=== PATIENT | female | born 1945 | race Caucasian/White ===

== ENCOUNTER → 2023-05-30 08:54 | Outpatient (REF) | payer OTHER, SELFPAY ==
[2023-05-30 10:24] LABS: % Basophils 0.6 % (0-2); % Eosinophils 1.1 % (0-6); % Immature Granulocytes 0.6 % (0-0.5); % Lymphocytes 15.9 % (20.5-51.1); % Monocytes 7.6 % (1.7-9.3); % Neutrophils 74.2 % (42.2-75.2); Absolute Basophils 0.1 10^3/uL (0-0.2); Absolute Eosinophils 0.1 10^3/uL (0-0.7); Absolute Immature Granulocytes 0.1 10^3/uL (0-0.05); Absolute Lymphocytes 1.5 10^3/uL (1.2-3.4); Absolute Monocytes 0.7 10^3/uL (0.1-0.6); Absolute Neutrophils 7.1 10^3/uL (1.4-6.5); Hematocrit 31.7 % (37.0-47.0); Hemoglobin 9.8 g/dL (12.0-16.0); Mean Corp Hgb Conc. 30.9 g/dL (33.0-37.0); Mean Corpuscular Hgb 31.1 pg (27.0-31.0); Mean Corpuscular Volume 100.6 fL (81.0-99.0); Mean Platelet Volume 8.1 fL (7.4-10.4); Nucleated Red Blood Cells % 0 %; Platelet Count 338 10^3/uL (130-400); Red Blood Cell Count 3.15 10^6/uL (4.20-5.40); Red Cell Dist. Width 13.3 % (11.5-14.5); White Blood Cell Count 9.5 10^3/uL (4.8-10.8)
[2023-05-30 10:53] LABS: ALT (SGPT) 22 U/L (0-35); AST (SGOT) 44 U/L (14-36); Albumin 3.9 g/dl (3.5-5.0); Alkaline Phosphatase 92 U/L (38-126); Blood Urea Nitrogen 31 mg/dl (7-17); Calcium 9.6 mg/dl (8.4-10.2); Carbon Dioxide 24 mmol/L (22-30); Chloride 105 mmol/L (98-107); Glucose 83 mg/dl (70-99); HDL Cholesterol 91 mg/dl; LDL Cholesterol, Calculated 76 mg/dl; Potassium 4.9 mmol/L (3.5-5.1); Sodium 137 mmol/L (135-145); Total Bilirubin 0.5 mg/dl (0.2-1.3); Total Cholesterol 183 mg/dl (50-199); Total Protein 7.5 g/dl (6.3-8.2); Triglyceride 81 mg/dl (10-149); Very Low Density Lipoprotein 16 mg/dl (0-30); eGFR 51.75
[2023-05-30 11:30] LABS: TSH Reflex To Free T4 5.32 uIU/ml (0.47-4.68)
[2023-05-30 11:59] LABS: Free T4 0.98 ng/dl (0.78-2.19)
== END ==
LOC: RAD 08:54
PROVIDERS: ATTENDING PHYSICIAN Internal Medicine Rheumatology; FAMILY PHYSICIAN Physician Assistant
DX: M81.0 Age-related osteoporosis without current pathological fracture (principal); Z13.820 Encounter for screening for osteoporosis; D63.8 Anemia in other chronic diseases classified elsewhere; E55.9 Vitamin D deficiency, unspecified; J44.9 Chronic obstructive pulmonary disease, unspecified
CPT/HCPCS: 36415; 77080; 80053; 80061; 84439; 84443; 85025; 86140

== ENCOUNTER → 2023-11-25 08:59 | Outpatient (REF) | payer OTHER, SELFPAY ==
[2023-11-25 10:02] LABS: % Basophils 0.9 % (0-2); % Immature Granulocytes 0.5 % (0-0.5); % Lymphocytes 10.9 % (20.5-51.1); % Monocytes 7.5 % (1.7-9.3); % Neutrophils 79.2 % (42.2-75.2); Absolute Basophils 0.1 10^3/uL (0-0.2); Absolute Eosinophils 0.1 10^3/uL (0-0.7); Absolute Immature Granulocytes 0.1 10^3/uL (0-0.05); Absolute Monocytes 0.7 10^3/uL (0.1-0.6); Absolute Neutrophils 7.4 10^3/uL (1.4-6.5); Hematocrit 31.6 % (37.0-47.0); Mean Corp Hgb Conc. 31.6 g/dL (33.0-37.0); Mean Corpuscular Volume 104.3 fL (81.0-99.0); Nucleated Red Blood Cells % 0 %; Platelet Count 429 10^3/uL (130-400); Red Blood Cell Count 3.03 10^6/uL (4.20-5.40); Red Cell Dist. Width 13.3 % (11.5-14.5); White Blood Cell Count 9.4 10^3/uL (4.8-10.8)
[2023-11-25 10:25] LABS: ALT (SGPT) 21 U/L (0-35); AST (SGOT) 49 U/L (14-36); Albumin 4.2 g/dl (3.5-5.0); Alkaline Phosphatase 92 U/L (38-126); Blood Urea Nitrogen 41 mg/dl (7-17); Calcium 10.3 mg/dl (8.4-10.2); Carbon Dioxide 25 mmol/L (22-30); Chloride 102 mmol/L (98-107); Glucose 83 mg/dl (70-99); Iron 119 ug/dl (37-170); Potassium 5.2 mmol/L (3.5-5.1); Sodium 136 mmol/L (135-145); Total Bilirubin 0.5 mg/dl (0.2-1.3); Total Protein 7.6 g/dl (6.3-8.2); eGFR 51.75
[2023-11-25 10:37] LABS: Percent Saturation 46 % (20-50); Total Iron Binding Capacity 257 ug/dl (265-497)
[2023-11-25 11:08] LABS: Hepatitis B Surface Antigen Negative (Negative)
[2023-11-25 11:26] LABS: Hepatitis B Core Ab, Total Negative (Negative); Hepatitis C Antibody Negative (Negative)
[2023-11-25 11:56] LABS: Vitamin D, 25-OH*** 46.7 ng/mL (30-80)
[2023-11-25 12:14] LABS: Ferritin 42.8 ng/ml (11.1-264.0)
[2023-11-25 13:24] LABS: Folate > 20.0 ng/ml (2.76-20); Vitamin B12 836 pg/ml (239-931)
[2023-11-27 11:47] LABS: Quantiferon Mitogen minus NIL 9.94 IU/mL; Quantiferon NIL 0.01 IU/mL; Quantiferon Plus TB1 minus NIL 0.01 IU/mL (<=0.34); Quantiferon Plus TB2 minus NIL 0.01 IU/mL (<=0.34); Quantiferon TB Gold Plus Negative (Negative)
== END ==
LOC: REG 08:59
PROVIDERS: ATTENDING PHYSICIAN Internal Medicine Rheumatology; FAMILY PHYSICIAN Physician Assistant
DX: D63.8 Anemia in other chronic diseases classified elsewhere (principal); E55.9 Vitamin D deficiency, unspecified; J44.9 Chronic obstructive pulmonary disease, unspecified; M05.9 Rheumatoid arthritis with rheumatoid factor, unspecified; M15.9 Polyosteoarthritis, unspecified; M85.80 Other specified disorders of bone density and structure, unspecified site; R79.82 Elevated C-reactive protein (CRP); R94.5 Abnormal results of liver function studies; Z11.1 Encounter for screening for respiratory tuberculosis; Z11.59 Encounter for screening for other viral diseases; Z79.899 Other long term (current) drug therapy
CPT/HCPCS: 36415; 80053; 82306; 82607; 82728; 82746; 83540; 83550; 85025; 86140; 86480; 86704; 86803; 87340

== ENCOUNTER → 2024-01-08 16:02 | Outpatient (REF) | payer OTHER, SELFPAY | LOC: WDC 16:02 | PROVIDERS: ATTENDING PHYSICIAN Physician Assistant | DX: Z12.31 Encounter for screening mammogram for malignant neoplasm of breast (principal) | CPT/HCPCS: 77063; 77067 ==

== ENCOUNTER 2024-02-22 15:08 | Inpatient (IN) | payer OTHER, MEDICARE, SELFPAY ==
[2024-02-22 11:03] VITALS: BP 129/78
[2024-02-22 12:00] VITALS: BP 134/61
--- NOTE | 2024-02-22 12:34 | ED.GENMED ---
History of Present Illness
General
Chief Complaint: Fall
Source: patient
Time Seen by Provider: 02/22/24 12:09
History of Present Illness
History of Present Illness:
78yoF with a history of COPD and rheumatoid arthritis presenting for evaluation after a fall. Patient was at home yesterday afternoon when she lost her footing and fell directly on her right hip. She denies any head strike or loss of
consciousness. She was able to get up immediately after the fall. Patient reports ongoing right hip pain since then although her pain is improved today. She has no other complaints and denies any paresthesias, headache, neck pain, back pain.
Oxygen saturation 87 to 89% here. She has baseline COPD and denies any shortness of breath or chest pain currently.
Past History
Past History
ED Past Medical History: Cancer (breast), COPD, HTN, Hypercholesterolemia and Psychiatric
ED Past Surgical History: Other (The patient has had a lumpectomy in the left breast, perforated bowel)
Social History
Tobacco: Former smoker
Alcohol: Former
Personal:
Living: with family
Phy Exam
General Physical Exam
General Presentation: well appearing and no apparent distress
General age: appears stated age
General Skin: warm and dry
General Habitus: normal and elderly
General Mental: alert
Cardiovascular Exam
Cardiovascular Exam: tachycardia
Pulmonary Exam
Pulmonary Exam: lungs clear, no respiratory distress, no crackles and no wheezing
Sameer Coma Scale
Eye Opening: Spontaneous
Verbal Response: Oriented
Motor Response: Obeys Commands
GCS Total Score: 15
Musculoskeletal Exam
Musculoskeletal Exam: other (R hip: No deformity or ecchymosis. No pain to palpation. No pain with passive internal/external rotation. ROM intact. 2+ DP pulse and sensation intact.)
Skin Exam
Skin Exam: normal color and warm/dry
Psychiatric Exam
Psychiatric Exam: normal mood/affect
Course
Orders/Labs/Results
Orders:
Orders
02/22/24 Lunch
Regular
At Your Request: Full Participation
02/22/24 11:12
Hip, Right 2-3 Views [CR Hip - RT w/wo Pel 2-3 Vw*] Urgent
Comment:
Reason For Exam: fall
Include a pelvis x-ray?: Yes
02/22/24 12:33
CT Pelvis W/o Iv Contrast Urgent
Comment:
Reason For Exam: R hip pain, abnormal x-ray
CR Femur - Right Min 2 Vw Urgent
Comment:
Reason For Exam: fall, hip fracture
02/22/24 14:11
Type+Screen Urgent
Complete Blood Count/With Diff Urgent
Comprehensive Metabolic Panel Urgent
02/22/24 14:31
CXR2 [CR Chest - 2 Views ] Routine
Comment:
Reason For Exam: hypoxemia
02/22/24 14:45
Admit/Transfer Patient As Directed
Co-Sign Provider:
Level of Care: Inpatient admission
Assign to:: Medical/Surgical
Physician / Group: Hospitalist
Diagnosis: Right Hip fracture
Reason for Hospitalization: as above
Expected length of stay greater than two midnights?: Yes
ELOS- Estimated Length of Stay in days: 3
I certify the patient meets the requirements for IP care: Yes
02/22/24 14:46
PRN Pain Medication Management As Directed
May give lesser potent ordered pain med per pt: Yes
preference::
Protocol:: Medication orders for pain may be administered in a
manner that supports deferring to patient preference
when the pt is:
- Requesting an ordered lesser potent pain medication.
Least to most potent pain medications are defined
as: acetaminophen < NSAID < tramadol < opioids
(morphine, oxycodone, hydromorphone).
- Requesting a lesser dose of the same medication IF
ORDERED.
- Requesting a less intrusive route of administration
if both routes are prescribed by the provider (PO <
IV).
02/22/24 14:51
Code Status As Directed
Resuscitation Status: Full Code
02/22/24 16:30
Acetaminophen [Tylenol] 650 mg PO Q4HWA
Magnesium Hydroxide [Milk of Magnesia] 30 ml PO DAILYPRN PRN
Oxycodone [Roxicodone] 5 mg PO Q4HPRN PRN
Prednisone [Deltasone] 5 mg PO DAILYPRN PRN
Tamsulosin [Flomax] 0.4 mg PO DAILYPRN PRN
02/22/24 16:30
ORTHOPEDIC CONSULT Routine
Consulting Provider: Hipolito Warren
Was physician already notified: Yes
Reason for consult: Right hip fracture
Activity As Directed
Activity Level: As Tolerated
Intake/ Output As Directed
Frequency: Per unit guidelines
Vital Signs As Directed
Frequency: Per unit guidelines
Oxygen Therapy [O2 Therapy] [RESP] Routine
Titrate/Wean O2 to maintain O2 sat greater than (%): 91
DX Deep Vein Thrombosis Video Routine
02/22/24 18:00
Enoxaparin Sodium [Lovenox] 40 mg SC QPM
Hydroxychloroquine [Plaquenil] 300 mg PO QPM
02/22/24 20:00
Docusate Sodium [Colace] 100 mg PO BID
Sennosides [Senokot] 17.2 mg PO BID
sulfasalazine 1 grams PO BID
02/22/24 22:00
Atorvastatin [Lipitor] 10 mg PO HS
Diphenhydramine [Benadryl] 50 mg PO HS
02/23/24 Breakfast
NPO
Allow oral meds: Yes
Allow clear liquids: No
02/23/24 08:00
Budesonide/Formoterol 80/4.5 [Symbicort 80/4.5 Mcg Inhaler] 2 puff INH R BID
Calcium Polycarbophil [Fibercon] 625 mg PO DAILY
Escitalopram Oxalate [Lexapro] 20 mg PO DAILY
Lactobac/Bifidobac [Visbiome] 1 cap PO DAILY
Lisinopril [Zestril] 10 mg PO DAILY
glucosamine sulfate [Glucosamine] 500 mg PO DAILY
vilazodone 40 mg PO DAILY
Abnormal Lab Results
02/22/24
14:11
WBC 14.3 H 10^3/uL
(4.8-10.8)
RBC 2.71 L 10^6/uL
(4.20-5.40)
Hgb 9.0 L g/dL
(12.0-16.0)
Hct 27.8 L %
(37.0-47.0)
MCV 102.6 H fL
(81.0-99.0)
MCH 33.2 H pg
(27.0-31.0)
MCHC 32.4 L g/dL
(33.0-37.0)
Abs Immat Gran (auto) 0.1 H 10^3/uL
(0-0.05)
Absolute Neuts (auto) 12.0 H 10^3/uL
(1.4-6.5)
Absolute Lymphs (auto) 0.9 L 10^3/uL
(1.2-3.4)
Absolute Monos (auto) 1.2 H 10^3/uL
(0.1-0.6)
Immature Gran % 0.6 H %
(0-0.5)
Neutrophils % 83.8 H %
(42.2-75.2)
Lymphocytes % 6.4 L %
(20.5-51.1)
Sodium 134 L mmol/L
(135-145)
BUN 40 H mg/dl
(7-17)
Creatinine 1.2 H mg/dL
(0.6-1.0)
AST 58 H U/L
(14-36)
02/22/24 14:11
02/22/24 14:11
Vital Signs
Initial and Last Documented VS:
Initial Vital Signs
Temp Pulse Resp BP Pulse Ox
98.4 F 108 16 129/78 87
02/22/24 11:03 02/22/24 11:03 02/22/24 11:03 02/22/24 11:03 02/22/24 11:03
Last Documented Vital Signs
Temp Pulse Resp BP Pulse Ox
98.5 F 115 16 162/62 95
02/22/24 16:30 02/22/24 16:30 02/22/24 16:30 02/22/24 16:30 02/22/24 16:30
MDM/Problems Addressed
Differential Diagnosis Includes:
78yoF here with R hip pain after a fall last night. She is able to bear weight. Patient hypoxic to 87% in triage. Hx of COPD. She denies any respiratory complaints and respirations are non-labored. No deformity on exam and ROM of R hip normal. RLE
is neurovascularly intact. Differential diagnosis includes but is not limited to: fracture, strain, contusion
X-rays of R hip obtained in triage which show a likely fracture. Will proceed with CT pelvis and R femur x-rays.
*Critical Care Note
Total Time (30-74mins, 75-104mins- exclusive of procedures): Not Applicable
Update Note
Update Note:
CT confirms femoral neck fracture. Orthopedics team notified of patient and she was admitted for further management.
ED Attending Note
-
Portions of this chart may have been created with voice recognition software.� Occasional wrong word or��sound alike� substitutions may have occurred due to the inherent limitations of voice recognition software.
Discharge Plan
Departure
Patient Disposition: Admit
Date of Disposition: 02/22/24
Time of Disposition: 14:11
Presentation/result/management discussed w/ accepting MD/DO: Hospitalist
Discharge Problem:
Closed fracture of neck of right femur
Interventions
Interventions:
*Risk Screen - Suicide Last Done: 02/22/24 11:03
*General Assessment Last Done: 02/22/24 11:03
*Neglect/Abuse Screening Last Done: 02/22/24 11:03
ED- Fall Risk Assessment Last Done: 02/22/24 16:13
*ED COVID-19 Vaccine History Last Done: 02/22/24 11:46
*Nursing Disposition Last Done: 02/22/24 16:13
ED-Musculoskeletal Assessment Last Done: 02/22/24 11:47
ED- Neurological Assessment Last Done: 02/22/24 11:47
ED-Skin Assessment Last Done: 02/22/24 11:47
Discharge Date and Time
Discharge Date/Time: 02/22/24 16:20
[2024-02-22 13:00] VITALS: BP 151/64
[2024-02-22 14:00] VITALS: BP 155/71
[2024-02-22 14:16] LABS: % Basophils 0.6 % (0-2); % Eosinophils 0.3 % (0-6); % Immature Granulocytes 0.6 % (0-0.5); % Lymphocytes 6.4 % (20.5-51.1); % Monocytes 8.3 % (1.7-9.3); % Neutrophils 83.8 % (42.2-75.2); Absolute Basophils 0.1 10^3/uL (0-0.2); Absolute Immature Granulocytes 0.1 10^3/uL (0-0.05); Absolute Lymphocytes 0.9 10^3/uL (1.2-3.4); Absolute Monocytes 1.2 10^3/uL (0.1-0.6); Hematocrit 27.8 % (37.0-47.0); Mean Corp Hgb Conc. 32.4 g/dL (33.0-37.0); Mean Corpuscular Hgb 33.2 pg (27.0-31.0); Mean Corpuscular Volume 102.6 fL (81.0-99.0); Mean Platelet Volume 7.9 fL (7.4-10.4); Nucleated Red Blood Cells % 0 %; Platelet Count 309 10^3/uL (130-400); Red Blood Cell Count 2.71 10^6/uL (4.20-5.40); White Blood Cell Count 14.3 10^3/uL (4.8-10.8)
[2024-02-22 14:35] LABS: ALT (SGPT) 26 U/L (0-35); AST (SGOT) 58 U/L (14-36); Albumin 3.9 g/dl (3.5-5.0); Alkaline Phosphatase 85 U/L (38-126); Blood Urea Nitrogen 40 mg/dl (7-17); Calcium 9.5 mg/dl (8.4-10.2); Carbon Dioxide 25 mmol/L (22-30); Chloride 100 mmol/L (98-107); Glucose 83 mg/dl (70-99); Potassium 4.7 mmol/L (3.5-5.1); Sodium 134 mmol/L (135-145); Total Bilirubin 0.4 mg/dl (0.2-1.3); Total Protein 7.5 g/dl (6.3-8.2); eGFR 46.62
--- NOTE | 2024-02-22 14:48 | CON.ORTHO ---
Consultation
-
Date/Time Consultation Requested: 02/22/2024 1430
Date/Time Consultation Performed: 02/22/2024; 1448
Requesting Provider: Dunia Clark PA-C
Performing Provider: Dr. Hipolito Warren / Melodie Lozano PA-C
Reason for Consultation: Right femoral neck fracture
Consultation - Orthopedics
History
Patient was seen and evaluated by both Dr. Warren and myself.
Ms. Gonzalez is a 78 year old female with PMH of COPD, rheumatoid arthritis and osteoporosis seen today for evaluation of her right hip. She reports she tripped while walking yesterday and landed directly on her right hip. She experienced onset of pain,
but was able to get up and continue ambulating. She reports she experienced discomfort in the hip following the incident, and presented to ED at the urging of her daughter and son-in-law. She is resting comfortably in bed at present. She denies
pain elsewhere. She lives at home with her , Brandon, who is at the bedside today. She typically ambulates without assistance. She denies PMH of DM, DVT, CVA or DC. She is not on any daily blood thinners. She reports breathing difficulty after
general anesthesia years ago when she underwent abdominal surgery. She denies history of other orthopedic surgeries.
Allergies / Home Medications
Allergy/AdvReac Type Severity Reaction Status Date / Time
cefaclor [From Ceclor] Allergy hives, Verified 02/22/24 11:03
flushed
�Medication �Instructions �Recorded
escitalopram oxalate 20 mg tablet 20 mg PO DAILY ##0 02/05/14
hydroxychloroquine 200 mg tablet 300 mg PO QPM 04/27/17
Lactobac no.2-Bifidobac no.1-S. 1 cap PO DAILY 02/22/24
thermo 112.5 billion cell capsule
(Visbiome)
calcium polycarbophil 625 mg 625 mg PO DAILY 02/22/24
tablet (Fiber (calcium
polycarbophil))
diphenhydramine 25 2 tab PO HS 02/22/24
mg-acetaminophen 500 mg tablet
(Tylenol PM Extra Strength)
fluticasone fur. 100 mcg-umeclid 1 inh inhalation R DAILY 02/22/24
62.5 mcg-vilant 25 mcg
inhalat.powder (Trelegy Ellipta)
glucosamine sulfate 500 mg tablet 500 mg PO DAILY 02/22/24
(Glucosamine)
lisinopril 10 1 tab PO DAILY 02/22/24
mg-hydrochlorothiazide 12.5 mg
tablet
prednisone 5 mg tablet 5 mg PO DAILYPRN PRN joint pain 02/22/24
simvastatin 20 mg tablet 20 mg PO HS 02/22/24
sulfasalazine 500 mg 1 g PO BID 02/22/24
tablet,delayed release
therapeutic multivitamin 1 tab PO DAILY 02/22/24
vilazodone 40 mg tablet 40 mg PO DAILY 02/22/24
Vital Signs / Lab Results
Temp Pulse Resp BP Pulse Ox
98.4 F 98 16 155/71 87
02/22/24 11:03 02/22/24 14:05 02/22/24 14:05 02/22/24 14:00 02/22/24 14:01
02/22/24 14:11
02/22/24 14:11
XR Right Hip IMPRESSION:
Likely mildly impacted subcapital fracture, neck, proximal right femur.
CT Pelvis IMPRESSION:
1. Minimally displaced, slightly impacted fracture of the right femoral neck.
2. No additional fractures are appreciated.
Directed exam of the right lower extremity reveals no obvious erythema, ecchymosis or lesions. No tenderness to palpation about the hip. Thigh soft and compressible. Hip ROM deferred secondary to known hip fracture. Minimal discomfort with log roll.
Calf soft and nontender. Patient able to wiggle toes, plantar and dorsiflex ankle. Neurovascularly intact distally.
Assessment / Plan
Right femoral neck fracture
--Unfortunately, Gerri sustained a right femoral neck fracture in her fall. Both surgical and non-surgical treatment options were discussed in detail. We recommend proceeding with a right hip bipolar endoprosthesis. The risks, benefits, alternatives,
recovery process and potential complications were discussed in detail. She would like to proceed with surgical intervention of her fracture. Surgical and blood consent is signed and has been scanned into the patient's chart. We will plan to proceed
with surgery tomorrow under the direction of Dr. Warren. Ideally, this would be done under spinal anesthesia given patient's baseline COPD and history of breathing difficulty after general anesthesia.
--NPO after midnight for OR tomorrow (02/22).
--Bedrest until surgery. NWB to RLE.
--Pain control as needed. Ice prn for pain and edema control.
--Antibiotics and irrigation ordered to OR.
--Patient is anemic (hgb 9.0) on presentation to ED today. Repeat H&H in AM.
--Type+screen ordered and pending.
--Orthopedics will continue to follow along.
--- NOTE | 2024-02-22 14:55 | HPS.HSE ---
Addendum entered and electronically signed by Faraz Vallejo MD 02/22/24 16:03:
I personally performed a history and physical exam of the patient and discussed management with the resident. I reviewed the resident's note and agree with the documented findings and plan of care [facility]/CC.
Original Note:
Family Physician
-
Family Physician: Abena Abad
Chief Complaint
-
fall
History of Present Illness
This is a 78-year-old female with history of COPD, rheumatoid arthritis, hypertension, hypercholesterolemia who presented to ED for evaluation after a fall. Patient reports she was walking out of a driveway, she lost her footing as she fell
directly on her right hip. She denies hitting her head on the floor. She was able to get up immediately after the fall. She did not lose consciousness before the fall, and considers it a mechanical fall. Per daughter in the room, patient has
been having unsteadiness over the past few months. She has had only 1 fall in the past year, 2 falls in total over the past 10 years. She was brought to the ED mainly because of the ongoing unsteadiness. Patient reports ongoing right hip pain
since the fall. The pain has improved with Tylenol use. She denies headaches, back pain, chest pain. In addition, patient with a history of COPD. She has had an increase of oxygen demand over the past few months. She does not use oxygen at
home. Per daughter, O2 sats ranges from 88 to 90% on room air at home. On presentation to ER, patient is afebrile, with blood pressure 129/78, respiratory rate 16, O2 sats 89% on room air. Evaluation with a pelvis CT shows a minimally
displaced, slightly impacted fracture of the right femoral neck.
Medical History
Past Medical History
Past Medical History: Reports Other (Breast cancer, COPD, hypertension, hypercholesterolemia, anxiety/depression)
Past Surgical History: Reports Other (Lumpectomy for left breast cancer, perforated bowel)
Social History
Tobacco: Former Smoker (1 pack/day for 30 years, she quit 2009.)
Alcohol: None
Drug: None
Personal:
Living: With Family
Family History
Family History: Not pertinent
Allergies / Home Medications
Allergies reflects when Allergies were last updated in [employer].
Home Medications with original date entered in [employer]
Allergy/Medication List:
Allergies
Allergy/AdvReac Type Severity Reaction Status Date / Time
cefaclor [From [facility]] Allergy hives, Verified 02/22/24 11:03
flushed
Home Medications
escitalopram oxalate 20 mg tablet 20 mg PO DAILY ##0 02/05/14
hydroxychloroquine 200 mg tablet 300 mg PO QPM 04/27/17
Lactobac no.2-Bifidobac no.1-S. thermo 112.5 billion cell capsule (Visbiome) 1 cap PO DAILY 02/22/24
calcium polycarbophil 625 mg tablet (Fiber (calcium polycarbophil)) 625 mg PO DAILY 02/22/24
diphenhydramine 25 mg-acetaminophen 500 mg tablet (Tylenol PM Extra Strength) 2 tab PO HS 02/22/24
fluticasone fur. 100 mcg-umeclid 62.5 mcg-vilant 25 mcg inhalat.powder (Trelegy Ellipta) 1 inh inhalation R DAILY 02/22/24
glucosamine sulfate 500 mg tablet (Glucosamine) 500 mg PO DAILY 02/22/24
lisinopril 10 mg-hydrochlorothiazide 12.5 mg tablet 1 tab PO DAILY 02/22/24
prednisone 5 mg tablet 5 mg PO DAILYPRN PRN joint pain 02/22/24
simvastatin 20 mg tablet 20 mg PO HS 02/22/24
sulfasalazine 500 mg tablet,delayed release 1 g PO BID 02/22/24
therapeutic multivitamin 1 tab PO DAILY 02/22/24
vilazodone 40 mg tablet 40 mg PO DAILY 02/22/24
Review of Systems
-
A 12 point ROS was completed and negative except as noted: Yes
Constitutional: Reports See HPI
Respiratory: Reports No Symptoms
Cardiac: Reports No Symptoms
Physical Exam
Vital Signs
Vital Signs
Temp Pulse Resp BP Pulse Ox
98.4 F 98 16 155/71 87
02/22/24 11:03 02/22/24 14:05 02/22/24 14:05 02/22/24 14:00 02/22/24 14:01
Physical Exam
General: No Apparent Distress
HEENT: NormoCephalic
Respiratory: Wheezes (Expiratory wheezes); No Crackles
Cardiac: S1/S2 and Regular Rhythm
GI: Soft, Non Tender, Non Distended and Normal Bowel Sounds
Musculoskeletal: No Edema
Neuro: Awake, Alert, Oriented and AO x 3
Psych: Calm
Laboratory Results
-
02/22/24 14:11
02/22/24 14:11
Laboratory Results
Total Bilirubin 0.4 mg/dl (0.2-1.3) 02/22/24 14:11
AST 58 U/L (14-36) H 02/22/24 14:11
ALT 26 U/L (0-35) 02/22/24 14:11
Alkaline Phosphatase 85 U/L (38-126) 02/22/24 14:11
Impression/Plan
-
IMPRESSION/PLAN
# Acute right femoral neck fracture s/p fall
-Xray Right Hip- Likely mildly impacted subcapital fracture, neck, proximal right femur.
-Ortho consulted
-Nonweightbearing to right lower extremity
-Pain control as needed
-Perioperative cardiovascular risk assessment for noncardiac surgery- the patient's MET score > 4.
-patient is low�moderate risk for orthopedic surgery
-patient appears medically optimized for orthopedic surgery at this time.
#Acute hypoxemic respiratory insufficiency likely secondary to COPD progression
-Check chest x-ray
-Qhlyl-jzs-jdris oxygen, titrate to 91%
-Continue Trelegy Ellipta
-Will possibly need home O2 assessment prior to discharge
# Essential hypertension
-Continue home meds lisinopril/hydrochlorothiazide
# CKD 3B
-Creatinine at baseline
#Anemia
-Hgb on presentation 9.0, (baseline runs at this level 9�10)
-Possibly anemia of chronic disease
# Rheumatoid arthritis
-Continue hydroxychloroquine
#Hyperlipidemia
-Continue statins
# Depression/anxiety
-Continue escitalopram, vilazodone
CODE STATUS-full code
DVT prophylaxis-Lovenox
--- NOTE | 2024-02-22 14:55 | W.PN.UPDATE ---
Update Note
Progress Note Update
I personally performed a history and physical exam of the patient and discussed management with the resident. I reviewed the resident's note and agree with the documented findings and plan of care HPI/CC.
78-year-old female presents after mechanical fall resulting in a right femoral neck fracture. No other acute complaints. As per patient's family over the last number of weeks they have noticed that she is in the mid-80s pulse ox on room air.
Gen: NAD, Awake and alert, appears chronically ill
Eyes: EOMI, PERRLA, no scleral icterus.
Neck: supple.
CV: RRR, +S1/S2, no m/r/g.
Resp: Very faint expiratory wheezes, no rales or rhonchi.
Abd: +BS, soft, NT, ND
Skin: No rashes.
Neuro: CN 2-12 intact, non-focal.
Psych: Normal mood and affect.
Lab Results
02/22/24
14:11
WBC 14.3 H
RBC 2.71 L
Hgb 9.0 L
Hct 27.8 L
MCV 102.6 H
MCH 33.2 H
MCHC 32.4 L
RDW 14.0
Plt Count 309
MPV 7.9
Abs Immat Gran (auto) 0.1 H
Absolute Neuts (auto) 12.0 H
Absolute Lymphs (auto) 0.9 L
Absolute Monos (auto) 1.2 H
Absolute Eos (auto) 0.0
Absolute Basos (auto) 0.1
Immature Gran % 0.6 H
Neutrophils % 83.8 H
Lymphocytes % 6.4 L
Monocytes % 8.3
Eosinophils % 0.3
Basophils % 0.6
Nucleated RBC % 0
Sodium 134 L
Potassium 4.7
Chloride 100
Carbon Dioxide 25
BUN 40 H
Creatinine 1.2 H
eGFR 46.62
Glucose 83
Calcium 9.5
Total Bilirubin 0.4
AST 58 H
ALT 26
Alkaline Phosphatase 85
Total Protein 7.[address] Pelvis:
1. Minimally displaced, slightly impacted fracture of the right femoral neck.
2. No additional fractures are appreciated.
Acute right femoral neck fracture:
-Regarding perioperative cardiovascular risk assessment for noncardiac surgery the patient is MET score is greater than 4. Patient's family reports that they live in a two-story home and she 'climbs stairs all day.' Denies any symptoms that are
consistent with stable or unstable angina or decompensated congestive heart failure. Patient is not diabetic. Patient does have CKD3b which is a risk factor. Orthopedic surgery is moderate risk. Overall the patient is low�moderate risk for
orthopedic surgery. I recommend proceeding with planned orthopedic surgery as the benefit outweighs the risk. The patient appears medically optimized for orthopedic surgery at this time.
-discussed with ortho
Acute hypoxemic respiratory insufficiency:
-I suspect this is related to progression of the patient's COPD. Likely the patient requires oxygen [id number].
-check CXR
-I suspect the patient's leukocytosis with left shift is reactive. She currently is not reporting any symptoms that would suggest acute infection at this time.
-Will need home O2 eval prior to discharge
-cont Trelegy
Essential HTN:
-cont Lisionpril/HCTZ
RA:
-cont Plaquenil
FULL/Lovenox
[2024-02-22 16:30] VITALS: BP 162/62
[2024-02-22] MEDS: TYLENOL 650 MG PO ×2 (17:20→20:56)
[2024-02-22] MEDS: ROXICODONE 5 MG PO (17:20)
[2024-02-22] MEDS: PLAQUENIL 300 MG PO (17:21)
[2024-02-22] MEDS: LOVENOX 40 MG SC (17:22)
[2024-02-22 19:15] VITALS: BMI 18.5
[2024-02-22] MEDS: COLACE PO (20:56)
[2024-02-22] MEDS: SENOKOT PO (20:56)
[2024-02-22] MEDS: BENADRYL 50 MG PO (20:57)
[2024-02-22] MEDS: LIPITOR 10 MG PO (20:57)
[2024-02-22] MEDS: NON-FORMULARY ITEM 1000 GRAMS PO (20:59)
[2024-02-22 23:30] VITALS: BP 116/44
[2024-02-22] MEDS: TYLENOL PO (23:39)
[2024-02-23] VITALS (17 sets, daily range): BP systolic 95–147; BP diastolic 51–70
[2024-02-23] MEDS: ROXICODONE 5 MG PO ×2 (00:27→20:07)
[2024-02-23] MEDS: TYLENOL PO ×2 (04:12→17:08)
[2024-02-23 06:56] LABS: % Basophils 0.8 % (0-2); % Eosinophils 2.1 % (0-6); % Immature Granulocytes 0.4 % (0-0.5); % Lymphocytes 8.4 % (20.5-51.1); % Monocytes 10.9 % (1.7-9.3); % Neutrophils 77.4 % (42.2-75.2); Absolute Basophils 0.1 10^3/uL (0-0.2); Absolute Eosinophils 0.2 10^3/uL (0-0.7); Absolute Lymphocytes 0.8 10^3/uL (1.2-3.4); Absolute Neutrophils 7.3 10^3/uL (1.4-6.5); Hematocrit 26.9 % (37.0-47.0); Hemoglobin 8.5 g/dL (12.0-16.0); Mean Corp Hgb Conc. 31.6 g/dL (33.0-37.0); Mean Corpuscular Hgb 32.9 pg (27.0-31.0); Mean Corpuscular Volume 104.3 fL (81.0-99.0); Mean Platelet Volume 8.2 fL (7.4-10.4); Nucleated Red Blood Cells % 0 %; Platelet Count 307 10^3/uL (130-400); Red Blood Cell Count 2.58 10^6/uL (4.20-5.40); Red Cell Dist. Width 14.1 % (11.5-14.5); White Blood Cell Count 9.4 10^3/uL (4.8-10.8)
[2024-02-23 07:41] LABS: Blood Urea Nitrogen 33 mg/dl (7-17); Carbon Dioxide 21 mmol/L (22-30); Chloride 103 mmol/L (98-107); Estimated Creatinine Clearance 30 ml/min; Glucose 80 mg/dl (70-99); Potassium 4.8 mmol/L (3.5-5.1); Sodium 139 mmol/L (135-145); eGFR 51.75
[2024-02-23] MEDS: SYMBICORT 80/4.5 MCG INHALER 2 PUFF INH (07:44)
[2024-02-23] MEDS: SPIRIVA RESPIMAT 2.5 MCG 2 PUFF INH (07:44)
--- NOTE | 2024-02-23 08:06 | W.PN.HOSP.TC ---
Addendum entered and electronically signed by Faraz Vallejo MD 02/23/24 10:56:
I saw and evaluated the patient. I reviewed the resident�s note and agree with findings and plan as documented in the resident�s note.
Gen: remains NAD, Awake and alert, appears chronically ill
Eyes: EOMI, PERRLA, no scleral icterus.
Neck: supple.
CV: remains RRR, +S1/S2, no m/r/g.
Resp: CTAB anteriorly
Abd: +BS, soft, NT, ND
Skin: No rashes.
Neuro: CN 2-12 intact, non-focal.
Psych: Normal mood and affect.
CT Pelvis:
1. Minimally displaced, slightly impacted fracture of the right femoral neck.
2. No additional fractures are appreciated.
CXR:
1. Hyperinflation and interstitial coarsening, increased compared to prior chest x-ray.
2. Differential diagnosis includes worsening COPD or superimposed acute interstitial pneumonitis.
3. No evidence of lobar pneumonia, pleural effusion, or pneumothorax.
Acute right femoral neck fracture:
-Regarding perioperative cardiovascular risk assessment for noncardiac surgery the patient is MET score is greater than 4. Patient's family reports that they live in a two-story home and she 'climbs stairs all day.' Denies any symptoms that are
consistent with stable or unstable angina or decompensated congestive heart failure. Patient is not diabetic. Patient does have CKD3b which is a risk factor. Orthopedic surgery is moderate risk. Overall the patient is low�moderate risk for
orthopedic surgery. I recommend proceeding with planned orthopedic surgery as the benefit outweighs the risk. The patient appears medically optimized for orthopedic surgery at this time.
-discussed with ortho
-ortho giving 2U pRBCs preop
Acute hypoxemic respiratory insufficiency:
-I suspect this is related to progression of the patient's COPD. Likely the patient requires oxygen [id number].
-CXR findings above likely due to COPD that is progressing
-I suspect the patient's leukocytosis with left shift was likely reactive and has resolved
-Will need home O2 eval prior to discharge
-cont Trelegy
Essential HTN:
-cont Lisionpril/HCTZ
RA:
-cont Plaquenil
FULL/Lovenox
Original Note:
Today's Communication/Plan
-
.
Assessment / Plan
Assessment / Plan
# Acute right femoral neck fracture s/p fall
-Xray Right Hip- Likely mildly impacted subcapital fracture, neck, proximal right femur.
-Ortho consulted, PLAN FOR OR today.
-Nonweightbearing to right lower extremity
-Pain control as needed
-Perioperative cardiovascular risk assessment for noncardiac surgery- the patient's MET score > 4.
-patient is low�moderate risk for orthopedic surgery
-patient appears medically optimized for orthopedic surgery at this time.
#Acute hypoxemic respiratory insufficiency likely secondary to COPD progression
-chest x-ray 02/21- Hyperinflation and interstitial coarsening increased indicative of worsening COPD or superimposed acute interstitial pneumonitis.
-Jdacz-[id number] oxygen, titrate to 91%.
-Continue Trelegy Ellipta
-Will possibly need home O2 assessment prior to discharge
# Essential hypertension
-Continue home meds lisinopril/hydrochlorothiazide
# CKD 3B
-Creatinine at baseline
#Anemia
-Hgb on presentation 9.0, today 8.5 (baseline runs at level 9�10)
-Transfuse 2 units now prior to OR.
-Possibly anemia of chronic disease
# Rheumatoid arthritis
-Continue hydroxychloroquine
#Hyperlipidemia
-Continue statins
# Depression/anxiety
-Continue escitalopram, vilazodone
CODE STATUS-full code
DVT prophylaxis-Lovenox
Anticipated Discharge: > 48 hours
Subjective/Interval History
-
Date of Service: February 23, 2024
Objective Data
-
Labs:
Laboratory Results
02/23/24
05:15
WBC 9.4
Hgb 8.5 L
Hct 26.9 L
Plt Count 307
Sodium 139
Potassium 4.8
Chloride 103
Carbon Dioxide 21 L
BUN 33 H
Creatinine 1.1 H
Glucose 80
Calcium 9.0
Vital Signs:
Vital Signs
Temp Pulse Resp BP Pulse Ox
97.9 F 87 16 116/44 94
02/22/24 23:30 02/23/24 07:50 02/23/24 07:50 02/22/24 23:30 02/23/24 07:50
I&O
02/22/24 02/23/24 02/24/24
06:59 06:59 06:59
Intake Total 60 / 60
Output Total 500 / 500
Balance -440 / -440
Review of Systems
-
All other systems: Reviewed and negative (except as documented)
Physical Exam
-
General: No Apparent Distress
HEENT: Other (EOMI)
Respiratory: Wheezes; Negative Rhonchi or Crackles
Cardiac: Regular Rhythm and S1/S2
GI: Soft, Nontender, Nondistended and Normal Bowel Sounds
Musculoskeletal: No Edema
Neuro: AO x 3
Psych: Calm
[2024-02-23] MEDS: NON-FORMULARY ITEM 40 MG PO (08:20)
[2024-02-23] MEDS: NON-FORMULARY ITEM 1000 GRAMS PO ×2 (08:24→21:55)
[2024-02-23] MEDS: LEXAPRO 20 MG PO (08:25)
[2024-02-23] MEDS: VISBIOME 1 CAP PO (08:25)
[2024-02-23] MEDS: ZESTRIL 10 MG PO (08:25)
[2024-02-23] MEDS: TYLENOL 650 MG PO ×3 (08:25→19:56)
[2024-02-23] MEDS: FIBERCON 625 MG PO (08:26)
[2024-02-23] MEDS: ORETIC 12.5 MG PO (08:26)
[2024-02-23] MEDS: SENOKOT PO (08:28)
[2024-02-23] MEDS: COLACE PO (08:28)
--- NOTE | 2024-02-23 10:33 | CM ---
Patient seen at bedside with daughter Mirella
IA completed
Dx: R hip fx s/p fall
Patient lives in a 2 story home with , 2 steps to enter, flight of steps to 2nd floor
PLOF: Independent, driving
DME: states not in the home, but has access to DME
Denies housing/food/utilities/transportation insecurities
Patient receiving 2 units PRBC today - Hgb 8.5
OR today
Await PT/OT post-op
PCP: Abena Abad
Pharmacy: [facility]
PLAN: OR today, Await PT/OT evals post-op
[2024-02-23] MEDS: ATIVAN 0.5 MG PO ×2 (11:25→15:54)
--- NOTE | 2024-02-23 12:25 | W.PN.UPDATE ---
Update Note
Progress Note Update
Late entry from AM rounds due to [employer] issues.
Patient tentatively for right hip hemiarthroplasty a bit later today under the direction of Dr. Warren. Surgical and blood consents have been obtained. Operative site has been marked. ABX and irrigation products on-call. Subjectively patient
feeling well this morning, however Hgb 8.5. 2 units PRBCs ordered for transfusion this AM with a re-check of H&H around 1230. would anticipate an acceptable Hgb to proceed with right hip prosthesis. CBB notified of plan. Will be on the look out for
her results. Otherwise, she is to remain at bedrest for now. Remain NPO.
[2024-02-23 16:17] LABS: % Basophils 0.7 % (0-2); % Eosinophils 0.8 % (0-6); % Immature Granulocytes 0.7 % (0-0.5); % Lymphocytes 10.8 % (20.5-51.1); % Monocytes 8.9 % (1.7-9.3); % Neutrophils 78.1 % (42.2-75.2); Absolute Basophils 0.1 10^3/uL (0-0.2); Absolute Eosinophils 0.1 10^3/uL (0-0.7); Absolute Immature Granulocytes 0.1 10^3/uL (0-0.05); Absolute Monocytes 0.8 10^3/uL (0.1-0.6); Absolute Neutrophils 6.9 10^3/uL (1.4-6.5); Hemoglobin 11.2 g/dL (12.0-16.0); Mean Corpuscular Hgb 30.9 pg (27.0-31.0); Mean Corpuscular Volume 96.7 fL (81.0-99.0); Nucleated Red Blood Cells % 0 %; Platelet Count 275 10^3/uL (130-400); Red Blood Cell Count 3.62 10^6/uL (4.20-5.40); Red Cell Dist. Width 20.4 % (11.5-14.5); White Blood Cell Count 8.9 10^3/uL (4.8-10.8)
[2024-02-23] MEDS: SYMBICORT 80/4.5 MCG INHALER INH (20:07)
[2024-02-23] MEDS: ASPIRIN 325 MG PO (20:07)
[2024-02-23] MEDS: PLAQUENIL 300 MG PO (21:54)
[2024-02-23] MEDS: BACTROBAN 2% OINTMENT 1 APPLIC NASAL (21:55)
[2024-02-23] MEDS: NSS 1000 IV (21:55)
[2024-02-23] MEDS: SENOKOT 17.2 MG PO (21:55)
[2024-02-23] MEDS: COLACE 100 MG PO (21:55)
[2024-02-23] MEDS: LIPITOR 10 MG PO (21:56)
[2024-02-23] MEDS: LOVENOX SC (22:05)
--- NOTE | 2024-02-23 22:22 | PTCARENOTE ---
20:50 pt rec'vd from PACU, sleepy but easily arousable to verbal. Pt [address], primeaseal intact with pinpoint drainage, VS WNL, denies pain, hip precautions maintained. Daughter Mirella was notified. Pt oriented to unit.
--- NOTE | 2024-02-23 23:00 | PTCARENOTE ---
PT sleeping , Maritza held FUR MIXER OPERATOR made aware.
[2024-02-23] MEDS: BENADRYL PO (23:06)
[2024-02-24] MEDS: ANCEF 5 IV ×2 (00:24→08:25)
[2024-02-24] MEDS: TYLENOL 650 MG PO ×7 (00:24→23:59)
[2024-02-24 03:28] VITALS: BP 113/59
[2024-02-24 07:09] LABS: % Basophils 0.4 % (0-2); % Immature Granulocytes 0.8 % (0-0.5); % Lymphocytes 4.8 % (20.5-51.1); % Monocytes 5.4 % (1.7-9.3); % Neutrophils 88.6 % (42.2-75.2); Absolute Basophils 0.1 10^3/uL (0-0.2); Absolute Immature Granulocytes 0.1 10^3/uL (0-0.05); Absolute Lymphocytes 0.6 10^3/uL (1.2-3.4); Absolute Monocytes 0.6 10^3/uL (0.1-0.6); Absolute Neutrophils 10.5 10^3/uL (1.4-6.5); Hematocrit 33.6 % (37.0-47.0); Hemoglobin 10.8 g/dL (12.0-16.0); Mean Corp Hgb Conc. 32.1 g/dL (33.0-37.0); Mean Corpuscular Hgb 31.4 pg (27.0-31.0); Mean Corpuscular Volume 97.7 fL (81.0-99.0); Mean Platelet Volume 8.7 fL (7.4-10.4); Nucleated Red Blood Cells % 0 %; Platelet Count 269 10^3/uL (130-400); Red Blood Cell Count 3.44 10^6/uL (4.20-5.40); Red Cell Dist. Width 20.7 % (11.5-14.5); White Blood Cell Count 11.9 10^3/uL (4.8-10.8)
--- NOTE | 2024-02-24 07:24 | W.PN.ORTHO ---
Today's Communication / Plan
-
78-year-old female postop day 1 right hip hemiarthroplasty under the direction of Dr. Warren
--Weightbearing as tolerated to right lower extremity with assistive device. Total hip precautions for 6 to 8 weeks. We appreciate the assistance of PT/OT
-- Recommend ASA 325 mg daily x 4 weeks for DVT prophylaxis.
-- Hemoglobin 10.8 this morning. Continue to monitor. Patient did require 2 units PRBC preop.
-- Maintain surgical dressing until 7 to 10 days postop. Staple removal at 2 weeks postop.
-- Pain control as needed. Ice and elevation as needed for pain and edema control.
-- Case management consult for discharge planning.
-- Orthopedics will continue to follow along.`
Assessment
.
Distal Motor Intact: Yes
Dressing:
Clean, dry and intact.
Plan
.
Surgery / Date: Right hip hemiarthroplasty
DVT Prophylaxis: Aspirin
Activity:
Out of bed.
PT/OT
Subjective
.
.:
Ms. Gonzalez is postop day 1 following her right hip hemiarthroplasty performed by Dr. Warren. She is resting comfortably bed this morning and denies any pain in the hip at present. She has no questions or concerns at this time.
Vital Signs and Labs
.
Vital Signs and Labs:
Lab Results
02/24/24 04:55
Temp Pulse Resp BP Pulse Ox
97.3 F 98 18 113/59 95
02/24/24 03:28 02/24/24 03:28 02/24/24 03:28 02/24/24 03:28 02/24/24 03:28
Non-invasive Hgb result: 10.0
Physical Exam
-
Directed exam of the right lower extremity reveals surgical dressing clean, dry and intact. No significant tenderness to palpation about the hip. Thigh soft and compressible. Calf soft and nontender. Patient able to wiggle toes, plantar and
dorsiflex ankle. Neurovascular intact distally.
[2024-02-24 07:35] LABS: Blood Urea Nitrogen 40 mg/dl (7-17); Calcium 8.3 mg/dl (8.4-10.2); Carbon Dioxide 21 mmol/L (22-30); Chloride 104 mmol/L (98-107); Estimated Creatinine Clearance 28 ml/min; Glucose 68 mg/dl (70-99); Potassium 5.7 mmol/L (3.5-5.1); Sodium 138 mmol/L (135-145); eGFR 46.62
--- NOTE | 2024-02-24 07:40 | W.PN.HOSP.TC ---
Addendum entered and electronically signed by Faraz Vallejo MD 02/24/24 14:24:
Pulmonary cachexia
Addendum entered and electronically signed by Faraz Vallejo MD 02/24/24 10:25:
I personally performed a history and physical exam of the patient and discussed management with the resident. I reviewed the resident's note and agree with the documented findings and plan of care HPI/CC.
78-year-old female presents after mechanical fall resulting in a right femoral neck fracture. No other acute complaints. As per patient's family over the last number of weeks they have noticed that she is in the mid-80s pulse ox on room air.
Gen: continues to remain NAD, Awake and alert, appears chronically ill
Eyes: EOMI, PERRLA, no scleral icterus.
Neck: supple.
CV: continues to remain RRR, +S1/S2, no m/r/g.
Resp: CTAB
Abd: +BS, soft, NT, ND
Skin: No rashes.
Neuro: CN 2-12 intact, non-focal.
Psych: Normal mood and affect.
CXR:
1. Hyperinflation and interstitial coarsening, increased compared to prior chest x-ray.
2. Differential diagnosis includes worsening COPD or superimposed acute interstitial pneumonitis.
3. No evidence of lobar pneumonia, pleural effusion, or pneumothorax.
CT Pelvis:
1. Minimally displaced, slightly impacted fracture of the right femoral neck.
2. No additional fractures are appreciated.
Acute right femoral neck fracture:
-s/p R hip hemiarthroplasty
-discussed with ortho
-WBAT
-ASA 325 x 1 month
Acute hypoxemic respiratory failure:
-92% on 5L NC O2 this AM while working with PT
-I suspect this is related to progression of the patient's COPD. Likely the patient requires oxygen [id number].
-I suspect the patient's leukocytosis is reactive
-Will need home O2 eval prior to discharge
-cont Trelegy
-c/s pulm considering degree of hypoxia
Hyperkalemia:
-start Lokelma and IVFs
-recheck K at 1800
Hypoglycemia:
-start IVFs with dextrose
Essential HTN:
-cont Lisinopril/HCTZ with holding parameters
RA:
-cont Plaquenil
FULL/Lovenox
Total time spent on today's encounter was 50 minutes which included time spent in counseling the patient/family regarding diagnosis and treatment plan as listed above, goals of care, and symptom management. Case was discussed with nursing staff,
specialists, and care coordinators/case management. All labs and imaging personally reviewed by me. Remainder the time spent in detailed review of previous records, lab data, imaging, and other medical provider documentation.
Original Note:
Today's Communication/Plan
-
.
Assessment / Plan
Assessment / Plan
# Acute right femoral neck fracture s/p right hip hemiarthroplasty 02/23 under the direction of Dr. Warren
-Weightbearing as tolerated to right lower extremity
-Pain control as needed
-Ortho following
-ASA 325 mg daily x 4 weeks for DVT prophylaxis.
#Acute hypoxemic respiratory insufficiency likely secondary to COPD progression
-chest x-ray 02/21- Hyperinflation and interstitial coarsening increased indicative of worsening COPD or superimposed acute interstitial pneumonitis.
-Currently on 4L oxygen. Wean as tolerated. Although, not on Home O2.
-Continue Trelegy Ellipta
-Will possibly need home O2 assessment prior to discharge
# Essential hypertension
-Continue home Meds lisinopril/hydrochlorothiazide with holding parameters.
# Rheumatoid arthritis
-Continue hydroxychloroquine
#Hyperlipidemia
-Continue statins
# Depression/anxiety
-Continue escitalopram, vilazodone
CODE STATUS-full code
DVT prophylaxis-Aspirin 325MG
Anticipated Discharge: 24 - 48 hours
Subjective/Interval History
-
Patient seen and examined at bedside. On O2. Not in distress. Denies acute complaints. Denies chest pain.
Objective Data
-
Labs:
Laboratory Results
02/24/24
04:55
WBC 11.9 H
Hgb 10.8 L
Hct 33.6 L
Plt Count 269
Sodium 138
Potassium 5.7 H
Chloride 104
Carbon Dioxide 21 L
BUN 40 H
Creatinine 1.2 H
Glucose 68 L
Calcium 8.3 L
Vital Signs:
Vital Signs
Temp Pulse Resp BP Pulse Ox
97.3 F 98 18 113/59 95
02/24/24 03:28 02/24/24 03:28 02/24/24 03:28 02/24/24 03:28 02/24/24 03:28
I&O
02/23/24 02/24/24 02/25/24
06:59 06:59 06:59
Intake Total 60 / 60 2420 / 2420
Output Total 500 / 500 450 / 450
Balance -440 / -440 1969 / 1969
Review of Systems
-
All other systems: Reviewed and negative (except as documented)
Physical Exam
-
General: No Apparent Distress
Respiratory: Clear to Auscultation; Negative Rales or Crackles
Cardiac: S1/S2
GI: Soft, Nontender and Nondistended
Musculoskeletal: Other (rle with surgical dressing clean, dry and intact. No tenderness to palpation of hip. )
Neuro: AO x 3
Psych: Calm
[2024-02-24 07:50] VITALS: BP 101/45
[2024-02-24 08:01] LABS: Glucose - Point of Care 81 mg/dl (70-99)
[2024-02-24] MEDS: SYMBICORT 80/4.5 MCG INHALER 2 PUFF INH ×2 (08:23→19:48)
[2024-02-24] MEDS: SPIRIVA RESPIMAT 2.5 MCG 2 PUFF INH (08:23)
[2024-02-24] MEDS: FIBERCON 625 MG PO (08:25)
[2024-02-24] MEDS: ORETIC PO (08:25)
[2024-02-24] MEDS: ZESTRIL PO (08:25)
[2024-02-24] MEDS: ASPIRIN 325 MG PO (08:26)
[2024-02-24] MEDS: VISBIOME 1 CAP PO (08:26)
[2024-02-24] MEDS: BACTROBAN 2% OINTMENT 1 APPLIC NASAL ×2 (08:26→20:09)
[2024-02-24] MEDS: LEXAPRO 20 MG PO (08:26)
[2024-02-24] MEDS: NON-FORMULARY ITEM 1000 GRAMS PO ×2 (08:27→20:07)
[2024-02-24] MEDS: NON-FORMULARY ITEM 40 MG PO (08:28)
[2024-02-24] MEDS: SENOKOT 17.2 MG PO ×2 (08:30→20:08)
[2024-02-24] MEDS: COLACE 100 MG PO ×2 (08:30→20:09)
[2024-02-24] MEDS: D5/0.9% SODIUM CHLORIDE 1000 IV ×2 (09:56→21:51)
[2024-02-24] MEDS: LOKELMA 5 GRAM PO (09:57)
[2024-02-24] MEDS: ATIVAN 0.5 MG PO ×2 (10:02→21:16)
[2024-02-24 10:05] VITALS: BP 100/54; PULSE 100; O2SAT 92
--- NOTE | 2024-02-24 10:09 | CON.PUL ---
Consultation
Consultation Request
Date/Time Consultation Requested: 02/24/24
Date/Time Consultation Performed: 02/24/24
Performing Provider: Kameron
Reason for Consultation: COPD
Medical History
-
History of Present Illness:
Patient is a 78-year-old female with history of COPD, rheumatoid arthritis on chronic, hypertension, pulm nodules presenting to ER status post mechanical fall. She had fallen directly on her right hip without other trauma. She was notably
having unsteadiness over the past few months with history of numerous falls. A CT was obtained indicating a minimally displaced fracture of the right femoral neck. She has a history of COPD, last seen in our office in 2020 but has since been
following with [facility]. She has history of pulmonary nodules on prior CT, underwent bronchoscopy 3 years ago without evidence of NTM. She has never required oxygen as an outpatient. Of note, she has had increasing desaturation events at home over
the past few months, reportedly 88 to 90% on room air. On presentation she was 89% on room air. She also notes her SOB has been progressing as well over the past few months with no known triggers.
Underwent right hip cemented bipolar endoprosthesis 02/23/2024 under spinal anesthesia. She has had difficulty with general anesthesia in the past requiring intubation and prolonged mechanical ventilation.
.
Past Medical History
Past Medical History: Other (see list below)
Social History
Tobacco: Former Smoker
Alcohol: None
Drug: None
Family History
Family History: Reviewed & Not Pertinent
Allergies / Home Medications
Allergies
Allergy/AdvReac Type Severity Reaction Status Date / Time
cefaclor [From [facility]] Allergy hives, Verified 02/22/24 11:03
flushed
Home Medications
�Medication �Instructions �Recorded �Confirmed �Last Taken �Type
escitalopram oxalate 20 mg tablet 20 mg PO DAILY ##0 02/05/14 02/22/24 02/22/24 Rx
hydroxychloroquine 200 mg tablet 300 mg PO QPM Autoimmune Disorder 04/27/17 02/22/2402/20/24 History
Lactobac no.2-Bifidobac no.1-S. 1 cap PO DAILY Gastrointestinal 02/22/24 02/22/24 02/22/24 History
thermo 112.5 billion cell capsule Issue
(Visbiome)
calcium polycarbophil 625 mg 625 mg PO DAILY Supplement 02/22/24 02/22/24 02/22/24 History
tablet (Fiber (calcium
polycarbophil))
diphenhydramine 25 2 tab PO HS Pain 02/22/24 02/22/24 02/21/24 History
mg-acetaminophen 500 mg tablet
(Tylenol PM Extra Strength)
fluticasone fur. 100 mcg-umeclid 1 inh inhalation R DAILY 02/22/24 02/22/24 02/22/24 History
62.5 mcg-vilant 25 mcg Lung/Breathing Issues
inhalat.powder (Trelegy Ellipta)
glucosamine sulfate 500 mg tablet 500 mg PO DAILY Supplement 02/22/24 02/22/24 02/22/24 History
(Glucosamine)
lisinopril 10 1 tab PO DAILY Blood Pressure 02/22/24 02/22/24 02/22/24 History
mg-hydrochlorothiazide 12.5 mg
tablet
prednisone 5 mg tablet 5 mg PO DAILYPRN PRN joint pain 02/22/24 02/22/24 Unknown History
simvastatin 20 mg tablet 20 mg PO HS Anti-Inflammatory 02/22/24 02/22/24 02/21/24 History
sulfasalazine 500 mg 1 g PO BID Autoimmune Disorder 02/22/24 02/22/24 02/22/24 History
tablet,delayed release
therapeutic multivitamin 1 tab PO DAILY Supplement 02/22/24 02/22/24 02/22/24 History
vilazodone 40 mg tablet 40 mg PO DAILY Mental 02/22/24 02/22/24 02/22/24 History
Health/Anxiety
Review of Systems
-
History Source: Patient
All other systems: Negative unless noted
Vitals / Labs / Diagnostic Testing
Vital Signs
Temp Pulse Resp BP Pulse Ox
98.5 F 104 18 101/45 92
02/24/24 07:50 02/24/24 08:34 02/24/24 08:34 02/24/24 07:50 02/24/24 08:34
Lab Data
02/24/24 04:55
Diagnostic Testing:
Physical Exam
-
HEENT: Normocephalic, Anicteric and Moist Mucous Membranes
Cardiovascular: S1/S2 and Regular Rhythm
Respiratory: Rales and Non-Labored Respirations
GI: Soft, Non Distended and Non Tender
Neurology: Awake, Alert, Oriented, No Motor Deficits and Other (swan deformities and swelling of her b/l hands)
Skin: Warm, Dry and Good Color
General: Comfortable and Other (NAD)
Assessment
-
Patient is a 78-year-old female with history of COPD, rheumatoid arthritis on chronic, hypertension, pulm nodules presenting to ER status post mechanical fall. She had fallen directly on her right hip without other trauma. She was notably
having unsteadiness over the past few months with history of numerous falls. A CT was obtained indicating a minimally displaced fracture of the right femoral neck. She has a history of COPD, last seen in our office in 2020 but has since been
following with [facility]. Underwent right hip cemented bipolar endoprosthesis 02/23/2024 under spinal anesthesia. We are consulted for eval of SOB/hypoxemia.
Acute hypoxic respiratory insufficiency
Acute R hip fractures s/p cemented bipolar endoprosthesis 02/23/24
s/p mechanical fall
Hyperkalemia
Hypoglycemia
Acute on chronic SOB
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
Multiple lung nodules, measuring 3-5mm
Bronchoscopy results 06/12/20: No endobronchial lesions. BAL was performed in both lower lobes and right upper lobe/AFB neg
COPD
Followed by Dr Morrissey, last seen 2020
PFT - FEV1 was 1.26 L or 59% of predicted and previously was 1.50 L or 74% predicted
Cylindrical bronchiectasis RML and lingula
History of tobacco abuse/[id number] smoking history. Quit around 2009
History of pleural effusion
Interstitial lung disease
Rheumatoid arthritis w/ Immunosuppressed status
History of breast cancer s/p Left lumpectomy and axillary node dissection for stage I left breast carcinoma (1993, radiation/no chemo)
Plan
Hypoxemia noted on arrival, O2 regina 89% on RA
She has never required oxygen as an outpatient.
Of note, she has had increasing desaturation events at home over the past few months, reportedly 88 to 90% on room air.
Home O2 evaluation eventually will be needed
She also notes her SOB has been progressing as well over the past few months with no known triggers.
Prior history of lung disease is noted including COPD, bronchiectasis, pulmonary nodules
Reviewed records from our office in 2020, followed previously by Dr Morrissey
Had been following more recently at [place]--will obtain records
She has history of pulmonary nodules on prior CT, underwent bronchoscopy 3 years ago without evidence of NTM.
Prior imaging reviewed, she thinks last CT in April at [facility]
We will obtain another CT given recent progression of symptoms months prior to admission
Other imaging reviewed--nodules/bronchiectasis noted, prior bronch in 2020 negative for NTM
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
Unclear if this was treated
I will repeat sputum culture now/she is productive of mucus
Never had ECHO eval, will place new order
Check proBNP
Ortho following, s/p R hip intervention
Following care team postop management
Likely NWB, rehab needed at discharge
Will need outpatient pulmonary evaluation in our office for PFTs and 6MWT
Reviewed with patient, she wants to transfer back from [facility]
Reviewed all diagnostic w/u and answered all questions
We will follow
Diagnostic Data
Chest X-Ray: 02/22/24-1. Hyperinflation and interstitial coarsening, increased compared to prior chest x-ray.
2. Differential diagnosis includes worsening COPD or superimposed acute interstitial pneumonitis.
3. No evidence of lobar pneumonia, pleural effusion, or pneumothorax.
CT Scan: CHEST 08/11/20- LUNGS: There is moderate biapical scarring as seen on the prior examination. [place] spiculated 1.1 cm opacity in the anterior left upper lobe consistent with scarring and unchanged from the prior exam (image #10 series 2).
There is a posterior right upper lobe 0.7 cm nodule which is larger as compared with 0.5 cm prior (image #15 series 2). Just below this, there is a posterolateral right upper lobe 0.9 cm nodule (image #17 series 2). There was only small focus of
irregular opacity at this level on the prior exam (image #16 prior). Anterior right upper lobe 0.5 cm nodule is minimally larger as compared with prior (image #18 series 2). At the same level, posterior upper lobe 3 mm nodule is more conspicuous as
compared with the prior study (also image #18). Central right upper lobe approximately 0.5 cm nodule is without significant change (image #16 series 2). At the same level, another approximately 0.5 cm nodule just posterior to this is larger as
compared with approximately 0.4 cm prior (image #16 series 2). Largest nodule previously measured at 0.7 cm on the prior study has not increased in size (image #22 series 2). Just superior to that nodule in the lower lobe, another approximately 0.6
cm nodule is also unchanged in size (image #21). In the left upper lobe, 0.3 cm nodule and 0.2 to 0.3 cm nodule were both present prior (image #14 series 2). Slightly inferior to this, 0.4 cm nodule shows no significant interval increase in size
(image #18 series 2). There is superior segment left lower lobe small benign calcified granuloma.
There is no new consolidation. There is no pneumothorax. Mild interstitial and some micronodular opacities at the lung bases similar to prior, at least some probably related to chronic bronchiolitis. These are without significant progression, with
interval slight decrease of the atelectatic changes in the right middle lobe.
Echo:
PFT's: Spirometry-01/31/20: Spirometry demonstrated moderate obstructive lung disease. The forced vital capacity was 2.10 L or 74% of predicted. The FEV1 was 1.26 L or 59% of predicted. The FEV1/FVC ratio was 63%. There was no improvement in the
FEV1 postbronchodilator.
6MWT- On her 6 minute walk test 07/2018, her lowest saturation was 93%. She ambulated 150 feet less.
On her 6 minute walk test 05/24/20: Her saturation dropped from 95% to 90%. Resting heart rate was 98 and increased to 139. Her perceived dyspnea was 0 at baseline and increased to 2 on a 10 point scale. Her distance ambulated was 200 feet less than
it was in July 2018. In July 2018 her saturation regina was a bit higher at 93% and now 90%. Her maximum heart rate was 20 bpm higher.
Follow pulse oximetry with walking program at home.
Reports and relevant images were personally reviewed.
Total time spent on this consultation __80__ includes review of history, physical exam, medications, laboratory data, personal review of imaging, extensive review of outpatient records, discussion with care team and respiratory therapy.
--- NOTE | 2024-02-24 10:39 | VNURNOTE ---
Home Health Liaison met with patient, pt's sister Radha and spouse at bedside to discuss [facility] nurse/therapy, visits, schedule and homebound status. Patient is agreeable and understands that visits at home will be 2-3 x per week to assess and teach
medical management. [facility] brochure provided with contact information. Patient is aware that [facility] will contact them for start of care in 1-2 days after discharge from .
[facility] referral completed in [facility] Port.
--- NOTE | 2024-02-24 10:50 | CM ---
Addendum entered by Becka Ambriz 02/24/24 12:18:
PT rec. SNF - discussed options with patient and . [facility] (1st choice), [facility] referrals placed in careport.
CM will also need to obtain ins auth
Original Note:
Met with patient, sister Radha &
Case management consult for discharge planning/VN completed.
Await PT/OT to eval post-op
Discussed options
Patient would like to go home with VN-family supportive
Options discussed with patient/family - [facility] preferred
referral entered in careport.
PLAN: Await PT/OT evals, patient would like to return home with VN
[2024-02-24 11:22] VITALS: BP 93/50
[2024-02-24 11:38] LABS: NT-proBNP 361 pg/ml
--- NOTE | 2024-02-24 13:50 | PN.CDI ---
CDI
- -
CDI:
Physician Documentation Request
Admit Date: 02/22/24 15:08
Dear Doctor Genevieve/Resident ,
Please review the following and provide your response in the progress notes.
Clinical Indicators:
Height: 5 ft 1 in
Weight:98 lb
BMI:18.5
Other Clinical Notes:Pt with progressive COPD
If possible, please provide an associated diagnosis related to the abnormal BMI, such as:
BMI < or = to 19
Pulmonary Cachexia
Underweight
- Other
Use of terms such as suspected, likely, concern for, or probable (associated with a specific diagnosis that is being evaluated, monitored, or treated as if it exists) are acceptable and can be coded in the inpatient setting, when documented at the
time of discharge.
Thank you,
Randa Solis RN
CDI Specialist
[place] [facility]
Please use your independent medical judgment in providing your response.
[2024-02-24] MEDS: PLAQUENIL 300 MG PO (17:06)
[2024-02-24 19:32] LABS: Blood Urea Nitrogen 44 mg/dl (7-17); Calcium 8.3 mg/dl (8.4-10.2); Carbon Dioxide 21 mmol/L (22-30); Chloride 103 mmol/L (98-107); Estimated Creatinine Clearance 22 ml/min; Glucose 139 mg/dl (70-99); Potassium 4.3 mmol/L (3.5-5.1); Sodium 137 mmol/L (135-145); eGFR 35.67
[2024-02-24] MEDS: LIPITOR 10 MG PO (21:16)
[2024-02-24] MEDS: BENADRYL 50 MG PO (21:17)
[2024-02-24 23:35] VITALS: BP 119/49
[2024-02-25] MEDS: TYLENOL 650 MG PO ×4 (04:48→19:44)
[2024-02-25 06:26] LABS: Hematocrit 31.2 % (37.0-47.0); Hemoglobin 9.9 g/dL (12.0-16.0); Mean Corp Hgb Conc. 31.7 g/dL (33.0-37.0); Mean Corpuscular Volume 97.8 fL (81.0-99.0); Mean Platelet Volume 8.8 fL (7.4-10.4); Platelet Count 246 10^3/uL (130-400); Red Blood Cell Count 3.19 10^6/uL (4.20-5.40); Red Cell Dist. Width 19.7 % (11.5-14.5); White Blood Cell Count 10.2 10^3/uL (4.8-10.8)
[2024-02-25 06:50] LABS: Blood Urea Nitrogen 40 mg/dl (7-17); Calcium 8.1 mg/dl (8.4-10.2); Carbon Dioxide 21 mmol/L (22-30); Chloride 108 mmol/L (98-107); Estimated Creatinine Clearance 28 ml/min; Glucose 105 mg/dl (70-99); Potassium 4.4 mmol/L (3.5-5.1); Sodium 138 mmol/L (135-145); eGFR 46.62
[2024-02-25 07:00] VITALS: BP 106/62
--- NOTE | 2024-02-25 07:26 | W.PN.HOSP.TC ---
Today's Communication/Plan
-
.
Assessment / Plan
Assessment / Plan
# Acute right femoral neck fracture s/p right hip hemiarthroplasty 02/23 under the direction of Dr. Warren
-Weightbearing as tolerated to right lower extremity
-Pain control as needed
-ASA 325 mg daily x 4 weeks for DVT prophylaxis.
#Acute hypoxemic respiratory insufficiency likely secondary to COPD progression vs interstitial fibrosis vs bronchiectasis seen on CT chest
#Pulmonary Cachexia
-Pulm input appreciated.
-Chest CT 02/23- COPD with worsening predominantly interstitial fibrosis and bronchiectasis at the lung bases. Stable benign multiple bilateral pulmonary nodules.
-chest x-ray 02/21- Hyperinflation and interstitial coarsening increased indicative of worsening COPD or superimposed acute interstitial pneumonitis.
-Currently on 6L oxygen. Although, not on Home O2.
-Continue Trelegy Ellipta
-Will need kqyih-rto-eqcih oxygen.
-No evidence of Volume overload on physical examination. proBNP 361. Echo 02/23- LVEF is 60-65%. Mild concentric LVH.
# Hyperkalemia
-Resolved with Lokelma and IV fluids
#Hypoglycemia
-Resolved with IVF's with dextrose
# Essential hypertension
-Continue home Meds lisinopril/hydrochlorothiazide with holding parameters.
# Rheumatoid arthritis
-Continue hydroxychloroquine
#Hyperlipidemia
-Continue statins
# Depression/anxiety
-Continue escitalopram, vilazodone
CODE STATUS-full code
DVT prophylaxis-Aspirin 325MG
Anticipated Discharge: Within 24 hours
Subjective/Interval History
-
Date of Service: February 25, 2024
Objective Data
-
Labs:
Laboratory Results
02/24/24 02/25/24
19:02 04:59
WBC 10.2
Hgb 9.9 L
Hct 31.2 L
Plt Count 246
Sodium 137 138
Potassium 4.3 4.4
Chloride 103 108 H
Carbon Dioxide 21 L 21 L
BUN 44 H 40 H
Creatinine 1.5 H 1.2 H
Glucose 139 H 105 H
Calcium 8.3 L 8.1 L
Vital Signs:
Vital Signs
Temp Pulse Resp BP Pulse Ox
98.6 F 96 20 119/49 95
02/24/24 23:35 02/24/24 23:35 02/24/24 23:35 02/24/24 23:35 02/24/24 23:35
I&O
02/24/24 02/25/24 02/26/24
06:59 06:59 06:59
Intake Total 2420 / 2420 2820 / 2820
Output Total 450 / 450
Balance 1969 / 1969 2820 / 2820
Review of Systems
-
All other systems: Reviewed and negative (except as documented)
Physical Exam
-
General: No Apparent Distress
Respiratory: Rales; Negative Wheezes
Cardiac: Regular Rhythm and S1/S2
GI: Soft, Nontender and Nondistended
Musculoskeletal: No Edema and Other (rle with surgical dressing clean, dry and intact. No tenderness to palpation of hip)
Neuro: Awake, Alert, Oriented and AO x 3
Psych: Calm
--- NOTE | 2024-02-25 07:44 | W.PN.UPDATE ---
Update Note
Progress Note Update
Gerri is POD2 following her right hip hemiarthroplasty performed by Dr. Warren. She is resting comfortably in bed this morning, and denies any pain at present. She has no questions or concerns at this time.
Directed exam of the right lower extremity reveals surgical dressing clean, dry and intact. Mild tenderness to palpation about the lateral hip. Thigh soft and compressible Calf soft and nontender. Patient able to wiggle toes, plantar and dorsiflex
ankle. Neurovascularly intact distally.
Hgb 9.9 this AM
78-year-old female postop day 2 right hip hemiarthroplasty under the direction of Dr. Warren
--Weightbearing as tolerated to right lower extremity with assistive device. Total hip precautions for 6 to 8 weeks. We appreciate the assistance of PT/OT
-- Recommend ASA 325 mg daily x 4 weeks for DVT prophylaxis.
-- Hemoglobin 9.9 this morning. Continue to monitor. Patient did require 2 units PRBC preop.
-- Maintain surgical dressing until 7 to 10 days postop. Staple removal at 2 weeks postop. If removed at SNF, follow up 4 weeks post-op, otherwise follow up outpatient at 2 weeks post-op.
-- Pain control as needed. Ice and elevation as needed for pain and edema control.
-- Case management consult for discharge planning.
-- Patient is stably post-operatively from an orthopedic standpoint. Orthopedics will sign off for the time being. Please reach out with any additional orthopedic questions or concerns. `
[2024-02-25] MEDS: SPIRIVA RESPIMAT 2.5 MCG 2 PUFF INH (08:36)
[2024-02-25] MEDS: SYMBICORT 80/4.5 MCG INHALER 2 PUFF INH ×2 (08:36→19:39)
--- NOTE | 2024-02-25 08:58 | W.PN.UPDATE ---
Update Note
Progress Note Update
I saw and evaluated the patient. I reviewed the resident�s note and agree with findings and plan as documented in the resident�s note.
Gen: NAD, Awake and alert, appears chronically ill
Eyes: EOMI, PERRLA, no scleral icterus.
Neck: supple.
CV: remains RRR, +S1/S2, no m/r/g.
Resp: faint rales in the bases
Abd: +BS, soft, NT, ND
Skin: No rashes.
Neuro: CN 2-12 intact, non-focal.
Psych: Normal mood and affect.
CXR:
1. Hyperinflation and interstitial coarsening, increased compared to prior chest x-ray.
2. Differential diagnosis includes worsening COPD or superimposed acute interstitial pneumonitis.
3. No evidence of lobar pneumonia, pleural effusion, or pneumothorax.
CT Pelvis:
1. Minimally displaced, slightly impacted fracture of the right femoral neck.
2. No additional fractures are appreciated.
Echo: EF 60-65%, no RWMA, nl RV sz/fxn, mild TR PASP 44mmHg.
Acute right femoral neck fracture:
-s/p R hip hemiarthroplasty
-WBAT
-ASA 325 x 1 month
Acute hypoxemic respiratory failure:
-currently on 5-6L NC O2
-I suspect this is related to progression of the patient's COPD as well as interstitial fibrosis and bronchiectasis seen on CT chest. The patient will require oxygen ytubxe-ure-eienn.
-I suspect the patient's leukocytosis was reactive
-cont Trelegy
-pulm saw in c/s
-cont Symbicort/Spiriva
Hyperkalemia:
-resolved with Lokelma and IVFs
Hypoglycemia:
-resolved with IVFs with dextrose
Essential HTN:
-cont Lisinopril/HCTZ with holding parameters
RA:
-cont Plaquenil
FULL/Lovenox
[2024-02-25] MEDS: COLACE 100 MG PO ×2 (09:16→21:47)
[2024-02-25] MEDS: FIBERCON 625 MG PO (09:16)
[2024-02-25] MEDS: ASPIRIN 325 MG PO (09:17)
[2024-02-25] MEDS: LEXAPRO 20 MG PO (09:17)
[2024-02-25] MEDS: ZESTRIL 10 MG PO (09:17)
[2024-02-25] MEDS: ORETIC 12.5 MG PO (09:17)
[2024-02-25] MEDS: VISBIOME 1 CAP PO (09:17)
[2024-02-25] MEDS: SENOKOT 17.2 MG PO ×2 (09:17→21:47)
[2024-02-25] MEDS: NON-FORMULARY ITEM 1 GRAMS PO ×2 (09:18→21:47)
[2024-02-25] MEDS: NON-FORMULARY ITEM 40 MG PO (09:18)
[2024-02-25 09:54] VITALS: BP 129/62; BP 130/62; PULSE 100; O2SAT 91
[2024-02-25] MEDS: D5/0.9% SODIUM CHLORIDE IV (10:41)
--- NOTE | 2024-02-25 11:51 | W.PN.PUL3 ---
Today's Communication / Plan
-
Home O2 eval, check ABG as well, hypoxemia ongoing
CT results reviewed with patient, will need to follow as OP, compare to prior records at [facility]
Add on nebs, IS
ECHO stable, mild PH noted
Discharge planning to rehab eventually when O2 requirements are lower
Assessment
-
Patient is a 78-year-old female with history of COPD, rheumatoid arthritis on chronic, hypertension, pulm nodules presenting to ER status post mechanical fall. She had fallen directly on her right hip without other trauma. She was notably
having unsteadiness over the past few months with history of numerous falls. A CT was obtained indicating a minimally displaced fracture of the right femoral neck. She has a history of COPD, last seen in our office in 2020 but has since been
following with [facility]. Underwent right hip cemented bipolar endoprosthesis 02/23/2024 under spinal anesthesia. We are consulted for eval of SOB/hypoxemia.
Acute hypoxic respiratory insufficiency
Acute R hip fractures s/p cemented bipolar endoprosthesis 02/23/24
s/p mechanical fall
Hyperkalemia
Hypoglycemia
Acute on chronic SOB
Fibrosis noted on CT, new/progressed
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
Multiple lung nodules, measuring 3-5mm
Bronchoscopy results 06/12/20: No endobronchial lesions. BAL was performed in both lower lobes and right upper lobe/AFB neg
COPD
Followed by Dr Morrissey, last seen 2020
PFT - FEV1 was 1.26 L or 59% of predicted and previously was 1.50 L or 74% predicted
Cylindrical bronchiectasis RML and lingula
History of tobacco abuse/[id number] smoking history. Quit around 2009
History of pleural effusion
Interstitial lung disease
Rheumatoid arthritis w/ Immunosuppressed status
History of breast cancer s/p Left lumpectomy and axillary node dissection for stage I left breast carcinoma (1993, radiation/no chemo)
Plan
Hypoxemia noted on arrival, O2 regina 89% on RA
She has never required oxygen as an outpatient.
Of note, she has had increasing desaturation events at home over the past few months, reportedly 88 to 90% on room air.
Home O2 evaluation eventually will be needed
She also notes her SOB has been progressing as well over the past few months with no known triggers.
Obtain ABG as she still requires >5L
Prior history of lung disease is noted including COPD, bronchiectasis, pulmonary nodules
Reviewed records from our office in 2020, followed previously by Dr Morrissey
Had been following more recently at [facility]--will obtain records
She has history of pulmonary nodules on prior CT, underwent bronchoscopy 3 years ago without evidence of NTM.
Prior imaging reviewed, she thinks last CT in April at [facility]
CT reviewed, nodules are stable but she has new pulmonary fibrosis, progressed from prior
Reviewed this with patient
Other imaging reviewed--nodules/bronchiectasis noted, prior bronch in 2020 negative for NTM
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
Unclear if this was treated
I will repeat sputum culture now/she is productive of mucus--pending now
Never had ECHO eval, will place new order
Check proBNP-- neg
ECHO reviewed, stable function, mild PH noted
Ortho following, s/p R hip intervention
Following care team postop management
Likely NWB, rehab needed at discharge
Will need outpatient pulmonary evaluation in our office for PFTs and 6MWT
Reviewed with patient, she wants to transfer back from [facility]
Reviewed all diagnostic w/u and answered all questions
We will follow
Diagnostic Data
Chest X-Ray: 02/22/24-1. Hyperinflation and interstitial coarsening, increased compared to prior chest x-ray.
2. Differential diagnosis includes worsening COPD or superimposed acute interstitial pneumonitis.
3. No evidence of lobar pneumonia, pleural effusion, or pneumothorax.
CT Scan: CHEST 08/11/20- LUNGS: There is moderate biapical scarring as seen on the prior examination. [place] spiculated 1.1 cm opacity in the anterior left upper lobe consistent with scarring and unchanged from the prior exam (image #10 series 2).
There is a posterior right upper lobe 0.7 cm nodule which is larger as compared with 0.5 cm prior (image #15 series 2). Just below this, there is a posterolateral right upper lobe 0.9 cm nodule (image #17 series 2). There was only small focus of
irregular opacity at this level on the prior exam (image #16 prior). Anterior right upper lobe 0.5 cm nodule is minimally larger as compared with prior (image #18 series 2). At the same level, posterior upper lobe 3 mm nodule is more conspicuous as
compared with the prior study (also image #18). Central right upper lobe approximately 0.5 cm nodule is without significant change (image #16 series 2). At the same level, another approximately 0.5 cm nodule just posterior to this is larger as
compared with approximately 0.4 cm prior (image #16 series 2). Largest nodule previously measured at 0.7 cm on the prior study has not increased in size (image #22 series 2). Just superior to that nodule in the lower lobe, another approximately 0.6
cm nodule is also unchanged in size (image #21). In the left upper lobe, 0.3 cm nodule and 0.2 to 0.3 cm nodule were both present prior (image #14 series 2). Slightly inferior to this, 0.4 cm nodule shows no significant interval increase in size
(image #18 series 2). There is superior segment left lower lobe small benign calcified granuloma.
There is no new consolidation. There is no pneumothorax. Mild interstitial and some micronodular opacities at the lung bases similar to prior, at least some probably related to chronic bronchiolitis. These are without significant progression, with
interval slight decrease of the atelectatic changes in the right middle lobe.
Echo: 02/24/24- Normal LV size and function with no regional wall motion abnormalities. LVEF is 60-65% by Arias's method of this. Mild concentric LVH. Normal right ventricular size and function.
Mild tricuspid regurgitation. Estimated pulmonary artery pressure of 44 mmHg. Assuming a right atrial pressure of 3 mmHg. No prior study available for comparison.
PFT's: Spirometry-01/31/20: Spirometry demonstrated moderate obstructive lung disease. The forced vital capacity was 2.10 L or 74% of predicted. The FEV1 was 1.26 L or 59% of predicted. The FEV1/FVC ratio was 63%. There was no improvement in the
FEV1 postbronchodilator.
6MWT- On her 6 minute walk test 07/2018, her lowest saturation was 93%. She ambulated 150 feet less.
On her 6 minute walk test 05/24/20: Her saturation dropped from 95% to 90%. Resting heart rate was 98 and increased to 139. Her perceived dyspnea was 0 at baseline and increased to 2 on a 10 point scale. Her distance ambulated was 200 feet less than
it was in July 2018. In July 2018 her saturation regina was a bit higher at 93% and now 90%. Her maximum heart rate was 20 bpm higher.
Follow pulse oximetry with walking program at home.
Reports and relevant images were personally reviewed.
Total time spent on this encounter __51__ includes review of history, physical exam, medications, laboratory data, personal review of imaging, extensive review of outpatient records, discussion with care team and respiratory therapy.
Subjective Data
-
Date of Service:
Date of Service: February 25, 2024
Chief Complaint: Pulmonary Follow Up
Subjective:
no new events ON, remains on >5L O2
no new complaints
Objective Data
Data Reviewed
Vital Signs / I&O / Oxygen:
Vital Signs
Temp Pulse Resp BP Pulse Ox
98.2 F 104 18 106/62 90
02/25/24 07:00 02/25/24 08:54 02/25/24 08:54 02/25/24 07:00 02/25/24 08:54
Intake and Output
02/24/24 02/25/24 02/26/24
06:59 06:59 06:59
Intake Total 2420 / 2420 2820 / 2820
Output Total 450 / 450
Balance 1969
SaO2 90
Nasal Cannula flow liters per 4
minute
Physical Exam
General: Comfortable and Other (NAD)
HEENT: Normocephalic, Anicteric and Moist Mucous Membranes
Cardiovascular: S1-S2 and Regular Rhythm
Respiratory: Crackles and Non-Labored Respirations
GI: Soft, Non Distended and Non Tender
Neurology: Awake, Alert, Oriented, No Motor Deficits and Other (swan deformities of hands)
Skin: Warm, Dry and Good Color
Labs/Micro/Reports
Lab Data
02/25/24 04:59
02/25/24 04:59
Microbiology
02/24/24 15:12 Sputum Gram Stain - Preliminary
[2024-02-25] MEDS: ATIVAN 0.5 MG PO ×2 (13:52→21:50)
--- NOTE | 2024-02-25 14:43 | RESPNOTE ---
Pt found on 2L. Pts sat was 60%. Poor perfusion noted. OT bedside on arrival. Saturation reading taken from pts right ear and right toe, pulse ox readings consistent with 60%. Pt liter flow increased to 6L and IS reviewed and encouraged with pt. Pts
sat increased to 67%. Pt placed on 10L MF NC, pts sats increased to 92%. Dr. Correa contacted and notified of patients increased oxygen requirements. Pt liter flow weaned to 8L once stable, pts sat 95%. RN notified of changes.
[2024-02-25 14:55] LABS: B.E. -4.2 mmol/L; HCO3 22.1 mmol/L (21-28); O2 Saturation % 97.6 % (94-98); PCO2 45 mmHg (32-35); PO2 75 mmHg (83-108)
--- NOTE | 2024-02-25 15:00 | CM ---
Reviewed the chart notes and spoke with the patient at the bedside. Patient on O2 @ 8L/min. Referrals sent to [facility], [facility], and [facility]. [facility] answered 'yes based on bed availability', [facility] 'interested'.
[2024-02-25 16:09] VITALS: PULSE 91; O2SAT 95
[2024-02-25 16:20] VITALS: BP 113/64
[2024-02-25] MEDS: XOPENEX 0.63 MG INHALANT SOLUTION INH (19:39)
[2024-02-25] MEDS: PLAQUENIL 300 MG PO (19:43)
[2024-02-25] MEDS: TYLENOL PO (21:00)
[2024-02-25] MEDS: BENADRYL 50 MG PO (21:48)
[2024-02-25] MEDS: LIPITOR 10 MG PO (21:48)
[2024-02-25 23:41] VITALS: BP 120/57
[2024-02-26] VITALS (8 sets, daily range): BP systolic 120–173; BP diastolic 56–87; BMI 18.6
[2024-02-26] MEDS: TYLENOL PO ×3 (01:33→22:37)
[2024-02-26 06:10] LABS: Hematocrit 32.1 % (37.0-47.0); Hemoglobin 10.1 g/dL (12.0-16.0); Mean Corp Hgb Conc. 31.5 g/dL (33.0-37.0); Mean Corpuscular Hgb 32.1 pg (27.0-31.0); Mean Corpuscular Volume 101.9 fL (81.0-99.0); Mean Platelet Volume 8.6 fL (7.4-10.4); Platelet Count 225 10^3/uL (130-400); Red Blood Cell Count 3.15 10^6/uL (4.20-5.40); Red Cell Dist. Width 18.9 % (11.5-14.5)
[2024-02-26 06:34] LABS: Blood Urea Nitrogen 27 mg/dl (7-17); Calcium 8.6 mg/dl (8.4-10.2); Carbon Dioxide 24 mmol/L (22-30); Chloride 105 mmol/L (98-107); Estimated Creatinine Clearance 33 ml/min; Glucose 81 mg/dl (70-99); Potassium 4.7 mmol/L (3.5-5.1); Sodium 138 mmol/L (135-145); eGFR 58.02
--- NOTE | 2024-02-26 07:28 | W.PN.HOSP.TC ---
Today's Communication/Plan
-
cxr
repeat ABG
Assessment / Plan
Assessment / Plan
# Acute right femoral neck fracture s/p right hip hemiarthroplasty 02/23 under the direction of Dr. Warren
-Weightbearing as tolerated to right lower extremity
-Pain control as needed
-ASA 325 mg daily x 4 weeks for DVT prophylaxis.
#Acute hypoxemic respiratory insufficiency likely secondary to COPD progression vs interstitial fibrosis vs bronchiectasis seen on CT chest
#Pulmonary Cachexia
# Respiratory acidosis
-Pulm input appreciated.
-Chest CT 02/23- COPD with worsening predominantly interstitial fibrosis and bronchiectasis at the lung bases. Stable benign multiple bilateral pulmonary nodules.
-ABGs pH: 7.35, pCO2 44, HCO3 24.3
-Initiated on Levalbuterol.
-Continue Trelegy Ellipta
-Will need sophw-ecc-qbedu oxygen.
-No evidence of Volume overload on physical examination. proBNP 361. Echo 02/23- LVEF is 60-65%. Mild concentric LVH.
# Hyperkalemia
-Resolved with Lokelma and IV fluids
#Hypoglycemia
-Resolved with IVF's with dextrose
# Essential hypertension
-Continue home Meds lisinopril/hydrochlorothiazide with holding parameters.
# Rheumatoid arthritis
-Continue hydroxychloroquine
#Hyperlipidemia
-Continue statins
# Depression/anxiety
-Continue escitalopram, vilazodone
CODE STATUS-full code
DVT prophylaxis-Aspirin 325MG
Anticipated Discharge: > 48 hours
Subjective/Interval History
-
Patient seen and examined at bedside. Denies chest pain. Denies shortness of breath. requiring 11L midflow.
Objective Data
-
Labs:
Laboratory Results
02/26/24
04:54
WBC 11.0 H
Hgb 10.1 L
Hct 32.1 L
Plt Count 225
Sodium 138
Potassium 4.7
Chloride 105
Carbon Dioxide 24
BUN 27 H
Creatinine 1.0
Glucose 81
Calcium 8.6
Vital Signs:
Vital Signs
Temp Pulse Resp BP Pulse Ox
98.2 F 99 16 120/57 95
02/25/24 23:41 02/25/24 23:41 02/25/24 23:41 02/25/24 23:41 02/25/24 23:41
I&O
02/25/24 02/26/24 02/27/24
06:59 06:59 06:59
Intake Total 2820 / 2820 560 / 560
Balance 2820 / 2820 560 / 560
Review of Systems
-
All other systems: Reviewed and negative (Except as documented)
Physical Exam
-
General: No Apparent Distress
Respiratory: Rales (Mild bilaterally)
Cardiac: Regular Rhythm and S1/S2
GI: Soft, Nontender and Nondistended
Neuro: AO x 3
Psych: Calm
--- NOTE | 2024-02-26 08:15 | RESPNOTE ---
Pt pulse ox was alarming. When arrived pt was being transitioned to the bed to the commode by PCT. Pt's sat was 87% on 8L, pursed lip breathing and using accessory muscles noted. Pt declined SOB. Pt MF NC increased to 11L, pt's sats improved to 90%.
HR 104 RR 20
--- NOTE | 2024-02-26 08:27 | W.PN.UPDATE ---
Update Note
Progress Note Update
I saw and evaluated the patient. I reviewed the resident�s note and agree with findings and plan as documented in the resident�s note.
This AM pt was requiring 11L midflow. Currently denies SOB.
Gen: NAD, AAOx3, appears chronically ill
Eyes: EOMI, PERRLA, no scleral icterus.
Neck: supple.
CV: continues to remain RRR, +S1/S2, no m/r/g.
Resp: remains faint rales in the bases
Abd: +BS, soft, NT, ND
Skin: No rashes.
Neuro: CN 2-12 intact, non-focal.
Psych: Normal mood and affect.
CXR 02/22/24:
1. Hyperinflation and interstitial coarsening, increased compared to prior chest x-ray.
2. Differential diagnosis includes worsening COPD or superimposed acute interstitial pneumonitis.
3. No evidence of lobar pneumonia, pleural effusion, or pneumothorax.
CT Pelvis:
1. Minimally displaced, slightly impacted fracture of the right femoral neck.
2. No additional fractures are appreciated.
Echo: EF 60-65%, no RWMA, nl RV sz/fxn, mild TR PASP 44mmHg.
Acute right femoral neck fracture:
-s/p R hip hemiarthroplasty
-WBAT
-ASA 325 x 1 month
Acute hypoxemic respiratory failure:
-currently on 11L midflow O2, worsening
-CXR 02/26/24: There has been worsening of bilateral diffuse interstitial airspace disease in the interval since the prior studies suggesting interstitial pneumonia/bronchiolitis superimposed upon underlying interstitial fibrosis
-ABG 7.35/44/85
-I suspect this is related to progression of the patient's COPD as well as interstitial fibrosis and bronchiectasis seen on CT chest. The patient will require oxygen [id number].
-I suspect the patient's leukocytosis is reactive
-cont Trelegy
-pulm following, will d/w pulm
-cont Symbicort/Spiriva
Hyperkalemia and WILFRIDO:
-resolved with Lokelma and IVFs
Hypoglycemia:
-resolved with IVFs with dextrose
Essential HTN:
-cont Lisinopril/HCTZ with holding parameters
RA:
-cont Plaquenil
FULL/Lovenox
Transfer to IMU due to O2 requirements.
[2024-02-26] MEDS: XOPENEX 0.63 MG INHALANT SOLUTION INH ×3 (08:30→19:49)
[2024-02-26] MEDS: SPIRIVA RESPIMAT 2.5 MCG 2 PUFF INH (08:30)
[2024-02-26] MEDS: SYMBICORT 80/4.5 MCG INHALER 2 PUFF INH (08:30)
--- NOTE | 2024-02-26 08:30 | PTCARENOTE ---
I was asked to come to assess the patient by my tech due to mild confusion and decreased O2 saturation. Pt is AAOx2, confused with time, on 11L midflow satting 95%. Discussed with respiratory who states she was put on 11L NC after saturation were in
the 80s. Dr. Gonzalez notified and asked to come assess the patient. Chest x-ray, ABG, and transfer to IMU ordered. Care ongoing.
[2024-02-26] MEDS: NON-FORMULARY ITEM 40 MG PO (08:48)
[2024-02-26] MEDS: NON-FORMULARY ITEM 1000 GRAMS PO ×2 (08:48→22:32)
[2024-02-26] MEDS: FIBERCON 625 MG PO (08:49)
[2024-02-26] MEDS: SENOKOT 17.2 MG PO (08:49)
[2024-02-26] MEDS: ORETIC 12.5 MG PO (08:49)
[2024-02-26] MEDS: ASPIRIN 325 MG PO (08:49)
[2024-02-26] MEDS: ZESTRIL 10 MG PO (08:49)
[2024-02-26] MEDS: COLACE 100 MG PO (08:50)
[2024-02-26] MEDS: TYLENOL 650 MG PO ×3 (08:50→18:24)
[2024-02-26] MEDS: LEXAPRO 20 MG PO (08:50)
[2024-02-26] MEDS: VISBIOME 1 CAP PO (08:50)
[2024-02-26 09:16] LABS: B.E. -1.4 mmol/L; HCO3 24.3 mmol/L (21-28); O2 Saturation % 99.1 % (94-98); PCO2 44 mmHg (32-35); PO2 85 mmHg (83-108); pH 7.35 (7.35-7.45)
--- NOTE | 2024-02-26 09:53 | W.PN.PUL3 ---
Today's Communication / Plan
-
Hypoxemia ongoing, she is transferred to IMU for ongoing high requirements
Encouraged IS, doing <500mL, limited due to fracture with PT/OT
IV steroids
Check d-dimer, sputum culture pending
Continue inhalers
Speech eval
Assessment
-
Patient is a 78-year-old female with history of COPD, rheumatoid arthritis on chronic, hypertension, pulm nodules presenting to ER status post mechanical fall. She had fallen directly on her right hip without other trauma. She was notably
having unsteadiness over the past few months with history of numerous falls. A CT was obtained indicating a minimally displaced fracture of the right femoral neck. She has a history of COPD, last seen in our office in 2020 but has since been
following with [facility]. Underwent right hip cemented bipolar endoprosthesis 02/23/2024 under spinal anesthesia. We are consulted for eval of SOB/hypoxemia.
Acute hypoxic respiratory insufficiency
Acute R hip fractures s/p cemented bipolar endoprosthesis 02/23/24
s/p mechanical fall
Hyperkalemia
Hypoglycemia
Acute on chronic SOB
Fibrosis noted on CT, new/progressed
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
Multiple lung nodules, measuring 3-5mm
Bronchoscopy results 06/12/20: No endobronchial lesions. BAL was performed in both lower lobes and right upper lobe/AFB neg
COPD
Followed by Dr Morrissey, last seen 2020
PFT - FEV1 was 1.26 L or 59% of predicted and previously was 1.50 L or 74% predicted
Cylindrical bronchiectasis RML and lingula
History of tobacco abuse/[id number] smoking history. Quit around 2009
History of pleural effusion
Interstitial lung disease
Rheumatoid arthritis w/ Immunosuppressed status
History of breast cancer s/p Left lumpectomy and axillary node dissection for stage I left breast carcinoma (1993, radiation/no chemo)
Plan
Hypoxemia noted on arrival, O2 regina 89% on RA
She has never required oxygen as an outpatient.
Of note, she has had increasing desaturation events at home over the past few months, reportedly 88 to 90% on room air.
Home O2 evaluation eventually will be needed
She also notes her SOB has been progressing as well over the past few months with no known triggers.
Obtain ABG as she still requires >5L
paO2 adequate >70
There is likely significant VQ mismatch with bibasilar atelectasis, IS is <500 on attempts
Encouraged her to try to raise her IS to >1L
Prior history of lung disease is noted including COPD, bronchiectasis, pulmonary nodules
Reviewed records from our office in 2020, followed previously by Dr Mrorissey
Had been following more recently at [facility]--will obtain records
She has history of pulmonary nodules on prior CT, underwent bronchoscopy 3 years ago without evidence of NTM.
Prior imaging reviewed, she thinks last CT in April at [place]
CT reviewed, nodules are stable but she has new pulmonary fibrosis, progressed from prior
Reviewed this with patient
IV steroids
Check d-dimer
Other imaging reviewed--nodules/bronchiectasis noted, prior bronch in 2020 negative for NTM
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
Unclear if this was treated
I will repeat sputum culture now/she is productive of mucus--pending now
Never had ECHO eval, will place new order
Check proBNP-- neg
ECHO reviewed, stable function, mild PH noted
Ortho following, s/p R hip intervention
Following care team postop management
Likely NWB, rehab needed at discharge
Will need outpatient pulmonary evaluation in our office for PFTs and 6MWT
Reviewed with patient, she wants to transfer back from [place]
Reviewed all diagnostic w/u and answered all questions
We will follow
Diagnostic Data
Chest X-Ray: 02/22/24-1. Hyperinflation and interstitial coarsening, increased compared to prior chest x-ray.
2. Differential diagnosis includes worsening COPD or superimposed acute interstitial pneumonitis.
3. No evidence of lobar pneumonia, pleural effusion, or pneumothorax.
CT Scan: CHEST 08/11/20- LUNGS: There is moderate biapical scarring as seen on the prior examination. [place] spiculated 1.1 cm opacity in the anterior left upper lobe consistent with scarring and unchanged from the prior exam (image #10 series 2).
There is a posterior right upper lobe 0.7 cm nodule which is larger as compared with 0.5 cm prior (image #15 series 2). Just below this, there is a posterolateral right upper lobe 0.9 cm nodule (image #17 series 2). There was only small focus of
irregular opacity at this level on the prior exam (image #16 prior). Anterior right upper lobe 0.5 cm nodule is minimally larger as compared with prior (image #18 series 2). At the same level, posterior upper lobe 3 mm nodule is more conspicuous as
compared with the prior study (also image #18). Central right upper lobe approximately 0.5 cm nodule is without significant change (image #16 series 2). At the same level, another approximately 0.5 cm nodule just posterior to this is larger as
compared with approximately 0.4 cm prior (image #16 series 2). Largest nodule previously measured at 0.7 cm on the prior study has not increased in size (image #22 series 2). Just superior to that nodule in the lower lobe, another approximately 0.6
cm nodule is also unchanged in size (image #21). In the left upper lobe, 0.3 cm nodule and 0.2 to 0.3 cm nodule were both present prior (image #14 series 2). Slightly inferior to this, 0.4 cm nodule shows no significant interval increase in size
(image #18 series 2). There is superior segment left lower lobe small benign calcified granuloma.
There is no new consolidation. There is no pneumothorax. Mild interstitial and some micronodular opacities at the lung bases similar to prior, at least some probably related to chronic bronchiolitis. These are without significant progression, with
interval slight decrease of the atelectatic changes in the right middle lobe.
Echo: 02/24/24- Normal LV size and function with no regional wall motion abnormalities. LVEF is 60-65% by Arias's method of this. Mild concentric LVH. Normal right ventricular size and function.
Mild tricuspid regurgitation. Estimated pulmonary artery pressure of 44 mmHg. Assuming a right atrial pressure of 3 mmHg. No prior study available for comparison.
PFT's: Spirometry-01/31/20: Spirometry demonstrated moderate obstructive lung disease. The forced vital capacity was 2.10 L or 74% of predicted. The FEV1 was 1.26 L or 59% of predicted. The FEV1/FVC ratio was 63%. There was no improvement in the
FEV1 postbronchodilator.
6MWT- On her 6 minute walk test 07/2018, her lowest saturation was 93%. She ambulated 150 feet less.
On her 6 minute walk test 05/24/20: Her saturation dropped from 95% to 90%. Resting heart rate was 98 and increased to 139. Her perceived dyspnea was 0 at baseline and increased to 2 on a 10 point scale. Her distance ambulated was 200 feet less than
it was in July 2018. In July 2018 her saturation regina was a bit higher at 93% and now 90%. Her maximum heart rate was 20 bpm higher.
Follow pulse oximetry with walking program at home.
Reports and relevant images were personally reviewed.
Total time spent on this encounter __61__ includes review of history, physical exam, medications, laboratory data, personal review of imaging, extensive review of outpatient records, discussion with care team and respiratory therapy.
Subjective Data
-
Date of Service:
Date of Service: February 26, 2024
Chief Complaint: Pulmonary Follow Up
Subjective:
Confusion noted this AM, hypoxemia ongoing
Had been on 2L with sats in 60s for period of time
This has now been increased to 8+ since
Objective Data
Data Reviewed
Vital Signs / I&O / Oxygen:
Vital Signs
Temp Pulse Resp BP Pulse Ox
98.0 F 104 20 173/87 95
02/26/24 07:55 02/26/24 09:00 02/26/24 09:00 02/26/24 08:49 02/26/24 09:00
Intake and Output
02/25/24 02/26/24 02/27/24
06:59 06:59 06:59
Intake Total 2820 / 2820 560 / 560
Balance 2820 / 2820 560 / 560
SaO2 95
Nasal Cannula flow liters per 11
minute
Physical Exam
General: Comfortable and Other (NAD)
HEENT: Normocephalic, Anicteric and Moist Mucous Membranes
Cardiovascular: S1-S2 and Regular Rhythm
Respiratory: Crackles and Non-Labored Respirations
GI: Soft, Non Distended and Non Tender
Neurology: Awake, Alert, Oriented, No Motor Deficits and Other (swan deformities of hands)
Skin: Warm, Dry and Good Color
Labs/Micro/Reports
Lab Data
02/26/24 04:54
02/26/24 04:54
Laboratory Results
02/25/24 02/26/24
14:39 09:00
pH 7.30 L 7.35
pCO2 45 H 44 H
pO2 75 L 85
HCO3 22.1 24.3
O2 Delivery Level
Microbiology
02/24/24 15:12 Sputum Respiratory Culture - Preliminary
02/24/24 15:12 Sputum Gram Stain - Preliminary
[2024-02-26 10:55] LABS: D-Dimer 3.87 ug/mlFEU (0.00-0.50)
--- NOTE | 2024-02-26 11:12 | PTCARENOTE ---
Patient being transferred to the IMU. Report given to CEDRIC Good.
--- NOTE | 2024-02-26 11:38 | W.PN.UPDATE ---
Update Note
Progress Note Update
Case discussed with Dr. Castillo and she recommended Decadron, order placed.
--- NOTE | 2024-02-26 12:00 | PTOTSP ---
Speech Language Pathology
Pt seen for clinical bedside swallow evaluation. She denied any hx of dysphagia or any current difficulty swallowing. P.O. trials of puree, regular solids, and thin liquids provided. Adequate mastication, bolus formation, and A-P transit noted
with no oral residue. No overt signs of aspiration. If respiratory does not improve, can consider VSE to rule out silent aspiration.
Recommend:
(1) Regular solids/thin liquids
(2) General aspiration precautions
(3) Meds as tolerated
(4) TURNAROUND ENGINEER to follow briefly
[2024-02-26] MEDS: ATIVAN 0.5 MG PO (12:16)
--- NOTE | 2024-02-26 12:50 | CM ---
Reviewed the chart notes. Patient requiring 11L midflow. Patient transferred to IMU. CM continues to be available to patient/family and is monitoring medical plan for needs at discharge.
Plan: Discharge to SNF/rehab when medically stable. Precert will be required.
--- NOTE | 2024-02-26 13:30 | PTCARENOTE ---
Patient transferred to IMU from [address] [place] [address] in bed. Patient AAO x3 slightly forgetful. [place] with hearing aides in place. Sp02 89%-93% on 8L midflow oxygen. Patient denies SOB but with exertion she gets SOB. Right hip dressing intact. Thigh high
teds and foot pumps on. Family in room at bedside. Oriented patient to room.
[2024-02-26] MEDS: DECADRON 4 MG IV ×2 (15:02→20:13)
[2024-02-26] MEDS: FLUSH (NSS) 1 FLUSH IV (15:03)
[2024-02-26] MEDS: PLAQUENIL 300 MG PO (18:25)
[2024-02-26] MEDS: SYMBICORT 80/4.5 MCG INHALER INH (19:49)
--- NOTE | 2024-02-26 20:35 | PTCARENOTE ---
Addendum entered by Mono Rodriugez RN 02/26/24 22:41:
Pt found sitting at EOB attempting to get up. Educated pt on the importance of calling for assistance and fall precautions. Assisted pt to BSC and back to bed. RN attempted to give HS meds, pt only took one and stated 'no more'. Call whiteside & tray
table left within reach and bed alarm set. RN sitting outside closest nursing station.
Original Note:
Patient drowsy, wakes up to verbal stimuli but falling back asleep. Pt confused to time but able to state where she is. Pt refusing HS meds; when asked why she does not want her meds, pt states 'because I am sleeping'. Education provided will
attempt at a later time. refused oral care. Pt breathing via mouth, Sp02 87%. Increased midflow to 10L. sinus tach HR 105. denies any pain. Turned self on left side. call whiteside within reach. bed alarm set for safety.
[2024-02-26] MEDS: LIPITOR PO (22:37)
[2024-02-26] MEDS: SENOKOT PO (22:38)
[2024-02-26] MEDS: COLACE PO (22:38)
[2024-02-27] VITALS (17 sets, daily range): BP systolic 124–163; BP diastolic 54–84; PULSE 94–112; O2SAT 93–94; BMI 19.8
[2024-02-27] MEDS: TYLENOL PO ×4 (01:44→23:50)
[2024-02-27 05:12] LABS: Hematocrit 30.6 % (37.0-47.0); Hemoglobin 9.8 g/dL (12.0-16.0); Mean Corpuscular Hgb 31.2 pg (27.0-31.0); Mean Corpuscular Volume 97.5 fL (81.0-99.0); Mean Platelet Volume 8.4 fL (7.4-10.4); Platelet Count 230 10^3/uL (130-400); Red Blood Cell Count 3.14 10^6/uL (4.20-5.40); Red Cell Dist. Width 18.3 % (11.5-14.5); White Blood Cell Count 9.1 10^3/uL (4.8-10.8)
[2024-02-27 05:34] LABS: Blood Urea Nitrogen 27 mg/dl (7-17); Calcium 8.9 mg/dl (8.4-10.2); Carbon Dioxide 25 mmol/L (22-30); Chloride 103 mmol/L (98-107); Estimated Creatinine Clearance 39 ml/min; Glucose 96 mg/dl (70-99); Potassium 5.3 mmol/L (3.5-5.1); Sodium 138 mmol/L (135-145); eGFR > 60.00
[2024-02-27] MEDS: SYMBICORT 80/4.5 MCG INHALER 2 PUFF INH ×2 (07:39→19:14)
[2024-02-27] MEDS: SPIRIVA RESPIMAT 2.5 MCG 2 PUFF INH (07:39)
[2024-02-27] MEDS: XOPENEX 0.63 MG INHALANT SOLUTION INH ×3 (07:40→19:14)
--- NOTE | 2024-02-27 08:00 | PTOTSP ---
Pt transferred to IMU overnight from [address] [place] [address] and therapy orders were not continued upon transfer. Will need new orders for PT and OT when stable to resume activity.
[2024-02-27] MEDS: DECADRON 4 MG IV ×2 (08:36→20:14)
[2024-02-27] MEDS: ZESTRIL 10 MG PO (08:36)
[2024-02-27] MEDS: VISBIOME 1 CAP PO (08:36)
[2024-02-27] MEDS: LEXAPRO 20 MG PO (08:36)
[2024-02-27] MEDS: TYLENOL 650 MG PO ×3 (08:36→20:09)
[2024-02-27] MEDS: ASPIRIN 325 MG PO (08:36)
[2024-02-27] MEDS: COLACE 100 MG PO ×2 (08:36→20:09)
[2024-02-27] MEDS: FIBERCON 625 MG PO (08:36)
[2024-02-27] MEDS: ORETIC 12.5 MG PO (08:36)
[2024-02-27] MEDS: SENOKOT 17.2 MG PO ×2 (08:37→20:09)
[2024-02-27] MEDS: NON-FORMULARY ITEM 1000 GRAMS PO ×2 (08:37→20:07)
--- NOTE | 2024-02-27 08:51 | W.PN.HOSP.TC ---
Addendum entered and electronically signed by Talita Yoon MD 02/27/24 13:45:
I saw and evaluated the patient independently. I reviewed the resident�s note and agree with findings and plan as documented by Dr. Gonzalez.
GENERAL: elderly female in no apparent distress
HEENT: 6L O2 NC in place--NC/AT
HEART: regular rate and rhythm, +S1, +S2
LUNGS : clear to auscultation bilaterally--decreased breath sounds
ABDOM: soft, nontender, nondistended, + bowel sounds
EXT: no cyanosis, clubbing, or edema
NEUROLOGIC: grossly intact
Acute right femoral neck fracture--cause of admission--apprec ortho--s/p right [place]--WBAT--will need SNF--ASA 325mg daily for DVT proph by ortho
Acute hypoxemic respiratory failure--keeping her in hospital--was up to 11 L which necessitated transfer to IMU--apprec pulm--likely multifactorial due to interstitial pneumonia/bronchiolitis superimposed upon underlying interstitial fibrosis with
COPD exacerbation--doubt PE as hypoxia 'predates' her admission here for hip fracture--at home pulse ox 80-85%--follow up with pulm as outpt--cont Trelegy/Symbicort/Spiriva--now on steroids--cont incentive spirometry
Hyperkalemia and WILFRIDO--resolved with Lokelma and IVFs
Hypoglycemia--resolved with IVFs with dextrose
Essential HTN---cont Lisinopril/HCTZ with holding parameters
RA---cont Plaquenil
code status --FULL
DVT proph -- Lovenox
anticipate d/c to SNF when O2 requirements down to 4L
Original Note:
Today's Communication/Plan
-
.
Assessment / Plan
Assessment / Plan
# Acute right femoral neck fracture s/p right hip hemiarthroplasty 02/23 under the direction of Dr. Warren
-Weightbearing as tolerated to right lower extremity
-Pain control as needed
-ASA 325 mg daily x 4 weeks for DVT prophylaxis.
#Acute hypoxemic respiratory insufficiency likely secondary to COPD progression vs interstitial fibrosis vs bronchiectasis seen on CT chest
#Pulmonary Cachexia
# Respiratory acidosis
-Pulm input appreciated.
-Chest CT 02/23- COPD with worsening predominantly interstitial fibrosis and bronchiectasis at the lung bases. Stable benign multiple bilateral pulmonary nodules.
-ABGs pH 02/25: 7.35, pCO2 44, HCO3 24.3
-Continue on Levalbuterol.
-Continue Trelegy Ellipta
-Initiated on Decadron.
-Will need [id number] oxygen.
-Currently on 6L. Wean o2 as tolerated. Goal of 4L.
-No evidence of Volume overload on physical examination. proBNP 361. Echo 02/23- LVEF is 60-65%. Mild concentric LVH.
# Hyperkalemia
-Lokelma
#Hypoglycemia
-Resolved with IVF's with dextrose
# Essential hypertension
-Continue home Meds lisinopril/hydrochlorothiazide with holding parameters.
# Rheumatoid arthritis
-Continue hydroxychloroquine
#Hyperlipidemia
-Continue statins
# Depression/anxiety
-Continue escitalopram, vilazodone
CODE STATUS-full code
DVT prophylaxis-Aspirin 325MG
Anticipated Discharge: > 48 hours
Subjective/Interval History
-
Patient seen and examined at bedside. Patient withOUT acute complaint. Denies SOB. AAOX3
Objective Data
-
Labs:
Laboratory Results
02/27/24
04:57
WBC 9.1
Hgb 9.8 L
Hct 30.6 L
Plt Count 230
Sodium 138
Potassium 5.3 H
Chloride 103
Carbon Dioxide 25
BUN 27 H
Creatinine 0.9
Glucose 96
Calcium 8.9
Vital Signs:
Vital Signs
Temp Pulse Resp BP Pulse Ox
97.9 F 94 24 161/69 100
02/27/24 07:18 02/27/24 08:36 02/27/24 07:42 02/27/24 08:36 02/27/24 07:46
I&O
02/26/24 02/27/24 02/28/24
06:59 06:59 06:59
Intake Total 560 / 560 540 / 540
Output Total 50 / 50
Balance 560 / 560 540 / 540 -50 / -50
Review of Systems
-
All other systems: Reviewed and negative (except as documented)
Physical Exam
-
General: No Apparent Distress
Respiratory: Clear to Auscultation
Cardiac: Regular Rhythm and S1/S2
GI: Soft, Nontender and Nondistended
Musculoskeletal: No Edema
Neuro: AO x 3
Psych: Calm
--- NOTE | 2024-02-27 08:51 | W.PN.PUL3 ---
Today's Communication / Plan
-
Remains on 6L NC, wean as tolerated
Continue IS efforts
Steroids IV, can likely taper
PT/OT ongoing
proBNP neg
Assessment
-
Patient is a 78-year-old female with history of COPD, rheumatoid arthritis on chronic, hypertension, pulm nodules presenting to ER status post mechanical fall. She had fallen directly on her right hip without other trauma. She was notably
having unsteadiness over the past few months with history of numerous falls. A CT was obtained indicating a minimally displaced fracture of the right femoral neck. She has a history of COPD, last seen in our office in 2020 but has since been
following with [facility]. Underwent right hip cemented bipolar endoprosthesis 02/23/2024 under spinal anesthesia. We are consulted for eval of SOB/hypoxemia.
Acute hypoxic respiratory insufficiency
Acute R hip fractures s/p cemented bipolar endoprosthesis 02/23/24
s/p mechanical fall
Hyperkalemia
Hypoglycemia
Acute on chronic SOB
Fibrosis noted on CT, new/progressed
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
Multiple lung nodules, measuring 3-5mm
Bronchoscopy results 06/12/20: No endobronchial lesions. BAL was performed in both lower lobes and right upper lobe/AFB neg
COPD
Followed by Dr Morrissey, last seen 2020
PFT - FEV1 was 1.26 L or 59% of predicted and previously was 1.50 L or 74% predicted
Cylindrical bronchiectasis RML and lingula
History of tobacco abuse/[id number] smoking history. Quit around 2009
History of pleural effusion
Interstitial lung disease
Rheumatoid arthritis w/ Immunosuppressed status
History of breast cancer s/p Left lumpectomy and axillary node dissection for stage I left breast carcinoma (1993, radiation/no chemo)
Plan
Hypoxemia noted on arrival, O2 regina 89% on RA
She has never required oxygen as an outpatient.
Of note, she has had increasing desaturation events at home over the past few months, reportedly 88 to 90% on room air.
Home O2 evaluation eventually will be needed
She also notes her SOB has been progressing as well over the past few months with no known triggers.
ABG reviewed-paO2 adequate >70
There is likely significant VQ mismatch with bibasilar atelectasis, IS is <500 on attempts
Encouraged her to try to raise her IS to >1L
Currently 94% on 6L, continue to wean as tolerated
Prior history of lung disease is noted including COPD, bronchiectasis, pulmonary nodules
Reviewed records from our office in 2020, followed previously by Dr Morrissey
Had been following more recently at [facility]--will obtain records
She has history of pulmonary nodules on prior CT, underwent bronchoscopy 3 years ago without evidence of NTM.
Prior imaging reviewed, she thinks last CT in April at [facility]
CT reviewed, nodules are stable but she has new pulmonary fibrosis, progressed from prior
Reviewed this with patient
IV steroids
Check d-dimer--age appropriate elevation
Other imaging reviewed--nodules/bronchiectasis noted, prior bronch in 2020 negative for NTM
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
Unclear if this was treated
Repeat sputum 02/24/24 negative
Check proBNP-- neg
ECHO reviewed, stable function, mild PH noted
Ortho following, s/p R hip intervention
Following care team postop management
Likely NWB, rehab needed at discharge
Will need outpatient pulmonary evaluation in our office for PFTs and 6MWT
Reviewed with patient, she wants to transfer back from [facility]
Reviewed all diagnostic w/u and answered all questions
Diagnostic Data
Chest X-Ray: 02/22/24-1. Hyperinflation and interstitial coarsening, increased compared to prior chest x-ray.
2. Differential diagnosis includes worsening COPD or superimposed acute interstitial pneumonitis.
3. No evidence of lobar pneumonia, pleural effusion, or pneumothorax.
CT Scan: CHEST 08/11/20- LUNGS: There is moderate biapical scarring as seen on the prior examination. [place] spiculated 1.1 cm opacity in the anterior left upper lobe consistent with scarring and unchanged from the prior exam (image #10 series 2).
There is a posterior right upper lobe 0.7 cm nodule which is larger as compared with 0.5 cm prior (image #15 series 2). Just below this, there is a posterolateral right upper lobe 0.9 cm nodule (image #17 series 2). There was only small focus of
irregular opacity at this level on the prior exam (image #16 prior). Anterior right upper lobe 0.5 cm nodule is minimally larger as compared with prior (image #18 series 2). At the same level, posterior upper lobe 3 mm nodule is more conspicuous as
compared with the prior study (also image #18). Central right upper lobe approximately 0.5 cm nodule is without significant change (image #16 series 2). At the same level, another approximately 0.5 cm nodule just posterior to this is larger as
compared with approximately 0.4 cm prior (image #16 series 2). Largest nodule previously measured at 0.7 cm on the prior study has not increased in size (image #22 series 2). Just superior to that nodule in the lower lobe, another approximately 0.6
cm nodule is also unchanged in size (image #21). In the left upper lobe, 0.3 cm nodule and 0.2 to 0.3 cm nodule were both present prior (image #14 series 2). Slightly inferior to this, 0.4 cm nodule shows no significant interval increase in size
(image #18 series 2). There is superior segment left lower lobe small benign calcified granuloma.
There is no new consolidation. There is no pneumothorax. Mild interstitial and some micronodular opacities at the lung bases similar to prior, at least some probably related to chronic bronchiolitis. These are without significant progression, with
interval slight decrease of the atelectatic changes in the right middle lobe.
Echo: 02/24/24- Normal LV size and function with no regional wall motion abnormalities. LVEF is 60-65% by Arias's method of this. Mild concentric LVH. Normal right ventricular size and function.
Mild tricuspid regurgitation. Estimated pulmonary artery pressure of 44 mmHg. Assuming a right atrial pressure of 3 mmHg. No prior study available for comparison.
PFT's: Spirometry-01/31/20: Spirometry demonstrated moderate obstructive lung disease. The forced vital capacity was 2.10 L or 74% of predicted. The FEV1 was 1.26 L or 59% of predicted. The FEV1/FVC ratio was 63%. There was no improvement in the
FEV1 postbronchodilator.
6MWT- On her 6 minute walk test 07/2018, her lowest saturation was 93%. She ambulated 150 feet less.
On her 6 minute walk test 05/24/20: Her saturation dropped from 95% to 90%. Resting heart rate was 98 and increased to 139. Her perceived dyspnea was 0 at baseline and increased to 2 on a 10 point scale. Her distance ambulated was 200 feet less than
it was in July 2018. In July 2018 her saturation regina was a bit higher at 93% and now 90%. Her maximum heart rate was 20 bpm higher.
Follow pulse oximetry with walking program at home.
Reports and relevant images were personally reviewed.
Total time spent on this encounter __51__ includes review of history, physical exam, medications, laboratory data, personal review of imaging, extensive review of outpatient records, discussion with care team and respiratory therapy.
Subjective Data
-
Date of Service:
Date of Service: February 27, 2024
Chief Complaint: Pulmonary Follow Up
Subjective:
No new events ON, remains on 6L NC
No new complaints
Poor IS effort
Objective Data
Data Reviewed
Vital Signs / I&O / Oxygen:
Vital Signs
Temp Pulse Resp BP Pulse Ox
97.9 F 94 24 161/69 100
02/27/24 07:18 02/27/24 08:36 02/27/24 07:42 02/27/24 08:36 02/27/24 07:46
Intake and Output
02/26/24 02/27/24 02/28/24
06:59 06:59 06:59
Intake Total 560 / 560 540 / 540
Output Total 50 / 50
Balance 560 / 560 540 / 540 -50 / -50
SaO2 100
Nasal Cannula flow liters per 10
minute
Physical Exam
General: Comfortable and Other (NAD)
HEENT: Normocephalic, Anicteric and Moist Mucous Membranes
Cardiovascular: S1-S2 and Regular Rhythm
Respiratory: Crackles and Non-Labored Respirations
GI: Soft, Non Distended and Non Tender
Neurology: Awake, Alert, Oriented, No Motor Deficits and Other (swan deformities of hands)
Skin: Warm, Dry and Good Color
Labs/Micro/Reports
Lab Data
02/27/24 04:57
02/27/24 04:57
Laboratory Results
02/26/24
09:00
pH 7.35
pCO2 44 H
pO2 85
HCO3 24.3
O2 Delivery Level
Microbiology
02/24/24 15:12 Sputum Respiratory Culture - Final
Usual Respiratory Juliann
02/24/24 15:12 Sputum Gram Stain - Final
[2024-02-27] MEDS: NON-FORMULARY ITEM 40 MG PO (09:00)
[2024-02-27] MEDS: LOKELMA 5 GRAM PO (09:59)
[2024-02-27] MEDS: NICODERM TRANSDERMAL 7 MG TRANSDERM (10:00)
[2024-02-27] MEDS: ATIVAN 0.5 MG PO ×2 (13:35→20:09)
--- NOTE | 2024-02-27 16:49 | CM ---
Patient with Dx Acute right femoral neck fracture s/p right [place], Acute hypoxemic respiratory failure. O2 5L midflow. Receiving IV Steroids. WBAT/hip precautions. PT recommends skilled rehab. OT recommends Acute vs SNF.
SNF referrals reviewed. Patient accepted by [facility].
Plan follow patient's mobility and PT/OT recommendations.
Plan speak with patient about SNF preference when closer to d/c.
[2024-02-27] MEDS: PLAQUENIL 300 MG PO (16:55)
--- NOTE | 2024-02-27 17:08 | PTCARENOTE ---
Patient out of bed to chair, hip precautions enforced. Patient weaned to 5 liters mid flow this shift. At times patient desaturates while eating, resident notified.
[2024-02-27] MEDS: BENADRYL 25 MG PO (20:09)
[2024-02-27] MEDS: LIPITOR 10 MG PO (20:09)
[2024-02-28] VITALS (17 sets, daily range): BP systolic 94–159; BP diastolic 45–120; PULSE 98; O2SAT 83–94; BMI 19.8
[2024-02-28] MEDS: TYLENOL PO ×2 (04:38→23:33)
[2024-02-28 04:46] LABS: Hematocrit 27.9 % (37.0-47.0); Mean Corp Hgb Conc. 32.3 g/dL (33.0-37.0); Mean Corpuscular Hgb 32.3 pg (27.0-31.0); Mean Platelet Volume 8.4 fL (7.4-10.4); Platelet Count 224 10^3/uL (130-400); Red Blood Cell Count 2.79 10^6/uL (4.20-5.40); Red Cell Dist. Width 17.2 % (11.5-14.5); White Blood Cell Count 9.6 10^3/uL (4.8-10.8)
[2024-02-28 05:16] LABS: Blood Urea Nitrogen 35 mg/dl (7-17); Calcium 9.2 mg/dl (8.4-10.2); Carbon Dioxide 26 mmol/L (22-30); Chloride 102 mmol/L (98-107); Estimated Creatinine Clearance 39 ml/min; Glucose 102 mg/dl (70-99); Magnesium 1.8 mg/dl (1.6-2.3); Sodium 136 mmol/L (135-145); eGFR > 60.00
--- NOTE | 2024-02-28 06:26 | PTCARENOTE ---
no acute changes. pt cooperative, able to sleep. requested prn ativan/benadryl for sleep. calling appropriately to use BSC. denies any pain. Right hip dressing intact. turns self while in bed. reminded of hip precautions while oob. swallowed pills
whole w/o issues.
call whiteside and tray table left within reach. bed alarm set
[2024-02-28] MEDS: SYMBICORT 80/4.5 MCG INHALER 2 PUFF INH ×2 (07:30→20:16)
[2024-02-28] MEDS: XOPENEX 0.63 MG INHALANT SOLUTION INH ×3 (07:30→20:16)
[2024-02-28] MEDS: SPIRIVA RESPIMAT 2.5 MCG 2 PUFF INH (07:31)
[2024-02-28] MEDS: COLACE 100 MG PO ×2 (08:46→20:03)
[2024-02-28] MEDS: ASPIRIN 325 MG PO (08:46)
[2024-02-28] MEDS: NICODERM TRANSDERMAL 7 MG TRANSDERM (08:47)
[2024-02-28] MEDS: TYLENOL 650 MG PO ×4 (08:47→20:02)
[2024-02-28] MEDS: VISBIOME 1 CAP PO (08:47)
[2024-02-28] MEDS: FIBERCON 625 MG PO (08:47)
[2024-02-28] MEDS: ZESTRIL 10 MG PO (08:49)
[2024-02-28] MEDS: ORETIC 12.5 MG PO (08:50)
[2024-02-28] MEDS: LEXAPRO 20 MG PO (08:50)
[2024-02-28] MEDS: NON-FORMULARY ITEM 1000 GRAMS PO ×2 (08:58→20:03)
[2024-02-28] MEDS: NON-FORMULARY ITEM 40 MG PO (08:59)
[2024-02-28] MEDS: DECADRON 4 MG IV (08:59)
--- NOTE | 2024-02-28 09:06 | W.PN.HOSP.TC ---
Today's Communication/Plan
-
wean O2
wean steroids
cont IS
PT/OT
Assessment / Plan
Assessment / Plan
pt is a 78 year old female
Acute right femoral neck fracture--cause of admission--apprec ortho--s/p right GE[place]GIANA--WBAT--will need SNF--ASA 325mg daily for DVT proph by ortho
Acute hypoxemic respiratory failure--keeping her in hospital--was up to 11 L which necessitated transfer to IMU--apprec pulm--likely multifactorial due to interstitial pneumonia/bronchiolitis superimposed upon underlying interstitial fibrosis with
COPD exacerbation--doubt PE as hypoxia 'predates' her admission here for hip fracture (at home pulse ox 80-85%)--CT scan done without contrast shows stability of pulm nodules--follow up with pulm as outpt--cont Trelegy/Symbicort/Spiriva--now on
steroids, wean as able--cont incentive spirometry--if no improvement with O2 requirements then would do CT chest PE study (given hip fracture....)
Hyperkalemia and WILFRIDO--resolving
Hypoglycemia--resolved with IVFs with dextrose
Essential HTN---cont Lisinopril/HCTZ with holding parameters
RA---cont Plaquenil
code status --FULL
DVT proph -- aspirin
anticipate d/c to SNF when O2 requirements down to 4L, possibly Friday but more likely Friday....
Anticipated Discharge: > 48 hours
Subjective/Interval History
-
Date of Service: February 28, 2024
pt without c/o--I dropped O2 to 4L as pulse ox 96% on 5L
Objective Data
-
Labs:
Laboratory Results
02/28/24
04:28
WBC 9.6
Hgb 9.0 L
Hct 27.9 L
Plt Count 224
Sodium 136
Potassium 5.0
Chloride 102
Carbon Dioxide 26
BUN 35 H
Creatinine 0.9
Glucose 102 H
Calcium 9.2
Vital Signs:
max temp for 24 hours
02/27/24
23:14
Temp 98.4 F
Vital Signs
Temp Pulse Resp BP Pulse Ox
97.1 F 107 18 154/72 93
02/28/24 07:20 02/28/24 08:49 02/28/24 07:35 02/28/24 08:49 02/28/24 07:35
I&O
02/27/24 02/28/24 02/29/24
06:59 06:59 05:59
Intake Total 540 / 540 360 / 360 120 / 120
Output Total 850 / 850 250 / 250
Balance 540 / 540 -490 / -490 -130 / -130
Review of Systems
-
All other systems: Reviewed and negative
Physical Exam
-
General: Appears Chronically Ill (frail elderly female in NAD)
HEENT: Normocephalic, Atraumatic and Oxygen
Respiratory: Clear to Auscultation and Decreased Breath Sounds
Cardiac: Regular Rhythm and S1/S2; Negative Murmur
GI: Soft, Nontender, Nondistended and Normal Bowel Sounds
Musculoskeletal: No Clubbing, No Cyanosis and No Edema
Neuro: Awake and Alert
Psych: Calm
[2024-02-28] MEDS: SENOKOT PO (09:33)
[2024-02-28] MEDS: ATIVAN 0.5 MG PO ×2 (11:12→20:03)
--- NOTE | 2024-02-28 13:10 | W.PN.PUL3 ---
Today's Communication / Plan
-
Patient without significant symptoms despite hypoxia
Suspect chronic component
Continue with current treatment regimen
Wean oxygen as able
Continue prednisone at 40 mg
Will repeat chest x-ray 02/28
May need to obtain VSE
Assessment
-
Patient is a 78-year-old female with history of COPD, rheumatoid arthritis on chronic, hypertension, pulm nodules presenting to ER status post mechanical fall. She had fallen directly on her right hip without other trauma. She was notably
having unsteadiness over the past few months with history of numerous falls. A CT was obtained indicating a minimally displaced fracture of the right femoral neck. She has a history of COPD, last seen in our office in 2020 but has since been
following with [facility]. Underwent right hip cemented bipolar endoprosthesis 02/23/2024 under spinal anesthesia. We are consulted for eval of SOB/hypoxemia.
Acute hypoxic respiratory insufficiency
Acute R hip fractures s/p cemented bipolar endoprosthesis 02/23/24
s/p mechanical fall
Hyperkalemia
Hypoglycemia
Acute on chronic SOB
Fibrosis noted on CT, new/progressed
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
Multiple lung nodules, measuring 3-5mm
Bronchoscopy results 06/12/20: No endobronchial lesions. BAL was performed in both lower lobes and right upper lobe/AFB neg
COPD
Followed by Dr Morrissey, last seen 2020
PFT - FEV1 was 1.26 L or 59% of predicted and previously was 1.50 L or 74% predicted
Cylindrical bronchiectasis RML and lingula
History of tobacco abuse/[id number] smoking history. Quit around 2009
History of pleural effusion
Interstitial lung disease
Rheumatoid arthritis w/ Immunosuppressed status
History of breast cancer s/p Left lumpectomy and axillary node dissection for stage I left breast carcinoma (1993, radiation/no chemo)
Plan/recommendations
At this time, patient is without complaints
Presently 92% on 5 L, with ambulation, 83% on 5 L after short walk
She will likely require oxygen therapy at time of discharge
And reviewing her chest films, she does have interstitial process
Chest x-ray 02/25 shows progression of disease
In reviewing CT chest from 02/23, this has progressed compared to 08/11/2020
Incentive spirometry, out of bed to chair, PT/OT
Prior history of lung disease is noted including COPD, bronchiectasis, pulmonary nodules
Reviewed records from our office in 2020, followed previously by Dr Morrissey
Had been following more recently at [place]--will obtain records
She has history of pulmonary nodules on prior CT, underwent bronchoscopy 3 years ago without evidence of NTM.
Prior imaging reviewed, she thinks last CT in April at [place]
CT reviewed, nodules are stable but she has new pulmonary fibrosis, progressed from prior
Reviewed this with patient
IV steroids
Check d-dimer--age appropriate elevation
Other imaging reviewed--nodules/bronchiectasis noted, prior bronch in 2020 negative for NTM
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
Unclear if this was treated
Repeat sputum 02/24/24 negative
Check proBNP-- neg
ECHO reviewed, stable function, mild PH noted
Ortho following, s/p R hip intervention
Following care team postop management
Likely NWB, rehab needed at discharge
Will need outpatient pulmonary evaluation in our office for PFTs and 6MWT
Reviewed with patient, she wants to transfer back from [place]
Reviewed all diagnostic w/u and answered all questions
Diagnostic Data
Chest X-Ray: 02/22/24-1. Hyperinflation and interstitial coarsening, increased compared to prior chest x-ray.
2. Differential diagnosis includes worsening COPD or superimposed acute interstitial pneumonitis.
3. No evidence of lobar pneumonia, pleural effusion, or pneumothorax.
CT Scan: CHEST 08/11/20- LUNGS: There is moderate biapical scarring as seen on the prior examination. [place] spiculated 1.1 cm opacity in the anterior left upper lobe consistent with scarring and unchanged from the prior exam (image #10 series 2).
There is a posterior right upper lobe 0.7 cm nodule which is larger as compared with 0.5 cm prior (image #15 series 2). Just below this, there is a posterolateral right upper lobe 0.9 cm nodule (image #17 series 2). There was only small focus of
irregular opacity at this level on the prior exam (image #16 prior). Anterior right upper lobe 0.5 cm nodule is minimally larger as compared with prior (image #18 series 2). At the same level, posterior upper lobe 3 mm nodule is more conspicuous as
compared with the prior study (also image #18). Central right upper lobe approximately 0.5 cm nodule is without significant change (image #16 series 2). At the same level, another approximately 0.5 cm nodule just posterior to this is larger as
compared with approximately 0.4 cm prior (image #16 series 2). Largest nodule previously measured at 0.7 cm on the prior study has not increased in size (image #22 series 2). Just superior to that nodule in the lower lobe, another approximately 0.6
cm nodule is also unchanged in size (image #21). In the left upper lobe, 0.3 cm nodule and 0.2 to 0.3 cm nodule were both present prior (image #14 series 2). Slightly inferior to this, 0.4 cm nodule shows no significant interval increase in size
(image #18 series 2). There is superior segment left lower lobe small benign calcified granuloma.
There is no new consolidation. There is no pneumothorax. Mild interstitial and some micronodular opacities at the lung bases similar to prior, at least some probably related to chronic bronchiolitis. These are without significant progression, with
interval slight decrease of the atelectatic changes in the right middle lobe.
Echo: 02/24/24- Normal LV size and function with no regional wall motion abnormalities. LVEF is 60-65% by Arias's method of this. Mild concentric LVH. Normal right ventricular size and function.
Mild tricuspid regurgitation. Estimated pulmonary artery pressure of 44 mmHg. Assuming a right atrial pressure of 3 mmHg. No prior study available for comparison.
PFT's: Spirometry-01/31/20: Spirometry demonstrated moderate obstructive lung disease. The forced vital capacity was 2.10 L or 74% of predicted. The FEV1 was 1.26 L or 59% of predicted. The FEV1/FVC ratio was 63%. There was no improvement in the
FEV1 postbronchodilator.
6MWT- On her 6 minute walk test 07/2018, her lowest saturation was 93%. She ambulated 150 feet less.
On her 6 minute walk test 05/24/20: Her saturation dropped from 95% to 90%. Resting heart rate was 98 and increased to 139. Her perceived dyspnea was 0 at baseline and increased to 2 on a 10 point scale. Her distance ambulated was 200 feet less than
it was in July 2018. In July 2018 her saturation regina was a bit higher at 93% and now 90%. Her maximum heart rate was 20 bpm higher.
Follow pulse oximetry with walking program at home.
Reports and relevant images were personally reviewed.
Total time spent on this encounter __51__ includes review of history, physical exam, medications, laboratory data, personal review of imaging, extensive review of outpatient records, discussion with care team and respiratory therapy.
Subjective Data
-
Date of Service:
Date of Service: February 28, 2024
Chief Complaint: Pulmonary Follow Up
Subjective:
Patient feels great. Denies any shortness of breath, chest pain, nausea, cough
Objective Data
Data Reviewed
Vital Signs / I&O / Oxygen:
Vital Signs
Temp Pulse Resp BP Pulse Ox
97.4 F 108 25 159/120 92
02/28/24 11:20 02/28/24 10:15 02/28/24 10:15 02/28/24 10:00 02/28/24 10:49
Intake and Output
02/27/24 02/28/24 02/29/24
06:59 06:59 05:59
Intake Total 540 / 540 360 / 360 240 / 240
Output Total 850 / 850 250 / 250
Balance 540 / 540 -490 / -490 -10 / -10
SaO2 92
Nasal Cannula flow liters per 5
minute
Physical Exam
General: Comfortable and Other (NAD)
HEENT: Normocephalic, Anicteric and Moist Mucous Membranes
Cardiovascular: S1-S2 and Regular Rhythm
Respiratory: Crackles (Minimal at base), Rhonchi (n) and Non-Labored Respirations
GI: Soft, Non Distended and Non Tender
Neurology: Awake, Alert, No Motor Deficits and Other (swan deformities of hands, RA changes)
Skin: Warm, Dry and Good Color
Labs/Micro/Reports
Lab Data
02/28/24 04:28
02/28/24 04:28
Microbiology
02/24/24 15:12 Sputum Respiratory Culture - Final
Usual Respiratory Juliann
02/24/24 15:12 Sputum Gram Stain - Final
--- NOTE | 2024-02-28 13:39 | PTCARENOTE ---
Patients heart rate is elevated this shift , Sinus tachycardia @115. Patient is asymptomatic. Dr. Yoon aware.
[2024-02-28] MEDS: PLAQUENIL 300 MG PO (16:51)
[2024-02-28] MEDS: BENADRYL 25 MG PO (20:02)
[2024-02-28] MEDS: SENOKOT 17.2 MG PO (20:03)
[2024-02-28] MEDS: LIPITOR 10 MG PO (20:03)
[2024-02-29] VITALS (14 sets, daily range): BP systolic 117–163; BP diastolic 53–82; PULSE 108; O2SAT 93; BMI 21.0
[2024-02-29] MEDS: TYLENOL PO (03:34)
--- NOTE | 2024-02-29 04:30 | PTCARENOTE ---
Patient was able to sleep. prn ativan/Benadryl given per pt request. Pt calling appropriately for assistance to BSC. hip precautions maintained. right hip dressing intact, no drainage noted. denies any pain. Sp02 decreases to mid 80s on 3L with
activity. recovers to low 90s with deep breathing encouragement. titrated between 3-6L midflow overnight; on 4L at this time, lungs coarse at the bases. NSR/ST on tele, no ectopy. call whiteside and tray table within reach.
[2024-02-29 04:40] LABS: Hematocrit 25.6 % (37.0-47.0); Hemoglobin 8.1 g/dL (12.0-16.0); Mean Corp Hgb Conc. 31.6 g/dL (33.0-37.0); Mean Corpuscular Hgb 31.2 pg (27.0-31.0); Mean Corpuscular Volume 98.5 fL (81.0-99.0); Mean Platelet Volume 8.5 fL (7.4-10.4); Platelet Count 246 10^3/uL (130-400); Red Cell Dist. Width 17.2 % (11.5-14.5)
[2024-02-29 05:11] LABS: Blood Urea Nitrogen 42 mg/dl (7-17); Calcium 9.5 mg/dl (8.4-10.2); Carbon Dioxide 26 mmol/L (22-30); Chloride 102 mmol/L (98-107); Estimated Creatinine Clearance 40 ml/min; Glucose 82 mg/dl (70-99); Magnesium 1.7 mg/dl (1.6-2.3); Potassium 4.9 mmol/L (3.5-5.1); Sodium 137 mmol/L (135-145); eGFR > 60.00
[2024-02-29] MEDS: SPIRIVA RESPIMAT 2.5 MCG 2 PUFF INH (07:29)
[2024-02-29] MEDS: SYMBICORT 80/4.5 MCG INHALER 2 PUFF INH ×2 (07:29→19:37)
[2024-02-29] MEDS: XOPENEX 0.63 MG INHALANT SOLUTION INH ×3 (07:29→19:37)
[2024-02-29] MEDS: LEXAPRO 20 MG PO (08:23)
[2024-02-29] MEDS: ASPIRIN 325 MG PO (08:23)
[2024-02-29] MEDS: ORETIC 12.5 MG PO (08:23)
[2024-02-29] MEDS: SENOKOT 17.2 MG PO ×2 (08:23→19:49)
[2024-02-29] MEDS: VISBIOME 1 CAP PO (08:24)
[2024-02-29] MEDS: NICODERM TRANSDERMAL 7 MG TRANSDERM (08:24)
[2024-02-29] MEDS: COLACE 100 MG PO ×2 (08:24→19:49)
[2024-02-29] MEDS: TYLENOL 650 MG PO ×4 (08:24→19:48)
[2024-02-29] MEDS: FIBERCON 625 MG PO (08:24)
[2024-02-29] MEDS: ZESTRIL 10 MG PO (08:24)
[2024-02-29] MEDS: DELTASONE 40 MG PO (08:24)
[2024-02-29] MEDS: NON-FORMULARY ITEM 1 GRAMS PO (08:25)
[2024-02-29] MEDS: NON-FORMULARY ITEM 40 MG PO (08:26)
--- NOTE | 2024-02-29 09:04 | W.PN.HOSP.TC ---
Today's Communication/Plan
-
wean O2 as able
SLOW prednisone taper
d/c planning for Friday
Assessment / Plan
Assessment / Plan
pt is a 78 year old female
Acute right femoral neck fracture--cause of admission--apprec ortho--s/p right [place]--WBAT--will need SNF--ASA 325mg daily for DVT proph by ortho
Acute hypoxemic respiratory failure--keeping her in hospital--was up to 11 L which necessitated transfer to IMU--apprec pulm--likely multifactorial due to interstitial pneumonia/bronchiolitis superimposed upon underlying interstitial fibrosis with
COPD exacerbation--doubt PE as hypoxia 'predates' her admission here for hip fracture (at home pulse ox 80-85%)--CT scan done without contrast shows stability of pulm nodules--follow up with pulm as outpt--cont Trelegy/Symbicort/Spiriva--now on
steroids, wean as able--cont incentive spirometry
Hyperkalemia and WILFRIDO--resolving
Hypoglycemia--resolved with IVFs with dextrose
Essential HTN---cont Lisinopril/HCTZ with holding parameters
RA---cont Plaquenil
code status --FULL
DVT proph -- aspirin
anticipate d/c to SNF Friday....
Anticipated Discharge: 24 - 48 hours
Subjective/Interval History
-
Date of Service: February 29, 2024
pt sitting in the chair--using O2 between 3-5 liters
Objective Data
-
Labs:
Laboratory Results
02/29/24
04:16
WBC 8.0
Hgb 8.1 L
Hct 25.6 L
Plt Count 246
Sodium 137
Potassium 4.9
Chloride 102
Carbon Dioxide 26
BUN 42 H
Creatinine 0.9
Glucose 82
Calcium 9.5
Vital Signs:
max temp for 24 hours
02/28/24
15:10
Temp 97.9 F
Vital Signs
Temp Pulse Resp BP Pulse Ox
97.1 F 111 28 149/68 89
02/29/24 03:31 02/29/24 08:24 02/29/24 06:30 02/29/24 08:24 02/29/24 06:30
I&O
02/28/24 02/29/24 03/01/24
07:59 06:59 06:59
Intake Total
Output Total
Balance
Review of Systems
-
All other systems: Reviewed and negative
Physical Exam
-
General: Well Developed, Well Nourished and No Apparent Distress
HEENT: Normocephalic, Atraumatic and Oxygen
Respiratory: Rhonchi (occasional with decreased breath sounds)
Cardiac: Regular Rhythm and S1/S2; Negative Murmur
GI: Soft, Nontender, Nondistended and Normal Bowel Sounds
Musculoskeletal: No Clubbing, No Cyanosis and No Edema
Neuro: Awake and Alert
Psych: Calm
--- NOTE | 2024-02-29 10:50 | PTCARENOTE ---
patient sent to Xray.
[2024-02-29] MEDS: ATIVAN 0.5 MG PO ×2 (11:09→19:49)
--- NOTE | 2024-02-29 11:16 | PTCARENOTE ---
Patient returned from XRAY. Pt's family at bedside and updated per RN ability.
--- NOTE | 2024-02-29 12:29 | W.PN.PUL3 ---
Today's Communication / Plan
-
Slow steroid wean
Continue to wean oxygen therapy as able
Will likely require home oxygen
Continue inhaler/nebulizer regimen
Disposition efforts with pulmonary follow-up
Assessment
-
Patient is a 78-year-old female with history of COPD, rheumatoid arthritis on chronic, hypertension, pulm nodules presenting to ER status post mechanical fall. She had fallen directly on her right hip without other trauma. She was notably
having unsteadiness over the past few months with history of numerous falls. A CT was obtained indicating a minimally displaced fracture of the right femoral neck. She has a history of COPD, last seen in our office in 2020 but has since been
following with [facility]. Underwent right hip cemented bipolar endoprosthesis 02/23/2024 under spinal anesthesia. We are consulted for eval of SOB/hypoxemia.
Acute hypoxic respiratory insufficiency
Acute R hip fractures s/p cemented bipolar endoprosthesis 02/23/24
s/p mechanical fall
Hyperkalemia
Hypoglycemia
Acute on chronic SOB
Fibrosis noted on CT, new/progressed
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
Multiple lung nodules, measuring 3-5mm
Bronchoscopy results 06/12/20: No endobronchial lesions. BAL was performed in both lower lobes and right upper lobe/AFB neg
COPD
Followed by Dr Morrissey, last seen 2020
PFT - FEV1 was 1.26 L or 59% of predicted and previously was 1.50 L or 74% predicted
Cylindrical bronchiectasis RML and lingula
History of tobacco abuse/[id number] smoking history. Quit around 2009
History of pleural effusion
Interstitial lung disease
Rheumatoid arthritis w/ Immunosuppressed status
History of breast cancer s/p Left lumpectomy and axillary node dissection for stage I left breast carcinoma (1993, radiation/no chemo)
Plan/recommendations
At this time, patient is without complaints
Presently 96% on 4 L, improved from 11 L
She will likely require oxygen therapy at time of discharge
And reviewing her chest films, she does have interstitial process
Chest x-ray 02/25 shows progression of disease
In reviewing CT chest from 02/23, this has progressed compared to 08/11/2020
Incentive spirometry, out of bed to chair, PT/OT
Prior history of lung disease is noted including COPD, bronchiectasis, pulmonary nodules
Reviewed records from our office in 2020, followed previously by Dr Morrissey
Had been following more recently at [place]--will obtain records
She has history of pulmonary nodules on prior CT, underwent bronchoscopy 3 years ago without evidence of NTM.
Prior imaging reviewed, she thinks last CT in April at [place]
CT reviewed, nodules are stable but she has new pulmonary fibrosis, progressed from prior
Reviewed this with patient
Remains on oral prednisone 40 mg. Will require slow wean
Other imaging reviewed--nodules/bronchiectasis noted, prior bronch in 2020 negative for NTM
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
Unclear if this was treated
Repeat sputum 02/24/24 negative
Check proBNP-- neg
ECHO reviewed, stable function, mild PH noted
Ortho following, s/p R hip intervention
Following care team postop management
Likely NWB, rehab needed at discharge
Will need outpatient pulmonary evaluation in our office for PFTs and 6MWT
Reviewed with patient, she wants to transfer back from [place]
Reviewed all diagnostic w/u and answered all questions
Diagnostic Data
Chest X-Ray: 02/22/24-1. Hyperinflation and interstitial coarsening, increased compared to prior chest x-ray.
2. Differential diagnosis includes worsening COPD or superimposed acute interstitial pneumonitis.
3. No evidence of lobar pneumonia, pleural effusion, or pneumothorax.
CT Scan: CHEST 08/11/20- LUNGS: There is moderate biapical scarring as seen on the prior examination. [place] spiculated 1.1 cm opacity in the anterior left upper lobe consistent with scarring and unchanged from the prior exam (image #10 series 2).
There is a posterior right upper lobe 0.7 cm nodule which is larger as compared with 0.5 cm prior (image #15 series 2). Just below this, there is a posterolateral right upper lobe 0.9 cm nodule (image #17 series 2). There was only small focus of
irregular opacity at this level on the prior exam (image #16 prior). Anterior right upper lobe 0.5 cm nodule is minimally larger as compared with prior (image #18 series 2). At the same level, posterior upper lobe 3 mm nodule is more conspicuous as
compared with the prior study (also image #18). Central right upper lobe approximately 0.5 cm nodule is without significant change (image #16 series 2). At the same level, another approximately 0.5 cm nodule just posterior to this is larger as
compared with approximately 0.4 cm prior (image #16 series 2). Largest nodule previously measured at 0.7 cm on the prior study has not increased in size (image #22 series 2). Just superior to that nodule in the lower lobe, another approximately 0.6
cm nodule is also unchanged in size (image #21). In the left upper lobe, 0.3 cm nodule and 0.2 to 0.3 cm nodule were both present prior (image #14 series 2). Slightly inferior to this, 0.4 cm nodule shows no significant interval increase in size
(image #18 series 2). There is superior segment left lower lobe small benign calcified granuloma.
There is no new consolidation. There is no pneumothorax. Mild interstitial and some micronodular opacities at the lung bases similar to prior, at least some probably related to chronic bronchiolitis. These are without significant progression, with
interval slight decrease of the atelectatic changes in the right middle lobe.
Echo: 02/24/24- Normal LV size and function with no regional wall motion abnormalities. LVEF is 60-65% by Arias's method of this. Mild concentric LVH. Normal right ventricular size and function.
Mild tricuspid regurgitation. Estimated pulmonary artery pressure of 44 mmHg. Assuming a right atrial pressure of 3 mmHg. No prior study available for comparison.
PFT's: Spirometry-01/31/20: Spirometry demonstrated moderate obstructive lung disease. The forced vital capacity was 2.10 L or 74% of predicted. The FEV1 was 1.26 L or 59% of predicted. The FEV1/FVC ratio was 63%. There was no improvement in the
FEV1 postbronchodilator.
6MWT- On her 6 minute walk test 07/2018, her lowest saturation was 93%. She ambulated 150 feet less.
On her 6 minute walk test 05/24/20: Her saturation dropped from 95% to 90%. Resting heart rate was 98 and increased to 139. Her perceived dyspnea was 0 at baseline and increased to 2 on a 10 point scale. Her distance ambulated was 200 feet less than
it was in July 2018. In July 2018 her saturation regina was a bit higher at 93% and now 90%. Her maximum heart rate was 20 bpm higher.
Follow pulse oximetry with walking program at home.
Reports and relevant images were personally reviewed.
Total time spent on this encounter __51__ includes review of history, physical exam, medications, laboratory data, personal review of imaging, extensive review of outpatient records, discussion with care team and respiratory therapy.
Subjective Data
-
Date of Service:
Date of Service: February 29, 2024
Chief Complaint: Pulmonary Follow Up
Subjective:
Patient continues to improve. She feels her breathing has improved, denies cough, chest pain, lightheadedness, dizziness. Ambulatory. Presently on 4 to 5 L
Objective Data
Data Reviewed
Vital Signs / I&O / Oxygen:
Vital Signs
Temp Pulse Resp BP Pulse Ox
97.4 F 99 18 142/72 92
02/29/24 07:10 02/29/24 10:00 02/29/24 10:00 02/29/24 10:00 02/29/24 10:04
Intake and Output
02/28/24 02/29/24 03/01/24
07:59 06:59 06:59
Intake Total
Output Total
Balance
SaO2 92
Nasal Cannula flow liters per 5
minute
Physical Exam
General: Comfortable and Other (NAD)
HEENT: Normocephalic, Anicteric and Moist Mucous Membranes
Cardiovascular: S1-S2 and Regular Rhythm
Respiratory: Crackles (Minimal at base), Rhonchi (Few left base) and Non-Labored Respirations
GI: Soft, Non Distended and Non Tender
Neurology: Awake, Alert, No Motor Deficits and Other (swan deformities of hands, RA changes)
Skin: Warm, Dry and Good Color
Labs/Micro/Reports
Lab Data
02/29/24 04:16
02/29/24 04:16
Microbiology
02/24/24 15:12 Sputum Respiratory Culture - Final
Usual Respiratory Juliann
02/24/24 15:12 Sputum Gram Stain - Final
[2024-02-29] MEDS: PLAQUENIL 300 MG PO (17:16)
--- NOTE | 2024-02-29 19:41 | PTCARENOTE ---
Pt received from luz RN. Pt AAOx3. NSR on monitor. HR 99. Pt 0n 5L midflow, sat 96%. Denies SOB currently. Resting in bed reading. Pt preformed HS mouth care. Call light in reach. denies other needs at this time.
[2024-02-29] MEDS: BENADRYL 25 MG PO (21:34)
[2024-02-29] MEDS: NON-FORMULARY ITEM 1000 GRAMS PO (21:34)
[2024-02-29] MEDS: LIPITOR 10 MG PO (21:34)
[2024-03-01] VITALS (13 sets, daily range): BP systolic 122–155; BP diastolic 54–74; PULSE 97; O2SAT 96
[2024-03-01] MEDS: TYLENOL PO ×2 (00:16→04:46)
--- NOTE | 2024-03-01 07:16 | W.PN.HOSP.TC ---
Addendum entered and electronically signed by Talita Yoon MD 03/01/24 12:55:
I saw and evaluated the patient independently. I reviewed the resident�s note and agree with findings and plan as documented by Dr. Gonzalez.
GENERAL: well developed, well nourished, female in no apparent distress
HEENT: NC/AT O2 NC in place
HEART: regular rate and rhythm, +S1, +S2
LUNGS : clear to auscultation bilaterally
ABDOM: soft, nontender, nondistended, + bowel sounds
EXT: no cyanosis, clubbing, or edema
NEUROLOGIC: grossly intact
Acute right femoral neck fracture--actual cause of admission--apprec ortho--s/p right [place]--WBAT--will need SNF--ASA 325mg daily for DVT proph by ortho
Acute hypoxemic respiratory failure--actually keeping her in hospital--was up to 11 L which necessitated transfer to IMU--apprec pulm--likely multifactorial due to interstitial pneumonia/bronchiolitis superimposed upon underlying interstitial
fibrosis with COPD exacerbation--doubt PE as hypoxia 'predates' her admission here for hip fracture (at home pulse ox 80-85%)--CT scan done without contrast shows stability of pulm nodules--follow up with pulm as outpt--cont
Trelegy/Symbicort/Spiriva--now on steroids, SLOW wean as able--cont incentive spirometry
Hyperkalemia and WILFRIDO--resolving
Hypoglycemia--resolved
Essential HTN---cont Lisinopril/HCTZ with holding parameters
RA---cont Plaquenil
code status --FULL
DVT proph -- aspirin
anticipate d/c today
Original Note:
Today's Communication/Plan
-
Possible D/C within the next 24 hrs to SNF.
Wean O2 as able.
Steroid taper.
F/u with pulmonary outpatient.
Assessment / Plan
Assessment / Plan
Assessment / Plan
# Acute right femoral neck fracture s/p right hip hemiarthroplasty 02/23 under the direction of Dr. Warren
-Weightbearing as tolerated to right lower extremity
-Pain control as needed
-ASA 325 mg daily x 4 weeks for DVT prophylaxis.
#Acute hypoxemic respiratory insufficiency likely secondary to COPD progression vs interstitial fibrosis vs bronchiectasis seen on CT chest
#Pulmonary Cachexia
# Respiratory acidosis
-Pulm input appreciated.
-Chest CT 02/23- COPD with worsening predominantly interstitial fibrosis and bronchiectasis at the lung bases. Stable benign multiple bilateral pulmonary nodules.
-Continue on Levalbuterol.
-Continue Trelegy Ellipta, Oral prednisone.
-Will need sebmj-dxe-oecdn oxygen.
-Currently on 5L. Wean o2 as tolerated. Goal of 4L.
-No evidence of Volume overload on physical examination. proBNP 361. Echo 02/23- LVEF is 60-65%. Mild concentric LVH.
# Essential hypertension
-Continue home Meds lisinopril/hydrochlorothiazide with holding parameters.
# Rheumatoid arthritis
-Continue hydroxychloroquine
#Hyperlipidemia
-Continue statins
# Depression/anxiety
-Continue escitalopram, vilazodone
CODE STATUS-full code
DVT prophylaxis-Aspirin 325MG
Anticipated Discharge: Within 24 hours
Subjective/Interval History
-
Patient seen and examined at bedside. Patient denies acute complaints. Denies chest pain, denies palpitation. Reports improvement in Shortness of breath. Currently on 5L NC.
Objective Data
-
Vital Signs:
Vital Signs
Temp Pulse Resp BP Pulse Ox
97.3 F 88 21 136/54 95
03/01/24 03:00 03/01/24 06:00 03/01/24 06:00 03/01/24 06:00 03/01/24 06:00
I&O
02/29/24 03/01/24 03/02/24
06:59 06:59 06:59
Intake Total 480 / 480
Output Total
Balance 480 / 480
Review of Systems
-
All other systems: Reviewed and negative (except as documented)
Physical Exam
-
General: No Apparent Distress
Respiratory: Rhonchi and Decreased Breath Sounds
Cardiac: S1/S2
GI: Soft, Nontender and Nondistended
Musculoskeletal: No Edema
Neuro: Awake and Alert
Psych: Calm
[2024-03-01] MEDS: SYMBICORT 80/4.5 MCG INHALER 2 PUFF INH ×2 (07:43→20:16)
[2024-03-01] MEDS: SPIRIVA RESPIMAT 2.5 MCG 2 PUFF INH (07:43)
[2024-03-01] MEDS: XOPENEX 0.63 MG INHALANT SOLUTION INH ×3 (07:43→20:16)
--- NOTE | 2024-03-01 07:55 | W.PN.PUL3 ---
Today's Communication / Plan
-
Slow steroid wean
Check ambulatory pulse oximetry prior to discharge
Resume Trelegy with prn albuterol upon discharge
Encourage IS use to prevent atelectasis
PT/OT
Pain control
Follow up with orthopedics
Disposition efforts with pulmonary follow-up
Assessment
-
Patient is a 78-year-old female with history of COPD, rheumatoid arthritis on chronic, hypertension, pulm nodules presenting to ER status post mechanical fall. She had fallen directly on her right hip without other trauma. She was notably
having unsteadiness over the past few months with history of numerous falls. A CT was obtained indicating a minimally displaced fracture of the right femoral neck. She has a history of COPD, last seen in our office in 2020 but has since been
following with [facility]. Underwent right hip cemented bipolar endoprosthesis 02/23/2024 under spinal anesthesia. We are consulted for eval of SOB/hypoxemia.
Impression:
Acute hypoxic respiratory insufficiency - improved
Acute R hip fractures s/p cemented bipolar endoprosthesis 02/23/24
s/p mechanical fall
Hyperkalemia - resolved
Hypoglycemia - resolved
Acute on chronic SOB
Fibrosis noted on CT, new/progressed
Conditions present STRIKE PLANNING APPLICATIONS
Multiple lung nodules, measuring 3-5mm
Bronchoscopy results 06/12/20: No endobronchial lesions. BAL was performed in both lower lobes and right upper lobe/AFB neg
COPD
Followed by Dr Morrissey, last seen 2020
PFT - FEV1 was 1.26 L or 59% of predicted and previously was 1.50 L or 74% predicted
Cylindrical bronchiectasis RML and lingula
History of tobacco abuse/[id number] smoking history. Quit around 2009
History of pleural effusion
Interstitial lung disease
Rheumatoid arthritis w/ Immunosuppressed status
History of breast cancer s/p Left lumpectomy and axillary node dissection for stage I left breast carcinoma (1993, radiation/no chemo)
Plan/recommendations
At this time, patient is without complaints
Previosuly 96% on 4 L, improved from 11 L --> now on room air
Check ambulatory pulse oximetry prior to discharge
Chest x-ray 02/25 shows progression of disease
In reviewing CT chest from 02/23, this has progressed compared to 08/11/2020
Incentive spirometry, out of bed to chair, PT/OT
Prior history of lung disease is noted including COPD, bronchiectasis, pulmonary nodules
Reviewed records from our office in 2020, followed previously by Dr Morrissey
Had been following more recently at [facility]--will obtain records
She has history of pulmonary nodules on prior CT, underwent bronchoscopy 3 years ago without evidence of NTM.
Prior imaging reviewed, she thinks last CT in April at [facility]
CT reviewed, mucous plugging in the bases; also nodules are stable but she has new pulmonary fibrosis, progressed from prior with honeycombing seen in the posterior RLL
This was reviewed this with patient
Remains on oral prednisone 40 mg. Will require slow wean
Other imaging reviewed--nodules/bronchiectasis noted, prior bronch in 2020 negative for NTM
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
Unclear if this was treated
Repeat sputum 02/24/24 - NGTD
Check proBNP-- 361 on 02/24/2024
ECHO reviewed, stable function, mild PH noted with PASP 44 mmHg and normal RV size/function
Ortho has signed off; s/p R hip intervention
Pain control
Aspirin recommended X 4 weeks for DVT prophylaxis
Total hip precautions for 6-8 weeks with weightbearing as tolerated to the RLE with assistive device
Will need outpatient pulmonary evaluation in our office for PFTs and 6MWT
Reviewed with patient, she wants to transfer back from [facility]
Reviewed all diagnostic w/u and answered all questions
Pulmonary service will continue to follow along while she remains hospitalized
Diagnostic Data
Chest X-Ray: 02/22/24-1. Hyperinflation and interstitial coarsening, increased compared to prior chest x-ray.
2. Differential diagnosis includes worsening COPD or superimposed acute interstitial pneumonitis.
3. No evidence of lobar pneumonia, pleural effusion, or pneumothorax.
CT Scan: CHEST 08/11/20- LUNGS: There is moderate biapical scarring as seen on the prior examination. [place] spiculated 1.1 cm opacity in the anterior left upper lobe consistent with scarring and unchanged from the prior exam (image #10 series 2).
There is a posterior right upper lobe 0.7 cm nodule which is larger as compared with 0.5 cm prior (image #15 series 2). Just below this, there is a posterolateral right upper lobe 0.9 cm nodule (image #17 series 2). There was only small focus of
irregular opacity at this level on the prior exam (image #16 prior). Anterior right upper lobe 0.5 cm nodule is minimally larger as compared with prior (image #18 series 2). At the same level, posterior upper lobe 3 mm nodule is more conspicuous as
compared with the prior study (also image #18). Central right upper lobe approximately 0.5 cm nodule is without significant change (image #16 series 2). At the same level, another approximately 0.5 cm nodule just posterior to this is larger as
compared with approximately 0.4 cm prior (image #16 series 2). Largest nodule previously measured at 0.7 cm on the prior study has not increased in size (image #22 series 2). Just superior to that nodule in the lower lobe, another approximately 0.6
cm nodule is also unchanged in size (image #21). In the left upper lobe, 0.3 cm nodule and 0.2 to 0.3 cm nodule were both present prior (image #14 series 2). Slightly inferior to this, 0.4 cm nodule shows no significant interval increase in size
(image #18 series 2). There is superior segment left lower lobe small benign calcified granuloma.
There is no new consolidation. There is no pneumothorax. Mild interstitial and some micronodular opacities at the lung bases similar to prior, at least some probably related to chronic bronchiolitis. These are without significant progression, with
interval slight decrease of the atelectatic changes in the right middle lobe.
Echo: 02/24/24- Normal LV size and function with no regional wall motion abnormalities. LVEF is 60-65% by Arias's method of this. Mild concentric LVH. Normal right ventricular size and function.
Mild tricuspid regurgitation. Estimated pulmonary artery pressure of 44 mmHg. Assuming a right atrial pressure of 3 mmHg. No prior study available for comparison.
PFT's: Spirometry-01/31/20: Spirometry demonstrated moderate obstructive lung disease. The forced vital capacity was 2.10 L or 74% of predicted. The FEV1 was 1.26 L or 59% of predicted. The FEV1/FVC ratio was 63%. There was no improvement in the
FEV1 postbronchodilator.
6MWT- On her 6 minute walk test 07/2018, her lowest saturation was 93%. She ambulated 150 feet less.
On her 6 minute walk test 05/24/20: Her saturation dropped from 95% to 90%. Resting heart rate was 98 and increased to 139. Her perceived dyspnea was 0 at baseline and increased to 2 on a 10 point scale. Her distance ambulated was 200 feet less than
it was in July 2018. In July 2018 her saturation regina was a bit higher at 93% and now 90%. Her maximum heart rate was 20 bpm higher.
Follow pulse oximetry with walking program at home.
Reports and relevant images were personally reviewed.
Total time spent today was 37 minutes for this encounter. Time includes reviewing laboratory test/imaging results, reviewing pertinent medical records, obtaining and reviewing medical history, performing an appropriate exam, ordering medications,
tests and procedures. Time also includes documentation of this encounter, coordinating patient care and communicating with other healthcare professionals. Total time does not include separately billed tests performed on this date of service.
Subjective Data
-
Date of Service:
Date of Service: March 01, 2024
Chief Complaint: Pulmonary Follow Up
Subjective:
Patient was seen and evaluated today at bedside. She states that her shortness of breath is much, much better. She is currently on room air breathing company. No acute events reported overnight. Currently denies chest pain, WIN, abdominal pain,
nausea, fevers or chills.
Review of Systems
General: Other (Negative unless mentioned above)
Objective Data
Data Reviewed
Vital Signs / I&O / Oxygen:
Vital Signs
Temp Pulse Resp BP Pulse Ox
97.3 F 22 21 136/54 95
03/01/24 03:00 03/01/24 07:45 03/01/24 07:00 03/01/24 06:00 03/01/24 07:45
Intake and Output
02/29/24 03/01/24 03/02/24
06:59 06:59 06:59
Intake Total 480 / 480
Output Total
Balance 480 / 480
SaO2 95
Nasal Cannula flow liters per 5
minute
Physical Exam
General: Respiratory Distress (negative), Comfortable and Other (NAD)
HEENT: Normocephalic, Anicteric and Moist Mucous Membranes
Cardiovascular: S1-S2 and Peripheral Edema (negative)
Respiratory: Wheeze (negative), Crackles (Minimal at base), Rhonchi (negative), Non-Labored Respirations and Other (Diminished breath sounds bilaterally)
GI: Soft, Non Distended and Non Tender
Neurology: AO x 3, Tremors (negative) and Other (swan deformities of hands, RA changes)
Skin: Warm, Dry, Cyanosis (negative) and Jaundice (negative)
Labs/Micro/Reports
Lab Data
02/29/24 04:16
02/29/24 04:16
[2024-03-01] MEDS: TYLENOL 650 MG PO ×4 (08:45→19:36)
[2024-03-01] MEDS: FIBERCON 625 MG PO (08:45)
[2024-03-01] MEDS: ORETIC 12.5 MG PO (08:45)
[2024-03-01] MEDS: LEXAPRO 20 MG PO (08:45)
[2024-03-01] MEDS: DELTASONE 40 MG PO (08:45)
[2024-03-01] MEDS: ZESTRIL 10 MG PO (08:45)
[2024-03-01] MEDS: ASPIRIN 325 MG PO (08:45)
[2024-03-01] MEDS: VISBIOME 1 CAP PO (08:45)
[2024-03-01] MEDS: NICODERM TRANSDERMAL 7 MG TRANSDERM (08:45)
[2024-03-01] MEDS: SENOKOT PO ×2 (08:46→19:25)
[2024-03-01] MEDS: NON-FORMULARY ITEM 1 GRAMS PO (08:46)
[2024-03-01] MEDS: COLACE PO ×2 (08:46→19:25)
[2024-03-01] MEDS: NON-FORMULARY ITEM 40 MG PO (08:47)
--- NOTE | 2024-03-01 11:43 | PTCARENOTE ---
Assumed care of patient this morning. Patient up to use commode and then into chair right after for breakfast. Pt also just walked with PT out to nurses station and then back to chair. Pt's O2 tapered to 3L this morning. Pt denies any pain to hip,
dressing CDI. Assessment, care and VS as charted.
[2024-03-01] MEDS: ATIVAN 0.5 MG PO ×2 (12:15→19:36)
--- NOTE | 2024-03-01 12:38 | CM ---
Addendum entered by Hortensia Holden 03/01/24 13:10:
Auth for patient to go to SNF 5 days level 1 skilled starting today approved for 03/01-03/05 Auth; [id number] by Shakira, next review 03/05, please call concurrent review [id number]. CM called and left VM for Erlinda at [facility], also tt sent with auth
information.
Ambulance auth [id number] with Acute Care. Please call report to [phone].
Original Note:
Bed available at [facility]. CM calling to start auth.
--- NOTE | 2024-03-01 12:54 | W.DCSUMMARY ---
Addendum entered and electronically signed by Talita Yoon MD 03/01/24 18:28:
Read, reviewed, and agree. See same day progress note for additional details. Time spent coordinating care, DC planning, review of DC plan of care with resident, transition of care, review of records in EMR, med rec, consults, notes, d/w
consultants, nursing, family, and CM= 39 minutes
Patient was requiring between 3-5 L O2 and will likely need O2 after d/c from the SNF.
Original Note:
Discharge Summary
Discharge Data
Date of Admission: 02/22/24
Date of Discharge: 03/01/24
Total time spent discharging patient (in min): 39
-
Pending Results: No
Hospital Course
Brief Hospital Course : Patient is a 78-year-old female with history of COPD, rheumatoid arthritis, hypertension, pulm nodules presenting to ER status post mechanical fall. She had fallen directly on her right hip without other trauma. She
was notably having unsteadiness over the past few months with history of numerous falls in the past. A CT was obtained indicating a minimally displaced fracture of the right femoral neck. She has had increasing desaturation events at home over the
past few months, reportedly satting at 80%-85% on room air. She has never required oxygen as an outpatient. On presentation to ER, patient was afebrile, with blood pressure 129/78, respiratory rate 16, O2 sats 89% on room air. Orthopedics was
consulted for a right hip fracture. Both surgical and non-surgical treatment options were discussed in detail with patient. Patient decided to proceed with surgical intervention of her fracture. She had a right hip hemiarthroplasty under the
direction of Dr. Warren 02/23/2024. Post-op, Examination of the right lower extremity revealed surgical dressings were clean, dry and intact. She will be continued on aspirin 325 mg for 4 weeks for DVT prophylaxis. Throughout the course of
hospital stay, she had an increased demand for oxygen. She required 6-8L of oxygen with O2 sats between 90 to 92%. Project Product Manager was consulted to evaluate patient. A chest CT was ordered which showed COPD with worsening predominantly interstitial
fibrosis and bronchiectasis at the lung bases, multiple bilateral pulmonary nodules dating back to 08/11/2020 were stable suggesting that they are benign. It was determined that her Hypoxic respiratory insufficiency was likely multifactorial due to
interstitial pneumonia/bronchiolitis superimposed upon underlying interstitial fibrosis with COPD exacerbation. At a certain point, she required 11L of oxygen. She was started on Decadron and eventually transitioned to oral Prednisone as her oxygen
level was weaned down. On the day of discharge she required between 5L. She will be discharged to half-way rehab with Oral prednisone taper and continuous round the clock oxygen. She is required to follow [facility] as an outpatient for
further testing and evaluation.
Discharge Plan
-
Patient Disposition: Skilled Nursing/SNF
Discharge Diagnosis/Procedures: Acute right femoral neck fracture
Acute hypoxemic respiratory failure
Pulmonary cachexia
Essential HTN
Condition: Fair
Diet: As tolerated
Activity: As tolerated
Referrals:
bAena Abad PA-C [Family Provider] - in one to two weeks
Nela Melo DO [Active] - in three to four weeks
(PFTs, needs records from [place]
Last seen 2020)
Additional Discharge Medication Instructions: Aspirin 325 mg daily for additional 23 days to complete 4 weeks total use from post-op for DVT prophylaxis.
Prednisone Taper.
Prescriptions:
New
aspirin 325 mg Tablet
325 mg PO DAILY Qty: 25 0RF
prednisone 10 mg Tablet
See Rx Instructions .ROUTE .COMPLEX Qty: 40 0RF
Rx Instructions:
Take By Mouth:
40 mg daily x4 days,
30 mg daily x4 days,
20 mg daily x4 days,
10 mg daily x4 days
Continued
escitalopram oxalate 20 MG tablet
20 mg PO DAILY Qty: 0 0RF
hydroxychloroquine 200 MG tablet
300 mg PO QPM
prednisone 5 mg Tablet
5 mg PO DAILYPRN PRN (Reason: joint pain)
sulfasalazine 500 mg Tablet,Delayed Release (Dr/Ec)
1 g PO BID
glucosamine sulfate [Glucosamine] 500 mg Tablet
500 mg PO DAILY
therapeutic multivitamin Tablet
1 tab PO DAILY
calcium polycarbophil [Fiber (calcium polycarbophil)] 625 mg Tablet
625 mg PO DAILY
lisinopril-hydrochlorothiazide 10-12.5 mg Tablet
1 tab PO DAILY
diphenhydramine-acetaminophen [Tylenol PM Extra Strength] 25-500 mg Tablet
2 tab PO HS
Visbiome 112.5 billion cell Capsule
1 cap PO DAILY
vilazodone 40 mg Tablet
40 mg PO DAILY
Trelegy Ellipta 100-62.5-25 mcg Blister With Device
1 inh INHALATION R DAILY
simvastatin 20 MG tablet
20 mg PO HS
Discharge Orders:
Discharge Patient (As Directed); Ordered 03/01/24
Ordered By: Gordon Gonzalez
Discharge Date and Time
Print Language: [place]
[2024-03-01] MEDS: PLAQUENIL 300 MG PO (17:00)
--- NOTE | 2024-03-01 18:58 | PTCARENOTE ---
Patient sent to [facility] with home medications, Sulfasalazine and Vilazodone.
--- NOTE | 2024-03-01 19:25 | PTCARENOTE ---
Pt received from previous RN. Pt AAOx3. NSR on monitor, HR 100. Pt awaiting d/c. Discharge packet printed by daysutmisael. Report called to receiving facility by carlutmisael. Pt packed and waiting for transport. Call light in reach.
[2024-03-01] MEDS: NON-FORMULARY ITEM 1000 GRAMS PO (19:37)
== END 2024-03-01 20:36 | DRG 521 ==
LOC: IMU 15:08
PROVIDERS: Physician Assistant; Physician Assistant Surgical; Student in an Organized Health Care Education/Training Program; ADMITTING PHYSICIAN Internal Medicine; ATTENDING PHYSICIAN Internal Medicine; CONSULT PHYSICIAN Internal Medicine; CONSULT PHYSICIAN Specialist; EMERGENCY PHYSICIAN Emergency Medicine; FAMILY PHYSICIAN Physician Assistant
PROC: 30233N1 Transfusion of Nonautologous Red Blood Cells into Peripheral Vein, Percutaneous Approach (ICD-10-PCS; 2024-02-23)
PROC: 0SR9019 Replacement of Right Hip Joint with Metal Synthetic Substitute, Cemented, Open Approach (ICD-10-PCS; 2024-02-24)
DX: S72.041A Displaced fracture of base of neck of right femur, initial encounter for closed fracture (principal); J96.01 Acute respiratory failure with hypoxia; R64 Cachexia; D84.9 Immunodeficiency, unspecified; J21.9 Acute bronchiolitis, unspecified; J47.0 Bronchiectasis with acute lower respiratory infection; J84.9 Interstitial pulmonary disease, unspecified; J44.0 Chronic obstructive pulmonary disease with (acute) lower respiratory infection; J44.1 Chronic obstructive pulmonary disease with (acute) exacerbation; Z68.1 Body mass index [BMI] 19.9 or less, adult; E87.29 Other acidosis; N17.9 Acute kidney failure, unspecified; D64.9 Anemia, unspecified; F32.A Depression, unspecified; I12.9 Hypertensive chronic kidney disease with stage 1 through stage 4 chronic kidney disease, or unspecified chronic kidney disease; N18.32 Chronic kidney disease, stage 3b; M06.9 Rheumatoid arthritis, unspecified; W01.0XXA Fall on same level from slipping, tripping and stumbling without subsequent striking against object, initial encounter; E78.00 Pure hypercholesterolemia, unspecified; E87.5 Hyperkalemia; F41.9 Anxiety disorder, unspecified; M81.0 Age-related osteoporosis without current pathological fracture; E16.2 Hypoglycemia, unspecified; Z79.52 Long term (current) use of systemic steroids; Z79.899 Other long term (current) drug therapy; Z87.19 Personal history of other diseases of the digestive system; Z87.891 Personal history of nicotine dependence; Z85.3 Personal history of malignant neoplasm of breast; Z88.1 Allergy status to other antibiotic agents
CPT/HCPCS: 36600; 71045; 71046; 71250; 72192; 73502; 73552; 80048; 80053; 82805; 82962; 83735; 83880; 85025; 85027; 85379; 86850; 86900; 86901; 86920; 87070; 87205; 92526; 92610; 93306; 94640; 97110; 97116; 97162; 97167; 97530; 97535; 99285; C1713; C1776; C1781; P9016

== ENCOUNTER → 2024-05-04 12:32 | Outpatient (REF) | payer OTHER, SELFPAY | LOC: PAVMRI 12:32 | PROVIDERS: ATTENDING PHYSICIAN Physician Assistant; FAMILY PHYSICIAN Physician Assistant | DX: M25.511 Pain in right shoulder (principal) | CPT/HCPCS: 73221 ==

== ENCOUNTER → 2024-05-18 14:27 | Outpatient (REF) | payer OTHER, SELFPAY | LOC: RAD 14:27 | PROVIDERS: ATTENDING PHYSICIAN Nurse Practitioner Family | DX: R09.02 Hypoxemia (principal) | CPT/HCPCS: 71046 ==

== ENCOUNTER → 2024-06-11 09:45 | Outpatient (REF) | payer OTHER, SELFPAY ==
[2024-06-11 11:29] LABS: % Basophils 0.6 % (0-2); % Eosinophils 0.8 % (0-6); % Immature Granulocytes 0.7 % (0-0.5); % Lymphocytes 10.6 % (20.5-51.1); % Monocytes 7.1 % (1.7-9.3); % Neutrophils 80.2 % (42.2-75.2); Absolute Basophils 0.1 10^3/uL (0-0.2); Absolute Eosinophils 0.1 10^3/uL (0-0.7); Absolute Immature Granulocytes 0.1 10^3/uL (0-0.05); Absolute Lymphocytes 0.9 10^3/uL (1.2-3.4); Absolute Monocytes 0.6 10^3/uL (0.1-0.6); Absolute Neutrophils 7.2 10^3/uL (1.4-6.5); Hematocrit 27.2 % (37.0-47.0); Hemoglobin 7.9 g/dL (12.0-16.0); Mean Corpuscular Hgb 32.6 pg (27.0-31.0); Mean Corpuscular Volume 112.4 fL (81.0-99.0); Mean Platelet Volume 8.4 fL (7.4-10.4); Nucleated Red Blood Cells % 0 %; Platelet Count 348 10^3/uL (130-400); Red Blood Cell Count 2.42 10^6/uL (4.20-5.40); Red Cell Dist. Width 19.5 % (11.5-14.5); White Blood Cell Count 8.9 10^3/uL (4.8-10.8)
[2024-06-11 11:56] LABS: ALT (SGPT) 30 U/L (0-35); AST (SGOT) 58 U/L (14-36); Albumin 4.2 g/dl (3.5-5.0); Alkaline Phosphatase 100 U/L (38-126); Blood Urea Nitrogen 38 mg/dl (7-17); Calcium 9.6 mg/dl (8.4-10.2); Carbon Dioxide 20 mmol/L (22-30); Chloride 102 mmol/L (98-107); Glucose 83 mg/dl (70-99); Iron 61 ug/dl (37-170); Potassium 4.9 mmol/L (3.5-5.1); Sodium 134 mmol/L (135-145); Total Bilirubin 0.6 mg/dl (0.2-1.3); Total Cholesterol 198 mg/dl (50-199); Total Protein 8.2 g/dl (6.3-8.2); Triglyceride 88 mg/dl (10-149); Very Low Density Lipoprotein 17 mg/dl (0-30); eGFR 38.51
[2024-06-11 12:06] LABS: HDL Cholesterol 115 mg/dl; LDL Cholesterol, Calculated 66 mg/dl; Percent Saturation 22 % (20-50); Total Iron Binding Capacity 276 ug/dl (265-497)
[2024-06-11 12:32] LABS: Ferritin 50.8 ng/ml (11.1-264.0)
== END ==
LOC: RAD 09:45
PROVIDERS: ATTENDING PHYSICIAN Internal Medicine Rheumatology; FAMILY PHYSICIAN Physician Assistant; OTHER PHYSICIAN Physician Assistant
DX: R91.8 Other nonspecific abnormal finding of lung field (principal); J98.09 Other diseases of bronchus, not elsewhere classified; M05.9 Rheumatoid arthritis with rheumatoid factor, unspecified; Z79.899 Other long term (current) drug therapy; D64.9 Anemia, unspecified; Z85.3 Personal history of malignant neoplasm of breast; J44.9 Chronic obstructive pulmonary disease, unspecified; E78.5 Hyperlipidemia, unspecified; Z13.29 Encounter for screening for other suspected endocrine disorder
CPT/HCPCS: 36415; 71046; 80053; 80061; 82728; 83540; 83550; 84439; 84443; 85025; 86140

== ENCOUNTER 2024-07-23 07:42 | Outpatient (RCR) | payer OTHER, SELFPAY ==
[2024-07-23 08:39] VITALS: BP 149/68
[2024-07-23 08:57] VITALS: BP 138/52
[2024-07-23 10:49] VITALS: BP 149/72
[2024-07-26 11:18] LABS: % Eosinophils 0.1 % (0-6); % Immature Granulocytes 0.7 % (0-0.5); % Lymphocytes 2.2 % (20.5-51.1); % Monocytes 4.5 % (1.7-9.3); % Neutrophils 92.5 % (42.2-75.2); Absolute Immature Granulocytes 0.2 10^3/uL (0-0.05); Absolute Lymphocytes 0.6 10^3/uL (1.2-3.4); Absolute Monocytes 1.2 10^3/uL (0.1-0.6); Hematocrit 31.2 % (37.0-47.0); Mean Corp Hgb Conc. 30.8 g/dL (33.0-37.0); Mean Corpuscular Hgb 28.7 pg (27.0-31.0); Mean Corpuscular Volume 93.1 fL (81.0-99.0); Mean Platelet Volume 7.7 fL (7.4-10.4); Platelet Count 537 10^3/uL (130-400); Red Blood Cell Count 3.35 10^6/uL (4.20-5.40)
[2024-07-26 11:25] LABS: Hemoglobin 9.6 g/dL (12.0-16.0)
== END 2024-07-26 23:59 | disposition home or self-care (01) ==
LOC: OID 07:42
PROVIDERS: ATTENDING PHYSICIAN Internal Medicine Hematology & Oncology
DX: J80 Acute respiratory distress syndrome (principal); M06.9 Rheumatoid arthritis, unspecified (principal); J44.9 Chronic obstructive pulmonary disease, unspecified; D63.8 Anemia in other chronic diseases classified elsewhere; Z99.81 Dependence on supplemental oxygen; Z91.81 History of falling
CPT/HCPCS: 36430; 85025; 86850; 86900; 86901; 86920; P9016

== ENCOUNTER 2024-08-01 17:50 | Inpatient (IN) | payer OTHER, SELFPAY ==
[2024-08-01] VITALS (10 sets, daily range): BP systolic 95–179; BP diastolic 64–98; BMI 17.8
[2024-08-01 12:53] LABS: Hematocrit 28.2 % (37.0-47.0); Hemoglobin 8.6 g/dL (12.0-16.0); Mean Corp Hgb Conc. 30.5 g/dL (33.0-37.0); Mean Corpuscular Hgb 28.5 pg (27.0-31.0); Mean Corpuscular Volume 93.4 fL (81.0-99.0); Mean Platelet Volume 8.3 fL (7.4-10.4); Platelet Count 368 10^3/uL (130-400); Red Blood Cell Count 3.02 10^6/uL (4.20-5.40); Red Cell Dist. Width 22.8 % (11.5-14.5); White Blood Cell Count 21.5 10^3/uL (4.8-10.8)
--- NOTE | 2024-08-01 12:58 | ED.GENMED ---
History of Present Illness
General
Chief Complaint: Breathing Problem
Source: patient and family
Exam Limitations: none
Time Seen by Provider: 08/01/24 12:34
History of Present Illness
History of Present Illness:
79yoF with a history of COPD, rheumatoid arthritis, hypertension, and hyperlipidemia presenting with her family members for evaluation of confusion. Patient has been having a worsening cough over the past week. Family states the cough has been
sounding more wet recently. Family visited her this afternoon and she seemed confused and very weak. Patient was unable to stand. They checked her pulse ox which was 82% on room air. Patient is not typically oxygen dependent. They brought her
immediately to the ED for evaluation. Patient has no complaints on arrival and states she feels normal. She denies feeling short of breath. She denies any chest pain, fevers, chills, vomiting, diarrhea, UTI symptoms. Family states she seems much
better currently.
Past History
Past History
ED Past Medical History: Cancer (breast), COPD, HTN, Hypercholesterolemia and Psychiatric
ED Past Surgical History: Other (The patient has had a lumpectomy in the left breast, perforated bowel)
Social History
Tobacco: Former smoker
Alcohol: Former
Personal:
Living: with family
Phy Exam
General Physical Exam
General Presentation: well appearing and no apparent distress
General Skin: warm and dry
General Habitus: elderly
General Mental: alert
ENT Exam
ENT Exam: normocephalic
Cardiovascular Exam
Cardiovascular Exam: tachycardia
Pulmonary Exam
Pulmonary Exam: other (Rales noted on lung exam. Intermittent hacking cough. Mild increased WOB. Oxygen saturation 93% on 3.5L NC)
Neurological Exam
Neurological Exam: alert and other (Oriented to person, place, and time)
Sameer Coma Scale
Eye Opening: Spontaneous
Verbal Response: Oriented
Motor Response: Obeys Commands
GCS Total Score: 15
Skin Exam
Skin Exam: normal color and warm/dry
Psychiatric Exam
Psychiatric Exam: normal mood/affect
Scores
Heart Failure Risk
Heart Failure Risk Score: Not Applicable
Course
Orders/Labs/Results
Orders:
Orders
08/01/24 12:19
Electrocardiogram (*1) Urgent
Reason for Study: Shortness of Breath
EKG- Treatment ONCE
08/01/24 12:20
CR Chest - 2 Views Urgent
Comment:
Reason For Exam: sob
08/01/24 12:25
BNP [NT-proBNP] Urgent
Complete Blood Count/With Diff Urgent
Comprehensive Metabolic Panel Urgent
Troponin I Urgent
08/01/24 13:50
CT Chest PE Study Urgent
Comment:
Reason For Exam: SOB, tachycardia, hypoxia, elevated troponin
08/01/24 14:18
COVID-19 Antigen Urgent
Source: Nasal Swab
Lactate Level [Lactic Acid] Urgent
Blood Culture Q30M
FEROZ Source: Blood/Venous
Specimen Description:
Influenza A+B Rapid Molecular Urgent
FEROZ Source: Nasal Swab
Specimen Description:
08/01/24 14:23
Blood Culture Q30M
FEROZ Source: Blood/Venous
Specimen Description:
08/01/24 14:36
0.9% Sodium Chloride 500 ml [Nss] 500 ml IV BOLUS
Vancomycin 1 Gram/200 ml [Vancocin] 1 gram in 200 ml IV NOW
08/01/24 14:58
Aztreonam [Azactam] 500 mg Syringe [Syringe-Pump] 0 ml IV NOW
08/01/24 17:07
Admit/Transfer Patient As Directed
Co-Sign Provider:
Level of Care: Inpatient admission
Assign to:: Medical/Surgical
Physician / Group: Genevieve
Diagnosis: sepsis due to PNA
Reason for Hospitalization: sepsis due to PNA
Expected length of stay greater than two midnights?: Yes
ELOS- Estimated Length of Stay in days: 4
I certify the patient meets the requirements for IP care: Yes
PRN Pain Medication Management As Directed
May give lesser potent ordered pain med per pt: Yes
preference::
Protocol:: Medication orders for pain may be administered in a
manner that supports deferring to patient preference
when the pt is:
- Requesting an ordered lesser potent pain medication.
Least to most potent pain medications are defined
as: acetaminophen < NSAID < tramadol < opioids
(morphine, oxycodone, hydromorphone).
- Requesting a lesser dose of the same medication IF
ORDERED.
- Requesting a less intrusive route of administration
if both routes are prescribed by the provider (PO <
IV).
08/01/24 17:10
Code Status As Directed
Resuscitation Status: Full Code
Abnormal Lab Results
08/01/24
12:25
WBC 21.5 H 10^3/uL
(4.8-10.8)
RBC 3.02 L 10^6/uL
(4.20-5.40)
Hgb 8.6 L g/dL
(12.0-16.0)
Hct 28.2 L %
(37.0-47.0)
MCHC 30.5 L g/dL
(33.0-37.0)
RDW 22.8 H %
(11.5-14.5)
Abs Immat Gran (auto) 0.2 H 10^3/uL
(0-0.05)
Absolute Neuts (auto) 19.3 H 10^3/uL
(1.4-6.5)
Absolute Lymphs (auto) 0.8 L 10^3/uL
(1.2-3.4)
Absolute Monos (auto) 1.0 H 10^3/uL
(0.1-0.6)
Immature Gran % 1.1 H %
(0-0.5)
Neutrophils % 89.8 H %
(42.2-75.2)
Lymphocytes % 3.5 L %
(20.5-51.1)
BUN 45 H mg/dl
(7-17)
Creatinine 1.1 H mg/dL
(0.6-1.0)
Alkaline Phosphatase 136 H U/L
(38-126)
Troponin I 0.045 H* ng/ml
Albumin 2.8 L g/dl
(3.5-5.0)
08/01/24 12:25
08/01/24 12:25
Vital Signs
Initial and Last Documented VS:
Initial Vital Signs
Temp Pulse Resp BP Pulse Ox
98.9 F 78 18 165/86 78
08/01/24 12:07 08/01/24 12:07 08/01/24 12:07 08/01/24 12:07 08/01/24 12:07
Last Documented Vital Signs
Temp Pulse Resp BP Pulse Ox
98.9 F 116 17 162/88 97
08/01/24 12:07 08/01/24 17:15 08/01/24 17:15 08/01/24 17:00 08/01/24 14:16
MDM/Problems Addressed
Differential Diagnosis Includes:
79yoF here with weakness and confusion that began today. Having an ongoing cough x 1 week that is worsening. Oxygen saturation in the 80s at home and 78% in triage. Hx of COPD, not oxygen dependent at baseline. She is on 3.5L NC on initial exam and
there is mildly increased WOB. She states she feels normal and family confirms that she seems much better than before. She is A&Ox3. Rales noted on lung exam. Tachycardia present with HR in the 110-120 range. Differential diagnosis includes but is
not limited to: pneumonia, COPD exacerbation, sepsis, PE
Initial ED plan: Check cardiac labs, troponin, BNP, EKG, and CXR.
*EKG
Interpreted by ED Provider?: Yes
EKG Intrepretation Date: 08/01/24
Heart Rate: 118
Rate: tachycardiac
Rhythm: sinus and PAC's
[place]: normal axis
QRS Pattern: right bundle branch block (incomplete)
Ischemia: no ischemia
*Critical Care Note
Total Time (30-74mins, 75-104mins- exclusive of procedures): Not Applicable
Update Note
Update Note:
Labs reveal a leukocytosis with a WBC of 21. Troponin mildly elevated at 0.045. No ischemic changes on EKG. CXR shows severe L sided pneumonia. Patient persistently tachycardic during ED stay. Given elevated troponin and tachycardia, CTA chest
ordered to evaluate for possible underlying PE/pulmonary infarct which came back negative. Lactate, blood cultures, and IV aztreonam/vancomycin ordered (cephalosporin allergy). She was admitted for further management.
ED Attending Note
-
Portions of this chart may have been created with voice recognition software.� Occasional wrong word or��sound alike� substitutions may have occurred due to the inherent limitations of voice recognition software.
Discharge Plan
Departure
Patient Disposition: Admit
Date of Disposition: 08/01/24
Time of Disposition: 15:50
Presentation/result/management discussed w/ accepting MD/DO: Hospitalist
Discharge Problem:
Pneumonia involving left lung, Sepsis, Acute hypoxemic respiratory failure, Elevated troponin
Interventions
Interventions:
*Risk Screen - Suicide Last Done: 08/01/24 12:07
*General Assessment Last Done: 08/01/24 12:07
*Neglect/Abuse Screening Last Done: 08/01/24 12:07
*ED- Fall Risk Assessment Last Done: 08/01/24 12:17
*ED COVID-19 Vaccine History Last Done: 08/01/24 12:17
ED- Cardiac Assessment Last Done: 08/01/24 12:17
ED- Neurological Assessment Last Done: 08/01/24 12:17
ED- Pulmonary Assessment Last Done: 08/01/24 12:17
[2024-08-01 13:05] LABS: ALT (SGPT) 25 U/L (0-35); AST (SGOT) 33 U/L (14-36); Albumin 2.8 g/dl (3.5-5.0); Alkaline Phosphatase 136 U/L (38-126); Blood Urea Nitrogen 45 mg/dl (7-17); Calcium 9.3 mg/dl (8.4-10.2); Carbon Dioxide 30 mmol/L (22-30); Chloride 101 mmol/L (98-107); Glucose 94 mg/dl (70-99); Potassium 4.3 mmol/L (3.5-5.1); Sodium 139 mmol/L (135-145); Total Bilirubin 0.4 mg/dl (0.2-1.3); Total Protein 6.4 g/dl (6.3-8.2); eGFR 51.43
[2024-08-01 13:40] LABS: NT-proBNP 6660 pg/ml; Troponin I 0.045 ng/ml
[2024-08-01 14:48] LABS: Lactic Acid 0.8 mmol/L (0.7-2.0)
[2024-08-01 14:49] LABS: COVID-19 Antigen Negative (Negative)
[2024-08-01 15:26] LABS: % Basophils 0.8 % (0-2); % Immature Granulocytes 1.1 % (0-0.5); % Lymphocytes 3.5 % (20.5-51.1); % Monocytes 4.8 % (1.7-9.3); % Neutrophils 89.8 % (42.2-75.2); Absolute Basophils 0.2 10^3/uL (0-0.2); Absolute Immature Granulocytes 0.2 10^3/uL (0-0.05); Absolute Lymphocytes 0.8 10^3/uL (1.2-3.4); Absolute Neutrophils 19.3 10^3/uL (1.4-6.5); Nucleated Red Blood Cells % 0.1 %
[2024-08-01] MEDS: NSS 500 IV (15:26)
[2024-08-01] MEDS: AZACTAM 5 MG IV (15:27)
[2024-08-01] MEDS: VANCOCIN 200 IV (15:31)
--- NOTE | 2024-08-01 16:29 | HPS.HSE ---
Family Physician
-
Family Physician: INTERVIEWE UNKNOWN - PT NOT
Chief Complaint
-
Confusion and cough
History of Present Illness
79 y/o F with PMHx:
COPD
Rheumatoid arthritis
Essential hypertension
Hyperlipidemia
Chronic anemia
Who presents with chief complaints of confusion and cough. When asked the patient states she feels fine. She denies any acute complaints at this time. History is also obtained from patient's . He reports that the patient has baseline
shortness of breath due to her COPD. She also has baseline cough which has never been productive. Patient's cough is been worse over the past few days. This morning the patient woke up around 4 in the morning and was confused. She was asking for
her pocketbook. He gave it to her and then she placed on the floor. Patient was also found of a pulse ox of 82% on room air. She was brought to the hospital due to confusion and acute hypoxemia. No reports of fever at home. Denies any other
acute complaints.
Medical History
Past Medical History
Past Medical History: Reports Other (COPD Rheumatoid arthritis Essential hypertension Hyperlipidemia)
Past Surgical History: Reports Other (N/A)
Social History
Tobacco: Former Smoker
Alcohol: Former
Drug: None
Family History
Family History: Not pertinent
Allergies / Home Medications
Allergies reflects when Allergies were last updated in [facility].
Home Medications with original date entered in [facility]
Allergy/Medication List:
Allergies
Allergy/AdvReac Type Severity Reaction Status Date / Time
cefaclor [From [facility]] Allergy hives, Verified 08/01/24 12:07
flushed
Home Medications
escitalopram oxalate 20 mg tablet 20 mg PO DAILY ##0 02/05/14
hydroxychloroquine 200 mg tablet 300 mg PO QPM Autoimmune Disorder 04/27/17
Lactobac no.2-Bifidobac no.1-S. thermo 112.5 billion cell capsule (Visbiome) 1 cap PO DAILY Gastrointestinal Issue 02/22/24
calcium polycarbophil 625 mg tablet (Fiber (calcium polycarbophil)) 625 mg PO DAILY Supplement 02/22/24
diphenhydramine 25 mg-acetaminophen 500 mg tablet (Tylenol PM Extra Strength) 2 tab PO HS Pain 02/22/24
lisinopril 10 mg-hydrochlorothiazide 12.5 mg tablet 1 tab PO DAILY Blood Pressure 02/22/24
prednisone 5 mg tablet 5 mg PO DAILYPRN PRN joint pain 02/22/24
simvastatin 20 mg tablet 20 mg PO HS Anti-Inflammatory 02/22/24
therapeutic multivitamin 1 tab PO DAILY Supplement 02/22/24
vilazodone 40 mg tablet 40 mg PO DAILY Mental Health/Anxiety 02/22/24
lorazepam 0.5 mg tablet 0.5 mg PO Q4HPRN PRN anxiety #10 tabs 03/01/24
budesonide 160 mcg-glycopyr 9 mcg-formot 4.8 mcg/actuation HFA inhaler (Breztri Aerosphere) 2 inh inhalation R BID 07/23/24
albuterol sulfate 2.5 mg/3 mL (0.083 %) solution for nebulization 2.5 mg inhalation R QID 08/01/24
albuterol sulfate 90 mcg/actuation aerosol inhaler 2 puff inhalation R Q4HPRN PRN sob 08/01/24
fluticasone fur. 100 mcg-umeclid 62.5 mcg-vilant 25 mcg inhalat.powder (Trelegy Ellipta) 1 inh inhalation R DAILY 08/01/24
inhalational spacing device (OptiChamber Nicky C spacer) 08/01/24
Review of Systems
-
History Source: Patient
A 12 point ROS was completed and negative except as noted: Yes
Physical Exam
Vital Signs
Vital Signs
Temp Pulse Resp BP Pulse Ox
98.9 F 118 18 179/98 97
08/01/24 12:07 08/01/24 12:18 08/01/24 12:07 08/01/24 12:18 08/01/24 12:18
Physical Exam
General: Other (.)
Laboratory Results
-
08/01/24 12:25
08/01/24 12:25
Laboratory Results
Lactic Acid 0.8 mmol/L (0.7-2.0) 08/01/24 14:18
Total Bilirubin 0.4 mg/dl (0.2-1.3) 08/01/24 12:25
AST 33 U/L (14-36) 08/01/24 12:25
ALT 25 U/L (0-35) 08/01/24 12:25
Alkaline Phosphatase 136 U/L (38-126) H 08/01/24 12:25
Troponin I 0.045 ng/ml H* 08/01/24 12:25
Impression/Plan
-
Gen: NAD, AAOx3, appears chronically ill malnourished.
Eyes: EOMI, PERRLA, no scleral icterus.
Neck: supple.
CV: Tachycardic, regular rhythm, +S1/S2, no m/r/g.
Resp: Decreased breath sounds in the left base
Abd: +BS, soft, NT, ND
Skin: No rashes.
Neuro: CN 2-12 intact, non-focal.
Psych: Normal mood and affect.
CTA chest:
1. No evidence of pulmonary embolism.
2. Severe left lower lobe pneumonia.
Sepsis and acute hypoxemic respiratory insufficiency due to acute LLL PNA:
-COVID/Flu NEG
-Leukocytosis with L-shift
-currently on 3L NC O2
-started on Vanco/Aztreonam due to cephalosporin allergy
-continue with Zosyn/Vanco
-cont IVFs
-follow BCxs
Other problems:
COPD, not in acute exac, not on home O2, cont Breztri
Rheumatoid arthritis: Continue Plaquenil
Essential hypertension: Continue Lisinopril (hold HCTZ while on IVF support)
Hyperlipidemia: Continue statin
Chronic anemia: Hb stable
Underweight, likely severe protein calorie malnutrition
FULL/Lovenox
[2024-08-01] MEDS: D5/0.45%NACL 1000 IV (20:57)
[2024-08-01] MEDS: PLAQUENIL 300 MG PO (20:58)
[2024-08-01] MEDS: SYMBICORT 80/4.5 MCG INHALER INH (21:44)
[2024-08-01] MEDS: LIPITOR 10 MG PO (21:55)
[2024-08-01] MEDS: ATIVAN 0.5 MG PO (21:55)
--- NOTE | 2024-08-01 23:06 | PHA.VAN.IN ---
Assessment
- Assessment
Renal Function: Appears similar to baseline
Concomitant Antimicrobials: piperacillin/tazobactam
AUC Dosing Plan
- Dosing Variables
Dosing Weight (kg): 47.8
Dosing CrCl (ml/min): 28
Vd coefficient (L/kg): 0.7
- Empiric Dosing
Initial / Loading Dose: Vancomycin 1000mg administered 08/01 at 1530
Maintenance Regimen: Vancomycin 500mg IV Q24h to start 08/02 at 0600
Estimated AUC (mcg*h/mL): 548
Estimated Peak (mcg*h/mL): 30.8
Estimated Trough (mcg/ml): 16.3
Estimated Half Life (H): 25.1
BMI 17.8, used IBW for calculations. Pt may have better clearance than population kinetics suggest.
Will follow closely since Est t1/2 is 25hr and pt also at risk for accumulation.
- Monitoring
No levels ordered at this time: Will follow with renal function and order levels as needed.
Pharmacokinetics Vancomycin I
- -
Patient Age: 79
Patient Sex: Female
Vancomycin Day #: 1
Indication: Pulmonary/Respiratory
Requesting Provider: Dr. Vallejo
Pertinent Antimicrobial Allergies:
cefaclor [From Ceclor] Allergy (Verified 08/01/24 12:07)
hives, flushed
Height / Weight:
Height 5 ft 1 in
Actual Weight 42.723 kg
Pertinent Past Medical History: BMI 17.8
- Vital Signs / Lab Results
Temp Pulse Resp BP Pulse Ox
98 F 120 18 168/93 95
08/01/24 19:41 08/01/24 19:41 08/01/24 19:41 08/01/24 19:41 08/01/24 19:41
Lab Results - Hematology
08/01/24
12:25
WBC 21.5 H
Lab Results - Chemistry
08/01/24
12:25
BUN 45 H
Creatinine 1.1 H
Albumin 2.8 L
08/01/24
14:18
Lactic Acid 0.8
Microbiology Results
08/01/24 14:18 Influenza Types A & B (BRI) - Final
Nasal Swab Negative for Influenza A & B, NAAT
Negative results must be combined with clinical observations
and patient history.
Nucleic Acid Amplification test (NAAT)performed on the
[employer] platform.
[2024-08-01] MEDS: LASIX 20 MG IV (23:18)
[2024-08-02] VITALS (18 sets, daily range): BP systolic 96–144; BP diastolic 54–105; PULSE 2–108; O2SAT 91; BMI 17.4
[2024-08-02] MEDS: ZOSYN 50 IV ×5 (00:24→23:07)
--- NOTE | 2024-08-02 00:30 | PTCARENOTE ---
0015: Recheck BP 120/67. IVF DCed. Order for telemetry, sinus tach 110-120s. Checked rectal temp 100.6- rectal tylenol given. Corn [employer]FER BLACK [employer] WHITE aware.
2154: Pt given PO ativan per request. Rechecked BP 165/89 HR 120 pulse ox 94 4 L NC RR 28. Pt currently sleeping. Corn [employer]OOFER BLACK [employer] WHITE notified order for IV lasix given.
1940: Pt came up to floor BP 168/93 HR 110-120s, pt anxious, constantly trying to get oob, remains confused. Pt moved closer to nurses station. Corn [employer]FER [employer]ACK [employer] WH[employer] aware.
[2024-08-02] MEDS: TYLENOL/FEVERALL 650 MG RECTAL (00:32)
--- NOTE | 2024-08-02 02:12 | PTCARENOTE ---
0015: Pts breathing appears more labored, moist nonproductive cough, wet voice quality. Pt drowsy with recent administration of ativan. RR 28 pulse ox 94% 4 L FL. Warrior [employer]PERATOR aware.
2200: Swallow screen completed with pt with no issue. Medications administered. When administering medications at 2200 pt coughing with PO, swallow screen completed. Pt made NPO. [employer]INE PLANT OPERATOR made aware.
--- NOTE | 2024-08-02 03:00 | PTCARENOTE ---
Pts pulse ox dropped 86 % 4 L NC, increased to 6 L slowly coming up to 90-92% on finger. Pt with very shallow breathing, crackles throughout, RR 28-32. Pt warm to touch temp 99.9 rectal. With no urine output- bladder scanned for 772 cathed for 550
mls clear yellow urine. Respiratory notified, bipap applied. Portable CXR completed. ELECTRONIC SEMICONDUCTOR PROCESSOR orders for IMU.
[2024-08-02] MEDS: DUONEB 3 ML INH ×5 (03:02→19:49)
--- NOTE | 2024-08-02 03:34 | W.PN.UPDATE ---
Update Note
Progress Note Update
Patient noted earlier this shift being confused and climbing oob. Hypertensive at 165 systolic. No hx of CHF but BMP 6660. Telemetry added, HR 120s, Lasix 20 mg IV x1. IVF stopped. Pulse oximetry dropped to 84% 4L. shallow breathes with crackles
throughout. Bipap applied. Duoneb given. bladder scanned for 772 cathed for 550. Will transfer to IMU. IV abts continue for LLL PNA. PCXR done overnight.
--- NOTE | 2024-08-02 04:44 | PTCARENOTE ---
Assumed care of Pt from 4W RN. Pt transferred on BiPaP 04/01 10L SPO2 98% she appears to be tolerating well. B/L Lungs scattered crackles diminished and Left coarse in base 2/[address] up. Pt Drowsy but arousable to voice, oriented to self and place. Pt
has no complaints of pain at this time. bed alarm on, call whiteside within reach. Assessment vitals as charted.
[2024-08-02 04:50] LABS: Hemoglobin 8.2 g/dL (12.0-16.0); Mean Corp Hgb Conc. 30.4 g/dL (33.0-37.0); Mean Corpuscular Hgb 28.9 pg (27.0-31.0); Mean Corpuscular Volume 95.1 fL (81.0-99.0); Mean Platelet Volume 8.6 fL (7.4-10.4); Platelet Count 353 10^3/uL (130-400); Red Blood Cell Count 2.84 10^6/uL (4.20-5.40); Red Cell Dist. Width 22.6 % (11.5-14.5); White Blood Cell Count 17.5 10^3/uL (4.8-10.8)
[2024-08-02 05:04] LABS: Blood Urea Nitrogen 35 mg/dl (7-17); Calcium 8.9 mg/dl (8.4-10.2); Carbon Dioxide 30 mmol/L (22-30); Chloride 100 mmol/L (98-107); Estimated Creatinine Clearance 31 ml/min; Glucose 72 mg/dl (70-99); Potassium 3.8 mmol/L (3.5-5.1); Sodium 139 mmol/L (135-145); eGFR 57.66
[2024-08-02] MEDS: VANCOCIN HCL 500 MG 100 IV (05:47)
[2024-08-02] MEDS: SYMBICORT 80/4.5 MCG INHALER 2 PUFF INH (07:29)
--- NOTE | 2024-08-02 08:34 | W.PN.HOSP.TC ---
Today's Communication/Plan
-
see plan
Assessment / Plan
Assessment / Plan
Gen: remains NAD, AAOx3, appears chronically ill malnourished.
Eyes: EOMI, PERRLA, no scleral icterus.
Neck: supple.
CV: remains Tachycardic, regular rhythm, +S1/S2, no m/r/g.
Resp: remains with decreased breath sounds in the left base
Abd: +BS, soft, NT, ND
Skin: No rashes.
Neuro: CN 2-12 intact, non-focal.
Psych: Normal mood and affect.
CTA chest 08/01/24:
1. No evidence of pulmonary embolism.
2. Severe left lower lobe pneumonia.
CXR: Left basilar opacification likely representing pneumonia without significant change in comparison to recent prior study. No pneumothorax.
Sepsis and acute hypoxemic respiratory failure due to acute LLL PNA:
-COVID/Flu NEG
-Leukocytosis with L-shift
-did require 6L NC O2 O/N, now on BIPAP 12/5 with 10L O2
-continue with Zosyn/Vanco
-was on IVFs which were stopped and Lasix 20mg IV given O/N (unclear why this was done, no evidence of CHF at this time)
-follow BCxs
-will c/s pulm considering severity of pneumonia and underlying COPD
-repeat CXR in AM
Other problems:
COPD, not in acute exac, not on home O2, cont Breztri
Rheumatoid arthritis: Continue Plaquenil
Essential hypertension: Continue Lisinopril, holding home HCTZ
Hyperlipidemia: Continue statin
Chronic anemia: Hb stable
Underweight, likely severe protein calorie malnutrition
FULL/Lovenox
Anticipated Discharge: > 48 hours
Subjective/Interval History
-
Date of Service: August 02, 2024
Denies SOB.
Objective Data
-
Labs:
Laboratory Results
08/02/24
04:28
WBC 17.5 H
Hgb 8.2 L
Hct 27.0 L
Plt Count 353
Sodium 139
Potassium 3.8
Chloride 100
Carbon Dioxide 30
BUN 35 H
Creatinine 1.0
Glucose 72
Calcium 8.9
Vital Signs:
Vital Signs
Temp Pulse Resp BP Pulse Ox
98.7 F 101 12 131/62 97
08/02/24 07:29 08/02/24 07:31 08/02/24 07:31 08/02/24 06:00 08/02/24 07:31
I&O
08/01/24 08/02/24 08/03/24
06:59 06:59 06:59
Intake Total 150 / 150
Output Total 550 / 550
Balance -400 / -400
--- NOTE | 2024-08-02 11:21 | PTOTSP ---
Dysphagia Eval
Patient presents w/ signs concerning for mild oral/pharyngeal dysphagia and possible aspiration w/ thin liquids as a liquid wash following solids. Risk factors for dysphagia noted (i.e., acute PNA; COPD, RA).
Recommend:
1. IDDSI Level 6 Soft/Bite Sized, Thin
2. Medications: in puree
3. Strategies: upright to 90 degrees, full supervision, assist as needed, small single sips/bites, slow rate, clear mouth before next sip/bite
4. Oral care 3x daily
5. Video swallow study to objectively assess swallowing function
--- NOTE | 2024-08-02 11:54 | PHA.VAN.FU ---
Vancomycin Assessment / Plan
- Assessment
Renal Function: Stable (1.0)
WBC's are: Trending Down (21.5->17.5)
In the past 24 hrs, patient has been: Febrile (100.6)
Concomitant Antimicrobials: Hydroxychloroquine, Piperacillin/Tazobactam
- Dosing Plan
Continue: Vanco 500mg Q24H
- Monitoring Plan
No level(s) ordered at this time: Consider in the next few days
- Follow Up
Pharmacy will continue to follow.
Vancomycin Follow UP
- -
Patient Age: 79
Patient Sex: Female
Vancomycin Day #: 1
Indication: Pulmonary/Respiratory
Requesting Provider: Dr. Vallejo
Pertinent Antimicrobial Allergies:
cefaclor [From Ceclor] Allergy (Verified 08/01/24 12:07)
hives, flushed
Height / Weight:
Height 5 ft 1 in
Actual Weight 41.7 kg
IBW in k.8
Pertinent Past Medical History: BMI 17.8
- Vital Signs / Lab Results
Temp Pulse Resp BP Pulse Ox
98.7 F 105 14 131/62 97
08/02/24 07:29 08/02/24 11:47 08/02/24 11:47 08/02/24 06:00 08/02/24 11:47
Lab Results - Hematology
08/01/24 08/02/24
12:25 04:28
WBC 21.5 H 17.5 H
Lab Results - Chemistry
08/01/24 08/02/24
12:25 04:28
BUN 45 H 35 H
Creatinine 1.1 H 1.0
Estimated Creat Clear 31
Albumin 2.8 L
08/01/24
14:18
Lactic Acid 0.8
Microbiology Results
08/02/24 04:28 Nasal Screen MRSA (PCR) - Final
Nose
08/01/24 14:18 Influenza Types A & B (BRI) - Final
Nasal Swab Negative for Influenza A & B, NAAT
Negative results must be combined with clinical observations
and patient history.
Nucleic Acid Amplification test (NAAT)performed on the
[employer] platform.
[2024-08-02] MEDS: ZESTRIL PO (12:52)
[2024-08-02] MEDS: LEXAPRO 20 MG PO (13:18)
--- NOTE | 2024-08-02 14:36 | PTOTSP ---
Videofluoroscopic swallow study
Patient presents with mild oral, WFL-mild pharyngeal dysphagia. No aspiration occurred. See patient care note for details.
Recommend:
1. IDDSI Level 6 Soft/Bite Sized, Thin
2. Medications: in puree
3. Strategies: upright to 90 degrees, full supervision, assist as needed, small single sips/bites, slow rate, clear mouth before next sip/bite, avoid mixed consistencies (i.e., cereal w/ milk, soup w/ pieces, fruit cup, medicine w/ water)
4. Oral care 3x daily
5. Dysphagia tx at the acute care level for instruction in compensations and to determine if/when diet advancement appropriate
--- NOTE | 2024-08-02 15:08 | CON.PUL ---
Consultation
Consultation Request
Date/Time Consultation Requested: 08/02/2024
Date/Time Consultation Performed: 08/02/2024
Requesting Provider: Faraz Vallejo
Performing Provider: Grzegorz Spencer
Reason for Consultation: Pneumonia
Medical History
-
Chief Complaint: Shortness of breath
History of Present Illness:
Patient is a very pleasant 79-year-old female with known history of severe COPD, bilateral lower lobe mild fibrotic changes with traction bronchiectasis and pulmonary nodules who presented to the hospital with increasing cough and some confusion
over the last 2 weeks. Patient reportedly had an episode of pneumonia last year in January and required home oxygen which she eventually improved and was taken off supplemental oxygen. Her last 6-minute walk test in the clinic was unremarkable
without any desaturation. Over the last 2 weeks he started having increasing cough with occasional wheezing and small amount of phlegm production. Patient also noted to be increasingly confused and was noted to be hypoxic with pulse ox down to
82%. She was brought to the emergency room for further workup. Imaging in emergency room was suggestive of dense left lower lobe pneumonia. Pulmonary consultation was requested for further input.
Past Medical History: Reports Other (COPD Rheumatoid arthritis Essential hypertension Hyperlipidemia)
Past Surgical History: Reports Other (N/A)
Social History
Tobacco: Former Smoker
Alcohol: Former
Drug: None
Family History
Family History: Not pertinent
Allergies / Home Medications
Allergies
Allergy/AdvReac Type Severity Reaction Status Date / Time
cefaclor [From [facility]] Allergy hives, Verified 08/01/24 12:07
flushed
Home Medications
�Medication �Instructions �Recorded �Confirmed �Last Taken �Type
escitalopram oxalate 20 mg tablet 20 mg PO DAILY ##0 02/05/14 08/01/24 08/01/24 Rx
hydroxychloroquine 200 mg tablet 300 mg PO QPM Autoimmune Disorder 04/27/17 08/01/24 08/01/24 History
Lactobac no.2-Bifidobac no.1-S. 1 cap PO DAILY Gastrointestinal 02/22/24 08/01/24 08/01/24 History
thermo 112.5 billion cell capsule Issue
(Visbiome)
calcium polycarbophil 625 mg 625 mg PO DAILY Supplement 02/22/24 08/01/24 08/01/24 History
tablet (Fiber (calcium
polycarbophil))
diphenhydramine 25 2 tab PO HS Pain 02/22/24 08/01/24 07/31/24 History
mg-acetaminophen 500 mg tablet
(Tylenol PM Extra Strength)
lisinopril 10 1 tab PO DAILY Blood Pressure 02/22/24 08/01/24 08/01/24 History
mg-hydrochlorothiazide 12.5 mg
tablet
prednisone 5 mg tablet 5 mg PO DAILYPRN PRN joint pain 02/22/24 08/01/24 08/01/24 History
simvastatin 20 mg tablet 20 mg PO HS Anti-Inflammatory 02/22/24 08/01/24 07/31/24 History
therapeutic multivitamin 1 tab PO DAILY Supplement 02/22/24 08/01/24 08/01/24 History
vilazodone 40 mg tablet 40 mg PO DAILY Mental 02/22/24 08/01/24 08/01/24 History
Health/Anxiety
lorazepam 0.5 mg tablet 0.5 mg PO Q4HPRN PRN anxiety #10 03/01/24 08/01/24 07/30/24 Rx
tabs
budesonide 160 mcg-glycopyr 9 2 inh inhalation R BID 07/23/24 08/01/24 08/01/24 History
mcg-formot 4.8 mcg/actuation HFA Lung/Breathing Issues
inhaler (Breztri Aerosphere)
albuterol sulfate 2.5 mg/3 mL 2.5 mg inhalation R QID 08/01/24 08/01/24 08/01/24 History
(0.083 %) solution for nebulization Lung/Breathing Issues
albuterol sulfate 90 mcg/actuation 2 puff inhalation R Q4HPRN PRN sob 08/01/24 08/01/24 Unknown History
aerosol inhaler
fluticasone fur. 100 mcg-umeclid 1 inh inhalation R DAILY 08/01/24 08/01/24 Unknown History
62.5 mcg-vilant 25 mcg Lung/Breathing Issues
inhalat.powder (Trelegy Ellipta)
inhalational spacing device 08/01/24 08/01/24 Unknown History
(Kiran Saunders [facility] spacer)
Review of Systems
Vitals / Labs / Diagnostic Testing
Vital Signs
Temp Pulse Resp BP Pulse Ox
98.1 F 115 16 123/105 97
08/02/24 11:35 08/02/24 14:47 08/02/24 14:47 08/02/24 14:16 08/02/24 14:47
Lab Data
08/02/24 04:28
08/02/24 04:28
Microbiology
08/01/24 14:23 Blood/Venous Blood Culture - Preliminary
No Growth in 24 hours- Final report to follow
08/01/24 14:18 Blood/Venous Blood Culture - Preliminary
No Growth in 24 hours- Final report to follow
08/02/24 04:28 Nose Nasal Screen MRSA (PCR) - Final
08/01/24 14:18 Nasal Swab Influenza Types A & B (BRI) - Final
Negative for Influenza A & B, NAAT
Negative results must be combined with clinical observations
and patient history.
Nucleic Acid Amplification test (NAAT)performed on the
[employer] NOW platform.
Diagnostic Testing:
Physical Exam
-
HEENT: Other (Patient is cachectic with bitemporal muscle wasting)
Cardiovascular: S1/S2
Respiratory: Other (Decreased air entry in the left lower lobe. Rhonchi in the left midlung. No wheezing on exam)
GI: Soft and Non Distended
Neurology: Awake and Alert
Skin: Warm
General: Comfortable
Assessment
-
#1. Acute hypoxic respiratory failure. Most likely acute trigger is left lower lobe pneumonia in the setting of underlying COPD with bibasilar fibrotic changes and bronchiectasis.
-Continue O2 support as needed to keep saturations above 90%
#2. Left lower lobe pneumonia. On review of prior imaging, significant bronchiectatic changes noted with mucous plugging in bilateral lower lobes.
-Continue IV vancomycin and Zosyn as currently ordered
-Add azithromycin 500 mg daily for 3 days to cover for atypical organisms
-Follow-up sputum culture, Legionella and strep pneumo antigen, MRSA screen. Follow-up blood cultures. Influenza and COVID-19 has been negative.
-In view of severity of pneumonia with dense consolidation and hypoxia, add prednisone 40 mg daily for 5 more days
#3. COPD, severe. FEV1 was 1.6 L, 68% of predicted as per pulmonary function testing in April 2024 with severely reduced DLCO. Eosinophil count 0-200
-Continue DuoNeb scheduled 4 times daily
-Hold Trelegy while patient is on scheduled DuoNeb
-Patient is not actively wheezing during my evaluation
-Likely will need home oxygen at discharge
-At discharge, resume Trelegy and as needed albuterol
#4. Bilateral lower lobe bronchiectasis with interstitial fibrotic changes. Patient's lower lobe bronchiectasis appears to be related to traction due to lower lobe mild fibrotic changes. I reviewed the previous x-rays and CT scans and fibrosis
has not progressed much. This is probably related to underlying diagnosis of rheumatoid arthritis. She does not have a typical UIP radiological pattern
-Continue antibiotics as ordered
-Start Mucinex twice a day
-Start 3% normal saline nebulized every 12 hours for airway clearance
-Start flutter valve
-Depending on her clinical response, might need vest therapy
#5. Multiple pulmonary nodules. Previous PET scan has been negative and over the years nodules have stayed stable suggestive of benign etiology.
-Continue follow-up as an outpatient with pulmonary clinic
Other medical diagnoses:
-Rheumatoid arthritis with joint deformities
-Hypertension, hyperlipidemia
-Chronic anemia
-Chronic steroid use due to rheumatoid arthritis
Patient follows up with Dr. Correa at [facility] and will resume follow-up after discharge
I met with patient's daughter at bedside as well as and updated them about the plan of care
Total time spent on this consultation/encounter __74__ minutes which includes review of history, physical exam, medications, laboratory data, personal review of imaging, extensive review of outpatient records, discussion with care team and
respiratory therapy.
Data:
CT CHEST 07/2024: 1. No evidence of pulmonary embolism.
2. Severe left lower lobe pneumonia.
CT CHEST 01/2024: 1.). The stability of the multiple bilateral pulmonary nodules dating back to 08/11/2020 suggests that they are benign
2). COPD with worsening predominantly interstitial fibrosis and bronchiectasis at the lung bases
3). Minimal left pleural effusion
--- NOTE | 2024-08-02 15:09 | CM ---
Patient with Hx sepsis, PNA. O2 4L. BiPAP. Receiving IV Abx. PT recommends skilled rehab.
Attempted to meet with patient who was off the unit.
Met with patient's daughter Mirella Sweet, who lives in [place] (cell [phone]);
the patient resides with her in a 2 story house with 7 outside steps and 2nd floor bedroom.
The patient has been assisted with ADLs by her .
She was ambulatory using her RW or SPC.
The patient has had no energy recently, per the daughter, who clarifies she has been tired and weak for the past 3 weeks
Daughter says patient is recently confused and was more confused yesterday.
Daughter relays that the is her sole caregiver, and he is sometimes impatient with her mother when caring for her.
DME -RW, SPC
VN - none
Currently getting outpatient PT.
SNF - prior [facility] after hip surgery.
PCP - Abena Abad
Pharmacy - [facility]
Discussed PT recommendations and daughter agrees to short term rehab - she says patient had a good experience at [email or web address] and she would like her to go there again if possible. SNF referral placed.
Message to Dr Vallejo; ELFEGO Regalado would be helpful for obtaining SNF auth with managed care plan.
Plan follow up SNF referral.
[2024-08-02] MEDS: LOVENOX 30 MG SC (17:39)
[2024-08-02] MEDS: PLAQUENIL 300 MG PO (17:39)
[2024-08-02] MEDS: ZITHROMAX 500 MG PO (17:44)
[2024-08-02] MEDS: DELTASONE 40 MG PO (17:44)
[2024-08-02] MEDS: SODIUM CHLORIDE 3% FOR INHALATION 1 VIAL INH (19:49)
[2024-08-02] MEDS: LIPITOR 10 MG PO (20:26)
[2024-08-02] MEDS: MUCINEX 600 MG PO (20:26)
[2024-08-02] MEDS: ATIVAN 0.5 MG PO (23:52)
--- NOTE | 2024-08-02 23:55 | PTCARENOTE ---
assumed care of patient. pt is AAOx2-3, forgetful and anxious. pt climbing OOB at start of shift, not using call whiteside, bed alarm off. patient used BSCx1 assist without issues. bed alarm now on. ST with PAC's on the monitor. on 4L 95%, pt did take
off oxygen and oxygen went down to 79% on RA. 4L placed back on patient. educated on importance of wearing oxygen. PRN ativan given per MAR. able to take pills with applesauce and water, some coughing noted. care ongoing.
[2024-08-03] VITALS (15 sets, daily range): BP systolic 96–121; BP diastolic 53–71; PULSE 96; O2SAT 99; BMI 17.4
[2024-08-03] MEDS: ZOSYN 50 IV ×4 (05:12→23:05)
[2024-08-03] MEDS: VANCOCIN HCL 500 MG 100 IV (05:44)
[2024-08-03 06:13] LABS: Hemoglobin 7.4 g/dL (12.0-16.0); Mean Corp Hgb Conc. 29.6 g/dL (33.0-37.0); Mean Corpuscular Hgb 28.5 pg (27.0-31.0); Mean Corpuscular Volume 96.2 fL (81.0-99.0); Mean Platelet Volume 8.6 fL (7.4-10.4); Platelet Count 324 10^3/uL (130-400); Red Cell Dist. Width 22.8 % (11.5-14.5); White Blood Cell Count 14.5 10^3/uL (4.8-10.8)
[2024-08-03 06:31] LABS: Blood Urea Nitrogen 35 mg/dl (7-17); Calcium 8.5 mg/dl (8.4-10.2); Carbon Dioxide 34 mmol/L (22-30); Chloride 99 mmol/L (98-107); Estimated Creatinine Clearance 31 ml/min; Glucose 114 mg/dl (70-99); Sodium 138 mmol/L (135-145); eGFR 57.66
[2024-08-03] MEDS: SODIUM CHLORIDE 3% FOR INHALATION 1 VIAL INH ×2 (07:35→19:17)
[2024-08-03] MEDS: DUONEB 3 ML INH ×4 (07:35→19:17)
--- NOTE | 2024-08-03 07:39 | W.PN.HOSP.TC ---
Addendum entered and electronically signed by Faraz Vallejo MD 08/03/24 13:24:
Non-ischemic myocardial injury
Acute metabolic encephalopathy
Original Note:
Today's Communication/Plan
-
see plan
Assessment / Plan
Assessment / Plan
Gen: remains NAD, AAOx3, appears chronically ill malnourished.
Eyes: EOMI, PERRLA, no scleral icterus.
Neck: supple.
CV: RRR, +S1/S2, no m/r/g.
Resp: bronchial breath sounds in the left base
Abd: +BS, soft, NT, ND
Skin: No rashes.
Neuro: CN 2-12 intact, non-focal.
Psych: Normal mood and affect.
08/01/24 14:23 Blood/Venous Blood Culture - Preliminary
No Growth in 24 hours- Final report to follow
08/01/24 14:18 Blood/Venous Blood Culture - Preliminary
No Growth in 24 hours- Final report to follow
08/02/24 04:28 Nose Nasal Screen MRSA (PCR) - Final
08/01/24 14:18 Nasal Swab Influenza Types A & B (BRI) - Final
Negative for Influenza A & B, NAAT
Negative results must be combined with clinical observations
and patient history.
Nucleic Acid Amplification test (NAAT)performed on the
[employer] NOW platform.
CTA chest 08/01/24:
1. No evidence of pulmonary embolism.
2. Severe left lower lobe pneumonia.
CXR: Left basilar opacification likely representing pneumonia without significant change in comparison to recent prior study. No pneumothorax.
Sepsis and acute hypoxemic respiratory failure due to acute LLL PNA:
-In the setting of severe COPD and B/L lower bronchiectasis with interstitial fibrotic changes
-COVID/Flu NEG
-Leukocytosis with L-shift
-did require 6L NC O2 O/N, then on BIPAP 12/5 with 10L O2, now on 5L NC O2
-continue with Zosyn/Vanco
-s/p IVFs
-BCxs NGTD
-pulm following, started on Prednisone and Azithro
-repeat CXR
Other problems:
COPD, not in acute exac, not on home O2: COPD severe with FEV1 1.6L, 68% predicted, severely reduced DLCO, cont Breztri
Rheumatoid arthritis: Continue Plaquenil
Essential hypertension: Continue Lisinopril, holding home HCTZ
Hyperlipidemia: Continue statin
Chronic anemia: Hb stable
Underweight, likely severe protein calorie malnutrition
Pt's daughter updated at bedside.
FULL/Lovenox
Anticipated Discharge: > 48 hours
Subjective/Interval History
-
Date of Service: August 03, 2024
Objective Data
-
Labs:
Laboratory Results
08/03/24
05:47
WBC 14.5 H
Hgb 7.4 L
Hct 25.0 L
Plt Count 324
Sodium 138
Potassium 4.0
Chloride 99
Carbon Dioxide 34 H
BUN 35 H
Creatinine 1.0
Glucose 114 H
Calcium 8.5
Vital Signs:
Vital Signs
Temp Pulse Resp BP Pulse Ox
98.0 F 97 14 105/55 99
08/03/24 07:29 08/03/24 07:38 08/03/24 07:38 08/03/24 06:00 08/03/24 07:38
I&O
08/02/24 08/03/24 08/04/24
06:59 06:59 06:59
Intake Total 150 / 150 200 / 200
Output Total 550 / 550
Balance -400 / -400 200 / 200
[2024-08-03] MEDS: ZITHROMAX 500 MG PO (08:19)
[2024-08-03] MEDS: ZESTRIL 10 MG PO (08:19)
[2024-08-03] MEDS: DELTASONE 40 MG PO (08:20)
[2024-08-03] MEDS: MUCINEX 600 MG PO ×2 (08:20→19:43)
--- NOTE | 2024-08-03 11:02 | W.PN.PUL3 ---
Today's Communication / Plan
-
-DC IV vancomycin, continue Zosyn and azithromycin
-Follow-up chest x-ray in a.m.
-Start Acapella
Assessment
-
Patient is a very pleasant 79-year-old female with known history of severe COPD, bilateral lower lobe mild fibrotic changes with traction bronchiectasis and pulmonary nodules who presented to the hospital with increasing cough and some confusion
over the last 2 weeks. Patient reportedly had an episode of pneumonia last year in January and required home oxygen which she eventually improved and was taken off supplemental oxygen. Her last 6-minute walk test in the clinic was unremarkable
without any desaturation. Over the last 2 weeks he started having increasing cough with occasional wheezing and small amount of phlegm production. Patient also noted to be increasingly confused and was noted to be hypoxic with pulse ox down to
82%. She was brought to the emergency room for further workup. Imaging in emergency room was suggestive of dense left lower lobe pneumonia. Pulmonary consultation was requested for further input.
#1. Acute hypoxic respiratory failure. Most likely acute trigger is left lower lobe pneumonia in the setting of underlying COPD with bibasilar fibrotic changes and bronchiectasis.
-Continue O2 support as needed to keep saturations above 90%
#2. Left lower lobe pneumonia. On review of prior imaging, significant bronchiectatic changes noted with mucous plugging in bilateral lower lobes.
-Continue IV Zosyn and Azithromycin. MRSA screen negative, Vancomycin stopped
-Continue azithromycin 500 mg daily for 3 days to cover for atypical organisms. QTc 469 today
-Follow-up sputum culture, Legionella and strep pneumo antigen, MRSA screen. Follow-up blood cultures. Influenza and COVID-19 have been negative.
-In view of severity of pneumonia with dense consolidation and hypoxia, continue prednisone 40 mg daily for 5 days
- F/u CXR in AM
#3. COPD, severe. FEV1 was 1.6 L, 68% of predicted as per pulmonary function testing in April 2024 with severely reduced DLCO. Eosinophil count 0-200
-Continue DuoNeb scheduled 4 times daily
-Hold Trelegy while patient is on scheduled DuoNeb
-Patient is not actively wheezing during my evaluation
-Likely will need home oxygen at discharge
-At discharge, resume Trelegy and as needed albuterol
#4. Bilateral lower lobe bronchiectasis with interstitial fibrotic changes. Patient's lower lobe bronchiectasis appears to be related to traction due to lower lobe mild fibrotic changes. I reviewed the previous x-rays and CT scans and fibrosis
has not progressed much. This is probably related to underlying diagnosis of rheumatoid arthritis. She does not have a typical UIP radiological pattern
-Continue antibiotics as ordered
-Continue Mucinex twice a day
-Continue 3% normal saline nebulized every 12 hours for airway clearance
-Start flutter valve
-Depending on her clinical response, might need vest therapy. f/u CXR in AM.
#5. Multiple pulmonary nodules. Previous PET scan has been negative and over the years nodules have stayed stable suggestive of benign etiology.
-Continue follow-up as an outpatient with pulmonary clinic
Other medical diagnoses:
-Rheumatoid arthritis with joint deformities
-Hypertension, hyperlipidemia
-Chronic anemia
-Chronic steroid use due to rheumatoid arthritis
Patient follows up with Dr. Correa at [facility] and will resume follow-up after discharge
I met with patient's daughter at bedside and updated regarding plan of care
Total time spent on this consultation/encounter __32__ minutes which includes review of history, physical exam, medications, laboratory data, personal review of imaging, extensive review of outpatient records, discussion with care team and
respiratory therapy.
Data:
CT CHEST 07/2024: 1. No evidence of pulmonary embolism.
2. Severe left lower lobe pneumonia.
CT CHEST 01/2024: 1.). The stability of the multiple bilateral pulmonary nodules dating back to 08/11/2020 suggests that they are benign
2). COPD with worsening predominantly interstitial fibrosis and bronchiectasis at the lung bases
3). Minimal left pleural effusion
Subjective Data
-
Date of Service:
Date of Service: August 03, 2024
Subjective:
Patient appears to be gradually improving.
Review of Systems
Genitourinary: Other (No new symptoms reported.)
Objective Data
Data Reviewed
Vital Signs / I&O / Oxygen:
Vital Signs
Temp Pulse Resp BP Pulse Ox
98.0 F 94 14 121/62 99
08/03/24 07:29 08/03/24 08:19 08/03/24 07:38 08/03/24 08:19 08/03/24 07:38
Intake and Output
08/02/24 08/03/24 08/04/24
06:59 06:59 06:59
Intake Total 150 / 150 200 / 200
Output Total 550 / 550
Balance -400 / -400 200 / 200
SaO2 99
Nasal Cannula flow liters per 5
minute
Physical Exam
HEENT: Normocephalic
Respiratory: Clear, Rhonchi (Less rhonchi today on exam.) and Non-Labored Respirations
GI: Soft and Non Distended
Neurology: Awake and Alert
Skin: Warm
Labs/Micro/Reports
Lab Data
08/03/24 05:47
08/03/24 05:47
Microbiology
08/02/24 09:30 Nose MRSA Screen - Final
No Methicillin Resistant Staphylococcus aureus isolated.
08/01/24 14:23 Blood/Venous Blood Culture - Preliminary
No Growth in 24 hours- Final report to follow
08/01/24 14:18 Blood/Venous Blood Culture - Preliminary
No Growth in 24 hours- Final report to follow
08/02/24 04:28 Nose Nasal Screen MRSA (PCR) - Final
08/01/24 14:18 Nasal Swab Influenza Types A & B (BRI) - Final
Negative for Influenza A & B, NAAT
Negative results must be combined with clinical observations
and patient history.
Nucleic Acid Amplification test (NAAT)performed on the
[employer] NOW platform.
--- NOTE | 2024-08-03 11:14 | PN.CDI ---
CDI
- -
CDI:
Physician Documentation Request
Admit Date: 08/01/24 17:50
Dear Doctor Genevieve,
Please review the following and provide your response in the progress notes.
Clinical Indicators:
Pt admitted with Sepsis and acute hypoxemic respiratory failure due to acute LLL PNA.
Laboratory Tests
08/01/24
12:25
Troponin I 0.045 H*
Based on the above, could you clarify in the progress notes, the appropriate diagnosis, if significant, that supports the above Lab abnormalities and additional evaluation, monitoring and/or treatment rendered:
Non-ischemic myocardial injury
Insignificant abnormal lab values
Other
Use of terms such as suspected, likely, concern for, or probable (associated with a specific diagnosis that is being evaluated, monitored, or treated as if it exists) are acceptable and can be coded in the inpatient setting, when documented at the
time of discharge.
Thank you,
Nancy Lipscomb RN, BSN
CDI Specialist
[facility]
Please use your independent medical judgment in providing your response.
--- NOTE | 2024-08-03 11:21 | PN.CDI ---
CDI
- -
CDI:
Physician Documentation Request
Admit Date: 08/01/24 17:50
Dear Doctor Genevieve,
Please review the following and provide your response in the progress notes.
Clinical Indicators:
Pt admitted for Sepsis and acute hypoxemic respiratory failure due to acute LLL PNA
ER Note: ' ...presenting with her family members for evaluation of confusion....Family visited her this afternoon and she seemed confused and very weak. Patient was unable to stand.'
08/02 RN Note: '1939 pt anxious, constantly trying to get oob, remains confused. Pt moved closer to nurses station. House PULP BLEACHER aware...2154: Pt given PO ativan per request
Based on the above, could you clarify in the Progress Notes and Discharge Summary which, if any of the following, is the most likely etiology of the confusion/altered mental status.
Encephalopathy - indicate type, such as metabolic, toxic, septic, etc. due to a specific condition such as UTI, PNA etc.
Dementia with acute delirium - indicate type fo dementia, such as Alzheimer's, senile, vascular, Lewy body etc.
Acute Delirium - indicate known or suspected etiology such as postoperative, due to opioids or other drugs etc. Can also indicate unknown or mixed etiologies.
Confusion Only due to ____ (specify known or suspected etiology)
Other
Use of terms such as suspected, likely, concern for, or probable (associated with a specific diagnosis that is being evaluated, monitored, or treated as if it exists) are acceptable and can be coded in the inpatient setting, when documented at the
time of discharge.
Thank you,
Nancy Lipscomb RN, BSN
CDI Specialist
[place] [facility]
Please use your independent medical judgment in providing your response.
[2024-08-03] MEDS: TYLENOL 650 MG PO (12:34)
[2024-08-03] MEDS: ATIVAN 0.5 MG PO (16:09)
--- NOTE | 2024-08-03 16:55 | CM ---
Patient with Dx sepsis, PNA. O2 5L. BIPAP was s/b prn last HS. Receiving Receiving IV & PO Abx. PT recommends skilled rehab. Seen by - steve rutherford.
SNF referrals reviewed - [facility] accepted.
Spoke with patient's daughter Mirella (cell [phone]); provided update that [facility] accepted. Daughter was here today and feels her mother is improving.
Plan [facility] when medically ready.
[2024-08-03] MEDS: LOVENOX 30 MG SC (17:31)
[2024-08-03] MEDS: PLAQUENIL 300 MG PO (17:32)
[2024-08-03] MEDS: LIPITOR 10 MG PO (19:43)
--- NOTE | 2024-08-03 22:18 | PTCARENOTE ---
assumed care of patient. pt is AAOx2-3, forgetful and anxious at times. able to make needs known. VSS. on 5L NC 99%. no complaints of pain. able to turn self in bed. able to take pills with applesauce without issues. pt is NIKOLSKI with bilateral hearing
aids. care ongoing.
[2024-08-04] VITALS (18 sets, daily range): BP systolic 95–125; BP diastolic 48–75; PULSE 87; BMI 17.7
[2024-08-04] MEDS: ZOSYN 50 IV ×4 (05:02→23:47)
[2024-08-04 05:40] LABS: Hematocrit 24.2 % (37.0-47.0); Hemoglobin 7.2 g/dL (12.0-16.0); Mean Corp Hgb Conc. 29.8 g/dL (33.0-37.0); Mean Corpuscular Hgb 28.2 pg (27.0-31.0); Mean Corpuscular Volume 94.9 fL (81.0-99.0); Mean Platelet Volume 8.5 fL (7.4-10.4); Platelet Count 316 10^3/uL (130-400); Red Blood Cell Count 2.55 10^6/uL (4.20-5.40); Red Cell Dist. Width 22.3 % (11.5-14.5); White Blood Cell Count 14.8 10^3/uL (4.8-10.8)
[2024-08-04 05:57] LABS: Blood Urea Nitrogen 40 mg/dl (7-17); Carbon Dioxide 32 mmol/L (22-30); Chloride 98 mmol/L (98-107); Estimated Creatinine Clearance 28 ml/min; Glucose 83 mg/dl (70-99); Potassium 3.8 mmol/L (3.5-5.1); Sodium 136 mmol/L (135-145); eGFR 51.43
[2024-08-04] MEDS: DUONEB 3 ML INH ×3 (07:08→19:41)
[2024-08-04] MEDS: SODIUM CHLORIDE 3% FOR INHALATION 1 VIAL INH ×2 (07:08→19:41)
[2024-08-04] MEDS: ZITHROMAX 500 MG PO (07:54)
[2024-08-04] MEDS: DELTASONE 40 MG PO (07:54)
[2024-08-04] MEDS: MUCINEX 600 MG PO ×2 (07:54→20:11)
[2024-08-04] MEDS: ZESTRIL PO (07:54)
--- NOTE | 2024-08-04 08:01 | W.PN.HOSP.TC ---
Today's Communication/Plan
-
see bold
Assessment / Plan
Assessment / Plan
Gen: NAD, Awake and alert, appears chronically ill malnourished.
Eyes: EOMI, PERRLA, no scleral icterus.
Neck: supple.
CV: RRR, +S1/S2, no m/r/g.
Resp: decreased breath sounds and rales in the left base, rales in the R base
Abd: +BS, soft, NT, ND
Skin: No rashes.
Neuro: CN 2-12 intact, non-focal.
Psych: Normal mood and affect.
08/01/24 14:23 Blood/Venous Blood Culture - Preliminary
No Growth in 48 hours- Final report to follow
08/01/24 14:18 Blood/Venous Blood Culture - Preliminary
No Growth in 48 hours- Final report to follow
08/03/24 11:15 Sputum Gram Stain - Preliminary
08/02/24 09:30 Nose MRSA Screen - Final
No Methicillin Resistant Staphylococcus aureus isolated.
08/02/24 04:28 Nose Nasal Screen MRSA (PCR) - Final
08/01/24 14:18 Nasal Swab Influenza Types A & B (BRI) - Final
Negative for Influenza A & B, NAAT
Negative results must be combined with clinical observations
and patient history.
Nucleic Acid Amplification test (NAAT)performed on the
[employer] platform.
CTA chest 08/01/24:
1. No evidence of pulmonary embolism.
2. Severe left lower lobe pneumonia.
CXR: Left basilar opacification likely representing pneumonia without significant change in comparison to recent prior study. No pneumothorax.
CXR 08/04/24: Similar appearance of the left lower lung opacity consistent with pneumonia.
Sepsis and acute hypoxemic respiratory failure due to acute LLL PNA:
-In the setting of severe COPD and B/L lower bronchiectasis with interstitial fibrotic changes
-COVID/Flu NEG
-Leukocytosis with L-shift on admission
-did require 6L NC O2 O/N, then on BIPAP 12/5 with 10L O2, now on 4L NC O2
-continue with Zosyn (Vanco stopped with MRSA NEG)
-s/p IVFs
-BCxs NGTD
-pulm following, started on Prednisone and Azithro
Chronic anemia:
-Hb dropping
-Fe/TIBC/ferritin unremarkable, retic ct normal (should be high). Transfuse 1U pRBCs.
Other problems:
COPD, not in acute exac, not on home O2: COPD severe with FEV1 1.6L, 68% predicted, severely reduced DLCO, cont Breztri
Rheumatoid arthritis: Continue Plaquenil
Essential hypertension: holding home HCTZ, stop Lisinopril based on current BPs
Hyperlipidemia: Continue statin
Underweight, likely severe protein calorie malnutrition
Pt's sister updated at bedside. Pt's also updated over the phone. RN updated.
FULL/Lovenox
Total time spent on today's encounter was 50 minutes which included time spent in counseling the patient/family regarding diagnosis and treatment plan as listed above, goals of care, and symptom management. Case was discussed with nursing staff,
specialists, and care coordinators/case management. All labs and imaging personally reviewed by me. Remainder the time spent in detailed review of previous records, lab data, imaging, and other medical provider documentation.
Anticipated Discharge: 24 - 48 hours
Subjective/Interval History
-
Date of Service: August 04, 2024
'I feel good!' Currently denies SOB. Denies melena/hematochezia or any other evidence of bleeding.
Objective Data
-
Labs:
Laboratory Results
08/04/24
05:11
WBC 14.8 H
Hgb 7.2 L
Hct 24.2 L
Plt Count 316
Sodium 136
Potassium 3.8
Chloride 98
Carbon Dioxide 32 H
BUN 40 H
Creatinine 1.1 H
Glucose 83
Calcium 9.0
Vital Signs:
Vital Signs
Temp Pulse Resp BP Pulse Ox
97.8 F 95 22 101/55 96
08/04/24 07:44 08/04/24 07:12 08/04/24 07:12 08/04/24 07:54 08/04/24 07:12
I&O
08/03/24 08/04/24 08/05/24
06:59 06:59 06:59
Intake Total 200 / 200 100 / 100
Balance 200 / 200 100 / 100
[2024-08-04 08:49] LABS: Reticulocyte Count 2.6 % (0.4-2.8)
[2024-08-04 08:51] LABS: Iron 63 ug/dl (37-170)
[2024-08-04 09:01] LABS: Percent Saturation 42 % (20-50); Total Iron Binding Capacity 150 ug/dl (265-497)
--- NOTE | 2024-08-04 10:34 | W.PN.PUL3 ---
Today's Communication / Plan
-
-Lower prednisone to 30 mg daily
-Lower DuoNeb to 3 times daily scheduled
-If final sputum culture stays negative, can switch Zosyn to oral Omnicef or Augmentin
Assessment
-
Patient is a very pleasant 79-year-old female with known history of severe COPD, bilateral lower lobe mild fibrotic changes with traction bronchiectasis and pulmonary nodules who presented to the hospital with increasing cough and some confusion
over the last 2 weeks. Patient reportedly had an episode of pneumonia last year in January and required home oxygen which she eventually improved and was taken off supplemental oxygen. Her last 6-minute walk test in the clinic was unremarkable
without any desaturation. Over the last 2 weeks he started having increasing cough with occasional wheezing and small amount of phlegm production. Patient also noted to be increasingly confused and was noted to be hypoxic with pulse ox down to
82%. She was brought to the emergency room for further workup. Imaging in emergency room was suggestive of dense left lower lobe pneumonia. Pulmonary consultation was requested for further input.
#1. Acute hypoxic respiratory failure. Most likely acute trigger is left lower lobe pneumonia in the setting of underlying COPD with bibasilar fibrotic changes and bronchiectasis.
-Continue O2 support as needed to keep saturations above 90%
#2. Left lower lobe pneumonia. On review of prior imaging, significant bronchiectatic changes noted with mucous plugging in bilateral lower lobes.
-Continue IV Zosyn and Azithromycin. MRSA screen negative, Vancomycin stopped. If sputum c/s stays negative, can switch to Oral Omnicef or Augmentin
-Continue azithromycin 500 mg daily for 3 days to cover for atypical organisms. QTc 469
-Follow-up sputum culture, Legionella and strep pneumo antigen, MRSA screen. Follow-up blood cultures. Influenza and COVID-19 have been negative.
-In view of severity of pneumonia with dense consolidation and hypoxia, continue prednisone, dose lowered to 30 mg daily
-Rama in sputum is not significant
#3. COPD, severe. FEV1 was 1.6 L, 68% of predicted as per pulmonary function testing in April 2024 with severely reduced DLCO. Eosinophil count 0-200
-Continue DuoNeb scheduled, lower to tid
-Hold Trelegy while patient is on scheduled DuoNeb
-Patient is not actively wheezing during my evaluation
-Likely will need home oxygen at discharge
-At discharge, resume Trelegy and as needed albuterol
#4. Bilateral lower lobe bronchiectasis with interstitial fibrotic changes. Patient's lower lobe bronchiectasis appears to be related to traction due to lower lobe mild fibrotic changes. I reviewed the previous x-rays and CT scans and fibrosis
has not progressed much. This is probably related to underlying diagnosis of rheumatoid arthritis. She does not have a typical UIP radiological pattern
-Continue antibiotics as ordered
-Continue Mucinex twice a day
-Continue 3% normal saline nebulized every 12 hours for airway clearance
-Start flutter valve
-Depending on her clinical response, might need vest therapy
#5. Multiple pulmonary nodules. Previous PET scan has been negative and over the years nodules have stayed stable suggestive of benign etiology.
-Continue follow-up as an outpatient with pulmonary clinic
Other medical diagnoses:
-Rheumatoid arthritis with joint deformities
-Hypertension, hyperlipidemia
-Chronic anemia
-Chronic steroid use due to rheumatoid arthritis
Patient follows up with Dr. Correa at [facility] and will resume follow-up after discharge
I met with patient's daughter at bedside and updated regarding plan of care
Total time spent on this consultation/encounter __31__ minutes which includes review of history, physical exam, medications, laboratory data, personal review of imaging, extensive review of outpatient records, discussion with care team and
respiratory therapy.
Data:
CT CHEST 07/2024: 1. No evidence of pulmonary embolism.
2. Severe left lower lobe pneumonia.
CT CHEST 01/2024: 1.). The stability of the multiple bilateral pulmonary nodules dating back to 08/11/2020 suggests that they are benign
2). COPD with worsening predominantly interstitial fibrosis and bronchiectasis at the lung bases
3). Minimal left pleural effusion
Subjective Data
-
Date of Service:
Date of Service: August 04, 2024
Subjective:
Patient symptomatically quite improved.
Review of Systems
Genitourinary: Other (All 14 systems reviewed and negative except as stated above in the history of present illness.)
Objective Data
Data Reviewed
Vital Signs / I&O / Oxygen:
Vital Signs
Temp Pulse Resp BP Pulse Ox
97.8 F 95 22 101/55 96
08/04/24 07:44 08/04/24 07:12 08/04/24 07:12 08/04/24 07:54 08/04/24 07:12
Intake and Output
08/03/24 08/04/24 08/05/24
06:59 06:59 06:59
Intake Total 200 / 200 100 / 100
Balance 200 / 200 100 / 100
SaO2 96
Nasal Cannula flow liters per 4
minute
Physical Exam
HEENT: Normocephalic
Respiratory: Clear, Rhonchi (minimal rhonchi on exam) and Non-Labored Respirations
GI: Soft and Non Distended
Neurology: Awake and Alert
Skin: Warm
Labs/Micro/Reports
Lab Data
08/04/24 05:11
08/04/24 05:11
Microbiology
08/03/24 11:15 Sputum Respiratory Culture - Preliminary
Raam albicans
08/03/24 11:15 Sputum Gram Stain - Preliminary
08/03/24 18:52 Urine Legionella Urinary Antigen - Final
Negative for Legionella pneumophila Serogroup 1 antigen.
A negative result does not rule out the possiblity of
Legionella infection due to other serogroups or species of
Legionella. Clinical correlation is recommended.
08/03/24 18:52 Urine Streptococcus pneumoniae Antigen (M - Final
Negative for Streptococcus pneumoniae antigen.
A negative result does not exclude infection with
Streptococcus pneumoniae. Clinical correlation is
recommended.
08/01/24 14:23 Blood/Venous Blood Culture - Preliminary
No Growth in 48 hours- Final report to follow
08/01/24 14:18 Blood/Venous Blood Culture - Preliminary
No Growth in 48 hours- Final report to follow
08/02/24 09:30 Nose MRSA Screen - Final
No Methicillin Resistant Staphylococcus aureus isolated.
08/02/24 04:28 Nose Nasal Screen MRSA (PCR) - Final
08/01/24 14:18 Nasal Swab Influenza Types A & B (BRI) - Final
Negative for Influenza A & B, NAAT
Negative results must be combined with clinical observations
and patient history.
Nucleic Acid Amplification test (NAAT)performed on the
[employer] platform.
--- NOTE | 2024-08-04 15:49 | PTCARENOTE ---
pt downgraded to med surg. transferring to room 317. report given to [place]. one unit prbcs infusing without s/s reaction.
[2024-08-04] MEDS: LOVENOX 30 MG SC (17:33)
[2024-08-04] MEDS: PLAQUENIL 300 MG PO (17:33)
[2024-08-04] MEDS: LIPITOR 10 MG PO (21:13)
[2024-08-04] MEDS: ATIVAN 0.5 MG PO (21:15)
[2024-08-05 00:57] VITALS: BP 120/61
[2024-08-05] MEDS: ZOSYN 50 IV (05:31)
--- NOTE | 2024-08-05 05:53 | PTCARENOTE ---
Pt slept well overnight. No issues to report. Vital signs stable. Pt remains on 3 LO2 NC. Bed alarm in place. Pt using call whiteside appropriately to use bathroom. No changes in assessment noted at this time. Will continue to monitor.
[2024-08-05 06:41] LABS: Hematocrit 30.6 % (37.0-47.0); Hemoglobin 9.2 g/dL (12.0-16.0); Mean Corp Hgb Conc. 30.1 g/dL (33.0-37.0); Mean Corpuscular Hgb 28.6 pg (27.0-31.0); Mean Platelet Volume 8.7 fL (7.4-10.4); Platelet Count 304 10^3/uL (130-400); Red Blood Cell Count 3.22 10^6/uL (4.20-5.40); Red Cell Dist. Width 21.3 % (11.5-14.5); White Blood Cell Count 11.9 10^3/uL (4.8-10.8)
[2024-08-05 06:56] LABS: Blood Urea Nitrogen 35 mg/dl (7-17); Calcium 9.2 mg/dl (8.4-10.2); Carbon Dioxide 34 mmol/L (22-30); Chloride 97 mmol/L (98-107); Estimated Creatinine Clearance 31 ml/min; Glucose 75 mg/dl (70-99); Potassium 4.1 mmol/L (3.5-5.1); Sodium 136 mmol/L (135-145); eGFR 57.66
[2024-08-05] MEDS: DUONEB 3 ML INH ×3 (07:34→19:12)
[2024-08-05] MEDS: SODIUM CHLORIDE 3% FOR INHALATION 1 VIAL INH ×2 (07:34→19:12)
[2024-08-05 08:00] VITALS: BP 149/70
[2024-08-05] MEDS: MUCINEX 600 MG PO ×2 (08:20→23:01)
[2024-08-05] MEDS: DELTASONE 30 MG PO (08:20)
--- NOTE | 2024-08-05 10:02 | W.PN.HOSP.TC ---
Today's Communication/Plan
-
see bold
Assessment / Plan
Assessment / Plan
Gen: NAD, Awake and alert, appears chronically ill malnourished.
Eyes: EOMI, PERRLA, no scleral icterus.
Neck: supple.
CV: remains RRR, +S1/S2, no m/r/g.
Resp: decreased breath sounds in the left base
Abd: +BS, soft, NT, ND
Skin: No rashes.
Neuro: remains CN 2-12 intact, non-focal.
Psych: Normal mood and affect.
08/03/24 11:15 Sputum Respiratory Culture - Final
Rama albicans
08/03/24 11:15 Sputum Gram Stain - Final
08/01/24 14:23 Blood/Venous Blood Culture - Preliminary
No Growth in 72 hours- Final report to follow
08/01/24 14:18 Blood/Venous Blood Culture - Preliminary
No Growth in 72 hours- Final report to follow
08/03/24 18:52 Urine Legionella Urinary Antigen - Final
Negative for Legionella pneumophila Serogroup 1 antigen.
A negative result does not rule out the possiblity of
Legionella infection due to other serogroups or species of
Legionella. Clinical correlation is recommended.
08/03/24 18:52 Urine Streptococcus pneumoniae Antigen (M - Final
Negative for Streptococcus pneumoniae antigen.
A negative result does not exclude infection with
Streptococcus pneumoniae. Clinical correlation is
recommended.
08/02/24 09:30 Nose MRSA Screen - Final
No Methicillin Resistant Staphylococcus aureus isolated.
08/02/24 04:28 Nose Nasal Screen MRSA (PCR) - Final
08/01/24 14:18 Nasal Swab Influenza Types A & B (BRI) - Final
Negative for Influenza A & B, NAAT
Negative results must be combined with clinical observations
and patient history.
Nucleic Acid Amplification test (NAAT)performed on the
[employer] platform.
CTA chest 08/01/24:
1. No evidence of pulmonary embolism.
2. Severe left lower lobe pneumonia.
CXR: Left basilar opacification likely representing pneumonia without significant change in comparison to recent prior study. No pneumothorax.
CXR 08/04/24: Similar appearance of the left lower lung opacity consistent with pneumonia.
Sepsis and acute hypoxemic respiratory failure due to acute LLL PNA:
-In the setting of severe COPD and B/L lower bronchiectasis with interstitial fibrotic changes
-COVID/Flu NEG
-Leukocytosis with L-shift on admission
-did require 6L NC O2 O/N, then on BIPAP 12/5 with 10L O2, now on 4L NC O2
-continue with Zosyn (Vanco stopped with MRSA NEG)
-s/p IVFs
-BCxs NGTD
-pulm following, started on Prednisone and Azithro
Chronic anemia:
-Hb dropping
-Fe/TIBC/ferritin unremarkable, retic ct normal (should be high)
-s/p 1U pRBCs
Other problems:
COPD, not in acute exac, not on home O2: COPD severe with FEV1 1.6L, 68% predicted, severely reduced DLCO, cont Breztri
Rheumatoid arthritis: Continue Plaquenil
Essential hypertension: holding home HCTZ/Lisinopril based on overall BP trend
Hyperlipidemia: Continue statin
Underweight, likely severe protein calorie malnutrition
Pt's updated at bedside. RN updated.
FULL/Lovenox
Total time spent on today's encounter was 51 minutes which included time spent in counseling the patient/family regarding diagnosis and treatment plan as listed above, goals of care, and symptom management. Case was discussed with nursing staff,
specialists, and care coordinators/case management. All labs and imaging personally reviewed by me. Remainder the time spent in detailed review of previous records, lab data, imaging, and other medical provider documentation.
Anticipated Discharge: 24 - 48 hours
Subjective/Interval History
-
Date of Service: August 05, 2024
Pt upset that she is not eating due to modified diet.
Objective Data
-
Labs:
Laboratory Results
08/05/24
06:20
WBC 11.9 H
Hgb 9.2 L D
Hct 30.6 L
Plt Count 304
Sodium 136
Potassium 4.1
Chloride 97 L
Carbon Dioxide 34 H
BUN 35 H
Creatinine 1.0
Glucose 75
Calcium 9.2
Vital Signs:
Vital Signs
Temp Pulse Resp BP Pulse Ox
97.9 F 84 24 149/70 93
08/05/24 08:00 08/05/24 08:00 08/05/24 08:00 08/05/24 08:00 08/05/24 08:00
I&O
08/04/24 08/05/24 08/06/24
06:59 06:59 06:59
Intake Total 100 / 100 1170 / 1170
Balance 100 / 100 1170 / 1170
--- NOTE | 2024-08-05 10:45 | PTOTSP ---
Dysphagia Therapy
Impression: WFL-mild oral/pharyngeal dysphagia per this assessment and info from video swallow study 08/02. Advanced solids w/ precautions below as family reported patient with poor intake due to dislike of diet.
Recommendation:
1. IDDSI Level 7 Regular, Thin
2. Medications: in puree
3. Strategies: upright to 90 degrees, full supervision, assist as needed, small single sips/bites, slow rate, clear mouth before next sip/bite, avoid mixed consistencies (i.e., cereal w/ milk, soup w/ pieces, fruit cup, medicine w/ water) and/or
strain solids from liquids with these textures
4. Oral care 3x daily
5. Brief dysphagia tx f/u at the acute care level to ensure carry over of compensations and tolerance of diet
--- NOTE | 2024-08-05 11:48 | W.PN.PUL3 ---
Today's Communication / Plan
-
-Discontinue Zosyn, switch to Augmentin twice daily
-Add flutter valve
-Discharge planning
Assessment
-
Patient is a very pleasant 79-year-old female with known history of severe COPD, bilateral lower lobe mild fibrotic changes with traction bronchiectasis and pulmonary nodules who presented to the hospital with increasing cough and some confusion
over the last 2 weeks. Patient reportedly had an episode of pneumonia last year in January and required home oxygen which she eventually improved and was taken off supplemental oxygen. Her last 6-minute walk test in the clinic was unremarkable
without any desaturation. Over the last 2 weeks he started having increasing cough with occasional wheezing and small amount of phlegm production. Patient also noted to be increasingly confused and was noted to be hypoxic with pulse ox down to
82%. She was brought to the emergency room for further workup. Imaging in emergency room was suggestive of dense left lower lobe pneumonia. Pulmonary consultation was requested for further input.
#1. Acute hypoxic respiratory failure. Most likely acute trigger is left lower lobe pneumonia in the setting of underlying COPD with bibasilar fibrotic changes and bronchiectasis.
-Continue O2 support as needed to keep saturations above 90%
#2. Left lower lobe pneumonia. On review of prior imaging, significant bronchiectatic changes noted with mucous plugging in bilateral lower lobes.
-MRSA screen negative, Vancomycin stopped. DC Zosyn, transition to Augmentin
-Completed 3 days of azithromycin 500 mg daily
-Follow-up sputum culture, Legionella and strep pneumo antigen, MRSA screen. Follow-up blood cultures. Influenza and COVID-19 have been negative.
-In view of severity of pneumonia with dense consolidation and hypoxia, continue prednisone, dose lowered to 30 mg daily
-Rama in sputum is not significant
#3. COPD, severe. FEV1 was 1.6 L, 68% of predicted as per pulmonary function testing in April 2024 with severely reduced DLCO. Eosinophil count 0-200
-Continue DuoNeb scheduled, lower to tid
-Hold Trelegy while patient is on scheduled DuoNeb
-Patient is not actively wheezing during my evaluation
-Likely will need home oxygen at discharge
-At discharge, resume Trelegy and as needed albuterol
#4. Bilateral lower lobe bronchiectasis with interstitial fibrotic changes. Patient's lower lobe bronchiectasis appears to be related to traction due to lower lobe mild fibrotic changes. I reviewed the previous x-rays and CT scans and fibrosis
has not progressed much. This is probably related to underlying diagnosis of rheumatoid arthritis. She does not have a typical UIP radiological pattern
-Continue antibiotics as ordered
-Continue Mucinex twice a day
-Continue 3% normal saline nebulized every 12 hours for airway clearance
-Start flutter valve
-Depending on her clinical response, might need vest therapy
#5. Multiple pulmonary nodules. Previous PET scan has been negative and over the years nodules have stayed stable suggestive of benign etiology.
-Continue follow-up as an outpatient with pulmonary clinic
Other medical diagnoses:
-Rheumatoid arthritis with joint deformities
-Hypertension, hyperlipidemia
-Chronic anemia
-Chronic steroid use due to rheumatoid arthritis
Patient follows up with Dr. Correa at [facility] and will resume follow-up after discharge
Total time spent on this consultation/encounter __33__ minutes which includes review of history, physical exam, medications, laboratory data, personal review of imaging, extensive review of outpatient records, discussion with care team and
respiratory therapy.
Data:
CT CHEST 07/2024: 1. No evidence of pulmonary embolism.
2. Severe left lower lobe pneumonia.
CT CHEST 01/2024: 1.). The stability of the multiple bilateral pulmonary nodules dating back to 08/11/2020 suggests that they are benign
2). COPD with worsening predominantly interstitial fibrosis and bronchiectasis at the lung bases
3). Minimal left pleural effusion
Subjective Data
-
Date of Service:
Date of Service: August 05, 2024
Subjective:
Patient comfortably lying in bed, no acute distress. Continues to improve clinically.
Review of Systems
Genitourinary: Other (All 14 systems reviewed and negative except as stated above in the history of present illness.)
Objective Data
Data Reviewed
Vital Signs / I&O / Oxygen:
Vital Signs
Temp Pulse Resp BP Pulse Ox
97.9 F 84 24 149/70 93
08/05/24 08:00 08/05/24 08:00 08/05/24 08:00 08/05/24 08:00 08/05/24 08:00
Intake and Output
08/04/24 08/05/24 08/06/24
06:59 06:59 06:59
Intake Total 100 / 100 1170 / 1170
Balance 100 / 100 1170 / 1170
SaO2 93
Nasal Cannula flow liters per 4
minute
Physical Exam
HEENT: Normocephalic
Respiratory: Clear, Rhonchi (minimal rhonchi on exam) and Non-Labored Respirations
GI: Soft and Non Distended
Neurology: Awake and Alert
Skin: Warm
Labs/Micro/Reports
Lab Data
08/05/24 06:20
08/05/24 06:20
Microbiology
08/03/24 11:15 Sputum Respiratory Culture - Final
Rama albicans
08/03/24 11:15 Sputum Gram Stain - Final
08/01/24 14:23 Blood/Venous Blood Culture - Preliminary
No Growth in 72 hours- Final report to follow
08/01/24 14:18 Blood/Venous Blood Culture - Preliminary
No Growth in 72 hours- Final report to follow
08/03/24 18:52 Urine Legionella Urinary Antigen - Final
Negative for Legionella pneumophila Serogroup 1 antigen.
A negative result does not rule out the possiblity of
Legionella infection due to other serogroups or species of
Legionella. Clinical correlation is recommended.
08/03/24 18:52 Urine Streptococcus pneumoniae Antigen (M - Final
Negative for Streptococcus pneumoniae antigen.
A negative result does not exclude infection with
Streptococcus pneumoniae. Clinical correlation is
recommended.
08/02/24 09:30 Nose MRSA Screen - Final
No Methicillin Resistant Staphylococcus aureus isolated.
08/02/24 04:28 Nose Nasal Screen MRSA (PCR) - Final
[2024-08-05 16:00] VITALS: BP 125/75
[2024-08-05] MEDS: PLAQUENIL 300 MG PO (18:33)
[2024-08-05] MEDS: LOVENOX 30 MG SC (18:34)
[2024-08-05] MEDS: ATIVAN 0.5 MG PO (23:01)
[2024-08-05] MEDS: LIPITOR 10 MG PO (23:01)
[2024-08-05] MEDS: AUGMENTIN 500 MG/125 MG 1 TABLET PO (23:01)
[2024-08-05 23:21] VITALS: BP 126/63
[2024-08-06 07:02] LABS: Hematocrit 29.9 % (37.0-47.0); Hemoglobin 8.9 g/dL (12.0-16.0); Mean Corp Hgb Conc. 29.8 g/dL (33.0-37.0); Mean Corpuscular Hgb 28.7 pg (27.0-31.0); Mean Corpuscular Volume 96.5 fL (81.0-99.0); Mean Platelet Volume 8.5 fL (7.4-10.4); Platelet Count 305 10^3/uL (130-400); White Blood Cell Count 13.1 10^3/uL (4.8-10.8)
[2024-08-06 07:05] VITALS: BP 146/81
[2024-08-06 07:14] LABS: Blood Urea Nitrogen 28 mg/dl (7-17); Calcium 9.1 mg/dl (8.4-10.2); Carbon Dioxide 38 mmol/L (22-30); Chloride 99 mmol/L (98-107); Estimated Creatinine Clearance 39 ml/min; Glucose 75 mg/dl (70-99); Potassium 4.1 mmol/L (3.5-5.1); Sodium 138 mmol/L (135-145); eGFR > 60.00
--- NOTE | 2024-08-06 07:28 | W.PN.HOSP.TC ---
Today's Communication/Plan
-
d/c
Assessment / Plan
Assessment / Plan
Gen: NAD, Awake and alert, appears chronically ill malnourished.
Eyes: EOMI, PERRLA, no scleral icterus.
Neck: supple.
CV: continues to remain RRR, +S1/S2, no m/r/g.
Resp: decreased breath sounds and mild rales in the left base
Abd: +BS, soft, NT, ND
Skin: No rashes.
Neuro: continues to remain CN 2-12 intact, non-focal.
Psych: Normal mood and affect.
08/01/24 14:23 Blood/Venous Blood Culture - Preliminary
No Growth in 4 days- Final report to follow
08/01/24 14:18 Blood/Venous Blood Culture - Preliminary
No Growth in 4 days- Final report to follow
08/03/24 11:15 Sputum Respiratory Culture - Final
Rama albicans
08/03/24 11:15 Sputum Gram Stain - Final
08/03/24 18:52 Urine Legionella Urinary Antigen - Final
Negative for Legionella pneumophila Serogroup 1 antigen.
A negative result does not rule out the possiblity of
Legionella infection due to other serogroups or species of
Legionella. Clinical correlation is recommended.
08/03/24 18:52 Urine Streptococcus pneumoniae Antigen (M - Final
Negative for Streptococcus pneumoniae antigen.
A negative result does not exclude infection with
Streptococcus pneumoniae. Clinical correlation is
recommended.
08/02/24 09:30 Nose MRSA Screen - Final
No Methicillin Resistant Staphylococcus aureus isolated.
08/02/24 04:28 Nose Nasal Screen MRSA (PCR) - Final
08/01/24 14:18 Nasal Swab Influenza Types A & B (BRI) - Final
Negative for Influenza A & B, NAAT
Negative results must be combined with clinical observations
and patient history.
Nucleic Acid Amplification test (NAAT)performed on the
[employer] ID NOW platform.
CTA chest 08/01/24:
1. No evidence of pulmonary embolism.
2. Severe left lower lobe pneumonia.
CXR: Left basilar opacification likely representing pneumonia without significant change in comparison to recent prior study. No pneumothorax.
CXR 08/04/24: Similar appearance of the left lower lung opacity consistent with pneumonia.
Sepsis and acute hypoxemic respiratory failure due to acute LLL PNA:
-In the setting of severe COPD and B/L lower bronchiectasis with interstitial fibrotic changes
-COVID/Flu NEG
-Leukocytosis with L-shift on admission, improved
-did require 6L NC O2 O/N, then on BIPAP / with 10L O2, now on 3L NC O2
-was on Zosyn (Vanco stopped with MRSA NEG), now transitioned to Augmentin through 08/10/24
-s/p IVFs
-BCxs NGTD
-pulm following, was on Prednisone/Azithro, now off both (discussed with pulm)
Chronic anemia:
-Hb was dropping
-Fe/TIBC/ferritin unremarkable, retic ct normal (should be high)
-s/p 1U pRBCs
Other problems:
COPD, not in acute exac, not on home O2: COPD severe with FEV1 1.6L, 68% predicted, severely reduced DLCO, cont Breztri
Rheumatoid arthritis: Continue Plaquenil
Essential hypertension: holding home HCTZ/Lisinopril based on overall BP trend
Hyperlipidemia: Continue statin
Underweight, likely severe protein calorie malnutrition
FULL/Lovenox
Total time spent on today's encounter was 51 minutes which included time spent in counseling the patient/family regarding diagnosis and treatment plan as listed above, goals of care, and symptom management. Case was discussed with nursing staff,
specialists, and care coordinators/case management. All labs and imaging personally reviewed by me. Remainder the time spent in detailed review of previous records, lab data, imaging, and other medical provider documentation.
Medically cleared for discharge. Case management aware.
Anticipated Discharge: Today
Subjective/Interval History
-
Date of Service: August 06, 2024
No new complaints.
Objective Data
-
Labs:
Laboratory Results
08/06/24
06:20
WBC 13.1 H
Hgb 8.9 L
Hct 29.9 L
Plt Count 305
Sodium 138
Potassium 4.1
Chloride 99
Carbon Dioxide 38 H
BUN 28 H
Creatinine 0.8
Glucose 75
Calcium 9.1
Vital Signs:
Vital Signs
Temp Pulse Resp BP Pulse Ox
98.0 F 88 14 126/63 95
08/05/24 23:21 08/05/24 23:21 08/05/24 23:21 08/05/24 23:21 08/05/24 23:58
I&O
08/05/24 08/06/24 08/07/24
06:59 06:59 06:59
Intake Total 1170 / 1170 1140 / 1140
Balance 1170 / 1170 1140 / 1140
[2024-08-06] MEDS: DUONEB INH (07:46)
[2024-08-06] MEDS: SODIUM CHLORIDE 3% FOR INHALATION INH (07:46)
--- NOTE | 2024-08-06 09:04 | W.PN.PUL3 ---
Today's Communication / Plan
-
-Off prednisone now, completed Azithromycin
-Can resume Trelegy at discharge with PRN Albuterol
-Augmentin until 08/10
-Flutter valve for airway clearance
-Outpatient follow up with Pulmonary clinic
-Pulmonary service will sign off, please call as needed
Assessment
-
Patient is a very pleasant 79-year-old female with known history of severe COPD, bilateral lower lobe mild fibrotic changes with traction bronchiectasis and pulmonary nodules who presented to the hospital with increasing cough and some confusion
over the last 2 weeks. Patient reportedly had an episode of pneumonia last year in January and required home oxygen which she eventually improved and was taken off supplemental oxygen. Her last 6-minute walk test in the clinic was unremarkable
without any desaturation. Over the last 2 weeks he started having increasing cough with occasional wheezing and small amount of phlegm production. Patient also noted to be increasingly confused and was noted to be hypoxic with pulse ox down to
82%. She was brought to the emergency room for further workup. Imaging in emergency room was suggestive of dense left lower lobe pneumonia. Pulmonary consultation was requested for further input.
#1. Acute hypoxic respiratory failure. Most likely acute trigger is left lower lobe pneumonia in the setting of underlying COPD with bibasilar fibrotic changes and bronchiectasis.
-Continue O2 support as needed to keep saturations above 90%
#2. Left lower lobe pneumonia. On review of prior imaging, significant bronchiectatic changes noted with mucous plugging in bilateral lower lobes.
-MRSA screen negative, Vancomycin stopped. DC Zosyn, transitioned to Augmentin
-Completed 3 days of azithromycin 500 mg daily
-Follow-up sputum culture, Legionella and strep pneumo antigen, MRSA screen. Follow-up blood cultures. Influenza and COVID-19 have been negative.
-In view of severity of pneumonia with dense consolidation and hypoxia, treated with prednisone, completed
-Rama in sputum is not significant
#3. COPD, severe. FEV1 was 1.6 L, 68% of predicted as per pulmonary function testing in April 2024 with severely reduced DLCO. Eosinophil count 0-200
-Continue DuoNeb scheduled, lowered to tid
-Hold Trelegy while patient is on scheduled DuoNeb
-Patient is not actively wheezing during my evaluation
-Likely will need home oxygen at discharge
-At discharge, resume Trelegy and as needed albuterol
#4. Bilateral lower lobe bronchiectasis with interstitial fibrotic changes. Patient's lower lobe bronchiectasis appears to be related to traction due to lower lobe mild fibrotic changes. I reviewed the previous x-rays and CT scans and fibrosis
has not progressed much. This is probably related to underlying diagnosis of rheumatoid arthritis. She does not have a typical UIP radiological pattern
-Continue antibiotics as ordered
-Continue Mucinex twice a day
-Continue 3% normal saline nebulized every 12 hours for airway clearance
-Start flutter valve
#5. Multiple pulmonary nodules. Previous PET scan has been negative and over the years nodules have stayed stable suggestive of benign etiology.
-Continue follow-up as an outpatient with pulmonary clinic
Other medical diagnoses:
-Rheumatoid arthritis with joint deformities
-Hypertension, hyperlipidemia
-Chronic anemia
-Chronic steroid use due to rheumatoid arthritis
Patient follows up with Dr. Correa at [facility] and will resume follow-up after discharge
Updated primary team about plan of care
Total time spent on this consultation/encounter __42__ minutes which includes review of history, physical exam, medications, laboratory data, personal review of imaging, extensive review of outpatient records, discussion with care team and
respiratory therapy.
Data:
CT CHEST 07/2024: 1. No evidence of pulmonary embolism.
2. Severe left lower lobe pneumonia.
CT CHEST 01/2024: 1.). The stability of the multiple bilateral pulmonary nodules dating back to 08/11/2020 suggests that they are benign
2). COPD with worsening predominantly interstitial fibrosis and bronchiectasis at the lung bases
3). Minimal left pleural effusion
Subjective Data
-
Date of Service:
Date of Service: August 06, 2024
Subjective:
Patient comfortably lying in bed, in no acute distress. Reports that cough is significantly improved. No wheezing
Review of Systems
Genitourinary: Other (All 14 systems reviewed and negative except as stated above in the history of present illness.)
Objective Data
Data Reviewed
Vital Signs / I&O / Oxygen:
Vital Signs
Temp Pulse Resp BP Pulse Ox
98.8 F 99 17 146/81 98
08/06/24 07:05 08/06/24 07:05 08/06/24 07:05 08/06/24 07:05 08/06/24 07:05
Intake and Output
08/05/24 08/06/24 08/07/24
06:59 06:59 06:59
Intake Total 1170 / 1170 1140 / 1140
Balance 1170 / 1170 1140 / 1140
SaO2 98
Nasal Cannula flow liters per 3
minute
Physical Exam
HEENT: Normocephalic
Respiratory: Clear, Rhonchi (minimal rhonchi on exam) and Non-Labored Respirations
GI: Soft and Non Distended
Neurology: Awake and Alert
Skin: Warm
Labs/Micro/Reports
Lab Data
08/06/24 06:20
08/06/24 06:20
Microbiology
08/01/24 14:23 Blood/Venous Blood Culture - Preliminary
No Growth in 4 days- Final report to follow
08/01/24 14:18 Blood/Venous Blood Culture - Preliminary
No Growth in 4 days- Final report to follow
08/03/24 11:15 Sputum Respiratory Culture - Final
Rama albicans
08/03/24 11:15 Sputum Gram Stain - Final
08/03/24 18:52 Urine Legionella Urinary Antigen - Final
Negative for Legionella pneumophila Serogroup 1 antigen.
A negative result does not rule out the possiblity of
Legionella infection due to other serogroups or species of
Legionella. Clinical correlation is recommended.
08/03/24 18:52 Urine Streptococcus pneumoniae Antigen (M - Final
Negative for Streptococcus pneumoniae antigen.
A negative result does not exclude infection with
Streptococcus pneumoniae. Clinical correlation is
recommended.
08/02/24 09:30 Nose MRSA Screen - Final
No Methicillin Resistant Staphylococcus aureus isolated.
[2024-08-06] MEDS: MUCINEX 600 MG PO ×2 (09:42→20:06)
[2024-08-06] MEDS: AUGMENTIN 500 MG/125 MG 1 TABLET PO (09:42)
[2024-08-06] MEDS: DELTASONE 30 MG PO (09:42)
[2024-08-06 11:27] VITALS: BP 127/67
[2024-08-06] MEDS: DUONEB 3 ML INH ×2 (12:03→19:38)
[2024-08-06] MEDS: LASIX 40 MG IV (13:15)
--- NOTE | 2024-08-06 14:29 | CM ---
PT rec SNF
[facility] referral in [facility] (accepted) - will need authorization
Left message with daughter Mirella [phone]
On currently, Echo ordered, CXR done
PLAN: SNF, pending bed availability - will need to obtain auth
--- NOTE | 2024-08-06 14:37 | CON.CAR ---
Addendum entered and electronically signed by Billy Lazo MD 08/06/24 16:27:
I saw and examined the patient.
The SCREW REMOVER's note was reviewed and I agree with the note.
Comment:79-year-old female with hypertension, dyslipidemia, bronchiectasis, COPD, pulmonary nodules, recovered alcoholic, and RA. She was diagnosed with severe left lower lobe pneumonia. She has been treated by pulmonary. She is currently on
Augmentin and off prednisone. We are asked to comment on possible CHF. She is without complaint. She is lying perfectly flat without sob. On exam, she has no JVD, rrr s1/s2, Rales Lt>rt base. Trace edema b/l. Echo with normal lv, normal e'/E and
normal IVC. CXR reviewed with diffuse interstitial findings but CTScan also showed dense infiltrate on left and I suspect interstitial findings on the right(pulmonary read bibasilar fibrotic changes and bronchiectesis). I don't suspect CHF. She
has some mild dependant edema I think will resume with resumption of HCTZ. Treatment of PNA will hopefully lead to resolution of oxygen requirement. BP is up as lisinopril and HCTZ held, will resume.
I will be available on an as needed basis.
Original Note:
Consultation
Consultation Request
Date/Time Consultation Requested: 08/06/2024 12:50
Date/Time Consultation Performed: 08/06/2024 14:15
Requesting Provider: Dr. Vallejo
Performing Provider: CONCHIS Jay for Dr. Lazo
Reason for Consultation: CHF
Medical History
-
Chief Complaint: Hypoxia
History of Present Illness:
Taylor Gonzalez is a 79-year-old female with hypertension, dyslipidemia, bronchiectasis, COPD, pulmonary nodules, recovered alcoholic, and RA who presented to the emergency department on 08/01/2024 with hypoxia. Her family reported SpO2 of 82%. She
endorsed associated shortness of breath and cough. She also had associated confusion. She was diagnosed with severe left lower lobe pneumonia. She has been treated by pulmonary. She is currently on Augmentin and off prednisone. They have signed
off. Cardiology was consulted for heart failure. On exam, she is confused and denies shortness of breath.
Past Medical History
Past Medical History: Cancer (Breast), COPD, HTN, Hypercholesterolemia, Psychiatric (Anxiety) and Other (ILD)
Past Surgical History: Orthopedic
Social History
Tobacco: Former Smoker
Alcohol: Former
Personal:
Living: With Family
Employment: Retired
Family History
Family History: Unable to Obtain
Allergies / Home Medications
Allergy/AdvReac Type Severity Reaction Status Date / Time
cefaclor [From [facility]] Allergy hives, Verified 08/01/24 12:07
flushed
�Medication �Instructions �Recorded �Confirmed �Type
escitalopram oxalate 20 mg tablet 20 mg PO DAILY ##0 02/05/14 08/01/24 Rx
hydroxychloroquine 200 mg tablet 300 mg PO QPM Autoimmune Disorder 04/27/17 08/01/24 History
Lactobac no.2-Bifidobac no.1-S. 1 cap PO DAILY probiotic 02/22/24 08/01/24 History
thermo 112.5 billion cell capsule
(Visbiome)
calcium polycarbophil 625 mg 625 mg PO DAILY Supplement 02/22/24 08/01/24 History
tablet (Fiber (calcium
polycarbophil))
diphenhydramine 25 2 tab PO HS Pain 02/22/24 08/01/24 History
mg-acetaminophen 500 mg tablet
(Tylenol PM Extra Strength)
lisinopril 10 1 tab PO DAILY Blood Pressure 02/22/24 08/01/24 History
mg-hydrochlorothiazide 12.5 mg
tablet
prednisone 5 mg tablet 5 mg PO DAILYPRN PRN joint pain 02/22/24 08/01/24 History
simvastatin 20 mg tablet 20 mg PO HS cholesterol 02/22/24 08/01/24 History
therapeutic multivitamin 1 tab PO DAILY Supplement 02/22/24 08/01/24 History
vilazodone 40 mg tablet 40 mg PO DAILY Mental 02/22/24 08/01/24 History
Health/Anxiety
lorazepam 0.5 mg tablet 0.5 mg PO Q4HPRN PRN anxiety #10 03/01/24 08/01/24 Rx
tabs
budesonide 160 mcg-glycopyr 9 2 inh inhalation R BID 07/23/24 08/01/24 History
mcg-formot 4.8 mcg/actuation HFA Lung/Breathing Issues
inhaler (Breztri Aerosphere)
albuterol sulfate 2.5 mg/3 mL 2.5 mg inhalation R QID 08/01/24 08/01/24 History
(0.083 %) solution for nebulization Lung/Breathing Issues
albuterol sulfate 90 mcg/actuation 2 puff inhalation R Q4HPRN PRN sob 08/01/24 08/01/24 History
aerosol inhaler
fluticasone fur. 100 mcg-umeclid 1 inh inhalation R DAILY 08/01/24 08/01/24 History
62.5 mcg-vilant 25 mcg Lung/Breathing Issues
inhalat.powder (Trelegy Ellipta)
inhalational spacing device 08/01/24 08/01/24 History
(Kiran Saunders [facility] spacer)
Review of Systems
-
History Source: Patient
All other systems: Negative unless noted
Constitutional: No Symptoms
EENT: No Symptoms
Respiratory: No Symptoms
Cardiac: No Symptoms
Abdomen/GI: No Symptoms
: No Symptoms
Musculoskeletal: No Symptoms
Skin: No Symptoms
Neurological: No Symptoms
Endocrine: No Symptoms
Hematologic/Lymphatic: No Symptoms
Physical Exam
Vital Signs
Temp Pulse Resp BP Pulse Ox
98.8 F 99 17 146/81 97
08/06/24 07:05 08/06/24 07:05 08/06/24 07:05 08/06/24 07:05 08/06/24 14:01
Lab Results
08/06/24 06:20
08/06/24 06:20
Troponin I 0.045 ng/ml H* 08/01/24 12:25
Eum-N-Ntmohfgzxzb Pept 6660 pg/ml 08/01/24 12:25
Physical Exam
General: Well Developed, Well Nourished, No Apparent Distress and Comfortable
HEENT: Normocephalic, Anicteric and Moist Mucous Membranes
Respiratory: Other (coarse)
Cardiac: S1/S2, Regular Rhythm and Peripheral Edema (+1 LE)
Breast: Deferred by me
GI: Soft, Non Tender, Non Distended and Normal Bowel Sounds
Rectal: Deferred by Provider
Genito-urinary: No Costovertebral Tender
Musculoskeletal: No Cyanosis
Skin: Warm and Dry
Neuro: Awake and Alert
Hematologic/Lymphatic: No Lymphadenopathy
Psych: Confused
Impression / Plan
-
I/P: 79F with hypertension, dyslipidemia, bronchiectasis, COPD, pulmonary nodules, recovered alcoholic, and RA who presented to the emergency department on with hypoxia. Cardiology consulted for heart failure.
Acute hypoxemic respiratory failure, in the setting of severe left lower lobe pneumonia
- Weaned down to 3 L nasal cannula
- Pulmonary signed off
Pleural effusions
- CXR with cardiomegaly and small pleural effusions
- proBNP 6660 on admission -> 2260 this morning without intervention
- No JVP
Hypertension
- Blood pressures have been soft and she is now off lisinopril�HCTZ 10-12.5mg
- BP improved
Confusion
- Her ocjsrq-bg-qtr is at the bedside and reports this is a newer finding and appears to be worsening
Dyslipidemia, on simvastatin
COPD, severe, not in acute exacerbation
Pulmonary nodules, PET as an outpatient per pulmonary
RA, on Plaquenil
Underweight, BMI 17
[2024-08-06 15:05] VITALS: BP 151/79
[2024-08-06 15:20] LABS: NT-proBNP 2260 pg/ml
[2024-08-06] MEDS: PLAQUENIL 300 MG PO (17:38)
[2024-08-06] MEDS: ZESTRIL 10 MG PO (17:38)
[2024-08-06] MEDS: ORETIC 12.5 MG PO (17:39)
[2024-08-06] MEDS: LOVENOX 30 MG SC (17:39)
[2024-08-06] MEDS: SODIUM CHLORIDE 3% FOR INHALATION 1 VIAL INH (19:38)
[2024-08-06] MEDS: AUGMENTIN 875 MG/125 MG 1 TABLET PO (20:06)
[2024-08-06] MEDS: LIPITOR 10 MG PO (21:21)
[2024-08-06 23:00] VITALS: BP 136/67
[2024-08-07 07:32] LABS: Hematocrit 33.2 % (37.0-47.0); Mean Corp Hgb Conc. 30.1 g/dL (33.0-37.0); Mean Corpuscular Hgb 28.3 pg (27.0-31.0); Mean Corpuscular Volume 94.1 fL (81.0-99.0); Mean Platelet Volume 8.4 fL (7.4-10.4); Platelet Count 327 10^3/uL (130-400); Red Blood Cell Count 3.53 10^6/uL (4.20-5.40); Red Cell Dist. Width 20.7 % (11.5-14.5); White Blood Cell Count 12.5 10^3/uL (4.8-10.8)
[2024-08-07] MEDS: DUONEB 3 ML INH ×3 (07:37→19:58)
[2024-08-07] MEDS: SODIUM CHLORIDE 3% FOR INHALATION 1 VIAL INH ×2 (07:37→19:58)
[2024-08-07 07:58] VITALS: BP 100/56
[2024-08-07] MEDS: ZESTRIL 10 MG PO (08:07)
[2024-08-07] MEDS: ORETIC 12.5 MG PO (08:07)
[2024-08-07] MEDS: MUCINEX 600 MG PO ×2 (08:07→21:18)
[2024-08-07] MEDS: AUGMENTIN 875 MG/125 MG 1 TABLET PO (08:08)
[2024-08-07 08:10] LABS: Blood Urea Nitrogen 25 mg/dl (7-17); Calcium 8.9 mg/dl (8.4-10.2); Chloride 92 mmol/L (98-107); Estimated Creatinine Clearance 39 ml/min; Glucose 79 mg/dl (70-99); Potassium 4.4 mmol/L (3.5-5.1); Sodium 135 mmol/L (135-145); eGFR > 60.00
[2024-08-07 08:22] LABS: Carbon Dioxide 39 mmol/L (22-30)
[2024-08-07] MEDS: PEPCID 20 MG PO (09:24)
[2024-08-07] MEDS: ATIVAN 0.5 MG PO ×2 (10:34→21:18)
--- NOTE | 2024-08-07 12:28 | W.PN.HOSP.TC ---
Today's Communication/Plan
-
ID eval
Meropenem
Add Lidoderm patch for Pleurisy
Assessment / Plan
Assessment / Plan
08/01/24 14:23 Blood/Venous Blood Culture - Preliminary
No Growth in 4 days- Final report to follow
08/01/24 14:18 Blood/Venous Blood Culture - Preliminary
No Growth in 4 days- Final report to follow
08/03/24 11:15 Sputum Respiratory Culture - Final
Rama albicans
08/03/24 11:15 Sputum Gram Stain - Final
08/03/24 18:52 Urine Legionella Urinary Antigen - Final
Negative for Legionella pneumophila Serogroup 1 antigen.
A negative result does not rule out the possiblity of
Legionella infection due to other serogroups or species of
Legionella. Clinical correlation is recommended.
08/03/24 18:52 Urine Streptococcus pneumoniae Antigen (M - Final
Negative for Streptococcus pneumoniae antigen.
A negative result does not exclude infection with
Streptococcus pneumoniae. Clinical correlation is
recommended.
08/02/24 09:30 Nose MRSA Screen - Final
No Methicillin Resistant Staphylococcus aureus isolated.
08/02/24 04:28 Nose Nasal Screen MRSA (PCR) - Final
08/01/24 14:18 Nasal Swab Influenza Types A & B (BRI) - Final
Negative for Influenza A & B, NAAT
Negative results must be combined with clinical observations
and patient history.
Nucleic Acid Amplification test (NAAT)performed on the
[employer] ID NOW platform.
CTA chest 08/01/24:
1. No evidence of pulmonary embolism.
2. Severe left lower lobe pneumonia.
79-year-old female with cough and confusion
Echo 08/06/2024-normal biventricular size and systolic function. No valvular disease
CT chest- 08/07/24- There is increased extensive consolidation throughout the left lower lobe as well as nodular opacities in the right lower lobe consistent with worsening multifocal pneumonia. There are multiple gas containing foci within the left
lower lobe which appears slightly increased from prior and likely represent an element of cavitary pneumonia. Additionally there is a 4.7 x 3.1 cm and a 3.4 x 2.3 cm gas and fluid containing focus within the left lower lobe which are suspicious for
pulmonary abscesses.
CVS: S1-S2 normal
Chest: Bronchial breath sounds on the left side
Abdomen: Soft, NT / Bowel sounds present
Extremities: No edema
# Severe left lower lobe pneumonia in the setting of severe COPD and bilateral lower lobe bronchiectasis with interstitial fibrotic changes
COVID and influenza negative
Leukocytosis with left shift on admission-improved
Was on 6 L of oxygen then on BiPAP with 10 L of oxygen now down to 4 L nasal cannula
Blood cultures negative
Was on Zosyn , changed to Augmentin
Rpt CT reviewed by me , worse with lung abscess- Consult ID, change AB to Meropenem.
Patient currently off Zithromax and prednisone
Continue Mucinex, 3% saline nebulization, Acapella
# Cardiology evaluation appreciated-no evidence of CHF. HCTZ resumed for lower extremity edema
# Chronic anemia iron studies unremarkable
Status post 1 unit of PRBC
# COPD-severe with FEV1 1.6L, 68% predicted, severely reduced DLCO on Breztri, Trelegy Ellipta as OP.
Not on exacerbation currently.
Holding trilogy while on DuoNeb.
# WILFRIDO resolved
# Multiple pulmonary nodules-PET scan negative in the past-stable since 2020. Outpatient pulmonary follow-up
# Rheumatoid arthritis-continue Plaquenil
# Hypertension-continue lisinopril/HCTZ
# Anxiety and depression-continue Lexapro, Vilazodone and as needed lorazepam
# Hyperlipidemia-continue statin
# Chronic steroid use for rheumatoid arthritis
# Underweight with severe protein calorie malnutrition
# History of left breast cancer with history of lumpectomy and radiation 1993
# History of perforated peptic ulcer-add H2 blockers especially with chronic use of steroids
# Ex-smoker
# DVT prophylaxis on Lovenox
# Full code
D/W Daughter and at bed side
Reviewed CT findings and plan.
Code status re addressed- They will talk to pt and
Anticipated Discharge: > 48 hours
Subjective/Interval History
-
Date of Service: August 07, 2024
Objective Data
-
Labs:
Laboratory Results
08/07/24
07:23
WBC 12.5 H
Hgb 10.0 L
Hct 33.2 L
Plt Count 327
Sodium 135
Potassium 4.4
Chloride 92 L
Carbon Dioxide 39 H
BUN 25 H
Creatinine 0.8
Glucose 79
Calcium 8.9
Vital Signs:
Vital Signs
Temp Pulse Resp BP Pulse Ox
97.7 F 83 20 139/70 94
08/07/24 07:58 08/07/24 08:07 08/07/24 07:58 08/07/24 08:07 08/07/24 07:58
I&O
08/06/24 08/07/24 08/08/24
06:59 06:59 06:59
Intake Total 1140 / 1140 1560 / 1560
Output Total 800 / 800
Balance 1140 / 1140 760 / 760
[2024-08-07] MEDS: STERILE WATER FOR INJECTION 10 ML IV ×2 (13:02→21:19)
[2024-08-07] MEDS: LIDOCAINE 4% PATCH 1 PATCH TOPICAL (13:02)
[2024-08-07] MEDS: MERREM 500 MG IV ×2 (13:02→21:18)
[2024-08-07] MEDS: NON-FORMULARY ITEM 40 MG PO (13:03)
--- NOTE | 2024-08-07 14:36 | W.PN.PUL3 ---
Today's Communication / Plan
-
CT reviewed showing worsening lower lobe disease
May need to perform diagnostic bronchoscopy to determine cause if not responding and not clinically improving
Continue abx and airway clearance for now
Add vest and mucomyst
Assessment
-
Patient is a very pleasant 79-year-old female with known history of severe COPD, bilateral lower lobe mild fibrotic changes with traction bronchiectasis and pulmonary nodules who presented to the hospital with increasing cough and some confusion
over the last 2 weeks. Patient reportedly had an episode of pneumonia last year in January and required home oxygen which she eventually improved and was taken off supplemental oxygen. Her last 6-minute walk test in the clinic was unremarkable
without any desaturation. Over the last 2 weeks he started having increasing cough with occasional wheezing and small amount of phlegm production. Patient also noted to be increasingly confused and was noted to be hypoxic with pulse ox down to
82%. She was brought to the emergency room for further workup. Imaging in emergency room was suggestive of dense left lower lobe pneumonia. Pulmonary consultation was requested for further input.
Acute hypoxic respiratory failure.
Left lower lobe pneumonia.
Acute on chronic SOB
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
R hip fractures s/p cemented bipolar endoprosthesis 02/23/24 s/p mechanical fall
Multiple lung nodules, measuring 3-5mm
s/p Bronchoscopy results 06/12/20: No endobronchial lesions. BAL was performed in both lower lobes and right upper lobe/AFB neg
COPD, severe
Followed by Dr Morrissey, last seen 2020
PFT - FEV1 was 1.26 L or 59% of predicted and previously was 1.50 L or 74% predicted
Cylindrical bronchiectasis RML and lingula
Fibrosis noted on CT, new/progressed
History of tobacco abuse/[id number]-lyca smoking history. Quit around 2009
History of pleural effusion
Interstitial lung disease
Rheumatoid arthritis w/ Immunosuppressed status
History of breast cancer s/p Left lumpectomy and axillary node dissection for stage I left breast carcinoma (1993, radiation/no chemo)
Plan
Most likely acute trigger is left lower lobe pneumonia in the setting of underlying COPD with bibasilar fibrotic changes and bronchiectasis.
Continue O2 support as needed to keep saturations above 90%
On review of prior imaging, significant bronchiectatic changes noted with mucous plugging in bilateral lower lobes.
MRSA screen negative, Vancomycin stopped. DC Zosyn, transitioned to Augmentin
Completed 3 days of azithromycin 500 mg daily
Follow-up sputum culture, Legionella and strep pneumo antigen, MRSA screen. Follow-up blood cultures. Influenza and COVID-19 have been negative.
In view of severity of pneumonia with dense consolidation and hypoxia, treated with prednisone, completed
Rama in sputum is not significant
Repeat CT obtained showing worsening LL disease, may need to perform diagnostic bronchoscopy for evaluation
COPD noted--FEV1 was 1.6 L, 68% of predicted as per pulmonary function testing in April 2024 with severely reduced DLCO. Eosinophil count 0-200
Continue DuoNeb scheduled, lowered to tid
Hold Trelegy while patient is on scheduled DuoNeb
Patient is not actively wheezing during my evaluation
Likely will need home oxygen at discharge
At discharge, resume Trelegy and as needed albuterol
Bilateral lower lobe bronchiectasis with interstitial fibrotic changes. Patient's lower lobe bronchiectasis appears to be related to traction due to lower lobe mild fibrotic changes. I reviewed the previous x-rays and CT scans and fibrosis has not
progressed much. This is probably related to underlying diagnosis of rheumatoid arthritis. She does not have a typical UIP radiological pattern
Continue antibiotics as ordered
Continue Mucinex twice a day
Continue 3% normal saline nebulized every 12 hours for airway clearance
Start flutter valve
Multiple pulmonary nodules. Previous PET scan has been negative and over the years nodules have stayed stable suggestive of benign etiology.
Continue follow-up as an outpatient with pulmonary clinic
Patient follows up with Dr. Correa at [facility] and will resume follow-up after discharge
Updated primary team about plan of care
Data:
CT CHEST 07/2024: 1. No evidence of pulmonary embolism.
2. Severe left lower lobe pneumonia.
CT CHEST 01/2024: 1.). The stability of the multiple bilateral pulmonary nodules dating back to 08/11/2020 suggests that they are benign
2). COPD with worsening predominantly interstitial fibrosis and bronchiectasis at the lung bases
3). Minimal left pleural effusion
Total time spent on this consultation/encounter __45__ minutes which includes review of history, physical exam, medications, laboratory data, personal review of imaging, extensive review of outpatient records, discussion with care team and
respiratory therapy
Subjective Data
-
Date of Service:
Date of Service: August 07, 2024
Chief Complaint: Pulmonary Follow Up
Subjective:
Lethargic, just received ativan
No ROS obtained
Otherwise does not appear in acute distress
Objective Data
Data Reviewed
Vital Signs / I&O / Oxygen:
Vital Signs
Temp Pulse Resp BP Pulse Ox
97.7 F 83 20 139/70 94
08/07/24 07:58 08/07/24 08:07 08/07/24 07:58 08/07/24 08:07 08/07/24 07:58
Intake and Output
08/06/24 08/07/24 08/08/24
06:59 06:59 06:59
Intake Total 1140 / 1140 1560 / 1560
Output Total 800 / 800
Balance 1140 / 1140 760 / 760
SaO2 94
Nasal Cannula flow liters per 4
minute
Physical Exam
General: Comfortable and Other (NAD, thin appearing)
HEENT: Normocephalic, Anicteric and Moist Mucous Membranes
Cardiovascular: S1-S2 and Regular Rhythm
Respiratory: Clear (overall diminished BS at bases) and Non-Labored Respirations
GI: Soft, Non Distended and Non Tender
Neurology: Lethargic (received ativan)
Skin: Warm, Dry and Good Color
Labs/Micro/Reports
Lab Data
08/07/24 07:23
08/07/24 07:23
Microbiology
08/01/24 14:23 Blood/Venous Blood Culture - Final
No Growth - Final Report
08/01/24 14:18 Blood/Venous Blood Culture - Final
No Growth - Final Report
08/03/24 11:15 Sputum Respiratory Culture - Final
Rama albicans
08/03/24 11:15 Sputum Gram Stain - Final
[2024-08-07 15:50] VITALS: BP 159/75
[2024-08-07] MEDS: PLAQUENIL 300 MG PO (18:10)
[2024-08-07] MEDS: LOVENOX 30 MG SC (18:10)
[2024-08-07] MEDS: LIPITOR 10 MG PO (21:18)
[2024-08-07 23:00] VITALS: BP 153/58
[2024-08-08] MEDS: STERILE WATER FOR INJECTION 10 ML IV ×3 (03:49→20:01)
[2024-08-08] MEDS: MERREM 500 MG IV ×3 (03:49→20:01)
[2024-08-08] MEDS: SODIUM CHLORIDE 3% FOR INHALATION 1 VIAL INH ×2 (07:39→19:27)
[2024-08-08] MEDS: DUONEB 3 ML INH ×3 (07:39→19:27)
[2024-08-08 07:58] LABS: Blood Urea Nitrogen 22 mg/dl (7-17); Calcium 8.5 mg/dl (8.4-10.2); Carbon Dioxide 39 mmol/L (22-30); Chloride 91 mmol/L (98-107); Estimated Creatinine Clearance 39 ml/min; Glucose 65 mg/dl (70-99); Hemoglobin 10.2 g/dL (12.0-16.0); Mean Corpuscular Hgb 28.7 pg (27.0-31.0); Mean Corpuscular Volume 95.5 fL (81.0-99.0); Mean Platelet Volume 8.8 fL (7.4-10.4); Platelet Count 361 10^3/uL (130-400); Potassium 3.7 mmol/L (3.5-5.1); Red Blood Cell Count 3.56 10^6/uL (4.20-5.40); Red Cell Dist. Width 20.9 % (11.5-14.5); Sodium 137 mmol/L (135-145); White Blood Cell Count 13.6 10^3/uL (4.8-10.8); eGFR > 60.00
[2024-08-08] MEDS: ORETIC 12.5 MG PO (08:17)
[2024-08-08] MEDS: LEXAPRO 20 MG PO (08:17)
[2024-08-08] MEDS: MUCINEX 600 MG PO ×2 (08:17→20:00)
[2024-08-08] MEDS: ZESTRIL 10 MG PO (08:17)
[2024-08-08] MEDS: PEPCID 20 MG PO (08:18)
[2024-08-08] MEDS: NON-FORMULARY ITEM 40 MG PO (08:19)
[2024-08-08] MEDS: LIDOCAINE 4% PATCH 1 PATCH TOPICAL (08:20)
[2024-08-08 08:29] VITALS: BP 151/79
--- NOTE | 2024-08-08 11:21 | W.PN.PUL3 ---
Today's Communication / Plan
-
Seems more awake, coughing more, more productive sputum noted
Reviewed airway clearance with patient extensively, reviewed plan of care with RT
Will send sputum again today given her new productiveness
Repeat CXR in AM to re-eval
Assessment
-
Patient is a very pleasant 79-year-old female with known history of severe COPD, bilateral lower lobe mild fibrotic changes with traction bronchiectasis and pulmonary nodules who presented to the hospital with increasing cough and some confusion
over the last 2 weeks. Patient reportedly had an episode of pneumonia last year in January and required home oxygen which she eventually improved and was taken off supplemental oxygen. Her last 6-minute walk test in the clinic was unremarkable
without any desaturation. Over the last 2 weeks he started having increasing cough with occasional wheezing and small amount of phlegm production. Patient also noted to be increasingly confused and was noted to be hypoxic with pulse ox down to
82%. She was brought to the emergency room for further workup. Imaging in emergency room was suggestive of dense left lower lobe pneumonia. Pulmonary consultation was requested for further input.
Acute hypoxic respiratory failure.
Left lower lobe pneumonia.
Acute on chronic SOB
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
R hip fractures s/p cemented bipolar endoprosthesis 02/23/24 s/p mechanical fall
Multiple lung nodules, measuring 3-5mm
s/p Bronchoscopy results 06/12/20: No endobronchial lesions. BAL was performed in both lower lobes and right upper lobe/AFB neg
COPD, severe
Followed by Dr Morrissey, last seen 2020
PFT - FEV1 was 1.26 L or 59% of predicted and previously was 1.50 L or 74% predicted
Cylindrical bronchiectasis RML and lingula
Fibrosis noted on CT, new/progressed
History of tobacco abuse/[id number] smoking history. Quit around 2009
History of pleural effusion
Interstitial lung disease
Rheumatoid arthritis w/ Immunosuppressed status
History of breast cancer s/p Left lumpectomy and axillary node dissection for stage I left breast carcinoma (1993, radiation/no chemo)
Plan
Most likely acute trigger is left lower lobe pneumonia in the setting of underlying COPD with bibasilar fibrotic changes and bronchiectasis.
Continue O2 support as needed to keep saturations above 90%
On review of prior imaging, significant bronchiectatic changes noted with mucous plugging in bilateral lower lobes.
MRSA screen negative, Vancomycin stopped. DC Zosyn, transitioned to Augmentin
Completed 3 days of azithromycin 500 mg daily
Follow-up sputum culture, Legionella and strep pneumo antigen, MRSA screen. Follow-up blood cultures. Influenza and COVID-19 have been negative.
In view of severity of pneumonia with dense consolidation and hypoxia, treated with prednisone, completed
Rama in sputum is not significant
Repeat CT obtained showing worsening LL disease, may need to perform diagnostic bronchoscopy for evaluation
We reviewed airway clearance today, reviewed therapies with RT
She is significantly more productive now
Repeat sputum culture today 08/08
Repeat CXR in AM 08/09
COPD noted--FEV1 was 1.6 L, 68% of predicted as per pulmonary function testing in April 2024 with severely reduced DLCO. Eosinophil count 0-200
Continue DuoNeb scheduled, lowered to tid
Hold Trelegy while patient is on scheduled DuoNeb
Patient is not actively wheezing during my evaluation
Likely will need home oxygen at discharge
At discharge, resume Trelegy and as needed albuterol
Bilateral lower lobe bronchiectasis with interstitial fibrotic changes. Patient's lower lobe bronchiectasis appears to be related to traction due to lower lobe mild fibrotic changes. I reviewed the previous x-rays and CT scans and fibrosis has not
progressed much. This is probably related to underlying diagnosis of rheumatoid arthritis. She does not have a typical UIP radiological pattern
Continue antibiotics as ordered
Continue Mucinex twice a day
Continue 3% normal saline nebulized every 12 hours for airway clearance
Start flutter valve
Multiple pulmonary nodules. Previous PET scan has been negative and over the years nodules have stayed stable suggestive of benign etiology.
Continue follow-up as an outpatient with pulmonary clinic
Patient follows up with Dr. Correa at [facility] and will resume follow-up after discharge
Updated primary team about plan of care
Data:
CT CHEST 07/2024: 1. No evidence of pulmonary embolism.
2. Severe left lower lobe pneumonia.
CT CHEST 01/2024: 1.). The stability of the multiple bilateral pulmonary nodules dating back to 08/11/2020 suggests that they are benign
2). COPD with worsening predominantly interstitial fibrosis and bronchiectasis at the lung bases
3). Minimal left pleural effusion
Total time spent on this consultation/encounter __51__ minutes which includes review of history, physical exam, medications, laboratory data, personal review of imaging, extensive review of outpatient records, discussion with care team and
respiratory therapy
Subjective Data
-
Date of Service:
Date of Service: August 08, 2024
Chief Complaint: Pulmonary Follow Up
Subjective:
Better today, able to cough more sputum, yellow/copious
Sitting in chair
Objective Data
Data Reviewed
Vital Signs / I&O / Oxygen:
Vital Signs
Temp Pulse Resp BP Pulse Ox
97.8 F 91 19 151/79 92
08/08/24 08:29 08/08/24 08:29 08/08/24 08:29 08/08/24 08:29 08/08/24 08:29
Intake and Output
08/07/24 08/08/24 08/09/24
06:59 06:59 06:59
Intake Total 1560 / 1560 1440 / 1440
Output Total 800 / 800
Balance 760 / 760 1440 / 1440
SaO2 92
Nasal Cannula flow liters per 4
minute
Physical Exam
General: Comfortable and Other (NAD, thin appearing)
HEENT: Normocephalic, Anicteric and Moist Mucous Membranes
Cardiovascular: S1-S2 and Regular Rhythm
Respiratory: Clear (overall diminished BS at bases), Crackles (new L side) and Non-Labored Respirations
GI: Soft, Non Distended and Non Tender
Neurology: Awake, Alert, Oriented and No Motor Deficits
Skin: Warm, Dry and Good Color
Labs/Micro/Reports
Lab Data
08/08/24 06:18
08/08/24 06:18
Microbiology
08/01/24 14:23 Blood/Venous Blood Culture - Final
No Growth - Final Report
08/01/24 14:18 Blood/Venous Blood Culture - Final
No Growth - Final Report
08/03/24 11:15 Sputum Respiratory Culture - Final
Rama albicans
08/03/24 11:15 Sputum Gram Stain - Final
--- NOTE | 2024-08-08 12:07 | W.PN.HOSP.TC ---
Today's Communication/Plan
-
Meropenem
Wean O2 as tolerated
ID Eval.
Assessment / Plan
Assessment / Plan
08/01/24 14:23 Blood/Venous Blood Culture - Preliminary
No Growth in 4 days- Final report to follow
08/01/24 14:18 Blood/Venous Blood Culture - Preliminary
No Growth in 4 days- Final report to follow
08/03/24 11:15 Sputum Respiratory Culture - Final
Rama albicans
08/03/24 11:15 Sputum Gram Stain - Final
08/03/24 18:52 Urine Legionella Urinary Antigen - Final
Negative for Legionella pneumophila Serogroup 1 antigen.
A negative result does not rule out the possiblity of
Legionella infection due to other serogroups or species of
Legionella. Clinical correlation is recommended.
08/03/24 18:52 Urine Streptococcus pneumoniae Antigen (M - Final
Negative for Streptococcus pneumoniae antigen.
A negative result does not exclude infection with
Streptococcus pneumoniae. Clinical correlation is
recommended.
08/02/24 09:30 Nose MRSA Screen - Final
No Methicillin Resistant Staphylococcus aureus isolated.
08/02/24 04:28 Nose Nasal Screen MRSA (PCR) - Final
08/01/24 14:18 Nasal Swab Influenza Types A & B (BRI) - Final
Negative for Influenza A & B, NAAT
Negative results must be combined with clinical observations
and patient history.
Nucleic Acid Amplification test (NAAT)performed on the
[employer] platform.
CTA chest 08/01/24:
1. No evidence of pulmonary embolism.
2. Severe left lower lobe pneumonia.
79-year-old female with cough and confusion
Echo 08/06/2024-normal biventricular size and systolic function. No valvular disease
CT chest- 08/07/24- There is increased extensive consolidation throughout the left lower lobe as well as nodular opacities in the right lower lobe consistent with worsening multifocal pneumonia. There are multiple gas containing foci within the left
lower lobe which appears slightly increased from prior and likely represent an element of cavitary pneumonia. Additionally there is a 4.7 x 3.1 cm and a 3.4 x 2.3 cm gas and fluid containing focus within the left lower lobe which are suspicious for
pulmonary abscesses.
CVS: S1-S2 normal
Chest: Bronchial breath sounds on the left side
Abdomen: Soft, NT / Bowel sounds present
Extremities: No edema
# Severe left lower lobe pneumonia in the setting of severe COPD and bilateral lower lobe bronchiectasis with interstitial fibrotic changes
COVID and influenza negative
Leukocytosis with left shift on admission-improved
Was on 6 L of oxygen then on BiPAP with 10 L of oxygen now down to 2 L nasal cannula
Blood cultures negative
Was on Zosyn , changed to Augmentin , Now on Meropenam
Rpt CT reviewed by me , worse with lung abscess- Consult ID, change AB to Meropenem.
Patient currently off Zithromax and prednisone
Continue Mucinex, 3% saline nebulization, Acapella
# Cardiology evaluation appreciated-no evidence of CHF. HCTZ resumed for lower extremity edema
# Chronic anemia iron studies unremarkable
Status post 1 unit of PRBC
# COPD-severe with FEV1 1.6L, 68% predicted, severely reduced DLCO on Breztri, Trelegy Ellipta as OP.
Not on exacerbation currently.
Holding trilogy while on DuoNeb.
# WILFRIDO resolved
# Multiple pulmonary nodules-PET scan negative in the past-stable since 2020. Outpatient pulmonary follow-up
# Rheumatoid arthritis-continue Plaquenil
# Hypertension-continue lisinopril/HCTZ
# Anxiety and depression-continue Lexapro, Vilazodone and as needed lorazepam
# Hyperlipidemia-continue statin
# Chronic steroid use for rheumatoid arthritis
# Underweight with severe protein calorie malnutrition
# History of left breast cancer with history of lumpectomy and radiation 1993
# History of perforated peptic ulcer-add H2 blockers especially with chronic use of steroids
# Ex-smoker
# DVT prophylaxis on Lovenox
# Full code
D/W Daughter at bed side
Anticipated Discharge: > 48 hours
Subjective/Interval History
-
Date of Service: August 08, 2024
Objective Data
-
Labs:
Laboratory Results
08/08/24
06:18
WBC 13.6 H
Hgb 10.2 L
Hct 34.0 L
Plt Count 361
Sodium 137
Potassium 3.7
Chloride 91 L
Carbon Dioxide 39 H
BUN 22 H
Creatinine 0.8
Glucose 65 L
Calcium 8.5
Vital Signs:
Vital Signs
Temp Pulse Resp BP Pulse Ox
97.8 F 91 19 151/79 92
08/08/24 08:29 08/08/24 08:29 08/08/24 08:29 08/08/24 08:29 08/08/24 08:29
I&O
08/07/24 08/08/24 08/09/24
06:59 06:59 06:59
Intake Total 1560 / 1560 1440 / 1440
Output Total 800 / 800
Balance 760 / 760 1440 / 1440
--- NOTE | 2024-08-08 15:59 | CON.ID ---
Consultation
-
Date/Time Consultation Requested: 08/08/24 8:41
Date/Time Consultation Performed: 08/08/24 16:00
Requesting Provider: Dr Foley
Performing Provider: Dr Barr
Reason for Consultation: Lung abscess
Chief Complaint / Past History
Chief Complaint
shortness of breath
History of Present Illness
Ms Gonzalez is a 79-year-old female with known history of severe COPD, bronchiectasis and pulmonary nodules, RA on plaquenil who presented here for increasing cough and some confusion over the last 2 weeks. Patient reportedly had an episode of
pneumonia last January. Then over the last 2 weeks she noted increasing cough, small amount of phlegm and occasional wheezing. Presented to the ER
Since arrival here Tmax was 100.6 rectally in the ER with no further T elevations, BP overall stable, wbc count initially 21.5 now 13.6, hgb 10.2, plt 361, L shift was noted on arrival, na 137, cr 0.8, lactic acid 0.8, covid ag negative, 08/01 CT
chest PE study: Severe left lower lobe pneumonia. 08/06 CT chest w/o IV contrast: increased extensive consolidation throughout the left lower lobe as well as nodular opacities in the right lower lobe consistent with worsening multifocal pneumonia.
There are multiple gas containing foci within the left lower lobe which appears slightly increased from prior and likely represent an element of cavitary pneumonia. Additionally there is a 4.7 x 3.1 cm and a 3.4 x 2.3 cm gas and fluid containing
focus within the left lower lobe which are suspicious for pulmonary abscesses. resp culture notable for C albicans only. Patient was on zosyn/azithromycin/vancomycin 08/01-08/05 then transitioned to augmentin 08/05-08/07 then switched to meropenem. ID
is consulted for assistance with management.
Past History
Additional Past Medical History:
COPD Rheumatoid arthritis Essential hypertension Hyperlipidemia
Past Surgical History: None
Allergy History:
cefaclor [From Ceclor] Allergy (Verified 08/01/24 12:07)
hives, flushed
Medications Reviewed: Yes
Social History
Tobacco: Former Smoker
Alcohol: Former
Drug: None
Family History
Family History: Not Pertinent
Review of Systems
Review of Systems
General: Negative Fever or Chills
Vital Signs
Temp Pulse Resp BP Pulse Ox
97.8 F 91 19 151/79 92
08/08/24 08:29 08/08/24 08:29 08/08/24 08:29 08/08/24 08:29 08/08/24 08:29
Physical Exam
Physical Exam
Constitutional: No Acute Distress, Chronically Ill and Cachetic
Cardiovascular: Regular Rate and S1/S2; Negative Murmur or Rub
Pulmonary: Clear and Symmetric; Negative Wheezes, Rales or Rhonchi
Gastrointestinal: Soft, Non Tender, Non Distended and Normal Bowel Sounds
Skin: Warm and Dry; Negative Rash or Jaundice
Lab / Diagnostic Study Results
08/08/24 06:18
08/08/24 06:18
Abs Immat Gran (auto) 0.2 10^3/uL (0-0.05) H 08/01/24 12:25
Absolute Neuts (auto) 19.3 10^3/uL (1.4-6.5) H 08/01/24 12:25
Absolute Lymphs (auto) 0.8 10^3/uL (1.2-3.4) L 08/01/24 12:25
Absolute Monos (auto) 1.0 10^3/uL (0.1-0.6) H 08/01/24 12:25
Absolute Basos (auto) 0.2 10^3/uL (0-0.2) 08/01/24 12:25
Immature Gran % 1.1 % (0-0.5) H 08/01/24 12:25
Neutrophils % 89.8 % (42.2-75.2) H 08/01/24 12:25
Lymphocytes % 3.5 % (20.5-51.1) L 08/01/24 12:25
Monocytes % 4.8 % (1.7-9.3) 08/01/24 12:25
Eosinophils % 0.0 % (0-6) 08/01/24 12:25
Basophils % 0.8 % (0-2) 08/01/24 12:25
Lactic Acid 0.8 mmol/L (0.7-2.0) 08/01/24 14:18
Procalcitonin 0.10 ng/ml (0.0-0.25) 08/06/24 13:11
Microbiology Results
Micro:
08/01/24 14:23 Blood Culture - Final
Blood/Venous No Growth - Final Report
08/01/24 14:18 Blood Culture - Final
Blood/Venous No Growth - Final Report
08/03/24 11:15 Respiratory Culture - Final
Sputum Rama albicans
Gram Stain - Final
08/03/24 18:52 Legionella Urinary Antigen - Final
Urine Negative for Legionella pneumophila Serogroup 1 antigen.
A negative result does not rule out the possiblity of
Legionella infection due to other serogroups or species of
Legionella. Clinical correlation is recommended.
Streptococcus pneumoniae Antigen (M - Final
Negative for Streptococcus pneumoniae antigen.
A negative result does not exclude infection with
Streptococcus pneumoniae. Clinical correlation is
recommended.
08/02/24 09:30 MRSA Screen - Final
Nose No Methicillin Resistant Staphylococcus aureus isolated.
08/02/24 04:28 Nasal Screen MRSA (PCR) - Final
Nose
08/01/24 14:18 Influenza Types A & B (BRI) - Final
Nasal Swab Negative for Influenza A & B, NAAT
Negative results must be combined with clinical observations
and patient history.
Nucleic Acid Amplification test (NAAT)performed on the
[employer] platform.
Assessment / Plan
Pulmonary Abscess
Dysphagia
Severe COPD
Bronchiectasis
RA on chronic prednisone 5 mg PO qday and plaquneil
Cachexia
- will follow up 08/08 sputum - communicated with RN to put sputum cup at the bedside
- 08/03 sputum - C albicans - normal samara
- note consideration of possible bronchoscopy if unable to obtain culture
- baseline ESR and CRP in the AM
- follow up repeat CT scan
- agree with meropenem at present - may consider a course of outpatient IV antibiotics
- was on a 5 day course of prednisone 08/02-08/06
-
[2024-08-08 16:02] VITALS: BP 116/57
[2024-08-08] MEDS: PLAQUENIL 300 MG PO (17:29)
[2024-08-08] MEDS: LOVENOX 30 MG SC (17:31)
[2024-08-08] MEDS: LIPITOR 10 MG PO (20:00)
[2024-08-08] MEDS: ATIVAN 0.5 MG PO (20:04)
[2024-08-08 23:11] VITALS: BP 125/66
[2024-08-09] MEDS: MERREM 500 MG IV ×3 (04:01→21:11)
[2024-08-09] MEDS: STERILE WATER FOR INJECTION 10 ML IV ×3 (04:02→21:11)
[2024-08-09 06:30] VITALS: BMI 17.6
[2024-08-09 06:34] LABS: Hematocrit 31.3 % (37.0-47.0); Hemoglobin 9.5 g/dL (12.0-16.0); Mean Corp Hgb Conc. 30.4 g/dL (33.0-37.0); Mean Corpuscular Volume 95.4 fL (81.0-99.0); Mean Platelet Volume 8.6 fL (7.4-10.4); Platelet Count 331 10^3/uL (130-400); Red Blood Cell Count 3.28 10^6/uL (4.20-5.40); Red Cell Dist. Width 21.1 % (11.5-14.5); White Blood Cell Count 12.2 10^3/uL (4.8-10.8)
[2024-08-09 07:03] LABS: Blood Urea Nitrogen 24 mg/dl (7-17); Calcium 8.4 mg/dl (8.4-10.2); Carbon Dioxide 37 mmol/L (22-30); Chloride 92 mmol/L (98-107); Estimated Creatinine Clearance 39 ml/min; Glucose 74 mg/dl (70-99); Potassium 3.9 mmol/L (3.5-5.1); Sodium 135 mmol/L (135-145); eGFR > 60.00
[2024-08-09] MEDS: DUONEB 3 ML INH ×3 (07:30→19:12)
[2024-08-09] MEDS: SODIUM CHLORIDE 3% FOR INHALATION 1 VIAL INH ×2 (07:30→19:12)
[2024-08-09 07:41] VITALS: BP 127/61
[2024-08-09] MEDS: NON-FORMULARY ITEM 40 MG PO (08:01)
[2024-08-09] MEDS: PEPCID 20 MG PO (08:02)
[2024-08-09] MEDS: ORETIC 12.5 MG PO (08:02)
[2024-08-09] MEDS: LEXAPRO 20 MG PO (08:02)
[2024-08-09] MEDS: MUCINEX 600 MG PO ×2 (08:02→21:10)
[2024-08-09] MEDS: ZESTRIL 10 MG PO (08:02)
[2024-08-09 08:08] LABS: Erythrocyte Sed Rate 84 mm/hour (0-20)
[2024-08-09] MEDS: LIDOCAINE 4% PATCH TOPICAL (08:08)
--- NOTE | 2024-08-09 10:25 | W.PN.HOSP.TC ---
Today's Communication/Plan
-
? Bronch needed/
Wean O2 as tolerated.
Assessment / Plan
Assessment / Plan
08/01/24 14:23 Blood/Venous Blood Culture - Preliminary
No Growth in 4 days- Final report to follow
08/01/24 14:18 Blood/Venous Blood Culture - Preliminary
No Growth in 4 days- Final report to follow
08/03/24 11:15 Sputum Respiratory Culture - Final
Rama albicans
08/03/24 11:15 Sputum Gram Stain - Final
08/03/24 18:52 Urine Legionella Urinary Antigen - Final
Negative for Legionella pneumophila Serogroup 1 antigen.
A negative result does not rule out the possiblity of
Legionella infection due to other serogroups or species of
Legionella. Clinical correlation is recommended.
08/03/24 18:52 Urine Streptococcus pneumoniae Antigen (M - Final
Negative for Streptococcus pneumoniae antigen.
A negative result does not exclude infection with
Streptococcus pneumoniae. Clinical correlation is
recommended.
08/02/24 09:30 Nose MRSA Screen - Final
No Methicillin Resistant Staphylococcus aureus isolated.
08/02/24 04:28 Nose Nasal Screen MRSA (PCR) - Final
08/01/24 14:18 Nasal Swab Influenza Types A & B (BRI) - Final
Negative for Influenza A & B, NAAT
Negative results must be combined with clinical observations
and patient history.
Nucleic Acid Amplification test (NAAT)performed on the
[employer] platform.
CTA chest 08/01/24:
1. No evidence of pulmonary embolism.
2. Severe left lower lobe pneumonia.
79-year-old female with cough and confusion
Echo 08/06/2024-normal biventricular size and systolic function. No valvular disease
CT chest- 08/07/24- There is increased extensive consolidation throughout the left lower lobe as well as nodular opacities in the right lower lobe consistent with worsening multifocal pneumonia. There are multiple gas containing foci within the left
lower lobe which appears slightly increased from prior and likely represent an element of cavitary pneumonia. Additionally there is a 4.7 x 3.1 cm and a 3.4 x 2.3 cm gas and fluid containing focus within the left lower lobe which are suspicious for
pulmonary abscesses.
CVS: S1-S2 normal
Chest: Bronchial breath sounds on the left side
Abdomen: Soft, NT / Bowel sounds present
Extremities: No edema
# Severe left lower lobe pneumonia in the setting of severe COPD and bilateral lower lobe bronchiectasis with interstitial fibrotic changes
COVID and influenza negative
Leukocytosis with left shift on admission-improved
Was on 6 L of oxygen then on BiPAP with 10 L of oxygen now on 2 L
Blood cultures negative
Was on Zosyn , changed to Augmentin , Now on Meropenem
Rpt CT reviewed by me , worse with lung abscess- Consult ID, change AB to Meropenem.
Patient currently off Zithromax and prednisone
Continue Mucinex, 3% saline nebulization, Acapella, Vest
CXR today reviewed by me, no change
# Cardiology evaluation appreciated-no evidence of CHF. HCTZ resumed for lower extremity edema
# Chronic anemia iron studies unremarkable
Status post 1 unit of PRBC
# COPD-severe with FEV1 1.6L, 68% predicted, severely reduced DLCO on Breztri, Trelegy Ellipta as OP.
Not on exacerbation currently.
Holding trilogy while on DuoNeb.
# WILFRIDO resolved
# Multiple pulmonary nodules-PET scan negative in the past-stable since 2020. Outpatient pulmonary follow-up
# Rheumatoid arthritis-continue Plaquenil
# Hypertension-continue lisinopril/HCTZ
# Anxiety and depression-continue Lexapro, Vilazodone and as needed lorazepam
# Hyperlipidemia-continue statin
# Chronic steroid use for rheumatoid arthritis
# Underweight with severe protein calorie malnutrition
# History of left breast cancer with history of lumpectomy and radiation 1993
# History of perforated peptic ulcer-add H2 blockers especially with chronic use of steroids
# Ex-smoker
# DVT prophylaxis on Lovenox
# Full code
D/W at bed side
Anticipated Discharge: > 48 hours
Subjective/Interval History
-
Date of Service: August 09, 2024
Objective Data
-
Labs:
Laboratory Results
08/09/24
06:23
WBC 12.2 H
Hgb 9.5 L
Hct 31.3 L
Plt Count 331
Sodium 135
Potassium 3.9
Chloride 92 L
Carbon Dioxide 37 H
BUN 24 H
Creatinine 0.8
Glucose 74
Calcium 8.4
Vital Signs:
Vital Signs
Temp Pulse Resp BP Pulse Ox
97.7 F 83 18 127/61 94
08/09/24 07:41 08/09/24 08:02 08/09/24 07:41 08/09/24 08:02 08/09/24 07:41
I&O
08/08/24 08/09/24 08/10/24
06:59 06:59 06:59
Intake Total 1440 / 1440 1380 / 1380
Balance 1440 / 1440 1380 / 1380
[2024-08-09] MEDS: ATIVAN 0.5 MG PO ×2 (12:03→21:14)
--- NOTE | 2024-08-09 13:20 | W.PN.PUL3 ---
Today's Communication / Plan
-
Follow sputum culture
Will tentatively plan bronchoscopy on Friday if culture of the phlegm remains negative
Continue meropenem
Continue secretion clearance interventions
Assessment
-
Patient is a very pleasant 79-year-old female with known history of severe COPD, bilateral lower lobe mild fibrotic changes with traction bronchiectasis and pulmonary nodules who presented to the hospital with increasing cough and some confusion
over the last 2 weeks. Patient reportedly had an episode of pneumonia last year in January and required home oxygen which she eventually improved and was taken off supplemental oxygen. Her last 6-minute walk test in the clinic was unremarkable
without any desaturation. Over the last 2 weeks he started having increasing cough with occasional wheezing and small amount of phlegm production. Patient also noted to be increasingly confused and was noted to be hypoxic with pulse ox down to
82%. She was brought to the emergency room for further workup. Imaging in emergency room was suggestive of dense left lower lobe pneumonia. Pulmonary consultation was requested for further input.
Acute hypoxic respiratory failure.
Left lower lobe pneumonia.
Acute on chronic SOB
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
R hip fractures s/p cemented bipolar endoprosthesis 02/23/24 s/p mechanical fall
Multiple lung nodules, measuring 3-5mm
s/p Bronchoscopy results 06/12/20: No endobronchial lesions. BAL was performed in both lower lobes and right upper lobe/AFB neg
COPD, severe
Followed by Dr Morrissey, last seen 2020
PFT - FEV1 was 1.26 L or 59% of predicted and previously was 1.50 L or 74% predicted
Cylindrical bronchiectasis RML and lingula
Fibrosis noted on CT, new/progressed
History of tobacco abuse/[id number] smoking history. Quit around 2009
History of pleural effusion
Interstitial lung disease
Rheumatoid arthritis w/ Immunosuppressed status
History of breast cancer s/p Left lumpectomy and axillary node dissection for stage I left breast carcinoma (1993, radiation/no chemo)
Plan
Most likely acute trigger is left lower lobe pneumonia in the setting of underlying COPD with bibasilar fibrotic changes and bronchiectasis.
Initially admitted on 08/01/2024 has been on antibiotics.
Chronically immunosuppressed
Mild persistent leukocytosis
Remains afebrile.
-
CT chest 08/06/2024: Reviewed
Increase extensive consolidation throughout left lower lobe as well as nodular opacities in the right lower lobe consistent with worsening multifocal pneumonia. There are multiple gas containing foci within the left lower lobe increased compared to
prior. Cavitary pneumonia/lung abscess.
There is a 4.7 X3.1X 3.4 gas and fluid containing focus within the left lower low suspicion for pulmonary abscess.
New small right pleural effusion.
-
Repeat chest x-ray 08/09/2024: Reviewed-Unchanged left lower lobe infiltrate/left sided loss of volume.
-
MRSA screen negative, Vancomycin stopped. DC Zosyn, transitioned to Augmentin
Completed 3 days of azithromycin 500 mg daily
Meropenem per infectious disease.D#3
-
Negative microbiologically other than the sputum with Rama.
Negative Legionella antibody
Negative for streptococcal antibody
Negative MRSA screen
Repeated sputum culture 08/09/2023: Pending.
If there is no specific organism isolated then bronchoscopy will be planned for Friday morning.
-
Continue secretion clearance interventions:
She is significantly more productive now
Continue Mucinex twice a day
Continue 3% normal saline nebulized every 12 hours for airway clearance
Mucomyst nebulized as needed
flutter valve
VEST bid
-
COPD noted--FEV1 was 1.6 L, 68% of predicted as per pulmonary function testing in April 2024 with severely reduced DLCO. Eosinophil count 0-200
Continue DuoNeb scheduled, lowered to tid
Hold Trelegy while patient is on scheduled DuoNeb
Patient is not actively wheezing.
Likely will need home oxygen at discharge
At discharge, resume Trelegy and as needed albuterol
Bilateral lower lobe bronchiectasis with interstitial fibrotic changes. Patient's lower lobe bronchiectasis appears to be related to traction due to lower lobe mild fibrotic changes. I reviewed the previous x-rays and CT scans and fibrosis has not
progressed much. This is probably related to underlying diagnosis of rheumatoid arthritis. She does not have a typical UIP radiological pattern
-
Multiple pulmonary nodules. Previous PET scan has been negative and over the years nodules have stayed stable suggestive of benign etiology.
Continue follow-up as an outpatient with pulmonary clinic
Patient follows up with Dr. Correa at [facility] and will resume follow-up after discharge
Updated primary team about plan of care
Data:
CT CHEST 07/2024: 1. No evidence of pulmonary embolism.
2. Severe left lower lobe pneumonia.
CT CHEST 01/2024: 1.). The stability of the multiple bilateral pulmonary nodules dating back to 08/11/2020 suggests that they are benign
2). COPD with worsening predominantly interstitial fibrosis and bronchiectasis at the lung bases
3). Minimal left pleural effusion
Total time spent on this consultation/encounter __51__ minutes which includes review of history, physical exam, medications, laboratory data, personal review of imaging, extensive review of outpatient records, discussion with care team and
respiratory therapy
Subjective Data
-
Date of Service:
Date of Service: August 09, 2024
Chief Complaint: Pulmonary Follow Up (Severe pneumonia)
Subjective:
No new complaints overnight
Afebrile
Review of Systems
General: Fever (n)
Cardiopulmonary: Dyspnea (none at rest)
GI: Abdominal Pain (n) and Nausea (n)
Neuro: Dizziness (n)
Objective Data
Data Reviewed
Vital Signs / I&O / Oxygen:
Vital Signs
Temp Pulse Resp BP Pulse Ox
97.7 F 83 18 127/61 94
08/09/24 07:41 08/09/24 08:02 08/09/24 07:41 08/09/24 08:02 08/09/24 07:41
Intake and Output
08/08/24 08/09/24 08/10/24
06:59 06:59 06:59
Intake Total 1440 / 1440 1380 / 1380
Balance 1440 / 1440 1380 / 1380
SaO2 94
Nasal Cannula flow liters per 2
minute
Physical Exam
General: Comfortable, Other (NAD, thin appearing) and Other (Cachectic)
HEENT: Normocephalic, Anicteric and Moist Mucous Membranes
Cardiovascular: S1-S2 and Regular Rhythm
Respiratory: Clear (overall diminished BS at bases), Crackles (new L side) and Non-Labored Respirations
GI: Soft, Non Distended and Non Tender
Neurology: Awake, Alert, Oriented and No Motor Deficits
Skin: Warm, Dry and Good Color
Labs/Micro/Reports
Lab Data
08/09/24 06:23
08/09/24 06:23
Microbiology
08/01/24 14:23 Blood/Venous Blood Culture - Final
No Growth - Final Report
08/01/24 14:18 Blood/Venous Blood Culture - Final
No Growth - Final Report
--- NOTE | 2024-08-09 13:40 | CM ---
Spoke with patient bedside.
Patient interested in [facility] when medically stable.
PT/OT updates needed.
continues with oxygen needs. (new)
Patient will require a skilled authorization.
Spouse can transport per patient.
Plan: skilled rehab once medically stable.
[2024-08-09 15:08] VITALS: BP 127/56; PULSE 86; PULSE 88; O2SAT 97
[2024-08-09 15:22] VITALS: BP 127/56
--- NOTE | 2024-08-09 15:49 | W.PN.ID1 ---
Date of Service
Date of Service: August 09, 2024
Today's Communication
- will follow up 08/08 sputum
- 08/03 sputum - C albicans - normal samara
- note consideration of possible bronchoscopy if unable to obtain culture
Assessment / Plan
Pulmonary Abscess
Dysphagia
Severe COPD
Bronchiectasis
RA on chronic prednisone 5 mg PO qday and plaquneil
Cachexia
- will follow up 08/08 sputum
- 08/03 sputum - C albicans - normal samara
- note consideration of possible bronchoscopy if unable to obtain culture
- baseline ESR and CRP
- follow up repeat CT scan
- agree with meropenem at present - may consider a course of outpatient IV antibiotics
- was on a 5 day course of prednisone 08/02-08/06
-
Chief Complaint
-: Pneumonia and Other (Pulmonary abscess)
Subjective / Review of Systems
afebrile
bp stable
Vital Signs / Physical Exam
Vital Signs
Vital Signs
Temp Pulse Resp BP Pulse Ox
98.3 F 88 18 127/56 94
08/09/24 15:22 08/09/24 15:22 08/09/24 15:22 08/09/24 15:22 08/09/24 15:22
Physical Exam
Constitutional: No Acute Distress and Chronically Ill
Cardiovascular: Regular Rate and S1/S2; Negative Murmur or Rub
Pulmonary: Clear and Symmetric; Negative Wheezes or Rales
Gastrointestinal: Soft, Non Tender, Non Distended and Normal Bowel Sounds
Skin: Warm and Dry; Negative Rash or Jaundice
Objective Data
Lab Data
Lab Results
08/09/24 06:23
08/09/24 06:23
ESR 84 mm/hour (0-20) H 08/09/24 06:23
Estimated Creat Clear 39 ml/min 08/09/24 06:23
Lactic Acid 0.8 mmol/L (0.7-2.0) 08/01/24 14:18
Total Bilirubin 0.4 mg/dl (0.2-1.3) 08/01/24 12:25
AST 33 U/L (14-36) 08/01/24 12:25
ALT 25 U/L (0-35) 08/01/24 12:25
Alkaline Phosphatase 136 U/L (38-126) H 08/01/24 12:25
C-Reactive Protein 82.10 mg/L (0.0-10.00) H 08/09/24 06:23
Most recent labs reviewed.
Micro Results:
08/08/24 17:42 Respiratory Culture - Pending
Sputum Gram Stain - Preliminary
08/01/24 14:23 Blood Culture - Final
Blood/Venous No Growth - Final Report
08/01/24 14:18 Blood Culture - Final
Blood/Venous No Growth - Final Report
08/03/24 11:15 Respiratory Culture - Final
Sputum Rama albicans
Gram Stain - Final
08/03/24 18:52 Legionella Urinary Antigen - Final
Urine Negative for Legionella pneumophila Serogroup 1 antigen.
A negative result does not rule out the possiblity of
Legionella infection due to other serogroups or species of
Legionella. Clinical correlation is recommended.
Streptococcus pneumoniae Antigen (M - Final
Negative for Streptococcus pneumoniae antigen.
A negative result does not exclude infection with
Streptococcus pneumoniae. Clinical correlation is
recommended.
08/02/24 09:30 MRSA Screen - Final
Nose No Methicillin Resistant Staphylococcus aureus isolated.
08/02/24 04:28 Nasal Screen MRSA (PCR) - Final
Nose
08/01/24 14:18 Influenza Types A & B (BRI) - Final
Nasal Swab Negative for Influenza A & B, NAAT
Negative results must be combined with clinical observations
and patient history.
Nucleic Acid Amplification test (NAAT)performed on the
[employer] platform.
[2024-08-09 15:57] VITALS: BP 117/58; PULSE 86; O2SAT 95
[2024-08-09] MEDS: PLAQUENIL 300 MG PO (18:19)
[2024-08-09] MEDS: LOVENOX 30 MG SC (18:20)
[2024-08-09] MEDS: LIPITOR 10 MG PO (21:10)
[2024-08-09 23:00] VITALS: BP 144/68
[2024-08-10] MEDS: STERILE WATER FOR INJECTION 10 ML IV ×3 (04:28→20:51)
[2024-08-10] MEDS: MERREM 500 MG IV ×3 (04:28→20:51)
[2024-08-10 05:47] VITALS: BMI 17.9
[2024-08-10] MEDS: DUONEB 3 ML INH ×3 (07:14→19:45)
[2024-08-10] MEDS: SODIUM CHLORIDE 3% FOR INHALATION 1 VIAL INH ×2 (07:14→19:45)
[2024-08-10 07:28] VITALS: BP 119/55
[2024-08-10] MEDS: NON-FORMULARY ITEM 40 MG PO (07:47)
[2024-08-10] MEDS: ORETIC 12.5 MG PO (07:48)
[2024-08-10] MEDS: LIDOCAINE 4% PATCH TOPICAL (07:48)
[2024-08-10] MEDS: LEXAPRO 20 MG PO (07:48)
[2024-08-10] MEDS: PEPCID 20 MG PO (07:48)
[2024-08-10] MEDS: ZESTRIL 10 MG PO (07:48)
[2024-08-10] MEDS: MUCINEX 600 MG PO ×2 (07:48→20:52)
[2024-08-10 09:45] LABS: Hematocrit 32.1 % (37.0-47.0); Hemoglobin 9.9 g/dL (12.0-16.0); Mean Corp Hgb Conc. 30.8 g/dL (33.0-37.0); Mean Corpuscular Hgb 29.1 pg (27.0-31.0); Mean Corpuscular Volume 94.4 fL (81.0-99.0); Mean Platelet Volume 8.6 fL (7.4-10.4); Platelet Count 353 10^3/uL (130-400); Red Cell Dist. Width 20.4 % (11.5-14.5); White Blood Cell Count 13.5 10^3/uL (4.8-10.8)
[2024-08-10 10:27] LABS: Blood Urea Nitrogen 21 mg/dl (7-17); Calcium 8.4 mg/dl (8.4-10.2); Carbon Dioxide 36 mmol/L (22-30); Chloride 91 mmol/L (98-107); Estimated Creatinine Clearance 39 ml/min; Glucose 52 mg/dl (70-99); Sodium 133 mmol/L (135-145); eGFR > 60.00
--- NOTE | 2024-08-10 10:31 | PTCARENOTE ---
pt glucose on AM routine labs drawn was 52. Glucose re-checked bedside and is currently 86. Dr Alaina carballo.
[2024-08-10 10:32] LABS: Glucose - Point of Care 86 mg/dl (70-99)
--- NOTE | 2024-08-10 11:00 | W.PN.ID1 ---
Date of Service
Date of Service: August 10, 2024
Today's Communication
- agree with bronchoscopy - will follow up cultures
- agree with meropenem at present - may consider a course of outpatient IV antibiotics
Assessment / Plan
Pulmonary Abscess
Dysphagia
Severe COPD
Bronchiectasis
RA on chronic prednisone 5 mg PO qday and plaquneil
Cachexia
- 08/08 sputum - usual resp samara
- 08/03 sputum - C albicans - normal samara
- agree with bronchoscopy - will follow up cultures
- agree with meropenem at present - may consider a course of outpatient IV antibiotics
- was on a 5 day course of prednisone 08/02-08/06
Chief Complaint
-: Pneumonia and Other (Pulmonary abscess)
Subjective / Review of Systems
afebrile
bp stable
repeat resp culture usual resp samara
agree with plans for bronch
Vital Signs / Physical Exam
Vital Signs
Vital Signs
Temp Pulse Resp BP Pulse Ox
98.1 F 83 18 119/55 94
08/10/24 07:28 08/10/24 07:48 08/10/24 07:28 08/10/24 07:48 08/10/24 07:28
Physical Exam
Constitutional: No Acute Distress and Chronically Ill
Cardiovascular: Regular Rate and S1/S2; Negative Murmur or Rub
Pulmonary: Clear and Symmetric; Negative Wheezes or Rales
Gastrointestinal: Soft, Non Tender, Non Distended and Normal Bowel Sounds
Skin: Warm and Dry; Negative Rash or Jaundice
Objective Data
Lab Data
Lab Results
08/10/24 08:43
08/10/24 08:43
ESR 84 mm/hour (0-20) H 08/09/24 06:23
Estimated Creat Clear 39 ml/min 08/10/24 08:43
Lactic Acid 0.8 mmol/L (0.7-2.0) 08/01/24 14:18
Total Bilirubin 0.4 mg/dl (0.2-1.3) 08/01/24 12:25
AST 33 U/L (14-36) 08/01/24 12:25
ALT 25 U/L (0-35) 08/01/24 12:25
Alkaline Phosphatase 136 U/L (38-126) H 08/01/24 12:25
C-Reactive Protein 82.10 mg/L (0.0-10.00) H 08/09/24 06:23
Most recent labs reviewed.
Micro Results:
08/08/24 17:42 Respiratory Culture - Preliminary
Sputum Usual Respiratory Samara
Gram Stain - Preliminary
08/01/24 14:23 Blood Culture - Final
Blood/Venous No Growth - Final Report
08/01/24 14:18 Blood Culture - Final
Blood/Venous No Growth - Final Report
08/03/24 11:15 Respiratory Culture - Final
Sputum Rama albicans
Gram Stain - Final
08/03/24 18:52 Legionella Urinary Antigen - Final
Urine Negative for Legionella pneumophila Serogroup 1 antigen.
A negative result does not rule out the possiblity of
Legionella infection due to other serogroups or species of
Legionella. Clinical correlation is recommended.
Streptococcus pneumoniae Antigen (M - Final
Negative for Streptococcus pneumoniae antigen.
A negative result does not exclude infection with
Streptococcus pneumoniae. Clinical correlation is
recommended.
08/02/24 09:30 MRSA Screen - Final
Nose No Methicillin Resistant Staphylococcus aureus isolated.
08/02/24 04:28 Nasal Screen MRSA (PCR) - Final
Nose
08/01/24 14:18 Influenza Types A & B (BRI) - Final
Nasal Swab Negative for Influenza A & B, NAAT
Negative results must be combined with clinical observations
and patient history.
Nucleic Acid Amplification test (NAAT)performed on the
[employer] platform.
--- NOTE | 2024-08-10 11:15 | W.PN.PUL3 ---
Today's Communication / Plan
-
Continue with current care
Tentative bronchoscopy tomorrow or depending on the schedule.
Assessment
-
Patient is a very pleasant 79-year-old female with known history of severe COPD, bilateral lower lobe mild fibrotic changes with traction bronchiectasis and pulmonary nodules who presented to the hospital with increasing cough and some confusion
over the last 2 weeks. Patient reportedly had an episode of pneumonia last year in January and required home oxygen which she eventually improved and was taken off supplemental oxygen. Her last 6-minute walk test in the clinic was unremarkable
without any desaturation. Over the last 2 weeks he started having increasing cough with occasional wheezing and small amount of phlegm production. Patient also noted to be increasingly confused and was noted to be hypoxic with pulse ox down to
82%. She was brought to the emergency room for further workup. Imaging in emergency room was suggestive of dense left lower lobe pneumonia. Pulmonary consultation was requested for further input.
Acute hypoxic respiratory failure.
Left lower lobe pneumonia.
Acute on chronic SOB
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
R hip fractures s/p cemented bipolar endoprosthesis 02/23/24 s/p mechanical fall
Multiple lung nodules, measuring 3-5mm
s/p Bronchoscopy results 06/12/20: No endobronchial lesions. BAL was performed in both lower lobes and right upper lobe/AFB neg
COPD, severe
Followed by Dr Morrissey, last seen 2020
PFT - FEV1 was 1.26 L or 59% of predicted and previously was 1.50 L or 74% predicted
Cylindrical bronchiectasis RML and lingula
Fibrosis noted on CT, new/progressed
History of tobacco abuse/[id number] smoking history. Quit around 2009
History of pleural effusion
Interstitial lung disease
Rheumatoid arthritis w/ Immunosuppressed status
History of breast cancer s/p Left lumpectomy and axillary node dissection for stage I left breast carcinoma (1993, radiation/no chemo)
Plan
Most likely acute trigger is left lower lobe pneumonia in the setting of underlying COPD with bibasilar fibrotic changes and bronchiectasis.
Initially admitted on 08/01/2024 has been on antibiotics.
Chronically immunosuppressed
Mild persistent leukocytosis
Remains afebrile.
Continue to have difficulty expectorating.
-
CT chest 08/06/2024:
Increase extensive consolidation throughout left lower lobe as well as nodular opacities in the right lower lobe consistent with worsening multifocal pneumonia. There are multiple gas containing foci within the left lower lobe increased compared to
prior. Cavitary pneumonia/lung abscess.
There is a 4.7 X3.1X 3.4 gas and fluid containing focus within the left lower low suspicion for pulmonary abscess.
New small right pleural effusion.
-
Repeat chest x-ray 08/09/2024:Unchanged left lower lobe infiltrate/left sided loss of volume.
-
MRSA screen negative, Vancomycin stopped. DC Zosyn, transitioned to Augmentin
Completed 3 days of azithromycin 500 mg daily
Meropenem per infectious disease.D#4
-
Negative microbiologically other than the sputum with Rama.
Negative Legionella antibody
Negative for streptococcal antibody
Negative MRSA screen
Repeated sputum culture 08/09/2023: Normal respiratory samara.
-
Given immunosuppression and poor sample of cultures, will perform bronchoscopy for diagnostic and also therapeutic reasons. Has significant loss of volume on the left lung field on chest x-ray.
Would perform on 08/11/2024 if schedule allows. Already contacted the bronchoscopy suite, they will get back to me as there is at least 5 procedures scheduled already for tomorrow.
Remains on supplemental oxygen
N.p.o. after midnight.
Discussed with patient procedures including risk of anesthesia, risk of respiratory failure require mechanical ventilation, less likely risk of bleeding, risk of as well was discussed which is minimal.
She is agreeable to proceed.
-
Continue secretion clearance interventions:
She is significantly more productive now
Continue Mucinex twice a day
Continue 3% normal saline nebulized every 12 hours for airway clearance
Mucomyst nebulized as needed
flutter valve
VEST bid
-
COPD noted--FEV1 was 1.6 L, 68% of predicted as per pulmonary function testing in April 2024 with severely reduced DLCO. Eosinophil count 0-200
Continue DuoNeb scheduled, lowered to tid
Hold Trelegy while patient is on scheduled DuoNeb
Patient is not actively wheezing.
Likely will need home oxygen at discharge
At discharge, resume Trelegy and as needed albuterol
Bilateral lower lobe bronchiectasis with interstitial fibrotic changes. Patient's lower lobe bronchiectasis appears to be related to traction due to lower lobe mild fibrotic changes. I reviewed the previous x-rays and CT scans and fibrosis has not
progressed much. This is probably related to underlying diagnosis of rheumatoid arthritis. She does not have a typical UIP radiological pattern
-
Multiple pulmonary nodules. Previous PET scan has been negative and over the years nodules have stayed stable suggestive of benign etiology.
Continue follow-up as an outpatient with pulmonary clinic
Patient follows up with Dr. Correa at [facility] and will resume follow-up after discharge
Updated primary team about plan of care
Data:
CT CHEST 07/2024: 1. No evidence of pulmonary embolism.
2. Severe left lower lobe pneumonia.
CT CHEST 01/2024: 1.). The stability of the multiple bilateral pulmonary nodules dating back to 08/11/2020 suggests that they are benign
2). COPD with worsening predominantly interstitial fibrosis and bronchiectasis at the lung bases
3). Minimal left pleural effusion
Total time spent on this consultation/encounter __51__ minutes which includes review of history, physical exam, medications, laboratory data, personal review of imaging, extensive review of outpatient records, discussion with care team and
respiratory therapy
Subjective Data
-
Date of Service:
Date of Service: August 10, 2024
Chief Complaint: Pulmonary Follow Up (Severe pneumonia)
Subjective:
Continues to report coughing, difficulty expectorating.
Tolerating diet
Denies shortness of breath at rest
Remains on supplemental oxygen
Denies chills, denies hemoptysis
Review of Systems
General: Fever (n)
Cardiopulmonary: Dyspnea, Dyspnea on Exertion and Cough
GI: Abdominal Pain (n) and Nausea (n)
Neuro: Headache (n)
Objective Data
Data Reviewed
Vital Signs / I&O / Oxygen:
Vital Signs
Temp Pulse Resp BP Pulse Ox
98.1 F 83 18 119/55 94
08/10/24 07:28 08/10/24 07:48 08/10/24 07:28 08/10/24 07:48 08/10/24 07:28
Intake and Output
08/09/24 08/10/24 08/11/24
06:59 06:59 06:59
Intake Total 1380 / 1380 600 / 600
Balance 1380 / 1380 600 / 600
SaO2 94
Nasal Cannula flow liters per 2
minute
Physical Exam
General: Comfortable, Other (NAD, thin appearing) and Other (Cachectic)
HEENT: Normocephalic, Anicteric and Moist Mucous Membranes
Cardiovascular: S1-S2 and Regular Rhythm
Respiratory: Crackles (new L side), Non-Labored Respirations and Other (Bronchial breath sounds on the left)
GI: Soft, Non Distended and Non Tender
Neurology: Awake, Alert, Oriented and No Motor Deficits
Skin: Warm, Dry and Good Color
Labs/Micro/Reports
Lab Data
08/10/24 08:43
08/10/24 08:43
Microbiology
08/08/24 17:42 Sputum Respiratory Culture - Preliminary
Usual Respiratory Samara
08/08/24 17:42 Sputum Gram Stain - Preliminary
--- NOTE | 2024-08-10 11:23 | W.PN.HOSP.TC ---
Today's Communication/Plan
-
prob Bronch tomorrow
Continue AB
Assessment / Plan
Assessment / Plan
08/01/24 14:23 Blood/Venous Blood Culture - Preliminary
No Growth in 4 days- Final report to follow
08/01/24 14:18 Blood/Venous Blood Culture - Preliminary
No Growth in 4 days- Final report to follow
08/03/24 11:15 Sputum Respiratory Culture - Final
Rama albicans
08/03/24 11:15 Sputum Gram Stain - Final
08/03/24 18:52 Urine Legionella Urinary Antigen - Final
Negative for Legionella pneumophila Serogroup 1 antigen.
A negative result does not rule out the possiblity of
Legionella infection due to other serogroups or species of
Legionella. Clinical correlation is recommended.
08/03/24 18:52 Urine Streptococcus pneumoniae Antigen (M - Final
Negative for Streptococcus pneumoniae antigen.
A negative result does not exclude infection with
Streptococcus pneumoniae. Clinical correlation is
recommended.
08/02/24 09:30 Nose MRSA Screen - Final
No Methicillin Resistant Staphylococcus aureus isolated.
08/02/24 04:28 Nose Nasal Screen MRSA (PCR) - Final
08/01/24 14:18 Nasal Swab Influenza Types A & B (BRI) - Final
Negative for Influenza A & B, NAAT
Negative results must be combined with clinical observations
and patient history.
Nucleic Acid Amplification test (NAAT)performed on the
[employer] NOW platform.
CTA chest 08/01/24:
1. No evidence of pulmonary embolism.
2. Severe left lower lobe pneumonia.
79-year-old female with cough and confusion
Echo 08/06/2024-normal biventricular size and systolic function. No valvular disease
CT chest- 08/07/24- There is increased extensive consolidation throughout the left lower lobe as well as nodular opacities in the right lower lobe consistent with worsening multifocal pneumonia. There are multiple gas containing foci within the left
lower lobe which appears slightly increased from prior and likely represent an element of cavitary pneumonia. Additionally there is a 4.7 x 3.1 cm and a 3.4 x 2.3 cm gas and fluid containing focus within the left lower lobe which are suspicious for
pulmonary abscesses.
CVS: S1-S2 normal
Chest: Bronchial breath sounds on the left side
Abdomen: Soft, NT / Bowel sounds present
Extremities: No edema
# Severe left lower lobe pneumonia in the setting of severe COPD and bilateral lower lobe bronchiectasis with interstitial fibrotic changes
COVID and influenza negative
Leukocytosis with left shift on admission-improved
Was on 6 L of oxygen then on BiPAP with 10 L of oxygen now on 2 L
Blood cultures negative
Was on Zosyn , changed to Augmentin , Now on Meropenem
Rpt CT reviewed by me , worse with lung abscess- Consult ID, change AB to Meropenem.
Patient currently off Zithromax and prednisone
Continue Mucinex, 3% saline nebulization, Acapella, Vest
for Bronch tomorrow
# Cardiology evaluation appreciated-no evidence of CHF. HCTZ resumed for lower extremity edema
# Chronic anemia iron studies unremarkable
Status post 1 unit of PRBC
# COPD-severe with FEV1 1.6L, 68% predicted, severely reduced DLCO on Breztri, Trelegy Ellipta as OP.
Not on exacerbation currently.
Holding trilogy while on DuoNeb.
# WILFRIDO resolved
# Multiple pulmonary nodules-PET scan negative in the past-stable since 2020. Outpatient pulmonary follow-up
# Rheumatoid arthritis-continue Plaquenil
# Hypertension-continue lisinopril/HCTZ
# Anxiety and depression-continue Lexapro, Vilazodone and as needed lorazepam
# Hyperlipidemia-continue statin
# Chronic steroid use for rheumatoid arthritis
# Underweight with severe protein calorie malnutrition
# History of left breast cancer with history of lumpectomy and radiation 1993
# History of perforated peptic ulcer-add H2 blockers especially with chronic use of steroids
# Ex-smoker
# DVT prophylaxis on Lovenox
# Full code
D/W at bed side
D/W ID and Pulm
D/W RN
Anticipated Discharge: > 48 hours
Subjective/Interval History
-
Date of Service: August 10, 2024
Objective Data
-
Labs:
Laboratory Results
08/10/24
08:43
WBC 13.5 H
Hgb 9.9 L
Hct 32.1 L
Plt Count 353
Sodium 133 L
Potassium 4.0
Chloride 91 L
Carbon Dioxide 36 H
BUN 21 H
Creatinine 0.8
Glucose 52 L*
Calcium 8.4
Vital Signs:
Vital Signs
Temp Pulse Resp BP Pulse Ox
98.1 F 83 18 119/55 94
08/10/24 07:28 08/10/24 07:48 08/10/24 07:28 08/10/24 07:48 08/10/24 07:28
I&O
08/09/24 08/10/24 08/11/24
06:59 06:59 06:59
Intake Total 1380 / 1380 600 / 600
Balance 1380 / 1380 600 / 600
[2024-08-10] MEDS: ATIVAN 0.5 MG PO ×2 (13:47→20:52)
[2024-08-10 15:15] VITALS: BP 105/45
[2024-08-10] MEDS: PLAQUENIL 300 MG PO (18:32)
[2024-08-10] MEDS: LOVENOX 30 MG SC (18:32)
[2024-08-10] MEDS: LIPITOR 10 MG PO (21:00)
[2024-08-10 22:50] VITALS: BP 143/70
[2024-08-11] MEDS: MERREM 500 MG IV ×3 (04:53→20:13)
[2024-08-11] MEDS: STERILE WATER FOR INJECTION 10 ML IV ×3 (04:54→20:13)
[2024-08-11 06:00] VITALS: BMI 17.7
[2024-08-11 07:11] VITALS: BP 126/64
[2024-08-11 07:12] LABS: Hematocrit 31.8 % (37.0-47.0); Hemoglobin 9.8 g/dL (12.0-16.0); Mean Corp Hgb Conc. 30.8 g/dL (33.0-37.0); Mean Corpuscular Hgb 29.1 pg (27.0-31.0); Mean Corpuscular Volume 94.4 fL (81.0-99.0); Mean Platelet Volume 8.6 fL (7.4-10.4); Platelet Count 387 10^3/uL (130-400); Red Blood Cell Count 3.37 10^6/uL (4.20-5.40); Red Cell Dist. Width 20.5 % (11.5-14.5); White Blood Cell Count 11.7 10^3/uL (4.8-10.8)
[2024-08-11] MEDS: SODIUM CHLORIDE 3% FOR INHALATION 1 VIAL INH ×2 (07:15→20:13)
[2024-08-11] MEDS: DUONEB 3 ML INH ×3 (07:15→20:13)
[2024-08-11 08:00] LABS: Blood Urea Nitrogen 22 mg/dl (7-17); Calcium 8.7 mg/dl (8.4-10.2); Carbon Dioxide 39 mmol/L (22-30); Chloride 91 mmol/L (98-107); Estimated Creatinine Clearance 39 ml/min; Glucose 65 mg/dl (70-99); Potassium 3.9 mmol/L (3.5-5.1); Sodium 133 mmol/L (135-145); eGFR > 60.00
[2024-08-11] MEDS: LIDOCAINE 4% PATCH 1 PATCH TOPICAL (09:50)
[2024-08-11] MEDS: ORETIC 12.5 MG PO (09:51)
[2024-08-11] MEDS: PEPCID 20 MG PO (09:51)
[2024-08-11] MEDS: LEXAPRO 20 MG PO (09:51)
[2024-08-11] MEDS: ZESTRIL 10 MG PO (09:51)
[2024-08-11] MEDS: MUCINEX 600 MG PO ×2 (09:51→20:14)
[2024-08-11] MEDS: NON-FORMULARY ITEM 40 MG PO (09:52)
--- NOTE | 2024-08-11 10:32 | W.PN.PUL3 ---
Today's Communication / Plan
-
Continue antibiotics
Continue secretion clearance intervention
Continue oxygen supplementation
Bronchoscopy 08/12/2024 7:30 AM
N.p.o. after midnight
Assessment
-
Patient is a very pleasant 79-year-old female with known history of severe COPD, bilateral lower lobe mild fibrotic changes with traction bronchiectasis and pulmonary nodules who presented to the hospital with increasing cough and some confusion
over the last 2 weeks. Patient reportedly had an episode of pneumonia last year in January and required home oxygen which she eventually improved and was taken off supplemental oxygen. Her last 6-minute walk test in the clinic was unremarkable
without any desaturation. Over the last 2 weeks he started having increasing cough with occasional wheezing and small amount of phlegm production. Patient also noted to be increasingly confused and was noted to be hypoxic with pulse ox down to
82%. She was brought to the emergency room for further workup. Imaging in emergency room was suggestive of dense left lower lobe pneumonia. Pulmonary consultation was requested for further input.
Acute hypoxic respiratory failure.
Severe Left lower lobe pneumonia.
Acute on chronic SOB
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
R hip fractures s/p cemented bipolar endoprosthesis 02/23/24 s/p mechanical fall
Multiple lung nodules, measuring 3-5mm
s/p Bronchoscopy results 06/12/20: No endobronchial lesions. BAL was performed in both lower lobes and right upper lobe/AFB neg
COPD, severe
Followed by Dr Morrissey, last seen 2020
PFT - FEV1 was 1.26 L or 59% of predicted and previously was 1.50 L or 74% predicted
Cylindrical bronchiectasis RML and lingula
Fibrosis noted on CT, new/progressed
History of tobacco abuse/[id number] smoking history. Quit around 2009
History of pleural effusion
Interstitial lung disease
Rheumatoid arthritis w/ Immunosuppressed status
History of breast cancer s/p Left lumpectomy and axillary node dissection for stage I left breast carcinoma (1993, radiation/no chemo)
Plan
Most likely acute trigger is left lower lobe pneumonia in the setting of underlying COPD with bibasilar fibrotic changes and bronchiectasis.
Initially admitted on 08/01/2024 has been on antibiotics.
Chronically immunosuppressed
Mild persistent leukocytosis-improving.
Remains afebrile.
Continue to have difficulty expectorating-has not been able to provide adequate sputum sample.
-
CT chest 08/06/2024:
Increase extensive consolidation throughout left lower lobe as well as nodular opacities in the right lower lobe consistent with worsening multifocal pneumonia. There are multiple gas containing foci within the left lower lobe increased compared to
prior. Cavitary pneumonia/lung abscess.
There is a 4.7 X3.1X 3.4 gas and fluid containing focus within the left lower low suspicion for pulmonary abscess.
New small right pleural effusion.
-
Repeat chest x-ray 08/09/2024:Unchanged left lower lobe infiltrate/left sided loss of volume.
-
MRSA screen negative, Vancomycin stopped. DC Zosyn, transitioned to Augmentin
Completed 3 days of azithromycin 500 mg daily
Meropenem per infectious disease.D#5
-
Negative microbiologically other than the sputum with Rama.
Negative Legionella antibody
Negative for streptococcal antibody
Negative MRSA screen
Repeated sputum culture 08/09/2023: Normal respiratory samara.
-
Given immunosuppression and poor sample of cultures, will perform bronchoscopy for diagnostic and also therapeutic reasons. Has significant loss of volume on the left lung field on chest x-ray.
Bronchoscopy scheduled for 08/12/2024 7:30 AM.
N.p.o. after midnight.
Unfortunately, not able to perform today 08/11/2024 due to scheduling issues.
Remains on supplemental oxygen
Discussed with patient procedures including risk of anesthesia, risk of respiratory failure require mechanical ventilation, less likely risk of bleeding, risk of as well was discussed which is minimal.
She is agreeable to proceed.
-
Continue secretion clearance interventions:
She is significantly more productive now
Continue Mucinex twice a day
Continue 3% normal saline nebulized every 12 hours for airway clearance
Mucomyst nebulized as needed
flutter valve
VEST bid
-
COPD noted--FEV1 was 1.6 L, 68% of predicted as per pulmonary function testing in April 2024 with severely reduced DLCO. Eosinophil count 0-200
Continue DuoNeb scheduled, lowered to tid
Hold Trelegy while patient is on scheduled DuoNeb
Patient is not actively wheezing.
Likely will need home oxygen at discharge
At discharge, resume Trelegy and as needed albuterol
Prior history:
Bilateral lower lobe bronchiectasis with interstitial fibrotic changes. Patient's lower lobe bronchiectasis appears to be related to traction due to lower lobe mild fibrotic changes. I reviewed the previous x-rays and CT scans and fibrosis has not
progressed much. This is probably related to underlying diagnosis of rheumatoid arthritis. She does not have a typical UIP radiological pattern
Multiple pulmonary nodules. Previous PET scan has been negative and over the years nodules have stayed stable suggestive of benign etiology.
Continue follow-up as an outpatient with pulmonary clinic
Patient follows up with Dr. Correa at [facility] and will resume follow-up after discharge
-
Dr. Henry, updated primary team about plan of care 08/11/2024.
Data:
CT CHEST 07/2024: 1. No evidence of pulmonary embolism.
2. Severe left lower lobe pneumonia.
CT CHEST 01/2024: 1.). The stability of the multiple bilateral pulmonary nodules dating back to 08/11/2020 suggests that they are benign
2). COPD with worsening predominantly interstitial fibrosis and bronchiectasis at the lung bases
3). Minimal left pleural effusion
Total time spent on this consultation/encounter __41__ minutes which includes review of history, physical exam, medications, laboratory data, personal review of imaging, extensive review of outpatient records, discussion with care team and
respiratory therapy
Subjective Data
-
Date of Service:
Date of Service: August 11, 2024
Chief Complaint: Pulmonary Follow Up (Severe pneumonia)
Objective Data
Data Reviewed
Vital Signs / I&O / Oxygen:
Vital Signs
Temp Pulse Resp BP Pulse Ox
98.4 F 80 16 126/64 100
08/11/24 07:11 08/11/24 07:16 08/11/24 07:16 08/11/24 07:11 08/11/24 07:11
Intake and Output
08/10/24 08/11/24 08/12/24
06:59 06:59 06:59
Intake Total 600 / 600 300 / 300
Output Total 100 / 100
Balance 600 / 600 300 / 300 -100 / -100
SaO2 100
Nasal Cannula flow liters per 2
minute
Physical Exam
General: Comfortable, Other (NAD, thin appearing) and Other (Cachectic)
HEENT: Normocephalic, Anicteric and Moist Mucous Membranes
Cardiovascular: S1-S2 and Regular Rhythm
Respiratory: Crackles (new L side), Non-Labored Respirations and Other (Bronchial breath sounds on the left)
GI: Soft, Non Distended and Non Tender
Neurology: Awake, Alert, Oriented and No Motor Deficits
Skin: Warm, Dry and Good Color
Labs/Micro/Reports
Lab Data
08/11/24 06:44
08/11/24 06:44
Microbiology
08/08/24 17:42 Sputum Respiratory Culture - Preliminary
Usual Respiratory Samara
08/08/24 17:42 Sputum Gram Stain - Preliminary
[2024-08-11 10:33] VITALS: PULSE 85; O2SAT 85
--- NOTE | 2024-08-11 10:44 | CM ---
Patient seen at bedside
Cont on oxygen
Bronchoscopy scheduled tomorrow am
[facility] accepted, pending bed avail
Referral in [facility]-updated [facility]
PLAN: [facility], Pending bed availabity when medically stable, will need to obtain ins auth
[2024-08-11 11:02] VITALS: BP 108/55; PULSE 87; O2SAT 92
--- NOTE | 2024-08-11 11:44 | W.PN.HOSP.TC ---
Today's Communication/Plan
-
Bronch tomorrow
Assessment / Plan
Assessment / Plan
08/01/24 14:23 Blood/Venous Blood Culture - Preliminary
No Growth in 4 days- Final report to follow
08/01/24 14:18 Blood/Venous Blood Culture - Preliminary
No Growth in 4 days- Final report to follow
08/03/24 11:15 Sputum Respiratory Culture - Final
Rama albicans
08/03/24 11:15 Sputum Gram Stain - Final
08/03/24 18:52 Urine Legionella Urinary Antigen - Final
Negative for Legionella pneumophila Serogroup 1 antigen.
A negative result does not rule out the possiblity of
Legionella infection due to other serogroups or species of
Legionella. Clinical correlation is recommended.
08/03/24 18:52 Urine Streptococcus pneumoniae Antigen (M - Final
Negative for Streptococcus pneumoniae antigen.
A negative result does not exclude infection with
Streptococcus pneumoniae. Clinical correlation is
recommended.
08/02/24 09:30 Nose MRSA Screen - Final
No Methicillin Resistant Staphylococcus aureus isolated.
08/02/24 04:28 Nose Nasal Screen MRSA (PCR) - Final
08/01/24 14:18 Nasal Swab Influenza Types A & B (BRI) - Final
Negative for Influenza A & B, NAAT
Negative results must be combined with clinical observations
and patient history.
Nucleic Acid Amplification test (NAAT)performed on the
[employer] NOW platform.
CTA chest 08/01/24:
1. No evidence of pulmonary embolism.
2. Severe left lower lobe pneumonia.
79-year-old female with cough and confusion
Echo 08/06/2024-normal biventricular size and systolic function. No valvular disease
CT chest- 08/07/24- There is increased extensive consolidation throughout the left lower lobe as well as nodular opacities in the right lower lobe consistent with worsening multifocal pneumonia. There are multiple gas containing foci within the left
lower lobe which appears slightly increased from prior and likely represent an element of cavitary pneumonia. Additionally there is a 4.7 x 3.1 cm and a 3.4 x 2.3 cm gas and fluid containing focus within the left lower lobe which are suspicious for
pulmonary abscesses.
CVS: S1-S2 normal
Chest: Bronchial breath sounds on the left side
Abdomen: Soft, NT / Bowel sounds present
Extremities: No edema
# Severe left lower lobe pneumonia in the setting of severe COPD and bilateral lower lobe bronchiectasis with interstitial fibrotic changes
COVID and influenza negative
Leukocytosis with left shift on admission-improved
Was on 6 L of oxygen then on BiPAP with 10 L of oxygen now on 2 L
Blood cultures negative
Was on Zosyn , changed to Augmentin , Now on Meropenem
Rpt CT reviewed by me , worse with lung abscess- Consult ID, change AB to Meropenem.
Patient currently off Zithromax and prednisone
Continue Mucinex, 3% saline nebulization, Acapella, Vest
for Bronch tomorrow ( No availability today)
Sputum CX rama
# Cardiology evaluation appreciated-no evidence of CHF. HCTZ resumed for lower extremity edema
# Chronic anemia iron studies unremarkable
Status post 1 unit of PRBC
# COPD-severe with FEV1 1.6L, 68% predicted, severely reduced DLCO on Breztri, Trelegy Ellipta as OP.
Not on exacerbation currently.
Holding trilogy while on DuoNeb.
# WILFRIDO resolved
# Multiple pulmonary nodules-PET scan negative in the past-stable since 2020. Outpatient pulmonary follow-up
# Rheumatoid arthritis-continue Plaquenil
# Hypertension-continue lisinopril/HCTZ
# Anxiety and depression-continue Lexapro, Vilazodone and as needed lorazepam
# Hyperlipidemia-continue statin
# Chronic steroid use for rheumatoid arthritis
# Underweight with severe protein calorie malnutrition
# History of left breast cancer with history of lumpectomy and radiation 1993
# History of perforated peptic ulcer-add H2 blockers especially with chronic use of steroids
# Ex-smoker
# DVT prophylaxis on Lovenox
# Full code
D/W Pulm
D/W RN
Anticipated Discharge: > 48 hours
Subjective/Interval History
-
Date of Service: August 11, 2024
Objective Data
-
Labs:
Laboratory Results
08/11/24
06:44
WBC 11.7 H
Hgb 9.8 L
Hct 31.8 L
Plt Count 387
Sodium 133 L
Potassium 3.9
Chloride 91 L
Carbon Dioxide 39 H
BUN 22 H
Creatinine 0.8
Glucose 65 L
Calcium 8.7
Vital Signs:
Vital Signs
Temp Pulse Resp BP Pulse Ox
98.4 F 80 16 126/64 100
08/11/24 07:11 08/11/24 07:16 08/11/24 07:16 08/11/24 07:11 08/11/24 07:11
I&O
08/10/24 08/11/24 08/12/24
06:59 06:59 06:59
Intake Total 600 / 600 300 / 300
Output Total 100 / 100
Balance 600 / 600 300 / 300 -100 / -100
[2024-08-11] MEDS: ATIVAN 0.5 MG PO ×2 (12:17→20:14)
--- NOTE | 2024-08-11 13:38 | W.PN.ID1 ---
Date of Service
Date of Service: August 11, 2024
Today's Communication
- agree with meropenem at present - may consider a course of outpatient IV antibiotics
Assessment / Plan
Pulmonary Abscess
Dysphagia
Severe COPD
Bronchiectasis
RA on chronic prednisone 5 mg PO qday and plaquneil
Cachexia
- 08/08 sputum - usual resp samara
- 08/03 sputum - C albicans - normal samara
- agree with bronchoscopy - will follow up cultures
- agree with meropenem at present - may consider a course of outpatient IV antibiotics
Chief Complaint
-: Pneumonia and Other (Pulmonary abscess)
Subjective / Review of Systems
afebrile
bp stable
bronchoscopy will be tomorrow
Vital Signs / Physical Exam
Vital Signs
Vital Signs
Temp Pulse Resp BP Pulse Ox
98.4 F 80 16 126/64 100
08/11/24 07:11 08/11/24 07:16 08/11/24 07:16 08/11/24 07:11 08/11/24 07:11
Physical Exam
Constitutional: No Acute Distress
Cardiovascular: Regular Rate and S1/S2; Negative Murmur or Rub
Pulmonary: Clear and Symmetric; Negative Wheezes or Rales
Gastrointestinal: Soft, Non Tender, Non Distended and Normal Bowel Sounds
Skin: Warm and Dry; Negative Rash or Jaundice
Objective Data
Lab Data
Lab Results
08/11/24 06:44
08/11/24 06:44
ESR 84 mm/hour (0-20) H 08/09/24 06:23
Estimated Creat Clear 39 ml/min 08/11/24 06:44
Lactic Acid 0.8 mmol/L (0.7-2.0) 08/01/24 14:18
Total Bilirubin 0.4 mg/dl (0.2-1.3) 08/01/24 12:25
AST 33 U/L (14-36) 08/01/24 12:25
ALT 25 U/L (0-35) 08/01/24 12:25
Alkaline Phosphatase 136 U/L (38-126) H 08/01/24 12:25
C-Reactive Protein 82.10 mg/L (0.0-10.00) H 08/09/24 06:23
Most recent labs reviewed.
Micro Results:
08/08/24 17:42 Respiratory Culture - Final
Sputum Usual Respiratory Samara
Gram Stain - Final
08/01/24 14:23 Blood Culture - Final
Blood/Venous No Growth - Final Report
08/01/24 14:18 Blood Culture - Final
Blood/Venous No Growth - Final Report
08/03/24 11:15 Respiratory Culture - Final
Sputum Rama albicans
Gram Stain - Final
08/03/24 18:52 Legionella Urinary Antigen - Final
Urine Negative for Legionella pneumophila Serogroup 1 antigen.
A negative result does not rule out the possiblity of
Legionella infection due to other serogroups or species of
Legionella. Clinical correlation is recommended.
Streptococcus pneumoniae Antigen (M - Final
Negative for Streptococcus pneumoniae antigen.
A negative result does not exclude infection with
Streptococcus pneumoniae. Clinical correlation is
recommended.
08/02/24 09:30 MRSA Screen - Final
Nose No Methicillin Resistant Staphylococcus aureus isolated.
08/02/24 04:28 Nasal Screen MRSA (PCR) - Final
Nose
08/01/24 14:18 Influenza Types A & B (BRI) - Final
Nasal Swab Negative for Influenza A & B, NAAT
Negative results must be combined with clinical observations
and patient history.
Nucleic Acid Amplification test (NAAT)performed on the
[employer] platform.
--- NOTE | 2024-08-11 14:08 | RESPNOTE ---
Respiratory: patient declined CPA via vest today. Lungs CTA/decreased.
[2024-08-11 15:05] VITALS: BP 130/52
[2024-08-11] MEDS: LOVENOX 30 MG SC (17:33)
[2024-08-11] MEDS: PLAQUENIL 300 MG PO (17:34)
[2024-08-11] MEDS: LIPITOR 10 MG PO (20:14)
[2024-08-11] MEDS: TYLENOL 650 MG PO (20:24)
[2024-08-11 23:17] VITALS: BP 125/60
[2024-08-12] VITALS (33 sets, daily range): BP systolic 83–132; BP diastolic 48–93; PULSE 3–102; BMI 17.7
[2024-08-12] MEDS: STERILE WATER FOR INJECTION 10 ML IV ×3 (04:32→19:40)
[2024-08-12] MEDS: MERREM 500 MG IV ×3 (04:32→19:41)
[2024-08-12 07:07] LABS: Hematocrit 33.5 % (37.0-47.0); Mean Corp Hgb Conc. 29.9 g/dL (33.0-37.0); Mean Corpuscular Hgb 28.6 pg (27.0-31.0); Mean Corpuscular Volume 95.7 fL (81.0-99.0); Mean Platelet Volume 8.4 fL (7.4-10.4); Platelet Count 404 10^3/uL (130-400); Red Cell Dist. Width 20.6 % (11.5-14.5)
[2024-08-12 07:13] LABS: INR 1.01; PT 13.8 Sec (11.4-14.6)
[2024-08-12] MEDS: SODIUM CHLORIDE 3% FOR INHALATION 1 VIAL INH ×2 (07:19→19:41)
[2024-08-12] MEDS: DUONEB 3 ML INH ×3 (07:19→19:41)
--- NOTE | 2024-08-12 07:24 | PTCARENOTE ---
0700 Pt received in bed AAOX3, but is forgetful. Pt aware she will be going to GI lab for her bronchoscopy today at 0730. All needs met.
--- NOTE | 2024-08-12 08:10 | W.PN.UPDATE ---
Update Note
Progress Note Update
Bronchoscopy note
Indications: Retained secretions, severe pneumonia, persistent unresolving infiltrate
Informed consent: Obtained by patient
Findings: See report for complete details. Significant thick mucopurulent secretions throughout tracheobronchial tree, predominant in the left side. Required extensive suction to clear airway. Airway was successfully cleared, distal airway mildly
erythematous in the left lower lobe. BAL completed left lower lobe. Patient did require extra sedation due to biting during procedure.
Placed on BiPAP postprocedure, presently 15/8 to 2 L 100% saturation, patient opening eyes, spontaneously breathing
Given severity of secretions, poor airway clearance, would consider tx to IMU for closer monitoring and more aggressive airway clearance measures
Reviewed with PACU nursing, anesthesia, nursing, primary service
--- NOTE | 2024-08-12 10:04 | W.PN.HOSP.TC ---
Today's Communication/Plan
-
Transfer to IMU
Wait for cultures
Assessment / Plan
Assessment / Plan
08/01/24 14:23 Blood/Venous Blood Culture - Preliminary
No Growth in 4 days- Final report to follow
08/01/24 14:18 Blood/Venous Blood Culture - Preliminary
No Growth in 4 days- Final report to follow
08/03/24 11:15 Sputum Respiratory Culture - Final
Lee albicans
08/03/24 11:15 Sputum Gram Stain - Final
08/03/24 18:52 Urine Legionella Urinary Antigen - Final
Negative for Legionella pneumophila Serogroup 1 antigen.
A negative result does not rule out the possiblity of
Legionella infection due to other serogroups or species of
Legionella. Clinical correlation is recommended.
08/03/24 18:52 Urine Streptococcus pneumoniae Antigen (M - Final
Negative for Streptococcus pneumoniae antigen.
A negative result does not exclude infection with
Streptococcus pneumoniae. Clinical correlation is
recommended.
08/02/24 09:30 Nose MRSA Screen - Final
No Methicillin Resistant Staphylococcus aureus isolated.
08/02/24 04:28 Nose Nasal Screen MRSA (PCR) - Final
08/01/24 14:18 Nasal Swab Influenza Types A & B (BRI) - Final
Negative for Influenza A & B, NAAT
Negative results must be combined with clinical observations
and patient history.
Nucleic Acid Amplification test (NAAT)performed on the
[employer] platform.
CTA chest 08/01/24:
1. No evidence of pulmonary embolism.
2. Severe left lower lobe pneumonia.
79-year-old female with cough and confusion
Echo 08/06/2024-normal biventricular size and systolic function. No valvular disease
CT chest- 08/07/24- There is increased extensive consolidation throughout the left lower lobe as well as nodular opacities in the right lower lobe consistent with worsening multifocal pneumonia. There are multiple gas containing foci within the left
lower lobe which appears slightly increased from prior and likely represent an element of cavitary pneumonia. Additionally there is a 4.7 x 3.1 cm and a 3.4 x 2.3 cm gas and fluid containing focus within the left lower lobe which are suspicious for
pulmonary abscesses.
CVS: S1-S2 normal
Chest: few rales B/L
Abdomen: Soft, NT / Bowel sounds present
Extremities: No edema
Awake and alert on BIPAP now
# Severe left lower lobe pneumonia in the setting of severe COPD and bilateral lower lobe bronchiectasis with interstitial fibrotic changes
COVID and influenza negative
Leukocytosis with left shift on admission-improved
Was on 6 L of oxygen then on BiPAP with 10 L of oxygen now on 2 L
Blood cultures negative
Was on Zosyn , changed to Augmentin , Now on Meropenem
Rpt CT reviewed by me , worse with lung abscess- Consult ID, change AB to Meropenem.
Sputum CX lee
Patient currently off Zithromax and prednisone
Continue Mucinex, 3% saline nebulization, Acapella, Vest
S/P Bronch 08/12/24
Lot of Secretions- Sent for CX
On BIPAP Post procedure- Now awake and alert.
# Cardiology evaluation appreciated-no evidence of CHF. HCTZ resumed for lower extremity edema
# Chronic anemia iron studies unremarkable
Status post 1 unit of PRBC
# COPD-severe with FEV1 1.6L, 68% predicted, severely reduced DLCO on BreztriAndradelegy Ellipta as OP.
Not on exacerbation currently.
Holding trilogy while on DuoNeb.
# WILFRIDO resolved
# Multiple pulmonary nodules-PET scan negative in the past-stable since 2020. Outpatient pulmonary follow-up
# Rheumatoid arthritis-continue Plaquenil
# Hypertension-continue lisinopril/HCTZ
# Anxiety and depression-continue Lexapro, Vilazodone and as needed lorazepam
# Hyperlipidemia-continue statin
# Chronic steroid use for rheumatoid arthritis
# Underweight with severe protein calorie malnutrition
# History of left breast cancer with history of lumpectomy and radiation 1993
# History of perforated peptic ulcer-add H2 blockers especially with chronic use of steroids
# Ex-smoker
# DVT prophylaxis on Lovenox
# Full code
D/W Pulm
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
Spoke to and updated.
Transfer to IMU
Time spent 51 min
Anticipated Discharge: 24 - 48 hours
Subjective/Interval History
-
Date of Service: August 12, 2024
Objective Data
-
Labs:
Laboratory Results
08/12/24
06:53
WBC 12.0 H
Hgb 10.0 L
Hct 33.5 L
Plt Count 404 H
PT 13.8
INR 1.01
Vital Signs:
Vital Signs
Temp Pulse Resp BP Pulse Ox
98 F 91 16 90/48 89
08/12/24 08:37 08/12/24 09:30 08/12/24 09:30 08/12/24 09:30 08/12/24 09:30
I&O
08/11/24 08/12/24 08/13/24
06:59 06:59 06:59
Intake Total 300 / 300 480 / 480
Output Total 100 / 100
Balance 300 / 300 380 / 380
[2024-08-12] MEDS: LEXAPRO 20 MG PO (10:58)
[2024-08-12] MEDS: ZESTRIL 10 MG PO (10:59)
[2024-08-12] MEDS: PEPCID 20 MG PO (10:59)
[2024-08-12] MEDS: ORETIC 12.5 MG PO (10:59)
[2024-08-12] MEDS: MUCINEX 600 MG PO ×2 (11:00→19:40)
--- NOTE | 2024-08-12 11:14 | PTCARENOTE ---
Pt from PACU on Bipap post Bronch placed on 3L O2 pox at 95 %. Pt is AAOx3 ECHOLS no co at this time
[2024-08-12] MEDS: NON-FORMULARY ITEM 1 MG PO (11:40)
--- NOTE | 2024-08-12 12:24 | W.PN.ID1 ---
Date of Service
Date of Service: August 12, 2024
Today's Communication
- 08/12 bronch cultures: routine, fungal and AFB in progress
- agree with meropenem at present
Assessment / Plan
Pulmonary Abscess
Dysphagia
Severe COPD
Bronchiectasis
RA on chronic prednisone 5 mg PO qday and plaquneil
Cachexia
- 08/12 bronch cultures: routine, fungal and AFB in progress
- 08/08 sputum - usual resp samara
- 08/03 sputum - C albicans - normal samara
- agree with meropenem at present
Chief Complaint
-: Pneumonia and Other (Pulmonary abscess)
Subjective / Review of Systems
afebrile
bp stable
no complaints
Vital Signs / Physical Exam
Vital Signs
Vital Signs
Temp Pulse Resp BP Pulse Ox
97.8 F 82 17 109/54 95
08/12/24 10:30 08/12/24 10:59 08/12/24 10:40 08/12/24 10:59 08/12/24 10:54
Physical Exam
Constitutional: No Acute Distress and Chronically Ill
Cardiovascular: Regular Rate and S1/S2; Negative Murmur or Rub
Pulmonary: Clear and Symmetric; Negative Wheezes or Rales
Gastrointestinal: Soft, Non Tender, Non Distended and Normal Bowel Sounds
Skin: Warm and Dry; Negative Rash or Jaundice
Objective Data
Lab Data
Lab Results
08/12/24 06:53
08/11/24 06:44
ESR 84 mm/hour (0-20) H 08/09/24 06:23
PT 13.8 Sec (11.4-14.6) 08/12/24 06:53
INR 1.01 08/12/24 06:53
Estimated Creat Clear 39 ml/min 08/11/24 06:44
Lactic Acid 0.8 mmol/L (0.7-2.0) 08/01/24 14:18
Total Bilirubin 0.4 mg/dl (0.2-1.3) 08/01/24 12:25
AST 33 U/L (14-36) 08/01/24 12:25
ALT 25 U/L (0-35) 08/01/24 12:25
Alkaline Phosphatase 136 U/L (38-126) H 08/01/24 12:25
C-Reactive Protein 82.10 mg/L (0.0-10.00) H 08/09/24 06:23
Most recent labs reviewed.
Micro Results:
08/12/24 08:10 Fungal Culture - Preliminary
Lung - Left Culture in progress.
Positive cultures are reported as soon as detected.
Final report to follow in four to five weeks.
08/12/24 08:10 Respiratory Culture - Pending
Bronch Left Lower Lobe Gram Stain - Pending
08/12/24 08:10 Acid Fast Bacilli Smear - Pending
Lung - Left Acid Fast Bacilli Culture - Pending
08/08/24 17:42 Respiratory Culture - Final
Sputum Usual Respiratory Samara
Gram Stain - Final
08/01/24 14:23 Blood Culture - Final
Blood/Venous No Growth - Final Report
08/01/24 14:18 Blood Culture - Final
Blood/Venous No Growth - Final Report
08/03/24 11:15 Respiratory Culture - Final
Sputum Rama albicans
Gram Stain - Final
08/03/24 18:52 Legionella Urinary Antigen - Final
Urine Negative for Legionella pneumophila Serogroup 1 antigen.
A negative result does not rule out the possiblity of
Legionella infection due to other serogroups or species of
Legionella. Clinical correlation is recommended.
Streptococcus pneumoniae Antigen (M - Final
Negative for Streptococcus pneumoniae antigen.
A negative result does not exclude infection with
Streptococcus pneumoniae. Clinical correlation is
recommended.
08/02/24 09:30 MRSA Screen - Final
Nose No Methicillin Resistant Staphylococcus aureus isolated.
08/02/24 04:28 Nasal Screen MRSA (PCR) - Final
Nose
08/01/24 14:18 Influenza Types A & B (BRI) - Final
Nasal Swab Negative for Influenza A & B, NAAT
Negative results must be combined with clinical observations
and patient history.
Nucleic Acid Amplification test (NAAT)performed on the
[employer] platform.
[2024-08-12] MEDS: PLAQUENIL 300 MG PO (16:54)
[2024-08-12] MEDS: LOVENOX 30 MG SC (16:54)
[2024-08-12] MEDS: LIDOCAINE 4% PATCH TOPICAL (17:00)
[2024-08-12] MEDS: LIPITOR 10 MG PO (19:40)
[2024-08-12] MEDS: ATIVAN 0.5 MG PO (20:55)
[2024-08-13] VITALS (16 sets, daily range): BP systolic 80–143; BP diastolic 43–80; PULSE 77–86; O2SAT 97–98; BMI 17.9
[2024-08-13] MEDS: MERREM 500 MG IV ×3 (03:48→19:19)
[2024-08-13] MEDS: STERILE WATER FOR INJECTION 10 ML IV ×3 (03:48→19:20)
[2024-08-13 04:15] LABS: Hematocrit 28.5 % (37.0-47.0); Hemoglobin 8.5 g/dL (12.0-16.0); Mean Corp Hgb Conc. 29.8 g/dL (33.0-37.0); Mean Corpuscular Hgb 28.6 pg (27.0-31.0); Mean Platelet Volume 8.5 fL (7.4-10.4); Platelet Count 381 10^3/uL (130-400); Red Blood Cell Count 2.97 10^6/uL (4.20-5.40); White Blood Cell Count 11.5 10^3/uL (4.8-10.8)
[2024-08-13 04:53] LABS: Blood Urea Nitrogen 28 mg/dl (7-17); Calcium 8.9 mg/dl (8.4-10.2); Carbon Dioxide 34 mmol/L (22-30); Chloride 93 mmol/L (98-107); Estimated Creatinine Clearance 31 ml/min; Glucose 91 mg/dl (70-99); Potassium 4.9 mmol/L (3.5-5.1); Sodium 134 mmol/L (135-145); eGFR 57.66
[2024-08-13] MEDS: SODIUM CHLORIDE 3% FOR INHALATION 1 VIAL INH ×2 (07:17→19:46)
[2024-08-13] MEDS: DUONEB 3 ML INH ×3 (07:17→19:46)
--- NOTE | 2024-08-13 08:20 | W.PN.PUL3 ---
Today's Communication / Plan
-
Continue meropenem per infectious disease
Aspiration precautions, speech therapy
Continue vest, 3% saline, DuoNebs
Obtain chest x-ray/
Suspect slow recovery given age, comorbidities, chronic immunosuppression
Reviewed with family at bedside
Assessment
-
Patient is a very pleasant 79-year-old female with known history of severe COPD, bilateral lower lobe mild fibrotic changes with traction bronchiectasis and pulmonary nodules who presented to the hospital with increasing cough and some confusion
over the last 2 weeks. Patient reportedly had an episode of pneumonia last year in January and required home oxygen which she eventually improved and was taken off supplemental oxygen. Her last 6-minute walk test in the clinic was unremarkable
without any desaturation. Over the last 2 weeks he started having increasing cough with occasional wheezing and small amount of phlegm production. Patient also noted to be increasingly confused and was noted to be hypoxic with pulse ox down to
82%. She was brought to the emergency room for further workup. Imaging in emergency room was suggestive of dense left lower lobe pneumonia. Pulmonary consultation was requested for further input.
Acute hypoxic respiratory failure.
Severe Left lower lobe pneumonia.
s/p bronchoscopy 08/12
Significant secretions throughout tracheobronchial tree, left worse than right
Postoperative suspected CO2 retention requiring BIPAP now off,
Acute on chronic SOB
Aspiration syndrome
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
R hip fractures s/p cemented bipolar endoprosthesis 02/23/24 s/p mechanical fall
Multiple lung nodules, measuring 3-5mm
s/p Bronchoscopy results 06/12/20: No endobronchial lesions. BAL was performed in both lower lobes and right upper lobe/AFB neg
COPD, severe
Followed by Dr Morrissey, last seen 2020
PFT - FEV1 was 1.26 L or 59% of predicted and previously was 1.50 L or 74% predicted
Cylindrical bronchiectasis RML and lingula
Fibrosis noted on CT, new/progressed
History of tobacco abuse/[id number] smoking history. Quit around 2009
History of pleural effusion
Interstitial lung disease
Rheumatoid arthritis w/ Immunosuppressed status
History of breast cancer s/p Left lumpectomy and axillary node dissection for stage I left breast carcinoma (1993, radiation/no chemo)
Plan/recommendations
At this time, patient appears to be comfortable, surprised at the relative lack of symptoms given findings on bronchoscopy
Speech and swallow evaluation noted, transient laryngeal penetration noted
Suspect chronic aspiration syndrome
Family at bedside confirms that they have suspected this for a while. Unfortunately did not believe this and continued with lack of aspiration precautions according to [id number] at bedside
This is concerning given chronic immunosuppression
Moving forward
Continue with aggressive airway clearance
Vest therapy
Continue 3% saline
Continue to hold inhaler regimen, would focus on nebulized regimen
DuoNebs [address] chest 08/06/2024: Increase extensive consolidation throughout left lower lobe as well as nodular opacities in the right lower lobe consistent with worsening multifocal pneumonia. There are multiple gas containing foci within the left lower lobe
increased compared to prior. Cavitary pneumonia/lung abscess.
There is a 4.7 X3.1X 3.4 gas and fluid containing focus within the left lower low suspicion for pulmonary abscess.
Repeat chest x-ray 08/14
MRSA screen negative, Vancomycin stopped. DC Zosyn, transitioned to Augmentin
Completed 3 days of azithromycin 500 mg daily
Meropenem per infectious disease
bronchoscopy cultures pending
Remains on supplemental oxygen
History of COPD noted: FEV1 was 1.6 L, 68% of predicted as per pulmonary function testing in April 2024 with severely reduced DLCO. Eosinophil count 0-200
Patient also has baseline COPD, bronchiectasis, interstitial changes
Reviewed with patient and [id number] at bedside that recovery may be difficult given age, comorbidities, chronic immunosuppression, chronic aspiration
Prior history:
Bilateral lower lobe bronchiectasis with interstitial fibrotic changes. Patient's lower lobe bronchiectasis appears to be related to traction due to lower lobe mild fibrotic changes. I reviewed the previous x-rays and CT scans and fibrosis has not
progressed much. This is probably related to underlying diagnosis of rheumatoid arthritis. She does not have a typical UIP radiological pattern
Multiple pulmonary nodules. Previous PET scan has been negative and over the years nodules have stayed stable suggestive of benign etiology.
Continue follow-up as an outpatient with pulmonary clinic
Patient follows up with Dr. Correa at [facility] and will resume follow-up after discharge
Data:
CT CHEST 07/2024: 1. No evidence of pulmonary embolism.
2. Severe left lower lobe pneumonia.
CT CHEST 01/2024: 1.). The stability of the multiple bilateral pulmonary nodules dating back to 08/11/2020 suggests that they are benign
2). COPD with worsening predominantly interstitial fibrosis and bronchiectasis at the lung bases
3). Minimal left pleural effusion
Total time spent on this consultation/encounter __41__ minutes which includes review of history, physical exam, medications, laboratory data, personal review of imaging, extensive review of outpatient records, discussion with care team and
respiratory therapy
Subjective Data
-
Date of Service:
Date of Service: August 13, 2024
Chief Complaint: Pulmonary Follow Up (Severe pneumonia)
Subjective:
Patient is without complaints. She denies shortness of breath, chest pain, nausea, dysphagia, choking. She does have a productive cough, denies hemoptysis.
Objective Data
Data Reviewed
Vital Signs / I&O / Oxygen:
Vital Signs
Temp Pulse Resp BP Pulse Ox
98.1 F 77 18 126/52 100
08/13/24 07:07 08/13/24 07:18 08/13/24 07:18 08/13/24 04:00 08/13/24 07:18
Intake and Output
08/12/24 08/13/24 08/14/24
06:59 06:59 06:59
Intake Total 480 / 480 320 / 320
Output Total 100 / 100
Balance 380 / 380 320 / 320
SaO2 100
Nasal Cannula flow liters per 3
minute
Physical Exam
General: Comfortable, Other (NAD, thin appearing) and Other (Cachectic)
HEENT: Normocephalic, Anicteric and Moist Mucous Membranes
Cardiovascular: S1-S2 and Regular Rhythm
Respiratory: Crackles (Few left side), Non-Labored Respirations, Egophony (Yes left base) and Other (Bronchial breath sounds on the left)
GI: Soft, Non Distended and Non Tender
Neurology: Awake, Alert and No Motor Deficits (Generally weak)
Skin: Warm, Dry and Other (Mild pallor)
Labs/Micro/Reports
Lab Data
08/13/24 03:46
08/13/24 03:46
Microbiology
08/12/24 08:10 Bronch Left Lower Lobe Gram Stain - Preliminary
08/12/24 08:10 Lung - Left Fungal Culture - Preliminary
Culture in progress.
Positive cultures are reported as soon as detected.
Final report to follow in four to five weeks.
08/08/24 17:42 Sputum Respiratory Culture - Final
Usual Respiratory Juliann
08/08/24 17:42 Sputum Gram Stain - Final
[2024-08-13] MEDS: LEXAPRO 20 MG PO (09:00)
[2024-08-13] MEDS: MUCINEX 600 MG PO ×2 (09:00→19:20)
[2024-08-13] MEDS: PEPCID 20 MG PO (09:00)
[2024-08-13] MEDS: VISBIOME 1 CAP PO (09:00)
[2024-08-13] MEDS: ORETIC 12.5 MG PO (09:00)
[2024-08-13] MEDS: NON-FORMULARY ITEM 1 MG PO (09:01)
[2024-08-13] MEDS: ZESTRIL 10 MG PO (09:01)
[2024-08-13] MEDS: LIDOCAINE 4% PATCH TOPICAL (09:02)
--- NOTE | 2024-08-13 13:16 | W.PN.ID1 ---
Date of Service
Date of Service: August 13, 2024
Today's Communication
Continue antibiotics.
Assessment / Plan
Pulmonary Abscess
Dysphagia
Severe COPD
Bronchiectasis
RA on chronic prednisone 5 mg PO qday and plaquneil
Cachexia
- 08/12 bronch cultures: routine, fungal and AFB in progress
- 08/08 sputum - usual resp samara
- 08/03 sputum - C albicans - normal samara
- Continue with meropenem (d#7) at present
����������������������������������������������������������
Chief Complaint
-: Pneumonia and Other (Pulmonary abscess)
Subjective / Review of Systems
Patient seen and examined. No reported issues overnight.
Vital Signs / Physical Exam
Vital Signs
Vital Signs
Temp Pulse Resp BP Pulse Ox
98.0 F 76 19 125/62 95
08/13/24 11:54 08/13/24 12:00 08/13/24 12:00 08/13/24 09:01 08/13/24 12:00
Physical Exam
Constitutional: No Acute Distress, Comfortable and Chronically Ill
Cardiovascular: Regular Rate and S1/S2
Pulmonary: Clear, Symmetric and Non Labored
Gastrointestinal: Soft, Non Tender, Non Distended and Normal Bowel Sounds
Skin: Warm and Dry; Negative Rash or Jaundice
Neurological: Awake and Alert
Psychological: Calm
Objective Data
Lab Data
Lab Results
08/13/24 03:46
08/13/24 03:46
ESR 84 mm/hour (0-20) H 08/09/24 06:23
PT 13.8 Sec (11.4-14.6) 08/12/24 06:53
INR 1.01 08/12/24 06:53
Estimated Creat Clear 31 ml/min 08/13/24 03:46
Lactic Acid 0.8 mmol/L (0.7-2.0) 08/01/24 14:18
Total Bilirubin 0.4 mg/dl (0.2-1.3) 08/01/24 12:25
AST 33 U/L (14-36) 08/01/24 12:25
ALT 25 U/L (0-35) 08/01/24 12:25
Alkaline Phosphatase 136 U/L (38-126) H 08/01/24 12:25
C-Reactive Protein 82.10 mg/L (0.0-10.00) H 08/09/24 06:23
Most recent labs reviewed.
Micro Results:
08/12/24 08:10 Respiratory Culture - Preliminary
Bronch Left Lower Lobe NO GROWTH
Gram Stain - Preliminary
08/12/24 08:10 Fungal Culture - Preliminary
Lung - Left Culture in progress.
Positive cultures are reported as soon as detected.
Final report to follow in four to five weeks.
08/12/24 08:10 Acid Fast Bacilli Smear - Pending
Lung - Left Acid Fast Bacilli Culture - Pending
08/08/24 17:42 Respiratory Culture - Final
Sputum Usual Respiratory Samara
Gram Stain - Final
08/01/24 14:23 Blood Culture - Final
Blood/Venous No Growth - Final Report
08/01/24 14:18 Blood Culture - Final
Blood/Venous No Growth - Final Report
08/03/24 11:15 Respiratory Culture - Final
Sputum Rama albicans
Gram Stain - Final
08/03/24 18:52 Legionella Urinary Antigen - Final
Urine Negative for Legionella pneumophila Serogroup 1 antigen.
A negative result does not rule out the possiblity of
Legionella infection due to other serogroups or species of
Legionella. Clinical correlation is recommended.
Streptococcus pneumoniae Antigen (M - Final
Negative for Streptococcus pneumoniae antigen.
A negative result does not exclude infection with
Streptococcus pneumoniae. Clinical correlation is
recommended.
08/02/24 09:30 MRSA Screen - Final
Nose No Methicillin Resistant Staphylococcus aureus isolated.
08/02/24 04:28 Nasal Screen MRSA (PCR) - Final
Nose
08/01/24 14:18 Influenza Types A & B (BRI) - Final
Nasal Swab Negative for Influenza A & B, NAAT
Negative results must be combined with clinical observations
and patient history.
Nucleic Acid Amplification test (NAAT)performed on the
[employer] platform.
[2024-08-13] MEDS: SENOKOT 17.2 MG PO ×2 (13:46→19:20)
[2024-08-13] MEDS: MILK OF MAGNESIA 30 ML PO (13:46)
[2024-08-13] MEDS: MIRALAX 17 GRAMS PO (13:46)
[2024-08-13] MEDS: ATIVAN 0.5 MG PO ×2 (13:46→19:20)
--- NOTE | 2024-08-13 14:31 | PTOTSP ---
Addendum entered and electronically signed by [facility] 08/13/24 14:33:
6. Reflux precautions
Original Note:
Videofluoroscopic swallow study
WFL-mild oral/pharyngeal dysphagia. No aspiration.
Recommendation:
1. IDDSI Level 7 Regular, Thin
2. Medications: as best tolerated
3. Strategies: upright to 90 degrees, full supervision, assist as needed, small single sips/bites, slow rate w/ breaks for breathing, double swallows (to help clear mouth/throat of residue)
4. Oral care 3x daily
5. No further dysphagia tx warranted. Please reconsult as appropriate.
--- NOTE | 2024-08-13 15:31 | W.PN.HOSP.TC ---
Today's Communication/Plan
-
Wait for bronc cultures
Transfer to telemetry
Encourage out of bed
Assessment / Plan
Assessment / Plan
08/01/24 14:23 Blood/Venous Blood Culture - Preliminary
No Growth in 4 days- Final report to follow
08/01/24 14:18 Blood/Venous Blood Culture - Preliminary
No Growth in 4 days- Final report to follow
08/03/24 11:15 Sputum Respiratory Culture - Final
Lee albicans
08/03/24 11:15 Sputum Gram Stain - Final
08/03/24 18:52 Urine Legionella Urinary Antigen - Final
Negative for Legionella pneumophila Serogroup 1 antigen.
A negative result does not rule out the possiblity of
Legionella infection due to other serogroups or species of
Legionella. Clinical correlation is recommended.
08/03/24 18:52 Urine Streptococcus pneumoniae Antigen (M - Final
Negative for Streptococcus pneumoniae antigen.
A negative result does not exclude infection with
Streptococcus pneumoniae. Clinical correlation is
recommended.
08/02/24 09:30 Nose MRSA Screen - Final
No Methicillin Resistant Staphylococcus aureus isolated.
08/02/24 04:28 Nose Nasal Screen MRSA (PCR) - Final
08/01/24 14:18 Nasal Swab Influenza Types A & B (BRI) - Final
Negative for Influenza A & B, NAAT
Negative results must be combined with clinical observations
and patient history.
Nucleic Acid Amplification test (NAAT)performed on the
[employer] platform.
CTA chest 08/01/24:
1. No evidence of pulmonary embolism.
2. Severe left lower lobe pneumonia.
79-year-old female with cough and confusion
Echo 08/06/2024-normal biventricular size and systolic function. No valvular disease
CT chest- 08/07/24- There is increased extensive consolidation throughout the left lower lobe as well as nodular opacities in the right lower lobe consistent with worsening multifocal pneumonia. There are multiple gas containing foci within the left
lower lobe which appears slightly increased from prior and likely represent an element of cavitary pneumonia. Additionally there is a 4.7 x 3.1 cm and a 3.4 x 2.3 cm gas and fluid containing focus within the left lower lobe which are suspicious for
pulmonary abscesses.
CVS: S1-S2 normal
Chest: few rales B/L
Abdomen: Soft, NT / Bowel sounds present
Extremities: No edema
Awake and alert on BIPAP now
# Severe left lower lobe pneumonia in the setting of severe COPD and bilateral lower lobe bronchiectasis with interstitial fibrotic changes
COVID and influenza negative
Leukocytosis with left shift on admission-improved
Was on 6 L of oxygen then on BiPAP with 10 L of oxygen now on 2 L
Blood cultures negative
Was on Zosyn , changed to Augmentin , Now on Meropenem
Rpt CT reviewed by me , worse with lung abscess- Consulted ID, change AB to Meropenem.
Sputum CX lee
Patient currently off Zithromax and prednisone
Continue Mucinex, 3% saline nebulization, Acapella, Vest
S/P Bronch 08/12/24
Lot of Secretions- Sent for CX-bronc cultures and AFB pending
Off BIPAP-wean oxygen as tolerated on nasal cannula now
Speech and swallow evaluation noted. Video swallow noted. No aspiration
Chest x-ray 08/14/2024
# Cardiology evaluation appreciated-no evidence of CHF. HCTZ resumed for lower extremity edema
# Chronic anemia iron studies unremarkable
Status post 1 unit of PRBC
# COPD-severe with FEV1 1.6L, 68% predicted, severely reduced DLCO on Breztri, Erin Ellipta as OP.
Not on exacerbation currently.
Holding trilogy while on DuoNeb.
# WILFRIDO resolved
# Multiple pulmonary nodules-PET scan negative in the past-stable since 2020. Outpatient pulmonary follow-up
# Rheumatoid arthritis-continue Plaquenil
# Hypertension-continue lisinopril/HCTZ
# Anxiety and depression-continue Lexapro, Vilazodone and as needed lorazepam
# Hyperlipidemia-continue statin
# Chronic steroid use for rheumatoid arthritis
# Underweight with severe protein calorie malnutrition
# History of left breast cancer with history of lumpectomy and radiation 1993
# History of perforated peptic ulcer-add H2 blockers especially with chronic use of steroids
# Ex-smoker
# DVT prophylaxis on Lovenox
# Full code
D/W Pulm
Discussed with nursing
Anticipated Discharge: 24 - 48 hours
Subjective/Interval History
-
Date of Service: August 13, 2024
Objective Data
-
Labs:
Laboratory Results
08/13/24
03:46
WBC 11.5 H
Hgb 8.5 L
Hct 28.5 L
Plt Count 381
Sodium 134 L
Potassium 4.9 D
Chloride 93 L
Carbon Dioxide 34 H
BUN 28 H
Creatinine 1.0
Glucose 91
Calcium 8.9
Vital Signs:
Vital Signs
Temp Pulse Resp BP Pulse Ox
98.0 F 76 23 119/52 99
08/13/24 11:54 08/13/24 14:00 08/13/24 14:00 08/13/24 14:00 08/13/24 14:00
I&O
08/12/24 08/13/24 08/14/24
06:59 06:59 06:59
Intake Total 480 / 480 320 / 320
Output Total 100 / 100
Balance 380 / 380 320 / 320
--- NOTE | 2024-08-13 16:43 | CM ---
Patient with Dx PNA, COPD, s/p bronchoscopy 08/12. O2 2L. Receiving IV Abx. VSE - regular diet. PT/OT recommend skilled rehab.
Patient has been accepted by [facility]. CM will need to call for bed availability when ready.
Plan [facility] when medically ready & bed available, and insurance auth obtained.
--- NOTE | 2024-08-13 17:23 | PTCARENOTE ---
Patient AOx3. Patient is forgetful at times. Bed alarm and chair alarm on and audible. Patient is very [place]. NSR on monitor. BP stable. Attempted to wean patient off of 2L NC, but SpO2 dropped below 88%. Patient utilizes bedside commode. See MAR for
bowel regimen. Assist x1 with RW when OOB. Call whiteside within reach, bed in lowest position, and bed of wheels locked.
[2024-08-13] MEDS: PLAQUENIL 300 MG PO (17:45)
[2024-08-13] MEDS: HEPARIN 5000 UNITS SC (19:19)
[2024-08-13] MEDS: LIPITOR 10 MG PO (19:20)
--- NOTE | 2024-08-13 20:30 | PTCARENOTE ---
assumed care of patient. pt is AAOx3, able to make needs known. VSS. pt with no complaints of pain or SOB. on 2L NC, 100%. lung with crackles at bases. [place], anxious. medicated with PRN ativan per JUN. care ongoing.
[2024-08-14] VITALS (12 sets, daily range): BP systolic 113–143; BP diastolic 58–103; BMI 18.2
--- NOTE | 2024-08-14 01:17 | PTCARENOTE ---
pt up to BSC, oxygen dropped to 85% on 2L NC. once back to bed oxygen did slowly recover after a few minutes back to 90s.
--- NOTE | 2024-08-14 03:50 | PTCARENOTE ---
while sleeping, pt noted to be 87% on 2L NC. oxygen increased to 3L, now 95%.
[2024-08-14] MEDS: STERILE WATER FOR INJECTION 10 ML IV ×3 (04:25→20:05)
[2024-08-14] MEDS: MERREM 500 MG IV ×3 (04:26→20:05)
[2024-08-14 05:09] LABS: Hematocrit 30.3 % (37.0-47.0); Mean Corp Hgb Conc. 29.7 g/dL (33.0-37.0); Mean Corpuscular Hgb 28.8 pg (27.0-31.0); Mean Corpuscular Volume 96.8 fL (81.0-99.0); Mean Platelet Volume 8.3 fL (7.4-10.4); Platelet Count 380 10^3/uL (130-400); Red Blood Cell Count 3.13 10^6/uL (4.20-5.40); Red Cell Dist. Width 20.4 % (11.5-14.5)
[2024-08-14 05:51] LABS: Blood Urea Nitrogen 26 mg/dl (7-17); Calcium 8.8 mg/dl (8.4-10.2); Carbon Dioxide 35 mmol/L (22-30); Chloride 93 mmol/L (98-107); Estimated Creatinine Clearance 36 ml/min; Glucose 68 mg/dl (70-99); Sodium 133 mmol/L (135-145); eGFR > 60.00
[2024-08-14] MEDS: SODIUM CHLORIDE 3% FOR INHALATION 1 VIAL INH ×2 (07:37→18:18)
[2024-08-14] MEDS: DUONEB 3 ML INH ×3 (07:38→18:18)
[2024-08-14] MEDS: HEPARIN 5000 UNITS SC ×2 (09:03→20:06)
[2024-08-14] MEDS: ORETIC 12.5 MG PO (09:04)
[2024-08-14] MEDS: MUCINEX 600 MG PO ×2 (09:04→20:05)
[2024-08-14] MEDS: PEPCID 20 MG PO (09:04)
[2024-08-14] MEDS: LEXAPRO 20 MG PO (09:05)
[2024-08-14] MEDS: VISBIOME 1 CAP PO (09:05)
[2024-08-14] MEDS: ZESTRIL 10 MG PO (09:05)
[2024-08-14] MEDS: LIDOCAINE 4% PATCH TOPICAL (09:06)
[2024-08-14] MEDS: MIRALAX PO (09:07)
--- NOTE | 2024-08-14 09:07 | W.PN.HOSP.TC ---
Today's Communication/Plan
-
wean O2 to off if able
still on meropenem
[facility] when ready for d/c
Assessment / Plan
Assessment / Plan
08/01/24 14:23 Blood/Venous Blood Culture - Preliminary
No Growth in 4 days- Final report to follow
08/01/24 14:18 Blood/Venous Blood Culture - Preliminary
No Growth in 4 days- Final report to follow
08/03/24 11:15 Sputum Respiratory Culture - Final
Rama albicans
08/03/24 11:15 Sputum Gram Stain - Final
08/03/24 18:52 Urine Legionella Urinary Antigen - Final
Negative for Legionella pneumophila Serogroup 1 antigen.
A negative result does not rule out the possiblity of
Legionella infection due to other serogroups or species of
Legionella. Clinical correlation is recommended.
08/03/24 18:52 Urine Streptococcus pneumoniae Antigen (M - Final
Negative for Streptococcus pneumoniae antigen.
A negative result does not exclude infection with
Streptococcus pneumoniae. Clinical correlation is
recommended.
08/02/24 09:30 Nose MRSA Screen - Final
No Methicillin Resistant Staphylococcus aureus isolated.
08/02/24 04:28 Nose Nasal Screen MRSA (PCR) - Final
08/01/24 14:18 Nasal Swab Influenza Types A & B (BRI) - Final
Negative for Influenza A & B, NAAT
Negative results must be combined with clinical observations
and patient history.
Nucleic Acid Amplification test (NAAT)performed on the
[employer] platform.
CTA chest 08/01/24:
1. No evidence of pulmonary embolism.
2. Severe left lower lobe pneumonia.
79-year-old female with cough and confusion
Echo 08/06/2024-normal biventricular size and systolic function. No valvular disease
CT chest- 08/07/24- There is increased extensive consolidation throughout the left lower lobe as well as nodular opacities in the right lower lobe consistent with worsening multifocal pneumonia. There are multiple gas containing foci within the left
lower lobe which appears slightly increased from prior and likely represent an element of cavitary pneumonia. Additionally there is a 4.7 x 3.1 cm and a 3.4 x 2.3 cm gas and fluid containing focus within the left lower lobe which are suspicious for
pulmonary abscesses.
CVS: S1-S2 normal
Chest: few rales B/L
Abdomen: Soft, NT / Bowel sounds present
Extremities: No edema
Awake and alert on BIPAP now
#Severe left lower lobe pneumonia (with ling abscess) in the setting of severe COPD and bilateral lower lobe bronchiectasis with interstitial fibrotic changes--s/p bronch with cultures pending
COVID and influenza negative
Leukocytosis with left shift on admission-improved
Was on 6 L of oxygen then on BiPAP with 10 L of oxygen now on 2 L
Blood cultures negative
Was on Zosyn , changed to Augmentin , Now on Meropenem
Rpt CT with lung abscess- Consulted ID, change AB to Meropenem.
Sputum CX rama
Patient currently off Zithromax and prednisone
Continue Mucinex, 3% saline nebulization, Acapella, Vest
S/P Bronch 08/12/24
Lot of Secretions- Sent for CX-bronc cultures and AFB pending
Off BIPAP-wean oxygen as tolerated on nasal cannula now
Speech and swallow evaluation noted. Video swallow noted. No aspiration
Chest x-ray 08/14/2024
# Cardiology evaluation appreciated-no evidence of CHF. HCTZ resumed for lower extremity edema
# Chronic anemia iron studies unremarkable
Status post 1 unit of PRBC--HGB stable
# COPD-severe with FEV1 1.6L, 68% predicted, severely reduced DLCO on Breztri, Trelegy Ellipta as OP.
Not on exacerbation currently.
Holding trilogy while on DuoNeb.
# WILFRIDO resolved
# Multiple pulmonary nodules-PET scan negative in the past-stable since 2020. Outpatient pulmonary follow-up
# Rheumatoid arthritis-continue Plaquenil
# Hypertension-continue lisinopril/HCTZ
# Anxiety and depression-continue Lexapro, Vilazodone and as needed lorazepam
# Hyperlipidemia-continue statin
# Chronic steroid use for rheumatoid arthritis--watch for need for stress dose steroids--no needs currently
# Underweight with severe protein calorie malnutrition
# History of left breast cancer with history of lumpectomy and radiation 1993
# History of perforated peptic ulcer-add H2 blockers especially with chronic use of steroids
# Ex-smoker
# DVT prophylaxis on Lovenox
# Full code
D/W Pulm
Discussed with nursing
Anticipated Discharge: > 48 hours
Subjective/Interval History
-
Date of Service: August 14, 2024
pt doing OK--no c/o
Objective Data
-
Labs:
Laboratory Results
08/14/24
04:42
WBC 10.0
Hgb 9.0 L
Hct 30.3 L
Plt Count 380
Sodium 133 L
Potassium 5.0
Chloride 93 L
Carbon Dioxide 35 H
BUN 26 H
Creatinine 0.9
Glucose 68 L
Calcium 8.8
Vital Signs:
max temp for 24 hours
08/13/24
23:04
Temp 98.2 F
Vital Signs
Temp Pulse Resp BP Pulse Ox
98.0 F 75 16 133/90 99
08/14/24 07:06 08/14/24 07:38 08/14/24 07:38 08/14/24 06:00 08/14/24 07:38
I&O
08/13/24 08/14/24 08/15/24
06:59 06:59 06:59
Intake Total 320 / 320 960 / 960
Balance 320 / 320 960 / 960
Review of Systems
-
All other systems: Reviewed and negative
Physical Exam
-
General: Well Developed, Well Nourished, No Apparent Distress and Other (underweight)
HEENT: Normocephalic, Atraumatic and Oxygen (2L)
Respiratory: Decreased Breath Sounds (left base--)
Cardiac: Regular Rhythm and S1/S2; Negative Murmur
GI: Soft, Nontender, Nondistended and Normal Bowel Sounds
Musculoskeletal: No Clubbing, No Cyanosis and No Edema
Neuro: Awake and Alert
Psych: Calm
[2024-08-14] MEDS: NON-FORMULARY ITEM 40 MG PO (09:08)
[2024-08-14] MEDS: SENOKOT PO ×2 (09:08→20:04)
[2024-08-14] MEDS: ATIVAN 0.5 MG PO ×2 (13:07→20:13)
--- NOTE | 2024-08-14 16:30 | W.PN.PUL3 ---
Today's Communication / Plan
-
Continue meropenem per infectious disease
Aspiration precautions; diet per [employer]
Continue vest, 3% saline, DuoNebs
Suspect slow recovery given age, comorbidities, chronic immunosuppression
Reviewed with family at bedside
Assessment
-
Patient is a very pleasant 79-year-old female with known history of severe COPD, bilateral lower lobe mild fibrotic changes with traction bronchiectasis and pulmonary nodules who presented to the hospital with increasing cough and some confusion
over the last 2 weeks. Patient reportedly had an episode of pneumonia last year in January and required home oxygen which she eventually improved and was taken off supplemental oxygen. Her last 6-minute walk test in the clinic was unremarkable
without any desaturation. Over the last 2 weeks he started having increasing cough with occasional wheezing and small amount of phlegm production. Patient also noted to be increasingly confused and was noted to be hypoxic with pulse ox down to
82%. She was brought to the emergency room for further workup. Imaging in emergency room was suggestive of dense left lower lobe pneumonia. Pulmonary consultation was requested for further input.
Acute hypoxic respiratory failure.
Severe Left lower lobe pneumonia.
s/p bronchoscopy 08/12
Significant secretions throughout tracheobronchial tree, left worse than right
Postoperative suspected CO2 retention requiring BIPAP now off,
Acute on chronic SOB
Aspiration syndrome
Conditions present UPPER MARKER
R hip fractures s/p cemented bipolar endoprosthesis 02/23/24 s/p mechanical fall
Multiple lung nodules, measuring 3-5mm
s/p Bronchoscopy results 06/12/20: No endobronchial lesions. BAL was performed in both lower lobes and right upper lobe/AFB neg
COPD, severe
Followed by Dr Morrissey, last seen 2020
PFT - FEV1 was 1.26 L or 59% of predicted and previously was 1.50 L or 74% predicted
Cylindrical bronchiectasis RML and lingula
Fibrosis noted on CT, new/progressed
History of tobacco abuse/[id number] smoking history. Quit around 2009
History of pleural effusion
Interstitial lung disease
Rheumatoid arthritis w/ Immunosuppressed status
History of breast cancer s/p Left lumpectomy and axillary node dissection for stage I left breast carcinoma (1993, radiation/no chemo)
Plan/recommendations
At this time, patient appears to be comfortable, surprised at the relative lack of symptoms given findings on bronchoscopy
Speech and swallow evaluation noted -video swallow performed on 08/13 showing mild oral/pharyngeal dysphagia with no aspiration; defer diet to [employer]
Family at bedside confirms that they have suspected she has been aspirating for a while. Unfortunately did not believe this and continued with lack of aspiration precautions according to [id number] at bedside
Pulmonary toilet is rothman
Continue with aggressive airway clearance
Vest therapy
Continue 3% saline
Continue to hold inhaler regimen, would focus on nebulized regimen
DuoNebs [address] chest 08/06/2024: Increase extensive consolidation throughout left lower lobe as well as nodular opacities in the right lower lobe consistent with worsening multifocal pneumonia. There are multiple gas containing foci within the left lower lobe
increased compared to prior. Cavitary pneumonia/lung abscess.
There is a 4.7 X3.1X 3.4cm gas and fluid containing focus within the left lower low suspicion for pulmonary abscess.
CXR from 08/14 shows persistent left lung pneumonia with some improvement in the left lung base, and improved aeration in the right lung as well, possibly due to chest x-ray penetration
Currently on meropenem since 08/07 s/p Augmentin/Zithromax; she received 1 dose of IV vancomycin on 08/01
ID on board, defer antibiotics to them
Cultures from bronchoscopy all show NGTD; cytopathology shows marked acute inflammation and negative for malignancy
Remains on supplemental oxygen; wean down O2 flow rate as tolerated while keeping SpO2 88/95%
History of COPD noted: FEV1 was 1.6 L, 68% of predicted as per pulmonary function testing in April 2024 with severely reduced DLCO. Eosinophil count 0-200
Patient also has baseline bronchiectasis w/ interstitial changes
Dr. Horn reviewed with patient and [id number] at bedside that recovery may be difficult given age, comorbidities, chronic immunosuppression, chronic aspiration
Prior history:
Bilateral lower lobe bronchiectasis with interstitial fibrotic changes. Patient's lower lobe bronchiectasis appears to be related to traction due to lower lobe mild fibrotic changes. I reviewed the previous x-rays and CT scans and fibrosis has not
progressed much. This is probably related to underlying diagnosis of rheumatoid arthritis. She does not have a typical UIP radiological pattern
Multiple pulmonary nodules. Previous PET scan has been negative and over the years nodules have stayed stable suggestive of benign etiology.
Continue follow-up as an outpatient with pulmonary clinic
Patient follows up with Dr. Correa at [facility] and will resume follow-up after discharge
Pulmonary service will continue to follow along
Data:
CT CHEST 07/2024: 1. No evidence of pulmonary embolism.
2. Severe left lower lobe pneumonia.
CT CHEST 01/2024: 1.). The stability of the multiple bilateral pulmonary nodules dating back to 08/11/2020 suggests that they are benign
2). COPD with worsening predominantly interstitial fibrosis and bronchiectasis at the lung bases
3). Minimal left pleural effusion
Total time spent today was 38 minutes for this encounter. Time includes reviewing laboratory test/imaging results, reviewing pertinent medical records, obtaining and reviewing medical history, performing an appropriate exam, ordering medications,
tests and procedures. Time also includes documentation of this encounter, coordinating patient care and communicating with other healthcare professionals. Total time does not include separately billed tests performed on this date of service.
Subjective Data
-
Date of Service:
Date of Service: August 14, 2024
Chief Complaint: Pulmonary Follow Up (Severe pneumonia)
Subjective:
Patient was seen and evaluated today at bedside. BP 141/68, saturating 98% on 2 L/min and HR 78. Her , Brandon, was at bedside and all questions were answered. Patient gets confused at times due to her dementia.
Review of Systems
General: Other (Unobtainable due to dementia)
Objective Data
Data Reviewed
Vital Signs / I&O / Oxygen:
Vital Signs
Temp Pulse Resp BP Pulse Ox
98.0 F 75 16 133/90 99
08/14/24 07:06 08/14/24 07:38 08/14/24 07:38 08/14/24 06:00 08/14/24 07:38
Intake and Output
08/13/24 08/14/24 08/15/24
06:59 06:59 06:59
Intake Total 320 / 320 960 / 960
Balance 320 / 320 960 / 960
SaO2 99
Nasal Cannula flow liters per 2
minute
Physical Exam
General: Respiratory Distress (negative), Comfortable, Other (NAD, thin appearing) and Other (Cachectic; appears deconditioned/weak)
HEENT: Normocephalic, Anicteric and Moist Mucous Membranes
Cardiovascular: S1-S2 and Regular Rhythm
Respiratory: Wheeze (negative), Crackles (Bilaterally (L >R)), Rhonchi (Bilaterally (L >R)) and Non-Labored Respirations
GI: Soft, Non Distended, Non Tender and Normal Bowel Sounds
Neurology: Awake, Alert and Tremors (negative)
Skin: Warm, Dry, Cyanosis (negative) and Jaundice (negative)
Labs/Micro/Reports
Lab Data
08/14/24 04:42
08/14/24 04:42
Microbiology
08/12/24 08:10 Bronch Left Lower Lobe Respiratory Culture - Final
08/12/24 08:10 Bronch Left Lower Lobe Gram Stain - Final
08/12/24 08:10 Lung - Left Acid Fast Bacilli Smear - Preliminary
08/12/24 08:10 Lung - Left Acid Fast Bacilli Culture - Preliminary
08/12/24 08:10 Lung - Left Fungal Culture - Preliminary
Culture in progress.
Positive cultures are reported as soon as detected.
Final report to follow in four to five weeks.
08/08/24 17:42 Sputum Respiratory Culture - Final
Usual Respiratory Juliann
08/08/24 17:42 Sputum Gram Stain - Final
[2024-08-14] MEDS: PLAQUENIL 300 MG PO (17:22)
--- NOTE | 2024-08-14 18:41 | PTCARENOTE ---
OOB for meals + more today. Remains on 2L NC, failed weaning on 1L. Using Acupella as directed. Coughing up thick carvalho/acosta sputum this pm. NSR on tele.
[2024-08-14] MEDS: DUONEB INH (20:00)
[2024-08-14] MEDS: LIPITOR 10 MG PO (22:04)
[2024-08-15] VITALS (12 sets, daily range): BP systolic 115–145; BP diastolic 54–81; BMI 17.0
[2024-08-15] MEDS: MERREM 500 MG IV ×3 (04:26→21:14)
[2024-08-15] MEDS: STERILE WATER FOR INJECTION 10 ML IV ×3 (04:26→21:13)
[2024-08-15 04:48] LABS: Hematocrit 30.2 % (37.0-47.0); Hemoglobin 9.2 g/dL (12.0-16.0); Mean Corp Hgb Conc. 30.5 g/dL (33.0-37.0); Mean Corpuscular Hgb 28.8 pg (27.0-31.0); Mean Corpuscular Volume 94.4 fL (81.0-99.0); Mean Platelet Volume 8.5 fL (7.4-10.4); Platelet Count 412 10^3/uL (130-400); Red Cell Dist. Width 20.3 % (11.5-14.5); White Blood Cell Count 7.9 10^3/uL (4.8-10.8)
[2024-08-15 05:16] LABS: Blood Urea Nitrogen 21 mg/dl (7-17); Calcium 8.9 mg/dl (8.4-10.2); Carbon Dioxide 35 mmol/L (22-30); Chloride 91 mmol/L (98-107); Estimated Creatinine Clearance 33 ml/min; Glucose 80 mg/dl (70-99); Magnesium 1.8 mg/dl (1.6-2.3); Potassium 4.9 mmol/L (3.5-5.1); Sodium 132 mmol/L (135-145); eGFR > 60.00
[2024-08-15] MEDS: SODIUM CHLORIDE 3% FOR INHALATION 1 VIAL INH ×2 (07:38→19:30)
[2024-08-15] MEDS: DUONEB 3 ML INH ×3 (07:38→19:30)
--- NOTE | 2024-08-15 08:16 | W.PN.HOSP.TC ---
Today's Communication/Plan
-
PICC line
possible d/c to SNF Friday?
Assessment / Plan
Assessment / Plan
08/01/24 14:23 Blood/Venous Blood Culture - Preliminary
No Growth in 4 days- Final report to follow
08/01/24 14:18 Blood/Venous Blood Culture - Preliminary
No Growth in 4 days- Final report to follow
08/03/24 11:15 Sputum Respiratory Culture - Final
Lee albicans
08/03/24 11:15 Sputum Gram Stain - Final
08/03/24 18:52 Urine Legionella Urinary Antigen - Final
Negative for Legionella pneumophila Serogroup 1 antigen.
A negative result does not rule out the possiblity of
Legionella infection due to other serogroups or species of
Legionella. Clinical correlation is recommended.
08/03/24 18:52 Urine Streptococcus pneumoniae Antigen (M - Final
Negative for Streptococcus pneumoniae antigen.
A negative result does not exclude infection with
Streptococcus pneumoniae. Clinical correlation is
recommended.
08/02/24 09:30 Nose MRSA Screen - Final
No Methicillin Resistant Staphylococcus aureus isolated.
08/02/24 04:28 Nose Nasal Screen MRSA (PCR) - Final
08/01/24 14:18 Nasal Swab Influenza Types A & B (BRI) - Final
Negative for Influenza A & B, NAAT
Negative results must be combined with clinical observations
and patient history.
Nucleic Acid Amplification test (NAAT)performed on the
[employer] platform.
CTA chest 08/01/24:
1. No evidence of pulmonary embolism.
2. Severe left lower lobe pneumonia.
79-year-old female with cough and confusion
Echo 08/06/2024-normal biventricular size and systolic function. No valvular disease
CT chest- 08/07/24- There is increased extensive consolidation throughout the left lower lobe as well as nodular opacities in the right lower lobe consistent with worsening multifocal pneumonia. There are multiple gas containing foci within the left
lower lobe which appears slightly increased from prior and likely represent an element of cavitary pneumonia. Additionally there is a 4.7 x 3.1 cm and a 3.4 x 2.3 cm gas and fluid containing focus within the left lower lobe which are suspicious for
pulmonary abscesses.
#Severe left lower lobe pneumonia (with lung abscess) in the setting of severe COPD and bilateral lower lobe bronchiectasis with interstitial fibrotic changes--s/p bronch with cultures showing few resp samara
COVID and influenza negative
Leukocytosis with left shift on admission-improved
Was on 6 L of oxygen then on BiPAP with 10 L of oxygen now on 2 L
Blood cultures negative
Was on Zosyn , changed to Augmentin , Now on Meropenem
Rpt CT with lung abscess- Consulted ID, change AB to Meropenem--4 weeks IV meropenem as per ID, will order PICC line
Sputum CX lee
Patient currently off Zithromax and prednisone
Continue Mucinex, 3% saline nebulization, Acapella, Vest
S/P Bronch 08/12/24
Lot of Secretions- Sent for CX-bronc cultures and AFB pending
Off BIPAP-wean oxygen as tolerated on nasal cannula now
Speech and swallow evaluation noted. Video swallow noted. No aspiration
Chest x-ray 08/14/2024
# Cardiology evaluation appreciated-no evidence of CHF. HCTZ resumed for lower extremity edema
# Chronic anemia iron studies unremarkable
Status post 1 unit of PRBC--HGB stable
# COPD-severe with FEV1 1.6L, 68% predicted, severely reduced DLCO on Breztri, Andradelestacy Ellipta as OP.
Not on exacerbation currently.
Holding trilogy while on DuoNeb.
# WILFRIDO resolved
# Multiple pulmonary nodules-PET scan negative in the past-stable since 2020. Outpatient pulmonary follow-up
# Rheumatoid arthritis-continue Plaquenil
# Hypertension-continue lisinopril/HCTZ
# Anxiety and depression-continue Lexapro, Vilazodone and as needed lorazepam
# Hyperlipidemia-continue statin
# Chronic steroid use for rheumatoid arthritis--watch for need for stress dose steroids--no needs currently
# Underweight with severe protein calorie malnutrition
# History of left breast cancer with history of lumpectomy and radiation 1993
# History of perforated peptic ulcer-add H2 blockers especially with chronic use of steroids
# Ex-smoker
# DVT prophylaxis on Lovenox
# Full code
D/W Pulm
Discussed with nursing
Anticipated Discharge: 24 - 48 hours
Subjective/Interval History
-
Date of Service: August 15, 2024
pt had good night, slept
Objective Data
-
Labs:
Laboratory Results
08/15/24
04:21
WBC 7.9
Hgb 9.2 L
Hct 30.2 L
Plt Count 412 H
Sodium 132 L
Potassium 4.9
Chloride 91 L
Carbon Dioxide 35 H
BUN 21 H
Creatinine 0.9
Glucose 80
Calcium 8.9
Vital Signs:
max temp for 24 hours
08/14/24
23:00
Temp 98.8 F
Vital Signs
Temp Pulse Resp BP Pulse Ox
97.5 F 89 16 124/60 96
08/15/24 03:00 08/15/24 07:39 08/15/24 07:39 08/14/24 22:00 08/15/24 07:39
I&O
08/14/24 08/15/24 08/16/24
06:59 06:59 06:59
Intake Total 960 / 960 1150 / 1150
Output Total 500 / 500
Balance 960 / 960 650 / 650
Review of Systems
-
All other systems: Reviewed and negative
Physical Exam
-
General: Cachectic
HEENT: Normocephalic, Atraumatic and Oxygen
Respiratory: Decreased Breath Sounds (left base)
Cardiac: Regular Rhythm and S1/S2; Negative Murmur
GI: Soft, Nontender, Nondistended and Normal Bowel Sounds
Musculoskeletal: No Clubbing, No Cyanosis and No Edema
Neuro: Awake and Alert
[2024-08-15] MEDS: ORETIC 12.5 MG PO (08:41)
[2024-08-15] MEDS: HEPARIN 5000 UNITS SC ×2 (08:41→21:06)
[2024-08-15] MEDS: SENOKOT 17.2 MG PO ×2 (08:41→21:10)
[2024-08-15] MEDS: MIRALAX 17 GRAMS PO (08:41)
[2024-08-15] MEDS: MUCINEX 600 MG PO ×2 (08:41→21:06)
[2024-08-15] MEDS: PEPCID 20 MG PO (08:42)
[2024-08-15] MEDS: LEXAPRO 20 MG PO (08:42)
[2024-08-15] MEDS: NON-FORMULARY ITEM 40 MG PO (08:42)
[2024-08-15] MEDS: VISBIOME 1 CAP PO (08:42)
[2024-08-15] MEDS: ZESTRIL 10 MG PO (08:46)
[2024-08-15] MEDS: LIDOCAINE 4% PATCH TOPICAL (08:54)
--- NOTE | 2024-08-15 16:18 | PTCARENOTE ---
Pulse ox 85% on room air today, pulse ox 97% on 2 liters oxygen via nasal cannula. 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 CH bath completed. Patient educated about PICC line rational and infection control
procedures. Patient has been out of bed to chair in good spirits. Denying pain when asked, family at bedside.
--- NOTE | 2024-08-15 16:40 | W.PN.PUL3 ---
Today's Communication / Plan
-
Continue meropenem per infectious disease
Aspiration precautions; diet per KILN REMOVER
Continue vest, 3% saline, DuoNebs, prn mucomyst
Follow-up BAL cultures from bronchoscopy
Suspect slow recovery given age, comorbidities, chronic immunosuppression
Reviewed with family at bedside
Assessment
-
Patient is a very pleasant 79-year-old female with known history of severe COPD, bilateral lower lobe mild fibrotic changes with traction bronchiectasis and pulmonary nodules who presented to the hospital with increasing cough and some confusion
over the last 2 weeks. Patient reportedly had an episode of pneumonia last year in January and required home oxygen which she eventually improved and was taken off supplemental oxygen. Her last 6-minute walk test in the clinic was unremarkable
without any desaturation. Over the last 2 weeks he started having increasing cough with occasional wheezing and small amount of phlegm production. Patient also noted to be increasingly confused and was noted to be hypoxic with pulse ox down to
82%. She was brought to the emergency room for further workup. Imaging in emergency room was suggestive of dense left lower lobe pneumonia. Pulmonary consultation was requested for further input.
Acute hypoxic respiratory failure.
Severe Left lower lobe pneumonia.
s/p bronchoscopy 08/12
Significant secretions throughout tracheobronchial tree, left worse than right
Postoperative suspected CO2 retention requiring BIPAP now off,
Acute on chronic SOB
Aspiration syndrome
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
R hip fractures s/p cemented bipolar endoprosthesis 02/23/24 s/p mechanical fall
Multiple lung nodules, measuring 3-5mm
s/p Bronchoscopy results 06/12/20: No endobronchial lesions. BAL was performed in both lower lobes and right upper lobe/AFB neg
COPD, severe
Followed by Dr Morrissey, last seen 2020
PFT - FEV1 was 1.26 L or 59% of predicted and previously was 1.50 L or 74% predicted
Cylindrical bronchiectasis RML and lingula
Fibrosis noted on CT, new/progressed
History of tobacco abuse/[id number] smoking history. Quit around 2009
History of pleural effusion
Interstitial lung disease
Rheumatoid arthritis w/ Immunosuppressed status
History of breast cancer s/p Left lumpectomy and axillary node dissection for stage I left breast carcinoma (1993, radiation/no chemo)
Plan/recommendations
At this time, patient appears to be comfortable, surprised at the relative lack of symptoms given findings on bronchoscopy
Speech and swallow evaluation noted -video swallow performed on 08/13 showing mild oral/pharyngeal dysphagia with no aspiration; defer diet to KILN REMOVER
Family at bedside confirms that they have suspected she has been aspirating for a while. Unfortunately did not believe this and continued with lack of aspiration precautions according to [id number] at bedside
Pulmonary toilet is rothman
Continue with aggressive airway clearance
Vest therapy
Continue 3% saline with prn mucomyst
Continue to hold inhaler regimen, would focus on nebulized regimen
DuoNebs [address] chest 08/06/2024: Increased extensive consolidation throughout left lower lobe as well as nodular opacities in the right lower lobe consistent with worsening multifocal pneumonia. There are multiple gas containing foci within the left lower lobe
increased compared to prior. Cavitary pneumonia/lung abscess.
There is a 4.7 X3.1X 3.4cm gas and fluid containing focus within the left lower low suspicion for pulmonary abscess.
CXR from 08/14 shows persistent left lung pneumonia with some improvement in the left lung base, and improved aeration in the right lung as well, possibly due to chest x-ray penetration
Currently on meropenem since 08/07 s/p Augmentin/Zithromax; she received 1 dose of IV vancomycin on 08/01
ID on board, defer antibiotics to them
Cultures from bronchoscopy all show NGTD; cytopathology shows marked acute inflammation and negative for malignancy
Sputum culture from 08/03/2024 grew Rama albicans, likely colonization
Remains on supplemental oxygen; wean down O2 flow rate as tolerated while keeping SpO2 88-95%
History of COPD noted: FEV1 was 1.6 L, 68% of predicted as per pulmonary function testing in April 2024 with severely reduced DLCO. Eosinophil count 0-200
Patient also has baseline bronchiectasis w/ interstitial changes
Dr. Horn reviewed with patient and [id number] at bedside that recovery may be difficult given age, comorbidities, chronic immunosuppression, chronic aspiration
Prior history:
Bilateral lower lobe bronchiectasis with interstitial fibrotic changes. Patient's lower lobe bronchiectasis appears to be related to traction due to lower lobe mild fibrotic changes. I reviewed the previous x-rays and CT scans and fibrosis has not
progressed much. This is probably related to underlying diagnosis of rheumatoid arthritis. She does not have a typical UIP radiological pattern
Multiple pulmonary nodules. Previous PET scan has been negative and over the years nodules have stayed stable suggestive of benign etiology.
Continue follow-up as an outpatient with pulmonary clinic
Patient follows up with Dr. Correa at [facility] and will resume follow-up after discharge
Pulmonary service will continue to follow along
Data:
CT CHEST 07/2024: 1. No evidence of pulmonary embolism.
2. Severe left lower lobe pneumonia.
CT CHEST 01/2024: 1.). The stability of the multiple bilateral pulmonary nodules dating back to 08/11/2020 suggests that they are benign
2). COPD with worsening predominantly interstitial fibrosis and bronchiectasis at the lung bases
3). Minimal left pleural effusion
Total time spent today was 41 minutes for this encounter. Time includes reviewing laboratory test/imaging results, reviewing pertinent medical records, obtaining and reviewing medical history, performing an appropriate exam, ordering medications,
tests and procedures. Time also includes documentation of this encounter, coordinating patient care and communicating with other healthcare professionals. Total time does not include separately billed tests performed on this date of service.
Subjective Data
-
Date of Service:
Date of Service: August 15, 2024
Chief Complaint: Pulmonary Follow Up (Severe pneumonia)
Subjective:
Patient was seen and evaluated this morning (late note entry). Resting in bed in no acute distress. Multiple fan members at bedside and all questions were answered. BP 133/75, heart rate 77, saturating 99% on 2 L/min nasal cannula. Patient still
has some phlegm that she has difficulty bringing up, but denies chest pain, SOB at rest, fevers or chills.
Review of Systems
General: Other (Negative unless mentioned above)
Objective Data
Data Reviewed
Vital Signs / I&O / Oxygen:
Vital Signs
Temp Pulse Resp BP Pulse Ox
98.1 F 90 16 126/61 94
08/15/24 07:15 08/15/24 08:46 08/15/24 07:39 08/15/24 08:46 08/15/24 08:54
Intake and Output
08/14/24 08/15/24 08/16/24
06:59 06:59 06:59
Intake Total 960 / 960 1150 / 1150
Output Total 500 / 500
Balance 960 / 960 650 / 650
SaO2 94
Nasal Cannula flow liters per 2
minute
Physical Exam
General: Respiratory Distress (negative), Comfortable, Other (NAD, thin appearing) and Other (Cachectic; appears deconditioned/weak)
HEENT: Normocephalic, Anicteric and Moist Mucous Membranes
Cardiovascular: S1-S2 and Regular Rhythm
Respiratory: Wheeze (negative), Crackles (Bilaterally (L >R)), Rhonchi (Bilaterally (L >R)) and Non-Labored Respirations
GI: Soft, Non Distended, Non Tender and Normal Bowel Sounds
Neurology: Awake, Alert and Tremors (negative)
Skin: Warm, Dry, Cyanosis (negative) and Jaundice (negative)
Labs/Micro/Reports
Lab Data
08/15/24 04:21
08/15/24 04:21
Microbiology
08/12/24 08:10 Bronch Left Lower Lobe Respiratory Culture - Final
08/12/24 08:10 Bronch Left Lower Lobe Gram Stain - Final
08/12/24 08:10 Lung - Left Acid Fast Bacilli Smear - Preliminary
08/12/24 08:10 Lung - Left Acid Fast Bacilli Culture - Preliminary
08/12/24 08:10 Lung - Left Fungal Culture - Preliminary
Culture in progress.
Positive cultures are reported as soon as detected.
Final report to follow in four to five weeks.
[2024-08-15] MEDS: PLAQUENIL 300 MG PO (17:13)
--- NOTE | 2024-08-15 17:37 | PTCARENOTE ---
Patient for transfer to 317 bed 2. Report given to Zeinab STEELE. Patient educated about plan of care, aware of new room. Belomngings packed up by staff and . Meds from home tubed to new unit.
--- NOTE | 2024-08-15 18:44 | PTCARENOTE ---
report given from IMU, Pt received. pt asssited from WC to bed. PT on high fall risk. bed alarm on, yellow bracelet on door. PT oriented to room and call whiteside. PT with oxygen on.
[2024-08-15] MEDS: LIPITOR 10 MG PO (21:10)
[2024-08-15] MEDS: ATIVAN 0.5 MG PO (21:10)
--- NOTE | 2024-08-15 21:32 | PTCARENOTE ---
pt missing lt hearing aid. belongings searched, call placed to IMU no hearing aid found. will notify nurse geothermal plant manager. hearing aids last documented present with pt on 08/10
[2024-08-16 03:45] VITALS: BP 103/62
[2024-08-16] MEDS: STERILE WATER FOR INJECTION 10 ML IV ×3 (03:54→20:21)
[2024-08-16] MEDS: MERREM 500 MG IV ×3 (03:55→20:20)
--- NOTE | 2024-08-16 04:28 | PTCARENOTE ---
Missing hearing aid was located on the floor. pt now has both hearing aids
[2024-08-16 06:44] LABS: Glucose - Point of Care 66 mg/dl (70-99)
--- NOTE | 2024-08-16 06:50 | PTCARENOTE ---
0645, pt lethargic, confused conversation, vss 98.1-112/60-18-97% 2 L, Blood glucose 66, juice given, CANCER REGISTRY COORDINATOR notified
[2024-08-16 07:00] VITALS: BP 106/59
[2024-08-16 07:05] LABS: Glucose - Point of Care 74 mg/dl (70-99)
[2024-08-16] MEDS: DUONEB 3 ML INH ×3 (07:31→19:20)
[2024-08-16] MEDS: SODIUM CHLORIDE 3% FOR INHALATION 1 VIAL INH ×2 (07:31→19:20)
[2024-08-16 08:16] LABS: Glucose - Point of Care 73 mg/dl (70-99)
[2024-08-16 08:26] LABS: Hematocrit 31.2 % (37.0-47.0); Hemoglobin 9.5 g/dL (12.0-16.0); Mean Corp Hgb Conc. 30.4 g/dL (33.0-37.0); Mean Corpuscular Hgb 28.8 pg (27.0-31.0); Mean Corpuscular Volume 94.5 fL (81.0-99.0); Mean Platelet Volume 8.5 fL (7.4-10.4); Platelet Count 394 10^3/uL (130-400); White Blood Cell Count 10.3 10^3/uL (4.8-10.8)
[2024-08-16] MEDS: LIDOCAINE 4% PATCH 1 PATCH TOPICAL (08:38)
[2024-08-16] MEDS: PEPCID 20 MG PO (08:39)
[2024-08-16] MEDS: SENOKOT 17.2 MG PO ×2 (08:39→20:21)
[2024-08-16] MEDS: ORETIC 12.5 MG PO (08:39)
[2024-08-16] MEDS: MUCINEX 600 MG PO ×2 (08:39→20:21)
[2024-08-16] MEDS: MIRALAX 17 GRAMS PO (08:39)
[2024-08-16] MEDS: LEXAPRO 20 MG PO (08:40)
[2024-08-16] MEDS: VISBIOME 1 CAP PO (08:40)
[2024-08-16] MEDS: HEPARIN 5000 UNITS SC ×2 (08:40→20:20)
[2024-08-16] MEDS: ZESTRIL 10 MG PO (08:40)
--- NOTE | 2024-08-16 09:07 | W.PN.PUL3 ---
Today's Communication / Plan
-
Poor airway clearance, weak cough is likely the cause
s/p bronchoscopy, cultures thus far negative, could consider stopping all abx and observe off, ID following (last seen 08/13)
I discussed airway clearance measures with patient and family, patient is sleeping all day in the bed
D/c planning to rehab per team, agree with this
Otherwise, can arrange OP FU for further steps
Assessment
-
Patient is a very pleasant 79-year-old female with known history of severe COPD, bilateral lower lobe mild fibrotic changes with traction bronchiectasis and pulmonary nodules who presented to the hospital with increasing cough and some confusion
over the last 2 weeks. Patient reportedly had an episode of pneumonia last year in January and required home oxygen which she eventually improved and was taken off supplemental oxygen. Her last 6-minute walk test in the clinic was unremarkable
without any desaturation. Over the last 2 weeks he started having increasing cough with occasional wheezing and small amount of phlegm production. Patient also noted to be increasingly confused and was noted to be hypoxic with pulse ox down to
82%. She was brought to the emergency room for further workup. Imaging in emergency room was suggestive of dense left lower lobe pneumonia. Pulmonary consultation was requested for further input.
Acute hypoxic respiratory failure.
Severe Left lower lobe pneumonia.
s/p bronchoscopy 08/12
Significant secretions throughout tracheobronchial tree, left worse than right
Postoperative suspected CO2 retention requiring BIPAP now off,
Acute on chronic SOB
Aspiration syndrome
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
R hip fractures s/p cemented bipolar endoprosthesis 02/23/24 s/p mechanical fall
Multiple lung nodules, measuring 3-5mm
s/p Bronchoscopy results 06/12/20: No endobronchial lesions. BAL was performed in both lower lobes and right upper lobe/AFB neg
COPD, severe
Followed by Dr Morrissey, last seen 2020
PFT - FEV1 was 1.26 L or 59% of predicted and previously was 1.50 L or 74% predicted
Cylindrical bronchiectasis RML and lingula
Fibrosis noted on CT, new/progressed
History of tobacco abuse/[id number] smoking history. Quit around 2009
History of pleural effusion
Interstitial lung disease
Rheumatoid arthritis w/ Immunosuppressed status
History of breast cancer s/p Left lumpectomy and axillary node dissection for stage I left breast carcinoma (1993, radiation/no chemo)
Plan/recommendations
At this time, patient appears to be comfortable, surprised at the relative lack of symptoms given findings on bronchoscopy
Speech and swallow evaluation noted -video swallow performed on 08/13 showing mild oral/pharyngeal dysphagia with no aspiration; defer diet to SILK HANGER
Family at bedside confirms that they have suspected she has been aspirating for a while. Unfortunately did not believe this and continued with lack of aspiration precautions according to [id number] at bedside
Pulmonary toilet is rothman--poor baseline airway clearance efforts
Continue with aggressive airway clearance
Vest therapy
Continue 3% saline with prn mucomyst
Continue to hold inhaler regimen, would focus on nebulized regimen
DuoNebs 3 times daily
I reviewed this with patient and family member today
CT chest 08/06/2024: Increased extensive consolidation throughout left lower lobe as well as nodular opacities in the right lower lobe consistent with worsening multifocal pneumonia. There are multiple gas containing foci within the left lower lobe
increased compared to prior. Cavitary pneumonia/lung abscess.
There is a 4.7 X3.1X 3.4cm gas and fluid containing focus within the left lower low suspicion for pulmonary abscess.
CXR from 08/14 shows persistent left lung pneumonia with some improvement in the left lung base, and improved aeration in the right lung as well, possibly due to chest x-ray penetration
Currently on meropenem since 08/07 s/p Augmentin/Zithromax; she received 1 dose of IV vancomycin on 08/01
ID on board, defer antibiotics to them
Cultures from bronchoscopy all show NGTD; cytopathology shows marked acute inflammation and negative for malignancy
Sputum culture from 08/03/2024 grew Rama albicans, likely colonization
Would stop all abx and observe off
Remains on supplemental oxygen; wean down O2 flow rate as tolerated while keeping SpO2 88-95%
History of COPD noted: FEV1 was 1.6 L, 68% of predicted as per pulmonary function testing in April 2024 with severely reduced DLCO. Eosinophil count 0-200
Patient also has baseline bronchiectasis w/ interstitial changes
Dr. Horn reviewed with patient and [id number] at bedside that recovery may be difficult given age, comorbidities, chronic immunosuppression, chronic aspiration
Prior history:
Bilateral lower lobe bronchiectasis with interstitial fibrotic changes. Patient's lower lobe bronchiectasis appears to be related to traction due to lower lobe mild fibrotic changes. I reviewed the previous x-rays and CT scans and fibrosis has not
progressed much. This is probably related to underlying diagnosis of rheumatoid arthritis. She does not have a typical UIP radiological pattern
Multiple pulmonary nodules. Previous PET scan has been negative and over the years nodules have stayed stable suggestive of benign etiology.
Continue follow-up as an outpatient with pulmonary clinic
Patient follows up with Dr. Correa at [facility] and will resume follow-up after discharge
D/c planning per team
Diagnostic Data
CXR 08/15/24- Right PICC tip in the mid third of the superior vena cava. No pneumothorax. No other significant interval change.
08/13/24- Persistent left lung pneumonia, with improved aeration at the left lung base. Subtle air-fluid levels are noted superimposed on the left mid to lower lung zone, consistent with parenchymal cavities, possibly related to necrotizing
pneumonia. Mild thickening along the left major fissure, which could represent inflammatory reaction or fluid.
CT CHEST 08/06/2024: There is increased extensive consolidation throughout the left lower lobe as well as nodular opacities in the right lower lobe consistent with worsening multifocal pneumonia. There are multiple gas containing foci within the
left lower lobe which appears slightly increased from prior and likely represent an element of cavitary pneumonia. Additionally there is a 4.7 x 3.1 cm and a 3.4 x 2.3 cm gas and fluid containing focus within the left lower lobe which are suspicious
for pulmonary abscesses.
CT CHEST 01/2024: 1.). The stability of the multiple bilateral pulmonary nodules dating back to 08/11/2020 suggests that they are benign
2). COPD with worsening predominantly interstitial fibrosis and bronchiectasis at the lung bases
3). Minimal left pleural effusion
ECHO 08/06/24- Normal biventricular size and systolic function without regional wall motion abnormality. No significant valvular disease. No prior study available for comparison.
-----
Total time spent today was 51 minutes for this encounter. Time includes reviewing laboratory test/imaging results, reviewing pertinent medical records, obtaining and reviewing medical history, performing an appropriate exam, ordering medications,
tests and procedures. Time also includes documentation of this encounter, coordinating patient care and communicating with other healthcare professionals. Total time does not include separately billed tests performed on this date of service.
Subjective Data
-
Date of Service:
Date of Service: August 16, 2024
Chief Complaint: Pulmonary Follow Up (Severe pneumonia)
Subjective:
Sleeping, family member at bedside
No new complaints
Objective Data
Data Reviewed
Vital Signs / I&O / Oxygen:
Vital Signs
Temp Pulse Resp BP Pulse Ox
97.7 F 81 16 106/59 99
08/16/24 07:00 08/16/24 07:37 08/16/24 07:37 08/16/24 07:00 08/16/24 07:37
Intake and Output
08/15/24 08/16/24 08/17/24
06:59 06:59 06:59
Intake Total 1150 / 1150
Output Total 500 / 500
Balance 650 / 650
SaO2 99
Nasal Cannula flow liters per 2
minute
Physical Exam
General: Respiratory Distress (negative), Comfortable, Other (NAD, thin appearing) and Other (Cachectic; appears deconditioned/weak)
HEENT: Normocephalic, Anicteric and Moist Mucous Membranes
Cardiovascular: S1-S2 and Regular Rhythm
Respiratory: Wheeze (negative), Crackles (Bilaterally (L >R)), Rhonchi (Bilaterally (L >R)) and Non-Labored Respirations
GI: Soft, Non Distended, Non Tender and Normal Bowel Sounds
Neurology: Awake, Alert and Tremors (negative)
Skin: Warm, Dry, Cyanosis (negative) and Jaundice (negative)
Labs/Micro/Reports
Lab Data
08/16/24 07:32
Microbiology
08/12/24 08:10 Bronch Left Lower Lobe Respiratory Culture - Final
08/12/24 08:10 Bronch Left Lower Lobe Gram Stain - Final
08/12/24 08:10 Lung - Left Acid Fast Bacilli Smear - Preliminary
08/12/24 08:10 Lung - Left Acid Fast Bacilli Culture - Preliminary
[2024-08-16 09:10] LABS: ALT (SGPT) 28 U/L (0-35); AST (SGOT) 45 U/L (14-36); Albumin 2.5 g/dl (3.5-5.0); Alkaline Phosphatase 92 U/L (38-126); Blood Urea Nitrogen 17 mg/dl (7-17); Carbon Dioxide 38 mmol/L (22-30); Chloride 90 mmol/L (98-107); Estimated Creatinine Clearance 37 ml/min; Glucose 76 mg/dl (70-99); Magnesium 1.8 mg/dl (1.6-2.3); Potassium 4.8 mmol/L (3.5-5.1); Sodium 132 mmol/L (135-145); Total Bilirubin 0.4 mg/dl (0.2-1.3); Total Protein 5.8 g/dl (6.3-8.2); eGFR > 60.00
[2024-08-16] MEDS: NON-FORMULARY ITEM 40 MG PO (09:11)
--- NOTE | 2024-08-16 10:23 | W.PN.ID1 ---
Date of Service
Date of Service: August 16, 2024
Today's Communication
- Continue with meropenem (d#)
- has picc line
- script provided to bottle caser 08/16
Assessment / Plan
Pulmonary Abscess
Dysphagia
Severe COPD
Bronchiectasis
RA on chronic prednisone 5 mg PO qday and plaquneil
Cachexia
- 08/12 bronch cultures: routine, fungal and AFB in progress - smears/gram stain negative, no growth to date
- 08/08 sputum - usual resp samara
- 08/03 sputum - C albicans - normal samara
- Continue with meropenem (d#)
- has picc line
- script provided to bottle caser 08/16
- stable for dc from ID perspective
����������������������������������������������������������
Chief Complaint
-: Pneumonia and Other (Pulmonary abscess)
Subjective / Review of Systems
afebrile
bp stable
Vital Signs / Physical Exam
Vital Signs
Vital Signs
Temp Pulse Resp BP Pulse Ox
97.7 F 81 16 106/59 99
08/16/24 07:00 08/16/24 07:37 08/16/24 07:37 08/16/24 07:00 08/16/24 07:37
Physical Exam
Constitutional: No Acute Distress, Chronically Ill and Cachetic
Cardiovascular: Regular Rate and S1/S2; Negative Murmur or Rub
Pulmonary: Clear and Symmetric; Negative Wheezes or Rales
Gastrointestinal: Soft, Non Tender, Non Distended and Normal Bowel Sounds
Skin: Warm and Dry; Negative Rash or Jaundice
Objective Data
Lab Data
Lab Results
08/16/24 07:32
08/16/24 07:32
ESR 84 mm/hour (0-20) H 08/09/24 06:23
PT 13.8 Sec (11.4-14.6) 08/12/24 06:53
INR 1.01 08/12/24 06:53
Estimated Creat Clear 37 ml/min 08/16/24 07:32
Lactic Acid 0.8 mmol/L (0.7-2.0) 08/01/24 14:18
Total Bilirubin 0.4 mg/dl (0.2-1.3) 08/16/24 07:32
AST 45 U/L (14-36) H 08/16/24 07:32
ALT 28 U/L (0-35) 08/16/24 07:32
Alkaline Phosphatase 92 U/L (38-126) 08/16/24 07:32
C-Reactive Protein 82.10 mg/L (0.0-10.00) H 08/09/24 06:23
Most recent labs reviewed.
Micro Results:
08/12/24 08:10 Respiratory Culture - Final
Bronch Left Lower Lobe Gram Stain - Final
08/12/24 08:10 Acid Fast Bacilli Smear - Preliminary
Lung - Left Acid Fast Bacilli Culture - Preliminary
08/12/24 08:10 Fungal Culture - Preliminary
Lung - Left Culture in progress.
Positive cultures are reported as soon as detected.
Final report to follow in four to five weeks.
08/08/24 17:42 Respiratory Culture - Final
Sputum Usual Respiratory Samara
Gram Stain - Final
08/01/24 14:23 Blood Culture - Final
Blood/Venous No Growth - Final Report
08/01/24 14:18 Blood Culture - Final
Blood/Venous No Growth - Final Report
08/03/24 11:15 Respiratory Culture - Final
Sputum Rama albicans
Gram Stain - Final
08/03/24 18:52 Legionella Urinary Antigen - Final
Urine Negative for Legionella pneumophila Serogroup 1 antigen.
A negative result does not rule out the possiblity of
Legionella infection due to other serogroups or species of
Legionella. Clinical correlation is recommended.
Streptococcus pneumoniae Antigen (M - Final
Negative for Streptococcus pneumoniae antigen.
A negative result does not exclude infection with
Streptococcus pneumoniae. Clinical correlation is
recommended.
08/02/24 09:30 MRSA Screen - Final
Nose No Methicillin Resistant Staphylococcus aureus isolated.
08/02/24 04:28 Nasal Screen MRSA (PCR) - Final
Nose
08/01/24 14:18 Influenza Types A & B (BRI) - Final
Nasal Swab Negative for Influenza A & B, NAAT
Negative results must be combined with clinical observations
and patient history.
Nucleic Acid Amplification test (NAAT)performed on the
[employer] platform.
[2024-08-16 10:35] LABS: Glucose - Point of Care 123 mg/dl (70-99)
--- NOTE | 2024-08-16 10:47 | CM ---
Addendum entered by Becka Ambriz 08/16/24 11:44:
Received IV Meropenem script 500 mg [id number]
placed copy in chart, [facility], notified Erlinda at [facility]
No bed available today per [facility]
Original Note:
Patient seen at bedside
LM for Erlinda at [facility]
careport updated -PICC info
PLAN: [facility], pending bed availability, IV antibiotic
[2024-08-16 11:00] VITALS: BP 128/59
[2024-08-16 15:00] VITALS: BP 103/57
--- NOTE | 2024-08-16 17:24 | W.PN.HOSP.TC ---
Today's Communication/Plan
-
OK for rehab when a bed is available
Hold HCTZ
Assessment / Plan
Assessment / Plan
08/01/24 14:23 Blood/Venous Blood Culture - Preliminary
No Growth in 4 days- Final report to follow
08/01/24 14:18 Blood/Venous Blood Culture - Preliminary
No Growth in 4 days- Final report to follow
08/03/24 11:15 Sputum Respiratory Culture - Final
Lee albicans
08/03/24 11:15 Sputum Gram Stain - Final
08/03/24 18:52 Urine Legionella Urinary Antigen - Final
Negative for Legionella pneumophila Serogroup 1 antigen.
A negative result does not rule out the possiblity of
Legionella infection due to other serogroups or species of
Legionella. Clinical correlation is recommended.
08/03/24 18:52 Urine Streptococcus pneumoniae Antigen (M - Final
Negative for Streptococcus pneumoniae antigen.
A negative result does not exclude infection with
Streptococcus pneumoniae. Clinical correlation is
recommended.
08/02/24 09:30 Nose MRSA Screen - Final
No Methicillin Resistant Staphylococcus aureus isolated.
08/02/24 04:28 Nose Nasal Screen MRSA (PCR) - Final
08/01/24 14:18 Nasal Swab Influenza Types A & B (BRI) - Final
Negative for Influenza A & B, NAAT
Negative results must be combined with clinical observations
and patient history.
Nucleic Acid Amplification test (NAAT)performed on the
[employer] platform.
CTA chest 08/01/24:
1. No evidence of pulmonary embolism.
2. Severe left lower lobe pneumonia.
79-year-old female with cough and confusion
Echo 08/06/2024-normal biventricular size and systolic function. No valvular disease
CT chest- 08/07/24- There is increased extensive consolidation throughout the left lower lobe as well as nodular opacities in the right lower lobe consistent with worsening multifocal pneumonia. There are multiple gas containing foci within the left
lower lobe which appears slightly increased from prior and likely represent an element of cavitary pneumonia. Additionally there is a 4.7 x 3.1 cm and a 3.4 x 2.3 cm gas and fluid containing focus within the left lower lobe which are suspicious for
pulmonary abscesses.
#Severe left lower lobe pneumonia (with lung abscess) in the setting of severe COPD and bilateral lower lobe bronchiectasis with interstitial fibrotic changes--s/p bronch with cultures showing few resp samara
COVID and influenza negative
Leukocytosis with left shift on admission-improved
Was on 6 L of oxygen then on BiPAP with 10 L of oxygen now on 2 L
Blood cultures negative
Was on Zosyn , changed to Augmentin , Now on Meropenem
Rpt CT with lung abscess- Consulted ID, change AB to Meropenem--4 weeks IV meropenem as per ID, will order PICC line
Sputum CX lee
Patient currently off Zithromax and prednisone
Continue Mucinex, 3% saline nebulization, Acapella, Vest
S/P Bronch 08/12/24
Lot of Secretions- Sent for CX-bronc cultures and AFB pending- yeast
Off BIPAP-wean oxygen as tolerated on nasal cannula now
Speech and swallow evaluation noted. Video swallow noted. No aspiration
# Cardiology evaluation appreciated-no evidence of CHF. HCTZ resumed for lower extremity edema. with hyponatremia hold hctz.
# Chronic anemia iron studies unremarkable
Status post 1 unit of PRBC--HGB stable
# COPD-severe with FEV1 1.6L, 68% predicted, severely reduced DLCO on Breztri, Trelegy Ellipta as OP.
Not on exacerbation currently.
Holding trilogy while on DuoNeb.
# WILFRIDO resolved
# Multiple pulmonary nodules-PET scan negative in the past-stable since 2020. Outpatient pulmonary follow-up
# Rheumatoid arthritis-continue Plaquenil
# Hypertension-continue lisinopril. Hold HCTZ
# Anxiety and depression-continue Lexapro, Vilazodone and as needed lorazepam
# Hyperlipidemia-continue statin
# Chronic steroid use for rheumatoid arthritis
# Underweight with severe protein calorie malnutrition
# History of left breast cancer with history of lumpectomy and radiation 1993
# History of perforated peptic ulcer-add H2 blockers especially with chronic use of steroids
# Ex-smoker
# DVT prophylaxis on Lovenox
# Full code
Discussed with nursing
Anticipated Discharge: Within 24 hours
Subjective/Interval History
-
Date of Service: August 16, 2024
Objective Data
-
Labs:
Laboratory Results
08/16/24
07:32
WBC 10.3
Hgb 9.5 L
Hct 31.2 L
Plt Count 394
Sodium 132 L
Potassium 4.8
Chloride 90 L
Carbon Dioxide 38 H
BUN 17
Creatinine 0.8
Glucose 76
Calcium 9.0
Total Bilirubin 0.4
AST 45 H
ALT 28
Alkaline Phosphatase 92
Vital Signs:
Vital Signs
Temp Pulse Resp BP Pulse Ox
99.0 F 88 16 103/57 100
08/16/24 15:00 08/16/24 15:00 08/16/24 15:00 08/16/24 15:00 08/16/24 15:00
I&O
08/15/24 08/16/24 08/17/24
06:59 06:59 06:59
Intake Total 1150 / 1150
Output Total 500 / 500
Balance 650 / 650
[2024-08-16] MEDS: PLAQUENIL 300 MG PO (18:23)
[2024-08-16 19:00] VITALS: BP 117/65
[2024-08-16] MEDS: LIPITOR 10 MG PO (21:07)
[2024-08-16] MEDS: ATIVAN 0.5 MG PO (21:07)
[2024-08-16 23:00] VITALS: BP 105/63
[2024-08-17 03:00] VITALS: BP 116/65
[2024-08-17] MEDS: MERREM 500 MG IV ×2 (04:54→11:28)
[2024-08-17] MEDS: STERILE WATER FOR INJECTION 10 ML IV ×2 (04:54→11:28)
[2024-08-17 06:00] VITALS: BMI 16.7
--- NOTE | 2024-08-17 06:22 | W.PN.UPDATE ---
Update Note
Progress Note Update
RN reporting 4 large loose bms since midnight. Pt has been on abx for some time now. will check cdiff
[2024-08-17] MEDS: DUONEB 3 ML INH ×2 (07:22→13:46)
[2024-08-17] MEDS: SODIUM CHLORIDE 3% FOR INHALATION 1 VIAL INH (07:22)
[2024-08-17 07:44] VITALS: BP 122/63
[2024-08-17] MEDS: HEPARIN 5000 UNITS SC (08:55)
[2024-08-17] MEDS: LEXAPRO 20 MG PO (08:56)
[2024-08-17] MEDS: VISBIOME 1 CAP PO (08:56)
[2024-08-17] MEDS: PEPCID 20 MG PO (08:56)
[2024-08-17] MEDS: ZESTRIL 10 MG PO (08:56)
[2024-08-17] MEDS: MUCINEX 600 MG PO (08:56)
[2024-08-17] MEDS: LIDOCAINE 4% PATCH 1 PATCH TOPICAL (08:57)
[2024-08-17] MEDS: NON-FORMULARY ITEM 40 MG PO (08:58)
[2024-08-17] MEDS: SENOKOT PO (08:58)
[2024-08-17] MEDS: MIRALAX PO (08:59)
--- NOTE | 2024-08-17 09:19 | W.PN.PUL3 ---
Today's Communication / Plan
-
Reviewed plan of care again today
Awaiting bed at rehab
Discharge planning per team
Assessment
-
Patient is a very pleasant 79-year-old female with known history of severe COPD, bilateral lower lobe mild fibrotic changes with traction bronchiectasis and pulmonary nodules who presented to the hospital with increasing cough and some confusion
over the last 2 weeks. Patient reportedly had an episode of pneumonia last year in January and required home oxygen which she eventually improved and was taken off supplemental oxygen. Her last 6-minute walk test in the clinic was unremarkable
without any desaturation. Over the last 2 weeks he started having increasing cough with occasional wheezing and small amount of phlegm production. Patient also noted to be increasingly confused and was noted to be hypoxic with pulse ox down to
82%. She was brought to the emergency room for further workup. Imaging in emergency room was suggestive of dense left lower lobe pneumonia. Pulmonary consultation was requested for further input.
Acute hypoxic respiratory failure.
Severe Left lower lobe pneumonia.
s/p bronchoscopy 08/12
Significant secretions throughout tracheobronchial tree, left worse than right
Postoperative suspected CO2 retention requiring BIPAP now off,
Acute on chronic SOB
Aspiration syndrome
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
R hip fractures s/p cemented bipolar endoprosthesis 02/23/24 s/p mechanical fall
Multiple lung nodules, measuring 3-5mm
s/p Bronchoscopy results 06/12/20: No endobronchial lesions. BAL was performed in both lower lobes and right upper lobe/AFB neg
COPD, severe
Followed by Dr Morrissey, last seen 2020
PFT - FEV1 was 1.26 L or 59% of predicted and previously was 1.50 L or 74% predicted
Cylindrical bronchiectasis RML and lingula
Fibrosis noted on CT, new/progressed
History of tobacco abuse/[id number] smoking history. Quit around 2009
History of pleural effusion
Interstitial lung disease
Rheumatoid arthritis w/ Immunosuppressed status
History of breast cancer s/p Left lumpectomy and axillary node dissection for stage I left breast carcinoma (1993, radiation/no chemo)
Plan/recommendations
At this time, patient appears to be comfortable, surprised at the relative lack of symptoms given findings on bronchoscopy
Speech and swallow evaluation noted -video swallow performed on 08/13 showing mild oral/pharyngeal dysphagia with no aspiration; defer diet to [place]
Family at bedside confirms that they have suspected she has been aspirating for a while. Unfortunately did not believe this and continued with lack of aspiration precautions according to [id number] at bedside
Pulmonary toilet is rothman--poor baseline airway clearance efforts
Continue with aggressive airway clearance
Vest therapy
Continue 3% saline with prn mucomyst
Continue to hold inhaler regimen, would focus on nebulized regimen
DuoNebs 3 times daily
I reviewed this with patient and family member today
CT chest 08/06/2024: Increased extensive consolidation throughout left lower lobe as well as nodular opacities in the right lower lobe consistent with worsening multifocal pneumonia. There are multiple gas containing foci within the left lower lobe
increased compared to prior. Cavitary pneumonia/lung abscess.
There is a 4.7 X3.1X 3.4cm gas and fluid containing focus within the left lower low suspicion for pulmonary abscess.
CXR from 08/14 shows persistent left lung pneumonia with some improvement in the left lung base, and improved aeration in the right lung as well, possibly due to chest x-ray penetration
Currently on meropenem since 08/07 s/p Augmentin/Zithromax; she received 1 dose of IV vancomycin on 08/01
ID on board, defer antibiotics to them
Cultures from bronchoscopy all show NGTD; cytopathology shows marked acute inflammation and negative for malignancy
Sputum culture from 08/03/2024 grew Rama albicans, likely colonization
Would stop all abx and observe off
Remains on supplemental oxygen; wean down O2 flow rate as tolerated while keeping SpO2 88-95%
History of COPD noted: FEV1 was 1.6 L, 68% of predicted as per pulmonary function testing in April 2024 with severely reduced DLCO. Eosinophil count 0-200
Patient also has baseline bronchiectasis w/ interstitial changes
Dr. Horn reviewed with patient and [id number] at bedside that recovery may be difficult given age, comorbidities, chronic immunosuppression, chronic aspiration
Prior history:
Bilateral lower lobe bronchiectasis with interstitial fibrotic changes. Patient's lower lobe bronchiectasis appears to be related to traction due to lower lobe mild fibrotic changes. I reviewed the previous x-rays and CT scans and fibrosis has not
progressed much. This is probably related to underlying diagnosis of rheumatoid arthritis. She does not have a typical UIP radiological pattern
Multiple pulmonary nodules. Previous PET scan has been negative and over the years nodules have stayed stable suggestive of benign etiology.
Continue follow-up as an outpatient with pulmonary clinic
Patient follows up with Dr. Correa at [facility] and will resume follow-up after discharge
D/c planning per team
Diagnostic Data
CXR 08/15/24- Right PICC tip in the mid third of the superior vena cava. No pneumothorax. No other significant interval change.
08/13/24- Persistent left lung pneumonia, with improved aeration at the left lung base. Subtle air-fluid levels are noted superimposed on the left mid to lower lung zone, consistent with parenchymal cavities, possibly related to necrotizing
pneumonia. Mild thickening along the left major fissure, which could represent inflammatory reaction or fluid.
CT CHEST 08/06/2024: There is increased extensive consolidation throughout the left lower lobe as well as nodular opacities in the right lower lobe consistent with worsening multifocal pneumonia. There are multiple gas containing foci within the
left lower lobe which appears slightly increased from prior and likely represent an element of cavitary pneumonia. Additionally there is a 4.7 x 3.1 cm and a 3.4 x 2.3 cm gas and fluid containing focus within the left lower lobe which are suspicious
for pulmonary abscesses.
CT CHEST 01/2024: 1.). The stability of the multiple bilateral pulmonary nodules dating back to 08/11/2020 suggests that they are benign
2). COPD with worsening predominantly interstitial fibrosis and bronchiectasis at the lung bases
3). Minimal left pleural effusion
ECHO 4/11/25- Normal biventricular size and systolic function without regional wall motion abnormality. No significant valvular disease. No prior study available for comparison.
-----
Total time spent today was 41 minutes for this encounter. Time includes reviewing laboratory test/imaging results, reviewing pertinent medical records, obtaining and reviewing medical history, performing an appropriate exam, ordering medications,
tests and procedures. Time also includes documentation of this encounter, coordinating patient care and communicating with other healthcare professionals. Total time does not include separately billed tests performed on this date of service.
Subjective Data
-
Date of Service:
Date of Service: August 17, 2024
Chief Complaint: Pulmonary Follow Up (Severe pneumonia)
Subjective:
Remains clinically unchanged
Awaiting bed at rehab
Objective Data
Data Reviewed
Vital Signs / I&O / Oxygen:
Vital Signs
Temp Pulse Resp BP Pulse Ox
97.9 F 85 16 122/63 95
08/17/24 07:44 08/17/24 07:44 08/17/24 07:44 08/17/24 07:44 08/17/24 07:44
SaO2 95
Nasal Cannula flow liters per 2
minute
Physical Exam
General: Respiratory Distress (negative), Comfortable, Other (NAD, thin appearing) and Other (Cachectic; appears deconditioned/weak)
HEENT: Normocephalic, Anicteric and Moist Mucous Membranes
Cardiovascular: S1-S2 and Regular Rhythm
Respiratory: Wheeze (negative), Crackles (Bilaterally (L >R)), Rhonchi (Bilaterally (L >R)) and Non-Labored Respirations
GI: Soft, Non Distended, Non Tender and Normal Bowel Sounds
Neurology: Awake, Alert and Tremors (negative)
Skin: Warm, Dry, Cyanosis (negative) and Jaundice (negative)
Labs/Micro/Reports
Lab Data
08/16/24 07:32
08/16/24 07:32
Microbiology
08/17/24 06:33 Feces/Stool C. difficile GDH Antigen & Toxins - Final
Negative for toxigenic C.difficile
08/12/24 08:10 Lung - Left Fungal Culture - Preliminary
Yeast
08/12/24 08:10 Bronch Left Lower Lobe Respiratory Culture - Final
08/12/24 08:10 Bronch Left Lower Lobe Gram Stain - Final
[2024-08-17 10:30] VITALS: BP 113/55; PULSE 98; O2SAT 94
[2024-08-17 11:15] VITALS: BP 109/62
--- NOTE | 2024-08-17 12:35 | CM ---
Addendum entered by Becka Ambriz 08/17/24 13:16:
spoke with Araceli at [facility]
Auth approved Auth #: [id number]
Start 08/17/24 NRD 08/20/24
Call with updates to
Called Erlinda at [facility] & left message information & time of transport
IMM explained & signed. In chart
Called Brandon & let him know he needs to bring patient's inhalers to [facility] - he will do so.
PLAN: [facility] - AUTH APPROVED
Report #: [phone]
Fax #: [phone]
transportation forms on chart, 4 pm set
Original Note:
tt from hospitalist
Spoke with Erlinda from [facility] - bed available today
Erlinda requested patient bring her own inhalers to facility
CM to obtain ins auth
[facility] NPI #: [id number]
Dr. Harmony Valentin NPI #: [id number]
tt OT for updated note
PLAN: [facility], once auth obtained
Report #: [phone]
Fax #: [phone]
transportation forms on chart
--- NOTE | 2024-08-17 12:36 | W.PN.ID1 ---
Date of Service
Date of Service: August 17, 2024
Today's Communication
- Continue with meropenem (d#)
- has picc line
- script provided to case specialist 08/16
Assessment / Plan
Pulmonary Abscess
Dysphagia
Severe COPD
Bronchiectasis
RA on chronic prednisone 5 mg PO qday and plaquneil
Cachexia
- 08/12 bronch cultures: routine, fungal and AFB in progress - smears/gram stain negative, no growth to date
- 08/08 sputum - usual resp samara
- 08/03 sputum - C albicans - normal samara
- loose BMs are not diarrhea, C difficile negative
- Continue with meropenem (d#)
- has picc line
- script provided to case specialist 08/16
- stable for dc from ID perspective
����������������������������������������������������������
Chief Complaint
-: Pneumonia and Other (Pulmonary abscess)
Subjective / Review of Systems
afebrile
bp stable
no complaints
she consistently refers to her picc as a port
Vital Signs / Physical Exam
Vital Signs
Vital Signs
Temp Pulse Resp BP Pulse Ox
98 F 82 14 109/62 99
08/17/24 11:15 08/17/24 11:15 08/17/24 11:15 08/17/24 11:15 08/17/24 11:15
Physical Exam
Constitutional: No Acute Distress and Chronically Ill
Cardiovascular: Regular Rate and S1/S2; Negative Murmur or Rub
Pulmonary: Clear and Symmetric; Negative Wheezes or Rales
Gastrointestinal: Soft, Non Tender, Non Distended and Normal Bowel Sounds
Skin: Warm and Dry; Negative Rash or Jaundice
Lines: PICC
Objective Data
Lab Data
Lab Results
08/16/24 07:32
08/16/24 07:32
ESR 84 mm/hour (0-20) H 08/09/24 06:23
PT 13.8 Sec (11.4-14.6) 08/12/24 06:53
INR 1.01 08/12/24 06:53
Estimated Creat Clear 37 ml/min 08/16/24 07:32
Lactic Acid 0.8 mmol/L (0.7-2.0) 08/01/24 14:18
Total Bilirubin 0.4 mg/dl (0.2-1.3) 08/16/24 07:32
AST 45 U/L (14-36) H 08/16/24 07:32
ALT 28 U/L (0-35) 08/16/24 07:32
Alkaline Phosphatase 92 U/L (38-126) 08/16/24 07:32
C-Reactive Protein 82.10 mg/L (0.0-10.00) H 08/09/24 06:23
Most recent labs reviewed.
Micro Results:
08/17/24 06:33 C. difficile GDH Antigen & Toxins - Final
Feces/Stool Negative for toxigenic C.difficile
08/12/24 08:10 Fungal Culture - Preliminary
Lung - Left Yeast
08/12/24 08:10 Respiratory Culture - Final
Bronch Left Lower Lobe Gram Stain - Final
08/12/24 08:10 Acid Fast Bacilli Smear - Preliminary
Lung - Left Acid Fast Bacilli Culture - Preliminary
08/08/24 17:42 Respiratory Culture - Final
Sputum Usual Respiratory Samara
Gram Stain - Final
08/01/24 14:23 Blood Culture - Final
Blood/Venous No Growth - Final Report
08/01/24 14:18 Blood Culture - Final
Blood/Venous No Growth - Final Report
08/03/24 11:15 Respiratory Culture - Final
Sputum Rama albicans
Gram Stain - Final
08/03/24 18:52 Legionella Urinary Antigen - Final
Urine Negative for Legionella pneumophila Serogroup 1 antigen.
A negative result does not rule out the possiblity of
Legionella infection due to other serogroups or species of
Legionella. Clinical correlation is recommended.
Streptococcus pneumoniae Antigen (M - Final
Negative for Streptococcus pneumoniae antigen.
A negative result does not exclude infection with
Streptococcus pneumoniae. Clinical correlation is
recommended.
08/02/24 09:30 MRSA Screen - Final
Nose No Methicillin Resistant Staphylococcus aureus isolated.
08/02/24 04:28 Nasal Screen MRSA (PCR) - Final
Nose
08/01/24 14:18 Influenza Types A & B (BRI) - Final
Nasal Swab Negative for Influenza A & B, NAAT
Negative results must be combined with clinical observations
and patient history.
Nucleic Acid Amplification test (NAAT)performed on the
[employer] platform.
--- NOTE | 2024-08-17 12:43 | W.PN.HOSP.TC ---
Addendum entered and electronically signed by Eusebio Foley MD 08/17/24 13:42:
D/W Case management Has auth
D/W Pulm
More than 30 minutes spent in discharge including
Final examination of the patient
Summarizing hospital stay
Instructions for continuing care to all relevant caregivers
Preparation of discharge records, prescriptions, and referral forms
Total time spent (in minutes): 38 min
Original Note:
Today's Communication/Plan
-
Discharge when Auth Obtained.
Assessment / Plan
Assessment / Plan
08/01/24 14:23 Blood/Venous Blood Culture - Preliminary
No Growth in 4 days- Final report to follow
08/01/24 14:18 Blood/Venous Blood Culture - Preliminary
No Growth in 4 days- Final report to follow
08/03/24 11:15 Sputum Respiratory Culture - Final
Lee albicans
08/03/24 11:15 Sputum Gram Stain - Final
08/03/24 18:52 Urine Legionella Urinary Antigen - Final
Negative for Legionella pneumophila Serogroup 1 antigen.
A negative result does not rule out the possiblity of
Legionella infection due to other serogroups or species of
Legionella. Clinical correlation is recommended.
08/03/24 18:52 Urine Streptococcus pneumoniae Antigen (M - Final
Negative for Streptococcus pneumoniae antigen.
A negative result does not exclude infection with
Streptococcus pneumoniae. Clinical correlation is
recommended.
08/02/24 09:30 Nose MRSA Screen - Final
No Methicillin Resistant Staphylococcus aureus isolated.
08/02/24 04:28 Nose Nasal Screen MRSA (PCR) - Final
08/01/24 14:18 Nasal Swab Influenza Types A & B (BRI) - Final
Negative for Influenza A & B, NAAT
Negative results must be combined with clinical observations
and patient history.
Nucleic Acid Amplification test (NAAT)performed on the
[employer] platform.
CTA chest 08/01/24:
1. No evidence of pulmonary embolism.
2. Severe left lower lobe pneumonia.
79-year-old female with cough and confusion
Echo 08/06/2024-normal biventricular size and systolic function. No valvular disease
CT chest- 08/07/24- There is increased extensive consolidation throughout the left lower lobe as well as nodular opacities in the right lower lobe consistent with worsening multifocal pneumonia. There are multiple gas containing foci within the left
lower lobe which appears slightly increased from prior and likely represent an element of cavitary pneumonia. Additionally there is a 4.7 x 3.1 cm and a 3.4 x 2.3 cm gas and fluid containing focus within the left lower lobe which are suspicious for
pulmonary abscesses.
CVS: S1-S2 normal
Chest: few rales left
Abdomen: Soft, NT / Bowel sounds present
Extremities: No edema
#Severe left lower lobe pneumonia (with lung abscess) in the setting of severe COPD and bilateral lower lobe bronchiectasis with interstitial fibrotic changes--s/p bronch with cultures showing few resp samara
COVID and influenza negative
Leukocytosis with left shift on admission-improved
Was on 6 L of oxygen then on BiPAP with 10 L of oxygen now on 2 L
Blood cultures negative
Was on Zosyn , changed to Augmentin , Now on Meropenem
Rpt CT with lung abscess- Consulted ID, change AB to Meropenem--4 weeks IV meropenem as per ID, has a PICC line
Sputum CX lee
Patient currently off Zithromax and prednisone
Continue Mucinex, 3% saline nebulization, Acapella, Vest
S/P Bronch 08/12/24
Lot of Secretions- Sent for CX-bronc cultures and AFB pending- yeast
Speech and swallow evaluation noted. Video swallow noted. No aspiration
# Cardiology evaluation appreciated-no evidence of CHF. HCTZ resumed for lower extremity edema. with hyponatremia hold HCTZ.. Will do Lasix 20 mg MOwefr
# Chronic anemia iron studies unremarkable
Status post 1 unit of PRBC--HGB stable
# COPD-severe with FEV1 1.6L, 68% predicted, severely reduced DLCO on Breztri, Trelegy Ellipta as OP.
Not on exacerbation currently.
Holding trilogy while on DuoNeb.
# WILFRIDO resolved
# Multiple pulmonary nodules-PET scan negative in the past-stable since 2020. Outpatient pulmonary follow-up
# Rheumatoid arthritis-continue Plaquenil
# Hypertension-continue lisinopril. Hold HCTZ
# Anxiety and depression-continue Lexapro, Vilazodone and as needed lorazepam
# Hyperlipidemia-continue statin
# Chronic steroid use for rheumatoid arthritis
# Underweight with severe protein calorie malnutrition
# History of left breast cancer with history of lumpectomy and radiation 1993
# History of perforated peptic ulcer-add H2 blockers especially with chronic use of steroids
# Ex-smoker
# DVT prophylaxis on Lovenox
# Full code
Discussed with nursing
D/W Case management
Radha osullivan has a bed they requested that the patient's family bring inhalers. Communicated with the patient.
Today is 12/23 of
Last day Sep 06 2024
Anticipated Discharge: Today
Subjective/Interval History
-
Date of Service: August 17, 2024
Objective Data
-
Vital Signs:
Vital Signs
Temp Pulse Resp BP Pulse Ox
98 F 82 14 109/62 99
08/17/24 11:15 08/17/24 11:15 08/17/24 11:15 08/17/24 11:15 08/17/24 11:15
[2024-08-17] MEDS: FLORASTOR 250 MG PO (13:16)
[2024-08-17 13:29] VITALS: BP 132/57; PULSE 82; O2SAT 99
--- NOTE | 2024-08-17 13:43 | W.DS.TRANS ---
Addendum entered and electronically signed by Eusebio Foley MD 08/17/24 15:57:
Dictation- [id number]
Original Note:
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
-
Discharge Instructions:
Discharge Diagnosis/Procedures Severe left lower lobe pneumonia with lung
abscess
Chronic anemia
COPD
Acute kidney injury
Hyponatremia
Multiple pulmonary nodules
Rheumatoid arthritis
Hypertension
Hyperlipidemia
Severe protein calorie malnutrition
History of breast cancer
History of peptic ulcer disease
Diet As tolerated
Activity As tolerated
Driving Restrictions No driving
Blood Work CBC BMP 5 days and weekly after lab
Others Tests CT scan of the chest 4 weeks
Other Services PT,OT
Instructions:
Stand-Alone Forms:
Changes to Home Medications: Yes
Discharge Medications:
DC Medications w/original date entered in SendRR
hydroxychloroquine 200 mg tablet 300 mg PO QPM rheumatoid arthritis 04/27/17
Lactobac no.2-Bifidobac no.1-S. thermo 112.5 billion cell capsule (Visbiome) 1 cap PO DAILY probiotic 02/22/24
calcium polycarbophil 625 mg tablet (Fiber (calcium polycarbophil)) 625 mg PO DAILY Supplement 02/22/24
prednisone 5 mg tablet 5 mg PO DAILYPRN PRN joint pain 02/22/24
simvastatin 20 mg tablet 20 mg PO HS cholesterol 02/22/24
therapeutic multivitamin 1 tab PO DAILY Supplement 02/22/24
vilazodone 40 mg tablet 40 mg PO DAILY Mental Health/Anxiety 02/22/24
budesonide 160 mcg-glycopyr 9 mcg-formot 4.8 mcg/actuation HFA inhaler (Breztri Aerosphere) 2 inh inhalation R BID Lung/Breathing Issues 07/23/24
albuterol sulfate 2.5 mg/3 mL (0.083 %) solution for nebulization 2.5 mg inhalation R QID Lung/Breathing Issues 08/01/24
albuterol sulfate 90 mcg/actuation aerosol inhaler 2 puff inhalation R Q4HPRN PRN sob 08/01/24
fluticasone fur. 100 mcg-umeclid 62.5 mcg-vilant 25 mcg inhalat.powder (Trelegy Ellipta) 1 inh inhalation R DAILY Lung/Breathing Issues 08/01/24
inhalational spacing device ([facility] spacer) 08/01/24
Saccharomyces boulardii 250 mg capsule 250 mg PO BID PRN constipation #30 caps 08/17/24
acetaminophen 325 mg tablet 650 mg (2 x 325 mg) PO Q6HPRN PRN mild pain/ fever>100.5F #0 tabs 08/17/24
escitalopram oxalate 20 mg tablet 20 mg PO DAILY Mental Health/Anxiety #0 tabs 08/17/24
famotidine 20 mg tablet 20 mg PO DAILY Gastrointestinal issue #0 tabs 08/17/24
furosemide 20 mg tablet (Lasix) 20 mg PO Q OTHER DAY Fluid retention/Swelling #30 tabs 08/17/24
guaifenesin 600 mg tablet, extended release 12 hr 600 mg PO Q12 Lung/breathing issues #0 tabs 08/17/24
lidocaine 4 % topical patch 1 patch topical DAILY Pain #30 ea 08/17/24
lisinopril 10 mg tablet 10 mg PO DAILY Blood pressure #0 tabs 08/17/24
lorazepam 0.5 mg tablet 0.5 mg PO Q4HPRN PRN anxiety #8 tabs 08/17/24
meropenem 500 mg intravenous solution 500 mg IV Q8H Infection #0 ea 08/17/24
Home Medication Changes
new
lasix, meropenam, famotidine
Stopped HCTZ
Pending Results: Yes
Additional Pending Results:
final Bronch Cx
[2024-08-17 15:07] VITALS: BP 115/55
== END 2024-08-17 16:01 | DRG 871 ==
LOC: 3 WEST ACU 17:50
PROVIDERS: Internal Medicine; Internal Medicine Critical Care Medicine; Physician Assistant; Radiology Diagnostic Radiology; ADMITTING PHYSICIAN Internal Medicine; ATTENDING PHYSICIAN Hospitalist; CONSULT PHYSICIAN Internal Medicine Cardiovascular Disease; CONSULT PHYSICIAN Student in an Organized Health Care Education/Training Program; EMERGENCY PHYSICIAN Emergency Medicine; OTHER PHYSICIAN Internal Medicine
PROC: 5A09357 Assistance with Respiratory Ventilation, Less than 24 Consecutive Hours, Continuous Positive Airway Pressure (ICD-10-PCS; 2024-08-02)
PROC: 30233N1 Transfusion of Nonautologous Red Blood Cells into Peripheral Vein, Percutaneous Approach (ICD-10-PCS; 2024-08-04)
PROC: 0BC38ZZ Extirpation of Matter from Right Main Bronchus, Via Natural or Artificial Opening Endoscopic (ICD-10-PCS; 2024-08-12)
PROC: 0BC18ZZ Extirpation of Matter from Trachea, Via Natural or Artificial Opening Endoscopic (ICD-10-PCS; 2024-08-12)
PROC: 0BC78ZZ Extirpation of Matter from Left Main Bronchus, Via Natural or Artificial Opening Endoscopic (ICD-10-PCS; 2024-08-12)
PROC: 0BCB8ZZ Extirpation of Matter from Left Lower Lobe Bronchus, Via Natural or Artificial Opening Endoscopic (ICD-10-PCS; 2024-08-12)
PROC: 0B9J8ZX Drainage of Left Lower Lung Lobe, Via Natural or Artificial Opening Endoscopic, Diagnostic (ICD-10-PCS; 2024-08-12)
PROC: 02HV33Z Insertion of Infusion Device into Superior Vena Cava, Percutaneous Approach (ICD-10-PCS; 2024-08-15)
DX: A41.89 Other specified sepsis (principal); E43 Unspecified severe protein-calorie malnutrition; G93.41 Metabolic encephalopathy; J96.01 Acute respiratory failure with hypoxia; J85.1 Abscess of lung with pneumonia; J18.8 Other pneumonia, unspecified organism; J69.0 Pneumonitis due to inhalation of food and vomit; J44.0 Chronic obstructive pulmonary disease with (acute) lower respiratory infection; Z68.1 Body mass index [BMI] 19.9 or less, adult; I5A Non-ischemic myocardial injury (non-traumatic); J47.0 Bronchiectasis with acute lower respiratory infection; J90 Pleural effusion, not elsewhere classified; N17.9 Acute kidney failure, unspecified; D84.9 Immunodeficiency, unspecified; R64 Cachexia; J98.11 Atelectasis; E87.1 Hypo-osmolality and hyponatremia; E78.00 Pure hypercholesterolemia, unspecified; M06.9 Rheumatoid arthritis, unspecified; R91.8 Other nonspecific abnormal finding of lung field; F41.9 Anxiety disorder, unspecified; J84.10 Pulmonary fibrosis, unspecified; F32.A Depression, unspecified; R13.10 Dysphagia, unspecified; F10.21 Alcohol dependence, in remission; I45.10 Unspecified right bundle-branch block; R19.7 Diarrhea, unspecified; D64.9 Anemia, unspecified; I10 Essential (primary) hypertension; Z87.891 Personal history of nicotine dependence; Z85.3 Personal history of malignant neoplasm of breast; Z88.1 Allergy status to other antibiotic agents; Z79.51 Long term (current) use of inhaled steroids; Z79.52 Long term (current) use of systemic steroids; Z11.52 Encounter for screening for COVID-19; Z87.11 Personal history of peptic ulcer disease; Z87.01 Personal history of pneumonia (recurrent)
CPT/HCPCS: 88305; 31624; 71045; 71046; 71250; 71275; 74230; 80048; 80053; 82728; 82962; 83540; 83550; 83605; 83735; 83880; 84145; 84484; 85025; 85027; 85045; 85610; 85652; 86140; 86850; 86900; 86901; 86920; 87015; 87040; 87070; 87102; 87106; 87116; 87205; 87324; 87449; 87502; 87641; 87811; 87899; 88112; 92526; 92610; 92611; 93005; 93306; 94640; 94660; 94669; 96365; 96375; 97116; 97162; 97166; 97530; 97535; 99285; P9016; Q9967

== ENCOUNTER → 2024-08-20 11:00 | Outpatient (REF) | payer OTHER, SELFPAY ==
[2024-08-20 11:33] LABS: % Basophils 1.5 % (0-2); % Eosinophils 1.1 % (0-6); % Immature Granulocytes 1.6 % (0-0.5); % Lymphocytes 14.2 % (20.5-51.1); % Monocytes 8.8 % (1.7-9.3); % Neutrophils 72.8 % (42.2-75.2); Absolute Basophils 0.1 10^3/uL (0-0.2); Absolute Eosinophils 0.1 10^3/uL (0-0.7); Absolute Immature Granulocytes 0.2 10^3/uL (0-0.05); Absolute Lymphocytes 1.3 10^3/uL (1.2-3.4); Absolute Monocytes 0.8 10^3/uL (0.1-0.6); Absolute Neutrophils 6.8 10^3/uL (1.4-6.5); Hemoglobin 9.4 g/dL (12.0-16.0); Mean Corp Hgb Conc. 30.3 g/dL (33.0-37.0); Mean Corpuscular Hgb 29.1 pg (27.0-31.0); Mean Platelet Volume 9.1 fL (7.4-10.4); Nucleated Red Blood Cells % 0 %; Platelet Count 351 10^3/uL (130-400); Red Blood Cell Count 3.23 10^6/uL (4.20-5.40); Red Cell Dist. Width 20.6 % (11.5-14.5); White Blood Cell Count 9.4 10^3/uL (4.8-10.8)
[2024-08-20 11:42] LABS: Blood Urea Nitrogen 22 mg/dl (7-17); Calcium 8.9 mg/dl (8.4-10.2); Carbon Dioxide 31 mmol/L (22-30); Chloride 100 mmol/L (98-107); Glucose 71 mg/dl (70-99); Potassium 4.9 mmol/L (3.5-5.1); Sodium 138 mmol/L (135-145); eGFR > 60.00
== END ==
LOC: OLABP 11:00
PROVIDERS: ATTENDING PHYSICIAN Family Medicine
DX: J85.1 Abscess of lung with pneumonia (principal); T17.900A Unspecified foreign body in respiratory tract, part unspecified causing asphyxiation, initial encounter; Z68.1 Body mass index [BMI] 19.9 or less, adult; R64 Cachexia; E87.1 Hypo-osmolality and hyponatremia; J84.115 Respiratory bronchiolitis interstitial lung disease; D84.9 Immunodeficiency, unspecified; G93.41 Metabolic encephalopathy; J47.9 Bronchiectasis, uncomplicated; I10 Essential (primary) hypertension; E43 Unspecified severe protein-calorie malnutrition; J96.01 Acute respiratory failure with hypoxia; A41.9 Sepsis, unspecified organism; F41.9 Anxiety disorder, unspecified; A41.81 Sepsis due to Enterococcus; E78.5 Hyperlipidemia, unspecified; J44.9 Chronic obstructive pulmonary disease, unspecified
CPT/HCPCS: 36415; 80048; 85025

== ENCOUNTER → 2024-08-23 10:16 | Outpatient (REF) | payer OTHER, SELFPAY ==
[2024-08-23 10:59] LABS: % Basophils 0.8 % (0-2); % Eosinophils 2.2 % (0-6); % Immature Granulocytes 0.8 % (0-0.5); % Lymphocytes 8.9 % (20.5-51.1); % Monocytes 7.4 % (1.7-9.3); % Neutrophils 79.9 % (42.2-75.2); Absolute Basophils 0.1 10^3/uL (0-0.2); Absolute Eosinophils 0.2 10^3/uL (0-0.7); Absolute Immature Granulocytes 0.1 10^3/uL (0-0.05); Absolute Lymphocytes 0.9 10^3/uL (1.2-3.4); Absolute Monocytes 0.8 10^3/uL (0.1-0.6); Absolute Neutrophils 8.1 10^3/uL (1.4-6.5); Hematocrit 30.6 % (37.0-47.0); Mean Corp Hgb Conc. 29.4 g/dL (33.0-37.0); Mean Corpuscular Hgb 28.4 pg (27.0-31.0); Mean Corpuscular Volume 96.5 fL (81.0-99.0); Mean Platelet Volume 8.7 fL (7.4-10.4); Nucleated Red Blood Cells % 0 %; Platelet Count 327 10^3/uL (130-400); Red Blood Cell Count 3.17 10^6/uL (4.20-5.40); Red Cell Dist. Width 20.4 % (11.5-14.5); White Blood Cell Count 10.1 10^3/uL (4.8-10.8)
[2024-08-23 11:45] LABS: Erythrocyte Sed Rate 97 mm/hour (0-20)
[2024-08-23 11:55] LABS: ALT (SGPT) 33 U/L (0-35); AST (SGOT) 51 U/L (14-36); Alkaline Phosphatase 99 U/L (38-126); Blood Urea Nitrogen 20 mg/dl (7-17); Calcium 8.8 mg/dl (8.4-10.2); Carbon Dioxide 29 mmol/L (22-30); Chloride 102 mmol/L (98-107); Glucose 71 mg/dl (70-99); Potassium 4.4 mmol/L (3.5-5.1); Sodium 138 mmol/L (135-145); Total Bilirubin 0.5 mg/dl (0.2-1.3); Total Protein 6.4 g/dl (6.3-8.2); eGFR > 60.00
== END ==
LOC: OLABP 10:16
PROVIDERS: ATTENDING PHYSICIAN Family Medicine
DX: B37.1 Pulmonary candidiasis (principal); Z68.1 Body mass index [BMI] 19.9 or less, adult; T17.900S Unspecified foreign body in respiratory tract, part unspecified causing asphyxiation, sequela; R64 Cachexia; E87.1 Hypo-osmolality and hyponatremia; J84.115 Respiratory bronchiolitis interstitial lung disease; D84.9 Immunodeficiency, unspecified; G93.41 Metabolic encephalopathy; J47.9 Bronchiectasis, uncomplicated; I10 Essential (primary) hypertension; E43 Unspecified severe protein-calorie malnutrition; J96.01 Acute respiratory failure with hypoxia; A41.9 Sepsis, unspecified organism; F41.9 Anxiety disorder, unspecified; F41.8 Other specified anxiety disorders; E78.5 Hyperlipidemia, unspecified; J44.9 Chronic obstructive pulmonary disease, unspecified; M06.9 Rheumatoid arthritis, unspecified
CPT/HCPCS: 36415; 80053; 85025; 85652; 86140

== ENCOUNTER → 2024-08-27 11:43 | Outpatient (REF) | payer OTHER, SELFPAY ==
[2024-08-27 12:10] LABS: % Basophils 1.2 % (0-2); % Eosinophils 1.3 % (0-6); % Immature Granulocytes 0.5 % (0-0.5); % Lymphocytes 13.6 % (20.5-51.1); % Monocytes 8.1 % (1.7-9.3); % Neutrophils 75.3 % (42.2-75.2); Absolute Basophils 0.1 10^3/uL (0-0.2); Absolute Eosinophils 0.1 10^3/uL (0-0.7); Absolute Immature Granulocytes 0.1 10^3/uL (0-0.05); Absolute Lymphocytes 1.3 10^3/uL (1.2-3.4); Absolute Monocytes 0.8 10^3/uL (0.1-0.6); Absolute Neutrophils 7.2 10^3/uL (1.4-6.5); Hematocrit 29.9 % (37.0-47.0); Hemoglobin 9.3 g/dL (12.0-16.0); Mean Corp Hgb Conc. 31.1 g/dL (33.0-37.0); Mean Corpuscular Hgb 29.2 pg (27.0-31.0); Mean Corpuscular Volume 93.7 fL (81.0-99.0); Mean Platelet Volume 9.1 fL (7.4-10.4); Nucleated Red Blood Cells % 0 %; Platelet Count 355 10^3/uL (130-400); Red Blood Cell Count 3.19 10^6/uL (4.20-5.40); White Blood Cell Count 9.6 10^3/uL (4.8-10.8)
[2024-08-27 12:53] LABS: Blood Urea Nitrogen 20 mg/dl (7-17); Calcium 8.9 mg/dl (8.4-10.2); Carbon Dioxide 33 mmol/L (22-30); Chloride 97 mmol/L (98-107); Glucose 67 mg/dl (70-99); Potassium 4.7 mmol/L (3.5-5.1); Sodium 137 mmol/L (135-145); eGFR > 60.00
== END ==
LOC: OLABP 11:43
PROVIDERS: ATTENDING PHYSICIAN Family Medicine
DX: B37.1 Pulmonary candidiasis (principal); Z68.1 Body mass index [BMI] 19.9 or less, adult; J85.1 Abscess of lung with pneumonia; J98.11 Atelectasis; R64 Cachexia; E87.1 Hypo-osmolality and hyponatremia; J84.115 Respiratory bronchiolitis interstitial lung disease; D84.9 Immunodeficiency, unspecified; G93.41 Metabolic encephalopathy; J47.9 Bronchiectasis, uncomplicated; I10 Essential (primary) hypertension; E43 Unspecified severe protein-calorie malnutrition; J96.01 Acute respiratory failure with hypoxia; A41.9 Sepsis, unspecified organism; F41.9 Anxiety disorder, unspecified; F41.8 Other specified anxiety disorders; M06.9 Rheumatoid arthritis, unspecified; N18.32 Chronic kidney disease, stage 3b; E78.5 Hyperlipidemia, unspecified; J44.9 Chronic obstructive pulmonary disease, unspecified
CPT/HCPCS: 36415; 80048; 85025

== ENCOUNTER → 2024-08-30 08:47 | Outpatient (REF) | payer OTHER, SELFPAY ==
[2024-08-30 13:23] LABS: ALT (SGPT) 27 U/L (0-35); AST (SGOT) 43 U/L (14-36); Alkaline Phosphatase 106 U/L (38-126); Blood Urea Nitrogen 25 mg/dl (7-17); Carbon Dioxide 31 mmol/L (22-30); Chloride 98 mmol/L (98-107); Glucose 78 mg/dl (70-99); Potassium 4.8 mmol/L (3.5-5.1); Sodium 136 mmol/L (135-145); Total Bilirubin 0.4 mg/dl (0.2-1.3); Total Protein 6.4 g/dl (6.3-8.2); eGFR > 60.00
[2024-08-30 13:36] LABS: % Basophils 1.1 % (0-2); % Immature Granulocytes 0.7 % (0-0.5); % Lymphocytes 10.1 % (20.5-51.1); % Neutrophils 76.1 % (42.2-75.2); Absolute Basophils 0.1 10^3/uL (0-0.2); Absolute Eosinophils 0.5 10^3/uL (0-0.7); Absolute Immature Granulocytes 0.1 10^3/uL (0-0.05); Absolute Lymphocytes 1.2 10^3/uL (1.2-3.4); Absolute Monocytes 0.9 10^3/uL (0.1-0.6); Absolute Neutrophils 8.7 10^3/uL (1.4-6.5); Hematocrit 30.4 % (37.0-47.0); Hemoglobin 9.3 g/dL (12.0-16.0); Mean Corp Hgb Conc. 30.6 g/dL (33.0-37.0); Mean Corpuscular Hgb 29.2 pg (27.0-31.0); Mean Corpuscular Volume 95.6 fL (81.0-99.0); Mean Platelet Volume 8.9 fL (7.4-10.4); Nucleated Red Blood Cells % 0 %; Platelet Count 376 10^3/uL (130-400); Red Blood Cell Count 3.18 10^6/uL (4.20-5.40); Red Cell Dist. Width 19.9 % (11.5-14.5); White Blood Cell Count 11.4 10^3/uL (4.8-10.8)
== END ==
LOC: OLABP 08:47
PROVIDERS: ATTENDING PHYSICIAN Family Medicine
DX: T17.900A Unspecified foreign body in respiratory tract, part unspecified causing asphyxiation, initial encounter (principal); Z68.1 Body mass index [BMI] 19.9 or less, adult; B37.1 Pulmonary candidiasis; N18.32 Chronic kidney disease, stage 3b; R64 Cachexia; E87.1 Hypo-osmolality and hyponatremia; J84.115 Respiratory bronchiolitis interstitial lung disease; D84.9 Immunodeficiency, unspecified; G93.41 Metabolic encephalopathy; J47.9 Bronchiectasis, uncomplicated; I10 Essential (primary) hypertension; E43 Unspecified severe protein-calorie malnutrition; J96.01 Acute respiratory failure with hypoxia; A41.9 Sepsis, unspecified organism; F41.9 Anxiety disorder, unspecified; A41.89 Other specified sepsis; E78.5 Hyperlipidemia, unspecified; J44.9 Chronic obstructive pulmonary disease, unspecified
CPT/HCPCS: 80053; 85025; 86140

== ENCOUNTER → 2024-09-01 10:30 | Outpatient (REF) | payer OTHER, SELFPAY ==
[2024-09-01 11:01] LABS: % Basophils 0.9 % (0-2); % Eosinophils 2.4 % (0-6); % Immature Granulocytes 0.4 % (0-0.5); % Lymphocytes 8.1 % (20.5-51.1); % Monocytes 7.4 % (1.7-9.3); % Neutrophils 80.8 % (42.2-75.2); Absolute Basophils 0.1 10^3/uL (0-0.2); Absolute Eosinophils 0.3 10^3/uL (0-0.7); Absolute Immature Granulocytes 0.1 10^3/uL (0-0.05); Absolute Lymphocytes 0.9 10^3/uL (1.2-3.4); Absolute Monocytes 0.9 10^3/uL (0.1-0.6); Absolute Neutrophils 9.4 10^3/uL (1.4-6.5); Hemoglobin 8.3 g/dL (12.0-16.0); Mean Corp Hgb Conc. 30.7 g/dL (33.0-37.0); Mean Corpuscular Hgb 29.1 pg (27.0-31.0); Mean Corpuscular Volume 94.7 fL (81.0-99.0); Mean Platelet Volume 8.8 fL (7.4-10.4); Nucleated Red Blood Cells % 0 %; Platelet Count 352 10^3/uL (130-400); Red Blood Cell Count 2.85 10^6/uL (4.20-5.40); White Blood Cell Count 11.7 10^3/uL (4.8-10.8)
[2024-09-01 11:55] LABS: ALT (SGPT) 25 U/L (0-35); AST (SGOT) 42 U/L (14-36); Albumin 3.1 g/dl (3.5-5.0); Alkaline Phosphatase 100 U/L (38-126); Blood Urea Nitrogen 25 mg/dl (7-17); Calcium 9.1 mg/dl (8.4-10.2); Carbon Dioxide 33 mmol/L (22-30); Chloride 98 mmol/L (98-107); Glucose 124 mg/dl (70-99); Potassium 4.3 mmol/L (3.5-5.1); Sodium 138 mmol/L (135-145); Total Bilirubin 0.5 mg/dl (0.2-1.3); Total Protein 6.6 g/dl (6.3-8.2); eGFR > 60.00
== END ==
LOC: OLABP 10:30
PROVIDERS: ATTENDING PHYSICIAN Family Medicine
DX: B37.1 Pulmonary candidiasis (principal); T17.900A Unspecified foreign body in respiratory tract, part unspecified causing asphyxiation, initial encounter; R64 Cachexia; E87.1 Hypo-osmolality and hyponatremia; J84.115 Respiratory bronchiolitis interstitial lung disease; D84.9 Immunodeficiency, unspecified; G93.41 Metabolic encephalopathy; I10 Essential (primary) hypertension; E43 Unspecified severe protein-calorie malnutrition; J96.01 Acute respiratory failure with hypoxia; A41.9 Sepsis, unspecified organism; F41.9 Anxiety disorder, unspecified; N18.32 Chronic kidney disease, stage 3b; E78.5 Hyperlipidemia, unspecified; M06.9 Rheumatoid arthritis, unspecified
CPT/HCPCS: 36415; 80053; 85025

== ENCOUNTER → 2024-09-02 11:10 | Outpatient (REF) | payer OTHER, SELFPAY ==
[2024-09-02 11:33] LABS: % Basophils 0.9 % (0-2); % Eosinophils 3.1 % (0-6); % Immature Granulocytes 0.7 % (0-0.5); % Lymphocytes 10.7 % (20.5-51.1); % Monocytes 9.7 % (1.7-9.3); % Neutrophils 74.9 % (42.2-75.2); Absolute Basophils 0.1 10^3/uL (0-0.2); Absolute Eosinophils 0.3 10^3/uL (0-0.7); Absolute Immature Granulocytes 0.1 10^3/uL (0-0.05); Absolute Lymphocytes 1.1 10^3/uL (1.2-3.4); Absolute Neutrophils 7.7 10^3/uL (1.4-6.5); Hematocrit 29.3 % (37.0-47.0); Hemoglobin 8.9 g/dL (12.0-16.0); Mean Corp Hgb Conc. 30.4 g/dL (33.0-37.0); Mean Corpuscular Hgb 28.6 pg (27.0-31.0); Mean Corpuscular Volume 94.2 fL (81.0-99.0); Mean Platelet Volume 8.9 fL (7.4-10.4); Nucleated Red Blood Cells % 0 %; Platelet Count 341 10^3/uL (130-400); Red Blood Cell Count 3.11 10^6/uL (4.20-5.40); White Blood Cell Count 10.3 10^3/uL (4.8-10.8)
[2024-09-02 11:53] LABS: Blood Urea Nitrogen 23 mg/dl (7-17); Carbon Dioxide 33 mmol/L (22-30); Chloride 98 mmol/L (98-107); Glucose 73 mg/dl (70-99); Potassium 4.5 mmol/L (3.5-5.1); Sodium 138 mmol/L (135-145); eGFR > 60.00
== END ==
LOC: OLABP 11:10
PROVIDERS: ATTENDING PHYSICIAN Family Medicine
DX: J85.1 Abscess of lung with pneumonia (principal); T17.900A Unspecified foreign body in respiratory tract, part unspecified causing asphyxiation, initial encounter; Z68.1 Body mass index [BMI] 19.9 or less, adult; J98.11 Atelectasis; R64 Cachexia; E87.1 Hypo-osmolality and hyponatremia; J84.115 Respiratory bronchiolitis interstitial lung disease; D84.9 Immunodeficiency, unspecified; G93.41 Metabolic encephalopathy; J47.9 Bronchiectasis, uncomplicated; I10 Essential (primary) hypertension; E43 Unspecified severe protein-calorie malnutrition; J96.01 Acute respiratory failure with hypoxia; A41.9 Sepsis, unspecified organism; F41.9 Anxiety disorder, unspecified; E78.5 Hyperlipidemia, unspecified; J44.9 Chronic obstructive pulmonary disease, unspecified
CPT/HCPCS: 36415; 80048; 85025; 86140

== ENCOUNTER → 2024-09-03 13:18 | Outpatient (REF) | payer OTHER, SELFPAY ==
[2024-09-03 14:16] LABS: % Basophils 1.1 % (0-2); % Eosinophils 4.9 % (0-6); % Immature Granulocytes 0.8 % (0-0.5); % Lymphocytes 12.1 % (20.5-51.1); % Monocytes 8.5 % (1.7-9.3); % Neutrophils 72.6 % (42.2-75.2); Absolute Basophils 0.1 10^3/uL (0-0.2); Absolute Eosinophils 0.5 10^3/uL (0-0.7); Absolute Immature Granulocytes 0.1 10^3/uL (0-0.05); Absolute Lymphocytes 1.1 10^3/uL (1.2-3.4); Absolute Monocytes 0.8 10^3/uL (0.1-0.6); Absolute Neutrophils 6.7 10^3/uL (1.4-6.5); Hemoglobin 7.9 g/dL (12.0-16.0); Mean Corp Hgb Conc. 30.4 g/dL (33.0-37.0); Mean Corpuscular Hgb 29.2 pg (27.0-31.0); Mean Corpuscular Volume 95.9 fL (81.0-99.0); Nucleated Red Blood Cells % 0 %; Platelet Count 361 10^3/uL (130-400); Red Blood Cell Count 2.71 10^6/uL (4.20-5.40); Red Cell Dist. Width 19.9 % (11.5-14.5); White Blood Cell Count 9.2 10^3/uL (4.8-10.8)
[2024-09-03 16:02] LABS: Blood Urea Nitrogen 22 mg/dl (7-17); Calcium 8.8 mg/dl (8.4-10.2); Carbon Dioxide 32 mmol/L (22-30); Chloride 98 mmol/L (98-107); Glucose 78 mg/dl (70-99); Potassium 4.7 mmol/L (3.5-5.1); Sodium 136 mmol/L (135-145); eGFR > 60.00
== END ==
LOC: OLABP 13:18
PROVIDERS: ATTENDING PHYSICIAN Family Medicine
DX: B37.1 Pulmonary candidiasis (principal); R64 Cachexia; E87.1 Hypo-osmolality and hyponatremia; J84.9 Interstitial pulmonary disease, unspecified; G93.41 Metabolic encephalopathy; J47.9 Bronchiectasis, uncomplicated; I10 Essential (primary) hypertension
CPT/HCPCS: 36415; 80048; 85025

== ENCOUNTER → 2024-09-06 11:27 | Outpatient (REF) | payer OTHER, SELFPAY ==
[2024-09-06 11:57] LABS: % Basophils 1.1 % (0-2); % Eosinophils 3.5 % (0-6); % Immature Granulocytes 0.6 % (0-0.5); % Lymphocytes 10.8 % (20.5-51.1); % Monocytes 8.5 % (1.7-9.3); % Neutrophils 75.5 % (42.2-75.2); Absolute Basophils 0.1 10^3/uL (0-0.2); Absolute Eosinophils 0.4 10^3/uL (0-0.7); Absolute Immature Granulocytes 0.1 10^3/uL (0-0.05); Absolute Lymphocytes 1.2 10^3/uL (1.2-3.4); Absolute Neutrophils 8.5 10^3/uL (1.4-6.5); Hematocrit 27.8 % (37.0-47.0); Hemoglobin 8.5 g/dL (12.0-16.0); Mean Corp Hgb Conc. 30.6 g/dL (33.0-37.0); Mean Corpuscular Hgb 29.2 pg (27.0-31.0); Mean Corpuscular Volume 95.5 fL (81.0-99.0); Mean Platelet Volume 8.8 fL (7.4-10.4); Nucleated Red Blood Cells % 0 %; Platelet Count 433 10^3/uL (130-400); Red Blood Cell Count 2.91 10^6/uL (4.20-5.40); Red Cell Dist. Width 19.9 % (11.5-14.5); White Blood Cell Count 11.2 10^3/uL (4.8-10.8)
[2024-09-06 12:17] LABS: ALT (SGPT) 21 U/L (0-35); AST (SGOT) 38 U/L (14-36); Albumin 3.1 g/dl (3.5-5.0); Alkaline Phosphatase 109 U/L (38-126); Blood Urea Nitrogen 24 mg/dl (7-17); Calcium 9.3 mg/dl (8.4-10.2); Carbon Dioxide 33 mmol/L (22-30); Chloride 96 mmol/L (98-107); Glucose 82 mg/dl (70-99); Potassium 4.8 mmol/L (3.5-5.1); Sodium 137 mmol/L (135-145); Total Bilirubin 0.5 mg/dl (0.2-1.3); Total Protein 6.9 g/dl (6.3-8.2); eGFR 57.66
[2024-09-06 12:26] LABS: Erythrocyte Sed Rate 92 mm/hour (0-20)
== END ==
LOC: OLABP 11:27
PROVIDERS: ATTENDING PHYSICIAN Family Medicine
DX: R64 Cachexia (principal); Z68.1 Body mass index [BMI] 19.9 or less, adult; E87.1 Hypo-osmolality and hyponatremia; J84.115 Respiratory bronchiolitis interstitial lung disease; D84.9 Immunodeficiency, unspecified; G93.41 Metabolic encephalopathy; B37.1 Pulmonary candidiasis; J47.9 Bronchiectasis, uncomplicated; I10 Essential (primary) hypertension; E43 Unspecified severe protein-calorie malnutrition; J96.01 Acute respiratory failure with hypoxia; A41.9 Sepsis, unspecified organism; F41.9 Anxiety disorder, unspecified; F41.8 Other specified anxiety disorders; E78.5 Hyperlipidemia, unspecified; M06.9 Rheumatoid arthritis, unspecified; N18.32 Chronic kidney disease, stage 3b
CPT/HCPCS: 36415; 80053; 85025; 85652; 86140

== ENCOUNTER → 2024-09-27 11:19 | Outpatient (REF) | payer OTHER, SELFPAY | LOC: RAD 11:19 | PROVIDERS: ATTENDING PHYSICIAN Student in an Organized Health Care Education/Training Program; FAMILY PHYSICIAN Physician Assistant | DX: J85.1 Abscess of lung with pneumonia (principal) | CPT/HCPCS: 71270; Q9967 ==

== ENCOUNTER → 2024-09-28 11:19 | Outpatient (REF) | payer OTHER, SELFPAY ==
[2024-09-28 11:57] LABS: % Basophils 0.5 % (0-2); % Eosinophils 0.1 % (0-6); % Immature Granulocytes 0.7 % (0-0.5); % Lymphocytes 7.6 % (20.5-51.1); % Monocytes 5.8 % (1.7-9.3); % Neutrophils 85.3 % (42.2-75.2); Absolute Basophils 0.1 10^3/uL (0-0.2); Absolute Immature Granulocytes 0.1 10^3/uL (0-0.05); Absolute Lymphocytes 1.2 10^3/uL (1.2-3.4); Absolute Monocytes 0.9 10^3/uL (0.1-0.6); Absolute Neutrophils 13.2 10^3/uL (1.4-6.5); Hematocrit 30.3 % (37.0-47.0); Hemoglobin 9.6 g/dL (12.0-16.0); Mean Corp Hgb Conc. 31.7 g/dL (33.0-37.0); Mean Corpuscular Hgb 30.3 pg (27.0-31.0); Mean Corpuscular Volume 95.6 fL (81.0-99.0); Mean Platelet Volume 8.1 fL (7.4-10.4); Nucleated Red Blood Cells % 0 %; Platelet Count 388 10^3/uL (130-400); Red Blood Cell Count 3.17 10^6/uL (4.20-5.40); Red Cell Dist. Width 21.2 % (11.5-14.5); White Blood Cell Count 15.4 10^3/uL (4.8-10.8)
[2024-09-28 12:02] LABS: Erythrocyte Sed Rate 85 mm/hour (0-20)
[2024-09-28 12:47] LABS: C-Reactive Protein < 5.00 mg/L (0.0-10.00)
[2024-09-28 13:25] LABS: Blood Urea Nitrogen 48 mg/dl (7-17); Calcium 10.2 mg/dl (8.4-10.2); Carbon Dioxide 24 mmol/L (22-30); Chloride 102 mmol/L (98-107); Glucose 91 mg/dl (70-99); Potassium 4.4 mmol/L (3.5-5.1); Sodium 137 mmol/L (135-145); eGFR 46.33
== END ==
LOC: REG 11:19
PROVIDERS: ATTENDING PHYSICIAN Student in an Organized Health Care Education/Training Program; FAMILY PHYSICIAN Physician Assistant
DX: J85.1 Abscess of lung with pneumonia (principal)
CPT/HCPCS: 36415; 80048; 85025; 85652; 86140

== ENCOUNTER → 2024-10-19 11:58 | Outpatient (REF) | payer OTHER, SELFPAY ==
[2024-10-19 13:43] LABS: % Basophils 0.6 % (0-2); % Eosinophils 0.8 % (0-6); % Immature Granulocytes 0.5 % (0-0.5); % Lymphocytes 13.9 % (20.5-51.1); % Monocytes 7.9 % (1.7-9.3); % Neutrophils 76.3 % (42.2-75.2); Absolute Basophils 0.1 10^3/uL (0-0.2); Absolute Eosinophils 0.1 10^3/uL (0-0.7); Absolute Immature Granulocytes 0.1 10^3/uL (0-0.05); Absolute Lymphocytes 1.6 10^3/uL (1.2-3.4); Absolute Monocytes 0.9 10^3/uL (0.1-0.6); Absolute Neutrophils 8.8 10^3/uL (1.4-6.5); Hematocrit 30.8 % (37.0-47.0); Hemoglobin 9.7 g/dL (12.0-16.0); Mean Corp Hgb Conc. 31.5 g/dL (33.0-37.0); Mean Corpuscular Hgb 31.7 pg (27.0-31.0); Mean Corpuscular Volume 100.7 fL (81.0-99.0); Mean Platelet Volume 8.2 fL (7.4-10.4); Nucleated Red Blood Cells % 0 %; Platelet Count 342 10^3/uL (130-400); Red Blood Cell Count 3.06 10^6/uL (4.20-5.40); Red Cell Dist. Width 20.4 % (11.5-14.5); White Blood Cell Count 11.5 10^3/uL (4.8-10.8)
[2024-10-19 14:16] LABS: C-Reactive Protein < 5.00 mg/L (0.0-10.00)
[2024-10-19 14:17] LABS: ALT (SGPT) 23 U/L (0-35); AST (SGOT) 38 U/L (14-36); Albumin 4.1 g/dl (3.5-5.0); Alkaline Phosphatase 77 U/L (38-126); Blood Urea Nitrogen 37 mg/dl (7-17); Calcium 9.7 mg/dl (8.4-10.2); Carbon Dioxide 30 mmol/L (22-30); Chloride 103 mmol/L (98-107); Glucose 80 mg/dl (70-99); Potassium 4.2 mmol/L (3.5-5.1); Sodium 139 mmol/L (135-145); Total Bilirubin 0.4 mg/dl (0.2-1.3); Total Protein 7.8 g/dl (6.3-8.2); eGFR > 60.00
[2024-10-19 14:32] LABS: Free T4 0.35 ng/dl (0.78-2.19)
== END ==
LOC: REG 11:58
PROVIDERS: ATTENDING PHYSICIAN Internal Medicine Rheumatology; FAMILY PHYSICIAN Physician Assistant; REFERRING PHYSICIAN Internal Medicine Hematology & Oncology
DX: M05.9 Rheumatoid arthritis with rheumatoid factor, unspecified (principal); Z79.899 Other long term (current) drug therapy; E03.9 Hypothyroidism, unspecified; D63.8 Anemia in other chronic diseases classified elsewhere
CPT/HCPCS: 36415; 80053; 84439; 84443; 85025; 86140

== ENCOUNTER 2024-11-08 23:05 | Inpatient (IN) | payer OTHER, SELFPAY ==
[2024-11-08] VITALS (10 sets, daily range): BP systolic 142–186; BP diastolic 75–100; BMI 16.4
[2024-11-08 16:05] LABS: Hematocrit 31.5 % (37.0-47.0); Hemoglobin 10.1 g/dL (12.0-16.0); Mean Corp Hgb Conc. 32.1 g/dL (33.0-37.0); Mean Corpuscular Volume 100.0 fL (81.0-99.0); Nucleated Red Blood Cells % 0 %; Platelet Count 427 10^3/uL (130-400); Red Cell Dist. Width 15.1 % (11.5-14.5)
[2024-11-08 16:22] LABS: ALT (SGPT) 24 U/L (0-35); AST (SGOT) 37 U/L (14-36); Albumin 4.0 g/dl (3.5-5.0); Alkaline Phosphatase 82 U/L (38-126); Blood Urea Nitrogen 25 mg/dl (7-17); Calcium 9.8 mg/dl (8.4-10.2); Carbon Dioxide 29 mmol/L (22-30); Chloride 98 mmol/L (98-107); Glucose 118 mg/dl (70-99); Potassium 4.6 mmol/L (3.5-5.1); Sodium 134 mmol/L (135-145); Total Protein 8.1 g/dl (6.3-8.2); eGFR > 60.00
[2024-11-08 16:30] LABS: Troponin I 0.023 ng/ml
--- NOTE | 2024-11-08 16:55 | ED.GENMED ---
History of Present Illness
General
Chief Complaint: Change in Mental Status
Source: records and family
Time Seen by Provider: 11/08/24 16:43
History of Present Illness
History of Present Illness:
79-year-old female presents to the emergency room with family for evaluation of increased confusion. Patient does have a history of dementia. Family states that normally she will be fairly oriented during the day and occasionally have some periods
of confusion or agitation. Over the past several days she has been completely confused. Patient was hospitalized here in July for a pneumonia which progressed to lung abscess. She was discharged on long-term antibiotics. Patient seems to
recovered from the infection. She was actually seen by her life sciences manager recently who recommended they obtain an outpatient CAT scan of the head due to her confusion.
Past History
Past History
ED Past Medical History: Cancer (breast), COPD, HTN, Hypercholesterolemia and Psychiatric
ED Past Surgical History: Other (The patient has had a lumpectomy in the left breast, perforated bowel)
Social History
Tobacco: Former smoker
Alcohol: Former
Personal:
Living: with family
Phy Exam
Physical Exam
Physical Exam:
General: Awake, Alert, Oriented X3. No acute distress.
Vitals: unremarkable
Head: Atraumatic
Eyes: Pupils equal, EOMI
Throat: Airway intact, no exudates
Neck: Trachea midline
Lungs: Clear and equal b/l
Heart: Regular rate, no murmurs
Abd: Soft, Nontender, No pulsatile mass
Neuro: Nonfocal
Skin: Warm, dry, no rash
Extremities: pulses equal b/l, no edema
Course
Orders/Labs/Results
Orders:
Orders
11/08/24 15:20
ECG [Electrocardiogram (*1)] Urgent
Reason for Study: Shortness of Breath
11/08/24 15:21
CT Head W/o Iv Contrast Urgent
Comment:
Reason For Exam: change in mental status
EKG- Treatment ONCE
11/08/24 15:53
Complete Blood Count/With Diff Urgent
Comprehensive Metabolic Panel Urgent
Free T4 Urgent
NT-proBNP Urgent
TSH Reflex To Free T4 Urgent
Comment: ADD ON
Troponin I Urgent
11/08/24 16:55
Add On- LAB Urgent
Tests Added?: tsh reflex t4
11/08/24 16:58
CR Chest - 2 Views Urgent
Comment:
Reason For Exam: altered mental status
11/08/24 20:01
Furosemide [Lasix] 40 mg IV NOW STA
11/08/24 21:46
CT Chest With Iv Contrast Urgent
Comment:
Reason For Exam: hypoxia concern pna
11/08/24 22:15
Procalcitonin Urgent
If negative, will antibiotics be d/c'd or not started: Yes
Does the patient have renal or hepatic impairment?: No
Any recent (w/in 48 hrs) physiologic stress (CPR, rhabdo): No
11/08/24 22:35
Consult Notification Routine
Specialty to Notify: Pulmonary
Date consulting provider notified: 11/09/24
Time consulting provider notified: 07:45
Notified:: Provider
Comment: tt sent
PULMONARY CONSULT Routine
Consulting Provider: Grzegorz Spencer
Was physician already notified: No
Reason for consult: Recurrent left lung abscess prior Rama on bronc
11/08/24 22:36
Admit/Transfer Patient As Directed
Co-Sign Provider:
Level of Care: Inpatient admission
Assign to:: Telemetry
Physician / Group: teresa melendrez
Diagnosis: acuteon chronic hypoxic resp insuff , recurrent LLL abscess confusion/hypox
Reason for Telemetry: Arrhythmia
Date to Stop Telemetry: 11/11/24
Time to Stop Telemetry: 11:00
Reason for Hospitalization: acuteon chronic hypoxic resp insuff , recurrent LLL abscess confusion/hypox
Expected length of stay greater than two midnights?: Yes
ELOS- Estimated Length of Stay in days: 5
I certify the patient meets the requirements for IP care: Yes
Consult Notification Routine
Specialty to Notify: Infectious Disease
Date consulting provider notified: 11/09/24
Time consulting provider notified: 08:01
Notified:: Provider
Comment: tt sent
11/08/24 22:37
Code Status As Directed
Resuscitation Status: Full Code
11/08/24 22:41
PRN Pain Medication Management As Directed
May give lesser potent ordered pain med per pt: Yes
preference::
Protocol:: Medication orders for pain may be administered in a
manner that supports deferring to patient preference
when the pt is:
- Requesting an ordered lesser potent pain medication.
Least to most potent pain medications are defined
as: acetaminophen < NSAID < tramadol < opioids
(morphine, oxycodone, hydromorphone).
- Requesting a lesser dose of the same medication IF
ORDERED.
- Requesting a less intrusive route of administration
if both routes are prescribed by the provider (PO <
IV).
11/08/24 23:13
Lorazepam [Ativan] 0.25 mg PO TIDPRN PRN anxiety
11/09/24 00:05
Acetaminophen [Tylenol] 650 mg PO Q4HPRN PRN
Albuterol [ProAIR HFA INHALER] 2 puff INH R Q4HPRN PRN sob
Ibuprofen [Motrin] 400 mg PO BIDPRN PRN mild pain
Prednisone [Deltasone] 5 mg PO DAILYPRN PRN joint pain
11/09/24 00:05
Activity As Directed
Activity Level: With Assistance
Intake/ Output As Directed
Frequency: Per unit guidelines
Pneumatic Compression Sleeves As Directed
Type: Knee high
Vital Signs As Directed
Frequency: Per unit guidelines
Weight As Directed
Frequency: Daily
Pulse Ox/nocturnal-trend w prt [RESP] Routine
Quantity: 1
Desired Oxygen Settin liters
Ot Eval And Treat Routine
Pt Eval And Treat Routine
Activity Level: With Assistance
DX Deep Vein Thrombosis Video Routine
11/09/24 07:11
Complete Blood Count/With Diff IN AM
Comprehensive Metabolic Panel IN AM
11/09/24 08:00
Budesonide/Formoterol 160/4.5 [Symbicort 160/4.5 Mcg Inhaler] 2 puff INH R BID
Escitalopram Oxalate [Lexapro] 20 mg PO DAILY
Famotidine [Pepcid] 20 mg PO DAILY
Lactobac/Bifidobac [Visbiome] 1 cap PO DAILY
Multivitamin [Theragran] 1 tablet PO DAILY
11/09/24 22:00
Atorvastatin [Lipitor] 10 mg PO HS
Hydroxychloroquine [Plaquenil] 200 mg PO Q48H@2200
Hydroxychloroquine [Plaquenil] 400 mg PO Q48H@2200
11/10/24 06:00
Complete Blood Count/With Diff IN AM
Comprehensive Metabolic Panel IN AM
11/11/24 06:00
Complete Blood Count/With Diff IN AM
Comprehensive Metabolic Panel IN AM
11/11/24 11:00
DC Protocol for Telemetry ONCE
11/12/24 06:00
Complete Blood Count/With Diff IN AM
Comprehensive Metabolic Panel IN AM
Abnormal Lab Results
11/08/24
15:53
RBC 3.15 L 10^6/uL
(4.20-5.40)
Hgb 10.1 L g/dL
(12.0-16.0)
Hct 31.5 L %
(37.0-47.0)
MCV 100.0 H fL
(81.0-99.0)
MCH 32.1 H pg
(27.0-31.0)
MCHC 32.1 L g/dL
(33.0-37.0)
RDW 15.1 H %
(11.5-14.5)
Plt Count 427 H 10^3/uL
(130-400)
Absolute Neuts (auto) 9.4 H 10^3/uL
(1.4-6.5)
Absolute Lymphs (auto) 0.4 L 10^3/uL
(1.2-3.4)
Neutrophils % 92.5 H %
(42.2-75.2)
Lymphocytes % 3.8 L %
(20.5-51.1)
Sodium 134 L mmol/L
(135-145)
BUN 25 H mg/dl
(7-17)
Glucose 118 H mg/dl
(70-99)
AST 37 H U/L
(14-36)
TSH (Reflex) 65.50 H uIU/ml
(0.47-4.68)
11/08/24 15:53
11/08/24 15:53
Vital Signs
Initial and Last Documented VS:
Initial Vital Signs
Temp Pulse Resp BP Pulse Ox
97.7 F 106 22 179/96 94
11/08/24 15:16 11/08/24 15:16 11/08/24 15:16 11/08/24 15:16 11/08/24 15:16
Last Documented Vital Signs
Temp Pulse Resp BP Pulse Ox
98.2 F 112 18 117/80 95
11/09/24 23:15 11/09/24 23:15 11/09/24 23:15 11/09/24 23:15 11/09/24 23:15
MDM/Problems Addressed
Differential Diagnosis Includes:
Progression of dementia, electrolyte abnormality, urinary tract infection,
MDM/Problems Addressed:
Patient presents with increasing confusion, new oxygen requirement. Chest x-ray suggest possible heart failure. BNP is elevated 2810. IV Lasix dose given. Will hospitalize the patient for further evaluation
*Pulse Oximetry
SaO2: 96
Nasal Cannula flow liters per minute: 6
Patient hypoxic: yes
*EKG
Interpreted by ED Provider?: Yes
Interpretation: abnormal
Heart Rate: 106
Rate: tachycardiac
Rhythm: sinus
[place]: normal axis
Interval: normal interval
QRS Pattern: normal QRS
Ischemia: non-specific ST changes
*Assistant Child Care Teacher Interpretation
Rate: tachycardiac
Interpretation: abnormal
Heart Rate: 106
Rhythm: sinus
*Critical Care Note
Total Time (30-74mins, 75-104mins- exclusive of procedures): Not Applicable
ED Attending Note
-
Portions of this chart may have been created with voice recognition software.� Occasional wrong word or��sound alike� substitutions may have occurred due to the inherent limitations of voice recognition software.
Discharge Plan
Departure
Patient Disposition: Admit
Date of Disposition: 11/08/24
Time of Disposition: 20:13
Admit to: Med/Surg
Presentation/result/management discussed w/ accepting MD/DO: Hospitalist
Condition: Fair
Discharge Problem:
Confusion, CHF (congestive heart failure)
Interventions
Interventions:
*Risk Screen - Suicide Last Done: 11/08/24 16:46
*General Assessment Last Done: 11/08/24 15:16
*Neglect/Abuse Screening Last Done: 11/08/24 16:46
*ED- Fall Risk Assessment Last Done: 11/08/24 16:46
*ED COVID-19 Vaccine History Last Done: 11/08/24 16:46
*Nursing Disposition Last Done: 11/09/24 00:01
ED- Pulmonary Assessment Last Done: 11/08/24 16:46
ED-Psychological Assessment Last Done: 11/08/24 16:46
ED- Neurological Assessment Last Done: 11/08/24 16:46
ED- Cardiac Assessment Last Done: 11/08/24 16:46
ED Swallowing Screen Last Done: 11/08/24 16:46
Discharge Date and Time
Discharge Date/Time: 11/09/24 00:12
--- NOTE | 2024-11-08 19:15 | EDRN ---
Report received, introduced myself to patient who just got back from bathroom, hooked back up to monitor, updated family, patient asked if she could eat something, provided her wit a turkey sandwich.
--- NOTE | 2024-11-08 20:33 | HPS.HSE ---
Addendum entered and electronically signed by Maria Esther Samaniego MD 11/08/24 23:46:
I have personally seen and examined the patient. I have reviewed the patient with ENGINE LATHE OPERATOR or PA and agree with their note.
79-year-old female with COPD with history of severe left lower lobe pneumonia in July 2024, RA, memory impairment presents with confusion. Notably most mornings she wakes with confusion and after 10 minutes it dissipates however today she was
foggy all day. Her daughter is at bedside and notes today appeared worse.
VSS on exam patient is awake alert and oriented x 3, appears in no acute distress, heart is regular rate and rhythm with no murmurs, lungs have mild decreased breath sounds at bases, abdomen is nontender, soft, no bilateral lower extremity edema.
CT chest:1. There are findings of chronic interstitial/fibrotic lung disease with increased nodular consolidations with surrounding groundglass opacities in the right middle and lower lobes which likely represents pneumonia.
2. Similar appearance of the cystic and nodular opacities within the left lower lobe which may be sequelae of prior cavitary pneumonia/pulmonary abscess.
Assessment and plan:
Confusional episode
acute on chronic respiratory failure with hypoxia secondary to pneumonia
Hypothyroidism
RA
HTN
AMS workup including TSH, vitamin D, ammonia
Reduce medication burden
Concern for hypoxic episodes at night which may be leading to morning confusion
CT scan with pneumonia again but no clinical signs and symptoms of pneumonia, empiric IV antibiotic, infectious disease and pulmonary consults
Patient noncompliant with levothyroxine however T4 is within normal limits, continue Synthroid
Original Note:
Family Physician
-
Family Physician: Abena Abad
Chief Complaint
-
Increased memory impairment/confusion today, hypoxia
History of Present Illness
79-year-old female with history of memory impairment since mid August after returning back from [facility] per he states in the morning she tends to talk unintelligible words for 5 to 10 minutes has some word jargon then resumes
normal orientation during the day. He states she is on chronic oxygen 2 L nasal cannula with pulse ox normally running around 94-95% however he does not monitor it at nighttime to see if she is dropping. She has never had any sleep studies done
she does occasionally snore. He states about 2 weeks ago her symptoms started becoming worse in the mornings had happened over approximately 4-5 times. She currently is awake alert oriented to name, place, year, president however she does not
recall her brother and sister visiting her earlier today. She is currently requiring 4 L to maintain an oxygen saturation of 91%. She denies headache, sore throat, runny nose, fever, chills, chest pain, palpitations, cough, shortness of breath,
abdominal pain, nausea, vomiting, diarrhea, urinary symptoms. She was diagnosed with hypothyroidism back in May according to chart her does recall levothyroxine he believes they have at the house but was not aware she needed to take
this daily. She currently lives with her at home uses a walker in the house but only very short distance and is on chronic 2 L. She has past medical history of severe COPD 2 L dependent, severe left lower lobe pneumonia with lung abscess
bilateral lower lobe bronchiectasis, Rama in sputum July 2024 admission, ex-smoker 2 pack a day stopped 15 years ago chronic anemia, multiple pulmonary nodules stable PET scan since 2020, rheumatoid arthritis with finger deformities, chronic
steroid use for RA, HTN, anxiety depression, hyperlipidemia, underweight with severe protein calorie malnutrition, chronic macrocytic anemia
Medical History
Past Medical History
Past Medical History: Reports Other
Additional Past Medical History:
severe COPD 2 L dependent
severe left lower lobe pneumonia with lung abscess bilateral lower lobe bronchiectasis
Rama in sputum July 2024 admission
ex-smoker 2 pack a day stopped 15 years ago chronic anemia
multiple pulmonary nodules stable PET scan since 2020,
rheumatoid arthritis with finger deformities
chronic steroid use for RA
HTN
anxiety depression
hyperlipidemia
underweight with severe protein calorie malnutrition
Past Surgical History: Reports Other (Lumpectomy/radiation 9093, perforated ulcer repair 2009, right hip replacement)
Social History
Tobacco: Non-smoker
Alcohol: None
Drug: None
Family History
Family History: Unable to Obtain
Allergies / Home Medications
Allergies reflects when Allergies were last updated in [facility].
Home Medications with original date entered in [facility]
Allergy/Medication List:
Allergies
Allergy/AdvReac Type Severity Reaction Status Date / Time
cefaclor (From [facility]) Allergy hives, Verified 11/08/24 15:16
flushed
Home Medications
hydroxychloroquine 200 mg tablet 400 mg PO Q48H@2200 rheumatoid arthritis 04/27/17
Lactobac no.2-Bifidobac no.1-S. thermo 112.5 billion cell capsule (Visbiome) 1 cap PO DAILY probiotic 02/22/24
calcium polycarbophil 625 mg tablet (Fiber (calcium polycarbophil)) 625 mg PO DAILY Supplement 02/22/24
prednisone 5 mg tablet 5 mg PO DAILYPRN PRN joint pain 02/22/24
simvastatin 20 mg tablet 20 mg PO HS cholesterol 02/22/24
therapeutic multivitamin 1 tab PO DAILY Supplement 02/22/24
budesonide 160 mcg-glycopyr 9 mcg-formot 4.8 mcg/actuation HFA inhaler (Breztri Aerosphere) 2 inh inhalation R BID Lung/Breathing Issues 07/23/24
albuterol sulfate 90 mcg/actuation aerosol inhaler 2 puff inhalation R Q4HPRN PRN sob 08/01/24
escitalopram oxalate 20 mg tablet 20 mg PO DAILY Mental Health/Anxiety #0 tabs 08/17/24
famotidine 20 mg tablet 20 mg PO DAILY Gastrointestinal issue #0 tabs 08/17/24
diphenhydramine 25 mg-acetaminophen 500 mg tablet (Tylenol PM Extra Strength) 1 tab PO HSPRN PRN sleep 11/08/24
hydroxychloroquine 200 mg tablet 200 mg PO Q48H@2200 11/08/24
ibuprofen 200 mg tablet (Advil) 400 mg PO BIDPRN PRN mild pain 11/08/24
lorazepam 0.5 mg tablet 0.25 mg PO TIDPRN PRN anxiety 11/08/24
Review of Systems
-
History Source: Patient and Family ( and daughter at bedside)
A 12 point ROS was completed and negative except as noted: Yes
Constitutional: Reports Other (Increased confusion over past 2 weeks worse in a.m. however today progressive); Denies Fever
EENT: Denies Sore Throat or Runny Nose
Respiratory: Reports Other (Hypoxia on 2 L); Denies Cough
Cardiac: Denies Chest Pain, Diaphoresis, Palpitations or Syncope
Abdomen/GI: Denies Abdominal Pain, Nausea, Vomiting, Diarrhea, Constipated or Bloody Stools
: Denies Dysuria, Frequency, Flank Pain, Incontinence, Difficulty Voiding or Urgency
Musculoskeletal: Denies Joint Pain or Edema
Skin: Denies Itching or Rash
Neurological: Reports Other (Chronic limited range of motion right arm to elbow due to rotator cuff tear old); Denies Dizzy, Headache or Weakness
Endocrine: Reports No Symptoms
Hematologic/Lymphatic: Reports No Symptoms
Psych: Reports Calm
Physical Exam
Vital Signs
Vital Signs
Temp Pulse Resp BP Pulse Ox
98.5 F 98 24 166/89 97
11/08/24 16:46 11/08/24 19:15 11/08/24 19:15 11/08/24 19:01 11/08/24 19:15
Physical Exam
General: Comfortable, Conversant and Cachectic; No Slurred Speech
HEENT: NormoCephalic, Anicteric, Moist mucous membranes, PERRLA, [place] Conjunctivae, No Ptosis and Oxygen (4 L nasal cannula)
Respiratory: Decreased Breath Sounds (Throughout both lung abdul); No Wheezes, Rales or Rhonchi
Cardiac: S1/S2 and Regular Rhythm; No Murmur, Rub, Gallop or Peripheral Edema
Breast: Deferred by me
GI: Soft, Non Tender, Non Distended, Normal Bowel Sounds and No Hepatosplenomegaly
Rectal: Deferred by Provider
Genito-urinary: Deferred by me
Musculoskeletal: No Clubbing, No Cyanosis, No Edema and Other (Chronic limited range of motion right arm to elbow due to rotator cuff tear old)
Skin: Warm and Dry; No Rash
Neuro: AO x 3 (Oriented to name, place, year, president but not brother and sister that visit earlier today), Cranial Nerves Intact and Other (Hearing aids bilateral ears); No Slurred Speech, Facial Droop, Tremors or Sedated
Psych: Calm
Laboratory Results
-
11/08/24 15:53
11/08/24 15:53
Laboratory Results
Total Bilirubin 0.4 mg/dl (0.2-1.3) 11/08/24 15:53
AST 37 U/L (14-36) H 11/08/24 15:53
ALT 24 U/L (0-35) 11/08/24 15:53
Alkaline Phosphatase 82 U/L (38-126) 11/08/24 15:53
Troponin I 0.023 ng/ml 11/08/24 15:53
Impression/Plan
-
Impression/plan:
Admit to telemetry
#Acute on chronic hypoxic respiratory failure secondary to left lower lobe recurrent lung abscess/Right middle and lower lobes which likely represents pneumonia.
Previous [facility] culture showing Rama was presumed as normal samara not treated
# July 2024 severe left lower lobe pneumonia (with lung abscess) treated with Augmentin and 4 weeks meropenem via PICC
#Hx Severe COPD with FEV1 1.6L, 68% predicted, severely reduced DLCO
#Hx July 2024 bilateral lower lobe bronchiectasis with interstitial fibrotic changes--s/p bronch with cultures showing few resp samara�required BiPAP
#History of Rama in sputum in July 2024
# Multiple pulmonary nodules-PET scan negative in the past-stable since 2020. Outpatient pulmonary follow-up
91% on 4 L nasal cannula patiently typically 95% on chronic 2 L nasal cannula
-Consult Pulmonary
-Consult infectious disease regarding recurrent lung abscess prior Rama on bronc specimen not treated presumed normal samara
-Resume IV meropenem until seen and evaluated by ID
-Check Pro-Willem
-on Jaspertri, Erin cont Ellipta as OP.
-Continue DuoNebs
-Monitor nighttime pulse oximetry for hypoxia
CXR: Slightly increased interstitial and bibasilar opacities which may be secondary to multifocal pneumonia or superimposed edema in the setting of extensive chronic lung change.
S/P Bronch 08/12/24
Lot of Secretions- Sent for CX-bronc cultures and AFB pending- yeast
Speech and swallow evaluation noted. Video swallow noted. No aspiration
#Increased confusion during a.m. consider possible hypercarbia nocturnal hypoxia, sleep apnea, left lower lobe abscess
Episodes of confusion in a.m. lasting 5 to 10 minutes then resolving once awake however today lasting longer
-Monitor nighttime pulse oximetry
#Hypothyroidism
TSH 65 Free T4 pending(history of TSH 06/11/2024 tsh 199 with free T4 0.20 meds were lost to outpatient follow-up
-Resume levothyroxine 50 mcg
-
# Chronic anemia iron studies unremarkable
Status post 1 unit of PRBC July 2024
# Rheumatoid arthritis on as needed steroids
-continue Plaquenil, prednisone 5 mg daily as needed joint pain
# Hypertension
BP 166/89
# Anxiety and depression
-continue Lexapro, Vilazodone and as needed lorazepam 0.25 mg 3 times daily
# Hyperlipidemia-continue statin
#Chronic macrocytic anemia
Hgb 10
# Underweight with severe protein calorie malnutrition�BMI 16.4
# History of left breast cancer with history of lumpectomy and radiation 1993
# History of perforated peptic ulcer
- Continue Pepcid 20 mg daily
# Ex-smoker�2 pack a day 34 years quit 15 years ago
# DVT prophylaxis on Lovenox
# DNR DNI per family at bedside
--- NOTE | 2024-11-08 20:53 | EDRN ---
BUCK Boyer at bedside working on admission orders
[2024-11-08] MEDS: LASIX 40 MG IV (21:13)
--- NOTE | 2024-11-08 21:57 | EDRN ---
Patient placed on a bed nichols felt like she needed to have a bowl movement, patient only urinated, cleaned up and purwick in place.
--- NOTE | 2024-11-08 22:37 | EDRN ---
Family is requesting a martinez catheter, jane Boyer NP who saw her to ask, will update patient
[2024-11-08 23:08] LABS: Procalcitonin < 0.05 ng/ml (0.0-0.25)
--- NOTE | 2024-11-08 23:16 | EDRN ---
Patient asking about her Ativan, daughter wants to give her own meds, asked her to wait i will have pharmacy verify so I can give it to her.
[2024-11-08] MEDS: ATIVAN 0.25 MG PO (23:25)
--- NOTE | 2024-11-08 23:37 | EDRN ---
Patient onto bedside commode to urinate and back in bed comfortably, report was sent to floor and patient will go up shortly.
[2024-11-09] VITALS (7 sets, daily range): BP systolic 106–153; BP diastolic 55–89; PULSE 105–118; O2SAT 94–96; BMI 16.7; BMI 16.3
[2024-11-09] MEDS: MERREM 500 MG IV ×2 (00:29→07:50)
[2024-11-09] MEDS: STERILE WATER FOR INJECTION 10 ML IV ×2 (00:30→07:50)
--- NOTE | 2024-11-09 01:10 | PTCARENOTE ---
Patient arrived from ED, via stretcher, with daughter accompanying her at the bedside. VSS. Patient denies pain. AAO x 3 yet patient is forgetful and can be impulsive. Bed alarm in place. [facility] with bilateral hearing aids with patient, in her purse,
at the bedside. All admission questions answered by patient's daughter, Mirella. Patient's belongings accounted for, including a cell phone and purse. Patient oriented to room. Bed in lowest position. Call whiteside and personal belongings within reach.
[2024-11-09 07:39] LABS: Hematocrit 31.0 % (37.0-47.0); Hemoglobin 10.2 g/dL (12.0-16.0); Mean Corp Hgb Conc. 32.9 g/dL (33.0-37.0); Mean Corpuscular Volume 98.7 fL (81.0-99.0); Nucleated Red Blood Cells % 0 %; Platelet Count 464 10^3/uL (130-400); Red Cell Dist. Width 14.9 % (11.5-14.5)
[2024-11-09] MEDS: PEPCID 20 MG PO (07:50)
[2024-11-09] MEDS: VISBIOME 1 CAP PO (07:52)
[2024-11-09] MEDS: SYMBICORT 160/4.5 MCG INHALER 2 PUFF INH ×2 (07:52→20:03)
[2024-11-09] MEDS: LEXAPRO 20 MG PO (07:52)
[2024-11-09] MEDS: THERAGRAN 1 TABLET PO (07:52)
--- NOTE | 2024-11-09 08:28 | VNURNOTE ---
Chart reviewed. Patient is current with VN. Will continue to follow hospital course and DC plans.
[2024-11-09 08:30] LABS: ALT (SGPT) 23 U/L (0-35); AST (SGOT) 39 U/L (14-36); Albumin 3.9 g/dl (3.5-5.0); Alkaline Phosphatase 73 U/L (38-126); Blood Urea Nitrogen 26 mg/dl (7-17); Calcium 9.9 mg/dl (8.4-10.2); Carbon Dioxide 31 mmol/L (22-30); Chloride 95 mmol/L (98-107); Estimated Creatinine Clearance 32 ml/min; Glucose 90 mg/dl (70-99); Potassium 4.6 mmol/L (3.5-5.1); Sodium 134 mmol/L (135-145); Total Protein 7.9 g/dl (6.3-8.2); eGFR > 60.00
--- NOTE | 2024-11-09 09:38 | CON.PUL ---
Consultation
Consultation Request
Date/Time Consultation Requested: 11/09/24
Date/Time Consultation Performed: 11/09/24
Performing Provider: Kameron
Reason for Consultation: Change in MS
Medical History
-
History of Present Illness:
Patient is a 79-year-old female with known history of severe RLD/COPD, bilateral lower lobe mild fibrotic changes with traction bronchiectasis and pulmonary nodules who presented to the hospital with increasing cough and some confusion over the last
2 weeks. She was recently diagnosed with dementia per family, has had more confusion and 'fogginess.' Family concerned and brought patient in. She feels her SOB is the same, maybe slightly worse. Patient was recently hospitalized for PNA in August
with difficulty on her recovery due to poor mucus clearance and small lungs. She is very inactive, mostly wheelchair bound. Chest imaging does not show any worsening lung changes. Repeat CT showing more mosaicism/honeycombing than prior.
Past Medical History
Past Medical History: Other (see list below)
Social History
Tobacco: Non-smoker
Alcohol: None
Drug: None
Family History
Family History: Reviewed & Not Pertinent
Allergies / Home Medications
Allergies
Allergy/AdvReac Type Severity Reaction Status Date / Time
cefaclor (From Ceclor) Allergy hives, Verified 11/08/24 15:16
flushed
Home Medications
�Medication �Instructions �Recorded �Confirmed �Last Taken �Type
hydroxychloroquine 200 mg tablet 400 mg PO Q48H@2200 rheumatoid 04/27/17 11/08/24 08/01/24 History
arthritis
Lactobac no.2-Bifidobac no.1-S. 1 cap PO DAILY probiotic 02/22/24 11/08/24 08/01/24 History
thermo 112.5 billion cell capsule
(Visbiome)
calcium polycarbophil 625 mg 625 mg PO DAILY Supplement 02/22/24 11/08/24 11/08/24 History
tablet (Fiber (calcium
polycarbophil))
prednisone 5 mg tablet 5 mg PO DAILYPRN PRN joint pain 02/22/24 11/08/24 08/01/24 History
simvastatin 20 mg tablet 20 mg PO HS cholesterol 02/22/24 11/08/24 11/07/24 History
therapeutic multivitamin 1 tab PO DAILY Supplement 02/22/24 11/08/24 11/08/24 History
budesonide 160 mcg-glycopyr 9 2 inh inhalation R BID 07/23/24 11/08/24 11/08/24 History
mcg-formot 4.8 mcg/actuation HFA Lung/Breathing Issues
inhaler (Breztri Aerosphere)
albuterol sulfate 90 mcg/actuation 2 puff inhalation R Q4HPRN PRN sob 08/01/24 11/08/24 Unknown History
aerosol inhaler
escitalopram oxalate 20 mg tablet 20 mg PO DAILY Mental 08/17/24 11/08/24 11/08/24 Rx
Health/Anxiety #0 tabs
famotidine 20 mg tablet 20 mg PO DAILY Gastrointestinal 08/17/24 11/08/24 11/08/24 Rx
issue #0 tabs
diphenhydramine 25 1 tab PO HSPRN PRN sleep 11/08/24 11/08/24 Unknown History
mg-acetaminophen 500 mg tablet
(Tylenol PM Extra Strength)
hydroxychloroquine 200 mg tablet 200 mg PO Q48H@2200 Antirheumatic 11/08/24 11/08/24 Unknown History
ibuprofen 200 mg tablet (Advil) 400 mg PO BIDPRN PRN mild pain 11/08/24 11/08/24 Unknown History
lorazepam 0.5 mg tablet 0.25 mg PO TIDPRN PRN anxiety 11/08/24 11/08/24 11/08/24 History
Review of Systems
-
History Source: Patient
All other systems: Negative unless noted
Vitals / Labs / Diagnostic Testing
Vital Signs
Temp Pulse Resp BP Pulse Ox
97.9 F 109 18 143/89 95
11/09/24 08:10 11/09/24 08:10 11/09/24 08:10 11/09/24 08:10 11/09/24 08:10
Lab Data
11/09/24 07:11
11/09/24 07:11
Diagnostic Testing:
Physical Exam
-
HEENT: Normocephalic, Anicteric and Moist Mucous Membranes
Cardiovascular: S1/S2 and Regular Rhythm
Respiratory: Rales and Non-Labored Respirations
GI: Soft, Non Distended and Tender
Neurology: Awake, Alert, No Motor Deficits and Other (confused and forgetful)
Skin: Warm and Dry
General: Comfortable and Other (NAD)
Assessment
-
Patient is a 79-year-old female with known history of severe RLD/COPD, bilateral lower lobe mild fibrotic changes with traction bronchiectasis and pulmonary nodules who presented to the hospital with increasing cough and some confusion over the last
2 weeks. She was recently diagnosed with dementia per family, has had more confusion and 'fogginess.' Family concerned and brought patient in. She feels her SOB is the same, maybe slightly worse. Patient was recently hospitalized for PNA in August
with difficulty on her recovery due to poor mucus clearance and small lungs. She is very inactive, mostly wheelchair bound. Chest imaging does not show any worsening lung changes. Repeat CT showing more mosaicism/honeycombing than prior.
Change in MS-subacute
Chronic hypoxic respiratory failure
Suspected CO2 retention
Severe RLD, inability to perform lung testing/airway clearance
Conditions present [employer]ER
Severe Left lower lobe pneumonia s/p bronchoscopy 08/12, mostly lee (mucus plugging/poor airway clearance)
R hip fractures s/p cemented bipolar endoprosthesis 02/23/24 s/p mechanical fall
Multiple lung nodules, measuring 3-5mm
s/p Bronchoscopy results 06/12/20: No endobronchial lesions. BAL was performed in both lower lobes and right upper lobe/AFB neg
COPD, severe
Followed by Dr Melo as OP
PFT - FEV1 was 1.26 L or 59% of predicted and previously was 1.50 L or 74% predicted
Cylindrical bronchiectasis RML and lingula
Fibrosis noted on CT, new/progressed
History of tobacco abuse/[id number] smoking history. Quit around 2009
History of pleural effusion
Interstitial lung disease
Rheumatoid arthritis w/ Immunosuppressed status
History of breast cancer s/p Left lumpectomy and axillary node dissection for stage I left breast carcinoma (1993, radiation/no chemo)
Plan
At this time, patient appears to be comfortable, SOB at baseline
She has baseline use of O2 at 2-3L, no change from prior
Chest imaging showing possible progression of disease on CT but overall not significantly different
She has extensive pulmonary history of severe restriction, poor airway clearance
Prior hospitalization had bronchoscopy performed just for mucus clearance, cultures negative
This will be an ongoing issue
My last visit notes--she is well known to our office:
She is severely deconditioned and underweight.
She has not had significant progress in her ability to ambulate and is now exclusively in the wheelchair due to fall risk.
She did not feel the nebulizer helped in terms of shortness of breath and this was discontinued.
She requires full-time care-taking. Her appetite has been insufficient, she has apparent muscle wasting. She does appear to demonstrate failure to thrive.
It would be worthwhile considering placing her into palliative care services should she continue to decline, this was discussed with her PCP as an OP
Prior speech and swallow evaluation noted
Video swallow performed on 08/13 showing mild oral/pharyngeal dysphagia with no aspiration
Aspiration precautions
Recently diagnosed with mild dementia, she has had increasing fogginess at home
CTH on admission negative
ABG obtained with chronic CO2 retention, I do not think she would tolerate a PAP machine at home
We discussed neurologic eval as OP for her dementia and increasing mental status changes/confusion at home
I suspect some family members are not realistic about her health condition as her son typically takes her to her appts
Remains on supplemental oxygen; wean down O2 flow rate as tolerated while keeping SpO2 88-95%
Prior history:
History of COPD noted: FEV1 was 1.6 L, 68% of predicted as per pulmonary function testing in April 2024 with severely reduced DLCO. Eosinophil count 0-200
Patient also has baseline bronchiectasis w/ interstitial changes
Dr. Horn reviewed with patient and [id number] at bedside that recovery may be difficult given age, comorbidities, chronic immunosuppression, chronic aspiration
Bilateral lower lobe bronchiectasis with interstitial fibrotic changes. Patient's lower lobe bronchiectasis appears to be related to traction due to lower lobe mild fibrotic changes. I reviewed the previous x-rays and CT scans and fibrosis has not
progressed much. This is probably related to underlying diagnosis of rheumatoid arthritis. She does not have a typical UIP radiological pattern
Multiple pulmonary nodules. Previous PET scan has been negative and over the years nodules have stayed stable suggestive of benign etiology. Continue follow-up as an outpatient with pulmonary clinic
Patient follows up with Dr. Correa at [facility] and will resume follow-up after discharge
If all w/u negative, would consider d/c planning per team
Diagnostic Data
CXR 11/08/24- There is slightly increased interstitial and bibasilar opacities which may be secondary to multifocal pneumonia or superimposed edema in the setting of extensive chronic lung change.
CXR 08/15/24- Right PICC tip in the mid third of the superior vena cava. No pneumothorax. No other significant interval change.
08/13/24- Persistent left lung pneumonia, with improved aeration at the left lung base. Subtle air-fluid levels are noted superimposed on the left mid to lower lung zone, consistent with parenchymal cavities, possibly related to necrotizing
pneumonia. Mild thickening along the left major fissure, which could represent inflammatory reaction or fluid.
CT Chest 11/08/24- 1. There are findings of chronic interstitial/fibrotic lung disease with increased nodular consolidations with surrounding groundglass opacities in the right middle and lower lobes which likely represents pneumonia. 2. Similar
appearance of the cystic and nodular opacities within the left lower lobe which may be sequelae of prior cavitary pneumonia/pulmonary abscess.
CT CHEST 08/06/2024: There is increased extensive consolidation throughout the left lower lobe as well as nodular opacities in the right lower lobe consistent with worsening multifocal pneumonia. There are multiple gas containing foci within the
left lower lobe which appears slightly increased from prior and likely represent an element of cavitary pneumonia. Additionally there is a 4.7 x 3.1 cm and a 3.4 x 2.3 cm gas and fluid containing focus within the left lower lobe which are suspicious
for pulmonary abscesses.
CT CHEST 01/2024: 1.). The stability of the multiple bilateral pulmonary nodules dating back to 08/11/2020 suggests that they are benign
2). COPD with worsening predominantly interstitial fibrosis and bronchiectasis at the lung bases
3). Minimal left pleural effusion
ECHO 08/06/24- Normal biventricular size and systolic function without regional wall motion abnormality. No significant valvular disease. No prior study available for comparison.
-----
Total time spent today was 76 minutes for this encounter. Time includes reviewing laboratory test/imaging results, reviewing pertinent medical records, obtaining and reviewing medical history, performing an appropriate exam, ordering medications,
tests and procedures. Time also includes documentation of this encounter, coordinating patient care and communicating with other healthcare professionals. Total time does not include separately billed tests performed on this date of service.
[2024-11-09 10:03] LABS: B.E. 10.2 mmol/L; HCO3 35.0 mmol/L (21-28); O2 Saturation % 98.1 % (94-98); PCO2 47 mmHg (32-35); PO2 77 mmHg (83-108)
[2024-11-09] MEDS: ATIVAN 0.25 MG PO ×2 (10:43→20:33)
--- NOTE | 2024-11-09 12:28 | CM ---
Addendum entered by Yashira Chang 11/09/24 14:36:
Spoke w/ Cindy/[facility] admissions, will have a bed for patient tomorrow
Updated hospitalist
Addendum entered by Yashira Chang 11/09/24 12:34:
Patient is current w/ [facility]
Original Note:
Initial assessment completed. Admitted for increased memory impairment/confusion and hypoxia. Patient currently on 4L O2.
Patient resides w/ spouse in a 2STH, 7 steps to enter. Prev patient was able to independently ambulate w/ cane or RW. Assisted w/ ADLs by spouse. Has home O2 (2L), spouse unable to recall provider as SNF arranged this. Patient prev at [facility] SNF
in July, returned home in August. No HC hx reported. Spouse is sole caregiver for patient.
Address, points of contact and insurance verified
PCP: Abena Abad
Pharmacy: [facility]
Therapy rec SNF at d/c. Discussed w/ spouse who is agreeable, prefers [facility] again
Will need insurance auth
Plan: SNF, [facility] preferred
--- NOTE | 2024-11-09 13:37 | W.DCSUMMARY ---
Discharge Summary
Discharge Data
Date of Admission: 11/08/24
Date of Discharge: 11/09/24
Total time spent discharging patient (in min): 35
-
Pending Results: No
Hospital Course
Discharging Physician :
Disposition :
Primary care physician :
Principal Discharge diagnosis :
Chronic Discharge diagnosis :
Hospital Course :
Important imaging findings :
Procedure findings :
Discharge Plan
-
Patient Disposition: Home with Home Care
Discharge Diagnosis/Procedures: Confusional episode
Diet: Regular
Activity: With assistance and As tolerated
Driving Restrictions: As prior to admission
Other Services: VN, PT and OT
Instructions: Malnutrition - Discharge instructions
Referrals:
Abena Abad PA-C [Family Provider, Internal Medicine]
Nela Melo DO [Active, Pulmonary Medicine]
Referral Note: 1-2 weeks
Additional Discharge Medication Instructions: You were seen for confusion, and your head CT scan was negative and lab work up did not show any issues aside from your known high TSH level (hypothyroidism) and chronic mild anemia. There was initially
concern for pneumonia on your CT scan, however you felt better and your ec teacher feels this is unchanged from your previous. Please follow up with them as outpatient. You should continue to titrate your oxygen as needed for comfort especially
at night. To enhance your nutrition you can supplement your food with Ensure or Boost every day. If you are struggling with appetite, speak to your PCP about further options. You should also follow up with a neurologist regarding the confusion
episodes. A PT/OT home evaluation order has also been placed.
Prescriptions:
New
levothyroxine 50 mcg Tablet
50 mcg PO DAILY @ 0600 Qty: 30 0RF
Continued
hydroxychloroquine 200 MG tablet
400 mg PO Q48H@2200
prednisone 5 mg Tablet
5 mg PO DAILYPRN PRN (Reason: joint pain)
therapeutic multivitamin Tablet
1 tab PO DAILY
Visbiome 112.5 billion cell Capsule
1 cap PO DAILY
simvastatin 20 MG tablet
20 mg PO HS
Breztri Aerosphere 160-9-4.8 mcg/actuation Hfa Aerosol Inhaler
2 inh INHALATION R BID
albuterol sulfate 90 mcg/actuation Hfa Aerosol Inhaler
2 puff INHALATION R Q4HPRN PRN (Reason: sob)
famotidine 20 mg Tablet
20 mg PO DAILY Qty: 0 0RF
escitalopram oxalate 20 MG tablet
20 mg PO DAILY Qty: 0 0RF
ibuprofen [Advil] 200 mg Tablet
400 mg PO BIDPRN PRN (Reason: mild pain)
hydroxychloroquine 200 mg Tablet
200 mg PO Q48H@2200
lorazepam 0.5 mg tablet
0.25 mg PO TIDPRN PRN (Reason: anxiety)
No Action
calcium polycarbophil [Fiber (calcium polycarbophil)] 625 mg Tablet
625 mg PO DAILY
diphenhydramine-acetaminophen [Tylenol PM Extra Strength] 25-500 mg Tablet
1 tab PO HSPRN PRN (Reason: sleep)
Discharge Orders:
Discharge Patient (As Directed); Ordered 11/09/24
Ordered By: Maria Esther Samaniego
Discharge Date and Time
Print Language: SETSWANA
[2024-11-09 14:03] LABS: Hepatitis C Antibody Negative (Negative)
--- NOTE | 2024-11-09 16:54 | W.PN.HOSP.TC ---
Addendum entered and electronically signed by Maria Esther Samaniego MD 11/10/24 13:47:
For Coding - re: IV lasix - Acute noncardiogenic Pulmonary edema
Original Note:
Today's Communication/Plan
-
No further confusion episodes. Seen by pulmonology no acute changes noted, chronic disease burden, stop antibiotics and cleared for discharge, awaiting SNF bed
Assessment / Plan
Assessment / Plan
79-year-old female with COPD with history of severe left lower lobe pneumonia in July 2024, RA, memory impairment presents with confusion.
1. Episodes of confusion
Possibly delirium, versus dementia. Per family patient has undergone neurocognitive testing with PCP that was positive for dementia and has been referred for neurology for confirmation and treatment.
CT head was negative in ED for acute findings
TSH was elevated but improved from prior and T4 was WNL
Check ammonia and vitamin D
Concern for possible hypoxia overnight leading to this presentation. I discussed this possibility with her outpatient office services manager, who notes that patient self titrates her oxygen for comfort. Will defer further testing to outpatient.
2. Chronic hypoxic respiratory failure secondary to COPD and left lower lobe recurrent lung abscess/Right middle and lower lobes pneumonia
Pt had h/o July 2024 severe left lower lobe pneumonia (with lung abscess) treated with Augmentin and 4 weeks meropenem via PICC
Previous bronc culture showing Rama was presumed as normal samara not treated
Considered possible pneumonia, Empirically placed on meropenem, which has been discontinued, checked CT chest which revealed persistent pneumonia in lower lobes, per outpatient office services manager this is due to patient's decreased ability to clear the
old pneumonia and is unlikely to reflect an active infection given the absence of fever and leukocytosis and respiratory distress.
3. Severe COPD with FEV1 1.6L, 68% predicted, severely reduced DLCO
Multiple pulmonary nodules-PET scan negative in the past-stable since 2020. Outpatient pulmonary follow-up
wean O2 to home 2L
-on Erin Daviesta as OP.
-Continue DuoNebs
-Monitor nighttime pulse oximetry for hypoxia
4. Hypothyroidism
TSH 65 Free T4 wnl (history of TSH 06/11/2024 tsh 199 with free T4 0.20)
Patient's thinks he accidentally placed the medication in a drawer and had not been giving it to patient
-Resume levothyroxine 50 mcg
5. Chronic anemia
Continue to monitor, stable
6. Rheumatoid arthritis
-continue Plaquenil ( is trying to verify the dose for pharmacy), prednisone 5 mg daily as needed joint pain
7. Hypertension
BP controlled off meds
8. Anxiety and depression
-continue Lexapro, Vilazodone and as needed lorazepam 0.25 mg 3 times daily
9. Hyperlipidemia-continue statin
10. Underweight with severe protein calorie malnutrition�BMI 16.4
Dietitian consult
Suggested supplementation with Ensure
11. Deconditioning
Seen by PT OT who recommended SNF, has chosen [facility], patient accepted but no bed until 11/10
DVT prophylaxis on Lovenox
Anticipated Discharge: Within 24 hours
Subjective/Interval History
-
Date of Service: November 09, 2024
Patient feels well did not have any confusion episodes this morning. Daughter is at bedside when seen this morning.
Objective Data
-
Labs:
Laboratory Results
11/09/24 11/09/24
07:11 09:55
WBC 10.1
Hgb 10.2 L
Hct 31.0 L
Plt Count 464 H
HCO3 35.0 H
Sodium 134 L
Potassium 4.6
Chloride 95 L
Carbon Dioxide 31 H
BUN 26 H
Creatinine 0.9
Glucose 90
Calcium 9.9
Total Bilirubin 0.4
AST 39 H
ALT 23
Alkaline Phosphatase 73
Vital Signs:
Vital Signs
Temp Pulse Resp BP Pulse Ox
98.1 F 115 14 106/64 95
11/09/24 15:51 11/09/24 15:51 11/09/24 15:51 11/09/24 15:51 11/09/24 16:10
I&O
11/08/24 11/09/24 11/10/24
06:59 06:59 06:59
Intake Total 1640 / 1640
Output Total 500 / 500
Balance 1140 / 1140
Review of Systems
-
All other systems: Reviewed and negative
Physical Exam
-
General: No Apparent Distress and Comfortable
HEENT: Moist Mucous Membranes and PERRLA
Respiratory: Clear to Auscultation and Decreased Breath Sounds; Negative Wheezes, Rales or Rhonchi
Cardiac: Regular Rhythm; Negative Murmur
GI: Soft, Nontender and Nondistended
Musculoskeletal: No Edema
Skin: Warm and Dry
Neuro: Awake and AO x 3
Psych: Calm
Data Reviewed
-
CT Scan: Image personally visualized and interpreted, Report Reviewed by me, Discussed with Physician, Discussed with Patient and Discussed with Family
Labs: Labs Reviewed by me, Discussed with Patient and Discussed with Family
[2024-11-09] MEDS: LIPITOR 10 MG PO (20:34)
[2024-11-10] MEDS: SYNTHROID 50 MCG PO (05:15)
[2024-11-10 05:33] LABS: Hematocrit 32.3 % (37.0-47.0); Hemoglobin 10.4 g/dL (12.0-16.0); Mean Corp Hgb Conc. 32.2 g/dL (33.0-37.0); Mean Corpuscular Volume 100.6 fL (81.0-99.0); Nucleated Red Blood Cells % 0 %; Platelet Count 456 10^3/uL (130-400); Red Cell Dist. Width 14.9 % (11.5-14.5)
[2024-11-10 05:47] VITALS: BMI 16.3
[2024-11-10 06:04] LABS: ALT (SGPT) 23 U/L (0-35); AST (SGOT) 42 U/L (14-36); Albumin 3.8 g/dl (3.5-5.0); Alkaline Phosphatase 62 U/L (38-126); Ammonia < 9 umol/L (9-30); Blood Urea Nitrogen 39 mg/dl (7-17); Calcium 9.5 mg/dl (8.4-10.2); Carbon Dioxide 36 mmol/L (22-30); Chloride 96 mmol/L (98-107); Estimated Creatinine Clearance 22 ml/min; Glucose 95 mg/dl (70-99); Potassium 5.1 mmol/L (3.5-5.1); Sodium 135 mmol/L (135-145); Total Protein 7.5 g/dl (6.3-8.2); eGFR 42.09
[2024-11-10 06:20] LABS: Vitamin D, 25-OH*** 26.0 ng/mL (30-80)
[2024-11-10] MEDS: SYMBICORT 160/4.5 MCG INHALER 2 PUFF INH (07:12)
[2024-11-10] MEDS: LEXAPRO 20 MG PO (07:50)
[2024-11-10] MEDS: VISBIOME 1 CAP PO (07:50)
[2024-11-10] MEDS: PEPCID 20 MG PO (07:50)
[2024-11-10] MEDS: THERAGRAN 1 TABLET PO (07:50)
[2024-11-10 08:02] VITALS: BP 141/78
--- NOTE | 2024-11-10 09:47 | W.PN.HOSP.TC ---
Addendum entered and electronically signed by Porfirio Mckenna MD 11/11/24 15:54:
Patient admitted with acute on chronic hypoxic respiratory failure
Original Note:
Today's Communication/Plan
-
Discharged to short-term rehab today
Assessment / Plan
Assessment / Plan
79-year-old female with COPD with history of severe left lower lobe pneumonia in July 2024, RA, memory impairment presents with confusion.
1. Episodes of confusion
Possibly delirium, versus dementia. Per family patient has undergone neurocognitive testing with PCP that was positive for dementia and has been referred for neurology for confirmation and treatment.
CT head was negative in ED for acute findings. TSH was elevated but improved from prior and T4 was WNL, ammonia levels negative
Concern for possible hypoxia overnight leading to this presentation. Dr. Samaniego discussed this possibility with pt's outpatient business services intern, who notes that patient self titrates her oxygen for comfort.
Will defer further testing to outpatient.
2. Chronic hypoxic respiratory failure secondary to COPD and left lower lobe recurrent lung abscess/Right middle and lower lobes pneumonia
Pt had h/o July 2024 severe left lower lobe pneumonia (with lung abscess) treated with Augmentin and 4 weeks meropenem via PICC
Previous [facility] culture showing Rama was presumed as normal samara not treated
Considered possible pneumonia, Empirically placed on meropenem, which has been discontinued, checked CT chest which revealed persistent pneumonia in lower lobes, per outpatient business services intern this is due to patient's decreased ability to clear the
old pneumonia and is unlikely to reflect an active infection given the absence of fever and leukocytosis and respiratory distress.
Currently requiring 3 L of oxygen, she wears 2 at baseline
3. Severe COPD with FEV1 1.6L, 68% predicted, severely reduced DLCO
Multiple pulmonary nodules-PET scan negative in the past-stable since 2020. Outpatient pulmonary follow-up
wean O2 to home 2L
-on Breztri, Andradelegy cont Ellipta as OP.
-Continue DuoNebs
-Currently requiring 3 L of oxygen, she wears 2 at baseline
4. Hypothyroidism
TSH 65 Free T4 wnl (history of TSH 06/11/2024 tsh 199 with free T4 0.20)
Patient's thinks he accidentally placed the medication in a drawer and had not been giving it to patient
-Resumed levothyroxine 50 mcg
5. Chronic anemia
Continue to monitor, stable
6. Rheumatoid arthritis
-continue Plaquenil ( is trying to verify the dose for pharmacy), prednisone 5 mg daily as needed joint pain
7. Hypertension
BP controlled off meds
8. Anxiety and depression
-continue Lexapro, Vilazodone and as needed lorazepam 0.25 mg 3 times daily
9. Hyperlipidemia-continue statin
10. Underweight with severe protein calorie malnutrition�BMI 16.4
Dietitian consult
Suggested supplementation with Ensure
11. Deconditioning
Seen by PT OT who recommended SNF, has chosen [facility], patient accepted but no bed until 11/10
DVT prophylaxis on Lovenox
Physical Exam
General: Frail, no acute distress
HEENT: Normocephalic, Atraumatic, EOMI, MMM
Respiratory: Clear to Auscultation bilaterally
Cardiac: Normal S1/S2, Regular Rate and Rhythm
GI: Soft, Nontender, Nondistended, Normal Bowel Sounds
Extremities: No Clubbing, Cyanosis, or Edema
Neuro: Pleasantly confused
Psych: Calm, Cooperative
Anticipated Discharge: Today
Subjective/Interval History
-
Date of Service: November 10, 2024
No acute changes. Patient denies shortness of breath, denies chest pain. No fever, no vomiting.
Objective Data
-
Labs:
Laboratory Results
11/10/24
05:20
WBC 8.9
Hgb 10.4 L
Hct 32.3 L
Plt Count 456 H
Sodium 135
Potassium 5.1
Chloride 96 L
Carbon Dioxide 36 H
BUN 39 H
Creatinine 1.3 H
Glucose 95
Calcium 9.5
Total Bilirubin 0.5
AST 42 H
ALT 23
Alkaline Phosphatase 62
Vital Signs:
Vital Signs
Temp Pulse Resp BP Pulse Ox
98.6 F 105 14 141/78 100
11/10/24 08:02 11/10/24 08:02 11/10/24 08:02 11/10/24 08:02 11/10/24 08:02
I&O
11/09/24 11/10/24 11/11/24
06:59 06:59 06:59
Intake Total 1640 / 1640 620 / 620
Output Total 500 / 500
Balance 1140 / 1140 620 / 620
--- NOTE | 2024-11-10 10:19 | PN.CDI ---
CDI
- -
CDI:
Physician Documentation Request
Admit Date: 11/08/24 23:05
Dear Doctor ,
Please review the following and provide your response in the progress notes.
Clinical Indicators:
Pt admitted with new confusion
Documented per ED,' Patient presents with increasing confusion, new oxygen requirement. Chest x-ray suggest possible heart failure. BNP is elevated 2810. IV Lasix dose given. Will hospitalize the patient for further evaluation..Nasal Cannula
flow liters per minute: 6...'
ECHO from past visit 08/06/24, ' LV ejection fraction is 55-60%...'
CXR on admit 11/08, ' There is slightly increased interstitial and bibasilar opacities which may be secondary to multifocal pneumonia or superimposed edema in the setting of extensive chronic lung change....'
Please provide a diagnosis for the above findings/treatment of IV lasix :
Acute Diastolic CHF
Acute noncardiogenic Pulmonary edema
Other ( please specify)
Use of terms such as suspected, likely, concern for, or probable (associated with a specific diagnosis that is being evaluated, monitored, or treated as if it exists) are acceptable and can be coded in the inpatient setting, when documented at the
time of discharge.
Thank you,
Randa Solis RN
CDI Specialist
[place] [facility]
Please use your independent medical judgment in providing your response.
[2024-11-10 11:00] VITALS: O2SAT 84; O2SAT 90
--- NOTE | 2024-11-10 11:01 | W.DCSUMMARY ---
Discharge Summary
Discharge Data
Date of Admission: 11/08/24
Date of Discharge: 11/10/24
-
Pending Results: No
Hospital Course
Discharge diagnosis:
Memory impairment and recently diagnosed mild dementia with intermittent transient confusion
Acute on chronic hypoxic respiratory failure
History of severe left lower lobe pneumonia with lung abscess in July 2024
Severe chronic obstructive pulmonary disease
Hypothyroidism
Chronic anemia
Rheumatoid arthritis
Anxiety/depression
Underweight with severe protein calorie malnutrition
Hyperlipidemia
Consults: Pulmonology
CT chest:
1. There are findings of chronic interstitial/fibrotic lung disease with increased nodular consolidations with surrounding groundglass opacities in the right middle and lower lobes which likely represents pneumonia.
2. Similar appearance of the cystic and nodular opacities within the left lower lobe which may be sequelae of prior cavitary pneumonia/pulmonary abscess.
Hospital course:
79-year-old female with a past medical history of dementia, chronic hypoxic respiratory failure on 2 L, severe pneumonia with lung abscess in July 2024, severe COPD, rheumatoid arthritis, and anxiety/depression who was brought in by her family for
confusion. Family reports patient wakes up with confusion, and after 10 minutes it dissipates. However, patient's confusion persisted the day of admission. Patient initially required as much as 6 L of oxygen in the ER, she requires 2 at baseline.
Chest CT shows groundglass opacities in the right middle and lower lobes which likely represents pneumonia. There is no fever or leukocytosis. Patient was initially treated with IV Merrem. Patient was seen in conjunction with pulmonology.
Pulmonology states that patient's CT findings are due to her decreased ability to clear the old pneumonia and is unlikely to reflect an active infection given the absence of fever and leukocytosis and respiratory distress. Patient's antibiotics
were discontinued.
Pulmonology further notes patient has been having intermittent episodes of confusion at home, which can be worked up with neuropsychiatry outpatient. She is also having poor appetite with severe protein calorie malnutrition, and frailty. She
requires full-time care-taking, and is mostly wheelchair-bound secondary to risk of falls. Pulmonology has recommended palliative care to the family. The family does not seem realistic about her current condition and progressive decline.
Patient was weaned to 3 L of oxygen at rest, 6 L with activity. She was seen in conjunction with PT, who recommended short-term rehab. She is discharged to short-term rehab, and needs to follow-up with her PCP in 1 week, neuropsychiatry in 2-3
weeks.
Disposition: Short-term rehab
Discharge planning: Required 39 minutes
Discharge Plan
-
Patient Disposition: [facility]ci/SNF
Discharge Diagnosis/Procedures: Dementia with intermittent confusion, chronic hypoxic respiratory failure, severe chronic obstructive pulmonary disease, rheumatoid arthritis
Condition: Good
Diet: Regular
Activity: With assistance and As tolerated
Driving Restrictions: As prior to admission
Instructions: Malnutrition - Discharge instructions
Referrals:
Abena Abad PA-C [Family Provider, Internal Medicine]
Nela Melo DO [Active, Pulmonary Medicine]
Referral Note: 1-2 weeks
Additional Discharge Medication Instructions: You were seen for confusion, and your head CT scan was negative and lab work up did not show any issues aside from your known high TSH level (hypothyroidism) and chronic mild anemia. There was initially
concern for pneumonia on your CT scan, however you felt better and your dust control engineer feels this is unchanged from your previous. Please follow up with them as outpatient. You should continue to titrate your oxygen as needed for comfort especially
at night. To enhance your nutrition you can supplement your food with Ensure or Boost every day. If you are struggling with appetite, speak to your PCP about further options. You should also follow up with a neurologist regarding the confusion
episodes.
Prescriptions:
New
levothyroxine 50 mcg Tablet
50 mcg PO DAILY @ 0600 Qty: 30 0RF
Continued
hydroxychloroquine 200 MG tablet
400 mg PO Q48H@2200
prednisone 5 mg Tablet
5 mg PO DAILYPRN PRN (Reason: joint pain)
therapeutic multivitamin Tablet
1 tab PO DAILY
Visbiome 112.5 billion cell Capsule
1 cap PO DAILY
simvastatin 20 MG tablet
20 mg PO HS
Breztri Aerosphere 160-9-4.8 mcg/actuation Hfa Aerosol Inhaler
2 inh INHALATION R BID
albuterol sulfate 90 mcg/actuation Hfa Aerosol Inhaler
2 puff INHALATION R Q4HPRN PRN (Reason: sob)
famotidine 20 mg Tablet
20 mg PO DAILY Qty: 0 0RF
escitalopram oxalate 20 MG tablet
20 mg PO DAILY Qty: 0 0RF
ibuprofen [Advil] 200 mg Tablet
400 mg PO BIDPRN PRN (Reason: mild pain)
hydroxychloroquine 200 mg Tablet
200 mg PO Q48H@2200
lorazepam 0.5 mg tablet
0.25 mg PO TIDPRN PRN (Reason: anxiety)
No Action
calcium polycarbophil [Fiber (calcium polycarbophil)] 625 mg Tablet
625 mg PO DAILY
diphenhydramine-acetaminophen [Tylenol PM Extra Strength] 25-500 mg Tablet
1 tab PO HSPRN PRN (Reason: sleep)
Discharge Orders:
Discharge Patient (As Directed); Ordered 11/10/24
Ordered By: Porfirio Mckenna
Discharge Date and Time
Discharge Date/Time: 11/10/24 13:54
Print Language: ZAMBIAN
[2024-11-10 11:05] VITALS: O2SAT 93; O2SAT 95
--- NOTE | 2024-11-10 11:16 | CM ---
Per [facility], bed available for patient today
Per hospitalist, patient can d/c. Patient at this time is not back at her 2L O2 baseline, will cont 3L
CM called [facility], spoke w/ Rach to obtain auth
Auth approved beginning today, 11/10 next review is 11/15
Auth ref # [id number]
Ambulance auth approved. Ref # [id number]
Ambulance transport forms provided to
Updated family at bedside. IMM verbally reviewed, copy provided, copy on chart
[facility]
Report: [phone]

Plan: [facility] today
--- NOTE | 2024-11-10 11:20 | W.PN.PUL3 ---
Today's Communication / Plan
-
No changes from prior, remains on baseline O2
w/u thus far negative
Discharge planning to SNF likely today
OP FU to be arranged in our office
Assessment
-
Patient is a 79-year-old female with known history of severe RLD/COPD, bilateral lower lobe mild fibrotic changes with traction bronchiectasis and pulmonary nodules who presented to the hospital with increasing cough and some confusion over the last
2 weeks. She was recently diagnosed with dementia per family, has had more confusion and 'fogginess.' Family concerned and brought patient in. She feels her SOB is the same, maybe slightly worse. Patient was recently hospitalized for PNA in August
with difficulty on her recovery due to poor mucus clearance and small lungs. She is very inactive, mostly wheelchair bound. Chest imaging does not show any worsening lung changes. Repeat CT showing more mosaicism/honeycombing than prior.
Change in MS-subacute
Chronic hypoxic respiratory failure
Suspected CO2 retention
Severe RLD, inability to perform lung testing/airway clearance
Conditions present [employer]
Severe Left lower lobe pneumonia s/p bronchoscopy 08/12, mostly lee (mucus plugging/poor airway clearance)
R hip fractures s/p cemented bipolar endoprosthesis 02/23/24 s/p mechanical fall
Multiple lung nodules, measuring 3-5mm
s/p Bronchoscopy results 06/12/20: No endobronchial lesions. BAL was performed in both lower lobes and right upper lobe/AFB neg
COPD, severe
Followed by Dr Melo as OP
PFT - FEV1 was 1.26 L or 59% of predicted and previously was 1.50 L or 74% predicted
Cylindrical bronchiectasis RML and lingula
Fibrosis noted on CT, new/progressed
History of tobacco abuse/[id number] smoking history. Quit around 2009
History of pleural effusion
Interstitial lung disease
Rheumatoid arthritis w/ Immunosuppressed status
History of breast cancer s/p Left lumpectomy and axillary node dissection for stage I left breast carcinoma (1993, radiation/no chemo)
Plan
At this time, patient appears to be comfortable, SOB at baseline
She has baseline use of O2 at 2-3L, no change from prior
Chest imaging showing possible progression of disease on CT but overall not significantly different
She has extensive pulmonary history of severe restriction, poor airway clearance
Prior hospitalization had bronchoscopy performed just for mucus clearance, cultures negative
This will be an ongoing issue
My last visit notes--she is well known to our office:
She is severely deconditioned and underweight.
She has not had significant progress in her ability to ambulate and is now exclusively in the wheelchair due to fall risk.
She did not feel the nebulizer helped in terms of shortness of breath and this was discontinued.
She requires full-time care-taking. Her appetite has been insufficient, she has apparent muscle wasting. She does appear to demonstrate failure to thrive.
It would be worthwhile considering placing her into palliative care services should she continue to decline, this was discussed with her PCP as an OP
Prior speech and swallow evaluation noted
Video swallow performed on 08/13 showing mild oral/pharyngeal dysphagia with no aspiration
Aspiration precautions
Recently diagnosed with mild dementia, she has had increasing fogginess at home
CTH on admission negative
ABG obtained with chronic CO2 retention, I do not think she would tolerate a PAP machine at home
We discussed neurologic eval as OP for her dementia and increasing mental status changes/confusion at home
I suspect some family members are not realistic about her health condition as her son typically takes her to her appts
Remains on supplemental oxygen; wean down O2 flow rate as tolerated while keeping SpO2 88-95%
Prior history:
History of COPD noted: FEV1 was 1.6 L, 68% of predicted as per pulmonary function testing in April 2024 with severely reduced DLCO. Eosinophil count 0-200
Patient also has baseline bronchiectasis w/ interstitial changes
Dr. Horn reviewed with patient and [id number] at bedside that recovery may be difficult given age, comorbidities, chronic immunosuppression, chronic aspiration
Bilateral lower lobe bronchiectasis with interstitial fibrotic changes. Patient's lower lobe bronchiectasis appears to be related to traction due to lower lobe mild fibrotic changes. I reviewed the previous x-rays and CT scans and fibrosis has not
progressed much. This is probably related to underlying diagnosis of rheumatoid arthritis. She does not have a typical UIP radiological pattern
Multiple pulmonary nodules. Previous PET scan has been negative and over the years nodules have stayed stable suggestive of benign etiology. Continue follow-up as an outpatient with pulmonary clinic
Patient follows up with Dr. Correa at [facility] and will resume follow-up after discharge
If all w/u negative, would consider d/c planning per team
D/c planning to SNF
Diagnostic Data
CXR 11/08/24- There is slightly increased interstitial and bibasilar opacities which may be secondary to multifocal pneumonia or superimposed edema in the setting of extensive chronic lung change.
CXR 08/15/24- Right PICC tip in the mid third of the superior vena cava. No pneumothorax. No other significant interval change.
08/13/24- Persistent left lung pneumonia, with improved aeration at the left lung base. Subtle air-fluid levels are noted superimposed on the left mid to lower lung zone, consistent with parenchymal cavities, possibly related to necrotizing
pneumonia. Mild thickening along the left major fissure, which could represent inflammatory reaction or fluid.
CT Chest 11/08/24- 1. There are findings of chronic interstitial/fibrotic lung disease with increased nodular consolidations with surrounding groundglass opacities in the right middle and lower lobes which likely represents pneumonia. 2. Similar
appearance of the cystic and nodular opacities within the left lower lobe which may be sequelae of prior cavitary pneumonia/pulmonary abscess.
CT CHEST 08/06/2024: There is increased extensive consolidation throughout the left lower lobe as well as nodular opacities in the right lower lobe consistent with worsening multifocal pneumonia. There are multiple gas containing foci within the
left lower lobe which appears slightly increased from prior and likely represent an element of cavitary pneumonia. Additionally there is a 4.7 x 3.1 cm and a 3.4 x 2.3 cm gas and fluid containing focus within the left lower lobe which are suspicious
for pulmonary abscesses.
CT CHEST 01/2024: 1.). The stability of the multiple bilateral pulmonary nodules dating back to 08/11/2020 suggests that they are benign
2). COPD with worsening predominantly interstitial fibrosis and bronchiectasis at the lung bases
3). Minimal left pleural effusion
ECHO 08/06/24- Normal biventricular size and systolic function without regional wall motion abnormality. No significant valvular disease. No prior study available for comparison.
-----
Total time spent today was 51 minutes for this encounter. Time includes reviewing laboratory test/imaging results, reviewing pertinent medical records, obtaining and reviewing medical history, performing an appropriate exam, ordering medications,
tests and procedures. Time also includes documentation of this encounter, coordinating patient care and communicating with other healthcare professionals. Total time does not include separately billed tests performed on this date of service.
Subjective Data
-
Date of Service:
Date of Service: November 10, 2024
Chief Complaint: Pulmonary Follow Up
Subjective:
No new complaints, remains clinically unchanged
Objective Data
Data Reviewed
Vital Signs / I&O / Oxygen:
Vital Signs
Temp Pulse Resp BP Pulse Ox
98.6 F 105 14 141/78 90
11/10/24 08:02 11/10/24 08:02 11/10/24 08:02 11/10/24 08:02 11/10/24 11:00
Intake and Output
11/09/24 11/10/24 11/11/24
06:59 06:59 06:59
Intake Total 1640 / 1640 620 / 620
Output Total 500 / 500
Balance 1140 / 1140 620 / 620
SaO2 90
Nasal Cannula flow liters per 2
minute
Physical Exam
General: Comfortable and Other (NAD)
HEENT: Normocephalic, Anicteric and Moist Mucous Membranes
Cardiovascular: S1-S2 and Regular Rhythm
Respiratory: Crackles and Non-Labored Respirations
GI: Soft, Non Distended and Non Tender
Neurology: Awake, Alert and Other (pleasantly confused)
Skin: Warm, Dry and Good Color
Labs/Micro/Reports
Lab Data
11/10/24 05:20
11/10/24 05:20
[2024-11-10 12:16] VITALS: BP 107/59
--- NOTE | 2024-11-11 10:02 | PN.CDI ---
CDI
- -
CDI:
Physician Documentation Request
Admit Date: 11/08/24 23:05
Dear Doctor Do,
Please review the following and provide your response in the progress notes.
Clinical Indicators:
Pt admitted with new confusion
Documented per ED,' Patient presents with increasing confusion, new oxygen requirement. Chest x-ray suggest possible heart failure. BNP is elevated 2810. IV Lasix dose given. Will hospitalize the patient for further evaluation..Nasal Cannula
flow liters per minute: 6...'
Documented per H&P, ' acute on chronic respiratory failure with hypoxia..
Selected Entries
11/08/24
15:16 11/08/24
16:30 11/08/24
16:46
Pulse 106 101
Resp Rate 28
Nasal Cannula flow liters per minute 6
11/08/24
16:58 11/08/24
17:30 11/08/24
20:30
Pulse 103 104
Nasal Cannula flow liters per minute 6
11/08/24
20:45 11/08/24
22:45
Resp Rate 32 32
11/09/24
00:47
Nasal Cannula flow liters per minute 4
Please update the status of Acute Hypoxic Respiratory failure documented in H&P:
Acute Hypoxic Respiratory Failure -resolved/A valid diagnosis
Acute Hypoxic respiratory Failure -Ruled out
Other ( please specify)
Use of terms such as suspected, likely, concern for, or probable (associated with a specific diagnosis that is being evaluated, monitored, or treated as if it exists) are acceptable and can be coded in the inpatient setting, when documented at the
time of discharge.
Thank you,
Randa Solis RN
CDI Specialist
[place] [facility]
Please use your independent medical judgment in providing your response.
== END 2024-11-10 13:54 | DRG 189 ==
LOC: 4 WEST ACU 23:05
PROVIDERS: Clinical Nurse Specialist Family Health; Emergency Medicine; ADMITTING PHYSICIAN Internal Medicine; ATTENDING PHYSICIAN Family Medicine; EMERGENCY PHYSICIAN Emergency Medicine; FAMILY PHYSICIAN Physician Assistant; OTHER PHYSICIAN Internal Medicine
DX: J96.21 Acute and chronic respiratory failure with hypoxia (principal); J81.0 Acute pulmonary edema; E43 Unspecified severe protein-calorie malnutrition; F03.A3 Unspecified dementia, mild, with mood disturbance; Z68.1 Body mass index [BMI] 19.9 or less, adult; D84.9 Immunodeficiency, unspecified; F03.A4 Unspecified dementia, mild, with anxiety; F05 Delirium due to known physiological condition; R41.82 Altered mental status, unspecified; F32.A Depression, unspecified; E78.00 Pure hypercholesterolemia, unspecified; I50.9 Heart failure, unspecified; I11.0 Hypertensive heart disease with heart failure; D53.9 Nutritional anemia, unspecified; M06.9 Rheumatoid arthritis, unspecified; J84.10 Pulmonary fibrosis, unspecified; J44.9 Chronic obstructive pulmonary disease, unspecified; J47.9 Bronchiectasis, uncomplicated; E03.9 Hypothyroidism, unspecified; R62.7 Adult failure to thrive; R91.8 Other nonspecific abnormal finding of lung field; Z96.641 Presence of right artificial hip joint; Z66 Do not resuscitate; Z99.81 Dependence on supplemental oxygen; Z79.52 Long term (current) use of systemic steroids; Z87.01 Personal history of pneumonia (recurrent); Z79.2 Long term (current) use of antibiotics; Z87.891 Personal history of nicotine dependence; Z88.1 Allergy status to other antibiotic agents; Z79.51 Long term (current) use of inhaled steroids; Z85.3 Personal history of malignant neoplasm of breast; Z92.3 Personal history of irradiation; Z87.11 Personal history of peptic ulcer disease; Z91.199 Patient's noncompliance with other medical treatment and regimen due to unspecified reason; Z99.3 Dependence on wheelchair; Z91.81 History of falling
CPT/HCPCS: 36600; 70450; 71046; 71260; 80053; 82140; 82306; 82805; 83880; 84145; 84439; 84443; 84484; 85025; 86803; 93005; 94640; 96374; 97163; 97167; 99285; Q9967

== ENCOUNTER → 2024-11-15 11:20 | Outpatient (REF) | payer OTHER, SELFPAY ==
[2024-11-15 12:28] LABS: Hematocrit 28.8 % (37.0-47.0); Hemoglobin 9.2 g/dL (12.0-16.0); Mean Corp Hgb Conc. 31.9 g/dL (33.0-37.0); Mean Corpuscular Volume 99.0 fL (81.0-99.0); Nucleated Red Blood Cells % 0 %; Platelet Count 423 10^3/uL (130-400); Red Cell Dist. Width 13.9 % (11.5-14.5)
[2024-11-15 12:35] LABS: Blood Urea Nitrogen 34 mg/dl (7-17); Calcium 9.1 mg/dl (8.4-10.2); Carbon Dioxide 27 mmol/L (22-30); Chloride 100 mmol/L (98-107); Glucose 79 mg/dl (70-99); Potassium 5.0 mmol/L (3.5-5.1); Sodium 134 mmol/L (135-145); eGFR 57.66
== END ==
LOC: OLABP 11:20
PROVIDERS: ATTENDING PHYSICIAN Family Medicine
DX: D64.9 Anemia, unspecified (principal); J96.11 Chronic respiratory failure with hypoxia; I10 Essential (primary) hypertension; E03.9 Hypothyroidism, unspecified; E43 Unspecified severe protein-calorie malnutrition; J44.9 Chronic obstructive pulmonary disease, unspecified; F05 Delirium due to known physiological condition; E78.5 Hyperlipidemia, unspecified; F03.90 Unspecified dementia, unspecified severity, without behavioral disturbance, psychotic disturbance, mood disturbance, and anxiety
CPT/HCPCS: 36415; 80048; 85025

== ENCOUNTER → 2024-11-19 09:58 | Outpatient (REF) | payer OTHER, SELFPAY ==
[2024-11-19 10:30] LABS: Blood Urea Nitrogen 38 mg/dl (7-17); Calcium 9.3 mg/dl (8.4-10.2); Carbon Dioxide 27 mmol/L (22-30); Chloride 102 mmol/L (98-107); Glucose 55 mg/dl (70-99); Potassium 4.7 mmol/L (3.5-5.1); Sodium 136 mmol/L (135-145); eGFR > 60.00
== END ==
LOC: OLABP 09:58
PROVIDERS: ATTENDING PHYSICIAN Family Medicine
DX: J96.11 Chronic respiratory failure with hypoxia (principal); D64.9 Anemia, unspecified; E03.9 Hypothyroidism, unspecified; I10 Essential (primary) hypertension; E43 Unspecified severe protein-calorie malnutrition; F05 Delirium due to known physiological condition; J44.9 Chronic obstructive pulmonary disease, unspecified; E78.5 Hyperlipidemia, unspecified; F03.90 Unspecified dementia, unspecified severity, without behavioral disturbance, psychotic disturbance, mood disturbance, and anxiety
CPT/HCPCS: 36415; 80048

== ENCOUNTER 2024-11-19 10:45 | Inpatient (IN) | payer OTHER, SELFPAY ==
[2024-11-19] VITALS (12 sets, daily range): BP systolic 86–151; BP diastolic 41–94; BMI 13.3; BMI 15.1
--- NOTE | 2024-11-19 08:14 | ED.GENMED ---
History of Present Illness
General
Chief Complaint: Breathing Problem
Source: patient and ambulance crew
Exam Limitations: none
Time Seen by Provider: 11/19/24 08:12
History of Present Illness
History of Present Illness:
See MDM
Past History
Past History
ED Past Medical History: Cancer (breast), COPD, HTN, Hypercholesterolemia and Psychiatric
ED Past Surgical History: Other (The patient has had a lumpectomy in the left breast, perforated bowel)
Social History
Tobacco: Former smoker
Alcohol: Former
Personal:
Living: with family
Phy Exam
Physical Exam
Physical Exam:
See MDM
Scores
Heart Failure Risk
Heart Failure Risk Score: Not Applicable
Course
Orders/Labs/Results
Orders:
Orders
11/19/24 08:12
Electrocardiogram (*1) Urgent
Reason for Study: Shortness of Breath
EKG- Treatment ONCE
Dexamethasone Sod Phosphate [Decadron] 10 mg IV NOW STA
Ipratropium/Albuterol Sulfate [Duoneb] 3 ml INH R NOW STA
CR Chest Portable - 1 View Urgent
Comment:
Reason For Exam: SOB, hypoxic
Reason Study Needs to be Portable: Patient Unstable
11/19/24 08:42
Complete Blood Count/With Diff Urgent
Comprehensive Metabolic Panel Urgent
NT-proBNP Urgent
Troponin I Urgent
Abnormal Lab Results
11/19/24
08:42
RBC 3.03 L 10^6/uL
(4.20-5.40)
Hgb 9.7 L g/dL
(12.0-16.0)
Hct 30.9 L %
(37.0-47.0)
MCV 102.0 H fL
(81.0-99.0)
MCH 32.0 H pg
(27.0-31.0)
MCHC 31.4 L g/dL
(33.0-37.0)
Plt Count 407 H 10^3/uL
(130-400)
Abs Immat Gran (auto) 0.1 H 10^3/uL
(0-0.05)
Absolute Neuts (auto) 7.5 H 10^3/uL
(1.4-6.5)
Absolute Lymphs (auto) 0.8 L 10^3/uL
(1.2-3.4)
Absolute Monos (auto) 0.8 H 10^3/uL
(0.1-0.6)
Neutrophils % 80.2 H %
(42.2-75.2)
Lymphocytes % 8.0 L %
(20.5-51.1)
Carbon Dioxide 32 H mmol/L
(22-30)
BUN 37 H mg/dl
(7-17)
AST 37 H U/L
(14-36)
Troponin I 0.064 H* ng/ml
Albumin 3.3 L g/dl
(3.5-5.0)
11/19/24 08:42
11/19/24 08:42
Vital Signs
Initial and Last Documented VS:
Initial Vital Signs
Pulse Resp BP Pulse Ox
116 36 123/94 71
11/19/24 08:16 11/19/24 08:16 11/19/24 08:16 11/19/24 08:16
Last Documented Vital Signs
Pulse Resp BP Pulse Ox
106 26 130/70 93
11/19/24 09:15 11/19/24 09:15 11/19/24 09:01 11/19/24 09:20
MDM/Problems Addressed
Differential Diagnosis Includes:
Note:
CHIEF COMPLAINT(S)
Respiratory distress
HISTORY OF PRESENT ILLNESS
The patient is a 79-year-old female with a known history of Chronic Obstructive Pulmonary Disease (COPD) who presented with respiratory distress approximately 30 to 40 minutes prior to arrival. The patient was admitted from a residential care
facility, [facility], where staff found her in distress. She routinely uses supplementary oxygen at 3 to 4 L/min, however, at the time of distress, her oxygen saturation was recorded at 80% on 5 L/min. Patient apparently was not wearing her oxygen.
When questioned, patient states she thinks it might of fallen off for an undetermined amount of time. EMS adjusted her to a non-rebreather mask at 10 L/min, which improved oxygen saturation to 92-93%.
Prior to arrival, she received one dose of a combination bronchodilator (Duoneb) with no relief, and additional interventions included nitroglycerin administration, which improved her blood pressure and breathing. EMS had stated that they felt that
she had Rales on respiratory exam. Her blood pressure initially was approximately 140 mmHg. She reported feeling better following these interventions.
The patient did not report any history of congestive heart failure, and there were no interventions involving diuretics prior to presentation.
ADDITIONAL HISTORY OBTAINED FROM SOURCES OTHER THAN THE PATIENT
Per EMS, upon evaluation, the patient had bilateral rales on auscultation and showed improvement in symptoms after administration of nitroglycerin.
CHRONIC MEDICAL CONDITIONS SIGNIFICANTLY AFFECTING CARE
Chronic Obstructive Pulmonary Disease (COPD)
PHYSICAL EXAM
General: Alert, no acute distress.
Skin: Warm, dry.
Head: Normocephalic, atraumatic.
Neck: Supple, trachea midline.
Eye Ears, nose, mouth, and throat: Oral mucosa moist.
Cardiovascular: Normal peripheral perfusion, No edema. Regular rate and rhythm
Respiratory: Prolonged expiratory phase. Decreased breath sounds throughout
Gastrointestinal: Abdomen nondistended
Musculoskeletal: Normal range of motion, normal strength.
Neurological: Alert and oriented to person, place, time, and situation, No focal neurological deficit observed.
Psychiatric: Cooperative, appropriate mood & affect.
PROBLEM LIST
Acute:
- Respiratory distress related to COPD exacerbation
Chronic:
- Chronic Obstructive Pulmonary Disease (COPD)
PLAN
1. Continue oxygen therapy.
2. Administer steroids for COPD management.
3. Obtain chest X-ray and blood work to evaluate the patient�s current status.
4. Monitor for improvement to determine if a return to the residential care facility is appropriate.
DIFFERENTIAL DIAGNOSIS
The Differential Diagnosis includes, in no particular order and is not limited to:
1. COPD exacerbation
2. Pneumonia
3. Congestive heart failure
4. Pulmonary embolism
5. Acute respiratory distress syndrome (ARDS)
6. Acute bronchitis
7. Asthma exacerbation
8. Pulmonary edema
9. Pleural effusion
10. Pneumothorax
Note:
CHIEF COMPLAINT(S)
Respiratory distress
HISTORY OF PRESENT ILLNESS
The patient is a 79-year-old female with a known history of Chronic Obstructive Pulmonary Disease (COPD) who presented with respiratory distress approximately 30 to 40 minutes prior to arrival. The patient was admitted from a residential care
facility, [facility], where staff found her in distress. She routinely uses supplementary oxygen at 3 to 4 L/min, however, at the time of distress, her oxygen saturation was recorded at 80% on 5 L/min. EMS adjusted her to a non-rebreather mask at 10
L/min, which improved oxygen saturation to 92-93%.
Prior to arrival, she received one dose of a combination bronchodilator (Duoneb) with no relief, and additional interventions included nitroglycerin administration, which improved her blood pressure and breathing. Her blood pressure initially was
approximately 140 mmHg. She reported feeling better following these interventions.
The patient did not report any history of congestive heart failure, and there were no interventions involving diuretics prior to presentation. The patient mentioned she did not deliberately remove her oxygen, implying it might have accidentally
fallen off.
ADDITIONAL HISTORY OBTAINED FROM SOURCES OTHER THAN THE PATIENT
Per EMS, upon evaluation, the patient had bilateral rales on auscultation and showed improvement in symptoms after administration of nitroglycerin.
CHRONIC MEDICAL CONDITIONS SIGNIFICANTLY AFFECTING CARE
Chronic Obstructive Pulmonary Disease (COPD)
PHYSICAL EXAM
General: Alert, no acute distress.
Skin: Warm, dry.
Head: Normocephalic, atraumatic.
Neck: Supple, trachea midline.
Eye Ears, nose, mouth, and throat: Oral mucosa moist.
Cardiovascular: Normal peripheral perfusion, No edema.
Respiratory: Bilateral rales, respirations are improved with non-rebreather.
Gastrointestinal: Abdomen nondistended
Back: Normal range of motion, Normal alignment.
Musculoskeletal: Normal range of motion, normal strength.
Neurological: Alert and oriented to person, place, time, and situation, No focal neurological deficit observed.
Psychiatric: Cooperative, appropriate mood & affect.
PROBLEM LIST
Acute:
- Respiratory distress related to COPD exacerbation
Chronic:
- Chronic Obstructive Pulmonary Disease (COPD)
PLAN
1. Continue oxygen therapy.
2. Administer steroids for COPD management.
3. Obtain chest X-ray and blood work to evaluate the patient�s current status.
4. Monitor for improvement to determine if a return to the residential care facility is appropriate.
DIFFERENTIAL DIAGNOSIS
The Differential Diagnosis includes, in no particular order and is not limited to:
1. COPD exacerbation
2. Pneumonia
3. Congestive heart failure
4. Pulmonary embolism
5. Acute respiratory distress syndrome (ARDS)
6. Acute bronchitis
7. Asthma exacerbation
8. Pulmonary edema
9. Pleural effusion
10. Pneumothorax
EKG
My independent EKG interpretation is:
- Rhythm: Sinus tachycardia
- Heart Rate: 109 beats per minute
- [place]: Left axis deviation
- Intervals: Within normal limits
- Abnormalities: Incomplete right bundle branch block
- No signs of ST-segment elevation myocardial infarction (STEMI)
CARE-UPDATE
11/19/24 - 09:11
Patient reports slight improvement with duoneb and steroids. Mild hypoxemia present on 6L oxygen, but achieving 100% saturation on a non-rebreather. Plan to reduce oxygen to avoid over-oxygenation due to COPD history, switching to a Venti mask.
Chest X-ray reviewed, showing no pneumonia or pulmonary edema. Radiology confirms advanced interstitial lung disease without acute changes.
CARE-UPDATE
11/19/24 - 09:20
The patients current mild trop elevation is consistent with previous baseline values noted in historical records; maintaining close monitoring and routine follow-up to ensure stability. No immediate changes to the treatment plan are necessary at
this time.
Disposition:
SUMMARY OF ENCOUNTER
The patient, a 79-year-old female with a known history of Chronic Obstructive Pulmonary Disease (COPD), presented to the emergency department in respiratory distress. She was admitted following an episode at a residential care facility where her
oxygen saturation was recorded at 80% on 5 L/min oxygen, prompting EMS to increase to a non-rebreather mask at 10 L/min, improving her oxygen saturation to 92-93%. She was initially treated with a combination bronchodilator and nitroglycerin, which
helped improve her breathing and blood pressure. On arrival, her treatment in the ED included continuation of oxygen therapy and administration of steroids, monitoring for improvement in respiratory status.
DISPOSITION
Admit
ASSESSMENT
COPD exacerbation with mild hypoxia, improving with treatment, mild persistent troponin elevation likely at baseline, with no acute pathology on chest X-ray.
EMERGENCY TREATMENTS ADMINISTERED
Oxygen therapy, Steroids
MANAGEMENT OF THE PATIENTS CARE WAS DISCUSSED WITH
Hospitalist
PLAN
Continue oxygen therapy, administer steroids for COPD management, admission for further monitoring and treatment of COPD exacerbation and mild hypoxia.
INDEPENDENT REVIEW OF LABS AND INTERPRETATION OF TESTS
- My independent review of the chest X-ray reveals no acute pathology.
- My independent review of the troponin indicates a mild elevation consistent with baseline values.
MEDICATION RECONCILIATION
- Oxygen therapy
- Combination bronchodilator, nitroglycerin, steroids
MEDICAL DECISION MAKING
1. Number and Complexity of Problems Addressed: Chronic conditions affecting care include Chronic Obstructive Pulmonary Disease (COPD) and DDx list including COPD exacerbation, pneumonia, congestive heart failure, pulmonary embolism, acute
respiratory distress syndrome (ARDS), acute bronchitis, asthma exacerbation, pulmonary edema, pleural effusion, pneumothorax.
2. Data:
- Category 1: My independent interpretation of the chest X-ray shows no acute pathology.
- Clinical information was obtained from an independent historian: EMS report.
3. Risk: Prescription medication management involved with initiation of steroids and continued oxygen therapy; decision to admit patient due to the risk associated with her presenting complaints and underlying COPD.
DIAGNOSIS
- COPD exacerbation (J44.1)
- Mild hypoxia (R09.02)
*Pulse Oximetry
SaO2: 88
Nasal Cannula flow liters per minute: 6
Patient hypoxic: yes
*Critical Care Note
Total Time (30-74mins, 75-104mins- exclusive of procedures): 33 min
comment:
The high probability of a clinically significant, sudden or life threatening deterioration of the pulmonary system(s) required my full and direct attention, intervention and personal management. The aggregate critical care time was 33 minutes. This
time is in addition to time spent performing reported procedures but includes the following:
[x] Data Review and interpretation
[x] Patient assessment and monitoring of vital signs
[x] Documentation
[x] Medication orders and management
ED Attending Note
-
Portions of this chart may have been created with voice recognition software.� Occasional wrong word or��sound alike� substitutions may have occurred due to the inherent limitations of voice recognition software.
Discharge Plan
Departure
Patient Disposition: Admit
Date of Disposition: 11/19/24
Time of Disposition: 09:22
Admit to: Med/Surg
Presentation/result/management discussed w/ accepting MD/DO: Hospitalist
Discharge Problem:
Acute exacerbation of chronic obstructive pulmonary disease, Hypoxia
Prescriptions:
No Action
hydroxychloroquine 200 MG tablet
400 mg PO Q48H@2200
prednisone 5 mg Tablet
5 mg PO DAILYPRN PRN (Reason: joint pain)
therapeutic multivitamin Tablet
1 tab PO DAILY
Visbiome 112.5 billion cell Capsule
1 cap PO DAILY
simvastatin 20 MG tablet
20 mg PO QPM
Breztri Aerosphere 160-9-4.8 mcg/actuation Hfa Aerosol Inhaler
2 inh INHALATION R BID
famotidine 20 mg Tablet
20 mg PO DAILY Qty: 0 0RF
ibuprofen [Advil] 200 mg Tablet
400 mg PO BIDPRN PRN (Reason: mild pain)
hydroxychloroquine 200 mg Tablet
200 mg PO Q48H@2200
diphenhydramine-acetaminophen [Tylenol PM Extra Strength] 25-500 mg Tablet
1 tab PO HSPRN PRN (Reason: sleep)
lorazepam 0.5 mg tablet
0.25 mg PO TIDPRN PRN (Reason: anxiety)
ipratropium-albuterol [DuoNeb] 0.5 mg-3 mg(2.5 mg base)/3 mL Solution For Nebulization
3 ml INHALATION R Q6HPRN PRN (Reason: SOB)
ipratropium-albuterol [DuoNeb] 0.5 mg-3 mg(2.5 mg base)/3 mL Solution For Nebulization
3 ml INHALATION R DAILY
magnesium hydroxide [Milk of Magnesia] 400 mg/5 mL Suspension
2,400 mg PO [id number] PRN (Reason: IF NO BM BY 3RD DAY GIVE ON DAY 4)
bisacodyl [Dulcolax (bisacodyl)] 10 mg Suppository
10 mg ME DAILYPRN PRN (Reason: IF NO BM AFTER MOM GIVE ON DAY 5)
calcium polycarbophil [FiberCon] 625 mg Tablet
625 mg PO DAILY
Fleet Enema 19-7 gram/118 mL Enema
118 ml ME DAILYPRN PRN (Reason: IF NO BM AFTR DULCOLAX GIVE ON DAY 6)
escitalopram oxalate [Lexapro] 20 mg Tablet
20 mg PO DAILY
mirtazapine 7.5 mg Tablet
7.5 mg PO HS
levothyroxine 50 mcg tablet
50 mcg PO DAILY
Referrals:
Harmony Valentin DO [Family Provider, General]
Interventions
Interventions:
*Risk Screen - Suicide Last Done: 11/19/24 08:16
*General Assessment Last Done: 11/19/24 08:16
*Neglect/Abuse Screening Last Done: 11/19/24 08:16
*ED- Fall Risk Assessment Last Done: 11/19/24 08:16
*ED COVID-19 Vaccine History Last Done: 11/19/24 08:16
ED- Cardiac Assessment Last Done: 11/19/24 08:50
ED- Pulmonary Assessment Last Done: 11/19/24 08:50
Discharge Date and Time
Print Language: DOMINICAN
--- NOTE | 2024-11-19 08:40 | EDRN ---
Dr. Castro POX on 100% NRBM was 97-100% and on NC 6l was 79% so he is ordering hi betty oxygen. This RN TT'd resp therapist. [facility] done [facility] at this time.
[2024-11-19 08:56] LABS: Hematocrit 30.9 % (37.0-47.0); Hemoglobin 9.7 g/dL (12.0-16.0); Mean Corp Hgb Conc. 31.4 g/dL (33.0-37.0); Mean Corpuscular Volume 102.0 fL (81.0-99.0); Nucleated Red Blood Cells % 0 %; Platelet Count 407 10^3/uL (130-400); Red Cell Dist. Width 13.6 % (11.5-14.5)
[2024-11-19] MEDS: DUONEB 3 ML INH ×3 (08:59→19:53)
[2024-11-19] MEDS: DECADRON 10 MG IV (09:00)
[2024-11-19 09:10] LABS: ALT (SGPT) 25 U/L (0-35); AST (SGOT) 37 U/L (14-36); Albumin 3.3 g/dl (3.5-5.0); Alkaline Phosphatase 78 U/L (38-126); Blood Urea Nitrogen 37 mg/dl (7-17); Calcium 9.9 mg/dl (8.4-10.2); Carbon Dioxide 32 mmol/L (22-30); Chloride 101 mmol/L (98-107); Estimated Creatinine Clearance 26 ml/min; Glucose 89 mg/dl (70-99); Potassium 4.7 mmol/L (3.5-5.1); Sodium 137 mmol/L (135-145); Total Protein 7.0 g/dl (6.3-8.2); eGFR 57.66
[2024-11-19 09:19] LABS: Troponin I 0.064 ng/ml
--- NOTE | 2024-11-19 09:33 | EDRN ---
Dr. Castro in and said for pt to go on high flow to resp therapist in room. Pt is presently on mid flow though nose is very crusted and cleaning out nostrils at this time to attempt mid flow oxygen.
--- NOTE | 2024-11-19 09:37 | EDRN ---
Pt was 98% on mid flow at 15lpm then 97% on 10 lpm and now 98% 7lpm midflow.
--- NOTE | 2024-11-19 10:37 | HPS.HSE ---
Family Physician
-
Family Physician: Harmony Valentin, DO
Chief Complaint
-
shortness of breath
History of Present Illness
Patient is a 79-year-old female with past medical history of COPD, chronic hypoxic respiratory failure, possible restrictive lung disease, history of right hip fracture from mechanical fall post by polar endoprosthesis placement, history of multiple
lung nodules, pulmonary fibrosis, former tobacco use, rheumatoid arthritis, history of breast cancer status post left lumpectomy was brought in from [employer] after patient was noted to be having new onset of dyspnea with worsening hypoxia.
Apparently patient got out of bed and tried to walk to bathroom by herself and in process potentially pulling of the oxygen out of her nose. Patient ended up having a fall, detail unclear if patient lost consciousness. No reported head or any
other injury and patient not voicing any complaints regarding joint/bone pain. Patient was got back into the bed and was noted to be hypoxic. EMS was called and patient was provided with 3 and was requiring higher oxygen. Patient improvement in
symptoms. Patient was brought into ER for further evaluation. By the time in ER patient was in mid flow saturating 87% on 5 L oxygen through mid flow, this was bumped upto 8L with patient oxygen saturation running in 93% range.
Patient still not voicing any complaint of shortness of breath/cough/fever. Denies of having any chest discomfort/palpitation/dizziness. No GI or complains.
Medical History
Past Medical History
Past Medical History: Reports Other
Additional Past Medical History:
COPD, chronic hypoxic respiratory failure, possible restrictive lung disease, history of right hip fracture from mechanical fall post by polar endoprosthesis placement, history of multiple lung nodules, pulmonary fibrosis, former tobacco use,
rheumatoid arthritis, history of breast cancer status post left lumpectomy
Past Surgical History: Reports Other
Social History
Tobacco: Former Smoker
Alcohol: None
Drug: None
Living: Long Term
Family History
Family History: Not pertinent
Allergies / Home Medications
Allergies reflects when Allergies were last updated in [facility].
Home Medications with original date entered in [facility]
Allergy/Medication List:
Allergies
Allergy/AdvReac Type Severity Reaction Status Date / Time
cefaclor (From [facility]) Allergy hives, Verified 11/19/24 10:45
flushed-
tolerated
zosyn
07/2024
Home Medications
hydroxychloroquine 200 mg tablet 400 mg PO Q48H@2200 rheumatoid arthritis 04/27/17
Lactobac no.2-Bifidobac no.1-S. thermo 112.5 billion cell capsule (Visbiome) 1 cap PO DAILY probiotic 02/22/24
prednisone 5 mg tablet 5 mg PO DAILYPRN PRN joint pain 02/22/24
simvastatin 20 mg tablet 20 mg PO QPM cholesterol 02/22/24
therapeutic multivitamin 1 tab PO DAILY Supplement 02/22/24
budesonide 160 mcg-glycopyr 9 mcg-formot 4.8 mcg/actuation HFA inhaler (Breztri Aerosphere) 2 inh inhalation R BID Lung/Breathing Issues 07/23/24
famotidine 20 mg tablet 20 mg PO DAILY Gastrointestinal issue #0 tabs 08/17/24
diphenhydramine 25 mg-acetaminophen 500 mg tablet (Tylenol PM Extra Strength) 1 tab PO HSPRN PRN sleep 11/08/24
hydroxychloroquine 200 mg tablet 200 mg PO Q48H@2200 Antirheumatic 11/08/24
ibuprofen 200 mg tablet (Advil) 400 mg PO BIDPRN PRN mild pain 11/08/24
lorazepam 0.5 mg tablet 0.25 mg PO TIDPRN PRN anxiety 11/08/24
bisacodyl 10 mg rectal suppository (Dulcolax (bisacodyl)) 10 mg MN DAILYPRN PRN IF NO BM AFTER MOM GIVE ON DAY 5 11/19/24
calcium polycarbophil 625 mg tablet (FiberCon) 625 mg PO DAILY 11/19/24
escitalopram oxalate 20 mg tablet (Lexapro) 20 mg PO DAILY 11/19/24
ipratropium 0.5 mg-albuterol 3 mg (2.5 mg base)/3 mL nebulization soln 3 ml inhalation R DAILY 11/19/24
ipratropium 0.5 mg-albuterol 3 mg (2.5 mg base)/3 mL nebulization soln 3 ml inhalation R Q6HPRN PRN SOB 11/19/24
levothyroxine 50 mcg tablet 50 mcg PO DAILY 11/19/24
magnesium hydroxide 400 mg/5 mL oral suspension (Milk of Magnesia) 2,400 mg PO [id number] PRN IF NO BM BY 3RD DAY GIVE ON DAY 4 11/19/24
mirtazapine 7.5 mg tablet 7.5 mg PO HS 11/19/24
sodium phosphates 19 gram-7 gram/118 mL enema (Fleet Enema) 118 ml MN DAILYPRN PRN IF NO BM AFTR DULCOLAX GIVE ON DAY 6 11/19/24
Review of Systems
-
A 12 point ROS was completed and negative except as noted: Yes
Physical Exam
Vital Signs
Vital Signs
Pulse Resp BP Pulse Ox
109 28 129/69 93
11/19/24 10:15 11/19/24 10:15 11/19/24 10:00 11/19/24 10:16
Physical Exam
General: No Apparent Distress and Cachectic
HEENT: Atraumatic and Oxygen (8L midflow)
Respiratory: Wheezes
Cardiac: S1/S2 and Regular Rhythm; No Murmur or Rub
GI: Soft, Non Tender and Non Distended; No Organomegaly
Rectal: Deferred by Provider
Musculoskeletal: No Cyanosis and No Edema
Skin: No Rash
Neuro: Awake, Alert, Oriented and Nonfocal/grossly intact
Laboratory Results
-
11/19/24 08:42
11/19/24 08:42
Laboratory Results
Total Bilirubin 0.5 mg/dl (0.2-1.3) 11/19/24 08:42
AST 37 U/L (14-36) H 11/19/24 08:42
ALT 25 U/L (0-35) 11/19/24 08:42
Alkaline Phosphatase 78 U/L (38-126) 11/19/24 08:42
Troponin I 0.064 ng/ml H* 11/19/24 08:42
Impression/Plan
-
1. COPD flare up
Acute on chronic hypoxic resp failure
h/o of RLD and pulm fibrosis
- Increased oxygen requirement from baseline
- Chest x-ray reviewed and no overt pneumonia
- Got IV Decadron 10 mg in the ER, maintain on 4 mg every 8 hours moving forward
- Nebulizer therapy
- Maintain on doxycycline oral as part of COPD flareup.
- Pulmonology evaluation requested
- Currently patient requiring 8 L oxygen through mid flow to sat 90-93%, wean off to keep in the range
- IMU admit in light of requiring midflow
2. Mechanical fall
- Reported mechanical fall at [facility] in the morning today, events include
- No reported head injury/visible trauma
- If patient complaining any joint/bone pain will require further x-ray
3. Rheumatoid arthritis
- On Plaquenil to be continued
4. Depression/anxiety
- maintain on lexapro
5. Hypothyroidism
- continue on levothyroxine 50mcg/d
DVT PPX - lovenox
DNR - confirmed with family
Total time spent : 82 mins
I personally saw and examined the patient.
I have reviewed all diagnostic interpretations and treatment plans as written.
Time includes patient management by me, time spent at the patients bedside, time to review lab and imaging results, discussing patient care, documentation in the medical record, and time spent with the family or caregiver and discussing care plan
with RN/Consultants.
--- NOTE | 2024-11-19 11:06 | EDRN ---
Pt given marielle naga at this time.
--- NOTE | 2024-11-19 11:19 | CON.PUL ---
Consultation
Consultation Request
Date/Time Consultation Requested: 11/19/2024-12 noon
Date/Time Consultation Performed: 11/20/2019 5-12 noon
Requesting Provider: Hospitalist
Performing Provider: Dr. Molina
Reason for Consultation: COPD exacerbation
Medical History
-
Chief Complaint: Shortness of breath
History of Present Illness:
79-year-old former smoking female with a history of COPD/restrictive lung disease, traction bronchiectasis and pulmonary nodules recently discharged for admission due to CO2 retention and hypoxemia now readmitted with shortness of breath and
pulmonary consulted for COPD exacerbation 11/19/2024.. Much of the history is obtained from the was at the bedside. Patient was at [facility] and was found on the ground without her oxygen and confused. She feels much
improved. She feels that she is back to her baseline now. She is on oxygen and oxygenating well. She denies any chest pain, chest tightness, productive cough, abdominal pain, leg swelling, or focal weakness.
Past Medical History
Past Medical History: None (COPD. Restrictive lung disease. Pneumonia/bronchoscopy July 2024-mucous plugs. Bronchiectasis. History of pleural effusion. Interstitial lung disease. Rheumatoid arthritis/immunosuppressed. Breast cancer/left
lumpectomy 8/stage I 1993 radiation, no chemo.)
Social History
Tobacco: Former Smoker (12-hpet-kriz quit 2009)
Alcohol: None
Drug: None
Personal:
Living: With Family
Occupational Exposures: no known asbestos exposure
Environmental Exposures: no known tuberculosis exposure
Family History
Family History: Reviewed & Not Pertinent
Allergies / Home Medications
Allergies
Allergy/AdvReac Type Severity Reaction Status Date / Time
cefaclor (From Ceclor) Allergy hives, Verified 11/19/24 10:45
flushed-
tolerated
zosyn
07/2024
Home Medications
�Medication �Instructions �Recorded �Confirmed �Last Taken �Type
hydroxychloroquine 200 mg tablet 400 mg PO Q48H@2200 rheumatoid 04/27/17 11/19/24 11/18/24 History
arthritis
Lactobac no.2-Bifidobac no.1-S. 1 cap PO DAILY probiotic 02/22/24 11/19/24 11/19/24 History
thermo 112.5 billion cell capsule
(Visbiome)
prednisone 5 mg tablet 5 mg PO DAILYPRN PRN joint pain 02/22/24 11/19/24 08/01/24 History
simvastatin 20 mg tablet 20 mg PO QPM cholesterol 02/22/24 11/19/24 11/18/24 History
therapeutic multivitamin 1 tab PO DAILY Supplement 02/22/24 11/19/24 11/19/24 History
budesonide 160 mcg-glycopyr 9 2 inh inhalation R BID 07/23/24 11/19/24 11/19/24 History
mcg-formot 4.8 mcg/actuation HFA Lung/Breathing Issues
inhaler (Breztri Aerosphere)
famotidine 20 mg tablet 20 mg PO DAILY Gastrointestinal 08/17/24 11/19/24 11/19/24 Rx
issue #0 tabs
diphenhydramine 25 1 tab PO HSPRN PRN sleep 11/08/24 11/19/24 11/11/24 History
mg-acetaminophen 500 mg tablet
(Tylenol PM Extra Strength)
hydroxychloroquine 200 mg tablet 200 mg PO Q48H@2200 Antirheumatic 11/08/24 11/19/24 11/18/24 History
ibuprofen 200 mg tablet (Advil) 400 mg PO BIDPRN PRN mild pain 11/08/24 11/19/24 11/18/24 History
lorazepam 0.5 mg tablet 0.25 mg PO TIDPRN PRN anxiety 11/08/24 11/19/24 11/19/24 History
bisacodyl 10 mg rectal suppository 10 mg NE DAILYPRN PRN IF NO BM 11/19/24 11/19/24 Unknown History
(Dulcolax (bisacodyl)) AFTER MOM GIVE ON DAY 5
calcium polycarbophil 625 mg 625 mg PO DAILY 11/19/24 11/19/24 11/19/24 History
tablet (FiberCon)
escitalopram oxalate 20 mg tablet 20 mg PO DAILY 11/19/24 11/19/24 11/19/24 History
(Lexapro)
ipratropium 0.5 mg-albuterol 3 mg 3 ml inhalation R DAILY 11/19/24 11/19/24 11/18/24 History
(2.5 mg base)/3 mL nebulization
soln
ipratropium 0.5 mg-albuterol 3 mg 3 ml inhalation R Q6HPRN PRN SOB 11/19/24 11/19/24 11/19/24 History
(2.5 mg base)/3 mL nebulization
soln
levothyroxine 50 mcg tablet 50 mcg PO DAILY 11/19/24 11/19/24 11/19/24 History
magnesium hydroxide 400 mg/5 mL 2,400 mg PO [id number] PRN IF NO BM 11/19/24 11/19/24 Unknown History
oral suspension (Milk of Magnesia) BY 3RD DAY GIVE ON DAY 4
mirtazapine 7.5 mg tablet 7.5 mg PO HS 11/19/24 11/19/24 11/18/24 History
sodium phosphates 19 gram-7 118 ml NE DAILYPRN PRN IF NO BM 11/19/24 11/19/24 Unknown History
gram/118 mL enema (Fleet Enema) AFTR DULCOLAX GIVE ON DAY 6
Review of Systems
-
Unable to Obtain full review of systems at this time due to: Other (Per HPI )
Vitals / Labs / Diagnostic Testing
Vital Signs
Pulse Resp BP Pulse Ox
109 28 129/69 93
11/19/24 10:15 11/19/24 10:15 11/19/24 10:00 11/19/24 10:16
Lab Data
11/19/24 08:42
11/19/24 08:42
Diagnostic Testing:
Physical Exam
-
Exam:
well-nourished and well-developed in no apparent distress
HEENT-atraumatic, normocephalic
Neck-supple, no JVD, no bruit
Heart-regular rate and rhythm-no murmurs, rubs or gallops
Chest diminished breath sounds, prolonged expiratory time, rare crackles and no wheezes
Abdomen-soft, nontender, nondistended, no hepatosplenomegaly
Extremities-no cyanosis, clubbing, edema and good peripheral pulses
Integument-intact, no rashes, lesions or ecchymosis
Neurology-alert and oriented, nonfocal motor and sensory exam
Assessment
-
79-year-old former smoking female with a history of COPD/restrictive lung disease, traction bronchiectasis and pulmonary nodules recently discharged for admission due to CO2 retention and hypoxemia now readmitted with shortness of breath and
pulmonary consulted for COPD exacerbation 11/19/2024
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
Uctfiy-[id number]-wttxomurbl 9.7
Conditions present prior to admission:
Recent hospitalization-discharge 11/10/2024 with confusion with recommendation of neuropsychiatric outpatient workup, pulmonary recommended palliative care to the family
Severe Left lower lobe pneumonia s/p bronchoscopy 08/12/24 mostly lee (mucus plugging/poor airway clearance)
R hip fractures s/p cemented bipolar endoprosthesis 02/23/24 s/p mechanical fall
Multiple lung nodules, measuring 3-5mm
s/p Bronchoscopy results 06/12/20: No endobronchial lesions. BAL was performed in both lower lobes and right upper lobe/AFB neg
COPD, severe-3 L oxygen at rest and 6 L with activity
Followed by Dr Melo as OP
PFT - FEV1 was 1.26 L or 59% of predicted and previously was 1.50 L or 74% predicted
Cylindrical bronchiectasis RML and lingula
Fibrosis noted on CT, new/progressed
History of tobacco abuse/[id number]-[id number] smoking history. Quit around 2009.
Multiple pulmonary nodules..
Mucus plugging
History of pleural effusion
Interstitial lung disease
Rheumatoid arthritis w/ Immunosuppressed status .
Hypothyroid
History of breast cancer s/p Left lumpectomy and axillary node dissection for stage I left breast carcinoma (1993, radiation/no chemo)
Plan
Patient will be admitted to hospital with COPD flare.
Supplemental oxygen as needed.
Noninvasive ventilation/BiPAP if needed.
Follow ABG as needed.
Patient is a DNR.
Decadron 4 mg IV every 8 hours.
Nebulizers- Duo nebs
Aspiration precautions.
Mucolytic's
Mucus clearing devices if needed.
Vest therapy if needed-has history of bronchiectasis
Check cultures.
Empiric antibiotics.
Had a mechanical fall, but no reported injuries.
DVT prophylaxis.
Consider GI prophylaxis.
Nutrition with aspiration precautions.
Early involvement with physical/occupational therapy-came from subacute rehabilitation.
Dr. Molina reviewed with at the bedside 11/19/24
Outpatient follow-up with Dr. Melo-Last seen 11/01/24 and has an appointment 12/02/24 at 11 AM
Diagnostic data:
Chest x-ray 11/19/2024-interstitial lung disease/fibrosis, mild cardiomegaly
CXR 11/08/24- There is slightly increased interstitial and bibasilar opacities which may be secondary to multifocal pneumonia or superimposed edema in the setting of extensive chronic lung change.
CXR 08/15/24- Right PICC tip in the mid third of the superior vena cava. No pneumothorax. No other significant interval change.
Chest x-ray 08/13/24- Persistent left lung pneumonia, with improved aeration at the left lung base. Subtle air-fluid levels are noted superimposed on the left mid to lower lung zone, consistent with parenchymal cavities, possibly related to
necrotizing pneumonia. Mild thickening along the left major fissure, which could represent inflammatory reaction or fluid.
CT Chest 11/08/24- 1. There are findings of chronic interstitial/fibrotic lung disease with increased nodular consolidations with surrounding groundglass opacities in the right middle and lower lobes which likely represents pneumonia. 2. Similar
appearance of the cystic and nodular opacities within the left lower lobe which may be sequelae of prior cavitary pneumonia/pulmonary abscess.
CT CHEST 08/06/2024: There is increased extensive consolidation throughout the left lower lobe as well as nodular opacities in the right lower lobe consistent with worsening multifocal pneumonia. There are multiple gas containing foci within the
left lower lobe which appears slightly increased from prior and likely represent an element of cavitary pneumonia. Additionally there is a 4.7 x 3.1 cm and a 3.4 x 2.3 cm gas and fluid containing focus within the left lower lobe which are suspicious
for pulmonary abscesses.
CT CHEST 01/2024: 1.). The stability of the multiple bilateral pulmonary nodules dating back to 08/11/2020 suggests that they are benign
2). COPD with worsening predominantly interstitial fibrosis and bronchiectasis at the lung bases
3). Minimal left pleural effusion
PET/CT 02/04/20: IMPRESSION:� Pulmonary nodules with minimal FDG activity.� However, despite small size and low level activity, the 6.7 mm index lesion in the right upper lobe has a 25% increase in FDG activity on real-time point imaging. Suspicious
for neoplasm.� No FDG avid adenopathy. Physiologic versus pathologic FDG activity associated with the cecum and ascending colon. Recommend further evaluation/correlation with colonoscopy.� Likely physiologic asymmetric FDG activity associated with
the posterior margin of the left vocal cord. Clinical correlation recommended to exclude the possibility of asymmetric right vocal cord paralysis.
ECHO 08/06/24- Normal biventricular size and systolic function without regional wall motion abnormality. No significant valvular disease. No prior study available for comparison.
Data Reviewed
-
PFT: Report reviewed by me
EKG: Report reviewed by me
Radiology: Image personally visualized and interpreted and Report reviewed by me
CT Scan: Image personally visualized and interpreted and Report reviewed by me
Medical Tests (Nuc Med, Echo etc): Report reviewed by me
Labs: Labs reviewed by me
Old Records: Reviewed
Total Time Spent with Patient (in minutes): 65
--- NOTE | 2024-11-19 11:24 | EDRN ---
Pt sleeping intermittently and POX 84-88% w/ good pleth so Mid flow increased to 10lpm at this time. 93% now on 10Lpm.
--- NOTE | 2024-11-19 11:45 | EDRN ---
Dr. Molina in to see pt at this time
--- NOTE | 2024-11-19 12:26 | CM ---
Patient seen at bedside in ED with sister and . 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 Patient has been at [facility] recently and patient is anticipating that patient will need to return to [facility] when
medically appropriate. Patient is a [facility] member per [facility] commissary representative. Patient previous to hospitalizations has lived with patient and plan is for her to return. Patient family indicated that patient is much better recently due to
thyroid medicine. Patient plan is for return to [facility], CM sent tt to liaison from [facility] and will send updated clinicals. CM will continue to follow for discharge planning needs.
Plan; SNF; [facility] pending acceptance and will need auth
--- NOTE | 2024-11-19 12:44 | EDRN ---
POX > 98% on mid pura at 10 lpm so decreasing back to 7 lpm via MID FLOW.
--- NOTE | 2024-11-19 16:00 | PTCARENOTE ---
Pt from ER on 8 L O2, crackles on R diminished on left. Pt AAO3 some confusion some forgetfulness. No pain at this time.Pt for bedrest at this time. No wounds on admission. daughter and jhusband at bedside
[2024-11-19] MEDS: DUONEB INH (16:40)
[2024-11-19] MEDS: DECADRON 4 MG IV (17:50)
[2024-11-19] MEDS: PULMICORT 0.5 MG INH (19:52)
[2024-11-19] MEDS: MUCINEX 600 MG PO (20:07)
[2024-11-19] MEDS: HEPARIN 2500 UNITS SC (20:07)
[2024-11-19] MEDS: VIBRAMYCIN 100 MG PO (20:07)
[2024-11-19] MEDS: ATIVAN 0.25 MG PO (20:07)
--- NOTE | 2024-11-19 22:47 | PTCARENOTE ---
Received patient at change of shift, aao x2 to person and place. Forgetfulness and confusion noted at times. Spouse at bedside at start of shift. Patients affect friendly. SR to ST on the monitor. Lung sounds diminished throughout with scattered
crackles noted throughout right lobes. Patient on 10L n/c at start of shift with pox in mid 90's. At this time patient 97% on 5L o2 n/c while asleep. Purewick remains in place, small urine to covidien around purewick, hygiene provided. Protective
foams applied to b/l heels and sacrum, skin intact. Call whiteside within reach, will continue to monitor patient closely.
[2024-11-20] VITALS (16 sets, daily range): BP systolic 94–143; BP diastolic 54–109; PULSE 95; O2SAT 97; BMI 15.1
[2024-11-20] MEDS: DECADRON 4 MG IV ×3 (02:14→17:08)
[2024-11-20 04:11] LABS: Hematocrit 29.3 % (37.0-47.0); Hemoglobin 9.1 g/dL (12.0-16.0); Mean Corp Hgb Conc. 31.1 g/dL (33.0-37.0); Mean Corpuscular Volume 101.7 fL (81.0-99.0); Nucleated Red Blood Cells % 0 %; Platelet Count 386 10^3/uL (130-400); Red Cell Dist. Width 13.2 % (11.5-14.5)
[2024-11-20 04:34] LABS: Blood Urea Nitrogen 50 mg/dl (7-17); Calcium 10.2 mg/dl (8.4-10.2); Carbon Dioxide 30 mmol/L (22-30); Chloride 101 mmol/L (98-107); Estimated Creatinine Clearance 26 ml/min; Glucose 123 mg/dl (70-99); Potassium 5.1 mmol/L (3.5-5.1); Sodium 137 mmol/L (135-145); eGFR 51.43
[2024-11-20 04:46] LABS: Troponin I 0.029 ng/ml
--- NOTE | 2024-11-20 06:04 | PTCARENOTE ---
Patient with minimal urine output overnight. Bladder scanned for 699ml. RN discussed patient status with GARMENT EXAMINER; patient not fully understanding the bedpan or purewick. GARMENT EXAMINER instructs ok to get patient oob to bsc with assist x1. RN assisted patient
to bsc, patient urinated 550ml of clear, dark yellow urine. RN assisted patient back to bed x1. Bed alarm on. Will update oncoming RN.
[2024-11-20] MEDS: DUONEB 3 ML INH ×4 (07:21→18:32)
[2024-11-20] MEDS: PULMICORT 0.5 MG INH ×2 (07:21→18:31)
[2024-11-20] MEDS: MUCINEX 600 MG PO ×2 (08:16→20:05)
[2024-11-20] MEDS: VIBRAMYCIN 100 MG PO ×2 (08:16→20:05)
[2024-11-20] MEDS: HEPARIN 2500 UNITS SC ×2 (08:16→20:05)
--- NOTE | 2024-11-20 08:29 | W.PN.HOSP.TC ---
Today's Communication/Plan
-
PT/OT evaluation
transfer to med/surg
continue steroids/neb therapy
Assessment / Plan
Assessment / Plan
1. COPD flare up
Acute on chronic hypoxic respiratory failure
h/o of RLD and pulmonary fibrosis
- Increased oxygen requirement from baseline
- Chest x-ray reviewed and no overt pneumonia
- Got IV Decadron 10 mg in the ER, maintain on 4 mg every 8 hours moving forward
- Nebulizer therapy
- Maintain on doxycycline oral as part of COPD flareup.
- Pulmonology evaluation requested
- Patient was requiring 8 L oxygen through mid flow in ER, has came down to 2 L nasal cannula.
2. Mechanical fall
- Reported mechanical fall at [facility] in the morning today, events include
- No reported head injury/visible trauma
- If patient complaining any joint/bone pain will require further x-ray
3. Rheumatoid arthritis
- On Plaquenil to be continued
4. Depression/anxiety
- maintain on lexapro
5. Hypothyroidism
- continue on levothyroxine 50mcg/d
DVT PPX - lovenox
DNR - confirmed with family
Anticipated Discharge: 24 - 48 hours
Subjective/Interval History
-
Date of Service: November 20, 2024
Patient shortness of breath is improved
Oxygen requirement came down to 2 L through midflow
No acute issue reported
Objective Data
-
Labs:
Laboratory Results
11/20/24
04:00
WBC 7.8
Hgb 9.1 L
Hct 29.3 L
Plt Count 386
Sodium 137
Potassium 5.1
Chloride 101
Carbon Dioxide 30
BUN 50 H
Creatinine 1.1 H
Glucose 123 H
Calcium 10.2
Vital Signs:
Vital Signs
Temp Pulse Resp BP Pulse Ox
97.4 F 84 16 126/69 100
11/20/24 07:00 11/20/24 07:26 11/20/24 07:26 11/20/24 06:00 11/20/24 07:26
I&O
11/19/24 11/20/24 11/21/24
06:59 06:59 06:59
Intake Total 480 / 480
Output Total 550 / 550
Balance -70 / -70
Review of Systems
-
Respiratory: Reports No Symptoms
Cardiac: Reports No Symptoms
Abdomen/GI: Reports No Symptoms
Physical Exam
-
General: Cachectic; Negative Appears in Distress
HEENT: Oxygen (2L midflow)
Respiratory: Clear to Auscultation
Neuro: Awake, Alert and Oriented
--- NOTE | 2024-11-20 08:44 | PTCARENOTE ---
Pt request to sleep longer . Now on 2 l O2.
--- NOTE | 2024-11-20 08:54 | PTCARENOTE ---
Pt desat to 66 O2 to 112 liters now 96
[2024-11-20] MEDS: ATIVAN 0.25 MG PO ×2 (13:39→20:41)
--- NOTE | 2024-11-20 16:33 | W.PN.PUL3 ---
Today's Communication / Plan
-
Continue with steroids + nebulized bronchodilators + ICS to treat for COPD flare
Mucolytics and Mucinex
Aspiration precautions
FINE SANDER evaluation
Doxycycline to cover for atypicals/possible URI
PT/OT
Fall precautions
Outpatient pulmonary office follow-up already arranged for 12/02/2024 with CONCHIS Spivey at 11AM
Of note, she is DNR/DNI but with full medical management
Pulmonary service will continue to follow along
Assessment
-
79-year-old former smoking female with a history of COPD/restrictive lung disease, traction bronchiectasis and pulmonary nodules recently discharged for admission due to CO2 retention and hypoxemia now readmitted with shortness of breath and
pulmonary consulted for COPD exacerbation 11/19/2024
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
Anemia
Conditions present prior to admission:
Recent hospitalization-discharge 11/10/2024 with confusion with recommendation of neuropsychiatric outpatient workup, pulmonary recommended palliative care to the family
Severe Left lower lobe pneumonia s/p bronchoscopy 08/12/24 mostly lee (mucus plugging/poor airway clearance)
R hip fractures s/p cemented bipolar endoprosthesis 02/23/24 s/p mechanical fall
Multiple lung nodules, measuring 3-5mm
s/p Bronchoscopy results 06/12/20: No endobronchial lesions. BAL was performed in both lower lobes and right upper lobe/AFB neg
COPD, severe-3 L oxygen at rest and 6 L with activity
Followed by Dr Melo as OP
PFT - FEV1 was 1.26 L or 59% of predicted and previously was 1.50 L or 74% predicted
Cylindrical bronchiectasis RML and lingula
Fibrosis noted on CT, new/progressed
History of tobacco abuse/42-xril-tlgn smoking history. Quit around 2009.
Multiple pulmonary nodules..
Mucus plugging
History of pleural effusion
Interstitial lung disease
Rheumatoid arthritis w/ Immunosuppressed status .
Hypothyroid
History of breast cancer s/p Left lumpectomy and axillary node dissection for stage I left breast carcinoma (1993, radiation/no chemo)
Plan
Patient admitted to hospital with COPD flare.
Continue supplemental O2, weaning down as tolerated while keeping SpO2 88-95%
She will need an ambulatory pulse oximetry prior to discharge
She reports that she is on 2 L/min nasal cannula ATC at home
Noninvasive ventilation/BiPAP if needed.
Follow ABG as needed.
Patient is a DNR/DNI
Decadron 4 mg IV every 8 hours -this will be weaned as she clinically improves
Nebulizers- Duo nebs + budesonide
Aspiration precautions.
Mucolytics with Mucinex 600 mg PO q12hr
Mucus clearing devices if needed.
Vest therapy if needed-has history of bronchiectasis
Check cultures
Sputum culture if patient can produce a decent sample
MRSA swab is pending
Currently on doxycycline to cover a URI/atypicals especially given her COPD exacerbation; her QTc is 412ms, so we could also use zithromax if needed for TIW treatment if needed for refractory therapy
Had a mechanical fall, but no reported injuries.
Continue fall precautions
DVT prophylaxis - HSQ
GI prophylaxis - Not indicated
Nutrition with aspiration precautions
PT/OT.
Would obtain FINE SANDER eval; she does have a history of mild oral/pharyngeal dysphagia per prior FINE SANDER evaluation in July 2024
Early involvement with physical/occupational therapy-came from subacute rehabilitation.
Dr. Molina reviewed with at the bedside 11/19/24
Outpatient follow-up with Dr. Melo-Last seen 11/01/24 and has an appointment 12/02/24 at 11 AM
Pulmonary service will continue to follow along
Diagnostic data:
Chest x-ray 11/19/2024-interstitial lung disease/fibrosis, mild cardiomegaly
CXR 11/08/24- There is slightly increased interstitial and bibasilar opacities which may be secondary to multifocal pneumonia or superimposed edema in the setting of extensive chronic lung change.
CXR 08/15/24- Right PICC tip in the mid third of the superior vena cava. No pneumothorax. No other significant interval change.
Chest x-ray 08/13/24- Persistent left lung pneumonia, with improved aeration at the left lung base. Subtle air-fluid levels are noted superimposed on the left mid to lower lung zone, consistent with parenchymal cavities, possibly related to
necrotizing pneumonia. Mild thickening along the left major fissure, which could represent inflammatory reaction or fluid.
CT Chest 11/08/24- 1. There are findings of chronic interstitial/fibrotic lung disease with increased nodular consolidations with surrounding groundglass opacities in the right middle and lower lobes which likely represents pneumonia. 2. Similar
appearance of the cystic and nodular opacities within the left lower lobe which may be sequelae of prior cavitary pneumonia/pulmonary abscess.
CT CHEST 08/06/2024: There is increased extensive consolidation throughout the left lower lobe as well as nodular opacities in the right lower lobe consistent with worsening multifocal pneumonia. There are multiple gas containing foci within the
left lower lobe which appears slightly increased from prior and likely represent an element of cavitary pneumonia. Additionally there is a 4.7 x 3.1 cm and a 3.4 x 2.3 cm gas and fluid containing focus within the left lower lobe which are suspicious
for pulmonary abscesses.
CT CHEST 01/2024: 1.). The stability of the multiple bilateral pulmonary nodules dating back to 08/11/2020 suggests that they are benign
2). COPD with worsening predominantly interstitial fibrosis and bronchiectasis at the lung bases
3). Minimal left pleural effusion
PET/CT 02/04/20: IMPRESSION:� Pulmonary nodules with minimal FDG activity.� However, despite small size and low level activity, the 6.7 mm index lesion in the right upper lobe has a 25% increase in FDG activity on real-time point imaging. Suspicious
for neoplasm.� No FDG avid adenopathy. Physiologic versus pathologic FDG activity associated with the cecum and ascending colon. Recommend further evaluation/correlation with colonoscopy.� Likely physiologic asymmetric FDG activity associated with
the posterior margin of the left vocal cord. Clinical correlation recommended to exclude the possibility of asymmetric right vocal cord paralysis.
ECHO 08/06/24- Normal biventricular size and systolic function without regional wall motion abnormality. No significant valvular disease. No prior study available for comparison.
Total time spent today was 37 minutes for this encounter. Time includes reviewing laboratory test/imaging results, reviewing pertinent medical records, obtaining and reviewing medical history, performing an appropriate exam, ordering medications,
tests and procedures. Time also includes documentation of this encounter, coordinating patient care and communicating with other healthcare professionals. Total time does not include separately billed tests performed on this date of service.
Subjective Data
-
Date of Service:
Date of Service: November 20, 2024
Chief Complaint: Pulmonary Follow Up
Subjective:
Patient was seen earlier this afternoon (late note entry). Patient's , Brandon, present at bedside -all questions were answered. Pt is a poor historian.
Currently she is on 4 L/min nasal cannula, saturating 98%. Per the patient/, she is on 2 L/min nasal cannula [id number] at home. She currently feels very well, denying chest pain, WIN, nausea, fevers or chills. Afebrile overnight.
Review of Systems
General: Other (Negative unless mentioned above)
Objective Data
Data Reviewed
Vital Signs / I&O / Oxygen:
Vital Signs
Temp Pulse Resp BP Pulse Ox
97.4 F 84 16 126/69 100
11/20/24 07:00 11/20/24 07:26 11/20/24 07:26 11/20/24 06:00 11/20/24 07:26
Intake and Output
11/19/24 11/20/24 11/21/24
06:59 06:59 06:59
Intake Total 480 / 480
Output Total 550 / 550
Balance -70 / -70
SaO2 100
Nasal Cannula flow liters per 3
minute
Physical Exam
General: Respiratory Distress (negative), Comfortable, Chills (negative) and Sweats (negative)
HEENT: Normocephalic and Anicteric
Cardiovascular: S1-S2 and Peripheral Edema (negative)
Respiratory: Wheeze (negative), Crackles ([place] on left hemithorax), Rhonchi (negative) and Non-Labored Respirations
GI: Soft, Non Distended, Non Tender and Normal Bowel Sounds
Neurology: Awake, Alert, Tremors (negative) and Other (Confused at times)
Skin: Warm, Dry, Cyanosis (negative) and Jaundice (negative)
Labs/Micro/Reports
Lab Data
11/20/24 04:00
11/20/24 04:00
Microbiology
11/19/24 11:13 Nasal Swab Influenza Types A & B (BRI) - Final
Negative for Influenza A & B, NAAT
Negative results must be combined with clinical observations
and patient history.
Nucleic Acid Amplification test (NAAT)performed on the
[employer] platform.
--- NOTE | 2024-11-20 18:29 | PTCARENOTE ---
came to desk states Pt choked on some food , and pt needs a breathing treatment O2 turned up as pt was desating rsp TT and came with tx
--- NOTE | 2024-11-20 22:08 | PTCARENOTE ---
Pt mouth breathing with desat to 80% while laying flat. O2 titrated, deep breathing encouraged, head elevated. Pt recovered to 99%. Bed alarm in place for pt safety. Call whiteside within reach. Pt demonstrates use.
[2024-11-21] VITALS: BP 115/62
[2024-11-21] MEDS: DECADRON 4 MG IV ×3 (01:18→17:28)
[2024-11-21 02:00] VITALS: BP 121/61
[2024-11-21 03:21] VITALS: BMI 15.0
[2024-11-21 04:00] VITALS: BP 127/66
[2024-11-21 05:39] LABS: Hematocrit 27.1 % (37.0-47.0); Hemoglobin 8.7 g/dL (12.0-16.0); Mean Corp Hgb Conc. 32.1 g/dL (33.0-37.0); Mean Corpuscular Volume 101.5 fL (81.0-99.0); Nucleated Red Blood Cells % 0 %; Platelet Count 391 10^3/uL (130-400); Red Cell Dist. Width 13.2 % (11.5-14.5)
[2024-11-21 06:00] VITALS: BP 110/61
[2024-11-21 06:01] LABS: Blood Urea Nitrogen 59 mg/dl (7-17); Calcium 10.0 mg/dl (8.4-10.2); Carbon Dioxide 32 mmol/L (22-30); Chloride 100 mmol/L (98-107); Estimated Creatinine Clearance 29 ml/min; Glucose 114 mg/dl (70-99); Potassium 5.7 mmol/L (3.5-5.1); Sodium 135 mmol/L (135-145); eGFR 57.66
[2024-11-21] MEDS: DUONEB 3 ML INH ×4 (08:02→19:22)
[2024-11-21] MEDS: PULMICORT 0.5 MG INH ×2 (08:02→19:22)
[2024-11-21] MEDS: HEPARIN 2500 UNITS SC ×2 (08:46→19:20)
[2024-11-21] MEDS: VIBRAMYCIN 100 MG PO ×2 (08:46→19:20)
[2024-11-21] MEDS: MUCINEX 600 MG PO ×2 (08:49→19:20)
--- NOTE | 2024-11-21 08:57 | W.PN.HOSP.TC ---
Today's Communication/Plan
-
Continue current care. Improving, but not yet at baseline. PT as tolerated.
Assessment / Plan
Assessment / Plan
79 woman with COPD and respiratory distress.
Assessment & PMH as reviewed on med record, including pulmonary assessment:
Recent hospitalization-discharge 11/10/2024
Severe Left lower lobe pneumonia 08/12/24
R hip fractures s/p cemented bipolar endoprosthesis 02/23/24 (from [facility] fall)
Multiple lung nodules, 3-5mm
s/p Bronchoscopy 06/12/20:
No endobronchial lesions.
BAL was performed in both lower lobes and right upper lobe/AFB neg
COPD, severe-3 L oxygen at rest and 6 L with activity
PFT - FEV1 was 1.26 L or 59% of predicted and previously was 1.50 L or 74% predicted
Cylindrical bronchiectasis RML and lingula
Fibrosis seen on CT
History of tobacco abuse (15-ehal-rcop smoking history. Quit 2009)
Multiple pulmonary nodules
Mucus plugging
History of pleural effusion
Interstitial lung disease
Rheumatoid arthritis w/ Immunosuppressed status
Hypothyroid
History of breast cancer s/p Left lumpectomy and axillary node dissection for stage I left breast carcinoma (1993, radiation/no chemo)
1. COPD flare up - Acute on chronic hypoxic respiratory failure
h/o of RLD and pulmonary fibrosis
- Increased oxygen requirement from baseline
- Chest x-ray reviewed and no overt pneumonia
- Got IV Decadron 10 mg in the ER, maintain on 4 mg every 8 hours moving forward
- Nebulizer therapy
- Maintain on doxycycline oral as part of COPD flareup.
- Pulmonology evaluation appreciated
- Patient was requiring 8 L oxygen through mid flow in ER, has came down to 2 L nasal cannula
D/C when pulmonary feels she is appropriate for discharge and ongoing outpatient recovery
2. Mechanical fall - Reported mechanical fall at [facility] in the morning of admit, events included:
- No reported head injury/visible trauma
- If patient complains any joint/bone pain will require further x-ray
No complaints today
3. Rheumatoid arthritis
- On Plaquenil to be continued
4. Depression/anxiety
- maintain on lexapro
5. Hypothyroidism
- continue on levothyroxine 50mcg/d
DVT PPX - lovenox
DNR - confirmed with family at time of admit
Anticipated Discharge: 24 - 48 hours
Subjective/Interval History
-
Date of Service: November 21, 2024
Feels better today,but still not at baseline.
Objective Data
-
Labs:
Laboratory Results
11/21/24
05:29
WBC 17.5 H
Hgb 8.7 L
Hct 27.1 L
Plt Count 391
Sodium 135
Potassium 5.7 H
Chloride 100
Carbon Dioxide 32 H
BUN 59 H
Creatinine 1.0
Glucose 114 H
Calcium 10.0
Vital Signs:
Vital Signs
Temp Pulse Resp BP Pulse Ox
97.6 F 94 22 110/61 91
11/20/24 23:00 11/21/24 08:18 11/21/24 08:18 11/21/24 06:00 11/21/24 08:18
I&O
11/20/24 11/21/24 11/22/24
06:59 06:59 06:59
Intake Total 480 / 480
Output Total 550 / 550 450 / 450
Balance -70 / -70 -450 / -450
Review of Systems
-
History Source: Patient
All other systems: Reviewed and negative
Respiratory: Reports Trouble Breathing
Physical Exam
-
General: Well Developed, Well Nourished, No Apparent Distress, Comfortable and Other (very thin.)
Respiratory: Rhonchi
Cardiac: Regular Rhythm and S1/S2
GI: Soft, Nontender and Nondistended
Musculoskeletal: No Clubbing, No Cyanosis and No Edema
Skin: Warm and Dry
Neuro: Awake, Alert and Oriented
Psych: Calm
Data Reviewed
-
Labs: Labs Reviewed by me
[2024-11-21 10:00] VITALS: BP 129/90
--- NOTE | 2024-11-21 12:47 | PTOTSP ---
Speech Therapy Assessment
Oral/pharyngeal swallow deemed within functional limits without overt signs of aspiration. Suspect episode from last evening related to known slow esophageal emptying from 08/13/24 VSE, and patient report of recent heartburn as a contributing factor.
Recommend:
1. Continue Regular Solids and Thin Liquids.
2. Meds with liquid or as best tolerated.
3. Intersperse sip of liquid after every 2-3 bites of solid/semi-solid to assist with esophageal clearance.
4. Reflux precautions.
No further skilled ST indicated at this time. Reconsult if needed.
[2024-11-21 13:07] LABS: Blood Urea Nitrogen 60 mg/dl (7-17); Calcium 10.7 mg/dl (8.4-10.2); Carbon Dioxide 33 mmol/L (22-30); Chloride 96 mmol/L (98-107); Estimated Creatinine Clearance 26 ml/min; Glucose 216 mg/dl (70-99); Potassium 5.0 mmol/L (3.5-5.1); Sodium 134 mmol/L (135-145); eGFR 51.43
--- NOTE | 2024-11-21 13:55 | W.PN.PUL3 ---
Today's Communication / Plan
-
Continue with steroids + nebulized bronchodilators + ICS to treat for COPD flare
Start to wean decadron tomorrow to 4mg IV q12hr
Mucolytics and Mucinex
Aspiration precautions
BUTTON PUNCHER evaluation
Doxycycline to cover for atypicals/possible URI
PT/OT
Fall precautions
Outpatient pulmonary office follow-up already arranged for 12/02/2024 with CONCHIS Spivey at 11AM
Of note, she is DNR/DNI but with full medical management
Pulmonary service will continue to follow along
Assessment
-
79-year-old former smoking female with a history of COPD/restrictive lung disease, traction bronchiectasis and pulmonary nodules recently discharged for admission due to CO2 retention and hypoxemia now readmitted with shortness of breath and
pulmonary consulted for COPD exacerbation 11/19/2024
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
Anemia
Conditions present prior to admission:
Recent hospitalization-discharge 11/10/2024 with confusion with recommendation of neuropsychiatric outpatient workup, pulmonary recommended palliative care to the family
Severe Left lower lobe pneumonia s/p bronchoscopy 08/12/24 mostly lee (mucus plugging/poor airway clearance)
R hip fractures s/p cemented bipolar endoprosthesis 02/23/24 s/p mechanical fall
Multiple lung nodules, measuring 3-5mm
s/p Bronchoscopy results 06/12/20: No endobronchial lesions. BAL was performed in both lower lobes and right upper lobe/AFB neg
COPD, severe-3 L oxygen at rest and 6 L with activity
Followed by Dr Melo as OP
PFT - FEV1 was 1.26 L or 59% of predicted and previously was 1.50 L or 74% predicted
Cylindrical bronchiectasis RML and lingula
Fibrosis noted on CT, new/progressed
History of tobacco abuse/[id number]-anuh smoking history. Quit around 2009.
Multiple pulmonary nodules..
Mucus plugging
History of pleural effusion
Interstitial lung disease
Rheumatoid arthritis w/ Immunosuppressed status .
Hypothyroid
History of breast cancer s/p Left lumpectomy and axillary node dissection for stage I left breast carcinoma (1993, radiation/no chemo)
Plan
Patient admitted to hospital with COPD flare.
Continue supplemental O2, weaning down as tolerated while keeping SpO2 88-95%
She will need an ambulatory pulse oximetry prior to discharge
She reports that she is on 2 L/min nasal cannula ATC at home
Noninvasive ventilation/BiPAP if needed.
Follow ABG as needed.
Patient is a DNR/DNI
Decadron 4 mg IV every 8 hours -this will be weaned as she clinically improves --> tomorrow can start to wean down to 4mg IV 12hr
Nebulizers- Duo nebs + budesonide
Aspiration precautions.
Mucolytics with Mucinex 600 mg PO q12hr
Mucus clearing devices if needed.
Vest therapy if needed-has history of bronchiectasis
Check cultures
Sputum culture if patient can produce a decent sample
MRSA swab is negative
Currently on doxycycline to cover a URI/atypicals especially given her COPD exacerbation; her QTc is 412ms, so we could also use zithromax if needed for TIW treatment if needed for refractory therapy
Had a mechanical fall, but no reported injuries.
Continue fall precautions
Potassium level this morning was slightly elevated at 5.7 - recheck BMP later this morning/early afternoon to assure potassium level is stable
DVT prophylaxis - HSQ
GI prophylaxis - Not indicated
Nutrition with aspiration precautions
PT/OT.
Recommend BUTTON PUNCHER eval; she does have a history of mild oral/pharyngeal dysphagia per prior BUTTON PUNCHER evaluation in July 2024
Early involvement with physical/occupational therapy-came from subacute rehabilitation.
Dr. Molina reviewed with at the bedside 11/19/24
Outpatient follow-up with Dr. Melo-Last seen 11/01/24 and has an appointment 12/02/24 at 11 AM
Pulmonary service will continue to follow along
Diagnostic data:
Chest x-ray 11/19/2024-interstitial lung disease/fibrosis, mild cardiomegaly
CXR 11/08/24- There is slightly increased interstitial and bibasilar opacities which may be secondary to multifocal pneumonia or superimposed edema in the setting of extensive chronic lung change.
CXR 08/15/24- Right PICC tip in the mid third of the superior vena cava. No pneumothorax. No other significant interval change.
Chest x-ray 08/13/24- Persistent left lung pneumonia, with improved aeration at the left lung base. Subtle air-fluid levels are noted superimposed on the left mid to lower lung zone, consistent with parenchymal cavities, possibly related to
necrotizing pneumonia. Mild thickening along the left major fissure, which could represent inflammatory reaction or fluid.
CT Chest 11/08/24- 1. There are findings of chronic interstitial/fibrotic lung disease with increased nodular consolidations with surrounding groundglass opacities in the right middle and lower lobes which likely represents pneumonia. 2. Similar
appearance of the cystic and nodular opacities within the left lower lobe which may be sequelae of prior cavitary pneumonia/pulmonary abscess.
CT CHEST 08/06/2024: There is increased extensive consolidation throughout the left lower lobe as well as nodular opacities in the right lower lobe consistent with worsening multifocal pneumonia. There are multiple gas containing foci within the
left lower lobe which appears slightly increased from prior and likely represent an element of cavitary pneumonia. Additionally there is a 4.7 x 3.1 cm and a 3.4 x 2.3 cm gas and fluid containing focus within the left lower lobe which are suspicious
for pulmonary abscesses.
CT CHEST 01/2024: 1.). The stability of the multiple bilateral pulmonary nodules dating back to 08/11/2020 suggests that they are benign
2). COPD with worsening predominantly interstitial fibrosis and bronchiectasis at the lung bases
3). Minimal left pleural effusion
PET/CT 02/04/20: IMPRESSION:� Pulmonary nodules with minimal FDG activity.� However, despite small size and low level activity, the 6.7 mm index lesion in the right upper lobe has a 25% increase in FDG activity on real-time point imaging. Suspicious
for neoplasm.� No FDG avid adenopathy. Physiologic versus pathologic FDG activity associated with the cecum and ascending colon. Recommend further evaluation/correlation with colonoscopy.� Likely physiologic asymmetric FDG activity associated with
the posterior margin of the left vocal cord. Clinical correlation recommended to exclude the possibility of asymmetric right vocal cord paralysis.
ECHO 08/06/24- Normal biventricular size and systolic function without regional wall motion abnormality. No significant valvular disease. No prior study available for comparison.
Total time spent today was 39 minutes for this encounter. Time includes reviewing laboratory test/imaging results, reviewing pertinent medical records, obtaining and reviewing medical history, performing an appropriate exam, ordering medications,
tests and procedures. Time also includes documentation of this encounter, coordinating patient care and communicating with other healthcare professionals. Total time does not include separately billed tests performed on this date of service.
Subjective Data
-
Date of Service:
Date of Service: November 21, 2024
Chief Complaint: Pulmonary Follow Up
Subjective:
Patient seen today at bedside (late note entry). Patient's daughter, Mirella, present at bedside. Patient says she feels good today. She is saturating 96% on 4 L/min. She denies chest pain, SOB, nausea, fevers or chills. She does not remember
yesterday, but according to the nurse the patient had choked on her food while she was eating soup.
Review of Systems
General: Other (Negative unless mentioned above)
Objective Data
Data Reviewed
Vital Signs / I&O / Oxygen:
Vital Signs
Temp Pulse Resp BP Pulse Ox
97.6 F 94 22 110/61 91
11/20/24 23:00 11/21/24 08:18 11/21/24 08:18 11/21/24 06:00 11/21/24 08:18
Intake and Output
11/20/24 11/21/24 11/22/24
06:59 06:59 06:59
Intake Total 480 / 480
Output Total 550 / 550 450 / 450
Balance -70 / -70 -450 / -450
SaO2 91
Nasal Cannula flow liters per 4
minute
Physical Exam
General: Respiratory Distress (negative), Comfortable, Chills (negative) and Sweats (negative)
HEENT: Normocephalic and Anicteric
Cardiovascular: S1-S2 and Peripheral Edema (negative)
Respiratory: Wheeze (negative), Crackles (negative), Rhonchi (negative), Non-Labored Respirations and Other (Bronchial breath sounds heard on the right hemithorax)
GI: Soft, Non Distended, Non Tender and Normal Bowel Sounds
Neurology: Awake, Alert, Tremors (negative) and Other (Confused at times)
Skin: Warm, Dry, Cyanosis (negative) and Jaundice (negative)
Labs/Micro/Reports
Lab Data
11/21/24 05:29
11/21/24 05:29
Microbiology
11/19/24 15:37 Nose MRSA Screen - Final
No Methicillin Resistant Staphylococcus aureus isolated.
11/19/24 11:13 Nasal Swab Influenza Types A & B (BRI) - Final
Negative for Influenza A & B, NAAT
Negative results must be combined with clinical observations
and patient history.
Nucleic Acid Amplification test (NAAT)performed on the
[employer] platform.
[2024-11-21] MEDS: ATIVAN 0.25 MG PO (17:24)
[2024-11-21 23:00] VITALS: BP 105/57
[2024-11-22] VITALS (7 sets, daily range): BP systolic 104–150; BP diastolic 53–91; PULSE 95; O2SAT 97
[2024-11-22] MEDS: DECADRON 4 MG IV ×3 (01:42→21:20)
[2024-11-22] MEDS: PULMICORT 0.5 MG INH ×2 (07:15→19:26)
[2024-11-22] MEDS: DUONEB 3 ML INH ×4 (07:15→19:26)
--- NOTE | 2024-11-22 07:15 | PTCARENOTE ---
No acute changes overnight. Up ad laine to BSC. 4-5L NC in place. SHAW. Protective foams to sacrum and heels for protection. turns self while in bed. denies any pain. Call whiteside within reach. Bed alarm set for safety.
[2024-11-22] MEDS: HEPARIN 2500 UNITS SC ×2 (07:45→21:20)
[2024-11-22] MEDS: MUCINEX 600 MG PO ×2 (07:45→21:20)
[2024-11-22] MEDS: VIBRAMYCIN 100 MG PO ×2 (07:45→21:20)
--- NOTE | 2024-11-22 08:29 | PTCARENOTE ---
Patient received from shift lab technician. Patient resting comfortably in bed, just used the bedside commode. AAO, VSS. Med/Surg level, awaiting bed. No events noted overnight. No complaints of pain at this time. Currently on 5L N/C, will wean as
applicable. No testing scheduled at this time. Call whiteside in reach.
--- NOTE | 2024-11-22 11:11 | W.PN.PUL3 ---
Today's Communication / Plan
-
Continue IV Decadron-hopefully transition to prednisone tomorrow
Continue nebulized therapy-would continue until seen in our office. Hold inhalers.
Acapella device
5 days of doxycycline will continue
Wean down FiO2 as able-currently 4 L.(Usually on 2 L supplemental oxygen at home)
Physical therapy/Occupational Therapy-continue as tolerated
Hopefully patient can be transferred back to [facility] tomorrow 11/23/2024.
Assessment
-
79-year-old former smoking female with a history of COPD/restrictive lung disease, traction bronchiectasis and pulmonary nodules recently discharged for admission due to CO2 retention and hypoxemia now readmitted with shortness of breath and
pulmonary consulted for COPD exacerbation 11/19/2024
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
Anemia
Conditions present prior to admission:
Recent hospitalization-discharge 11/10/2024 with confusion with recommendation of neuropsychiatric outpatient workup, pulmonary recommended palliative care to the family
Severe Left lower lobe pneumonia s/p bronchoscopy 08/12/24 mostly lee (mucus plugging/poor airway clearance)
R hip fractures s/p cemented bipolar endoprosthesis 02/23/24 s/p mechanical fall
Multiple lung nodules, measuring 3-5mm
s/p Bronchoscopy results 06/12/20: No endobronchial lesions. BAL was performed in both lower lobes and right upper lobe/AFB neg
COPD, severe-3 L oxygen at rest and 6 L with activity
Followed by Dr Melo as OP
PFT - FEV1 was 1.26 L or 59% of predicted and previously was 1.50 L or 74% predicted
Cylindrical bronchiectasis RML and lingula
Fibrosis noted on CT, new/progressed
History of tobacco abuse/65-ogbg-ccan smoking history. Quit around 2009.
Multiple pulmonary nodules..
Mucus plugging
History of pleural effusion
Interstitial lung disease
Rheumatoid arthritis w/ Immunosuppressed status .
Hypothyroid
History of breast cancer s/p Left lumpectomy and axillary node dissection for stage I left breast carcinoma (1993, radiation/no chemo)
Plan
Patient admitted to hospital with COPD flare-suspected still recovering from prior admission. Recurrent exacerbation of COPD.
Continue supplemental O2, weaning down as tolerated while keeping SpO2 88-95%-currently on 4 L nasal cannula. Improved.
She reports that she is on 2-4 L/min nasal cannula at home
-
Patient is a DNR/DNI
Decadron 4 milligrams IV every 12 since 11/22/2024-hopefully transition to prednisone in the next 24 hours. 40 mg orally and decrease by 10 mg every 72 hours to off.
Nebulizers- Duo nebs + budesonide ( Usually on Breztri)-would continue nebulized therapy until seen in our office.
Aspiration precautions.
Mucolytics with Mucinex 600 mg PO q12hr
Mucus clearing devices if needed.
Vest therapy if needed-has history of bronchiectasis
MRSA screening negative
Influenza negative
Sputum culture if patient can produce a decent sample
MRSA swab is negative
Currently on doxycycline to cover a URI/atypicals especially given her COPD exacerbation-complete 5 to 7 days.
Had a mechanical fall, but no reported injuries.
Continue fall precautions
Hyperkalemia resolved.
DVT prophylaxis - HSQ
GI prophylaxis - Not indicated
-
Recommend HOSPICE CARE CONSULTANT eval; she does have a history of mild oral/pharyngeal dysphagia per prior HOSPICE CARE CONSULTANT evaluation in July 2024
Continue physical/occupational therapy-came from subacute rehabilitation.
Dr. Molina reviewed with at the bedside 11/19/24
Outpatient follow-up with Dr. Melo-Last seen 11/01/24 and has an appointment 12/02/24 at 11 AM
Pulmonary service will continue to follow along
Diagnostic data:
Chest x-ray 11/19/2024-interstitial lung disease/fibrosis, mild cardiomegaly
CXR 11/08/24- There is slightly increased interstitial and bibasilar opacities which may be secondary to multifocal pneumonia or superimposed edema in the setting of extensive chronic lung change.
CXR 08/15/24- Right PICC tip in the mid third of the superior vena cava. No pneumothorax. No other significant interval change.
Chest x-ray 08/13/24- Persistent left lung pneumonia, with improved aeration at the left lung base. Subtle air-fluid levels are noted superimposed on the left mid to lower lung zone, consistent with parenchymal cavities, possibly related to
necrotizing pneumonia. Mild thickening along the left major fissure, which could represent inflammatory reaction or fluid.
CT Chest 11/08/24- 1. There are findings of chronic interstitial/fibrotic lung disease with increased nodular consolidations with surrounding groundglass opacities in the right middle and lower lobes which likely represents pneumonia. 2. Similar
appearance of the cystic and nodular opacities within the left lower lobe which may be sequelae of prior cavitary pneumonia/pulmonary abscess.
CT CHEST 08/06/2024: There is increased extensive consolidation throughout the left lower lobe as well as nodular opacities in the right lower lobe consistent with worsening multifocal pneumonia. There are multiple gas containing foci within the
left lower lobe which appears slightly increased from prior and likely represent an element of cavitary pneumonia. Additionally there is a 4.7 x 3.1 cm and a 3.4 x 2.3 cm gas and fluid containing focus within the left lower lobe which are suspicious
for pulmonary abscesses.
CT CHEST 01/2024: 1.). The stability of the multiple bilateral pulmonary nodules dating back to 08/11/2020 suggests that they are benign
2). COPD with worsening predominantly interstitial fibrosis and bronchiectasis at the lung bases
3). Minimal left pleural effusion
PET/CT 02/04/20: IMPRESSION:� Pulmonary nodules with minimal FDG activity.� However, despite small size and low level activity, the 6.7 mm index lesion in the right upper lobe has a 25% increase in FDG activity on real-time point imaging. Suspicious
for neoplasm.� No FDG avid adenopathy. Physiologic versus pathologic FDG activity associated with the cecum and ascending colon. Recommend further evaluation/correlation with colonoscopy.� Likely physiologic asymmetric FDG activity associated with
the posterior margin of the left vocal cord. Clinical correlation recommended to exclude the possibility of asymmetric right vocal cord paralysis.
ECHO 08/06/24- Normal biventricular size and systolic function without regional wall motion abnormality. No significant valvular disease. No prior study available for comparison.
Subjective Data
-
Date of Service:
Date of Service: November 22, 2024
Chief Complaint: Pulmonary Follow Up (Acute exacerbation of COPD)
Review of Systems
General: Fever (n)
Cardiopulmonary: Dyspnea, Dyspnea on Exertion and Cough
Objective Data
Data Reviewed
Vital Signs / I&O / Oxygen:
Vital Signs
Temp Pulse Resp BP Pulse Ox
97.9 F 89 20 122/75 99
11/22/24 07:50 11/22/24 07:18 11/22/24 07:18 11/22/24 07:52 11/22/24 08:26
Intake and Output
11/21/24 11/22/24 11/23/24
06:59 06:59 06:59
Output Total 450 / 450
Balance -450 / -450
SaO2 99
Nasal Cannula flow liters per 5
minute
Physical Exam
General: Respiratory Distress (negative), Comfortable, Chills (negative) and Sweats (negative)
HEENT: Normocephalic and Anicteric
Cardiovascular: S1-S2 and Peripheral Edema (negative)
Respiratory: Wheeze (negative), Crackles (negative), Rhonchi (negative), Non-Labored Respirations and Other (Bronchial breath sounds heard on the right hemithorax)
GI: Soft, Non Distended, Non Tender and Normal Bowel Sounds
Neurology: Awake, Alert, Tremors (negative) and Other (Confused at times)
Skin: Warm, Dry, Cyanosis (negative) and Jaundice (negative)
Labs/Micro/Reports
Lab Data
11/21/24 05:29
11/21/24 12:38
Microbiology
11/19/24 15:37 Nose MRSA Screen - Final
No Methicillin Resistant Staphylococcus aureus isolated.
11/19/24 11:13 Nasal Swab Influenza Types A & B (BRI) - Final
Negative for Influenza A & B, NAAT
Negative results must be combined with clinical observations
and patient history.
Nucleic Acid Amplification test (NAAT)performed on the
[employer] platform.
--- NOTE | 2024-11-22 11:47 | CM ---
Addendum entered by Vivi Palacios RN 11/22/24 14:55:
Messages from Meli Coffey; the daughter is not holding the bed, but will acceptt her back. Call tomorrow for bed availability.
Plan probable [facility] tomorrow.
Original Note:
Patient from [facility] with Dx COPD flare, recent mechanical fall at SNF. O2 4L midflow. Receiving IV Decadron, PO Abx. PT/OT 11/20; requires assist of 2, recommend skilled rehab. Per nurse; confused, forgetful.
Met with Dr Sanders; patient will most likely be ready for d/c to SNF tomorrow.
Spoke with Meli Coffey; the patient was there for STR and bed hold not decided yet by daughter. They will be able to accept the patient back to complete rehab. If daughter decides to hold the bed, the bed can be held for probable d/c
tomorrow. If daughter doesn't hold the bed, then bed will be given to her when available. Will need NPIS for insurance auth with [employer].
Spoke with Nurse Radha Vargas [facility];
the patient was confused, required assist of 1 for ADLs and was ambulatory with a RW. The patient was able to feed herself.
She was participating with PT/OT. She was a fall risk as she would impulsively/suddenly get up on her own.
Patient was on 3-4L O2.
She was receiving Ativan prn anxiety.
Met with patient and daughter Mirella; both agree with the patient returning to [facility] for rehab.
Spoke with Keila Erickson; advance notification will ask for assist with insurance auth tomorrow if [facility] has available bed.
Plan follow up with Radha Krause re; bed hold.
Plan probable [facility] SNF tomorrow.
[2024-11-22] MEDS: TYLENOL 650 MG PO (12:47)
--- NOTE | 2024-11-22 14:40 | W.PN.HOSP.TC ---
Today's Communication/Plan
-
continue IV steroids/nebs/doxy
likely dc in 24 hours to SNF
Assessment / Plan
Assessment / Plan
Assessment:
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
Cylindrical bronchiectasis RML and lingula
Pulm fibrosis
History of tobacco abuse/35-yhtx-hjaw smoking history. Quit around 2009.
- continue IV steroids, wean to orals as able
- complete 5 day doxycycline course
- continue nebs+budesonide
- mucolytics/vest therapy
Chronic hypoxemic respiratory failure on 2-4 LPM
Hyperkalemia - resolved
Mechanical fall
- PT/OT - SNF
Anemia
Recent hospitalization-discharge 11/10/2024 with confusion with recommendation of neuropsychiatric outpatient workup, pulmonary recommended palliative care to the family
Severe Left lower lobe pneumonia s/p bronchoscopy 08/12/24 mostly lee (mucus plugging/poor airway clearance)
R hip fractures s/p cemented bipolar endoprosthesis 02/23/24 s/p mechanical fall
Multiple lung nodules, measuring 3-5mm in both lower lobes and right upper lobe/AFB neg
Mucus plugging
History of pleural effusion
Interstitial lung disease
Rheumatoid arthritis w/Immunosuppressed status
- on Plaquenil
Depression/anxiety
- continue Lexapro
Hypothyroidism - continue replacement
History of breast cancer s/p Left lumpectomy and axillary node dissection for stage I left breast carcinoma (1993, radiation/no chemo)
DVT ppx: Lovenox
Code: DNR/DNI
Anticipated Discharge: Within 24 hours
Subjective/Interval History
-
Date of Service: November 22, 2024
resting comfortably, denies SOB
Objective Data
-
Vital Signs:
Vital Signs
Temp Pulse Resp BP Pulse Ox
97.9 F 90 20 122/75 99
11/22/24 07:50 11/22/24 11:26 11/22/24 11:26 11/22/24 07:52 11/22/24 11:26
I&O
11/21/24 11/22/24 11/23/24
06:59 06:59 06:59
Output Total 450 / 450
Balance -450 / -450
Physical Exam
-
General: No Apparent Distress
HEENT: Normocephalic and Atraumatic
Respiratory: Decreased Breath Sounds
Cardiac: Regular Rhythm and S1/S2
Neuro: AO x 3
Psych: Calm
Data Reviewed
-
Total Time Spent with Patient (in minutes): 42
Labs: Labs Reviewed by me
[2024-11-22] MEDS: ATIVAN 0.25 MG PO ×2 (15:00→22:47)
[2024-11-22] MEDS: TUMS CHEWABLE TABLET 200 MG PO (23:46)
[2024-11-23] VITALS (8 sets, daily range): BP systolic 138–151; BP diastolic 66–74; PULSE 95; O2SAT 98
[2024-11-23] MEDS: SYNTHROID 50 MCG PO (04:12)
[2024-11-23 04:56] LABS: Hematocrit 29.1 % (37.0-47.0); Hemoglobin 9.2 g/dL (12.0-16.0); Mean Corp Hgb Conc. 31.6 g/dL (33.0-37.0); Mean Corpuscular Volume 100.7 fL (81.0-99.0); Platelet Count 413 10^3/uL (130-400); Red Cell Dist. Width 13.1 % (11.5-14.5)
[2024-11-23 05:24] LABS: Blood Urea Nitrogen 53 mg/dl (7-17); Calcium 10.2 mg/dl (8.4-10.2); Carbon Dioxide 32 mmol/L (22-30); Chloride 97 mmol/L (98-107); Estimated Creatinine Clearance 32 ml/min; Glucose 102 mg/dl (70-99); Potassium 5.9 mmol/L (3.5-5.1); Sodium 133 mmol/L (135-145); eGFR > 60.00
[2024-11-23] MEDS: PULMICORT 0.5 MG INH ×2 (07:30→19:34)
[2024-11-23] MEDS: DUONEB 3 ML INH ×4 (07:30→19:34)
[2024-11-23] MEDS: MUCINEX 600 MG PO ×2 (07:52→20:23)
[2024-11-23] MEDS: VIBRAMYCIN 100 MG PO ×2 (07:52→20:23)
[2024-11-23] MEDS: HEPARIN 2500 UNITS SC ×2 (07:52→20:23)
[2024-11-23] MEDS: DECADRON 4 MG IV (07:52)
[2024-11-23] MEDS: TUMS CHEWABLE TABLET 200 MG PO (09:17)
[2024-11-23] MEDS: DEXTROSE 50% SYRINGE IV (09:31)
--- NOTE | 2024-11-23 09:35 | PTCARENOTE ---
Patient received from night worker. Patient resting comfortably in bed, just used the bedside commode. AAO, VSS. Med/Surg level, awaiting bed. No events noted overnight. No complaints of pain at this time. Currently on 2L N/C. No testing
scheduled at this time. [place] discharge possibly pushed to 11/24 due to hyperkalmia in AM labs. Call [facility] in reach.
[2024-11-23 09:40] LABS: Glucose - Point of Care 292 mg/dl (70-99)
[2024-11-23] MEDS: NOVOLIN R IV (09:51)
[2024-11-23] MEDS: LOKELMA 10 GRAM PO (09:52)
[2024-11-23] MEDS: DELTASONE PO (10:09)
[2024-11-23] MEDS: DEXTROSE 50% SYRINGE 25 GRAMS IV (10:38)
[2024-11-23] MEDS: NOVOLIN R 0.1 UNITS IV (10:39)
[2024-11-23 10:49] LABS: Glucose - Point of Care 157 mg/dl (70-99)
--- NOTE | 2024-11-23 11:03 | W.PN.PUL3 ---
Today's Communication / Plan
-
Continue nebulizer regimen at discharge until seen in the office. Hold inhalers
Prednisone taper
Continue mucolytics
Continue Acapella device
Oxygen therapy-current baseline
Discharge planning today to a assisted facility.
Sign off
Outpatient pulmonary follow-up
Assessment
-
79-year-old former smoking female with a history of COPD/restrictive lung disease, traction bronchiectasis and pulmonary nodules recently discharged for admission due to CO2 retention and hypoxemia now readmitted with shortness of breath and
pulmonary consulted for COPD exacerbation 11/19/2024
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
Anemia
Conditions present prior to admission:
Recent hospitalization-discharge 11/10/2024 with confusion with recommendation of neuropsychiatric outpatient workup, pulmonary recommended palliative care to the family
Severe Left lower lobe pneumonia s/p bronchoscopy 08/12/24 mostly lee (mucus plugging/poor airway clearance)
R hip fractures s/p cemented bipolar endoprosthesis 02/23/24 s/p mechanical fall
Multiple lung nodules, measuring 3-5mm
s/p Bronchoscopy results 06/12/20: No endobronchial lesions. BAL was performed in both lower lobes and right upper lobe/AFB neg
COPD, severe-3 L oxygen at rest and 6 L with activity
Followed by Dr Melo as OP
PFT - FEV1 was 1.26 L or 59% of predicted and previously was 1.50 L or 74% predicted
Cylindrical bronchiectasis RML and lingula
Fibrosis noted on CT, new/progressed
History of tobacco abuse/87-legj-jrcn smoking history. Quit around 2009.
Multiple pulmonary nodules..
Mucus plugging
History of pleural effusion
Interstitial lung disease
Rheumatoid arthritis w/ Immunosuppressed status .
Hypothyroid
History of breast cancer s/p Left lumpectomy and axillary node dissection for stage I left breast carcinoma (1993, radiation/no chemo)
Plan
Patient admitted to hospital with COPD flare-suspected still recovering from prior admission. Suspect recurrent exacerbation of COPD.
Continue supplemental O2, weaning down as tolerated while keeping SpO2 88-95%-currently on 2-4 L nasal cannula. Currently at baseline.
She reports that she is on 2-4 L/min nasal cannula at home
-
Patient is a DNR/DNI
Transitioned to prednisone 11/23/2024 decrease by 10 mg every 72 hours to off.
Nebulizers- Duo nebs + budesonide ( Usually on Breztri)-would continue nebulized therapy until seen in our office.
Aspiration precautions.
Mucolytics with Mucinex 600 mg PO q12hr
Acapella device continuous. Encouraged. Patient to have bronchiectasis.
MRSA screening negative
Influenza negative
Sputum culture if patient can produce a decent sample
MRSA swab is negative
Currently on doxycycline to cover a URI/atypicals especially given her COPD exacerbation-complete 5 to 7 days.
Had a mechanical fall, but no reported injuries.
Continue fall precautions
Hyperkalemia resolved.
DVT prophylaxis - HSQ
GI prophylaxis - Not indicated
-
Recommend ACQUISITION PROFESSIONAL eval; she does have a history of mild oral/pharyngeal dysphagia per prior ACQUISITION PROFESSIONAL evaluation in July 2024
Continue physical/occupational therapy-came from subacute rehabilitation.
Dr. Molina reviewed with at the bedside 11/19/24
Outpatient follow-up with Dr. Melo-Last seen 11/01/24 and has an appointment 12/02/24 at 11 AM
Okay to discharge back to assisted facility from my perspective.
Sign off.

Diagnostic data:
Chest x-ray 11/19/2024-interstitial lung disease/fibrosis, mild cardiomegaly
CXR 11/08/24- There is slightly increased interstitial and bibasilar opacities which may be secondary to multifocal pneumonia or superimposed edema in the setting of extensive chronic lung change.
CXR 08/15/24- Right PICC tip in the mid third of the superior vena cava. No pneumothorax. No other significant interval change.
Chest x-ray 08/13/24- Persistent left lung pneumonia, with improved aeration at the left lung base. Subtle air-fluid levels are noted superimposed on the left mid to lower lung zone, consistent with parenchymal cavities, possibly related to
necrotizing pneumonia. Mild thickening along the left major fissure, which could represent inflammatory reaction or fluid.
CT Chest 11/08/24- 1. There are findings of chronic interstitial/fibrotic lung disease with increased nodular consolidations with surrounding groundglass opacities in the right middle and lower lobes which likely represents pneumonia. 2. Similar
appearance of the cystic and nodular opacities within the left lower lobe which may be sequelae of prior cavitary pneumonia/pulmonary abscess.
CT CHEST 08/06/2024: There is increased extensive consolidation throughout the left lower lobe as well as nodular opacities in the right lower lobe consistent with worsening multifocal pneumonia. There are multiple gas containing foci within the
left lower lobe which appears slightly increased from prior and likely represent an element of cavitary pneumonia. Additionally there is a 4.7 x 3.1 cm and a 3.4 x 2.3 cm gas and fluid containing focus within the left lower lobe which are suspicious
for pulmonary abscesses.
CT CHEST 01/2024: 1.). The stability of the multiple bilateral pulmonary nodules dating back to 08/11/2020 suggests that they are benign
2). COPD with worsening predominantly interstitial fibrosis and bronchiectasis at the lung bases
3). Minimal left pleural effusion
PET/CT 02/04/20: IMPRESSION:� Pulmonary nodules with minimal FDG activity.� However, despite small size and low level activity, the 6.7 mm index lesion in the right upper lobe has a 25% increase in FDG activity on real-time point imaging. Suspicious
for neoplasm.� No FDG avid adenopathy. Physiologic versus pathologic FDG activity associated with the cecum and ascending colon. Recommend further evaluation/correlation with colonoscopy.� Likely physiologic asymmetric FDG activity associated with
the posterior margin of the left vocal cord. Clinical correlation recommended to exclude the possibility of asymmetric right vocal cord paralysis.
ECHO 08/06/24- Normal biventricular size and systolic function without regional wall motion abnormality. No significant valvular disease. No prior study available for comparison.
Subjective Data
-
Date of Service:
Date of Service: November 23, 2024
Chief Complaint: Pulmonary Follow Up (Acute exacerbation of COPD)
Subjective:
Continues to feel better
Denies hemoptysis
Denies worsening phlegm production
Review of Systems
Cardiopulmonary: Dyspnea (Improved) and Dyspnea on Exertion (Improved)
Objective Data
Data Reviewed
Vital Signs / I&O / Oxygen:
Vital Signs
Temp Pulse Resp BP Pulse Ox
97.9 F 87 18 151/69 94
11/23/24 07:24 11/23/24 07:30 11/23/24 07:30 11/23/24 08:00 11/23/24 07:30
Intake and Output
11/22/24 11/23/24 11/24/24
06:59 06:59 06:59
Intake Total 480 / 480
Output Total 450 / 450
Balance -450 / -450 480 / 480
SaO2 94
Nasal Cannula flow liters per 2
minute
Physical Exam
General: Respiratory Distress (negative), Comfortable, Chills (negative) and Sweats (negative)
HEENT: Normocephalic and Anicteric
Cardiovascular: S1-S2 and Peripheral Edema (negative)
Respiratory: Wheeze (negative), Crackles (negative), Rhonchi (negative), Non-Labored Respirations and Other (Bronchial breath sounds heard on the right hemithorax)
GI: Soft, Non Distended, Non Tender and Normal Bowel Sounds
Neurology: Awake, Alert, Tremors (negative) and Other (Confused at times)
Skin: Warm, Dry, Cyanosis (negative) and Jaundice (negative)
Labs/Micro/Reports
Lab Data
11/23/24 04:10
Microbiology
11/19/24 15:37 Nose MRSA Screen - Final
No Methicillin Resistant Staphylococcus aureus isolated.
--- NOTE | 2024-11-23 11:12 | CM ---
Addendum entered by Berenice Wilkersonang Lund 11/23/24 14:55:
Nurse to Nurse Report # [phone]

Addendum entered by Berenice Borrero [facility] 11/23/24 14:27:
Insurance and ambulance auths obtained:
SNF: Approved for 6 days 11/24/24 through to and including 11/29/24. LCD and NRD is 11/29/24. Reference # [id number]. Call updates to [phone].
AMBULANCE: Reference # [id number]
Transport scheduled for 11/24/24 @ 1:00PM
Addendum entered by Berenice Torrezmj [facility] 11/23/24 12:31:
Need new auth for discharge to [facility] on 11/24/24. PT/OT notified for updated evals.
Addendum entered by [facility] 11/23/24 12:08:
Ambulance transport scheduled for 11/24/24 @ 1:00PM.
Original Note:
Patient is for discharge to [facility] on 11/24/24. Attending plans on managing Potassium levels today. [facility], Patient, and RN notified.
[2024-11-23 12:01] LABS: Glucose - Point of Care 157 mg/dl (70-99)
[2024-11-23 13:07] LABS: Glucose - Point of Care 78 mg/dl (70-99)
--- NOTE | 2024-11-23 13:54 | W.PN.HOSP.TC ---
Today's Communication/Plan
-
repeat BMP 2pm
Assessment / Plan
Assessment / Plan
Assessment:
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
Cylindrical bronchiectasis RML and lingula
Pulm fibrosis
History of tobacco abuse/85-ljim-fmlw smoking history. Quit around 2009.
- s/p IV steroids course
- continue oral steroid course
- complete 5 day doxycycline course
- continue nebs+budesonide
- mucolytics/vest therapy
- pulmonary signed off
Chronic hypoxemic respiratory failure on 2-4 LPM
acute Hyperkalemia
- transient.
- K 5.9
- s/p Lokelma, Insulin/dextrose
- repeat BMP 2pm
Mechanical fall
- PT/OT - SNF
Anemia
Recent hospitalization-discharge 11/10/2024 with confusion with recommendation of neuropsychiatric outpatient workup, pulmonary recommended palliative care to the family
Severe Left lower lobe pneumonia s/p bronchoscopy 08/12/24 mostly lee (mucus plugging/poor airway clearance)
R hip fractures s/p cemented bipolar endoprosthesis 02/23/24 s/p mechanical fall
Multiple lung nodules, measuring 3-5mm in both lower lobes and right upper lobe/AFB neg
Mucus plugging
History of pleural effusion
Interstitial lung disease
Rheumatoid arthritis w/Immunosuppressed status
- on Plaquenil
Depression/anxiety
- continue Lexapro
Hypothyroidism - continue replacement
History of breast cancer s/p Left lumpectomy and axillary node dissection for stage I left breast carcinoma (1993, radiation/no chemo)
DVT ppx: Lovenox
Code: DNR/DNI
Anticipated Discharge: Within 24 hours
Subjective/Interval History
-
Date of Service: November 23, 2024
feeling better, no SOB
K 5.9 this AM
Objective Data
-
Labs:
Laboratory Results
11/23/24 11/23/24 11/23/24
04:10 13:00 14:00
WBC 10.3
Hgb 9.2 L
Hct 29.1 L
Plt Count 413 H
Sodium 133 L
Potassium 5.9 H Cancelled Pending
Chloride 97 L
Carbon Dioxide 32 H
BUN 53 H
Creatinine 0.9
Glucose 102 H
Calcium 10.2
Vital Signs:
Vital Signs
Temp Pulse Resp BP Pulse Ox
98.2 F 90 18 151/69 95
11/23/24 11:00 11/23/24 11:19 11/23/24 11:19 11/23/24 08:00 11/23/24 11:19
I&O
11/22/24 11/23/24 11/24/24
06:59 06:59 06:59
Intake Total 480 / 480
Output Total 450 / 450
Balance -450 / -450 480 / 480
Physical Exam
-
General: No Apparent Distress
HEENT: Normocephalic and Atraumatic
Respiratory: Negative Wheezes
Cardiac: Regular Rhythm and S1/S2
GI: Soft and Nontender
Genito-urinary: No Costovertebral Tender
Neuro: AO x 3
Psych: Calm
Data Reviewed
-
Total Time Spent with Patient (in minutes): 45
Labs: Labs Reviewed by me
[2024-11-23 14:03] LABS: Glucose - Point of Care 103 mg/dl (70-99)
[2024-11-23] MEDS: ATIVAN 0.25 MG PO ×2 (14:24→15:33)
[2024-11-23 14:46] LABS: Potassium 5.7 mmol/L (3.5-5.1)
[2024-11-23 15:01] LABS: Glucose - Point of Care 113 mg/dl (70-99)
[2024-11-23] MEDS: LOKELMA 5 GRAM PO (15:33)
[2024-11-23 17:06] LABS: Glucose - Point of Care 107 mg/dl (70-99)
--- NOTE | 2024-11-23 20:37 | PTCARENOTE ---
Addendum entered by Mono Rodriguez RN 11/23/24 22:18:
pt able to void on BSC, UA sent.
Original Note:
Patient having the urge to void but not voiding in BSC. Bladder scan showing >267mL. UA ordered per daughter request. Requested an order for straight cath from [facility]; made aware of situation.
[2024-11-23 21:47] LABS: Blood Urea Nitrogen 47 mg/dl (7-17); Calcium 10.7 mg/dl (8.4-10.2); Carbon Dioxide 37 mmol/L (22-30); Chloride 88 mmol/L (98-107); Estimated Creatinine Clearance 32 ml/min; Glucose 99 mg/dl (70-99); Potassium 5.1 mmol/L (3.5-5.1); Sodium 126 mmol/L (135-145); eGFR > 60.00
[2024-11-23 21:50] LABS: Urine Character Clear (Clear)
[2024-11-23 21:55] LABS: Urine Red Blood Cell 0-2 /HPF (0-2)
[2024-11-24 01:59] LABS: Blood Urea Nitrogen 43 mg/dl (7-17); Calcium 11.4 mg/dl (8.4-10.2); Carbon Dioxide 40 mmol/L (22-30); Chloride 90 mmol/L (98-107); Estimated Creatinine Clearance 32 ml/min; Glucose 84 mg/dl (70-99); Potassium 5.3 mmol/L (3.5-5.1); Sodium 130 mmol/L (135-145); eGFR > 60.00
--- NOTE | 2024-11-24 04:30 | W.PN.UPDATE ---
Update Note
Progress Note Update
RN reports patient difficulty urine, order placed for UA, straight cath in place.
Lab resulted. Na 126, Urine Osm, Urine Na Serum Na ordered. BMP to repeat at 0100
Patient without headache, nausea, fatigue or confusion.
Lab resulted. Na 130 K 5.3.
pending other labs.
[2024-11-24] MEDS: SYNTHROID 50 MCG PO ×2 (05:56→09:33)
[2024-11-24 06:29] LABS: Blood Urea Nitrogen 41 mg/dl (7-17); Calcium 10.7 mg/dl (8.4-10.2); Chloride 89 mmol/L (98-107); Estimated Creatinine Clearance 36 ml/min; Glucose 77 mg/dl (70-99); Potassium 5.4 mmol/L (3.5-5.1); Sodium 130 mmol/L (135-145); eGFR > 60.00
[2024-11-24 06:38] LABS: Carbon Dioxide 38 mmol/L (22-30)
[2024-11-24 07:00] LABS: Cortisol, Random 14.2 ug/dl
[2024-11-24] MEDS: PULMICORT 0.5 MG INH (07:39)
[2024-11-24] MEDS: DUONEB 3 ML INH ×2 (07:39→11:17)
[2024-11-24 08:20] VITALS: BP 114/69
[2024-11-24] MEDS: MUCINEX 600 MG PO (09:32)
[2024-11-24] MEDS: VIBRAMYCIN 100 MG PO (09:32)
[2024-11-24] MEDS: HEPARIN 2500 UNITS SC (09:33)
[2024-11-24] MEDS: DELTASONE 30 MG PO (09:33)
[2024-11-24] MEDS: LOKELMA 10 GRAM PO (09:33)
[2024-11-24] MEDS: ATIVAN 0.25 MG PO (10:20)
--- NOTE | 2024-11-24 11:01 | W.PN.HOSP.TC ---
Addendum entered and electronically signed by Sterling Sanders MD 11/24/24 15:38:
Severe protein calorie malnutrition of chronic illness
Addendum entered and electronically signed by Sterling Sanders MD 11/24/24 11:20:
acute hyponatremia from ADH excess in setting of acute lung pathology (not SIADH)
Also from acute hypothyroidism
- repeat BMP Friday/Friday at [facility]
- continue OFR
- correct hypothyroidism
Original Note:
Today's Communication/Plan
-
dc to SNF
daily Lokelma x 3 days
repeat BMP Friday/Friday
finish steroid taper
Assessment / Plan
Assessment / Plan
Assessment:
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
Cylindrical bronchiectasis RML and lingula
Pulm fibrosis
History of tobacco abuse/43-pjit-boqg smoking history. Quit around 2009.
- s/p IV steroids course
- continue oral steroid course over next 5 days
- completed doxycycline course
- continue nebs+budesonide
- mucolytics/vest therapy
- pulmonary signed off
Chronic hypoxemic respiratory failure on 2-4 LPM
acute Hyperkalemia
- transient suspect from steroids, hypothyroidism
- K 5.4 today
- s/p Lokelma, Insulin/dextrose
- Redose Lokelma daily x 3 days
- repeat BMP Friday and Friday
Mechanical fall
- PT/OT - SNF
Anemia
Recent hospitalization-discharge 11/10/2024 with confusion with recommendation of neuropsychiatric outpatient workup, pulmonary recommended palliative care to the family
Severe Left lower lobe pneumonia s/p bronchoscopy 08/12/24 mostly lee (mucus plugging/poor airway clearance)
R hip fractures s/p cemented bipolar endoprosthesis 02/23/24 s/p mechanical fall
Multiple lung nodules, measuring 3-5mm in both lower lobes and right upper lobe/AFB neg
Mucus plugging
History of pleural effusion
Interstitial lung disease
Rheumatoid arthritis w/Immunosuppressed status
- on Plaquenil
Depression/anxiety
- continue Lexapro
Hypothyroidism - continue Levothyroxine, increase to 100mcg (TSH was 95). Repeat TFTs in 4-6 weeks.
History of breast cancer s/p Left lumpectomy and axillary node dissection for stage I left breast carcinoma (1993, radiation/no chemo)
DVT ppx: Lovenox
Code: DNR/DNI
More than 30 minutes spent in discharge including
Final examination of the patient
Summarizing hospital stay
Instructions for continuing care to all relevant caregivers
Preparation of discharge records, prescriptions, and referral forms
Total time spent (in minutes): 42
Anticipated Discharge: Today
Subjective/Interval History
-
Date of Service: November 24, 2024
no new complaints at present
Objective Data
-
Labs:
Laboratory Results
11/24/24 11/24/24
01:23 05:55
Sodium 130 L 130 L
Potassium 5.3 H 5.4 H
Chloride 90 L 89 L
Carbon Dioxide 40 H 38 H
BUN 43 H 41 H
Creatinine 0.9 0.8
Glucose 84 77
Calcium 11.4 H 10.7 H
Vital Signs:
Vital Signs
Temp Pulse Resp BP Pulse Ox
98 F 93 18 114/69 94
11/24/24 03:09 11/24/24 07:41 11/24/24 07:41 11/24/24 08:20 11/24/24 07:41
I&O
11/23/24 11/24/24 11/25/24
06:59 06:59 06:59
Intake Total 480 / 480 600 / 600
Output Total 1000 / 1000
Balance 480 / 480 -400 / -400
Physical Exam
-
General: No Apparent Distress
HEENT: Normocephalic and Atraumatic
Respiratory: Negative Wheezes
Cardiac: Regular Rhythm and S1/S2
GI: Soft
Genito-urinary: No Costovertebral Tender
Neuro: AO x 3
Psych: Calm
Data Reviewed
-
Total Time Spent with Patient (in minutes): 42
Labs: Labs Reviewed by me
--- NOTE | 2024-11-24 11:04 | CM ---
Patient from [facility] with Dx COPD flare, recent mechanical fall at SNF. O2 2L midlow. Receiving PO Abx. PT/OT; recommend skilled rehab. Per nurse; confused, forgetful.
Spoke with Erlinda, [facility]; they are able to accept the patient today. Erlinda checked with their [employer] [employer] if they could accept due to the cost of Lokelma ----> yes. The ph for report [phone], fax [phone]. Erlinda aware that the
ambulance is scheduled for 1pm.
Met with patient and daughter Mirella; both agree to d/c today to [facility] by ambulance. IMM already completed with prior CM.
Plan [facility] today by ambulance.
--- NOTE | 2024-11-24 11:12 | W.DS.TRANS ---
DC Summary - Public Policy Manager
-
Discharge Instructions:
Discharge Diagnosis/Procedures acute COPD exacerbation, hypothyroidism,
hyperkalemia
Diet Other diet
Additional Diets 2 gram potassium restriction
Activity As tolerated
Blood Work repeat BMP Friday and Friday to follow sodium
and potassium
Other Services PT,OT
Instructions:
Stand-Alone Forms:
Changes to Home Medications: No
Discharge Medications:
DC Medications w/original date entered in [facility]
hydroxychloroquine 200 mg tablet 400 mg PO Q48H@2200 rheumatoid arthritis 04/27/17
Lactobac no.2-Bifidobac no.1-S. thermo 112.5 billion cell capsule (Visbiome) 1 cap PO DAILY probiotic 02/22/24
simvastatin 20 mg tablet 20 mg PO QPM cholesterol 02/22/24
therapeutic multivitamin 1 tab PO DAILY Supplement 02/22/24
famotidine 20 mg tablet 20 mg PO DAILY Gastrointestinal issue #0 tabs 08/17/24
diphenhydramine 25 mg-acetaminophen 500 mg tablet (Tylenol PM Extra Strength) 1 tab PO HSPRN PRN sleep 11/08/24
hydroxychloroquine 200 mg tablet 200 mg PO Q48H@2200 Antirheumatic 11/08/24
bisacodyl 10 mg rectal suppository (Dulcolax (bisacodyl)) 10 mg OR DAILYPRN PRN IF NO BM AFTER MOM GIVE ON DAY 5 11/19/24
calcium polycarbophil 625 mg tablet (FiberCon) 625 mg PO DAILY Constipation 11/19/24
escitalopram oxalate 20 mg tablet (Lexapro) 20 mg PO DAILY Mental Health 11/19/24
ipratropium 0.5 mg-albuterol 3 mg (2.5 mg base)/3 mL nebulization soln 3 ml inhalation R Q6HPRN PRN SOB 11/19/24
magnesium hydroxide 400 mg/5 mL oral suspension (Milk of Magnesia) 2,400 mg PO [id number] PRN IF NO BM BY 3RD DAY GIVE ON DAY 4 11/19/24
mirtazapine 7.5 mg tablet 7.5 mg PO HS Mental Health/Anxiety 11/19/24
sodium phosphates 19 gram-7 gram/118 mL enema (Fleet Enema) 118 ml OR DAILYPRN PRN IF NO BM AFTR DULCOLAX GIVE ON DAY 6 11/19/24
budesonide 0.5 mg/2 mL suspension for nebulization 0.5 mg (2 mL) inhalation R BID #60 mL 11/24/24
guaifenesin 600 mg tablet, extended release 12 hr 600 mg PO Q12 #20 tabs 11/24/24
ipratropium 0.5 mg-albuterol 3 mg (2.5 mg base)/3 mL nebulization soln 3 ml inhalation TID Lung/Breathing Issues #90 mL 11/24/24
levothyroxine 100 mcg tablet 100 mcg PO DAILY @ 0600 #30 tabs 11/24/24
lorazepam 0.5 mg tablet 0.25 mg (1/2 x 0.5 mg) PO TIDPRN PRN anxiety #6 tabs 11/24/24
prednisone 10 mg tablet 10 mg PO DIRECTED #9 tabs 11/24/24
Home Medication Changes
Pending Results: No
Total time spent discharging patient (in min): 42
[2024-11-24 12:14] VITALS: BP 139/84
--- NOTE | 2024-11-24 15:06 | PN.CDI ---
CDI
- -
CDI:
Physician Documentation Request
Admit Date: 11/19/24 10:45
Dear Doctor Marilyn,
Please review the following and provide your response in the progress notes.
Clinical Indicators:
Child Life Therapist, 11/22
#Current BW: (11/21) 87 lbs 8.376 oz BMI: 15.0 (underweight);
#...(11/19) 87 bs 11.904 oz BMI: 15.1 (underweight). Weight history (08/02/24) 91 lbs.
#...This is a 3.4% BW loss over 3 months.
#...meets AND and ASPEN criteria for severe protein calorie malnutrition
#...of chronic disease due to fat and muscle loss in the areas of her clavicle
#...and her triceps.
Based on the above and your clinical assessment, please clarify the patient's nutritional status:
Severe protein calorie malnutrition of chronic illness
Other (please specify)
[place] Criteria (ACP Hospitalist 2017)
2 or more criteria must be present for either
non severe or severe malnutrition
Note that the criteria differs related to the
presence of an acute or chronic illness
Chronic Illness
Energy Intake Non Severe: <75% for >1 month
Severe: <75% for >1 month
Weight Loss Non Severe: 5% over 1 month
7.5% over 3 months
10% over 6 months
20% over 1 year
Severe: >5% over 1 month
>7.5% over 3 months
>10% over 6 months
>20% over 1 year
Body Fat Non Severe: Mild Loss
Severe: Severe Loss
Muscle Mass Non Severe: Mild Loss
Severe: Severe Loss
Use of terms such as suspected, likely, concern for, or probable (associated with a specific diagnosis that is being evaluated, monitored, or treated as if it exists) are acceptable and can be coded in the inpatient setting, when documented at the
time of discharge.
Thank you,
Talita Portillo RN BSN CCDS
CDI Specialist
Please contact via tiger text
Please use your independent medical judgment in providing your response.
== END 2024-11-24 13:11 | DRG 196 ==
LOC: IMU 10:45
PROVIDERS: Internal Medicine Critical Care Medicine; Nurse Practitioner Family; Nurse Practitioner Gerontology; ADMITTING PHYSICIAN Hospitalist; ATTENDING PHYSICIAN Internal Medicine; CONSULT PHYSICIAN Internal Medicine Critical Care Medicine; EMERGENCY PHYSICIAN Student in an Organized Health Care Education/Training Program; FAMILY PHYSICIAN Family Medicine
DX: J84.10 Pulmonary fibrosis, unspecified (principal); E43 Unspecified severe protein-calorie malnutrition; J96.21 Acute and chronic respiratory failure with hypoxia; J44.1 Chronic obstructive pulmonary disease with (acute) exacerbation; D84.9 Immunodeficiency, unspecified; E87.1 Hypo-osmolality and hyponatremia; Z68.1 Body mass index [BMI] 19.9 or less, adult; J47.1 Bronchiectasis with (acute) exacerbation; E03.9 Hypothyroidism, unspecified; E87.5 Hyperkalemia; J98.4 Other disorders of lung; M06.9 Rheumatoid arthritis, unspecified; F32.A Depression, unspecified; F41.9 Anxiety disorder, unspecified; Z66 Do not resuscitate; E78.00 Pure hypercholesterolemia, unspecified; I10 Essential (primary) hypertension; D64.9 Anemia, unspecified; R39.198 Other difficulties with micturition; T38.0X5A Adverse effect of glucocorticoids and synthetic analogues, initial encounter; Z85.3 Personal history of malignant neoplasm of breast; Z87.891 Personal history of nicotine dependence; Z87.01 Personal history of pneumonia (recurrent)
CPT/HCPCS: 36415; 71045; 80048; 80053; 81003; 81015; 82533; 82962; 83880; 83935; 84132; 84300; 84439; 84443; 84484; 85025; 85027; 87070; 87086; 87502; 92610; 93005; 94640; 96374; 97116; 97163; 97167; 97530; 97535; 99291

== ENCOUNTER → 2024-11-29 09:22 | Outpatient (REF) | payer OTHER, SELFPAY ==
[2024-11-29 12:11] LABS: Hematocrit 28.6 % (37.0-47.0); Hemoglobin 8.7 g/dL (12.0-16.0); Mean Corp Hgb Conc. 30.4 g/dL (33.0-37.0); Mean Corpuscular Volume 104.8 fL (81.0-99.0); Platelet Count 366 10^3/uL (130-400); Red Cell Dist. Width 13.4 % (11.5-14.5)
[2024-11-29 12:35] LABS: Blood Urea Nitrogen 39 mg/dl (7-17); Calcium 8.9 mg/dl (8.4-10.2); Carbon Dioxide 34 mmol/L (22-30); Chloride 102 mmol/L (98-107); Glucose 74 mg/dl (70-99); Potassium 4.4 mmol/L (3.5-5.1); Sodium 137 mmol/L (135-145); eGFR 57.66
== END ==
LOC: OLABP 09:22
PROVIDERS: ATTENDING PHYSICIAN Family Medicine
DX: E78.5 Hyperlipidemia, unspecified (principal); D64.9 Anemia, unspecified; F33.9 Major depressive disorder, recurrent, unspecified; N18.32 Chronic kidney disease, stage 3b; R13.12 Dysphagia, oropharyngeal phase; E87.5 Hyperkalemia; E87.1 Hypo-osmolality and hyponatremia; J84.9 Interstitial pulmonary disease, unspecified; F03.90 Unspecified dementia, unspecified severity, without behavioral disturbance, psychotic disturbance, mood disturbance, and anxiety; F41.9 Anxiety disorder, unspecified; J44.9 Chronic obstructive pulmonary disease, unspecified; I10 Essential (primary) hypertension
CPT/HCPCS: 36415; 80048; 85027

== ENCOUNTER 2024-12-10 15:42 | Inpatient (IN) | payer OTHER, SELFPAY ==
[2024-12-10] VITALS (14 sets, daily range): BP systolic 104–164; BP diastolic 57–89; PULSE 2–115; BMI 17.8; BMI 17.5
--- NOTE | 2024-12-10 10:05 | ED.GENMED ---
History of Present Illness
General
Chief Complaint: Breathing Problem
Source: patient
Exam Limitations: none
Time Seen by Provider: 12/10/24 09:50
History of Present Illness
History of Present Illness:
71-year-old female with history of COPD bronchiectasis interstitial lung disease former smoker presents from [facility] with increased work of breathing. She is chronically on 3 L of oxygen. When the nurse took her vital signs at [facility] they were
noticing hypoxia despite a normal oxygen within work of breathing and they sent her here. She denies chest pain. No recent fever. She denies any pain. No vomiting. No leg swelling. No other complaints
Past History
Past History
ED Past Medical History: Cancer (breast), COPD, HTN, Hypercholesterolemia and Psychiatric
ED Past Surgical History: Other (The patient has had a lumpectomy in the left breast, perforated bowel)
Social History
Tobacco: Former smoker
Alcohol: Former
Personal:
Living: with family
Phy Exam
Physical Exam
Physical Exam:
General: Well-appearing female with increased work of breathing
HEENT: Normocephalic atraumatic
Heart: tachycardic but regular
Lungs: Diminished with wheezing
Extremities: No cyanosis or edema
Scores
Heart Failure Risk
Heart Failure Risk Score: Not Applicable
Course
Orders/Labs/Results
Orders:
Orders
12/10/24 10:03
CR Chest - 2 Views Urgent
Comment:
Reason For Exam: sob
12/10/24 10:04
Dexamethasone Sod Phosphate [Decadron] 10 mg IV NOW STA
Ipratropium/Albuterol Sulfate [Duoneb] 3 ml INH R NOW STA
12/10/24 10:15
Complete Blood Count/With Diff Urgent
Comprehensive Metabolic Panel Urgent
NT-proBNP Urgent
12/10/24 13:40
Piperacillin/Tazo 3.375 Gram [Zosyn] 3.375 gram in 50 ml IV NOW
12/10/24 13:41
Vancomycin 1 Gram/200 ml [Vancocin] 1 gram in 200 ml IV NOW
Abnormal Lab Results
12/10/24
10:15
RBC 2.96 L 10^6/uL
(4.20-5.40)
Hgb 9.4 L g/dL
(12.0-16.0)
Hct 30.7 L %
(37.0-47.0)
MCV 103.7 H fL
(81.0-99.0)
MCH 31.8 H pg
(27.0-31.0)
MCHC 30.6 L g/dL
(33.0-37.0)
Absolute Neuts (auto) 7.6 H 10^3/uL
(1.4-6.5)
Absolute Lymphs (auto) 0.6 L 10^3/uL
(1.2-3.4)
Neutrophils % 85.0 H %
(42.2-75.2)
Lymphocytes % 7.0 L %
(20.5-51.1)
Potassium 5.5 H mmol/L
(3.5-5.1)
Chloride 96 L mmol/L
(98-107)
Carbon Dioxide 35 H mmol/L
(22-30)
BUN 26 H mg/dl
(7-17)
AST 112 H U/L
(14-36)
ALT 81 H U/L
(0-35)
Albumin 3.4 L g/dl
(3.5-5.0)
12/10/24 10:15
12/10/24 10:15
Vital Signs
Initial and Last Documented VS:
Initial Vital Signs
Temp Pulse Resp BP Pulse Ox
98.2 F 110 34 132/72 87
12/10/24 09:57 12/10/24 09:57 12/10/24 09:57 12/10/24 09:57 12/10/24 09:57
Last Documented Vital Signs
Temp Pulse Resp BP Pulse Ox
98.2 F 115 19 141/82 90
12/10/24 09:57 12/10/24 12:00 12/10/24 12:00 12/10/24 12:00 12/10/24 12:00
MDM/Problems Addressed
Differential Diagnosis Includes:
Patient sent over here for hypoxia on baseline oxygen with increased work of breathing. Recent admission for COPD flare. No significant distress on exam. Will try Decadron and DuoNeb. Check labs.
*Pulse Oximetry
SaO2: 98
Nasal Cannula flow liters per minute: 6
Patient hypoxic: no
*Critical Care Note
Total Time (30-74mins, 75-104mins- exclusive of procedures): Not Applicable
Update Note
Update Note:
Chest x-ray shows worsening recurrent pneumonia. Patient is requiring higher oxygen than usual. Will order vancomycin and Zosyn and admit to hospital
ED Attending Note
-
Portions of this chart may have been created with voice recognition software.� Occasional wrong word or��sound alike� substitutions may have occurred due to the inherent limitations of voice recognition software.
Discharge Plan
Departure
Patient Disposition: Admit
Date of Disposition: 12/10/24
Time of Disposition: 13:55
Presentation/result/management discussed w/ accepting MD/DO: Hospitalist
Discharge Problem:
Hypoxia, Pneumonia
Prescriptions:
No Action
hydroxychloroquine 200 MG tablet
400 mg PO Q48H@2200
therapeutic multivitamin Tablet
1 tab PO DAILY
Visbiome 112.5 billion cell Capsule
1 cap PO DAILY
simvastatin 20 MG tablet
20 mg PO QPM
famotidine 20 mg Tablet
20 mg PO DAILY Qty: 0 0RF
hydroxychloroquine 200 mg Tablet
200 mg PO Q48H@2200
diphenhydramine-acetaminophen [Tylenol PM Extra Strength] 25-500 mg Tablet
1 tab PO HSPRN PRN (Reason: sleep)
ipratropium-albuterol 0.5 mg-3 mg(2.5 mg base)/3 mL Solution For Nebulization
3 ml INHALATION R Q6HPRN PRN (Reason: SOB)
magnesium hydroxide [Milk of Magnesia] 400 mg/5 mL Suspension
2,400 mg PO I40DPCT PRN (Reason: IF NO BM BY 3RD DAY GIVE ON DAY 4)
bisacodyl [Dulcolax (bisacodyl)] 10 mg Suppository
10 mg [place] DAILYPRN PRN (Reason: IF NO BM AFTER MOM GIVE ON DAY 5)
calcium polycarbophil [FiberCon] 625 mg Tablet
625 mg PO DAILY
Fleet Enema 19-7 gram/118 mL Enema
118 ml [place] DAILYPRN PRN (Reason: IF NO BM AFTR DULCOLAX GIVE ON DAY 6)
escitalopram oxalate [Lexapro] 20 mg Tablet
20 mg PO DAILY
mirtazapine 7.5 mg Tablet
7.5 mg PO HS
budesonide 0.5 mg/2 mL Suspension For Nebulization
0.5 mg inhalation R BID Qty: 60 1RF
levothyroxine 100 mcg Tablet
100 mcg PO DAILY @ 0600 Qty: 30 0RF
guaifenesin 600 mg Tablet Extended Release 12hr
600 mg PO Q12 Qty: 20 0RF
prednisone 10 mg Tablet
10 mg PO DIRECTED Qty: 9 0RF
Rx Instructions:
starting 11/25. take 30mg x 1 days, then 20mg x 2 days, then 10mg x 2 days then stop
ipratropium-albuterol 0.5 mg-3 mg(2.5 mg base)/3 mL Solution For Nebulization
3 ml INHALATION TID Qty: 90 0RF
lorazepam 0.5 mg tablet
0.25 mg PO TIDPRN PRN (Reason: anxiety) Qty: 6 0RF
Lokelma 5 gram powder in packet
5 g PO DAILY Qty: 3 0RF
Referrals:
Abena Abad PA-C [Family Provider, Internal Medicine]
Interventions
Interventions:
*Risk Screen - Suicide Last Done: 12/10/24 09:57
*General Assessment Last Done: 12/10/24 09:57
*Neglect/Abuse Screening Last Done: 12/10/24 09:57
*ED- Fall Risk Assessment Last Done: 12/10/24 09:57
*ED COVID-19 Vaccine History Last Done: 12/10/24 09:57
ED- Cardiac Assessment Last Done: 12/10/24 09:57
ED- Pulmonary Assessment Last Done: 12/10/24 09:57
Discharge Date and Time
Print Language: LUXEMBOURGISH
[2024-12-10] MEDS: DUONEB 3 ML INH ×3 (10:18→20:59)
[2024-12-10] MEDS: DECADRON 10 MG IV (10:18)
[2024-12-10 10:23] LABS: Hematocrit 30.7 % (37.0-47.0); Hemoglobin 9.4 g/dL (12.0-16.0); Mean Corp Hgb Conc. 30.6 g/dL (33.0-37.0); Mean Corpuscular Volume 103.7 fL (81.0-99.0); Nucleated Red Blood Cells % 0 %; Platelet Count 281 10^3/uL (130-400); Red Cell Dist. Width 13.3 % (11.5-14.5)
[2024-12-10 10:41] LABS: ALT (SGPT) 81 U/L (0-35); AST (SGOT) 112 U/L (14-36); Albumin 3.4 g/dl (3.5-5.0); Alkaline Phosphatase 83 U/L (38-126); Blood Urea Nitrogen 26 mg/dl (7-17); Calcium 9.2 mg/dl (8.4-10.2); Carbon Dioxide 35 mmol/L (22-30); Chloride 96 mmol/L (98-107); Estimated Creatinine Clearance 39 ml/min; Glucose 85 mg/dl (70-99); Potassium 5.5 mmol/L (3.5-5.1); Sodium 135 mmol/L (135-145); Total Protein 6.8 g/dl (6.3-8.2); eGFR > 60.00
[2024-12-10] MEDS: ZOSYN 50 IV (14:26)
--- NOTE | 2024-12-10 14:34 | W.PN.UPDATE ---
Addendum entered and electronically signed by Lázaro Degroot MD 12/10/24 17:03:
Correction :
DVT Px: Lovenox
Code: DNR
<del>IP</del> <del>TLM</del> IMU
Addendum entered and electronically signed by Lázaro Degroot MD 12/10/24 15:55:
Prior HX tolerating 2 doses of IV Ancef 9 brionna op ) January 2024 per Pharmacist
- Thus IV Cefepime in place of Zosyn
Original Note:
Update Note
Progress Note Update
This note serves as an addendum to the H&P by PGY3
HPI
71F HX 3L O2 depedent COPD, bronchiectasis interstitial lung disease former smoker presents from [facility]
- increased work of breathing.
- chronically on 3 L of oxygen.
- [facility] nurse noticed hypoxia despite a normal oxygen within work of breathing and they sent her here.
ROS
She denies chest pain. No recent fever. She denies any pain. No vomiting. No leg swelling. No other complaints
Relevant�VS:
Vital Signs
Temp Pulse Resp BP Pulse Ox
98.6 F 114 35 164/86 99
12/10/24 14:31 12/10/24 14:30 12/10/24 14:30 12/10/24 14:00 12/10/24 14:30
PE
General: No Apparent Distress
HEENT: Normocephalic and Atraumatic
Respiratory: Negative Wheezes
Cardiac: Regular Rhythm and S1/S2
GI: Soft
Genito-urinary: No Costovertebral Tender
Neuro: AO x 3
Psych: Calm
Relevant� Data
11/19/24 11/29/24 12/10/24
08:42 06:20 10:15
WBC 8.9
Hgb 8.7 L 9.4 L
Potassium 5.5 H
Chloride 96 L
Carbon Dioxide 34 H 35 H
Creatinine 0.8
AST 112 H
ALT 81 H
Jlz-R-Wxeeqrxjzdf Pept 1610 3150
11/09/24 12/10/24
09:55 14:35
pH 7.48 H
pCO2 47 H
pO2 77 L
VBG pH 7.26 L
VBG pCO2 77 H*
VBG pO2 59 H
CXR : Interval worsening of confluent airspace disease within the right mid and lower lung suspicious for recurrent pneumonia superimposed upon chronic lung disease.
08/06/24 TTE
Normal biventricular size and systolic function without regional wall motion abnormality.
No significant valvular disease.
No prior study available for comparison
Last hospitalist admission: DATE OF ADMISSION: 11/19/2024 - DATE OF DISCHARGE: 11/24/2024
DISCHARGE DIAGNOSES:
1. Acute chronic obstructive pulmonary disease exacerbation.
2. Hypothyroidism.
3. Hyperkalemia.
ASSESSMENT & PLAN
Pending Rx reconciliation
Acute on chr Hypoxic RF
Decompensated acute on chr Resp acidosis - No flapping trmors
CXR suggestive of interval worsening of confluent airspace disease within the right mid and lower lung
Presumed recurrent PNA - no prior HX POS MRSA screen, prior NEG MRSA swab
HX O2 dependent advanced COPD/interstitial lung disease with flare
Cylindrical bronchiectasis RML and lingula - nor prior microdat suggesting Psudomonas
Pul fibrosis
HX mucous plugging
HX tobacco abuse/[id number] smoking history. Quit around 2009.
PMHX Severe Left lower lobe pneumonia s/p bronchoscopy 08/12/24 mostly lee (mucus plugging/poor airway clearance
- Goal POx 88 % - avoid excessive O2
- Repeat ABG 10 pm
- IV Decadron 4mg q12h
- BS ABx; IV vanco and + CFP in place of Zosyn
- Nebulizers- Duo nebs + budesonide ( Usually on Breztri)-would continue nebulized
- mucolytics
- Aspiration precautions.
- Acapella device continuous.
- Pul consult
Multiple lung nodules, measuring 3-5mm in both lower lobes and right upper lobe/AFB neg
History of pleural effusion
Interstitial lung disease
- Intermittent acute Hyperkalemia - underlying resp acidosis
- Chronic hypercarbia
- concern for CO2 retention - check ABG for baseline
- repeat BMP Friday and Friday
- c/w [employer] Lokelma daily
Elevated proBNP
Prior normal LVEF
- clinically not in acute HF
Chr Anemia
- stable around low 9s
HX Rheumatoid arthritis w/Immunosuppressed status
- on Plaquenil
Depression/anxiety
- continue Lexapro
Hypothyroidism
- continue Levothyroxine 100mcg
- Repeat TFTs in 4-6 weeks.
HX breast cancer s/p Left lumpectomy and axillary node dissection for stage I left breast carcinoma (1993, radiation/no chemo)
DVT ppx: Lovenox
Code: DNR/DNI
IP TLM
--- NOTE | 2024-12-10 14:40 | HPS.HSE ---
Addendum entered and electronically signed by Lázaro Degroot MD 12/10/24 15:54:
I saw and examined the patient.
The PGY3 note was reviewed and I agree with the note.
Comment:
Plz see my update note
Original Note:
Family Physician
-
Family Physician: Harmony Valentin DO
Chief Complaint
-
Shortness of breath
History of Present Illness
This is a 79-year-old female with past medical history of COPD, chronic hypoxic respiratory failure on 3 L of oxygen, restrictive lung disease, history of multiple lung nodules, pulmonary fibrosis, former tobacco user, rheumatoid arthritis, history
of breast cancer s/p left lumpectomy who was brought to the ED from [facility] due to increased work of breathing.� Patient reports episode of shortness of breath last night. Per at bedside, she is typically at baseline on 3-4 L, but required
6 L of oxygen yesterday. Shortness of breath continued into the morning, and she did not get enough sleep. At [facility] she was noted to be hypoxic at 82, despite being on her typical baseline oxygen level. She denies fever, denies chills.
states she has had no coughing episodes. She has been eating, drinking less. She denies chest pain, shortness of breath, palpitations at bedside. Upon presentation to the ED, blood pressure 132/72, pulse 110, respiratory rate 34, O2 sats
87%, required 6 L of oxygen, temperature 98.2.� Laboratory showed WBC 8.9, hemoglobin 9.4, potassium 5.5, CO2 35, BUN 26, creatinine 0.8, AST 112, ALT 81, proBNP 3150, albumin 3.4.
Medical History
Past Medical History
Past Medical History: Reports Other (COPD, chronic hypoxic respiratory failure, possible restrictive lung disease, history of right hip fracture from mechanical fall post by polar endoprosthesis placement, history of multiple lung nodules, pulmonary
fibrosis, former tobacco use, rheumatoid arthritis, history of breast cancer status pos)
Past Surgical History: Reports Other
Social History
Tobacco: Former Smoker
Alcohol: None
Drug: None
Personal:
Living: Correction
Family History
Family History: Not pertinent
Allergies / Home Medications
Allergies reflects when Allergies were last updated in [facility].
Home Medications with original date entered in [facility]
Allergy/Medication List:
Allergies
Allergy/AdvReac Type Severity Reaction Status Date / Time
cefaclor (From [facility]) Allergy hives, Verified 11/19/24 10:45
flushed-
tolerated
zosyn
07/2024
Home Medications
hydroxychloroquine 200 mg tablet 400 mg PO TUTHSA@2100 rheumatoid arthritis 04/27/17
Lactobac no.2-Bifidobac no.1-S. thermo 112.5 billion cell capsule (Visbiome) 1 cap PO DAILY probiotic 02/22/24
simvastatin 20 mg tablet 20 mg PO QPM cholesterol 02/22/24
therapeutic multivitamin 1 tab PO DAILY Supplement 02/22/24
famotidine 20 mg tablet 20 mg PO DAILY Gastrointestinal issue #0 tabs 08/17/24
diphenhydramine 25 mg-acetaminophen 500 mg tablet (Tylenol PM Extra Strength) 1 tab PO HSPRN PRN sleep 11/08/24
hydroxychloroquine 200 mg tablet 200 mg PO SUMOWEFR@2100 Antirheumatic 11/08/24
bisacodyl 10 mg rectal suppository (Dulcolax (bisacodyl)) 10 mg [place] DAILYPRN PRN IF NO BM AFTER MOM GIVE ON DAY 5 11/19/24
calcium polycarbophil 625 mg tablet (FiberCon) 625 mg PO DAILY Constipation 11/19/24
escitalopram oxalate 20 mg tablet (Lexapro) 20 mg PO DAILY Mental Health 11/19/24
ipratropium 0.5 mg-albuterol 3 mg (2.5 mg base)/3 mL nebulization soln 3 ml inhalation R Q6HPRN PRN SOB 11/19/24
magnesium hydroxide 400 mg/5 mL oral suspension (Milk of Magnesia) 2,400 mg PO [id number] PRN IF NO BM BY 3RD DAY GIVE ON DAY 4 11/19/24
mirtazapine 7.5 mg tablet 7.5 mg PO HS Mental Health/Anxiety 11/19/24
sodium phosphates 19 gram-7 gram/118 mL enema (Fleet Enema) 118 ml [place] DAILYPRN PRN IF NO BM AFTR DULCOLAX GIVE ON DAY 6 11/19/24
budesonide 0.5 mg/2 mL suspension for nebulization 0.5 mg (2 mL) inhalation R BID #60 mL 11/24/24
guaifenesin 600 mg tablet, extended release 12 hr 600 mg PO Q12 #20 tabs 11/24/24
levothyroxine 100 mcg tablet 100 mcg PO DAILY @ 0600 #30 tabs 11/24/24
lorazepam 0.5 mg tablet 0.25 mg (1/2 x 0.5 mg) PO TIDPRN PRN anxiety #6 tabs 11/24/24
sodium zirconium cyclosilicate 5 gram oral powder packet (Lokelma) 5 g PO DAILY #3 ea 11/24/24
acetaminophen 325 mg tablet (Tylenol) 650 mg PO Q4HPRN PRN mild pain 12/10/24
albuterol sulfate 90 mcg/actuation aerosol inhaler 2 puff inhalation R Q6HPRN PRN sob 12/10/24
docusate sodium 100 mg capsule (Colace) 200 mg PO DAILY 12/10/24
ipratropium 0.5 mg-albuterol 3 mg (2.5 mg base)/3 mL nebulization soln 3 ml inhalation R TID Lung/Breathing Issues 12/10/24
melatonin 5 mg tablet 5 mg PO HS 12/10/24
sodium chloride 0.65 % nasal spray aerosol 2 spray intranasal Q4HPRN PRN dryness 12/10/24
Review of Systems
-
A 12 point ROS was completed and negative except as noted: Yes
Constitutional: Reports Other (All review of systems obtained and negative except as documented)
Physical Exam
Vital Signs
Vital Signs
Temp Pulse Resp BP Pulse Ox
98.6 F 114 35 164/86 99
12/10/24 14:31 12/10/24 14:30 12/10/24 14:30 12/10/24 14:00 12/10/24 14:30
Physical Exam
General: No Apparent Distress and Cachectic
HEENT: Anicteric and Oxygen (On 6 L)
Respiratory: Wheezes, Rales and Decreased Breath Sounds
Cardiac: S1/S2 and Regular Rhythm
GI: Soft, Non Tender and Non Distended
Musculoskeletal: No Edema
Skin: Warm and Dry
Neuro: Awake, Alert and Oriented
Psych: Calm
Laboratory Results
-
12/10/24 10:15
12/10/24 10:15
Laboratory Results
Total Bilirubin 0.5 mg/dl (0.2-1.3) 12/10/24 10:15
AST 112 U/L (14-36) H 12/10/24 10:15
ALT 81 U/L (0-35) H 12/10/24 10:15
Alkaline Phosphatase 83 U/L (38-126) 12/10/24 10:15
Impression/Plan
-
Assessment/Plan
#Acute on chronic hypoxic respiratory failure likely secondary to pneumonia
#Advanced COPD/interstitial lung disease
#Respiratory Acidosis
-CXR- Interval worsening of confluent airspace disease within the right mid and lower lung suspicious for recurrent pneumonia superimposed upon chronic lung disease.
-On 3 L at baseline, now requiring 6 L on presentation
-Continue O2, wean to baseline as tolerated
-Given vancomycin plus Zosyn in ED, continue regimen
-Decadron 4 mg Q8
-DuoNebs
-Obtain sputum culture, MRSA screen
-Pulm consult
-Continue inhaled DuoNebs, home regimen
-Incentive spirometry
#Hyperkalemia
-Continue Lokelma
-Follow BMP
#Chronic anemia
-Likely anemia of chronic disease,
-Transfuse hemoglobin less than 7
#Rheumatoid arthritis
�continue to chloroquine
#Hypothyroidism
�continue levothyroxine
#Anxiety
�continue citalopram, Mirtazapine, lorazepam
#History of breast cancer s/p Left lumpectomy and axillary node dissection for stage I left breast carcinoma (1993, radiation/no chemo)
#History of tobacco abuse/[id number] smoking history. Quit around 2009.
#History of pleural effusion
#Interstitial lung disease
#Multiple lung nodules, measuring 3-5mm in both lower lobes and right upper lobe/AFB neg
CODE STATUS: DNR
DVT ppx: Lovenox
[2024-12-10 14:46] LABS: Venous Blood Gas B.E. 5.9 mmol/L (-4 to +4); Venous Blood Gas O2 Sat % 89.3 %
[2024-12-10] MEDS: VANCOCIN 200 IV (15:24)
--- NOTE | 2024-12-10 15:28 | CON.PUL ---
Consultation
Consultation Request
Date/Time Consultation Requested: 12/10/24
Date/Time Consultation Performed: 12/10/24
Performing Provider: Kameron
Reason for Consultation: SOB/PNA
Medical History
-
History of Present Illness:
Patient is a 79-year-old F with a history of COPD/restrictive lung disease, traction bronchiectasis and pulmonary nodules well known to our practice, recently discharged for admission due to CO2 retention and hypoxemia now readmitted with shortness
of breath. CXR showing multifocal PNA. She was recently discharged on 11/24/24. This is her 5th admission this year for recurrent mucus plugging/PNA, AECOPD, CO2 retention or combination of previous. She has history of poor mucus clearance,
severe restrictive lung disease, and has declined treatments as an OP.
Past Medical History
Past Medical History: Other (see list below)
Social History
Tobacco: Non-smoker
Alcohol: None
Drug: None
Family History
Family History: Reviewed & Not Pertinent
Allergies / Home Medications
Allergies
Allergy/AdvReac Type Severity Reaction Status Date / Time
cefaclor (From Ceclor) Allergy hives, Verified 11/19/24 10:45
flushed-
tolerated
zosyn
07/2024
Home Medications
�Medication �Instructions �Recorded �Confirmed �Last Taken �Type
hydroxychloroquine 200 mg tablet 400 mg PO TUTA@2100 rheumatoid 04/27/17 12/10/24 12/09/24 History
arthritis
Lactobac no.2-Bifidobac no.1-S. 1 cap PO DAILY probiotic 02/22/24 12/10/24 12/09/24 History
thermo 112.5 billion cell capsule
(Visbiome)
simvastatin 20 mg tablet 20 mg PO QPM cholesterol 02/22/24 12/10/24 12/09/24 History
therapeutic multivitamin 1 tab PO DAILY Supplement 02/22/24 12/10/24 12/09/24 History
famotidine 20 mg tablet 20 mg PO DAILY Gastrointestinal 08/17/24 12/10/24 12/10/24 Rx
issue #0 tabs
diphenhydramine 25 1 tab PO HSPRN PRN sleep 11/08/24 12/10/24 12/10/24 03:40 History
mg-acetaminophen 500 mg tablet
(Tylenol PM Extra Strength)
hydroxychloroquine 200 mg tablet 200 mg PO SUMOWEFR@2100 11/08/24 12/10/24 12/08/24 History
Antirheumatic
bisacodyl 10 mg rectal suppository 10 mg NC DAILYPRN PRN IF NO BM 11/19/24 12/10/24 Unknown History
(Dulcolax (bisacodyl)) AFTER MOM GIVE ON DAY 5
calcium polycarbophil 625 mg 625 mg PO DAILY Constipation 11/19/24 12/10/24 12/10/24 History
tablet (FiberCon)
escitalopram oxalate 20 mg tablet 20 mg PO DAILY Mental Health 11/19/24 12/10/24 12/10/24 History
(Lexapro)
ipratropium 0.5 mg-albuterol 3 mg 3 ml inhalation R Q6HPRN PRN SOB 11/19/24 12/10/24 11/19/24 History
(2.5 mg base)/3 mL nebulization
soln
magnesium hydroxide 400 mg/5 mL 2,400 mg PO O15HDPO PRN IF NO BM 11/19/24 12/10/24 Unknown History
oral suspension (Milk of Magnesia) BY 3RD DAY GIVE ON DAY 4
mirtazapine 7.5 mg tablet 7.5 mg PO HS Mental Health/Anxiety 11/19/24 12/10/24 12/09/24 History
sodium phosphates 19 gram-7 118 ml NC DAILYPRN PRN IF NO BM 11/19/24 12/10/24 Unknown History
gram/118 mL enema (Fleet Enema) AFTR DULCOLAX GIVE ON DAY 6
budesonide 0.5 mg/2 mL suspension 0.5 mg (2 mL) inhalation R BID #60 11/24/24 12/10/24 12/09/24 Rx
for nebulization mL
guaifenesin 600 mg tablet, 600 mg PO Q12 #20 tabs 11/24/24 12/10/24 12/09/24 Rx
extended release 12 hr
levothyroxine 100 mcg tablet 100 mcg PO DAILY @ 0600 #30 tabs 11/24/24 12/10/24 12/10/24 Rx
lorazepam 0.5 mg tablet 0.25 mg (1/2 x 0.5 mg) PO TIDPRN 11/24/24 12/10/24 12/10/24 Rx
PRN anxiety #6 tabs
sodium zirconium cyclosilicate 5 5 g PO DAILY #3 ea 11/24/24 12/10/24 12/10/24 Rx
gram oral powder packet (Lokelma)
acetaminophen 325 mg tablet 650 mg PO Q4HPRN PRN mild pain 12/10/24 12/10/24 12/08/24 History
(Tylenol)
albuterol sulfate 90 mcg/actuation 2 puff inhalation R Q6HPRN PRN sob 12/10/24 12/10/24 12/10/24 History
aerosol inhaler
docusate sodium 100 mg capsule 200 mg PO DAILY 12/10/24 12/10/24 12/09/24 History
(Colace)
ipratropium 0.5 mg-albuterol 3 mg 3 ml inhalation R TID 12/10/24 12/10/24 12/09/24 History
(2.5 mg base)/3 mL nebulization Lung/Breathing Issues
soln
melatonin 5 mg tablet 5 mg PO HS 12/10/24 12/10/24 12/09/24 History
sodium chloride 0.65 % nasal spray 2 spray intranasal Q4HPRN PRN 12/10/24 12/10/24 Unknown History
aerosol dryness
Review of Systems
-
History Source: Patient
All other systems: Negative unless noted
Vitals / Labs / Diagnostic Testing
Vital Signs
Temp Pulse Resp BP Pulse Ox
98.6 F 116 31 164/86 87
12/10/24 14:31 12/10/24 14:45 12/10/24 14:45 12/10/24 14:00 12/10/24 14:45
Lab Data
12/10/24 10:15
12/10/24 10:15
Diagnostic Testing:
Physical Exam
-
HEENT: Normocephalic, Anicteric and Moist Mucous Membranes
Cardiovascular: S1/S2 and Regular Rhythm
Respiratory: Rhonchi (diffuse/bilateral) and Non-Labored Respirations
GI: Soft, Non Distended and Non Tender
Neurology: Awake, Alert, Oriented and No Motor Deficits
Skin: Warm, Dry and Good Color
General: Comfortable and Other (thin appearing, anxious/SOB with conversation)
Assessment
-
Patient is a 79-year-old F with a history of COPD/restrictive lung disease, traction bronchiectasis and pulmonary nodules well known to our practice, recently discharged for admission due to CO2 retention and hypoxemia now readmitted with shortness
of breath. CXR showing multifocal PNA. She was recently discharged on 11/24/24. This is her 5th admission this year for recurrent mucus plugging/PNA, AECOPD, CO2 retention or combination of previous. She has history of poor mucus clearance,
severe restrictive lung disease, and has declined treatments as an OP. We are consulted for evaluation.
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
Acute on chronic SOB
Bilateral PNA
Hyperkalemia
Acute on chronic hypercarbic respiratory failure, VBG 7
Component of HF exacerbation, proBNP 3150
Conditions present prior to admission:
Recent hospitalization-discharge 11/10/2024 with confusion with recommendation of neuropsychiatric outpatient workup, pulmonary recommended palliative care to the family
Severe Left lower lobe pneumonia s/p bronchoscopy 08/12/24 mostly lee (mucus plugging/poor airway clearance)
R hip fractures s/p cemented bipolar endoprosthesis 02/23/24 s/p mechanical fall
Multiple lung nodules, measuring 3-5mm
s/p Bronchoscopy results 06/12/20: No endobronchial lesions. BAL was performed in both lower lobes and right upper lobe/AFB neg
COPD, severe-3 L oxygen at rest and 6 L with activity
Followed by Dr Melo as OP
PFT - FEV1 was 1.26 L or 59% of predicted and previously was 1.50 L or 74% predicted
Cylindrical bronchiectasis RML and lingula
Fibrosis noted on CT, new/progressed
History of tobacco abuse/[id number] smoking history. Quit around 2009.
Multiple pulmonary nodules..
Mucus plugging
History of pleural effusion
Interstitial lung disease
Rheumatoid arthritis w/ Immunosuppressed status .
Hypothyroid
History of breast cancer s/p Left lumpectomy and axillary node dissection for stage I left breast carcinoma (1993, radiation/no chemo)
Plan
Patient recently admitted to hospital with COPD flare-discharged 11/24/24
This is her 5th admission this year
Continue supplemental O2, weaning down as tolerated while keeping SpO2 88-95%-currently on 2-4 L nasal cannula.
CXR showing extensive bilateral pneumonia, compared to prior CT/chest x-ray
She had a similar admission in in July where she was admitted for prolonged stay requiring bronchoscopy and aggressive airway clearance to help her with mucous plugging
Prior history of severe restriction, bronchiectasis, COPD
She has very poor airway clearance efforts, she has declined vest therapy and Acapella at home
We have had numerous discussions in the past regarding readmission rates and recurrent plugging
Agree with IV abx and steroids
Can obtain sputum culture as able
We will continue airway clearance measures
Continue home nebulized therapy
Acute on chronic hypercarbia as noted, VBG with CO2 77
She has not tolerated BiPAP in the past, will resume while here and try again
We had a realistic discussion in terms of her prognosis with her present
Her QoL is very poor, but she remains unrealistic about her quality of life although her understands and is tearful
She states that she does not mind being readmitted to the hospital this many times
Patient is a DNR/DNI
We discussed palliative care and hospice referral as I think that this will be an ongoing issue and not curative
The would like to meet with hospice but the patient needed time to digest the conversation
We will plan to consult hospice by next week to continue the conversation
Elevated proBNP as noted
She has had prior echocardiogram with normal findings
Diuresis recommended, defer to team for management
Recommend CONTROL CLERK AUDITING eval; she does have a history of mild oral/pharyngeal dysphagia per prior CONTROL CLERK AUDITING evaluation in July 2024
Aspiration precautions, high risk
Continue physical/occupational therapy-came from subacute rehabilitation.
Dr. Melo reviewed with at the bedside 12/10/24
We will follow

Diagnostic data:
CXR 12/10/24- Interval worsening of confluent airspace disease within the right mid and lower lung suspicious for recurrent pneumonia superimposed upon chronic lung disease.
Chest x-ray 11/19/2024-interstitial lung disease/fibrosis, mild cardiomegaly
CXR 11/08/24- There is slightly increased interstitial and bibasilar opacities which may be secondary to multifocal pneumonia or superimposed edema in the setting of extensive chronic lung change.
CXR 08/15/24- Right PICC tip in the mid third of the superior vena cava. No pneumothorax. No other significant interval change.
Chest x-ray 08/13/24- Persistent left lung pneumonia, with improved aeration at the left lung base. Subtle air-fluid levels are noted superimposed on the left mid to lower lung zone, consistent with parenchymal cavities, possibly related to
necrotizing pneumonia. Mild thickening along the left major fissure, which could represent inflammatory reaction or fluid.
CT Chest 11/08/24- 1. There are findings of chronic interstitial/fibrotic lung disease with increased nodular consolidations with surrounding groundglass opacities in the right middle and lower lobes which likely represents pneumonia. 2. Similar
appearance of the cystic and nodular opacities within the left lower lobe which may be sequelae of prior cavitary pneumonia/pulmonary abscess.
CT CHEST 08/06/2024: There is increased extensive consolidation throughout the left lower lobe as well as nodular opacities in the right lower lobe consistent with worsening multifocal pneumonia. There are multiple gas containing foci within the
left lower lobe which appears slightly increased from prior and likely represent an element of cavitary pneumonia. Additionally there is a 4.7 x 3.1 cm and a 3.4 x 2.3 cm gas and fluid containing focus within the left lower lobe which are suspicious
for pulmonary abscesses.
CT CHEST 01/2024: 1.). The stability of the multiple bilateral pulmonary nodules dating back to 08/11/2020 suggests that they are benign
2). COPD with worsening predominantly interstitial fibrosis and bronchiectasis at the lung bases
3). Minimal left pleural effusion
PET/CT 02/04/20: IMPRESSION:� Pulmonary nodules with minimal FDG activity.� However, despite small size and low level activity, the 6.7 mm index lesion in the right upper lobe has a 25% increase in FDG activity on real-time point imaging. Suspicious
for neoplasm.� No FDG avid adenopathy. Physiologic versus pathologic FDG activity associated with the cecum and ascending colon. Recommend further evaluation/correlation with colonoscopy.� Likely physiologic asymmetric FDG activity associated with
the posterior margin of the left vocal cord. Clinical correlation recommended to exclude the possibility of asymmetric right vocal cord paralysis.
ECHO 08/06/24- Normal biventricular size and systolic function without regional wall motion abnormality. No significant valvular disease. No prior study available for comparison.
Total time spent on this consultation/encounter __80__ minutes which includes review of history, physical exam, medications, laboratory data, personal review of imaging, extensive review of outpatient records, discussion with care team and
respiratory therapy.
--- NOTE | 2024-12-10 19:27 | PHA.VAN.IN ---
Assessment
- Assessment
Renal Function: Appears similar to baseline
Concomitant Antimicrobials: cefepime
Plan
- Plan
Initial / Loading Dose: vanc 1000mg administered @ 1524
Maintenance Regimen: dosing by level
Monitoring: random level 12/11 06
MRSA Screen: Ordered per protocol
Pharmacokinetics Vancomycin I
- -
Patient Age: 79
Patient Sex: Female
Vancomycin Day #: 1
Indication: Pulmonary/Respiratory
Requesting Provider: Dr. Degroot
Pertinent Antimicrobial Allergies:
cefaclor - hives, flushed
Height / Weight:
Height 5 ft 1 in
Actual Weight 42.003 kg
Pertinent Past Medical History: COPD, RA
- Vital Signs / Lab Results
Temp Pulse Resp BP Pulse Ox
98.1 F 102 24 131/77 100
12/10/24 19:00 12/10/24 18:30 12/10/24 18:30 12/10/24 18:30 12/10/24 18:30
Lab Results - Hematology
12/10/24
10:15
WBC 8.9
Lab Results - Chemistry
12/10/24
10:15
BUN 26 H
Creatinine 0.8
Estimated Creat Clear 39
Albumin 3.4 L
[2024-12-10] MEDS: LOVENOX SC (19:54)
[2024-12-10] MEDS: MAXIPIME 1000 MG IV (19:54)
[2024-12-10] MEDS: LIPITOR PO (19:54)
[2024-12-10] MEDS: LOKELMA PO (19:54)
[2024-12-10] MEDS: STERILE WATER FOR INJECTION 10 ML IV (19:54)
[2024-12-10] MEDS: MUCINEX PO (19:55)
--- NOTE | 2024-12-10 20:03 | PTCARENOTE ---
Received pt from ED via stretcher. Pt able to ambulate into room with 1 assist. Pt AAOx3. 6L NC; lungs CTA, diminished, shallow respirations. Drowsy and expresses increased need for sleep as she hasn't been sleeping. and daughter at
bedside; both discussed interest in comfort care/hospice care for pt and very interested in speaking with someone sooner than later. Abx administered per order but other medications refused, including Lokelma. K+ is 5.5; educated pt and daughter
on the need for this medication; still refused. Oriented to room. Call whiteside within reach.
[2024-12-10] MEDS: PULMICORT 0.5 MG INH (20:59)
[2024-12-10] MEDS: PLAQUENIL PO (21:52)
[2024-12-10] MEDS: MELATONIN PO (22:28)
[2024-12-10] MEDS: DECADRON 4 MG IV (22:28)
[2024-12-10] MEDS: REMERON PO (22:28)
[2024-12-10 23:01] LABS: B.E. 12.1 mmol/L; HCO3 39.3 mmol/L (21-28); O2 Saturation % 100.0 % (94-98); PCO2 68 mmHg (32-35); PO2 157 mmHg (83-108)
[2024-12-11] VITALS (12 sets, daily range): BP systolic 94–140; BP diastolic 53–93; BMI 17.5
[2024-12-11] MEDS: ATIVAN 0.25 MG PO ×3 (01:23→21:21)
[2024-12-11] MEDS: STERILE WATER FOR INJECTION 10 ML IV ×3 (04:20→19:35)
[2024-12-11] MEDS: MAXIPIME 1000 MG IV ×3 (04:20→19:34)
[2024-12-11 04:43] LABS: Hematocrit 28.4 % (37.0-47.0); Hemoglobin 8.8 g/dL (12.0-16.0); Mean Corp Hgb Conc. 31.0 g/dL (33.0-37.0); Mean Corpuscular Volume 102.2 fL (81.0-99.0); Nucleated Red Blood Cells % 0 %; Platelet Count 336 10^3/uL (130-400); Red Cell Dist. Width 13.3 % (11.5-14.5)
[2024-12-11] MEDS: SYNTHROID PO (04:53)
[2024-12-11 05:09] LABS: ALT (SGPT) 81 U/L (0-35); AST (SGOT) 88 U/L (14-36); Albumin 3.2 g/dl (3.5-5.0); Alkaline Phosphatase 77 U/L (38-126); Blood Urea Nitrogen 23 mg/dl (7-17); Calcium 9.0 mg/dl (8.4-10.2); Carbon Dioxide 33 mmol/L (22-30); Chloride 98 mmol/L (98-107); Estimated Creatinine Clearance 38 ml/min; Glucose 106 mg/dl (70-99); Potassium 5.6 mmol/L (3.5-5.1); Sodium 136 mmol/L (135-145); Total Protein 6.3 g/dl (6.3-8.2); eGFR > 60.00
--- NOTE | 2024-12-11 07:00 | PTCARENOTE ---
Cannot verify VS captured from shift.
[2024-12-11] MEDS: DUONEB 3 ML INH ×3 (08:26→19:50)
[2024-12-11] MEDS: PULMICORT 0.5 MG INH ×2 (08:26→19:50)
--- NOTE | 2024-12-11 08:40 | PHA.VAN.FU ---
Vancomycin Assessment / Plan
- Assessment
Renal Function: Stable
WBC's are: Stable
In the past 24 hrs, patient has been: Afebrile
Concomitant Antimicrobials: Cefepime
- Assessment - Therapeutic Drug Monitoring
Random Level: 10.4 ~ 13hrs post Vanc 1gm
- Dosing Plan
Adjust Regimen to: Vanc 500mg IV Q24H
New Regimen Predicts: AUC (481.7), Peak (29.43), Trough (12.88)
- Monitoring Plan
No level(s) ordered at this time: Consider levels in the next few days.
- Follow Up
Pharmacy will continue to follow.
Vancomycin Follow UP
- -
Patient Age: 79
Patient Sex: Female
Vancomycin Day #: 2
Indication: Pulmonary/Respiratory
Requesting Provider: Dr. Degroot
Pertinent Antimicrobial Allergies:
cefaclor - hives, flushed
Height / Weight:
Height 5 ft 1 in
Actual Weight 42.003 kg
Pertinent Past Medical History: COPD, RA
- Vital Signs / Lab Results
Temp Pulse Resp BP Pulse Ox
97.9 F 107 17 94/53 99
12/11/24 06:43 12/11/24 08:29 12/11/24 08:29 12/11/24 06:00 12/11/24 08:29
Lab Results - Hematology
12/10/24 12/11/24
10:15 04:27
WBC 8.9 8.0
Lab Results - Chemistry
12/10/24 12/11/24
10:15 04:27
BUN 26 H 23 H
Creatinine 0.8 0.8
Estimated Creat Clear 39 38
Albumin 3.4 L 3.2 L
Therapeutic Drug Monitoring
Random Vancomycin 10.4 ug/ml 12/11/24 04:27
[2024-12-11] MEDS: LOKELMA 5 GRAM PO (09:24)
[2024-12-11] MEDS: PEPCID 20 MG PO (09:24)
[2024-12-11] MEDS: LEXAPRO 20 MG PO (09:25)
[2024-12-11] MEDS: DECADRON 4 MG IV ×2 (09:25→21:21)
[2024-12-11] MEDS: THERAGRAN 1 TABLET PO (09:25)
[2024-12-11] MEDS: VISBIOME 1 CAP PO (09:25)
[2024-12-11] MEDS: VANCOCIN HCL 500 MG 100 IV (09:36)
[2024-12-11] MEDS: MUCINEX PO (09:40)
[2024-12-11] MEDS: COLACE PO (09:40)
--- NOTE | 2024-12-11 11:59 | W.PN.PUL3 ---
Addendum entered and electronically signed by Grzegorz Spencer MD 12/11/24 12:09:
- Start hypertonic saline nebulized 3 times daily along with DuoNeb for airway clearance
- Initiate Lasix 20 mg PO daily, elevated BNP as well as bilateral pedal edema
- Wean FiO2 as tolerated. 40L, 50% currently.
Original Note:
Today's Communication / Plan
-
- Start hypertonic saline nebulized 3 times daily along with DuoNeb for airway clearance
- Initiate Lasix 40 mg IV daily, elevated BNP as well as bilateral pedal edema
Assessment
-
Patient is a 79-year-old F with a history of COPD/restrictive lung disease, traction bronchiectasis and pulmonary nodules well known to our practice, recently discharged for admission due to CO2 retention and hypoxemia now readmitted with shortness
of breath. CXR showing multifocal PNA. She was recently discharged on 11/24/24. This is her 5th admission this year for recurrent mucus plugging/PNA, AECOPD, CO2 retention or combination of previous. She has history of poor mucus clearance,
severe restrictive lung disease, and has declined treatments as an OP. We are consulted for evaluation.
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
Acute on chronic SOB
Bilateral PNA
Hyperkalemia
Acute on chronic hypercarbic respiratory failure, VBG 7
Component of HF exacerbation, proBNP 3150
Conditions present prior to admission:
Recent hospitalization-discharge 11/10/2024 with confusion with recommendation of neuropsychiatric outpatient workup, pulmonary recommended palliative care to the family
Severe Left lower lobe pneumonia s/p bronchoscopy 08/12/24 mostly lee (mucus plugging/poor airway clearance)
R hip fractures s/p cemented bipolar endoprosthesis 02/23/24 s/p mechanical fall
Multiple lung nodules, measuring 3-5mm
s/p Bronchoscopy results 06/12/20: No endobronchial lesions. BAL was performed in both lower lobes and right upper lobe/AFB neg
COPD, severe-3 L oxygen at rest and 6 L with activity
Followed by Dr Melo as OP
PFT - FEV1 was 1.26 L or 59% of predicted and previously was 1.50 L or 74% predicted
Cylindrical bronchiectasis RML and lingula
Fibrosis noted on CT, new/progressed
History of tobacco abuse/[id number] smoking history. Quit around 2009.
Multiple pulmonary nodules..
Mucus plugging
History of pleural effusion
Interstitial lung disease
Rheumatoid arthritis w/ Immunosuppressed status .
Hypothyroid
History of breast cancer s/p Left lumpectomy and axillary node dissection for stage I left breast carcinoma (1993, radiation/no chemo)
Plan
Patient recently admitted to hospital with COPD flare-discharged 11/24/24
This is her 5th admission this year
Continue supplemental O2, weaning down as tolerated while keeping SpO2 88-95%-currently on 2-4 L nasal cannula.
CXR showing extensive bilateral pneumonia, compared to prior CT/chest x-ray
She had a similar admission in in July where she was admitted for prolonged stay requiring bronchoscopy and aggressive airway clearance to help her with mucous plugging
Prior history of severe restriction, bronchiectasis, COPD
She has very poor airway clearance efforts, she has declined vest therapy and Acapella at home
We have had numerous discussions in the past regarding readmission rates and recurrent plugging
Agree with IV abx and steroids
Can obtain sputum culture as able
We will continue airway clearance measures
Continue home nebulized therapy
Start hypertonic saline 3 times daily
Acute on chronic hypercarbia as noted, VBG with CO2 77
She has not tolerated BiPAP in the past, will resume while here and try again
12/10, Kameron Pascual, 'We had a realistic discussion in terms of her prognosis with her present
Her QoL is very poor, but she remains unrealistic about her quality of life although her understands and is tearful
She states that she does not mind being readmitted to the hospital this many times
Patient is a DNR/DNI
We discussed palliative care and hospice referral as I think that this will be an ongoing issue and not curative
The would like to meet with hospice but the patient needed time to digest the conversation
We will plan to consult hospice by next week to continue the conversation'
Elevated proBNP as noted
She has had prior echocardiogram with normal findings
Start Lasix 40 mg IV daily
Recommend IT SYSTEMS ENGINEER eval; she does have a history of mild oral/pharyngeal dysphagia per prior IT SYSTEMS ENGINEER evaluation in July 2024
Aspiration precautions, high risk
Continue physical/occupational therapy-came from subacute rehabilitation.

Diagnostic data:
CXR 12/10/24- Interval worsening of confluent airspace disease within the right mid and lower lung suspicious for recurrent pneumonia superimposed upon chronic lung disease.
Chest x-ray 11/19/2024-interstitial lung disease/fibrosis, mild cardiomegaly
CXR 11/08/24- There is slightly increased interstitial and bibasilar opacities which may be secondary to multifocal pneumonia or superimposed edema in the setting of extensive chronic lung change.
CXR 08/15/24- Right PICC tip in the mid third of the superior vena cava. No pneumothorax. No other significant interval change.
Chest x-ray 08/13/24- Persistent left lung pneumonia, with improved aeration at the left lung base. Subtle air-fluid levels are noted superimposed on the left mid to lower lung zone, consistent with parenchymal cavities, possibly related to
necrotizing pneumonia. Mild thickening along the left major fissure, which could represent inflammatory reaction or fluid.
CT Chest 11/08/24- 1. There are findings of chronic interstitial/fibrotic lung disease with increased nodular consolidations with surrounding groundglass opacities in the right middle and lower lobes which likely represents pneumonia. 2. Similar
appearance of the cystic and nodular opacities within the left lower lobe which may be sequelae of prior cavitary pneumonia/pulmonary abscess.
CT CHEST 08/06/2024: There is increased extensive consolidation throughout the left lower lobe as well as nodular opacities in the right lower lobe consistent with worsening multifocal pneumonia. There are multiple gas containing foci within the
left lower lobe which appears slightly increased from prior and likely represent an element of cavitary pneumonia. Additionally there is a 4.7 x 3.1 cm and a 3.4 x 2.3 cm gas and fluid containing focus within the left lower lobe which are suspicious
for pulmonary abscesses.
CT CHEST 01/2024: 1.). The stability of the multiple bilateral pulmonary nodules dating back to 08/11/2020 suggests that they are benign
2). COPD with worsening predominantly interstitial fibrosis and bronchiectasis at the lung bases
3). Minimal left pleural effusion
PET/CT 02/04/20: IMPRESSION:� Pulmonary nodules with minimal FDG activity.� However, despite small size and low level activity, the 6.7 mm index lesion in the right upper lobe has a 25% increase in FDG activity on real-time point imaging. Suspicious
for neoplasm.� No FDG avid adenopathy. Physiologic versus pathologic FDG activity associated with the cecum and ascending colon. Recommend further evaluation/correlation with colonoscopy.� Likely physiologic asymmetric FDG activity associated with
the posterior margin of the left vocal cord. Clinical correlation recommended to exclude the possibility of asymmetric right vocal cord paralysis.
ECHO 08/06/24- Normal biventricular size and systolic function without regional wall motion abnormality. No significant valvular disease. No prior study available for comparison.
Total time spent on this consultation/encounter __80__ minutes which includes review of history, physical exam, medications, laboratory data, personal review of imaging, extensive review of outpatient records, discussion with care team and
respiratory therapy.
Subjective Data
-
Date of Service:
Date of Service: December 11, 2024
Subjective:
Patient comfortable lying in bed in no acute distress.
Review of Systems
Genitourinary: Other (Denies any new symptoms.)
Objective Data
Data Reviewed
Vital Signs / I&O / Oxygen:
Vital Signs
Temp Pulse Resp BP Pulse Ox
97.8 F 107 17 140/74 96
12/11/24 11:00 12/11/24 08:29 12/11/24 08:29 12/11/24 08:00 12/11/24 09:51
Intake and Output
12/10/24 12/11/24 12/12/24
06:59 06:59 06:59
Output Total 500 / 500
Balance -500 / -500
SaO2 96
Nasal Cannula flow liters per 5
minute
Physical Exam
General: Comfortable
HEENT: Normocephalic
Cardiovascular: S1-S2 and Peripheral Edema
Respiratory: Clear and Non-Labored Respirations
GI: Soft and Non Distended
Neurology: Awake and Alert
Skin: Warm
Labs/Micro/Reports
Lab Data
12/11/24 04:27
12/11/24 04:27
Laboratory Results
12/10/24
22:53
pH 7.37
pCO2 68 H
pO2 157 H
HCO3 39.3 H
O2 Delivery Level
Microbiology
12/11/24 04:30 Nose Nasal Screen MRSA (PCR) - Final
MRSA not detected - performed by PCR methodology.
--- NOTE | 2024-12-11 12:31 | PTCARENOTE ---
Pt's assessment as documented. Aox3, [place]. ST on tele monitor. Pt desatting to the low 80's on 6L NC while attempting to use bedpan- pt insisting on using BSC. D/w Dr. Helms; order received for HFNC. Pt tolerating HF well and able to use BSC.
Family educated on plan of care. Pt able to ring appropriately, call whiteside within reach. Bed alarm in place for safety.
--- NOTE | 2024-12-11 13:12 | CM ---
anatomic pathology manager reviewed patient's chart and met with patient, spouse and daughter Mirella at bedside, patient states that she was admitted from [facility] 4th floor. Patient required oxygen prior to admission and was an assist with adl's and used
a walker with ambulation.
Patient is now on 40 liters high flow 50%, patient and spouse wanted to review all options for discharge planning and would like to review hospice, disease case manager rn reviewed and and patient and spouse have agreed to an initial meeting with [facility] for information only. anatomic pathology manager reached out to [facility].
PCP: Harmony Valentin
--- NOTE | 2024-12-11 14:00 | HOSPNOTE ---
Addendum entered by Farida Lipscomb RN 12/11/24 14:21:
Referral received - will wait for Friday for contact
Original Note:
Rec�d a call from Susanna Jose CM that the family was interested in learning more about hospice. No referral sent yet. Called and spoke to Brandon Gonzalez (patient�s [phone]) he mentioned that Dr Madeline Melo said she would be sending a
referral on Friday and he was told that an in person introduction be completed on Friday when he and his daughter Mirella could be present at the bedside. He also wants to ensure that his is included in the conversation. He stated that he and
Mirella are typically bedside in the morning but could be reached by phone to come to the hospital at a good time. [place] [employer]. Will set up a time Friday for in person introduction.
--- NOTE | 2024-12-11 14:15 | CM ---
Family hoping to meet with physician on Friday to discuss hospice care. Referral sent to [facility] for evaluation.
CM will continue to follow.
[2024-12-11] MEDS: SODIUM CHLORIDE 3% FOR INHALATION 1 VIAL INH ×2 (14:25→19:50)
--- NOTE | 2024-12-11 14:31 | W.PN.HOSP.TC ---
Today's Communication/Plan
-
Assessment / Plan
Assessment / Plan
General: Chronically ill-appearing, frail
HEENT: NormoCephalic, dry mucous membranes, Atraumatic
Respiratory: Rhonchorous breath sounds bilaterally, increased work of breathing
Cardiac: S1/S2 and Regular Rhythm; No Rub or Gallop
GI: Soft, Non Tender, Non Distended and Normal Bowel Sounds
Musculoskeletal: No Edema, no deformity, significantly decreased muscle bulk throughout
Skin: Warm and dry
: NO Jones
Neuro: Somnolent, no tremor
Psych: Unable to assess
Ms. Gonzalez is a 79-year-old female with a medical history of severe COPD, chronic hypoxic respiratory failure (3 L baseline), restrictive lung disease with pulmonary fibrosis, breast cancer (status post lumpectomy and radiation 1993), hypothyroidism,
and rheumatoid arthritis who was brought from her living facility due to increased work of breathing and worsening hypoxia. She was requiring up to 6 L via nasal cannula and her dyspnea has been bad enough to interfere with her ability to sleep.
This is her fifth hospitalization this year for similar symptoms. She follows closely with outpatient pulmonology and have had multiple discussions about her poor prognosis and goals of care. She remains DNR and family are planning a hospice
conversation in the near future. In the meantime she has been restarted on IV steroids and antibiotics and admitted for further evaluation and management.
Acute on chronic respiratory failure with hypoxia:
- Secondary to progressively worsening with COPD and interstitial lung disease, potentially further complicated by bacterial pneumonia
- Increasingly dyspneic and hypoxic, now on high flow nasal cannula
- Broad-spectrum antibiotics with IV vancomycin and cefepime
- IV dexamethasone 4 mg every 12 hours
- Aggressive chest PT, 3% saline inhalers
- Continue scheduled nebulizer treatments with additional as needed
- Oral lorazepam for anxiety
- Appreciate pulmonology guidance
- Remains DNR, hospice conversations would be very appropriate
Severe protein calorie malnutrition:
- Suspect due to severe lung disease and poor p.o. intake
- Continue to encourage adequate p.o. intake and nutritional supplements
Hyperkalemia:
- Continue Lokelma
Rheumatoid arthritis:
- Continue hydroxychloroquine
Hypothyroidism:
- Continue home Synthroid 100 mcg daily
Anxiety:
- Continue home escitalopram 20 mg daily and mirtazapine 7.5 mg at night
- Low-dose p.o. lorazepam as needed
DVT prophylaxis: Lovenox
CODE STATUS: DNR
Total time spent on today's encounter was 52 minutes.
Anticipated Discharge: > 48 hours
Subjective/Interval History
-
Date of Service: December 11, 2024
Patient was seen and examined at bedside this morning. Somnolent and minimally interactive, chronically ill-appearing. Started on high flow nasal cannula for increased work of breathing with hypoxia. She remains DNR. Family planning hospice
conversation
Objective Data
-
Labs:
Laboratory Results
12/11/24
04:27
WBC 8.0
Hgb 8.8 L
Hct 28.4 L
Plt Count 336
Sodium 136
Potassium 5.6 H
Chloride 98
Carbon Dioxide 33 H
BUN 23 H
Creatinine 0.8
Glucose 106 H
Calcium 9.0
Total Bilirubin 0.3
AST 88 H
ALT 81 H
Alkaline Phosphatase 77
Vital Signs:
Vital Signs
Temp Pulse Resp BP Pulse Ox
97.8 F 118 22 139/78 99
12/11/24 11:00 12/11/24 14:27 12/11/24 14:27 12/11/24 12:00 12/11/24 14:27
I&O
12/10/24 12/11/24 12/12/24
06:59 06:59 06:59
Output Total 500 / 500
Balance -500 / -500
Review of Systems
-
Unable to obtain full review of systems at this time due to: Acuity
Physical Exam
-
General: Appears Chronically Ill
[2024-12-11] MEDS: LIPITOR 10 MG PO (17:44)
[2024-12-11] MEDS: LOVENOX 30 MG SC (17:44)
[2024-12-11] MEDS: MUCINEX 600 MG PO (19:34)
[2024-12-11] MEDS: PLAQUENIL 400 MG PO (21:20)
[2024-12-11] MEDS: MELATONIN 5 MG PO (21:21)
[2024-12-11] MEDS: BENADRYL PO (21:21)
[2024-12-11] MEDS: REMERON 7.5 MG PO (21:21)
[2024-12-11] MEDS: BENADRYL 25 MG PO (21:27)
[2024-12-12] VITALS (13 sets, daily range): BP systolic 95–144; BP diastolic 59–118
--- NOTE | 2024-12-12 00:06 | PTCARENOTE ---
Assumed care for patient overnight. Pt AAOx3, very pleasant. Pt is [place] w/ b/l hearing aids. Received pt on HFNC 40L 40%. SpO2 95%. Pt tolerating well. RT bedside for treatments and educated regarding use of Acapella. Pt compliant with use. Pt
ambulated to the [facility] with x1 assistance. Pt desatted to 87% while returning to bed. Utilized NRB for recovery. Pt and pt requesting PRN Ativan for nighttime, see MAR. Pt ringing the call whiteside appropriately, call whiteside within reach.
[2024-12-12] MEDS: STERILE WATER FOR INJECTION 10 ML IV ×3 (03:04→20:25)
[2024-12-12] MEDS: MAXIPIME 1000 MG IV ×3 (03:05→20:25)
[2024-12-12 03:39] LABS: Hematocrit 26.7 % (37.0-47.0); Hemoglobin 8.3 g/dL (12.0-16.0); Mean Corp Hgb Conc. 31.1 g/dL (33.0-37.0); Mean Corpuscular Volume 101.5 fL (81.0-99.0); Platelet Count 321 10^3/uL (130-400); Red Cell Dist. Width 13.4 % (11.5-14.5)
[2024-12-12 04:06] LABS: Blood Urea Nitrogen 30 mg/dl (7-17); Calcium 9.2 mg/dl (8.4-10.2); Carbon Dioxide 35 mmol/L (22-30); Chloride 98 mmol/L (98-107); Estimated Creatinine Clearance 38 ml/min; Glucose 114 mg/dl (70-99); Magnesium 2.2 mg/dl (1.6-2.3); Potassium 5.0 mmol/L (3.5-5.1); Sodium 135 mmol/L (135-145); eGFR > 60.00
[2024-12-12] MEDS: VANCOCIN HCL 500 MG 100 IV (05:20)
[2024-12-12] MEDS: SODIUM CHLORIDE 3% FOR INHALATION 1 VIAL INH ×3 (07:14→19:19)
[2024-12-12] MEDS: PULMICORT 0.5 MG INH ×2 (07:14→19:19)
[2024-12-12] MEDS: DUONEB 3 ML INH ×3 (07:14→19:19)
[2024-12-12] MEDS: SYNTHROID PO (07:20)
--- NOTE | 2024-12-12 08:23 | PHA.VAN.FU ---
Vancomycin Assessment / Plan
- Assessment
Renal Function: Stable
WBC's are: Trending Up
In the past 24 hrs, patient has been: Afebrile
Concomitant Antimicrobials: Cefepime
- Dosing Plan
Continue: Vanc 500mg IV q24H
- Monitoring Plan
No level(s) ordered at this time: Consider levels after 12/14 dose.
- Follow Up
Pharmacy will continue to follow.
Vancomycin Follow UP
- -
Patient Age: 79
Patient Sex: Female
Vancomycin Day #: 3
Indication: Pulmonary/Respiratory
Requesting Provider: Dr. Degroot
Pertinent Antimicrobial Allergies:
cefaclor - hives, flushed
Height / Weight:
Height 5 ft 1 in
Actual Weight 42.003 kg
Pertinent Past Medical History: COPD, RA
- Vital Signs / Lab Results
Temp Pulse Resp BP Pulse Ox
98.2 F 94 20 137/77 97
12/12/24 03:41 12/12/24 07:17 12/12/24 07:17 12/12/24 06:00 12/12/24 07:18
Lab Results - Hematology
12/10/24 12/11/24 12/12/24
10:15 04:27 03:19
WBC 8.9 8.0 9.3
Lab Results - Chemistry
12/10/24 12/11/24 12/12/24
10:15 04:27 03:19
BUN 26 H 23 H 30 H
Creatinine 0.8 0.8 0.8
Estimated Creat Clear 39 38 38
Albumin 3.4 L 3.2 L
Microbiology Results
12/11/24 04:30 Nasal Screen MRSA (PCR) - Final
Nose MRSA not detected - performed by PCR methodology.
Therapeutic Drug Monitoring
Random Vancomycin 10.4 ug/ml 12/11/24 04:27
[2024-12-12] MEDS: COLACE 200 MG PO (08:28)
[2024-12-12] MEDS: THERAGRAN 1 TABLET PO (08:28)
[2024-12-12] MEDS: SYNTHROID 100 MCG PO (08:28)
[2024-12-12] MEDS: LEXAPRO 20 MG PO (08:28)
[2024-12-12] MEDS: MUCINEX 600 MG PO ×2 (08:30→20:23)
[2024-12-12] MEDS: VISBIOME 1 CAP PO (08:30)
[2024-12-12] MEDS: PEPCID 20 MG PO (08:30)
[2024-12-12] MEDS: LOKELMA PO (08:41)
--- NOTE | 2024-12-12 09:19 | HOSPNOTE ---
In person introduction set for tomorrow at 930 am with patient, spouse and daughter. More information to follow
[2024-12-12] MEDS: ATIVAN 0.25 MG PO (09:36)
[2024-12-12] MEDS: LOKELMA 5 GRAM PO (10:30)
[2024-12-12] MEDS: DECADRON 4 MG IV (10:30)
--- NOTE | 2024-12-12 11:26 | W.PN.PUL3 ---
Today's Communication / Plan
-
- Continue to wean O2, likely can go on mid flow
- Continue Acapella valve, hypertonic saline
- MRSA screen negative, discontinue IV vancomycin
- Discontinue IV dexamethasone, start prednisone 30 mg daily in a.m.
- Hospice evaluation appropriate
Assessment
-
Patient is a 79-year-old F with a history of COPD/restrictive lung disease, traction bronchiectasis and pulmonary nodules well known to our practice, recently discharged for admission due to CO2 retention and hypoxemia now readmitted with shortness
of breath. CXR showing multifocal PNA. She was recently discharged on 11/24/24. This is her 5th admission this year for recurrent mucus plugging/PNA, AECOPD, CO2 retention or combination of previous. She has history of poor mucus clearance,
severe restrictive lung disease, and has declined treatments as an OP. We are consulted for evaluation.
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
Acute on chronic SOB
Bilateral PNA
Hyperkalemia
Acute on chronic hypercarbic respiratory failure, VBG
Component of HF exacerbation, proBNP 3150
Conditions present prior to admission:
Recent hospitalization-discharge 11/10/2024 with confusion with recommendation of neuropsychiatric outpatient workup, pulmonary recommended palliative care to the family
Severe Left lower lobe pneumonia s/p bronchoscopy 08/12/24 mostly lee (mucus plugging/poor airway clearance)
R hip fractures s/p cemented bipolar endoprosthesis 02/23/24 s/p mechanical fall
Multiple lung nodules, measuring 3-5mm
s/p Bronchoscopy results 06/12/20: No endobronchial lesions. BAL was performed in both lower lobes and right upper lobe/AFB neg
COPD, severe-3 L oxygen at rest and 6 L with activity
Followed by Dr Melo as OP
PFT - FEV1 was 1.26 L or 59% of predicted and previously was 1.50 L or 74% predicted
Cylindrical bronchiectasis RML and lingula
Fibrosis noted on CT, new/progressed
History of tobacco abuse/85-drvd-eyop smoking history. Quit around 2009.
Multiple pulmonary nodules..
Mucus plugging
History of pleural effusion
Interstitial lung disease
Rheumatoid arthritis w/ Immunosuppressed status .
Hypothyroid
History of breast cancer s/p Left lumpectomy and axillary node dissection for stage I left breast carcinoma (1993, radiation/no chemo)
Plan
Patient recently admitted to hospital with COPD flare-discharged 11/24/24
This is her 5th admission this year
Continue supplemental O2, weaning down as tolerated while keeping SpO2 88-95%-currently on high flow nasal cannula, 40% FiO2, at 40 L.
CXR showing extensive bilateral pneumonia, compared to prior CT/chest x-ray
She had a similar admission in in July where she was admitted for prolonged stay requiring bronchoscopy and aggressive airway clearance to help her with mucous plugging
Prior history of severe restriction, bronchiectasis, COPD
She has very poor airway clearance efforts, she has declined vest therapy in the past. Agreeable to try Acapella now.
We have had numerous discussions in the past regarding readmission rates and recurrent plugging
Agree with IV abx and steroids. MRSA screen negative, discontinue IV vancomycin. Switch to PO Prednisone
Can obtain sputum culture as able
We will continue airway clearance measures
Continue home nebulized therapy
Started hypertonic saline 3 times daily
Acute on chronic hypercarbia as noted, VBG with CO2 77
She has not tolerated BiPAP in the past
12/10, Kameron Pascual, 'We had a realistic discussion in terms of her prognosis with her present
Her QoL is very poor, but she remains unrealistic about her quality of life although her understands and is tearful
She states that she does not mind being readmitted to the hospital this many times
Patient is a DNR/DNI
We discussed palliative care and hospice referral as I think that this will be an ongoing issue and not curative
The would like to meet with hospice but the patient needed time to digest the conversation
We will plan to consult hospice by next week to continue the conversation'
Elevated proBNP as noted
She has had prior echocardiogram with normal findings
Continue Lasix PO daily
Recommend GEOTECHNICAL OPERATING ENGINEER eval; she does have a history of mild oral/pharyngeal dysphagia per prior GEOTECHNICAL OPERATING ENGINEER evaluation in July 2024
Aspiration precautions, high risk
Continue physical/occupational therapy-came from subacute rehabilitation.
Total time spent on this consultation/encounter __42__ minutes which includes review of history, physical exam, medications, laboratory data, personal review of imaging, extensive review of outpatient records, discussion with care team and
respiratory therapy.
Discussed with daughter at bedside, hospice evaluation in AM.

Diagnostic data:
CXR 12/10/24- Interval worsening of confluent airspace disease within the right mid and lower lung suspicious for recurrent pneumonia superimposed upon chronic lung disease.
Chest x-ray 11/19/2024-interstitial lung disease/fibrosis, mild cardiomegaly
CXR 11/08/24- There is slightly increased interstitial and bibasilar opacities which may be secondary to multifocal pneumonia or superimposed edema in the setting of extensive chronic lung change.
CXR 08/15/24- Right PICC tip in the mid third of the superior vena cava. No pneumothorax. No other significant interval change.
Chest x-ray 08/13/24- Persistent left lung pneumonia, with improved aeration at the left lung base. Subtle air-fluid levels are noted superimposed on the left mid to lower lung zone, consistent with parenchymal cavities, possibly related to
necrotizing pneumonia. Mild thickening along the left major fissure, which could represent inflammatory reaction or fluid.
CT Chest 11/08/24- 1. There are findings of chronic interstitial/fibrotic lung disease with increased nodular consolidations with surrounding groundglass opacities in the right middle and lower lobes which likely represents pneumonia. 2. Similar
appearance of the cystic and nodular opacities within the left lower lobe which may be sequelae of prior cavitary pneumonia/pulmonary abscess.
CT CHEST 08/06/2024: There is increased extensive consolidation throughout the left lower lobe as well as nodular opacities in the right lower lobe consistent with worsening multifocal pneumonia. There are multiple gas containing foci within the
left lower lobe which appears slightly increased from prior and likely represent an element of cavitary pneumonia. Additionally there is a 4.7 x 3.1 cm and a 3.4 x 2.3 cm gas and fluid containing focus within the left lower lobe which are suspicious
for pulmonary abscesses.
CT CHEST 01/2024: 1.). The stability of the multiple bilateral pulmonary nodules dating back to 08/11/2020 suggests that they are benign
2). COPD with worsening predominantly interstitial fibrosis and bronchiectasis at the lung bases
3). Minimal left pleural effusion
PET/CT 02/04/20: IMPRESSION:� Pulmonary nodules with minimal FDG activity.� However, despite small size and low level activity, the 6.7 mm index lesion in the right upper lobe has a 25% increase in FDG activity on real-time point imaging. Suspicious
for neoplasm.� No FDG avid adenopathy. Physiologic versus pathologic FDG activity associated with the cecum and ascending colon. Recommend further evaluation/correlation with colonoscopy.� Likely physiologic asymmetric FDG activity associated with
the posterior margin of the left vocal cord. Clinical correlation recommended to exclude the possibility of asymmetric right vocal cord paralysis.
ECHO 08/06/24- Normal biventricular size and systolic function without regional wall motion abnormality. No significant valvular disease. No prior study available for comparison.
Subjective Data
-
Date of Service:
Date of Service: December 12, 2024
Subjective:
Comfortably sitting in bed, in no acute distress, reports overall feeling somewhat better.
Review of Systems
Genitourinary: Other (All 14 systems reviewed and negative except as stated above in the history of present illness.)
Objective Data
Data Reviewed
Vital Signs / I&O / Oxygen:
Vital Signs
Temp Pulse Resp BP Pulse Ox
98.2 F 94 20 137/77 98
12/12/24 03:41 12/12/24 07:17 12/12/24 07:17 12/12/24 06:00 12/12/24 11:08
Intake and Output
12/11/24 12/12/24 12/13/24
06:59 06:59 06:59
Output Total 500 / 500 650 / 650
Balance -500 / -500 -650 / -650
SaO2 98
Nasal Cannula flow liters per 40
minute
Physical Exam
General: Comfortable
HEENT: Normocephalic
Cardiovascular: S1-S2 and Peripheral Edema
Respiratory: Clear and Non-Labored Respirations
GI: Soft and Non Distended
Neurology: Awake and Alert
Skin: Warm
Labs/Micro/Reports
Lab Data
12/12/24 03:19
12/12/24 03:19
Microbiology
12/11/24 04:30 Nose Nasal Screen MRSA (PCR) - Final
MRSA not detected - performed by PCR methodology.
--- NOTE | 2024-12-12 14:38 | W.PN.HOSP.TC ---
Today's Communication/Plan
-
Assessment / Plan
Assessment / Plan
General: Chronically ill-appearing, frail
HEENT: NormoCephalic, dry mucous membranes, high flow nasal cannula
Respiratory: Rhonchorous breath sounds bilaterally, increased work of breathing
Cardiac: S1/S2 and Regular Rhythm; No Rub or Gallop
GI: Soft, Non Tender, Non Distended and Normal Bowel Sounds
Musculoskeletal: No Edema, no deformity, significantly decreased muscle bulk throughout
Skin: Warm and dry
: NO Jones
Neuro: Awake and alert, no tremor
Psych: Calm and cooperative
Ms. Gonzalez is a 79-year-old female with a medical history of severe COPD, chronic hypoxic respiratory failure (3 L baseline), restrictive lung disease with pulmonary fibrosis, breast cancer (status post lumpectomy and radiation 1993), hypothyroidism,
and rheumatoid arthritis who was brought from her living facility due to increased work of breathing and worsening hypoxia. She was requiring up to 6 L via nasal cannula and her dyspnea has been bad enough to interfere with her ability to sleep.
This is her fifth hospitalization this year for similar symptoms. She follows closely with outpatient pulmonology and have had multiple discussions about her poor prognosis and goals of care. She remains DNR and family are planning a hospice
conversation in the near future. In the meantime she has been restarted on IV steroids and antibiotics and admitted for further evaluation and management.
Acute on chronic respiratory failure with hypoxia:
- Secondary to progressively worsening with COPD and interstitial lung disease, potentially further complicated by bacterial pneumonia
- Increasingly dyspneic and hypoxic, now on high flow nasal cannula, weaned to mid flow as able
- Antibiotic coverage with cefepime
- Transitioning steroid treatment to prednisone 30 mg daily
- Aggressive chest PT, 3% saline inhalers
- Continue scheduled nebulizer treatments with additional as needed
- Oral lorazepam for anxiety
- Appreciate pulmonology guidance
- Remains DNR, hospice meeting planned for tomorrow 12/13
Severe protein calorie malnutrition:
- Suspect due to severe lung disease and poor p.o. intake
- Continue to encourage adequate p.o. intake and nutritional supplements
Hyperkalemia:
- Continue Lokelma
Transaminitis:
- Chronic, stable
Rheumatoid arthritis:
- Continue hydroxychloroquine
Hypothyroidism:
- Continue home Synthroid 100 mcg daily
Anxiety:
- Continue home escitalopram 20 mg daily and mirtazapine 7.5 mg at night
- Low-dose p.o. lorazepam as needed
DVT prophylaxis: Lovenox
CODE STATUS: DNR
Total time spent on today's encounter was 53 minutes.
Anticipated Discharge: > 48 hours
Subjective/Interval History
-
Date of Service: December 12, 2024
Patient was seen and examined at bedside this morning. Awake and alert. Breathing comfortably on high flow nasal cannula. Daughter present at bedside.
Objective Data
-
Labs:
Laboratory Results
12/12/24
03:19
WBC 9.3
Hgb 8.3 L
Hct 26.7 L
Plt Count 321
Sodium 135
Potassium 5.0
Chloride 98
Carbon Dioxide 35 H
BUN 30 H
Creatinine 0.8
Glucose 114 H
Calcium 9.2
Vital Signs:
Vital Signs
Temp Pulse Resp BP Pulse Ox
98.2 F 108 30 144/118 97
12/12/24 03:41 12/12/24 14:05 12/12/24 14:05 12/12/24 12:00 12/12/24 14:05
I&O
12/11/24 12/12/24 12/13/24
06:59 06:59 06:59
Output Total 500 / 500 650 / 650 600 / 600
Balance -500 / -500 -650 / -650 -600 / -600
Review of Systems
-
History Source: Patient
All other systems: Reviewed and negative
Physical Exam
-
General: No Apparent Distress and Appears Chronically Ill
[2024-12-12] MEDS: VALIUM INJECTION 1.25 MG IV (16:18)
--- NOTE | 2024-12-12 17:23 | PTCARENOTE ---
Rec'd pt this AM. Remains on HFNC with NRB mask as needed. Pt reported severe anxiety. RN notified Dr. Yoon who was cross covering. Pt given IV Valium and her PO Ativan order is now q4. RN answered pt's questions about hospice. Encouarged her
to continues discussion with manipulative therapy specialist during tomorrow's meeting. Emotional support provided.
[2024-12-12] MEDS: LIPITOR 10 MG PO (18:22)
[2024-12-12] MEDS: LOVENOX 30 MG SC (18:22)
[2024-12-12] MEDS: MELATONIN 5 MG PO (20:23)
[2024-12-12] MEDS: REMERON 7.5 MG PO (20:23)
[2024-12-12] MEDS: PLAQUENIL 200 MG PO (20:25)
[2024-12-12] MEDS: BENADRYL 25 MG PO (20:26)
[2024-12-13] VITALS (8 sets, daily range): BP systolic 108–140; BP diastolic 55–79
[2024-12-13] MEDS: SYNTHROID 100 MCG PO (04:46)
[2024-12-13] MEDS: MAXIPIME 1000 MG IV (04:46)
[2024-12-13] MEDS: STERILE WATER FOR INJECTION 10 ML IV (04:46)
[2024-12-13] MEDS: VALIUM INJECTION 1.25 MG IV ×2 (05:07→09:08)
[2024-12-13] MEDS: MORPHINE SULFATE 1 MG IV (07:12)
[2024-12-13] MEDS: SODIUM CHLORIDE 3% FOR INHALATION 1 VIAL INH ×3 (07:20→19:04)
[2024-12-13] MEDS: DUONEB 3 ML INH ×3 (07:20→19:04)
[2024-12-13] MEDS: PULMICORT 0.5 MG INH ×2 (07:21→19:04)
--- NOTE | 2024-12-13 07:41 | PTCARENOTE ---
Pt with O2 sat in 80s this AM. RT had weaned pt's HF overnight. Pt in respiratory distress and anxiety. Notified overnight SELF SEALING FUEL TANK BUILDER, Yuliana Hearn. Morphine stat dose and PRN morphine ordered. Dayshift RT at bedside and increased pt's HF settings. Pt now
recovered to 97%. Pt very anxious about hospice meeting today.
[2024-12-13] MEDS: DELTASONE 30 MG PO (08:31)
[2024-12-13] MEDS: VISBIOME 1 CAP PO (08:32)
[2024-12-13] MEDS: LEXAPRO 20 MG PO (08:32)
[2024-12-13] MEDS: THERAGRAN 1 TABLET PO (08:33)
[2024-12-13] MEDS: PEPCID 20 MG PO (08:33)
[2024-12-13] MEDS: MUCINEX 600 MG PO (08:33)
[2024-12-13] MEDS: COLACE 200 MG PO (08:33)
--- NOTE | 2024-12-13 09:55 | W.PN.HOSP.TC ---
Today's Communication/Plan
-
hospice consult
Assessment / Plan
Assessment / Plan
79yo F with PMHX of RA, hypothyroidism, anxiety, advanced COPD and ILD on with chronic hypoxic hypercapnic respiratory failure on 2L O2, frequent admissions for COPD exacerbation and pneumonia came with worsening SOB for few days before admisison
as well as LE edema
A/P:
#Advanced COPD with acute on chronic hypoxic hypercapnic respiratory failure
#acute on chronic HFpEF
#Hx of lee pneumonia
#Pneumonia with unspecified organism
#Multiple pulmonary nodules
#Hx of tobacco abuse
#Bronchiectatic disease
XR with Interval worsening of confluent airspace disease within the right mid and lower lung suspicious for recurrent pneumonia
cont cefepime, vanco stopped as MRSA screen neg
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
Manager Ct recommending hospice with progressive disease and multiple hospital readmission with poor quality of life.
s/p Bronchoscopy results 06/12/20: No endobronchial lesions. BAL was performed in both lower lobes and right upper lobe/AFB neg
#Hyperkalemia
most likely 2/2 metabolic acidosis
s/p lokelma
follow BMP
#Anemia, chronic
follow CBC
anemia w/u
PPI for GI PPX due to steroids
#RA
#Hypothyroidism
#Anxiety
#Hx of breast CA s/p L lumpectomy with axillary lymph node dissection
cont home meds
#Chronic elevation of aminotransferases
follow LFT
check HepC
#Severe protein calorie malnutrition
BMI 17.5
increase calorie intake
DVT ppx lovenox
DNR/DNI
I have spent at least 57min reviewing hcart, test results, communication with consultants, family and providing direct patient care
Anticipated Discharge: 24 - 48 hours
Subjective/Interval History
-
Date of Service: December 13, 2024
Objective Data
-
Vital Signs:
Vital Signs
Temp Pulse Resp BP Pulse Ox
98.1 F 96 28 134/79 97
12/12/24 23:00 12/13/24 07:23 12/13/24 07:23 12/13/24 06:00 12/13/24 07:24
I&O
12/12/24 12/13/24 12/14/24
06:59 06:59 06:59
Intake Total 240 / 240
Output Total 650 / 650 1550 / 1550
Balance -650 / -650 -1310 / -1310
Review of Systems
-
History Source: Patient
All other systems: Reviewed and negative
Physical Exam
-
General: Comfortable
HEENT: Normocephalic
Respiratory: Decreased Breath Sounds
Cardiac: Regular Rhythm
GI: Soft, Nontender and Nondistended
Genito-urinary: No Costovertebral Tender
Musculoskeletal: No Clubbing, No Cyanosis and No Edema
Neuro: Awake, Alert, Oriented and AO x 3
Psych: Calm
--- NOTE | 2024-12-13 10:23 | W.PN.PUL.V3 ---
Today's Communication / Plan
-
Wean oxygen
Aspiration precautions
Prednisone 30 mg daily
Hospice evaluation
Assessment
-
Patient is a 79-year-old F with a history of COPD/restrictive lung disease, traction bronchiectasis and pulmonary nodules well known to our practice, recently discharged for admission due to CO2 retention and hypoxemia now readmitted with shortness
of breath. CXR showing multifocal PNA. She was recently discharged on 11/24/24. This is her 5th admission this year for recurrent mucus plugging/PNA, AECOPD, CO2 retention or combination of previous. She has history of poor mucus clearance,
severe restrictive lung disease, and has declined treatments as an OP. We are consulted for evaluation.
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
Acute on chronic SOB
Bilateral PNA
Hyperkalemia
Acute on chronic hypercarbic respiratory failure, VBG
Component of HF exacerbation, proBNP 3150
Conditions present prior to admission:
Recent hospitalization-discharge 11/10/2024 with confusion with recommendation of neuropsychiatric outpatient workup, pulmonary recommended palliative care to the family
Severe Left lower lobe pneumonia s/p bronchoscopy 08/12/24 mostly lee (mucus plugging/poor airway clearance)
R hip fractures s/p cemented bipolar endoprosthesis 02/23/24 s/p mechanical fall
Multiple lung nodules, measuring 3-5mm
s/p Bronchoscopy results 06/12/20: No endobronchial lesions. BAL was performed in both lower lobes and right upper lobe/AFB neg
COPD, severe-3 L oxygen at rest and 6 L with activity
Followed by Dr Melo as OP
PFT - FEV1 was 1.26 L or 59% of predicted and previously was 1.50 L or 74% predicted
Cylindrical bronchiectasis RML and lingula
Fibrosis noted on CT, new/progressed
History of tobacco abuse/[id number] smoking history. Quit around 2009.
Multiple pulmonary nodules..
Mucus plugging
History of pleural effusion
Interstitial lung disease
Rheumatoid arthritis w/ Immunosuppressed status .
Hypothyroid
History of breast cancer s/p Left lumpectomy and axillary node dissection for stage I left breast carcinoma (1993, radiation/no chemo)
Plan
Patient recently admitted to hospital with COPD flare-discharged 11/24/24
This is her 5th admission this year
Respiratory status still somewhat tenuous on high flow oxygen
Continue supplemental oxygen-attempt to wean
Aspiration precautions-last speech therapy evaluation 11/21/24
Continue nebulizers-Pulmicort and DuoNebs
Hypertonic saline
Prednisone 30 mg daily
Mucinex continues
Mucus clearing devices as tolerated
BiPAP if needed
CXR showing extensive bilateral pneumonia, compared to prior CT/chest x-ray
She had a similar admission in in July where she was admitted for prolonged stay requiring bronchoscopy and aggressive airway clearance to help her with mucous plugging
Prior history of severe restriction, bronchiectasis, COPD
She has very poor airway clearance efforts, she has declined vest therapy in the past. Agreeable to try Acapella now.
We have had numerous discussions in the past regarding readmission rates and recurrent plugging
Acute on chronic hypercarbia as noted, VBG with CO2 77
She has not tolerated BiPAP in the past
Cultures reviewed
Empiric antibiotics
Unable to produce sputum
Gentle diuresis
Monitor renal function, electrolytes, intake/output, lower extremity edema and weight
Replace electrolytes as needed
DVT prophylaxis-on Lovenox
GI prophylaxis-on pantoprazole
Nutrition
Bedside range of motion/physical therapy
12/10/24, Kameron Pascual, 'We had a realistic discussion in terms of her prognosis with her present
Her QoL is very poor, but she remains unrealistic about her quality of life although her understands and is tearful
She states that she does not mind being readmitted to the hospital this many times
Patient is a DNR/DNI
Hospice discussions ongoing-Dr. Molina spoke to daughter as well as about hospice on 12/13/2024
Hospice team to come in and speak to them more extensively
Recommend CERTIFIED SCRUB TECH eval; she does have a history of mild oral/pharyngeal dysphagia per prior CERTIFIED SCRUB TECH evaluation in July 2024
Aspiration precautions, high risk
Continue physical/occupational therapy-came from subacute rehabilitation.
Discussed with daughter at bedside, hospice evaluation in AM.

Diagnostic data:
CXR 12/10/24- Interval worsening of confluent airspace disease within the right mid and lower lung suspicious for recurrent pneumonia superimposed upon chronic lung disease.
Chest x-ray 11/19/2024-interstitial lung disease/fibrosis, mild cardiomegaly
CXR 11/08/24- There is slightly increased interstitial and bibasilar opacities which may be secondary to multifocal pneumonia or superimposed edema in the setting of extensive chronic lung change.
CXR 08/15/24- Right PICC tip in the mid third of the superior vena cava. No pneumothorax. No other significant interval change.
Chest x-ray 08/13/24- Persistent left lung pneumonia, with improved aeration at the left lung base. Subtle air-fluid levels are noted superimposed on the left mid to lower lung zone, consistent with parenchymal cavities, possibly related to
necrotizing pneumonia. Mild thickening along the left major fissure, which could represent inflammatory reaction or fluid.
CT Chest 11/08/24- 1. There are findings of chronic interstitial/fibrotic lung disease with increased nodular consolidations with surrounding groundglass opacities in the right middle and lower lobes which likely represents pneumonia. 2. Similar
appearance of the cystic and nodular opacities within the left lower lobe which may be sequelae of prior cavitary pneumonia/pulmonary abscess.
CT CHEST 08/06/2024: There is increased extensive consolidation throughout the left lower lobe as well as nodular opacities in the right lower lobe consistent with worsening multifocal pneumonia. There are multiple gas containing foci within the
left lower lobe which appears slightly increased from prior and likely represent an element of cavitary pneumonia. Additionally there is a 4.7 x 3.1 cm and a 3.4 x 2.3 cm gas and fluid containing focus within the left lower lobe which are suspicious
for pulmonary abscesses.
CT CHEST 01/2024: 1.). The stability of the multiple bilateral pulmonary nodules dating back to 08/11/2020 suggests that they are benign
2). COPD with worsening predominantly interstitial fibrosis and bronchiectasis at the lung bases
3). Minimal left pleural effusion
PET/CT 02/04/20: IMPRESSION:� Pulmonary nodules with minimal FDG activity.� However, despite small size and low level activity, the 6.7 mm index lesion in the right upper lobe has a 25% increase in FDG activity on real-time point imaging. Suspicious
for neoplasm.� No FDG avid adenopathy. Physiologic versus pathologic FDG activity associated with the cecum and ascending colon. Recommend further evaluation/correlation with colonoscopy.� Likely physiologic asymmetric FDG activity associated with
the posterior margin of the left vocal cord. Clinical correlation recommended to exclude the possibility of asymmetric right vocal cord paralysis.
ECHO 08/06/24- Normal biventricular size and systolic function without regional wall motion abnormality. No significant valvular disease. No prior study available for comparison.
Subjective Data
-
Date of Service:
Date of Service: December 13, 2024
Chief Complaint: Pulmonary Follow Up and Dyspnea Follow Up
Subjective:
Patient would like to go home with hospice, still on high flow oxygen, no chest pain, shortness of breath, some anxiety, no abdominal pain
Review of Systems
General: Other (Per HPI)
Objective Data
Data Reviewed
Vital Signs / I&O:
Vital Signs
Temp Pulse Resp BP Pulse Ox
98.1 F 96 28 134/79 97
12/12/24 23:00 12/13/24 07:23 12/13/24 07:23 12/13/24 06:00 12/13/24 07:24
Intake and Output
12/12/24 12/13/24 12/14/24
06:59 06:59 06:59
Intake Total 240 / 240
Output Total 650 / 650 1550 / 1550
Balance -650 / -650 -1310 / -1310
SaO2: 97
Nasal Cannula flow liters per minute: 40
Physical Exam
General: Respiratory Distress (n) and Comfortable
HEENT: Normocephalic
Cardiovascular: Regular Rhythm, Murmur and Peripheral Edema
Respiratory: Clear, Non-Labored Respirations and Accessory Resp Muscle Use (n)
GI: Soft, Non Distended and Non Tender
Neurology: Awake, Alert and No Motor Deficits
Skin: Warm, Good Color, Cyanosis (n) and Jaundice (n)
Labs/Micro/Reports
Lab Data
12/12/24 03:19
12/12/24 03:19
Microbiology
12/11/24 04:30 Nose Nasal Screen MRSA (PCR) - Final
MRSA not detected - performed by PCR methodology.
[2024-12-13 10:34] LABS: Iron 44 ug/dl (37-170)
[2024-12-13 10:43] LABS: Total Iron Binding Capacity 198 ug/dl (265-497)
[2024-12-13] MEDS: LOKELMA PO (11:21)
[2024-12-13 11:28] LABS: Ferritin 888.0 ng/ml (11.1-264.0)
[2024-12-13 12:00] LABS: Folate > 20.0 ng/ml (2.76-20); Vitamin B12 876 pg/ml (239-931)
--- NOTE | 2024-12-13 12:23 | HOSPNOTE ---
Met with patient, spouse and multiple family members. Reviewed hospice and the philosophy. Patient wishes to go home with hospice. Reviewed that patient would need to wean down to 15 liters of oxygen to be safe to go home. Plan is to wean down 02
and medicate with oral morphine and Ativan with IV available as a last resort. If able to wean down and medicate with oral, will order equipment for delivery tomorrow and plan to d/c to home hospice on Fri. Family does need today to be able to move
furniture in preparation for equipment delivery tomorrow. JANNET, Primary RN, and attending updated. Will follow daily
--- NOTE | 2024-12-13 13:37 | W.PN.UPDATE ---
Update Note
Progress Note Update
after detailed conversation in between hospice service, family and patient: decision is to start comfort care approach in hospital potentially targeting home hospice after delivery of equipment. Patient and family aware that all active treatment
such as Abx, steroids and diagnostic testing including blood work will be stopped. patiet and family in agremeent with this approach
[2024-12-13] MEDS: MAXIPIME IV (13:41)
[2024-12-13] MEDS: STERILE WATER FOR INJECTION IV ×2 (13:42→21:18)
[2024-12-13] MEDS: MORPHINE ORAL SOLUTION 5 MG PO ×2 (14:21→21:14)
--- NOTE | 2024-12-13 14:23 | CM ---
Discharge POC: Home hospice. Per hospice, needs to wean down to 15 liters of oxygen to be safe to go home. Hospice plan: Wean 02, medicate with oral morphine and Ativan with IV available. When able to wean O2 and medicate with PO, order
equipment, plan for discharge to home on Friday12/15/24, for home hospice.
--- NOTE | 2024-12-13 15:37 | PTCARENOTE ---
Pt started on comfort measures. RT weaned HF to lowest setting at 20L. PO morphine given. pt sleeping. O2 sat 90%. resting comfortably. Will continue efforts to wean pt to 15L MF so that she can go home on hospice with home O2 for comfort.
[2024-12-13] MEDS: LOVENOX SC (17:37)
[2024-12-13] MEDS: MUCINEX PO (20:48)
[2024-12-13] MEDS: MELATONIN PO (21:14)
[2024-12-13] MEDS: ATIVAN 0.5 MG PO (21:14)
[2024-12-13] MEDS: BENADRYL 25 MG PO (21:14)
[2024-12-13] MEDS: REMERON 7.5 MG PO (21:14)
[2024-12-14] VITALS (10 sets, daily range): BP systolic 103–126; BP diastolic 54–70
--- NOTE | 2024-12-14 05:39 | PTCARENOTE ---
PRN Ativan and Morphine administered at bedtime d/t dyspnea and anxiety. Able to wean O2 down to 4L MF with pulse ox 97%; RR 15. Pt able to sleep all night without interruption. Call whiteside within reach.
[2024-12-14] MEDS: SODIUM CHLORIDE 3% FOR INHALATION 1 VIAL INH ×3 (07:42→19:39)
[2024-12-14] MEDS: DUONEB 3 ML INH ×3 (07:42→19:36)
[2024-12-14] MEDS: PULMICORT 0.5 MG INH ×2 (07:42→19:36)
[2024-12-14] MEDS: COLACE 200 MG PO (08:59)
[2024-12-14] MEDS: MUCINEX 600 MG PO ×2 (08:59→19:12)
[2024-12-14] MEDS: VISBIOME 1 CAP PO (08:59)
[2024-12-14] MEDS: LEXAPRO 20 MG PO (08:59)
[2024-12-14] MEDS: THERAGRAN 1 TABLET PO (08:59)
--- NOTE | 2024-12-14 10:38 | W.PN.PUL.V3 ---
Today's Communication / Plan
-
Patient now comfort care-pulmonary will sign off-please call with questions
Assessment
-
Patient is a 79-year-old F with a history of COPD/restrictive lung disease, traction bronchiectasis and pulmonary nodules well known to our practice, recently discharged for admission due to CO2 retention and hypoxemia now readmitted with shortness
of breath. CXR showing multifocal PNA. She was recently discharged on 11/24/24. This is her 5th admission this year for recurrent mucus plugging/PNA, AECOPD, CO2 retention or combination of previous. She has history of poor mucus clearance,
severe restrictive lung disease, and has declined treatments as an OP. We are consulted for evaluation.
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
Acute on chronic SOB
Bilateral PNA
Hyperkalemia
Acute on chronic hypercarbic respiratory failure, VBG
Component of HF exacerbation, proBNP 3150
Conditions present prior to admission:
Recent hospitalization-discharge 11/10/2024 with confusion with recommendation of neuropsychiatric outpatient workup, pulmonary recommended palliative care to the family
Severe Left lower lobe pneumonia s/p bronchoscopy 08/12/24 mostly lee (mucus plugging/poor airway clearance)
R hip fractures s/p cemented bipolar endoprosthesis 02/23/24 s/p mechanical fall
Multiple lung nodules, measuring 3-5mm
s/p Bronchoscopy results 06/12/20: No endobronchial lesions. BAL was performed in both lower lobes and right upper lobe/AFB neg
COPD, severe-3 L oxygen at rest and 6 L with activity
Followed by Dr Melo as OP
PFT - FEV1 was 1.26 L or 59% of predicted and previously was 1.50 L or 74% predicted
Cylindrical bronchiectasis RML and lingula
Fibrosis noted on CT, new/progressed
History of tobacco abuse/[id number] smoking history. Quit around 2009.
Multiple pulmonary nodules..
Mucus plugging
History of pleural effusion
Interstitial lung disease
Rheumatoid arthritis w/ Immunosuppressed status .
Hypothyroid
History of breast cancer s/p Left lumpectomy and axillary node dissection for stage I left breast carcinoma (1993, radiation/no chemo)
Plan
Patient recently admitted to hospital with COPD flare-discharged 11/24/24
This is her 5th admission this year
Respiratory status still somewhat tenuous on high flow oxygen
Continue supplemental oxygen-attempt to wean
Aspiration precautions-last speech therapy evaluation 11/21/24
Continue nebulizers-Pulmicort and DuoNebs
Hypertonic saline
Prednisone 30 mg daily
Mucinex continues
Mucus clearing devices as tolerated
BiPAP if needed
CXR showing extensive bilateral pneumonia, compared to prior CT/chest x-ray
She had a similar admission in in July where she was admitted for prolonged stay requiring bronchoscopy and aggressive airway clearance to help her with mucous plugging
Prior history of severe restriction, bronchiectasis, COPD
She has very poor airway clearance efforts, she has declined vest therapy in the past. Agreeable to try Acapella now.
We have had numerous discussions in the past regarding readmission rates and recurrent plugging
Acute on chronic hypercarbia as noted, VBG with CO2 77
She has not tolerated BiPAP in the past
Cultures reviewed
Empiric antibiotics
Unable to produce sputum
Gentle diuresis
Monitor renal function, electrolytes, intake/output, lower extremity edema and weight
Replace electrolytes as needed
DVT prophylaxis-on Lovenox
GI prophylaxis-on pantoprazole
Nutrition
Bedside range of motion/physical therapy
12/10/24, Kameron Pascual, 'We had a realistic discussion in terms of her prognosis with her present
Her QoL is very poor, but she remains unrealistic about her quality of life although her understands and is tearful
She states that she does not mind being readmitted to the hospital this many times
Patient is a DNR/DNI
Hospice discussions ongoing-Dr. Molina spoke to daughter as well as about hospice on 12/13/2024
Hospice team had further discussions 12/13/2024
Patient now comfort care-pulmonary will sign off-please call with questions

Diagnostic data:
CXR 12/10/24- Interval worsening of confluent airspace disease within the right mid and lower lung suspicious for recurrent pneumonia superimposed upon chronic lung disease.
Chest x-ray 11/19/2024-interstitial lung disease/fibrosis, mild cardiomegaly
CXR 11/08/24- There is slightly increased interstitial and bibasilar opacities which may be secondary to multifocal pneumonia or superimposed edema in the setting of extensive chronic lung change.
CXR 08/15/24- Right PICC tip in the mid third of the superior vena cava. No pneumothorax. No other significant interval change.
Chest x-ray 08/13/24- Persistent left lung pneumonia, with improved aeration at the left lung base. Subtle air-fluid levels are noted superimposed on the left mid to lower lung zone, consistent with parenchymal cavities, possibly related to
necrotizing pneumonia. Mild thickening along the left major fissure, which could represent inflammatory reaction or fluid.
CT Chest 11/08/24- 1. There are findings of chronic interstitial/fibrotic lung disease with increased nodular consolidations with surrounding groundglass opacities in the right middle and lower lobes which likely represents pneumonia. 2. Similar
appearance of the cystic and nodular opacities within the left lower lobe which may be sequelae of prior cavitary pneumonia/pulmonary abscess.
CT CHEST 08/06/2024: There is increased extensive consolidation throughout the left lower lobe as well as nodular opacities in the right lower lobe consistent with worsening multifocal pneumonia. There are multiple gas containing foci within the
left lower lobe which appears slightly increased from prior and likely represent an element of cavitary pneumonia. Additionally there is a 4.7 x 3.1 cm and a 3.4 x 2.3 cm gas and fluid containing focus within the left lower lobe which are suspicious
for pulmonary abscesses.
CT CHEST 01/2024: 1.). The stability of the multiple bilateral pulmonary nodules dating back to 08/11/2020 suggests that they are benign
2). COPD with worsening predominantly interstitial fibrosis and bronchiectasis at the lung bases
3). Minimal left pleural effusion
PET/CT 02/04/20: IMPRESSION:� Pulmonary nodules with minimal FDG activity.� However, despite small size and low level activity, the 6.7 mm index lesion in the right upper lobe has a 25% increase in FDG activity on real-time point imaging. Suspicious
for neoplasm.� No FDG avid adenopathy. Physiologic versus pathologic FDG activity associated with the cecum and ascending colon. Recommend further evaluation/correlation with colonoscopy.� Likely physiologic asymmetric FDG activity associated with
the posterior margin of the left vocal cord. Clinical correlation recommended to exclude the possibility of asymmetric right vocal cord paralysis.
ECHO 08/06/24- Normal biventricular size and systolic function without regional wall motion abnormality. No significant valvular disease. No prior study available for comparison.
Subjective Data
-
Date of Service:
Date of Service: December 14, 2024
Chief Complaint: Pulmonary Follow Up and Dyspnea Follow Up
Subjective:
Patient currently comfortable
Review of Systems
General: Other ( for HPI)
Objective Data
Data Reviewed
Vital Signs / I&O:
Vital Signs
Temp Pulse Resp BP Pulse Ox
98.1 F 98 20 117/70 92
12/13/24 23:15 12/14/24 08:00 12/14/24 08:00 12/14/24 08:00 12/14/24 08:12
Intake and Output
12/13/24 12/14/24 12/15/24
06:59 06:59 06:59
Intake Total 240 / 240
Output Total 1550 / 1550 300 / 300
Balance -1310 / -1310 -300 / -300
SaO2: 92
Nasal Cannula flow liters per minute: 20
Physical Exam
General: Respiratory Distress (n) and Comfortable
HEENT: Normocephalic
Cardiovascular: Regular Rhythm, Murmur and Peripheral Edema
Respiratory: Clear, Non-Labored Respirations and Accessory Resp Muscle Use (n)
GI: Soft, Non Distended and Non Tender
Neurology: Awake, Alert and No Motor Deficits
Skin: Warm, Good Color, Cyanosis (n) and Jaundice (n)
Labs/Micro/Reports
Lab Data
12/12/24 03:19
12/12/24 03:19
Microbiology
12/11/24 04:30 Nose Nasal Screen MRSA (PCR) - Final
MRSA not detected - performed by PCR methodology.
--- NOTE | 2024-12-14 10:44 | W.PN.HOSP.TC ---
Today's Communication/Plan
-
cont comfort care, Abx stopped. Plan to d/c home with hospice when all equipment delivered
Assessment / Plan
Assessment / Plan
79yo F with PMHX of RA, hypothyroidism, anxiety, advanced COPD and ILD on with chronic hypoxic hypercapnic respiratory failure on 2L O2, frequent admissions for COPD exacerbation and pneumonia came with worsening SOB for few days before admission
as well as LE edema. Salt Manager recommending hospice with progressive disease and multiple hospital readmission with poor quality of life.
after detailed conversation in between hospice service, family and patient: decision is to start comfort care approach in hospital potentially targeting home hospice after delivery of equipment. Patient and family aware that all active treatment
such as Abx, steroids and diagnostic testing including blood work will be stopped. patiet and family in agremeent with this approach
A/P:
#Advanced COPD with acute on chronic hypoxic hypercapnic respiratory failure
#acute on chronic HFpEF
#Hx of lee pneumonia
#Pneumonia with unspecified organism
#Multiple pulmonary nodules
#Hx of tobacco abuse
#Bronchiectatic disease
#Hyperkalemia
#Anemia, chronic
#RA
#Hypothyroidism
#Anxiety
#Hx of breast CA s/p L lumpectomy with axillary lymph node dissection
#Chronic elevation of aminotransferases
#Severe protein calorie malnutrition
COmfort care only
I have spent at least 36min reviewing hcart, test results, communication with consultants, family and providing direct patient care
Anticipated Discharge: Within 24 hours
Subjective/Interval History
-
Date of Service: December 14, 2024
Objective Data
-
Vital Signs:
Vital Signs
Temp Pulse Resp BP Pulse Ox
98.1 F 98 20 117/70 92
12/13/24 23:15 12/14/24 08:00 12/14/24 08:00 12/14/24 08:00 12/14/24 10:38
I&O
12/13/24 12/14/24 12/15/24
06:59 06:59 06:59
Intake Total 240 / 240
Output Total 1550 / 1550 300 / 300
Balance -1310 / -1310 -300 / -300
Review of Systems
-
History Source: Patient and Family
All other systems: Reviewed and negative
Physical Exam
-
General: Comfortable
Neuro: Awake, Alert, Oriented and AO x 3
Psych: Calm
--- NOTE | 2024-12-14 13:01 | HOSPNOTE ---
Patient will be sent home tomorrow with hospice services. Equipment was ordered and will be delivered in the am, transport is needed and OOH DNR on chart. Once patient is home we will admit onto hospice services. Attending and CM aware of plan.
--- NOTE | 2024-12-14 14:52 | PTCARENOTE ---
Pt's assessment as documented. Aox3. Sating mid 90's on 4L MF. NSR on tele monitor. Family at bedside, emotional support provided. Ringing appropriately, call whiteside within reach.
--- NOTE | 2024-12-14 15:29 | CM ---
Patient for discharge tomorrow to home with plan for initiation of hospice services. Transport requested for 12:00N. Awaiting confirmation. OOH-DNR place in chart for attending to sign. Attending notified.
[2024-12-14] MEDS: LOVENOX SC (17:12)
[2024-12-14] MEDS: MORPHINE ORAL SOLUTION 5 MG PO (19:12)
[2024-12-14] MEDS: ATIVAN 0.5 MG PO (19:13)
[2024-12-14] MEDS: REMERON 7.5 MG PO (20:52)
[2024-12-14] MEDS: MELATONIN 5 MG PO (20:52)
[2024-12-15] VITALS: BP 119/65
[2024-12-15 02:00] VITALS: BP 112/63
--- NOTE | 2024-12-15 02:45 | DOWNTIME ---
There was a [employer] Client Warehouse Technician Downtime on 12/15/2024 from 0100 to 12/15/2024 at 0235. Downtime documentation of patient's care, including medication administrations, has been reconciled in the electronic record per guidelines. Refer to the
patient's paper chart under the miscellaneous tab to see printed paper medication records and downtime forms.
[2024-12-15 04:00] VITALS: BP 129/66
--- NOTE | 2024-12-15 04:52 | PTCARENOTE ---
No acute events overnight. Patient to be discharged home on hospice today. soaping department supervisor scheduled for 12. PRN morphine and ativan given with positive results. Will continue to monitor.
[2024-12-15 06:00] VITALS: BP 132/62
--- NOTE | 2024-12-15 07:30 | PTCARENOTE ---
On walking rounds pt is AAOx3 YOCHA DEHE and anxious crackles in lungs on 3l O2
[2024-12-15] MEDS: PULMICORT 0.5 MG INH (07:43)
[2024-12-15] MEDS: SODIUM CHLORIDE 3% FOR INHALATION 1 VIAL INH (07:43)
[2024-12-15] MEDS: DUONEB 3 ML INH (07:43)
--- NOTE | 2024-12-15 07:48 | W.PN.HOSP.TC ---
Today's Communication/Plan
-
cont comfot care, dc home on hospice
Assessment / Plan
Assessment / Plan
79yo F with PMHX of RA, hypothyroidism, anxiety, advanced COPD and ILD on with chronic hypoxic hypercapnic respiratory failure on 2L O2, frequent admissions for COPD exacerbation and pneumonia came with worsening SOB for few days before admission
as well as LE edema. Recoater recommending hospice with progressive disease and multiple hospital readmission with poor quality of life.
after detailed conversation in between hospice service, family and patient: decision is to start comfort care approach in hospital potentially targeting home hospice after delivery of equipment. Patient and family aware that all active treatment
such as Abx, steroids and diagnostic testing including blood work will be stopped. patiet and family in agremeent with this approach
A/P:
#Advanced COPD with acute on chronic hypoxic hypercapnic respiratory failure
#acute on chronic HFpEF
#Hx of lee pneumonia
#Pneumonia with unspecified organism
#Multiple pulmonary nodules
#Hx of tobacco abuse
#Bronchiectatic disease
#Hyperkalemia
#Anemia, chronic
#RA
#Hypothyroidism
#Anxiety
#Hx of breast CA s/p L lumpectomy with axillary lymph node dissection
#Chronic elevation of aminotransferases
#Severe protein calorie malnutrition
COmfort care only
I have spent at least 36min reviewing hcart, test results, communication with consultants, family and providing direct patient care
Anticipated Discharge: Today
Subjective/Interval History
-
Date of Service: December 15, 2024
Objective Data
-
Vital Signs:
Vital Signs
Temp Pulse Resp BP Pulse Ox
97.8 F 91 25 132/62 90
12/15/24 07:18 12/15/24 07:44 12/15/24 07:44 12/15/24 06:00 12/15/24 07:44
I&O
12/14/24 12/15/2425
06:59 06:59 06:59
Intake Total 790 / 790
Output Total 300 / 300
Balance -300 / -300 790 / 790
Review of Systems
-
History Source: Patient
All other systems: Reviewed and negative
Physical Exam
-
General: Comfortable
Neuro: Awake and Alert
Psych: Calm
--- NOTE | 2024-12-15 07:52 | W.DCSUMMARY ---
Discharge Summary
Discharge Data
Date of Admission: 12/10/24
Date of Discharge: 12/15/24
-
Pending Results: No
Hospital Course
79yo F with PMHX of RA, hypothyroidism, anxiety, advanced COPD and ILD on with chronic hypoxic hypercapnic respiratory failure on 2L O2, frequent admissions for COPD exacerbation and pneumonia came with worsening SOB for few days before admission
as well as LE edema. 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
after detailed conversation in between hospice service, family and patient: decision is to start comfort care approach in hospital potentially targeting home hospice after delivery of equipment. Patient and family aware that all active treatment
such as Abx, steroids and diagnostic testing including blood work will be stopped. patiet and family in agremeent with this approach. Medically stable to be d/c home with hospice s all equipment got delivered and patient safe for the transportation
I have spent at least 36min reviewing hcart, test results, communication with consultants, family and providing direct patient care
Patient was managed for:
#Advanced COPD with acute on chronic hypoxic hypercapnic respiratory failure
#acute on chronic HFpEF
#Hx of lee pneumonia
#Pneumonia with unspecified organism
#Multiple pulmonary nodules
#Hx of tobacco abuse
#Bronchiectatic disease
#Hyperkalemia
#Anemia, chronic
#RA
#Hypothyroidism
#Anxiety
#Hx of breast CA s/p L lumpectomy with axillary lymph node dissection
#Chronic elevation of aminotransferases
#Severe protein calorie malnutrition
Discharge Plan
-
Patient Disposition: Home with Hospice
Discharge Diagnosis/Procedures: COPD exacerbation
Diet: As tolerated
Referrals:
Harmony Valentin DO [Family Provider, General]
Additional Discharge Medication Instructions: Medciations to be prescribed by hospice service
Prescriptions:
Continued
famotidine 20 mg Tablet
20 mg PO DAILY Qty: 0 0RF
ipratropium-albuterol 0.5 mg-3 mg(2.5 mg base)/3 mL Solution For Nebulization
3 ml INHALATION R Q6HPRN PRN (Reason: SOB)
bisacodyl [Dulcolax (bisacodyl)] 10 mg Suppository
10 mg NM DAILYPRN PRN (Reason: IF NO BM AFTER MOM GIVE ON DAY 5)
budesonide 0.5 mg/2 mL Suspension For Nebulization
0.5 mg inhalation R BID Qty: 60 1RF
lorazepam 0.5 mg tablet
0.25 mg PO TIDPRN PRN (Reason: anxiety) Qty: 6 0RF
acetaminophen [Tylenol] 325 mg Tablet
650 mg PO Q4HPRN PRN (Reason: mild pain)
docusate sodium [Colace] 100 mg Capsule
200 mg PO DAILY
albuterol sulfate 90 mcg/actuation Hfa Aerosol Inhaler
2 puff INHALATION R Q6HPRN PRN (Reason: sob)
melatonin 5 mg Tablet
5 mg PO HS
ipratropium-albuterol 0.5 mg-3 mg(2.5 mg base)/3 mL solution for nebulization
3 ml INHALATION R TID
Discontinued
hydroxychloroquine 200 MG tablet
400 mg PO TUTHSA@2100
therapeutic multivitamin Tablet
1 tab PO DAILY
Visbiome 112.5 billion cell Capsule
1 cap PO DAILY
simvastatin 20 MG tablet
20 mg PO QPM
hydroxychloroquine 200 mg Tablet
200 mg PO SUMOWEFR@2100
diphenhydramine-acetaminophen [Tylenol PM Extra Strength] 25-500 mg Tablet
1 tab PO HSPRN PRN (Reason: sleep)
magnesium hydroxide [Milk of Magnesia] 400 mg/5 mL Suspension
2,400 mg PO [id number] PRN (Reason: IF NO BM BY 3RD DAY GIVE ON DAY 4)
calcium polycarbophil [FiberCon] 625 mg Tablet
625 mg PO DAILY
Fleet Enema 19-7 gram/118 mL Enema
118 ml NM DAILYPRN PRN (Reason: IF NO BM AFTR DULCOLAX GIVE ON DAY 6)
escitalopram oxalate [Lexapro] 20 mg Tablet
20 mg PO DAILY
mirtazapine 7.5 mg Tablet
7.5 mg PO HS
levothyroxine 100 mcg Tablet
100 mcg PO DAILY @ 0600 Qty: 30 0RF
guaifenesin 600 mg Tablet Extended Release 12hr
600 mg PO Q12 Qty: 20 0RF
Lokelma 5 gram powder in packet
5 g PO DAILY Qty: 3 0RF
[place]pson Nasal Mist 0.65 % Aerosol,[place]
2 spray INTRANASAL Q4HPRN PRN (Reason: dryness)
Discharge Orders:
Discharge Patient (As Directed); Ordered 12/15/24
Ordered By: Bradley Coates
Discharge Date and Time
Print Language: ALGERIAN
[2024-12-15 08:00] VITALS: BP 139/68
[2024-12-15] MEDS: MORPHINE ORAL SOLUTION 5 MG PO (09:00)
[2024-12-15] MEDS: MUCINEX 600 MG PO (09:06)
[2024-12-15] MEDS: VISBIOME 1 CAP PO (09:06)
[2024-12-15] MEDS: THERAGRAN 1 TABLET PO (09:06)
[2024-12-15] MEDS: COLACE 200 MG PO (09:07)
[2024-12-15] MEDS: LEXAPRO 20 MG PO (09:07)
--- NOTE | 2024-12-15 10:28 | CM ---
Patient seen at bedside with daughter, plan is for home with [facility] today. IMM completed and signed form placed on chart. CM will continue to follow for discharge planning needs.
Plan; home with hospice today.
[2024-12-15 11:21] VITALS: BP 114/44
--- NOTE | 2024-12-15 11:33 | PTCARENOTE ---
Pt for DC for PU at 1200. belongings packed up and given to daughter
--- NOTE | 2024-12-15 12:01 | PTCARENOTE ---
Pt left via [facility] to home on Hospice
== END 2024-12-15 12:25 | disposition hospice, home (50) | DRG 193 ==
LOC: IMU 15:42
PROVIDERS: Nurse Practitioner Family; Physician Assistant; Student in an Organized Health Care Education/Training Program; ADMITTING PHYSICIAN Internal Medicine; ATTENDING PHYSICIAN Internal Medicine; CONSULT PHYSICIAN Internal Medicine; EMERGENCY PHYSICIAN Emergency Medicine; FAMILY PHYSICIAN Family Medicine
PROC: 5A09357 Assistance with Respiratory Ventilation, Less than 24 Consecutive Hours, Continuous Positive Airway Pressure (ICD-10-PCS; 2024-12-10)
DX: J18.9 Pneumonia, unspecified organism (principal); E43 Unspecified severe protein-calorie malnutrition; J96.21 Acute and chronic respiratory failure with hypoxia; J96.22 Acute and chronic respiratory failure with hypercapnia; I50.33 Acute on chronic diastolic (congestive) heart failure; J44.1 Chronic obstructive pulmonary disease with (acute) exacerbation; J47.0 Bronchiectasis with acute lower respiratory infection; J44.0 Chronic obstructive pulmonary disease with (acute) lower respiratory infection; E87.29 Other acidosis; Z68.1 Body mass index [BMI] 19.9 or less, adult; D84.9 Immunodeficiency, unspecified; Z66 Do not resuscitate; M06.9 Rheumatoid arthritis, unspecified; J84.10 Pulmonary fibrosis, unspecified; I11.0 Hypertensive heart disease with heart failure; E87.5 Hyperkalemia; D63.8 Anemia in other chronic diseases classified elsewhere; E03.9 Hypothyroidism, unspecified; E78.00 Pure hypercholesterolemia, unspecified; Z51.5 Encounter for palliative care; J98.4 Other disorders of lung; R91.8 Other nonspecific abnormal finding of lung field; F32.A Depression, unspecified; F41.9 Anxiety disorder, unspecified; Z79.51 Long term (current) use of inhaled steroids; Z79.899 Other long term (current) drug therapy; Z85.3 Personal history of malignant neoplasm of breast; Z87.891 Personal history of nicotine dependence; Z99.81 Dependence on supplemental oxygen; Z92.3 Personal history of irradiation
CPT/HCPCS: 36600; 71046; 80048; 80053; 80202; 82607; 82728; 82746; 82805; 83540; 83550; 83735; 83880; 84439; 84443; 85025; 85027; 87641; 94640; 94660; 96365; 96367; 96375; 99285